=== PATIENT | female | born 1965 | race Caucasian/White ===

== ENCOUNTER → 2019-06-17 14:08 | Outpatient (BNVA) | payer MEDICARE, MEDICAID, SELFPAY | PROVIDERS: Family Provider Family Medicine; PCP Family Medicine; Visit Provider Nurse Practitioner | DX: F33.1 Major depressive disorder, recurrent, moderate (principal); F41.1 Generalized anxiety disorder | CPT/HCPCS: 99213 ==

== ENCOUNTER 2019-07-06 18:35 | Emergency (ER) | payer MEDICARE, MEDICAID, SELFPAY ==
[2019-07-06] VITALS (19 sets, daily range): BP systolic 126–148; BP diastolic 65–68; PULSE 71–86; RESP 12–23; TEMP 36.4; O2SAT 93–99; BMI 58.1
--- NOTE | 2019-07-06 18:48 | XR_ITS ---
WS: [id number] CHEST XRAY TECHNIQUE: Portable chest. CLINICAL INFORMATION: COMPARISON: FINDINGS: Heart: Normal cardiac silhouette. Lungs: Small right pleural effusion. Slight atelectasis right lung base. Trace left pleural fluid. Suarez rgical clips right lower neck. Bones: Normal visualized bony structures. XR/XR chest 1V portable [id number] IMPRESSION: 1. Small right pleural effusion with slight right basilar atelectasis. 2. Trace left pleural fluid.
--- NOTE | 2019-07-06 18:48 | ECG_ITS ---
Measurements Intervals [place] Rate: 70 P: 10 MI: 159 QRS: 28 QRSD: 90 T: 42 QT: 384 QTc: 417 SINUS RHYTHM Compared to ECG 01/27/2019 10:02:29 No significant changes Electronically Signed On 07-07-2019 17:51:27 COMMUNICATIONS EQUIPMENT OPERATOR by Aniyah Blanca M.D. [id number] f
--- NOTE | 2019-07-06 18:49 | W.ED.CHESTPA ---
HPI - Chest Pain General: Chief Complaint: Chest Pain Stated Complaint: CHEST PAIN Time Seen by Provider: 07/06/19 18:44 History of Present Illness: HPI narrative: Patient arrives via ambulance with complaint of chest pain for a week. Patient states her chest hurts when she takes a deep breath on the right upper side. Says she takes oxycodone nitroglycerin does not seem really to help. Denies diaphoresis nausea and vomiting. MD complaint: chest discomfort Pertinent past history: coronary artery disease Onset (ago): day(s) (7) Timing of current episode: episodic Prior episodes: Yes Onset: during rest and during exertion Pain location: right chest Pain radiation: none Quality: aching Relieving factors: nothing Associated symptoms: Reports no associated symptoms; Deny abdominal pain, dyspnea, fever(s), nausea or vomiting Review of Systems Const: Denies: fever, chills or body aches Eyes: Denies: change in vision or blurry vision ENMT: Denies: throat pain or nasal congestion Card: Reports: chest pain; Denies: shortness of breath on exertion Resp: Denies: shortness of breath, productive cough or non-productive cough GI: Denies: abdominal pain, nausea or vomiting Musc: Denies: extremity pain Skin/Breast: Denies: rash Neuro: Denies: headache Psych: Denies: anxiety or depression Elvis/Lymph: Denies: easy bruising PFSH ED PFSH: Statuses (acute, chronic, etc) shown below reflect problem list status as previously entered and may not be historically accurate Medical History (Updated 06/17/19 @ 14:16 by JODI Dixon) Generalized anxiety disorder (Acute) Major depressive disorder, recurrent, moderate (Acute) Social History (Updated 06/17/19 @ 14:25 by Astrid Adair LPN) Smoking and tobacco status: current every day smoker cigarettes Years cigarettes smoked: 34 Physical Exam Narrative: EXAM NARRATIVE: Morbid obesity Const: COMMON NORMALS: no apparent distress, average body habitus and oriented x3 HENMT: COMMON NORMALS: normocephalic HEAD & SCALP: normal to inspection and normocephalic FACE & SINUS: normal facial exam Eye: COMMON NORMALS: conjunctivae normal GENERAL EYE: normal appearance of both eyes CONJUNCTIVA: Yes conjunctivae normal Neck/C-Spine: COMMON NORMALS: no JVD Chest: COMMONS NORMALS: inspection of chest normal CHEST: Yes localized rib tenderness with anteroposterior compression (Right side) Resp: COMMON NORMALS: normal respiratory effort and clear to auscultation bilaterally AUSCULTATION: clear to auscultation bilaterally Cardio: COMMON NORMALS: no JVD, regular rate and regular rhythm RATE: regular rate RHYTHM: regular rhythm GI: COMMON NORMALS: normal to inspection, nondistended, normoactive bowel sounds Extremity: COMMON NORMALS: normal to inspection and full ROM Neuro: COMMON NORMALS: oriented x3 Course Vital Signs: Vital signs: Vital Signs Temperature 97.5 F L 07/06/19 18:36 Pulse Rate 76 07/06/19 18:36 Respiratory Rate 18 07/06/19 18:36 Blood Pressure 148/65 07/06/19 18:36 Pulse Oximetry 99 07/06/19 18:36 MDM - Chest Pain EKG Data^: EKG 1: EKG interpretation date: 07/06/19 EKG interpretation time: 18:56 Interpretation: NSR Discharge Plan Discharge Prescriptions: No Action bupropion HCl [Wellbutrin SR] 150 mg tablet sustained-release 12 hr 150 mg PO BID RF: 0 gabapentin 300 mg capsule 300 mg PO .bed RF: 0 levothyroxine 100 mcg capsule 100 mcg PO ONCE RF: 0 propranolol 10 mg tablet 10 mg PO BID RF: 0 montelukast [Singulair] 10 mg tablet 10 mg PO ONCE RF: 0 phentermine 37.5 mg capsule 37.5 mg PO ONCE RF: 0 celecoxib [Celebrex] 200 mg capsule 200 mg PO ONCE RF: 0 aripiprazole [Abilify] 5 mg tablet 5 mg PO DAILY Qty: 30 RF: 2 duloxetine [Cymbalta] 60 mg capsule,delayed release(DR/EC) 60 mg PO BID Qty: 60 RF: 2 Coding Level of Care Code ED Data Analytics Chief Scientist for Chg Fwd Exam Problem Focused
[2019-07-06 19:05] LABS: INR 1.07 (0.8-1.2)
[2019-07-06 19:07] LABS: Basophils # 0.1 10^3/uL (0.0-0.1); Basophils % 0.9 %; Eosinophils # 0.2 10^3/uL (0.0-0.8); Eosinophils % 4.4 %; Hematocrit 36.1 % (37.0-47.0); Hemoglobin 11.4 g/dL (11.5-15.3); Lymphocytes # 1.3 10^3/uL (0.8-4.8); Lymphocytes % 22.9 %; Mean Corpuscular HGB Conc 31.6 g/dL (30.0-36.0); Mean Corpuscular Hemoglobin 28.5 pg (28.0-34.0); Mean Corpuscular Volume 90.3 fL (81-99); Mean Platelet Volume 10.2 fL (7.4-10.4); Monocytes # 0.7 10^3/uL (0.2-0.9); Monocytes % 12.3 %; Neutrophils # 3.2 10^3/uL (1.8-7.7); Neutrophils % 59.3 %; Nucleated Red Blood Cells % 0 %; Platelet Count 263 10^3/cmm (130-400); Red Cell Distribution Width 17.3 % (12.1-15.1); White Blood Count 5.5 10^3/uL (4.0-10.0)
[2019-07-06 19:25] LABS: Troponin(5th) Baseline 10 ng/mL (0-10)
[2019-07-06 19:34] LABS: Alanine Aminotransferase 14 U/L (0-33); Albumin Level 3.4 g/dL (3.5-5.2); Alkaline Phosphatase 255 IU/L (35-105); Aspartate Amino Transferase 24 U/L (0-32); Blood Urea Nitrogen 15 mg/dL (6-20); Calcium 10.1 mg/dL (8.5-10.5); Carbon Dioxide 26 mmol/L (22-29); Chloride 105 mmol/L (98-107); Globulin 3.3 g/dL (1.3-4.6); Glomerular Filtration Rate 58.2 mL/min (90-130); Glucose 104 mg/dL (74-109); NT Pro B Type Natriuretic Pept 64 pg/mL (0-125); Sodium 142 mmol/L (136-145); Total Bilirubin 0.4 mg/dL (0.15-1.2); Total Protein 6.7 g/dL (6.6-8.7)
[2019-07-06] MEDS: ketorolac 10 mg Tablet PO (19:47)
[2019-07-06 20:48] LABS: Troponin 5 2HR 9.71 ng/mL (0-10)
[2019-07-06 20:55] LABS: Troponin 5 2HR Delta -0.29 ABS# (0-10)
== END 2019-07-06 20:30 | disposition home or self-care (01) ==
PROVIDERS: Emergency Provider Nurse Practitioner Family; Family Provider Family Medicine; PCP Family Medicine
DX: R07.9 Chest pain, unspecified (principal); F17.210 Nicotine dependence, cigarettes, uncomplicated
CPT/HCPCS: 36415; 71045; 80053; 83880; 84484; 85025; 85610; 93005; 99282

== ENCOUNTER → 2019-07-24 10:30 | Outpatient (BNVA) | payer MEDICARE, MEDICAID, SELFPAY | PROVIDERS: Family Provider Family Medicine; PCP Family Medicine; Visit Provider Specialist | DX: G43.711 Chronic migraine without aura, intractable, with status migrainosus (principal) | CPT/HCPCS: 64615; J0585 ==

== ENCOUNTER 2019-08-12 10:30 | Emergency (ER) | payer MEDICARE, MEDICAID, SELFPAY ==
[2019-08-12 10:35] VITALS: BP 149/82; PULSE 85; RESP 15; TEMP 36.9; O2SAT 100; BMI 58.1
--- NOTE | 2019-08-12 11:17 | XR_ITS ---
WS: [id number] XR chest 1V portable [id number] REASON FOR EXAM: cough FINDINGS: Low-grade infiltrate is seen in the right lower lung. The remaining lung garza show normal appearance with normal aeration, no pulmonary edema, pneumonia, pleural effusion. The heart and mediastinal interfaces are normal. XR/XR chest 1V portable [id number] IMPRESSION: Early inflammatory changes suggesting a pneumonitis in the right lung base.
--- NOTE | 2019-08-12 12:32 | W.ED.GENADLT ---
HPI - General Adult General: Chief complaint: General Medical Stated complaint: COUGH` Time Seen by Provider: 08/12/19 12:30 History of Present Illness: HPI narrative: Patient with cough last few days. No fever chills no shortness of breath no chest pain complaint: cough Onset (ago): day(s) Location: chest Radiation: non-radiation Relieving factors: none Exacerbating factors: none Associated symptoms: Reports cough; Deny chest pain, dyspnea, fevers/chills, headache(s), nausea, rash or vomiting Review of Systems Const: Denies: fever, chills or body aches Eyes: Denies: change in vision or blurry vision ENMT: Denies: throat pain or nasal congestion Card: Denies: chest pain or shortness of breath on exertion Resp: Reports: non-productive cough; Denies: shortness of breath or productive cough GI: Denies: abdominal pain, nausea or vomiting Musc: Denies: extremity pain Skin/Breast: Denies: rash Neuro: Denies: headache Psych: Denies: anxiety or depression Elivs/Lymph: Denies: easy bruising PFSH ED PFSH: Social History Smoking and tobacco status: current every day smoker cigarettes Years cigarettes smoked: 34 Physical Exam Const: COMMON NORMALS: no apparent distress, average body habitus and oriented x3 HENMT: COMMON NORMALS: normocephalic HEAD & SCALP: normal to inspection and normocephalic FACE & SINUS: normal facial exam Eye: COMMON NORMALS: conjunctivae normal GENERAL EYE: normal appearance of both eyes CONJUNCTIVA: Yes conjunctivae normal Neck/C-Spine: COMMON NORMALS: no JVD Chest: COMMONS NORMALS: inspection of chest normal Resp: COMMON NORMALS: normal respiratory effort and clear to auscultation bilaterally AUSCULTATION: clear to auscultation bilaterally Cardio: COMMON NORMALS: no JVD, regular rate and regular rhythm RATE: regular rate RHYTHM: regular rhythm GI: COMMON NORMALS: normal to inspection, nondistended, normoactive bowel sounds Extremity: COMMON NORMALS: normal to inspection and full ROM Neuro: COMMON NORMALS: oriented x3 Course Vital Signs: Vital signs: Vital Signs Temperature 98.4 F 08/12/19 10:35 Pulse Rate 85 08/12/19 10:35 Respiratory Rate 15 08/12/19 10:35 Blood Pressure 149/82 08/12/19 10:35 Pulse Oximetry 100 08/12/19 10:35 Discharge Plan Discharge Prescriptions: No Action bupropion HCl [Wellbutrin SR] 150 mg tablet sustained-release 12 hr 150 mg PO BID RF: 0 gabapentin 300 mg capsule 300 mg PO .bed RF: 0 levothyroxine 100 mcg capsule 100 mcg PO ONCE RF: 0 propranolol 10 mg tablet 10 mg PO BID RF: 0 montelukast [Singulair] 10 mg tablet 10 mg PO ONCE RF: 0 phentermine 37.5 mg capsule 37.5 mg PO ONCE RF: 0 celecoxib [Celebrex] 200 mg capsule 200 mg PO ONCE RF: 0 aripiprazole [Abilify] 5 mg tablet 5 mg PO DAILY Qty: 30 RF: 2 duloxetine [Cymbalta] 60 mg capsule,delayed release(DR/EC) 60 mg PO BID Qty: 60 RF: 2 Coding Level of Care Code ED Cytogeneticist for Jose Graham
[2019-08-12 12:41] VITALS: BP 158/89; PULSE 75; RESP 18; O2SAT 95
== END 2019-08-12 12:41 | disposition home or self-care (01) ==
PROVIDERS: Emergency Provider Nurse Practitioner Family; Family Provider Family Medicine; PCP Family Medicine
DX: R05 Cough (principal); F17.210 Nicotine dependence, cigarettes, uncomplicated
CPT/HCPCS: 71045; 99281; 99282

== ENCOUNTER → 2019-09-10 07:37 | Outpatient (BNVA) | payer MEDICARE, MEDICAID, SELFPAY | PROVIDERS: Family Provider Family Medicine; PCP Family Medicine; Visit Provider Nurse Practitioner | DX: F33.1 Major depressive disorder, recurrent, moderate (principal); F41.1 Generalized anxiety disorder | CPT/HCPCS: 99213 ==

== ENCOUNTER 2019-10-07 15:13 | Emergency (ER) | payer MEDICARE, MEDICAID, SELFPAY ==
[2019-10-07 15:14] VITALS: BP 144/79; PULSE 80; RESP 20; TEMP 36.9; O2SAT 99; BMI 54.8
--- NOTE | 2019-10-07 15:18 | W.ED.WEAKNES ---
HPI - Weakness General: Chief complaint: Weakness Stated complaint: WEAKNESS Time Seen by Provider: 10/07/19 15:14 History of Present Illness: HPI Narrative: Patient reportedly called EMS because she has been generally tired and weak today. Patient states that she got up to go to the bathroom and was walking just fine but had difficulty getting back to her chair. Patient did not fall, she says that her legs just feel heavy it should be noted that this patient is severely morbidly obese. MD Complaint: generalized weakness, lack of energy and difficulty walking Duration: constant Location: generalized, LLE and RLE Migration: none Severity: severe Review of Systems General: Reports: 10 or more systems reviewed and unremarkable except in HPI and below Const: Reports: body aches, fatigue and malaise PFSH ED PFSH: Medical History Generalized anxiety disorder Major depressive disorder, recurrent, moderate Social History Smoking and tobacco status: current every day smoker cigarettes Years cigarettes smoked: 34 Physical Exam Const: COMMON NORMALS: no apparent distress, oriented x3 and alert GENERAL APPEARANCE: disheveled NUTRITIONAL APPEARANCE: obese morbidly obese HENMT: COMMON NORMALS: normocephalic HEAD & SCALP: normocephalic Neck/C-Spine: COMMON NORMALS: no JVD Resp: COMMON NORMALS: normal respiratory effort and clear to auscultation bilaterally AUSCULTATION: clear to auscultation bilaterally Cardio: COMMON NORMALS: no JVD, regular rate and regular rhythm RATE: regular rate RHYTHM: regular rhythm GI: COMMON NORMALS: soft to palpation, non-tender, no hepatosplenomegaly and no masses PALPATION: Yes soft and Yes no hepatosplenomegaly Extremity: NARRATIVE EXTREMITY EXAM: Extremely severe morbid obesity Neuro: COMMON NORMALS: oriented x3 SENSORIUM/ORIENTATION: Yes alert Course Vital Signs: Vital signs: Vital Signs Temperature 98.5 F 10/07/19 15:14 Pulse Rate 80 10/07/19 15:14 Respiratory Rate 20 H 10/07/19 15:14 Blood Pressure 144/79 10/07/19 15:14 Pulse Oximetry 99 10/07/19 15:14 MDM - Weakness Lab Data: Labs: Lab Results 04/28/20 Range/Units 15:20 POC Glucose 88 (70-110) mg/dL Discharge Plan Discharge Condition: Stable Prescriptions: No Action bupropion HCl [Wellbutrin SR] 150 mg tablet sustained-release 12 hr 150 mg PO BID RF: 0 gabapentin 300 mg capsule 300 mg PO .bed RF: 0 levothyroxine 100 mcg capsule 100 mcg PO ONCE RF: 0 propranolol 10 mg tablet 10 mg PO BID RF: 0 montelukast [Singulair] 10 mg tablet 10 mg PO ONCE RF: 0 phentermine 37.5 mg capsule 37.5 mg PO ONCE RF: 0 celecoxib [Celebrex] 200 mg capsule 200 mg PO ONCE RF: 0 aripiprazole [Abilify] 5 mg tablet 5 mg PO DAILY Qty: 30 RF: 2 duloxetine [Cymbalta] 60 mg capsule,delayed release(DR/EC) 60 mg PO BID Qty: 60 RF: 2 oxycodone 5 mg tablet 5 mg PO Q6H PRN (Reason: pain) RF: 0 zonisamide [Zonegran] 100 mg capsule 600 mg PO DAILY Qty: 180 RF: 2 Zithromax Z-Denzel 250 mg tablet See Rx Instructions .ROUTE .COMPLEX Qty: 6 RF: 0 Medrol (Denzel) 4 mg tablets,dose pack See Rx Instructions .ROUTE .COMPLEX Qty: 21 RF: 0 Coding Level of Care Code ED Rheumatologist for Chg Fwd Exam Detailed
--- NOTE | 2019-10-07 15:25 | XR_ITS ---
WS: [id number] PORTABLE CHEST HISTORY: weakness COMPARISON: None available. Very mild fluid overload and interstitial edema. Small bilateral pleural effusions, RIGHT greater edgardo n LEFT. Mild progression since the prior study. Cardiac size: Normal. Mediastinum/Aorta: Normal mediastinum. No osseous abnormality seen. XR/XR chest 1V portable [id number] IMPRESSION: 1. Mild interstitial edema has developed since 08/12/2019. 2. Small bilateral pleural effusions, RIGHT greater than LEFT.
--- NOTE | 2019-10-07 15:25 | CT_ITS ---
WS: [id number] CT HEAD NONCONTRAST HISTORY: somnolence TECHNIQUE: Contiguous axial imaging performed through the brain in 2.5 mm imaging. Bone and soft tiss ue windows. Sagittal and coronal reformats reviewed. All CT scans at [facility] use at ast one of these dose optimization techniques: automated exposure control; mA and/or kV adjustment pe r patient size (includes targeted exams where dose is matched to clinical indication); or iterative r econstruction. DLP: 844.7 mGy.cm COMPARISON: 01/27/2019 No acute intracranial hemorrhage, midline shift or mass effect. Mild atrophy and mild chronic microvascular ischemic disease. Very similar to the prior study. No maxime or or acute infarcts. Ventricles: Normal size with no hydrocephalus. No inferior displacement of the cerebellar tonsils. Paranasal sinuses: As visualized are clear. Mastoid air cells: Well pneumatized. Calvarium and scalp: Skull is intact with no soft tissue edema or swelling. CT/CT head wo con* [id number] IMPRESSION: No acute intracranial hemorrhage or edema. Stable noncontrast head CT.
--- NOTE | 2019-10-07 15:28 | ECG_ITS ---
Measurements Intervals [place] Rate: 77 P: 28 WI: 157 QRS: 37 QRSD: 89 T: 51 QT: 368 QTc: 418 SINUS RHYTHM Compared to ECG 07/06/2019 18:54:45 No significant changes Electronically Signed On 10-07-2019 18:10:31 CDT by Aniyah Blanca M.D. [id number] f
[2019-10-07 15:29] LABS: Glucose Point of Care 88 mg/dL (70-110)
--- NOTE | 2019-10-07 15:31 | PC.NURSE ---
Pt transported to CT with wood technologist.
[2019-10-07 16:11] LABS: Basophils # 0.1 10^3/uL (0.0-0.1); Basophils % 0.9 %; Eosinophils # 0.3 10^3/uL (0.0-0.8); Hematocrit 40.5 % (37.0-47.0); Hemoglobin 12.2 g/dL (11.5-15.3); Lymphocytes # 1.7 10^3/uL (0.8-4.8); Lymphocytes % 26.4 %; Mean Corpuscular HGB Conc 30.1 g/dL (30.0-36.0); Mean Corpuscular Volume 93.1 fL (81-99); Monocytes # 0.9 10^3/uL (0.2-0.9); Monocytes % 13.6 %; Neutrophils # 3.6 10^3/uL (1.8-7.7); Neutrophils % 54.9 %; Nucleated Red Blood Cells % 0 %; Platelet Count 284 10^3/cmm (130-400); Red Blood Count 4.35 10^6/uL (4.1-5.3); Red Cell Distribution Width 18.4 % (12.1-15.1); White Blood Count 6.5 10^3/uL (4.0-10.0)
[2019-10-07 16:24] LABS: Lactate (Lactic Acid level) 1.8 mmol/L (0.5-2.2)
[2019-10-07 16:25] LABS: Troponin(5th) Baseline 9 ng/mL (0-10)
[2019-10-07 16:40] LABS: Blood Urine 3+ (Negative); Glucose Urine UA Norm (Normal); Ketones Urine 1+ (Negative); Protein Urine Neg (Negative); Urine Appearance Cloudy (CLEAR); Urine Color Amber (Yellow); pH Urine 5 (5-7)
[2019-10-07 16:41] LABS: Add Urine Microscopic? YES; Bilirubin Urine 1+ (NEGATIVE); Leukocyte Esterase Urine 2+ (Negative); Nitrate Urine Positive (Negative); RBC Urine 25-40 /hpf (0-2); Urobilinogen Urine 1 mg/dL (Negative)
[2019-10-07 16:42] LABS: Add Urine Culture? Yes; Bacteria Urine 2+; Squamous Epithelial Cell Urine 0-4 (0-5); WBC Urine 55-80 /hpf (0-5)
[2019-10-07 16:59] LABS: Alanine Aminotransferase 19 U/L (0-33); Albumin Level 3.5 g/dL (3.5-5.2); Alkaline Phosphatase 325 IU/L (35-105); Anion Gap 17.9 (5-19); Aspartate Amino Transferase 33 U/L (0-32); Blood Urea Nitrogen 15 mg/dL (6-20); Calcium 9.5 mg/dL (8.5-10.5); Carbon Dioxide 21 mmol/L (22-29); Chloride 106 mmol/L (98-107); Globulin 3.9 g/dL (1.3-4.6); Glomerular Filtration Rate 47.2 mL/min (90-130); Glucose 93 mg/dL (65-115); NT Pro B Type Natriuretic Pept 132 pg/mL (0-125); Osmolality Calculated 288 mOsm/kg (285-295); Potassium 3.9 mmol/L (3.5-5.1); Sodium 141 mmol/L (136-145); Total Bilirubin 0.5 mg/dL (0.15-1.2); Total Protein 7.4 g/dL (6.6-8.7)
[2019-10-07] MEDS: lidocaine 1% INJ 20 mL IM (17:19)
[2019-10-07] MEDS: cefTRIAXone 1,000 mg SDV 1000 MG IM (17:20)
--- NOTE | 2019-10-07 17:28 | ECG_ITS ---
Measurements Intervals [place] Rate: 77 P: 13 WI: 173 QRS: 29 QRSD: 90 T: 37 QT: 368 QTc: 419 SINUS RHYTHM Compared to ECG 07/06/2019 18:54:45 No significant changes Electronically Signed On 10-07-2019 18:14:23 CDT by Aniyah Blanca M.D. [id number] f
[2019-10-07 17:35] VITALS: BP 139/93; PULSE 76; RESP 17; O2SAT 99
[2019-10-07 19:06] LABS: Troponin 5 2HR 8.81 ng/mL (0-10)
[2019-10-07 19:11] VITALS: BP 189/85; PULSE 97; RESP 16; O2SAT 98
--- NOTE | 2019-10-07 19:14 | ED_ITS ---
HPI - Weakness General: Chief complaint: Weakness Stated complaint: WEAKNESS Time Seen by Provider: 10/07/19 15:14 History of Present Illness: MD Complaint: generalized weakness, lack of energy and difficulty walking Location: generalized, LLE and RLE Severity: severe PFSH ED PFSH: Medical History Generalized anxiety disorder Major depressive disorder, recurrent, moderate Social History Smoking and tobacco status: current every day smoker cigarettes Years cigarettes smoked: 34 Course Vital Signs: Vital signs: Vital Signs Temperature 98.5 F 10/07/19 15:14 Pulse Rate 76 10/07/19 17:35 Respiratory Rate 17 10/07/19 17:35 Blood Pressure 139/93 10/07/19 17:35 Pulse Oximetry 99 10/07/19 17:35 MDM - Weakness MDM Narrative: Medical decision making narrative: Care turned over to me at change of shift from Dr. Lomax. Please see his note for his history, physical exam and medical decision-making notes. Patient's generalized weakness is likely due to her UTI. She does not meet sepsis criteria nor does she appear clinically septic. Both EKGs are normal and her troponin is normal. She is already been given a shot of Rocephin and I will send her home on antibiotics. This is the plan the patient was to proceed with. She denies/declines having any other problems or wanting anything else done. She agrees to return should her symptoms change or worsen. At this time her physical exam is unchanged from Dr. Lomax's exam and her vital signs are stable. Lab Data: Attestation: I reviewed the patient's lab results. Labs: Lab Results 10/07/19 10/07/19 10/07/19 Range/Units 15:20 15:55 16:01 WBC 6.5 (4.0-10.0) 10^3/ uL RBC 4.35 (4.1-5.3) 10^6/u L Hgb 12.2 (11.5-15.3) g/dL Hct 40.5 (37.0-47.0) % MCV 93.1 (81-99) fL MCH 28.0 (28.0-34.0) pg MCHC 30.1 (30.0-36.0) g/dL RDW 18.4 H (12.1-15.1) % Plt Count 284 (130-400) 10^3/c mm MPV 10.0 (7.4-10.4) fL Neut % (Auto) 54.9 % Lymph % (Auto) 26.4 % [place] % (Auto) 13.6 % Eos % (Auto) 4.0 % Baso % (Auto) 0.9 % Neut # (Auto) 3.6 (1.8-7.7) 10^3/u L Lymph # (Auto) 1.7 (0.8-4.8) 10^3/u L [place] # (Auto) 0.9 (0.2-0.9) 10^3/u L Eos # (Auto) 0.3 (0.0-0.8) 10^3/u L Baso # (Auto) 0.1 (0.0-0.1) 10^3/u L Nucleated RBC % (a uto) 0 % Nucleated RBCs # 0.0 /100WBC Sodium (136-145) mmol/L Potassium (3.5-5.1) mmol/L Chloride (98-107) mmol/L Carbon Dioxide (22-29) mmol/L Anion Gap (5-19) BUN (6-20) mg/dL Creatinine (0.5-0.9) mg/dL GFR Calculation (90-130) mL/min Glucose (65-115) mg/dL POC Glucose 88 (70-110) mg/dL Calculated Osmolal ity (285-295) mOsm/k g Lactate (0.5-2.2) mmol/L Calcium (8.5-10.5) mg/dL Total Bilirubin (0.15-1.2) mg/dL AST (0-32) U/L ALT (0-33) U/L Alkaline Phosphata se (35-105) IU/L Troponin T Baselin e (0-10) ng/mL Troponin T 120 Min [place] (0-10) ng/mL NT-Pro-B Natriuret Pep (0-125) pg/mL Total Protein (6.6-8.7) g/dL Albumin (3.5-5.2) g/dL Globulin (1.3-4.6) g/dL Urine Color Sandra (Yellow) Urine Appearance Cloudy (CLEAR) Urine pH 5 (5-7) Ur Specific Gravit y 1.020 (1.005-1.030) Urine Protein Neg (Negative) Urine Glucose (UA) Norm (Normal) Urine Ketones 1+ H (Negative) Urine Blood 3+ H (Negative) Urine Nitrate Positive H (Negative) Urine Bilirubin 1+ H (NEGATIVE) Urine Urobilinogen 1 H (Negative) mg/dL Ur Leukocyte Yoly ase 2+ H (Negative) Urine RBC 25-40 H (0-2) /hpf Urine WBC 55-80 H (0-5) /hpf Ur Squamous Epith Cells 0-4 H (0-5) Urine Bacteria 2+ H (NONE) 10/07/19 10/07/19 10/07/19 Range/Units 16:01 16:01 16:01 WBC (4.0-10.0) 10^3/ uL RBC (4.1-5.3) 10^6/u L Hgb (11.5-15.3) g/dL Hct (37.0-47.0) % MCV (81-99) fL MCH (28.0-34.0) pg MCHC (30.0-36.0) g/dL RDW (12.1-15.1) % Plt Count (130-400) 10^3/c mm MPV (7.4-10.4) fL Neut % (Auto) % Lymph % (Auto) % [place] % (Auto) % Eos % (Auto) % Baso % (Auto) % Neut # (Auto) (1.8-7.7) 10^3/u L Lymph # (Auto) (0.8-4.8) 10^3/u L [place] # (Auto) (0.2-0.9) 10^3/u L Eos # (Auto) (0.0-0.8) 10^3/u L Baso # (Auto) (0.0-0.1) 10^3/u L Nucleated RBC % (a uto) % Nucleated RBCs # /100WBC Sodium 141 (136-145) mmol/L Potassium 3.9 (3.5-5.1) mmol/L Chloride 106 (98-107) mmol/L Carbon Dioxide 21 L (22-29) mmol/L Anion Gap 17.9 (5-19) BUN 15 (6-20) mg/dL Creatinine 1.2 H (0.5-0.9) mg/dL GFR Calculation 47.2 L (90-130) mL/min Glucose 93 (65-115) mg/dL POC Glucose (70-110) mg/dL Calculated Osmolal ity 288 (285-295) mOsm/k g Lactate 1.8 (0.5-2.2) mmol/L Calcium 9.5 (8.5-10.5) mg/dL Total Bilirubin 0.5 (0.15-1.2) mg/dL AST 33 H (0-32) U/L ALT 19 (0-33) U/L Alkaline Phosphata se 325 H (35-105) IU/L Troponin T Baselin e 9 (0-10) ng/mL Troponin T 120 Min [place] (0-10) ng/mL NT-Pro-B Natriuret Pep 132 H (0-125) pg/mL Total Protein 7.4 (6.6-8.7) g/dL Albumin 3.5 (3.5-5.2) g/dL Globulin 3.9 (1.3-4.6) g/dL Urine Color (Yellow) Urine Appearance (CLEAR) Urine pH (5-7) Ur Specific Gravit y (1.005-1.030) Urine Protein (Negative) Urine Glucose (UA) (Normal) Urine Ketones (Negative) Urine Blood (Negative) Urine Nitrate (Negative) Urine Bilirubin (NEGATIVE) Urine Urobilinogen (Negative) mg/dL Ur Leukocyte Yoly ase (Negative) Urine RBC (0-2) /hpf Urine WBC (0-5) /hpf Ur Squamous Epith Cells (0-5) Urine Bacteria (NONE) 10/07/19 Range/Units 18:04 WBC (4.0-10.0) 10^3/ uL RBC (4.1-5.3) 10^6/u L Hgb (11.5-15.3) g/dL Hct (37.0-47.0) % MCV (81-99) fL MCH (28.0-34.0) pg MCHC (30.0-36.0) g/dL RDW (12.1-15.1) % Plt Count (130-400) 10^3/c mm MPV (7.4-10.4) fL Neut % (Auto) % Lymph % (Auto) % [place] % (Auto) % Eos % (Auto) % Baso % (Auto) % Neut # (Auto) (1.8-7.7) 10^3/u L Lymph # (Auto) (0.8-4.8) 10^3/u L [place] # (Auto) (0.2-0.9) 10^3/u L Eos # (Auto) (0.0-0.8) 10^3/u L Baso # (Auto) (0.0-0.1) 10^3/u L Nucleated RBC % (a uto) % Nucleated RBCs # /100WBC Sodium (136-145) mmol/L Potassium (3.5-5.1) mmol/L Chloride (98-107) mmol/L Carbon Dioxide (22-29) mmol/L Anion Gap (5-19) BUN (6-20) mg/dL Creatinine (0.5-0.9) mg/dL GFR Calculation (90-130) mL/min Glucose (65-115) mg/dL POC Glucose (70-110) mg/dL Calculated Osmolal ity (285-295) mOsm/k g Lactate (0.5-2.2) mmol/L Calcium (8.5-10.5) mg/dL Total Bilirubin (0.15-1.2) mg/dL AST (0-32) U/L ALT (0-33) U/L Alkaline Phosphata se (35-105) IU/L Troponin T Baselin e (0-10) ng/mL Troponin T 120 Min [place] 8.81 (0-10) ng/mL NT-Pro-B Natriuret Pep (0-125) pg/mL Total Protein (6.6-8.7) g/dL Albumin (3.5-5.2) g/dL Globulin (1.3-4.6) g/dL Urine Color (Yellow) Urine Appearance (CLEAR) Urine pH (5-7) Ur Specific Gravit y (1.005-1.030) Urine Protein (Negative) Urine Glucose (UA) (Normal) Urine Ketones (Negative) Urine Blood (Negative) Urine Nitrate (Negative) Urine Bilirubin (NEGATIVE) Urine Urobilinogen (Negative) mg/dL Ur Leukocyte Yoly ase (Negative) Urine RBC (0-2) /hpf Urine WBC (0-5) /hpf Ur Squamous Epith Cells (0-5) Urine Bacteria (NONE) Discharge Plan Discharge Patient Disposition: Home, Self-Care Clinical Impression: Chronic fatigue and malaise, Leg heaviness UTI (urinary tract infection) Qualifiers: Urinary tract infection type: site unspecified Hematuria presence: without hematuria Qualified Code(s): N39.0 - Urinary tract infection, site not specified Condition: Stable Prescriptions: New cefdinir 300 mg capsule 300 mg PO Q12H 10 Days Qty: 20 RF: 0 No Action bupropion HCl [Wellbutrin SR] 150 mg tablet sustained-release 12 hr 150 mg PO BID RF: 0 gabapentin 300 mg capsule 300 mg PO BEDTIME RF: 0 levothyroxine 100 mcg capsule 100 mcg PO DAILY RF: 0 propranolol 10 mg tablet 10 mg PO BID RF: 0 montelukast [Singulair] 10 mg tablet 10 mg PO DAILY RF: 0 phentermine 37.5 mg capsule 37.5 mg PO DAILY RF: 0 celecoxib [Celebrex] 200 mg capsule 200 mg PO DAILY RF: 0 aripiprazole [Abilify] 5 mg tablet 5 mg PO DAILY Qty: 30 RF: 2 duloxetine [Cymbalta] 60 mg capsule,delayed release(DR/EC) 60 mg PO BID Qty: 60 RF: 2 oxycodone 5 mg tablet 5 mg PO Q6H PRN (Reason: pain) RF: 0 zonisamide [Zonegran] 100 mg capsule 600 mg PO DAILY Qty: 180 RF: 2 baclofen 10 mg Tablet 10 mg PO DAILY RF: 0 nitroglycerin 0.4 mg tablet, sublingual 0.4 mg sublingual PRN PRN (Reason: CHEST PAINS) RF: 0 Eliquis 5 mg tablet 5 mg PO DAILY RF: 0 fluticasone prp-sod.chl,bicarb 50 mcg- 0.9 % Kit,Dolliver Suspension And Dolliver See Rx Instructions .ROUTE .COMPLEX RF: 0 Referrals: Emerson Baker Jr, MD [Primary Care Provider] - 1-3 days Discharge Diet: Advance as tolerated Discharge Activity: Increase activity as tolerated Patient Instructions: Urinary Tract Infection in Women (ED) Activity Restrictions/Additional Instructions: Please return to the ER immediately for any of the signs or symptoms listed on your discharge instruction sheets, worsening/changing of your symptoms, you are not getting better as quickly as expected, or for ANY other cause or concerns. Increase your fluid/water intake to help flush out your kidneys. Take the antibiotics as I have prescribed to clear your urinary tract infection. Be certain to follow-up with Dr. Jones in the next 1 to 3 days for recheck of your symptoms. If your symptoms worsen at all please return to the ER immediately for recheck. Sign Out Sign Out Data: Patient Sign Out occurred on 10/07/19 at 18:15. Patient's care was discussed, and care was transferred from Stas Hernandez to Teetee Lawson. Sign Out Comment: Dr Lawson Last updated by Stas Hernandez DO at 10/07/19 17:32 Coding Level of Care Code ED Refrigeration Service Inspector for Jose Graham
[2019-10-07 20:03] LABS: Troponin 5 2HR Delta -0.19 ABS# (0-10)
== END 2019-10-07 19:47 | disposition home or self-care (01) ==
PROVIDERS: Family Medicine; Emergency Provider Emergency Medicine; Family Provider Family Medicine; PCP Family Medicine
DX: R53.82 Chronic fatigue, unspecified (principal); R53.81 Other malaise; N39.0 Urinary tract infection, site not specified; Z79.01 Long term (current) use of anticoagulants; F17.210 Nicotine dependence, cigarettes, uncomplicated
CPT/HCPCS: 12345; 36415; 36416; 70450; 71045; 80053; 81001; 82962; 83605; 83880; 84484; 85025; 87077; 87086; 87186; 93005; 96372; 99282; 99284; J0696; J2001

== ENCOUNTER → 2019-10-16 10:57 | Outpatient (BNVA) | payer MEDICARE, MEDICAID, SELFPAY | PROVIDERS: Family Provider Family Medicine; PCP Family Medicine; Visit Provider Specialist | DX: G43.711 Chronic migraine without aura, intractable, with status migrainosus (principal); F17.210 Nicotine dependence, cigarettes, uncomplicated | CPT/HCPCS: 64615; J0585 ==

== ENCOUNTER 2019-10-29 18:19 | Emergency (ER) | payer MEDICARE, MEDICAID, SELFPAY ==
[2019-10-29 18:23] VITALS: BP 161/72; PULSE 90; RESP 18; TEMP 36.6; O2SAT 98; BMI 54.8
--- NOTE | 2019-10-29 18:30 | XR_ITS ---
WS: [id number] CHEST XRAY TECHNIQUE: Portable chest. CLINICAL INFORMATION: cp COMPARISON: October 07, 2019 FINDINGS: Surgical clips at the thoracic inlet. Heart: Normal cardiac silhouette. Lungs: Patchy interstitial infiltrates in the right lower lobe medially slightly progressed from prev ious. Recommend correlation for right lower lobe pneumonia. Left lung is well aerated. Trace bilatera l pleural fluid/pleural thickening is unchanged. Bones: Normal visualized bony structures. XR/XR chest 1V portable [id number] IMPRESSION: 1. Patchy interstitial infiltrates in the right lower lobe medially progressed from previous.Correlation for pneumonitis. 2. Trace bilateral pleural fluid/pleural thickening is unchanged.
--- NOTE | 2019-10-29 18:30 | ECG_ITS ---
Measurements Intervals [place] Rate: 80 P: 5 [place]: 174 QRS: 29 QRSD: 80 T: 43 QT: 352 QTc: [address] DEPRESSION [0.05+ mV ST DEPRESSION] Compared to ECG 10/07/2019 17:39:07 ST (T wave) deviation now present Electronically Signed On 10-31-2019 18:18:50 CDT by Suzie Hassan M.D. [id number]
[2019-10-29 18:32] VITALS: O2SAT 100
--- NOTE | 2019-10-29 18:41 | PC.NURSE ---
portable xray at bedside
[2019-10-29] MEDS: ketorolac 30 mg/mL INJ 15 MG IVP (18:48)
[2019-10-29 19:05] VITALS: BP 133/77; O2SAT 94
--- NOTE | 2019-10-29 19:09 | ED_ITS ---
HPI - Extremity Problem General: Chief complaint: Extremity Problem,Nontraumatic Stated complaint: LEFT SHOULDER PAIN Time Seen by Provider: 10/29/19 18:27 Source: patient Mode of arrival: EMS Limitations: no limitations History of Present Illness: HPI Narrative: 54-year-old female states she has left-sided chest pain over the last day. States pain is sharp in nature and worse with movement of her left arm. She states she put some muscle cream on it that is helped. States pain is currently 3 out of 10. She denies any shortness of breath or nausea. Denies any swelling in her arm. Complaint: extremity pain Associated symptoms: Reports chest pain; Deny fever(s) or rash Review of Systems Const: Denies: fever(s), chills, body aches or change in appetite Eyes: Denies: blurry vision or eye discomfort ENMT: Denies: throat pain or dental pain Card: Reports: chest pain Resp: Denies: dyspnea GI: Denies: abdominal pain, nausea, vomiting or diarrhea : Denies: dysuria Musc: Denies: neck pain or back pain Skin/Breast: Denies: rash Neuro: Denies: headache(s) Psych: Denies: depression Elvis/Lymph: Denies: easy bruising All/Imm: Denies: urticaria PFSH ED PFSH: Medical History Generalized anxiety disorder Major depressive disorder, recurrent, moderate Social History Smoking and tobacco status: current every day smoker cigarettes Years cigarettes smoked: 34 Physical Exam Const: COMMON NORMALS: no acute distress, patient oriented x3 and healthy appearing HENMT: COMMON NORMALS: normocephalic and atraumatic HEAD & SCALP: normocephalic and atraumatic Eye: COMMON NORMALS: Equal, round and reactive pupils present and EOMs intact bilaterally PUPIL: Yes Equal, round and reactive pupils present Neck/C-Spine: COMMON NORMALS: full ROM and supple Chest: COMMONS NORMALS: normal inspection of the chest OTHER: point tender over left chest wall reproduces her pain Resp: COMMON NORMALS: normal respiratory effort, No retractions, No use of accessory muscles and clear to auscultation bilaterally AUSCULTATION: clear to auscultation bilaterally Cardio: COMMON NORMALS: regular rate, regular rhythm and No murmurs present (Cardio) RATE: regular rate RHYTHM: regular rhythm GI: COMMON NORMALS: Normal to inspection, nondistended, normoactive bowel sounds present, Soft to palpation, non-tender and no masses PALPATION: Yes Soft to palpation Extremity: COMMON NORMALS: normal to inspection and full ROM Neuro: COMMON NORMALS: patient oriented x3, moves all extremities and no focal motor deficits Psych: COMMON NORMALS: mental status grossly normal, Normal thought process present and cooperative THOUGHT PROCESS: Normal thought process present Skin: COMMON NORMALS: no rashes or lesions noted and no wounds GENERAL SKIN EXAM: no rashes or lesions noted Course Vital Signs: Vital signs: Vital Signs Temperature 97.9 F 10/29/19 18:23 Pulse Rate 90 10/29/19 18:23 Respiratory Rate 18 10/29/19 18:23 Blood Pressure 133/77 10/29/19 19:05 Pulse Oximetry 94 10/29/19 19:05 MDM - Extremity (Nontraumatic) MDM Narrative: Medical decision making narrative: Patient presents here with chest pain that is likely muscular in nature. She is point tender on exam. Her pain was relieved with Toradol. Patient EKG and x-ray are normal and she has no signs of cardiac cause or pulmonary embolism. Patient is stable for discharge and is return if worsening. Imaging Data^: CXR: Attestation: I personally reviewed and interpreted this imaging study as follows: My impression: no acute abnormality EKG Data^: EKG 1: Attestation: I personally reviewed and interpreted this EKG as follows: EKG interpretation date: 10/29/19 EKG interpretation time: 18:45 Interpretation: nsr hr [address] or t wave abnormalities qrs 80 qtc 388 Discharge Plan Discharge Patient Disposition: Home, Self-Care Clinical Impression: Acute chest wall pain Condition: Stable Prescriptions: New Robaxin-750 750 mg tablet 750 mg PO Q6H Qty: 30 RF: 0 No Action bupropion HCl [Wellbutrin SR] 150 mg tablet sustained-release 12 hr 150 mg PO BID RF: 0 gabapentin 300 mg capsule 300 mg PO BEDTIME RF: 0 levothyroxine 100 mcg capsule 100 mcg PO DAILY RF: 0 propranolol 10 mg tablet 10 mg PO BID RF: 0 montelukast [Singulair] 10 mg tablet 10 mg PO DAILY RF: 0 phentermine 37.5 mg capsule 37.5 mg PO DAILY RF: 0 celecoxib [Celebrex] 200 mg capsule 200 mg PO DAILY RF: 0 aripiprazole [Abilify] 5 mg tablet 5 mg PO DAILY Qty: 30 RF: 2 duloxetine [Cymbalta] 60 mg capsule,delayed release(DR/EC) 60 mg PO BID Qty: 60 RF: 2 oxycodone 5 mg tablet 5 mg PO Q6H PRN (Reason: pain) RF: 0 zonisamide [Zonegran] 100 mg capsule 600 mg PO DAILY Qty: 180 RF: 2 baclofen 10 mg Tablet 10 mg PO DAILY RF: 0 nitroglycerin 0.4 mg tablet, sublingual 0.4 mg sublingual PRN PRN (Reason: CHEST PAINS) RF: 0 Eliquis 5 mg tablet 5 mg PO DAILY RF: 0 fluticasone prp-sod.chl,bicarb 50 mcg- 0.9 % Kit,[place] Suspension And [place] See Rx Instructions .ROUTE .COMPLEX RF: 0 Discharge Orders: Discharge Order (Routine); Ordered 10/29/19 Ordered By: Chauncey Douglas Referrals: Emerson Baker Jr, MD [Primary Care Provider] - 1-3 days Discharge Diet: Advance as tolerated Discharge Activity: Resume usual activity Patient Instructions: Chest Pain (ED) Discharge Date/Time: 10/29/19 19:32 Coding Level of Care Code ED Associate Professor Of Mathematics for Jose Fwd Exam Comprehensive
== END 2019-10-29 19:32 | disposition home or self-care (01) ==
PROVIDERS: Emergency Provider Emergency Medicine; Family Provider Family Medicine; PCP Family Medicine
DX: R07.89 Other chest pain (principal); Z79.01 Long term (current) use of anticoagulants; F17.210 Nicotine dependence, cigarettes, uncomplicated
CPT/HCPCS: 12345; 71045; 93005; 96374; 96375; 99282; 99283; J1885

== ENCOUNTER → 2019-12-01 07:28 | Outpatient (BNVA) | payer MEDICARE, MEDICAID, SELFPAY | PROVIDERS: Family Provider Family Medicine; PCP Family Medicine; Visit Provider Nurse Practitioner | DX: F33.1 Major depressive disorder, recurrent, moderate (principal); F41.1 Generalized anxiety disorder; F43.12 Post-traumatic stress disorder, chronic | CPT/HCPCS: 99214 ==

== ENCOUNTER 2019-12-14 15:50 | Emergency (ER) | payer MEDICARE, MEDICAID, SELFPAY ==
[2019-12-14 15:54] VITALS: BP 145/76; PULSE 89; RESP 24; TEMP 36.6; O2SAT 100; BMI 54.8
--- NOTE | 2019-12-14 15:56 | XRR_ITS ---
PROCEDURE INFORMATION: Exam: XR Chest, 1 View Exam date and time: 12/14/2019 3:58 PM Age: 54 years old Clinical indication: Shortness of breath; Additional info: SOB TECHNIQUE: Imaging protocol: XR of the chest Views: 1 view. COMPARISON: MD XR chest 1V portable [id number] 10/29/2019 6:33 PM FINDINGS: Lungs: Subtle round predominant ground-glass interstitial lung disease process right lung base of suspected active pneumonitis and potential early consolidated pneumonia. Minimal discoid atelectasis bilateral lung bases. Pleural space: Unremarkable. No pleural effusion. No pneumothorax. Heart/Mediastinum: Unremarkable. No cardiomegaly. Bones/joints: Degenerative disease of visualized spine. XR/XR chest 1V portable [id number] IMPRESSION: 1. Subtle round ground-glass interstitial lung disease process right lung base of suspected active pneumonitis. 2. Minimal discoid atelectasis bilateral lung bases.
--- NOTE | 2019-12-14 15:56 | ECG_ITS ---
[facility] Test Date: 2019-12-14 Pat Name: Maria G Merritt Department: Room: Gender: Female Appeals Representative: : 1965 Requested By: Chauncey Douglas Order Number: [id number] Rah MD: Bacilio Riddle M.D. Measurements Intervals [place] Rate: 85 P: 15 HI: 152 QRS: 8 QRSD: 77 T: 24 QT: 336 QTc: 401 Interpretive Statements SINUS RHYTHM MINIMAL VOLTAGE CRITERIA FOR LVH, CONSIDER NORMAL VARIANT [MEETS CRITERIA IN ONE OF: R(aVL), S(V1), R(V5), R(V5/V6)+S(V1)] MODERATE ST DEPRESSION [0.05+ mV ST DEPRESSION] Compared to ECG 10/29/2019 18:45:48 No significant changes Electronically Signed On 12-14-2019 20:00:06 CDT by Bacilio Riddle M.D. [id number]
--- NOTE | 2019-12-14 15:58 | ED_ITS ---
HPI - SOB/Dyspnea General: Chief Complaint: Shortness of Breath/Dyspnea Stated Complaint: RESP DISTRESS Time Seen by Provider: 12/14/19 15:53 Source: patient and EMS Mode of arrival: EMS Limitations: no limitations History of Present Illness: HPI Narrative: 54-year-old female who has a history of COPD states she been having shortness of breath over the last 2 to 3 hours. States she just feels like she cannot get a deep breath in. Patient was 96% on room air. Patient did not receive a breathing treatment or steroids in route. She denies any fever. Patient in minimal distress currently. MD elicited complaint: shortness of breath Pertinent past history: COPD Onset (ago): hour(s) Severity: moderate Exacerbating factors: nothing Relieving factors: nothing Associated symptoms: Deny abdominal pain, chest pain, fever(s), nausea or vomiting Review of Systems Const: Denies: fever(s), chills, body aches or change in appetite Eyes: Denies: blurry vision or eye discomfort ENMT: Denies: throat pain or dental pain Card: Denies: chest pain Resp: Reports: dyspnea GI: Denies: abdominal pain, nausea, vomiting or diarrhea : Denies: dysuria Musc: Denies: neck pain or back pain Skin/Breast: Denies: rash Neuro: Denies: headache(s) Psych: Denies: depression Elvis/Lymph: Denies: easy bruising All/Imm: Denies: urticaria PFSH ED PFSH: Medical History Aortic valve stenosis Chronic back pain COPD (chronic obstructive pulmonary disease) Generalized anxiety disorder Hyperlipidemia Hypertension Hypothyroidism Major depressive disorder, recurrent, moderate Obesity Osteoarthritis Sleep apnea Tobacco abuse Family History Other CAD (coronary artery disease) Cancer Diabetes Hypertension Denies family history of Anesthesia complication Social History Smoking and tobacco status: current every day smoker cigarettes Years cigarettes smoked: 34 Alcohol intake: current Physical Exam Const: COMMON NORMALS: no acute distress and patient oriented x3 NUTRITIONAL APPEARANCE: obese HENMT: COMMON NORMALS: normocephalic and atraumatic HEAD & SCALP: normocephalic and atraumatic Eye: COMMON NORMALS: Equal, round and reactive pupils present and EOMs intact bilaterally PUPIL: Yes Equal, round and reactive pupils present Neck/C-Spine: COMMON NORMALS: full ROM and supple Chest: COMMONS NORMALS: normal inspection of the chest and normal palpation of entire chest wall Resp: COMMON NORMALS: normal respiratory effort, No retractions, No use of accessory muscles and clear to auscultation bilaterally AUSCULTATION: clear to auscultation bilaterally and wheezes Cardio: COMMON NORMALS: regular rate, regular rhythm and No murmurs present (Cardio) RATE: regular rate RHYTHM: regular rhythm GI: COMMON NORMALS: Normal to inspection, nondistended, normoactive bowel sounds present, Soft to palpation, non-tender and no masses PALPATION: Yes Soft to palpation Extremity: COMMON NORMALS: normal to inspection and full ROM Neuro: COMMON NORMALS: patient oriented x3, moves all extremities and no focal motor deficits Psych: COMMON NORMALS: mental status grossly normal, Normal thought process present and cooperative THOUGHT PROCESS: Normal thought process present Skin: COMMON NORMALS: no rashes or lesions noted and no wounds GENERAL SKIN EXAM: no rashes or lesions noted Course Vital Signs: Vital signs: Vital Signs Temperature 97.8 F 12/14/19 15:54 Pulse Rate 84 12/14/19 16:22 Respiratory Rate 19 H 12/14/19 16:18 Blood Pressure 145/76 12/14/19 15:54 Pulse Oximetry 99 12/14/19 16:18 MDM - SOB/Dyspnea MDM Narrative: Medical decision making narrative: Maria G presents here with dyspnea CT shows bilateral lower lobe pneumonia. Patient has no signs upon arrival to him. Offered patient mission but she states she will to try outpatient antibiotics. Will place her on steroids and doxycycline. She is to follow-up with her primary care doctor in 3 to 7 days and return if worsening. Lab Data: Labs: Lab Results 12/14/19 12/14/19 12/14/19 Range/Units 16:00 16:00 16:00 WBC 6.3 (4.0-10.0) 10^3/ uL RBC 4.07 L (4.1-5.3) 10^6/u L Hgb 11.6 (11.5-15.3) g/dL Hct 37.1 (37.0-47.0) % MCV 91.2 (81-99) fL MCH 28.5 (28.0-34.0) pg MCHC 31.3 (30.0-36.0) g/dL RDW 17.0 H (12.1-15.1) % Plt Count 272 (130-400) 10^3/c mm MPV 9.8 (7.4-10.4) fL Neut % (Auto) 62.3 % Lymph % (Auto) 21.7 % Valley % (Auto) 12.9 % Eos % (Auto) 2.1 % Baso % (Auto) 0.8 % Neut # (Auto) 3.9 (1.8-7.7) 10^3/u L Lymph # (Auto) 1.4 (0.8-4.8) 10^3/u L Valley # (Auto) 0.8 (0.2-0.9) 10^3/u L Eos # (Auto) 0.1 (0.0-0.8) 10^3/u L Baso # (Auto) 0.1 (0.0-0.1) 10^3/u L Nucleated RBC % (a uto) 0 % Nucleated RBCs # 0.0 /100WBC PT 14.00 H (10.5-13.3) SECO NDS INR 1.05 (0.8-1.2) D-Dimer 3.71 H (0-0.59) ug/mIFE U Sodium 141 (136-145) mmol/L Potassium 3.8 (3.5-5.1) mmol/L Chloride 107 (98-107) mmol/L Carbon Dioxide 25 (22-29) mmol/L Anion Gap 12.8 (5-19) BUN 10 (6-20) mg/dL Creatinine 1.0 H (0.5-0.9) mg/dL GFR Calculation 58.0 L (90-130) mL/min Glucose 124 H (65-115) mg/dL Calculated Osmolal ity 289 (285-295) mOsm/k g Calcium 10.1 (8.5-10.5) mg/dL Total Bilirubin 0.4 (0.15-1.2) mg/dL AST 32 (0-32) U/L ALT 14 (0-33) U/L Alkaline Phosphata se 260 H (35-105) IU/L NT-Pro-B Natriuret Pep 139 H (0-125) pg/mL Total Protein 7.3 (6.6-8.7) g/dL Albumin 3.4 L (3.5-5.2) g/dL Globulin 3.9 (1.3-4.6) g/dL Imaging Data^: CXR: Attestation: I personally reviewed and interpreted this imaging study as follows: My impression: RLL pneumonia vs mass CT Chest: Attestation: I personally reviewed and interpreted this imaging study as follows: Radiologist's impression: [address] [address] [address] Scan Report Signed Patient: Maria G Merritt Unit #: [id number] : 1965 Age/Sex: 54 / F ADM Date: 12/14/19 Loc: ER Room/Bed: Attending Dr: Ordering Provider/Ordering MD: Chauncey Douglas MD Date of Service: 12/14/19 Procedure(s): CT angio chest PE protcl [id number] Accession Number(s): [id number] Report Number: [id number] PROCEDURE INFORMATION: Exam: CT Angiography Chest With Contrast Exam date and time: 12/14/2019 4:51 PM Age: 54 years old Clinical indication: Shortness of breath; Patient HX: C/O SOB - ? rll mass on xray; Additional info: Lung mass/ RO pe TECHNIQUE: Imaging protocol: Computed tomographic angiography of the chest with intravenous contrast. 3D rendering: MIP and/or 3D reconstructed images were created by the technologist. Radiation optimization: All CT scans at this facility use at least one of these dose optimization techniques: automated exposure control; mA and/or kV adjustment per patient size (includes targeted exams where dose is matched to clinical indication); or iterative reconstruction. Contrast material: OMNI 350; Contrast volume: 95 ml; Contrast route: INTRAVENOUS (IV); COMPARISON: CTA Chest-Pulmonary Emb [id number] 04/30/2018 3:25 AM RADIATION DOSE METRICS: Total DLP (mGy-cm): 567.81 FINDINGS: Pulmonary arteries: No visible pulmonary embolism/pulmonary arterial thrombus this evaluation. Aorta: The thoracic aorta is nonaneurysmal. No visible intimal flap or dissection. 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 No occlusion. Lungs: Mild subsegmental consolidated alveolar airspace disease posterior basal segment of the right and left lower lobe, right slightly larger than left in volume, of either compressive atelectasis, focal edema, and/or pneumonia. Evidence of antecedent granulomatous disease. Minimal dependent atelectasis lingula. Pleural space: Small right pleural effusion and scant volume left pleural effusion. Heart: Cardiac structures and configuration without visible evidence of active pathologic process. No visible pericardial effusion. No visible significant coronary artery disease. Lymph nodes: No visible active mediastinal or hilar lymphadenopathy. Gallbladder and bile ducts: Cholelithiasis. Kidneys and ureters: Nonobstructing calyceal nephrolithiasis focus superior pole left kidney measuring 4 mm. Bones/joints: Degenerative disease and degenerative disc disease of the thoracic spine. No visible acute osseous abnormality. Soft tissues: Unremarkable. CT/CT angio chest PE protcl [id number] IMPRESSION: 1. Currently no visible evidence of pulmonary embolism/pulmonary arterial thrombus. 2. Mild subsegmental consolidated alveolar airspace disease posterior basal segment of the right and left lower lobes, right slightly larger than left in volume, of either compressive atelectasis, focal edema, and/or pneumonia. 3. Small right pleural effusion and scant volume left effusion. 4. Cholelithiasis. 5. Small calyceal nephrolithiasis foci superior pole left kidney. 6. Hemodynamically significant stenosis ostium celiac artery. EKG Data^: EKG 1: Attestation: I personally reviewed and interpreted this EKG as follows: EKG Interpretation Date: 12/14/19 EKG interpretation time: 16:13 Interpretation: nsr hr [address] or t wave abnormalities qrs 77 qtc 379 Discharge Plan Discharge Patient Disposition: Home, Self-Care Clinical Impression: Community acquired pneumonia Qualifiers: Laterality: unspecified laterality Qualified Code(s): J18.9 - Pneumonia, unspecified organism Condition: Stable Prescriptions: New prednisone 50 mg tablet 50 mg PO DAILY Qty: 5 RF: 0 doxycycline hyclate 100 mg capsule 100 mg PO BID 7 Days Qty: 14 RF: 0 No Action bupropion HCl [Wellbutrin SR] 150 mg tablet sustained-release 12 hr 150 mg PO BID RF: 0 gabapentin 300 mg capsule 300 mg PO BEDTIME RF: 0 levothyroxine 100 mcg capsule 100 mcg PO DAILY RF: 0 propranolol 10 mg tablet 10 mg PO BID RF: 0 montelukast [Singulair] 10 mg tablet 10 mg PO DAILY RF: 0 phentermine 37.5 mg capsule 37.5 mg PO DAILY RF: 0 celecoxib [Celebrex] 200 mg capsule 200 mg PO DAILY RF: 0 oxycodone 5 mg tablet 5 mg PO Q6H PRN (Reason: pain) RF: 0 aripiprazole [Abilify] 5 mg tablet 5 mg PO DAILY Qty: 30 RF: 1 paroxetine HCl [Paxil] 10 mg tablet 10 mg PO .HS Qty: 30 RF: 1 zonisamide [Zonegran] 100 mg capsule 600 mg PO DAILY Qty: 180 RF: 2 baclofen 10 mg Tablet 10 mg PO DAILY RF: 0 nitroglycerin 0.4 mg tablet, sublingual 0.4 mg sublingual PRN PRN (Reason: CHEST PAINS) RF: 0 Eliquis 5 mg tablet 5 mg PO DAILY RF: 0 fluticasone prp-sod.chl,bicarb 50 mcg- 0.9 % Kit,[place] Suspension And [place] See Rx Instructions .ROUTE .COMPLEX RF: 0 Discharge Orders: Discharge Order (Routine); Ordered 12/14/19 Ordered By: Chauncey Douglas Referrals: Emerson Baker Jr, MD [Primary Care Provider] - 4-7 days Discharge Diet: Advance as tolerated Discharge Activity: Resume usual activity Coding Level of Care Code ED Tests Superintendent for Chg Fwd Exam Comprehensive
[2019-12-14 16:10] LABS: Basophils # 0.1 10^3/uL (0.0-0.1); Basophils % 0.8 %; Eosinophils # 0.1 10^3/uL (0.0-0.8); Eosinophils % 2.1 %; Hematocrit 37.1 % (37.0-47.0); Hemoglobin 11.6 g/dL (11.5-15.3); Lymphocytes # 1.4 10^3/uL (0.8-4.8); Lymphocytes % 21.7 %; Mean Corpuscular HGB Conc 31.3 g/dL (30.0-36.0); Mean Corpuscular Hemoglobin 28.5 pg (28.0-34.0); Mean Corpuscular Volume 91.2 fL (81-99); Mean Platelet Volume 9.8 fL (7.4-10.4); Monocytes # 0.8 10^3/uL (0.2-0.9); Monocytes % 12.9 %; Neutrophils # 3.9 10^3/uL (1.8-7.7); Neutrophils % 62.3 %; Nucleated Red Blood Cells % 0 %; Platelet Count 272 10^3/cmm (130-400); Red Blood Count 4.07 10^6/uL (4.1-5.3); White Blood Count 6.3 10^3/uL (4.0-10.0)
[2019-12-14] MEDS: ipratropium-albuterol 3 mL Neb INHALATION (16:17)
[2019-12-14 16:18] VITALS: PULSE 83; RESP 19; O2SAT 99
[2019-12-14 16:22] VITALS: PULSE 84
[2019-12-14 16:30] LABS: INR 1.05 (0.8-1.2)
[2019-12-14 16:31] LABS: D Dimer 3.71 ug/mIFEU (0-0.59)
[2019-12-14 16:37] LABS: Alanine Aminotransferase 14 U/L (0-33); Albumin Level 3.4 g/dL (3.5-5.2); Alkaline Phosphatase 260 IU/L (35-105); Anion Gap 12.8 (5-19); Aspartate Amino Transferase 32 U/L (0-32); Blood Urea Nitrogen 10 mg/dL (6-20); Calcium 10.1 mg/dL (8.5-10.5); Carbon Dioxide 25 mmol/L (22-29); Chloride 107 mmol/L (98-107); Globulin 3.9 g/dL (1.3-4.6); Glucose 124 mg/dL (65-115); NT Pro B Type Natriuretic Pept 139 pg/mL (0-125); Osmolality Calculated 289 mOsm/kg (285-295); Potassium 3.8 mmol/L (3.5-5.1); Sodium 141 mmol/L (136-145); Total Bilirubin 0.4 mg/dL (0.15-1.2); Total Protein 7.3 g/dL (6.6-8.7)
--- NOTE | 2019-12-14 16:39 | CTR_ITS ---
PROCEDURE INFORMATION: Exam: CT Angiography Chest With Contrast Exam date and time: 12/14/2019 4:51 PM Age: 54 years old Clinical indication: Shortness of breath; Patient HX: C/O SOB - ? rll mass on xray; Additional info: Lung mass/ RO pe TECHNIQUE: Imaging protocol: Computed tomographic angiography of the chest with intravenous contrast. 3D rendering: MIP and/or 3D reconstructed images were created by the technologist. Radiation optimization: All CT scans at this facility use at least one of these dose optimization techniques: automated exposure control; mA and/or kV adjustment per patient size (includes targeted exams where dose is matched to clinical indication); or iterative reconstruction. Contrast material: OMNI 350; Contrast volume: 95 ml; Contrast route: INTRAVENOUS (IV); COMPARISON: CTA Chest-Pulmonary Emb [id number] 04/30/2018 3:25 AM RADIATION DOSE METRICS: Total DLP (mGy-cm): 567.81 FINDINGS: Pulmonary arteries: No visible pulmonary embolism/pulmonary arterial thrombus this evaluation. Aorta: The thoracic aorta is nonaneurysmal. No visible intimal flap or dissection. 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 No occlusion. Lungs: Mild subsegmental consolidated alveolar airspace disease posterior basal segment of the right and left lower lobe, right slightly larger than left in volume, of either compressive atelectasis, focal edema, and/or pneumonia. Evidence of antecedent granulomatous disease. Minimal dependent atelectasis lingula. Pleural space: Small right pleural effusion and scant volume left pleural effusion. Heart: Cardiac structures and configuration without visible evidence of active pathologic process. No visible pericardial effusion. No visible significant coronary artery disease. Lymph nodes: No visible active mediastinal or hilar lymphadenopathy. Gallbladder and bile ducts: Cholelithiasis. Kidneys and ureters: Nonobstructing calyceal nephrolithiasis focus superior pole left kidney measuring 4 mm. Bones/joints: Degenerative disease and degenerative disc disease of the thoracic spine. No visible acute osseous abnormality. Soft tissues: Unremarkable. CT/CT angio chest PE protcl [id number] IMPRESSION: 1. Currently no visible evidence of pulmonary embolism/pulmonary arterial thrombus. 2. Mild subsegmental consolidated alveolar airspace disease posterior basal segment of the right and left lower lobes, right slightly larger than left in volume, of either compressive atelectasis, focal edema, and/or pneumonia. 3. Small right pleural effusion and scant volume left effusion. 4. Cholelithiasis. 5. Small calyceal nephrolithiasis foci superior pole left kidney. 6. Hemodynamically significant stenosis ostium celiac artery. Radiation Dose CTDIVOL = (mGy): DLP = 567.81 (mGy-cm)
[2019-12-14] MEDS: iohexol 350 mg/mL 100 mL Btl IV (17:04)
[2019-12-14 19:04] VITALS: BP 143/65; PULSE 92; RESP 20; O2SAT 98
== END 2019-12-14 19:05 | disposition home or self-care (01) ==
PROVIDERS: Emergency Provider Emergency Medicine; PCP Family Medicine
DX: J18.9 Pneumonia, unspecified organism (principal); Z79.01 Long term (current) use of anticoagulants; J44.9 Chronic obstructive pulmonary disease, unspecified; E78.5 Hyperlipidemia, unspecified; I10 Essential (primary) hypertension; F17.210 Nicotine dependence, cigarettes, uncomplicated
CPT/HCPCS: 12345; 71045; 71275; 80053; 83880; 85025; 85378; 85610; 93005; 94640; 96374; 96375; 99283; 99284; J2930; Q9967

== ENCOUNTER → 2019-12-26 07:48 | Outpatient (BNVA) | payer MEDICARE, MEDICAID, SELFPAY | PROVIDERS: PCP Family Medicine; Visit Provider Nurse Practitioner | DX: F33.1 Major depressive disorder, recurrent, moderate (principal); F41.1 Generalized anxiety disorder | CPT/HCPCS: 99213 ==

== ENCOUNTER 2020-01-04 13:59 | Emergency (ER) | payer MEDICARE, MEDICAID, SELFPAY ==
[2020-01-04 14:00] VITALS: BMI 56.3
[2020-01-04 14:09] VITALS: BP 116/58; PULSE 76; RESP 20; TEMP 36.4; O2SAT 98
--- NOTE | 2020-01-04 15:02 | W.ED.HA ---
HPI - Headache General: Chief Complaint: Headache Stated Complaint: HEADACHE; CONFUSION Time Seen by Provider: 01/04/20 14:51 Source: patient Mode of arrival: ambulatory Limitations: altered mental status History of Present Illness: HPI Narrative: confusion and loss of time; CARMEN JORGENSEN elicited complaint: headache Onset description: gradually Associated symptoms: Reports confusion Review of Systems General: Reports: 10 or more systems reviewed and unremarkable except in HPI and below Neuro: Reports: headache(s), confusion and behavioral changes PFSH ED PFSH: Medical History Aortic valve stenosis Chronic back pain COPD (chronic obstructive pulmonary disease) Generalized anxiety disorder Hyperlipidemia Hypertension Hypothyroidism Major depressive disorder, recurrent, moderate Obesity Osteoarthritis Sleep apnea Tobacco abuse Family History Other CAD (coronary artery disease) Cancer Diabetes Hypertension Denies family history of Anesthesia complication Social History Smoking and tobacco status: current every day smoker cigarettes Years cigarettes smoked: 34 Alcohol intake: current Physical Exam Const: COMMON NORMALS: no acute distress, patient oriented x3, no limitations and alert GENERAL APPEARANCE: cooperative, comfortable and lethargic (falls asleep during assessment ) ORIENTATION/CONSCIOUSNESS: Yes awake, Yes oriented to person, Yes oriented to place, Yes oriented to time and Yes lethargic (falls asleep during assessment ) HENMT: COMMON NORMALS: normocephalic, atraumatic, external ears normal, EAC's normal, TM's normal bilaterally and Normal external nose present HEAD & SCALP: normal to inspection, normocephalic and atraumatic FACE & SINUS: normal facial exam, sinuses nontender and face symmetric NOSE: Normal external nose present, Normal nares present and No nasal discharge present EXTERNAL EAR: Yes external ears normal EXTERNAL AUDITORY CANAL: EAC's normal TYMPANIC MEMBRANE: TM's normal bilaterally MOUTH: Normal oral and palatal mucosa present, lip normal and tongue normal THROAT: posterior oropharynx normal, tonsils normal and uvula midline Eye: COMMON NORMALS: Equal, round and reactive pupils present, EOMs intact bilaterally and conjunctivae normal GENERAL EYE: appearance normal, both eyes and all related structures and normal light reflex EYELID: eyelids normal CONJUNCTIVA: Yes conjunctivae normal PUPIL: Yes Equal, round and reactive pupils present EOM: Yes EOM abnormal DIRECT OPHTHALMOSCOPY: Yes normal light reflex Neck/C-Spine: COMMON NORMALS: full ROM, no lymphadenopathy, supple, no meningeal signs, no JVD and Thyroid normal GENERAL: Yes normal visual inspection THYROID: Thyroid normal CERVICAL SPINE: Yes cervical ROM normal and Yes normal cervical lordosis Lymph: LYMPHATIC: no lymphadenopathy noted Chest: COMMONS NORMALS: normal inspection of the chest and normal palpation of entire chest wall Resp: COMMON NORMALS: normal respiratory effort, No retractions and clear to auscultation bilaterally AUSCULTATION: clear to auscultation bilaterally Cardio: COMMON NORMALS: no JVD, regular rate, regular rhythm, S1 normal heart sound present, S2 normal heart sound present, No gallops present (Cardio), No clicks present (Cardio), No murmurs present (Cardio), No rub (Cardio) and Peripheral pulses 2+ throughout RATE: regular rate RHYTHM: regular rhythm HEART SOUNDS: S1 normal heart sound present and S2 normal heart sound present PERIPHERAL PULSES: Peripheral pulses 2+ throughout GI: COMMON NORMALS: Normal to inspection, nondistended, normoactive bowel sounds present, Soft to palpation, non-tender and no masses PALPATION: Yes Soft to palpation : COMMON NORMALS: Yes no CVA tenderness and Yes normal external appearance BLADDER/KIDNEY EXAM: Yes no CVA tenderness Back/Pelvis: COMMON NORMALS: no CVA tenderness, thoracic and lumbar spine normal to inspection, no thoracic nor lumbar tenderness and thoraco-lumbar ROM normal Extremity: COMMON NORMALS: normal to inspection, full ROM, capillary refill normal, no joint enlargement, no clubbing, cyanosis or edema, no calf tenderness and no pedal edema GENERAL: Yes normal exam except as noted Neuro: COMMON NORMALS: patient oriented x3, moves all extremities, no focal motor deficits and no sensory deficits noted SENSORIUM/ORIENTATION: Yes alert, Yes oriented to person, Yes oriented to place, Yes oriented to time and Yes lethargic (falls asleep during assessment ) MENINGEAL SIGNS: Yes no meningeal signs GAIT: Yes Unable to assess gait Psych: COMMON NORMALS: mental status grossly normal, Normal thought process present, cooperative, normal affect, speech normal and activity/motor behavior normal SPEECH: Yes normal speech THOUGHT PROCESS: Normal thought process present Skin: COMMON NORMALS: no rashes or lesions noted, no wounds and turgor normal GENERAL SKIN EXAM: no rashes or lesions noted and turgor normal Course ED course: Pt presents to ER with complaints of confusion and MORALES; denies fever or other illnesses. Present x 1 - 2 days and worsening. She states she is becoming more confused and losing track of time and days. CT head ordered and labs. Reevaluation(s): Reevaluation #1: CT head in normal; pt labs pending. Pt is resting comfortably. Vitals are stable. No fever. UA also ordered. Time: 16:24 Reevaluation #2: Pt labs show elevated CRP (39) and increased LFTs; due to pt inability to give me a thorough histroy and despite denying recent tick bites, tick panel ordered. Report given to oncoming midlevel provider for continuation of care. Time: 16:50 Vital Signs: Vital signs: Vital Signs Temperature 97.6 F 01/04/20 14:09 Pulse Rate 76 01/04/20 14:09 Respiratory Rate 20 H 01/04/20 14:09 Blood Pressure 116/58 01/04/20 14:09 Pulse Oximetry 98 01/04/20 14:09 MDM - Headache Lab Data: Labs: Lab Results 01/04/20 01/04/20 Range/Units 15:30 15:30 WBC 4.7 (4.0-10.0) 10^3/ uL RBC 3.63 L (4.1-5.3) 10^6/u L Hgb 10.4 L (11.5-15.3) g/dL Hct 34.2 L (37.0-47.0) % MCV 94.2 (81-99) fL MCH 28.7 (28.0-34.0) pg MCHC 30.4 (30.0-36.0) g/dL RDW 19.4 H (12.1-15.1) % Plt Count 202 (130-400) 10^3/c mm MPV 10.4 (7.4-10.4) fL Neut % (Auto) 62.2 % Lymph % (Auto) 23.7 % [place] % (Auto) 11.0 % Eos % (Auto) 2.1 % Baso % (Auto) 0.8 % Neut # (Auto) 2.94 (1.8-7.7) 10^3/u L Lymph # (Auto) 1.1 (0.8-4.8) 10^3/u L [place] # (Auto) 0.5 (0.2-0.9) 10^3/u L Eos # (Auto) 0.1 (0.0-0.8) 10^3/u L Baso # (Auto) 0.0 (0.0-0.1) 10^3/u L Nucleated RBC % (a uto) 0 % Nucleated RBCs # 0.0 /100WBC Sodium 138 (136-145) mmol/L Potassium 3.6 (3.5-5.1) mmol/L Chloride 110 H (98-107) mmol/L Carbon Dioxide 21 L (22-29) mmol/L Anion Gap 10.6 (5-19) BUN 10 (6-20) mg/dL Creatinine 1.0 H (0.5-0.9) mg/dL GFR Calculation 58.0 L (90-130) mL/min Glucose 91 (65-115) mg/dL Calculated Osmolal ity 282 L (285-295) mOsm/k g Calcium 8.5 (8.5-10.5) mg/dL Total Bilirubin 0.6 (0.15-1.2) mg/dL AST 22 (0-32) U/L ALT 11 (0-33) U/L Alkaline Phosphata se 252 H (35-105) IU/L C-Reactive Protein 39.3 H (0.0-4.9) mg/L Total Protein 6.8 (6.6-8.7) g/dL Globulin 4.0 (1.3-4.6) g/dL Imaging Data^: CT Head: Radiologist's impression: [address] [address] [address] Scan Report Signed Patient: Maria G Merritt Unit #: [id number] : 1965 Age/Sex: 54 / F ADM Date: 01/04/20 Loc: ER Room/Bed: Attending Dr: Ordering Provider/Ordering MD: Ani Polanco NP Date of Service: 01/04/20 Procedure(s): CT head wo con* [id number] Accession Number(s): [id number] Report Number: [id number] PROCEDURE INFORMATION: Exam: CT Head Without Contrast Exam date and time: 01/04/2020 3:05 PM Age: 54 years old Clinical indication: Pain; Headache not specified; Patient HX: C/O global MORALES and confusion; Additional info: Confusion and MORALES TECHNIQUE: Imaging protocol: Computed tomography of the head without contrast. Sagittal and coronal reformatted images were created and reviewed. Radiation optimization: All CT scans at this facility use at least one of these dose optimization techniques: automated exposure control; mA and/or kV adjustment per patient size (includes targeted exams where dose is matched to clinical indication); or iterative reconstruction. COMPARISON: CT head wo con* [id number] 10/07/2019 3:37 PM RADIATION DOSE METRICS: Total DLP (mGy-cm): 863.5 FINDINGS: Brain: No acute intracranial hemorrhage. No acute infarct. No intra-axial or extra-axial masses. Correa-white matter differentiation is preserved. No cerebral edema. No extra-axial fluid collections. No midline shift. The cerebellar tonsils extend just below the level of the foramen magnum. Findings are stable. Stable mild cerebral volume loss. Ventricles: No hydrocephalus. Bones/joints: No acute fracture. Sinuses: Visualized paranasal sinuses are clear. Mastoid air cells: Small amount of fluid in the right and left mastoid air cells. Orbits: No acute abnormality in the visualized orbits. Vasculature: Stable atherosclerotic calcifications in the visualized arteries. Dental: The patient is edentulous. Soft tissues: No acute abnormality of the extracranial soft tissues. CT/CT head wo con* [id number] IMPRESSION: 1. No acute abnormality of the brain. 2. Low-lying cerebellar tonsils. Findings are stable. 3. Stable mild cerebral volume loss. 4. Small amount of fluid in the right and left mastoid air cells. 5. Incidental/nonacute findings are listed in the report. Radiation Dose CTDIVOL = (mGy): DLP = 863.5 (mGy-cm) Dictated By: Alana Capellan MD Signed By: Alana Capellan MD Signed Date/Time: 01/04/201533 DD/ 31 Discharge Plan Discharge Prescriptions: No Action gabapentin 300 mg capsule 300 mg PO BEDTIME RF: 0 levothyroxine 100 mcg capsule 100 mcg PO DAILY RF: 0 propranolol 10 mg tablet 10 mg PO BID RF: 0 montelukast [Singulair] 10 mg tablet 10 mg PO DAILY RF: 0 phentermine 37.5 mg capsule 37.5 mg PO DAILY RF: 0 celecoxib [Celebrex] 200 mg capsule 200 mg PO DAILY RF: 0 oxycodone 5 mg tablet 5 mg PO Q6H PRN (Reason: pain) RF: 0 aripiprazole [Abilify] 5 mg tablet 5 mg PO DAILY Qty: 30 RF: 1 paroxetine HCl [Paxil] 10 mg tablet 10 mg PO .HS Qty: 30 RF: 1 zonisamide [Zonegran] 100 mg capsule 600 mg PO DAILY Qty: 180 RF: 2 baclofen 10 mg Tablet 10 mg PO DAILY RF: 0 nitroglycerin 0.4 mg tablet, sublingual 0.4 mg sublingual PRN PRN (Reason: CHEST PAINS) RF: 0 Eliquis 5 mg tablet 5 mg PO DAILY RF: 0 fluticasone prp-sod.chl,bicarb 50 mcg- 0.9 % Kit,[place] Suspension And [place] See Rx Instructions .ROUTE .COMPLEX RF: 0 prednisone 50 mg tablet 50 mg PO DAILY Qty: 5 RF: 0 Coding Level of Care Code ED Director Emergency Department for Sueg Fwd Exam Comprehensive
[2020-01-04 15:51] LABS: Basophils % 0.8 %; Eosinophils # 0.1 10^3/uL (0.0-0.8); Eosinophils % 2.1 %; Hematocrit 34.2 % (37.0-47.0); Hemoglobin 10.4 g/dL (11.5-15.3); Lymphocytes # 1.1 10^3/uL (0.8-4.8); Lymphocytes % 23.7 %; Mean Corpuscular HGB Conc 30.4 g/dL (30.0-36.0); Mean Corpuscular Hemoglobin 28.7 pg (28.0-34.0); Mean Corpuscular Volume 94.2 fL (81-99); Mean Platelet Volume 10.4 fL (7.4-10.4); Monocytes # 0.5 10^3/uL (0.2-0.9); Neutrophils # 2.94 10^3/uL (1.8-7.7); Neutrophils % 62.2 %; Nucleated Red Blood Cells % 0 %; Platelet Count 202 10^3/cmm (130-400); Red Blood Count 3.63 10^6/uL (4.1-5.3); Red Cell Distribution Width 19.4 % (12.1-15.1); White Blood Count 4.7 10^3/uL (4.0-10.0)
[2020-01-04 16:26] LABS: Alanine Aminotransferase 11 U/L (0-33); Albumin Level 2.8 g/dL (3.5-5.2); Alkaline Phosphatase 252 IU/L (35-105); Anion Gap 10.6 (5-19); Aspartate Amino Transferase 22 U/L (0-32); Blood Urea Nitrogen 10 mg/dL (6-20); C Reactive Protein 39.3 mg/L (0.0-4.9); Calcium 8.5 mg/dL (8.5-10.5); Carbon Dioxide 21 mmol/L (22-29); Chloride 110 mmol/L (98-107); Glucose 91 mg/dL (65-115); Osmolality Calculated 282 mOsm/kg (285-295); Potassium 3.6 mmol/L (3.5-5.1); Sodium 138 mmol/L (136-145); Total Bilirubin 0.6 mg/dL (0.15-1.2); Total Protein 6.8 g/dL (6.6-8.7)
--- NOTE | 2020-01-04 16:46 | XRR_ITS ---
PROCEDURE INFORMATION: Exam: XR Chest, 1 View Exam date and time: 01/04/2020 5:07 PM Age: 54 years old Clinical indication: Shortness of breath; Additional info: Abg TECHNIQUE: Imaging protocol: XR of the chest Views: 1 view. COMPARISON: CR (CHEST, ) 12/14/2019 4:24 PM FINDINGS: Tubes, catheters and devices: Right sided neck base surgical clips. Potential previous thyroidectomy. Lungs: Minimal discoid atelectasis right mid lung. Resolution of the previously noted right lower lobe ground-glass interstitial lung disease process. Left lung clear. Pleural space: Unremarkable. No pleural effusion. No pneumothorax. Heart/Mediastinum: Cardiac structures in configuration stable. Bones/joints: Unremarkable. XR/XR chest 1V portable [id number] IMPRESSION: Minimal discoid atelectasis right mid lung.
[2020-01-04 17:42] LABS: ABG PCO2 36.8 mmHg (35-45); ABG PH Result 7.38 (7.35-7.45); Alveolar-Arterial Oxygen Gradi 27.2 mmHg (5-10); Arterial Blood Gas Hematocrit 49.1 % (37-47); Base Excess ABG -2.9 mmol/L (-2.0-2.0); Blood Gas Allen Test Pos; Blood Gas Operator Identificat glc; Blood Gas Sample Site Radial, left; Blood Gas Sample Type Arterial; Carboxyhemoglobin 1.5 %THgb (0.4-20.1); HCO3 ABG 21.7 mmol/L (22-26); HGB O2 Sat 93.5 % (95-100); Ionized Calcium Level - ABG 1.3 mmol/L (1.1-1.4); Methemoglobin 0.6 % (0.4-1.5); Oxygen Device ROOM AIR; Oxygen Saturation ABG 95.5; PO2 ABG 75.9 mmHg (80.0-100.0); Potassium Level - ABG 3.6 mmol/L (3.5-5.0)
[2020-01-04 18:02] LABS: Lactate (Lactic Acid level) 1.3 mmol/L (0.5-2.2)
[2020-01-04 18:09] LABS: Add Urine Microscopic? YES; Bilirubin Urine Neg (NEGATIVE); Blood Urine 3+ (Negative); Glucose Urine UA Norm (Normal); Ketones Urine Negative (Negative); Leukocyte Esterase Urine Negative (Negative); Nitrate Urine Positive (Negative); Protein Urine Neg (Negative); Urine Appearance Hazy (CLEAR); Urine Color Straw (Yellow); Urobilinogen Urine Norm (Negative); pH Urine 7 (5-7)
[2020-01-04 18:10] LABS: Add Urine Culture? Yes; Bacteria Urine 2+; RBC Urine 15-25 /hpf (0-2); WBC Urine 0-4 /hpf (0-5)
[2020-01-04] MEDS: cefTRIAXone 1,000 mg SDV 1000 MG IM (18:21)
[2020-01-04 19:02] VITALS: BP 138/71; PULSE 74; RESP 17; O2SAT 96
== END 2020-01-04 19:03 | disposition home or self-care (01) ==
PROVIDERS: Nurse Practitioner Family; Emergency Provider Physician Assistant; PCP Family Medicine
DX: R51 Headache (principal); Z79.01 Long term (current) use of anticoagulants; J44.9 Chronic obstructive pulmonary disease, unspecified; E78.5 Hyperlipidemia, unspecified; I10 Essential (primary) hypertension; F17.210 Nicotine dependence, cigarettes, uncomplicated; Z79.899 Other long term (current) drug therapy
CPT/HCPCS: 12345; 36415; 36600; 70450; 71045; 80051; 80053; 81001; 81003; 82810; 83605; 83986; 85025; 86140; 87077; 87086; 87186; 96372; 99282; 99283; J0696

== ENCOUNTER 2020-01-09 19:09 | Emergency (ER) | payer MEDICARE, MEDICAID, SELFPAY ==
--- NOTE | 2020-01-09 19:10 | ECG_ITS ---
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 Measurements Intervals [place] Rate: 81 P: 42 ND: 158 QRS: 26 QRSD: 89 T: 38 QT: 356 QTc: 414 Interpretive Statements SINUS RHYTHM Compared to ECG 12/14/2019 16:13:10 ST (T wave) deviation no longer present Electronically Signed On 01-10-2020 6:54:35 CDT by Suzie Hassan M.D. [id number]
--- NOTE | 2020-01-09 19:10 | XRR_ITS ---
PROCEDURE INFORMATION: Exam: XR Chest, 1 View Exam date and time: 01/09/2020 7:58 PM Age: 54 years old Clinical indication: Dyspnea; Additional info: SOB TECHNIQUE: Imaging protocol: XR of the chest Views: 1 view. COMPARISON: CR (CHEST, ) 01/04/2020 4:56 PM FINDINGS: Tubes, catheters and devices: Surgical clips in the neck. Lungs: Linear atelectasis or scarring in the right mid lung and both lung bases. Ground-glass opacity in the right lung base. Pleural space: Small bilateral pleural effusions. No pneumothorax. Heart/Mediastinum: Unremarkable. No cardiomegaly. Bones/joints: Unremarkable. XR/XR chest 1V portable [id number] IMPRESSION: 1. Ground-glass opacity in the right lung base could represent pneumonia or aspiration. 2. Small pleural effusions.
[2020-01-09 19:11] VITALS: BP 155/77; PULSE 87; RESP 20; TEMP 36.6; O2SAT 100
[2020-01-09 19:22] LABS: Basophils # 0.1 10^3/uL (0.0-0.1); Basophils % 0.8 %; Eosinophils # 0.2 10^3/uL (0.0-0.8); Eosinophils % 2.7 %; Hematocrit 32.9 % (37.0-47.0); Hemoglobin 10.3 g/dL (11.5-15.3); Lymphocytes # 1.4 10^3/uL (0.8-4.8); Lymphocytes % 23.9 %; Mean Corpuscular HGB Conc 31.3 g/dL (30.0-36.0); Mean Corpuscular Hemoglobin 29.1 pg (28.0-34.0); Mean Corpuscular Volume 92.9 fL (81-99); Mean Platelet Volume 10.2 fL (7.4-10.4); Monocytes # 0.9 10^3/uL (0.2-0.9); Monocytes % 14.8 %; Neutrophils # 3.41 10^3/uL (1.8-7.7); Neutrophils % 57.6 %; Nucleated Red Blood Cells % 0 %; Platelet Count 267 10^3/cmm (130-400); Red Blood Count 3.54 10^6/uL (4.1-5.3); Red Cell Distribution Width 19.4 % (12.1-15.1); White Blood Count 5.9 10^3/uL (4.0-10.0)
--- NOTE | 2020-01-09 19:22 | ED_ITS ---
HPI - SOB/Dyspnea General: Chief Complaint: Shortness of Breath/Dyspnea Stated Complaint: sob x2 weeks Time Seen by Provider: 01/09/20 19:10 Source: patient and EMS Mode of arrival: EMS Limitations: no limitations History of Present Illness: HPI Narrative: 54-year-old female who has a history of COPD and is a smoker and has a history of morbid obesity. Patient states she has had shortness of breath over the last 2 weeks. Patient states she had some wheezing today and increase shortness of breath called EMS. Patient's currently 98% on room air. She denies any chest pain. She denies any fevers. MD elicited complaint: shortness of breath Pertinent past history: COPD Onset (ago): week(s) Exacerbating factors: nothing Relieving factors: nothing Associated symptoms: Deny abdominal pain, chest pain, fever(s), nausea or vomiting Review of Systems Const: Denies: fever(s), chills, body aches or change in appetite Eyes: Denies: blurry vision or eye discomfort ENMT: Denies: throat pain or dental pain Card: Denies: chest pain Resp: Reports: dyspnea GI: Denies: abdominal pain, nausea, vomiting or diarrhea : Denies: dysuria Musc: Denies: neck pain or back pain Skin/Breast: Denies: rash Neuro: Denies: headache(s) Psych: Denies: depression Elvis/Lymph: Denies: easy bruising All/Imm: Denies: urticaria PFSH ED PFSH: Medical History Aortic valve stenosis Chronic back pain COPD (chronic obstructive pulmonary disease) Generalized anxiety disorder Hyperlipidemia Hypertension Hypothyroidism Major depressive disorder, recurrent, moderate Obesity Osteoarthritis Sleep apnea Tobacco abuse Family History Other CAD (coronary artery disease) Cancer Diabetes Hypertension Denies family history of Anesthesia complication Social History Smoking and tobacco status: current every day smoker cigarettes Years cigarettes smoked: 34 Alcohol intake: current Physical Exam Const: COMMON NORMALS: no acute distress, patient oriented x3 and healthy appearing OTHER: obese HENMT: COMMON NORMALS: normocephalic and atraumatic HEAD & SCALP: normocephalic and atraumatic Eye: COMMON NORMALS: Equal, round and reactive pupils present and EOMs intact bilaterally PUPIL: Yes Equal, round and reactive pupils present Neck/C-Spine: COMMON NORMALS: full ROM and supple Chest: COMMONS NORMALS: normal inspection of the chest and normal palpation of entire chest wall Resp: COMMON NORMALS: normal respiratory effort, No retractions and No use of accessory muscles AUSCULTATION: wheezes Cardio: COMMON NORMALS: regular rate, regular rhythm and No murmurs present (Cardio) RATE: regular rate RHYTHM: regular rhythm GI: COMMON NORMALS: Normal to inspection, nondistended, normoactive bowel sounds present, Soft to palpation, non-tender and no masses PALPATION: Yes Soft to palpation Extremity: COMMON NORMALS: normal to inspection and full ROM Neuro: COMMON NORMALS: patient oriented x3, moves all extremities and no focal motor deficits Psych: COMMON NORMALS: mental status grossly normal, Normal thought process present and cooperative THOUGHT PROCESS: Normal thought process present Skin: COMMON NORMALS: no rashes or lesions noted and no wounds GENERAL SKIN EXAM: no rashes or lesions noted Course Vital Signs: Vital signs: Vital Signs Temperature 97.9 F 01/09/20 19:11 Pulse Rate 80 01/09/20 20:18 Respiratory Rate 20 H 01/09/20 20:18 Blood Pressure 155/87 01/09/20 21:02 Pulse Oximetry 96 01/09/20 20:18 MDM - SOB/Dyspnea MDM Narrative: Medical decision making narrative: Maria G presents here with allergic rhinitis type symptoms along with COPD. We will place her on a Medrol Dosepak and she is to continue to her breathing treatments. X-ray shows no pneumonia and she is well-appearing here. She is to follow-up with primary care doctor in 3 to 5 days and return if worsening. Lab Data: Labs: Lab Results 01/09/20 01/09/20 Range/Units 19:20 19:20 WBC 5.9 (4.0-10.0) 10^3/ uL RBC 3.54 L (4.1-5.3) 10^6/u L Hgb 10.3 L (11.5-15.3) g/dL Hct 32.9 L (37.0-47.0) % MCV 92.9 (81-99) fL MCH 29.1 (28.0-34.0) pg MCHC 31.3 (30.0-36.0) g/dL RDW 19.4 H (12.1-15.1) % Plt Count 267 (130-400) 10^3/c mm MPV 10.2 (7.4-10.4) fL Neut % (Auto) 57.6 % Lymph % (Auto) 23.9 % [place] % (Auto) 14.8 % Eos % (Auto) 2.7 % Baso % (Auto) 0.8 % Neut # (Auto) 3.41 (1.8-7.7) 10^3/u L Lymph # (Auto) 1.4 (0.8-4.8) 10^3/u L [place] # (Auto) 0.9 (0.2-0.9) 10^3/u L Eos # (Auto) 0.2 (0.0-0.8) 10^3/u L Baso # (Auto) 0.1 (0.0-0.1) 10^3/u L Nucleated RBC % (a uto) 0 % Nucleated RBCs # 0.0 /100WBC Sodium 138 (136-145) mmol/L Potassium 3.7 (3.5-5.1) mmol/L Chloride 110 H (98-107) mmol/L Carbon Dioxide 20 L (22-29) mmol/L Anion Gap 11.7 (5-19) BUN 10 (6-20) mg/dL Creatinine 1.1 H (0.5-0.9) mg/dL GFR Calculation 52.0 L (90-130) mL/min Glucose 101 (65-115) mg/dL Calculated Osmolal ity 282 L (285-295) mOsm/k g Calcium 9.0 (8.5-10.5) mg/dL Total Bilirubin 0.2 (0.15-1.2) mg/dL AST 24 (0-32) U/L ALT 12 (0-33) U/L Alkaline Phosphata se 257 H (35-105) IU/L NT-Pro-B Natriuret Pep 240 H (0-125) pg/mL Total Protein 6.4 L (6.6-8.7) g/dL Albumin 2.9 L (3.5-5.2) g/dL Globulin 3.5 (1.3-4.6) g/dL Imaging Data^: CXR: Attestation: I personally reviewed and interpreted this imaging study as follows: My impression: no acute abnormality EKG Data^: EKG 1: Attestation: I personally reviewed and interpreted this EKG as follows: EKG Interpretation Date: 01/09/20 EKG interpretation time: 19:18 Interpretation: Normal sinus rhythm heart rate [address] or T wave a bnormalities QRS 89 QTc 393 Discharge Plan Discharge Patient Disposition: Home Clinical Impression: COPD (chronic obstructive pulmonary disease) Allergic rhinitis Qualifiers: Allergic rhinitis trigger: unspecified Allergic rhinitis seasonality: unspecified Qualified Code(s): J30.9 - Allergic rhinitis, unspecified Condition: Stable Prescriptions: New Medrol (Denzel) 4 mg tablets,dose pack See Rx Instructions .ROUTE .COMPLEX Qty: 21 RF: 0 No Action gabapentin 300 mg capsule 300 mg PO BEDTIME RF: 0 levothyroxine 100 mcg capsule 100 mcg PO DAILY RF: 0 montelukast [Singulair] 10 mg tablet 10 mg PO DAILY RF: 0 phentermine 37.5 mg capsule 37.5 mg PO DAILY RF: 0 celecoxib [Celebrex] 200 mg capsule 200 mg PO DAILY RF: 0 oxycodone 5 mg tablet 5 mg PO Q6H PRN (Reason: pain) RF: 0 aripiprazole [Abilify] 5 mg tablet 5 mg PO DAILY Qty: 30 RF: 1 paroxetine HCl [Paxil] 10 mg tablet 10 mg PO .HS Qty: 30 RF: 1 zonisamide [Zonegran] 100 mg capsule 600 mg PO DAILY Qty: 180 RF: 2 propranolol 10 mg tablet 10 mg PO BID Qty: 60 RF: 2 baclofen 10 mg Tablet 10 mg PO DAILY RF: 0 nitroglycerin 0.4 mg tablet, sublingual 0.4 mg sublingual PRN PRN (Reason: CHEST PAINS) RF: 0 Eliquis 5 mg tablet 5 mg PO DAILY RF: 0 fluticasone prp-sod.chl,bicarb 50 mcg- 0.9 % Kit,[place] Suspension And [place] See Rx Instructions .ROUTE .COMPLEX RF: 0 prednisone 50 mg tablet 50 mg PO DAILY Qty: 5 RF: 0 Bactrim DS 800-160 mg tablet 1 tab PO BID 7 Days Qty: 14 RF: 0 Discharge Orders: Discharge Order (Routine); Ordered 01/09/20 Ordered By: Chauncey Douglas Referrals: Emerson Baker Jr, MD [Primary Care Provider] - 1-3 days Discharge Diet: Advance as tolerated Discharge Activity: Resume usual activity Patient Instructions: Allergic Rhinitis (ED) Discharge Date/Time: 01/09/20 21:03 Coding Level of Care Code ED 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
[2020-01-09 19:40] VITALS: PULSE 79; RESP 12; O2SAT 99
[2020-01-09] MEDS: ipratropium-albuterol 3 mL Neb INHALATION (19:42)
[2020-01-09 19:52] LABS: Alanine Aminotransferase 12 U/L (0-33); Albumin Level 2.9 g/dL (3.5-5.2); Alkaline Phosphatase 257 IU/L (35-105); Anion Gap 11.7 (5-19); Aspartate Amino Transferase 24 U/L (0-32); Blood Urea Nitrogen 10 mg/dL (6-20); Carbon Dioxide 20 mmol/L (22-29); Chloride 110 mmol/L (98-107); Creatinine Clr Calc Pharmacy 95.4975; Globulin 3.5 g/dL (1.3-4.6); Glucose 101 mg/dL (65-115); NT Pro B Type Natriuretic Pept 240 pg/mL (0-125); Osmolality Calculated 282 mOsm/kg (285-295); Potassium 3.7 mmol/L (3.5-5.1); Sodium 138 mmol/L (136-145); Total Bilirubin 0.2 mg/dL (0.15-1.2); Total Protein 6.4 g/dL (6.6-8.7)
[2020-01-09 20:18] VITALS: BP 133/62; PULSE 80; RESP 20; O2SAT 96
[2020-01-09] MEDS: ondansetron 2 mg/ML SDV 2 mL 4 MG IVP (20:48)
[2020-01-09 21:02] VITALS: BP 155/87
== END 2020-01-09 21:03 | disposition home or self-care (01) ==
PROVIDERS: Emergency Provider Emergency Medicine; PCP Family Medicine
DX: J44.9 Chronic obstructive pulmonary disease, unspecified (principal); J30.9 Allergic rhinitis, unspecified; Z79.01 Long term (current) use of anticoagulants; E78.5 Hyperlipidemia, unspecified; I10 Essential (primary) hypertension; F17.210 Nicotine dependence, cigarettes, uncomplicated
CPT/HCPCS: 12345; 71045; 80053; 83880; 85025; 93005; 94640; 99283; 99284; J2405; J2930

== ENCOUNTER → 2020-01-15 10:58 | Outpatient (BNVA) | payer MEDICARE, MEDICAID, SELFPAY | PROVIDERS: PCP Family Medicine; Visit Provider Specialist | DX: G43.711 Chronic migraine without aura, intractable, with status migrainosus (principal); F33.1 Major depressive disorder, recurrent, moderate | CPT/HCPCS: 64615; J0585 ==

== ENCOUNTER 2020-01-21 13:11 | Outpatient (CLI) | payer MEDICARE, MEDICAID, SELFPAY ==
--- NOTE | 2020-01-21 13:21 | MM_ITS ---
WS: [id number] BILATERAL DIGITAL SCREENING MAMMOGRAPHY WITH CAD CLINICAL INFORMATION: SCREENING HISTORY: Screening mammogram. No current complaints. COMPARISON: December 13, 2017 TECHNIQUE: Bilateral CC and MLO views. FINDINGS: Scattered fibroglandular densities bilaterally. No suspicious focal mass, asymmetry, calcifications, or architectural distortion. No evidence of malignancy. A few punctate calcifications right breast. MM/[place] [id number] IMPRESSION: BI-RADS: 2-Benign FOLLOW UP: 1 Year Follow-up Recommend return to annual screening mammography.
== END 2020-01-21 13:12 | disposition home or self-care (01) ==
LOC: RADSHAW 13:17
PROVIDERS: PCP Family Medicine; Visit Provider Nurse Practitioner Family
DX: Z12.31 Encounter for screening mammogram for malignant neoplasm of breast (principal)
CPT/HCPCS: 77067

== ENCOUNTER 2020-01-21 17:08 | Emergency (ER) | payer MEDICARE, MEDICAID, SELFPAY ==
[2020-01-21 17:09] VITALS: BP 140/69; PULSE 98; RESP 20; TEMP 36.6; O2SAT 96; BMI 56.3
--- NOTE | 2020-01-21 17:11 | ED_ITS ---
HPI - Extremity Problem General: Chief complaint: Extremity Problem,Nontraumatic Stated complaint: LEG PAIN WEAKNESS Time Seen by Provider: 01/21/20 17:10 Source: patient Mode of arrival: ambulatory Limitations: no limitations History of Present Illness: HPI Narrative: 54-year-old female comes in today with complaints of swelling to bilateral lower extremities. Patient reports that she had to be out of her apartment today due to them sprain insecticides. Patient feels that she may have overdone it . Patient has tree trunk lower extremities. Patient does report that this is chronic although her swelling is a little bit worse today because she has been up moving around more, and has not been able to be at home with her extremities up. Patient states she is unable to take diuretics due to them lowering her blood pressure too much. When questioning patient she states that all the women in her family had large legs, on her mom's side. Complaint: extremity swelling Review of Systems General: Reports: 10 or more systems reviewed and unremarkable except in HPI and below Musc: Reports: extremity swelling [facility] ED PFSH: Medical History (Updated 01/21/20 @ 18:34 by RUDI Talamantes) Aortic valve stenosis Chronic back pain COPD (chronic obstructive pulmonary disease) Generalized anxiety disorder Hyperlipidemia Hypertension Hypothyroidism Major depressive disorder, recurrent, moderate Obesity Osteoarthritis Sleep apnea Tobacco abuse Family History Other CAD (coronary artery disease) Cancer Diabetes Hypertension Denies family history of Anesthesia complication Social History Smoking and tobacco status: current every day smoker cigarettes Years cigarettes smoked: 34 Alcohol intake: current Physical Exam Const: COMMON NORMALS: no acute distress and patient oriented x3 GENERAL APPEARANCE: cooperative HENMT: COMMON NORMALS: normocephalic, TM's normal bilaterally and Normal external nose present HEAD & SCALP: normal to inspection and normocephalic NOSE: Normal external nose present TYMPANIC MEMBRANE: TM's normal bilaterally MOUTH: Normal oral and palatal mucosa present THROAT: posterior oropharynx normal Eye: GENERAL EYE: appearance normal, both eyes and all related structures Neck/C-Spine: COMMON NORMALS: full ROM Lymph: LYMPHATIC: no lymphadenopathy noted Chest: COMMONS NORMALS: normal inspection of the chest Resp: COMMON NORMALS: normal respiratory effort EFFORT & INSPECTION: Yes able to speak in complete sentences Cardio: COMMON NORMALS: regular rate and regular rhythm RATE: regular rate RHYTHM: regular rhythm GI: COMMON NORMALS: non-tender : COMMON NORMALS: Yes no CVA tenderness BLADDER/KIDNEY EXAM: Yes no CVA tenderness Back/Pelvis: COMMON NORMALS: no CVA tenderness and thoracic and lumbar spine normal to inspection Extremity: NARRATIVE EXTREMITY EXAM: Bilateral lower extremities are edematous and tree trunk in appearance. Patient has some mild erythema with weeping to bilateral extremities. Neuro: COMMON NORMALS: patient oriented x3 and moves all extremities Psych: COMMON NORMALS: mental status grossly normal and cooperative Skin: COMMON NORMALS: no rashes or lesions noted GENERAL SKIN EXAM: no rashes or lesions noted Course Vital Signs: Vital signs: Vital Signs Temperature 97.8 F 01/21/20 17:09 Pulse Rate 98 01/21/20 17:09 Respiratory Rate 20 H 01/21/20 17:09 Blood Pressure 140/69 01/21/20 17:09 Pulse Oximetry 96 01/21/20 17:09 MDM - Extremity (Nontraumatic) MDM Narrative: Medical decision making narrative: Patient comes in today for complaints of bilateral lower extremity swelling with redness. Patient states that she had to be out of her house today and had her feet down more than usual and has noted more swelling since then. Patient appears she may have some hereditary lymphedema. Exam notes some redness and swelling to bilateral lower extremities with some weeping due to the swelling. Pulses are intact and prompt capillary refill is noted. Differential diagnosis includes but not limited to CHF, ACS, lymphedema, peripheral edema due to venous insufficiency, cellulitis. Patient does routinely take Eliquis for prevention of DVT. Laboratory values noted a mild anemia at 10 and 33. The mild renal insufficiency with a creatinine 1.3. Troponin was negative. EKG was normal sinus rhythm. Chest x- ray was normal. Reviewed exam with patient with recommendations for treatment and follow-up. We will go ahead and place patient on some cephalexin for possible cellulitis. Although I do believe that this is probably just some stasis dermatitis due to patient's peripheral edema. Recommended further treatment and follow-up as needed. Patient reported understanding. Lab Data: Labs: Lab Results 01/21/20 01/21/20 01/21/20 Range/Units 17:40 17:40 17:40 WBC 8.9 (4.0-10.0) 10^3/ uL RBC 3.59 L (4.1-5.3) 10^6/u L Hgb 10.3 L (11.5-15.3) g/dL Hct 33.8 L (37.0-47.0) % MCV 94.2 (81-99) fL MCH 28.7 (28.0-34.0) pg MCHC 30.5 (30.0-36.0) g/dL RDW 18.6 H (12.1-15.1) % Plt Count 228 (130-400) 10^3/c mm MPV 10.1 (7.4-10.4) fL Neut % (Auto) 64.3 % Lymph % (Auto) 19.7 % [place] % (Auto) 13.5 % Eos % (Auto) 1.3 % Baso % (Auto) 0.9 % Neut # (Auto) 5.72 (1.8-7.7) 10^3/u L Lymph # (Auto) 1.8 (0.8-4.8) 10^3/u L [place] # (Auto) 1.2 H (0.2-0.9) 10^3/u L Eos # (Auto) 0.1 (0.0-0.8) 10^3/u L Baso # (Auto) 0.1 (0.0-0.1) 10^3/u L Nucleated RBC % (a uto) 0 % Nucleated RBCs # 0.0 /100WBC Sodium 137 (136-145) mmol/L Potassium 3.1 L (3.5-5.1) mmol/L Chloride 106 (98-107) mmol/L Carbon Dioxide 22 (22-29) mmol/L Anion Gap 12.1 (5-19) BUN 15 (6-20) mg/dL Creatinine 1.3 H (0.5-0.9) mg/dL GFR Calculation 42.8 L (90-130) mL/min Glucose 92 (65-115) mg/dL Calculated Osmolal ity 280 L (285-295) mOsm/k g Calcium 9.1 (8.5-10.5) mg/dL Total Bilirubin 0.6 (0.15-1.2) mg/dL AST 30 (0-32) U/L ALT 16 (0-33) U/L Alkaline Phosphata se 233 H (35-105) IU/L Troponin T Baselin e 9 (0-10) ng/L NT-Pro-B Natriuret Pep 176 H (0-125) pg/mL Total Protein 5.8 L (6.6-8.7) g/dL Albumin 3.1 L (3.5-5.2) g/dL Globulin 2.7 (1.3-4.6) g/dL EKG Data^: EKG 1: Attestation: I personally reviewed and interpreted this EKG as follows: (1750, sinus rhythm, regular rate at 90 bpm, no ectopy, no ST elevation.) Discharge Plan Discharge Patient Disposition: Home Clinical Impression: Edema, peripheral Cellulitis Qualifiers: Site of cellulitis: extremity Site of cellulitis of extremity: lower extremity Laterality: unspecified laterality Qualified Code(s): L03.119 - Cellulitis of unspecified part of limb Condition: Stable Prescriptions: New cephalexin 500 mg tablet 500 mg PO TID 10 Days Qty: 30 RF: 0 No Action gabapentin 300 mg capsule 300 mg PO BEDTIME RF: 0 levothyroxine 100 mcg capsule 100 mcg PO DAILY RF: 0 montelukast [Singulair] 10 mg tablet 10 mg PO DAILY RF: 0 phentermine 37.5 mg capsule 37.5 mg PO DAILY RF: 0 celecoxib [Celebrex] 200 mg capsule 200 mg PO DAILY RF: 0 zonisamide [Zonegran] 100 mg capsule 600 mg PO DAILY Qty: 180 RF: 2 propranolol 10 mg tablet 10 mg PO BID Qty: 60 RF: 2 aripiprazole [Abilify] 5 mg tablet 5 mg PO DAILY Qty: 90 RF: 0 baclofen 10 mg Tablet 10 mg PO DAILY RF: 0 nitroglycerin 0.4 mg tablet, sublingual 0.4 mg sublingual PRN PRN (Reason: CHEST PAINS) RF: 0 Eliquis 5 mg tablet 5 mg PO DAILY RF: 0 fluticasone prp-sod.chl,bicarb 50 mcg- 0.9 % Kit,Purcell Suspension And Purcell See Rx Instructions .ROUTE .COMPLEX RF: 0 prednisone 50 mg tablet 50 mg PO DAILY Qty: 5 RF: 0 bupropion HCl 150 mg tablet sustained-release 12 hr 150 mg PO BID RF: 0 oxycodone-acetaminophen 5-325 mg Tablet 1 tab PO Q4H PRN (Reason: Pain) RF: 0 omeprazole 20 mg capsule,delayed release(DR/EC) 20 mg PO BID RF: 0 duloxetine 60 mg capsule,delayed release(DR/EC) 60 mg PO BID RF: 0 melatonin 5 mg Tablet 5 mg PO BEDTIME RF: 0 Paxil 10 mg tablet 10 mg PO BEDTIME RF: 0 Discharge Orders: Discharge Order (Routine); Ordered 01/21/20 Ordered By: Callum Reyes Referrals: Emerson Baker Jr, MD [Primary Care Provider] - Discharge Diet: Usual diet Discharge Activity: Increase activity as tolerated Patient Instructions: Cellulitis (ED) Activity Restrictions/Additional Instructions: Home and rest. Elevate extremities. Take antibiotic as directed. Activity as tolerated. Return to the emergency department for high fever or worsening symptoms. Follow-up with primary care in 1 week. Coding Level of Care Code ED Office Professionals for Jose Fwavis Exam Comprehensive
--- NOTE | 2020-01-21 17:18 | XRR_ITS ---
PROCEDURE INFORMATION: Exam: XR Chest, 1 View Exam date and time: 01/21/2020 5:55 PM Age: 54 years old Clinical indication: Shortness of breath and other: Weakness; Patient HX: Leg pain/weakness/short of breath x 2 months. HX of copd TECHNIQUE: Imaging protocol: XR of the chest Views: 1 view. COMPARISON: XR CHEST 01/09/2020 7:46 PM CTA CHEST 12/14/2019 4:54 PM FINDINGS: Lungs: Persistent faint opacity in the right lung base, unchanged in the interval. Bilateral parenchymal scarring. Pleural space: Small pleural effusions versus bilateral extrapleural fat deposition. No pneumothorax. Heart/Mediastinum: The cardiac silhouette is not enlarged. The mediastinal contours are normal. Bones/joints: No acute osseous abnormality XR/XR chest 1V portable [id number] IMPRESSION: No change in right basilar airspace disease. Consider pneumonia or rounded atelectasis.
--- NOTE | 2020-01-21 17:19 | ECG_ITS ---
[facility] Test Date: 2020-01-21 Pat Name: Maria G Merritt Department: Room: Gender: Female Bods Developer: : 1965 Requested By: Callum Galarza Order Number: [id number] Rah MD: Aniyah Blanca M.D. Measurements Intervals [place] Rate: 90 P: 34 [place]: 160 QRS: 23 QRSD: 87 T: 30 QT: 346 QTc: 425 Interpretive Statements SINUS RHYTHM Compared to ECG 01/09/2020 19:18:07 No significant changes Electronically Signed On 01-21-2020 21:23:53 CDT by Aniyah Blanca M.D. [email or web address] [email or web address] [email or web address].[email or web address]/store/OM/[id number]
[2020-01-21 17:48] LABS: Basophils # 0.1 10^3/uL (0.0-0.1); Basophils % 0.9 %; Eosinophils # 0.1 10^3/uL (0.0-0.8); Eosinophils % 1.3 %; Hematocrit 33.8 % (37.0-47.0); Hemoglobin 10.3 g/dL (11.5-15.3); Lymphocytes # 1.8 10^3/uL (0.8-4.8); Lymphocytes % 19.7 %; Mean Corpuscular HGB Conc 30.5 g/dL (30.0-36.0); Mean Corpuscular Hemoglobin 28.7 pg (28.0-34.0); Mean Corpuscular Volume 94.2 fL (81-99); Mean Platelet Volume 10.1 fL (7.4-10.4); Monocytes # 1.2 10^3/uL (0.2-0.9); Monocytes % 13.5 %; Neutrophils # 5.72 10^3/uL (1.8-7.7); Neutrophils % 64.3 %; Nucleated Red Blood Cells % 0 %; Platelet Count 228 10^3/cmm (130-400); Red Blood Count 3.59 10^6/uL (4.1-5.3); Red Cell Distribution Width 18.6 % (12.1-15.1); White Blood Count 8.9 10^3/uL (4.0-10.0)
[2020-01-21 18:12] LABS: Troponin(5th) Baseline 9 ng/L (0-10)
[2020-01-21 18:20] LABS: Alanine Aminotransferase 16 U/L (0-33); Albumin Level 3.1 g/dL (3.5-5.2); Alkaline Phosphatase 233 IU/L (35-105); Anion Gap 12.1 (5-19); Aspartate Amino Transferase 30 U/L (0-32); Blood Urea Nitrogen 15 mg/dL (6-20); Calcium 9.1 mg/dL (8.5-10.5); Carbon Dioxide 22 mmol/L (22-29); Chloride 106 mmol/L (98-107); Globulin 2.7 g/dL (1.3-4.6); Glomerular Filtration Rate 42.8 mL/min (90-130); Glucose 92 mg/dL (65-115); NT Pro B Type Natriuretic Pept 176 pg/mL (0-125); Osmolality Calculated 280 mOsm/kg (285-295); Potassium 3.1 mmol/L (3.5-5.1); Sodium 137 mmol/L (136-145); Total Bilirubin 0.6 mg/dL (0.15-1.2); Total Protein 5.8 g/dL (6.6-8.7)
[2020-01-21 18:50] LABS: Add Urine Microscopic? YES; Bilirubin Urine Neg (NEGATIVE); Blood Urine 3+ (Negative); Glucose Urine UA Norm (Normal); Ketones Urine Negative (Negative); Leukocyte Esterase Urine Negative (Negative); Nitrate Urine Positive (Negative); Protein Urine Neg (Negative); Urine Appearance Cloudy (CLEAR); Urine Color Yellow (Yellow); Urobilinogen Urine 4 mg/dL (Negative); pH Urine 5 (5-7)
[2020-01-21 18:52] LABS: Bacteria Urine 2+
[2020-01-21 18:53] LABS: Hyaline Casts Urine 0-4; WBC Urine 0-4 /hpf (0-5)
[2020-01-21 18:54] LABS: Add Urine Culture? Yes
[2020-01-21 19:04] VITALS: BP 134/74; PULSE 72; RESP 17; O2SAT 96
[2020-01-21] MEDS: cephALEXin 500 mg Capsule PO (19:09)
== END 2020-01-21 19:10 | disposition home or self-care (01) ==
PROVIDERS: Emergency Provider Nurse Practitioner Family; PCP Family Medicine
DX: R60.9 Edema, unspecified (principal); L03.119 Cellulitis of unspecified part of limb; Z79.01 Long term (current) use of anticoagulants; J44.9 Chronic obstructive pulmonary disease, unspecified; E78.5 Hyperlipidemia, unspecified; I10 Essential (primary) hypertension; F17.210 Nicotine dependence, cigarettes, uncomplicated
CPT/HCPCS: 12345; 36415; 71045; 80053; 81001; 83880; 84484; 85025; 87077; 87086; 87186; 93005; 99281; 99283

== ENCOUNTER → 2020-02-19 07:48 | Outpatient (BNVA) | payer MEDICARE, MEDICAID, SELFPAY | PROVIDERS: PCP Family Medicine; Visit Provider Nurse Practitioner | DX: F33.1 Major depressive disorder, recurrent, moderate (principal); F41.1 Generalized anxiety disorder | CPT/HCPCS: 99213 ==

== ENCOUNTER 2020-03-18 20:00 | Outpatient (CLI) | payer MEDICARE, MEDICAID, SELFPAY | END 2020-03-18 20:01 | disposition home or self-care (01) | LOC: SLEEP 03-19 08:12 | PROVIDERS: PCP Family Medicine; Visit Provider Nurse Practitioner Family | DX: G47.10 Hypersomnia, unspecified (principal); R53.83 Other fatigue; R06.83 Snoring | CPT/HCPCS: 95810 ==

== ENCOUNTER 2020-04-21 10:48 | Outpatient (RCR) | payer MEDICARE, MEDICAID, SELFPAY | END 2020-05-10 23:59 | disposition home or self-care (01) | LOC: SPT 10:48 | PROVIDERS: PCP Nurse Practitioner Family; Referring Provider Nurse Practitioner Family; Visit Provider Nurse Practitioner Family | DX: R60.0 Localized edema (principal) | CPT/HCPCS: 97140; 97161 ==

== ENCOUNTER → 2020-04-22 15:53 | Outpatient (BNVA) | payer OTHER, SELFPAY | PROVIDERS: PCP Nurse Practitioner Family; Visit Provider Nurse Practitioner | DX: F41.1 Generalized anxiety disorder (principal); Z79.899 Other long term (current) drug therapy | CPT/HCPCS: 80061; 83036 ==

== ENCOUNTER 2020-05-18 14:16 | Observation (INO) | payer MEDICARE, MEDICAID, SELFPAY ==
[2020-04-23 13:43] VITALS: BP 124/66; BMI 56.5
[2020-05-18 14:18] VITALS: BP 161/45; PULSE 89; RESP 18; TEMP 36.4; O2SAT 100; BMI 56.5
--- NOTE | 2020-05-18 14:24 | W.ED.CHESTPA ---
HPI - Chest Pain General: Chief Complaint: Dizziness Stated Complaint: GENERAL WEAKNESS, SOB Time Seen by Provider: 05/18/20 14:17 Source: patient and EMS Mode of arrival: EMS Limitations: no limitations History of Present Illness: HPI narrative: 54-year-old female who states she has been having chest pain along with dyspnea for last few days. Patient has a history of COPD. She denies any fever. Patient is well-appearing here and her pulse ox are percent on room air. She denies any worsening improving factors. Associated symptoms: Reports dyspnea; Deny abdominal pain, fever(s), nausea or vomiting Review of Systems Const: Denies: fever(s), chills, body aches or change in appetite Eyes: Denies: blurry vision or eye discomfort ENMT: Denies: throat pain or dental pain Card: Reports: chest pain Resp: Reports: dyspnea GI: Denies: abdominal pain, nausea, vomiting or diarrhea : Denies: dysuria Musc: Denies: neck pain or back pain Skin/Breast: Denies: rash Neuro: Denies: headache(s) Psych: Denies: depression Elvis/Lymph: Denies: easy bruising All/Imm: Denies: urticaria PFSH ED PFSH: Medical History Aortic valve stenosis Atypical chest pain Chronic back pain COPD (chronic obstructive pulmonary disease) Generalized anxiety disorder Hyperlipidemia Hypertension Hypothyroidism Major depressive disorder, recurrent, moderate Obesity Osteoarthritis Sleep apnea Tobacco abuse Family History Father Hypertension Hyperlipidemia Cancer Brother Hypertension CAD (coronary artery disease) Hyperlipidemia Sister Hypertension Cancer Grandfather Hypertension Diabetes Grandmother Hypertension CAD (coronary artery disease) Cancer Diabetes Mother CAD (coronary artery disease) Hypertension Hyperlipidemia Cancer Denies family history of Anesthesia complication Social History Smoking and tobacco status: current every day smoker cigarettes Years cigarettes smoked: 34 Quit status (tobacco): considering quitting Smoking risk assessment/counseling performed?: Yes Alcohol intake: current Alcohol intake frequency: holidays/special occasions only Desire information about alcohol rehabilitation?: No Counseling given: No Marital status: Single Current gender identity: Female Physical Exam Const: COMMON NORMALS: no acute distress, patient oriented x3 and healthy appearing HENMT: COMMON NORMALS: normocephalic and atraumatic HEAD & SCALP: normocephalic and atraumatic Eye: COMMON NORMALS: Equal, round and reactive pupils present and EOMs intact bilaterally PUPIL: Yes Equal, round and reactive pupils present Neck/C-Spine: COMMON NORMALS: full ROM and supple Chest: COMMONS NORMALS: normal inspection of the chest and normal palpation of entire chest wall Resp: COMMON NORMALS: normal respiratory effort, No retractions, No use of accessory muscles and clear to auscultation bilaterally AUSCULTATION: clear to auscultation bilaterally Cardio: COMMON NORMALS: regular rate, regular rhythm and No murmurs present (Cardio) RATE: regular rate RHYTHM: regular rhythm GI: COMMON NORMALS: Normal to inspection, nondistended, normoactive bowel sounds present, Soft to palpation, non-tender and no masses PALPATION: Yes Soft to palpation Extremity: COMMON NORMALS: normal to inspection and full ROM Neuro: COMMON NORMALS: patient oriented x3, moves all extremities and no focal motor deficits Psych: COMMON NORMALS: mental status grossly normal, Normal thought process present and cooperative THOUGHT PROCESS: Normal thought process present Skin: COMMON NORMALS: no rashes or lesions noted and no wounds GENERAL SKIN EXAM: no rashes or lesions noted Course Vital Signs: Vital signs: Vital Signs Temperature 97.5 F L 05/18/20 14:18 Pulse Rate 89 05/18/20 14:18 Respiratory Rate 18 05/18/20 14:18 Blood Pressure 161/45 05/18/20 14:18 Pulse Oximetry 100 05/18/20 14:18 MDM - Chest Pain Lab Data: Labs: Lab Results 05/18/20 05/18/20 05/18/20 Range/Units 14:37 14:37 14:37 WBC 5.6 (4.0-10.0) 10^3/ uL RBC 3.82 L (4.1-5.3) 10^6/u L Hgb 9.9 L (11.5-15.3) g/dL Hct 32.5 L (37.0-47.0) % MCV 85.1 (81-99) fL MCH 25.9 L (28.0-34.0) pg MCHC 30.5 (30.0-36.0) g/dL RDW 18.4 H (12.1-15.1) % Plt Count 223 (130-400) 10^3/c mm MPV 10.2 (7.4-10.4) fL Neut % (Auto) 65.6 % Lymph % (Auto) 18.2 % [place] % (Auto) 12.8 % Eos % (Auto) 2.5 % Baso % (Auto) 0.5 % Neut # (Auto) 3.68 (1.8-7.7) 10^3/u L Lymph # (Auto) 1.0 (0.8-4.8) 10^3/u L [place] # (Auto) 0.7 (0.2-0.9) 10^3/u L Eos # (Auto) 0.1 (0.0-0.8) 10^3/u L Baso # (Auto) 0.0 (0.0-0.1) 10^3/u L Nucleated RBC % (a uto) 0 % Nucleated RBCs # 0.0 /100WBC Sodium 141 (136-145) mmol/L Potassium 4.2 (3.5-5.1) mmol/L Chloride 109 H (98-107) mmol/L Carbon Dioxide 23 (22-29) mmol/L Anion Gap 13.2 (5-19) BUN 18 (6-20) mg/dL Creatinine 1.0 H (0.5-0.9) mg/dL GFR Calculation 58.0 L (90-130) mL/min Glucose 105 (65-115) mg/dL Calculated Osmolal ity 294 (285-295) mOsm/k g Calcium 9.6 (8.5-10.5) mg/dL Total Bilirubin 0.3 (0.15-1.2) mg/dL AST 20 (0-32) U/L ALT 12 (0-33) U/L Alkaline Phosphata se 260 H (35-105) IU/L Troponin T Baselin e 10 (0-10) ng/L Troponin T 120 Min [place] (0-10) ng/L Delta Troponin T (0-10) ABS# NT-Pro-B Natriuret Pep 404 H (0-125) pg/mL Total Protein 6.8 (6.6-8.7) g/dL Albumin 3.1 L (3.5-5.2) g/dL Globulin 3.7 (1.3-4.6) g/dL 05/18/20 Range/Units 16:28 WBC (4.0-10.0) 10^3/ uL RBC (4.1-5.3) 10^6/u L Hgb (11.5-15.3) g/dL Hct (37.0-47.0) % MCV (81-99) fL MCH (28.0-34.0) pg MCHC (30.0-36.0) g/dL RDW (12.1-15.1) % Plt Count (130-400) 10^3/c mm MPV (7.4-10.4) fL Neut % (Auto) % Lymph % (Auto) % [place] % (Auto) % Eos % (Auto) % Baso % (Auto) % Neut # (Auto) (1.8-7.7) 10^3/u L Lymph # (Auto) (0.8-4.8) 10^3/u L [place] # (Auto) (0.2-0.9) 10^3/u L Eos # (Auto) (0.0-0.8) 10^3/u L Baso # (Auto) (0.0-0.1) 10^3/u L Nucleated RBC % (a uto) % Nucleated RBCs # /100WBC Sodium (136-145) mmol/L Potassium (3.5-5.1) mmol/L Chloride (98-107) mmol/L Carbon Dioxide (22-29) mmol/L Anion Gap (5-19) BUN (6-20) mg/dL Creatinine (0.5-0.9) mg/dL GFR Calculation (90-130) mL/min Glucose (65-115) mg/dL Calculated Osmolal ity (285-295) mOsm/k g Calcium (8.5-10.5) mg/dL Total Bilirubin (0.15-1.2) mg/dL AST (0-32) U/L ALT (0-33) U/L Alkaline Phosphata se (35-105) IU/L Troponin T Baselin e (0-10) ng/L Troponin T 120 Min [place] 9.50 (0-10) ng/L Delta Troponin T -0.50 L (0-10) ABS# NT-Pro-B Natriuret Pep (0-125) pg/mL Total Protein (6.6-8.7) g/dL Albumin (3.5-5.2) g/dL Globulin (1.3-4.6) g/dL EKG Data^: EKG 1: Attestation: I personally reviewed and interpreted this EKG as follows: EKG interpretation date: 05/18/20 EKG interpretation time: 14:29 Interpretation: nsr hr [address] or t wave abnormalities qrs 86 qtc 401 Discharge Plan Discharge Patient Disposition: Admitted As Inpatient Clinical Impression: Pneumonia Condition: Stable Discharge Diet: Advance as tolerated Discharge Activity: Resume usual activity Coding Level of Care Code ED Sales Contractor for Sueg Fwd Exam Comprehensive
--- NOTE | 2020-05-18 14:25 | ECG_ITS ---
[facility] Test Date: 2020-05-18 Pat Name: Maria G Merritt Department: Room: Gender: Female Anthropological Linguist: : 1965 Requested By: Chauncey Douglas Order Number: [id number] Rah MD: Suzie Hassan M.D. Measurements Intervals [place] Rate: 84 P: 42 [place]: 165 QRS: 38 QRSD: 86 T: 44 QT: 360 QTc: 427 Interpretive Statements SINUS RHYTHM WITH OCCASIONAL VENTRICULAR PREMATURE COMPLEXES Compared to ECG 01/21/2020 17:47:25 Ventricular premature complex(es) now present Electronically Signed On 05-18-2020 15:15:56 ELECTRICIAN SUPERVISOR by Suzie Hassan M.D. [email or web address] [email or web address] [email or web address]/[id number] f
--- NOTE | 2020-05-18 14:25 | XR_ITS ---
WS: [id number] XR chest 1V portable [id number] REASON FOR EXAM: cp FINDINGS: Compared to previous examination of 01/21/2020, the infiltrative changes in the left lower lung are ag ain identified. There appears to be some progression. Infiltrative changes in the right lower lung significantly increased compared to the previous examina tion. There is a right pleural effusion and/or pleural scarring on the right. This appears to be unch anged compared to the previous study. No other interval change or new finding. XR/XR chest 1V portable [id number] IMPRESSION: Bibasilar infiltrates which appear to have increased since the previous examina tion. Right pleural effusion and/or pleural scarring as above.
[2020-05-18 14:47] LABS: Basophils % 0.5 %; Eosinophils # 0.1 10^3/uL (0.0-0.8); Eosinophils % 2.5 %; Hematocrit 32.5 % (37.0-47.0); Hemoglobin 9.9 g/dL (11.5-15.3); Lymphocytes % 18.2 %; Mean Corpuscular HGB Conc 30.5 g/dL (30.0-36.0); Mean Corpuscular Hemoglobin 25.9 pg (28.0-34.0); Mean Corpuscular Volume 85.1 fL (81-99); Mean Platelet Volume 10.2 fL (7.4-10.4); Monocytes # 0.7 10^3/uL (0.2-0.9); Monocytes % 12.8 %; Neutrophils # 3.68 10^3/uL (1.8-7.7); Neutrophils % 65.6 %; Nucleated Red Blood Cells % 0 %; Platelet Count 223 10^3/cmm (130-400); Red Blood Count 3.82 10^6/uL (4.1-5.3); Red Cell Distribution Width 18.4 % (12.1-15.1); White Blood Count 5.6 10^3/uL (4.0-10.0)
[2020-05-18 15:07] LABS: Troponin(5th) Baseline 10 ng/L (0-10)
[2020-05-18 15:15] LABS: Alanine Aminotransferase 12 U/L (0-33); Albumin Level 3.1 g/dL (3.5-5.2); Alkaline Phosphatase 260 IU/L (35-105); Anion Gap 13.2 (5-19); Aspartate Amino Transferase 20 U/L (0-32); Blood Urea Nitrogen 18 mg/dL (6-20); Calcium 9.6 mg/dL (8.5-10.5); Carbon Dioxide 23 mmol/L (22-29); Chloride 109 mmol/L (98-107); Globulin 3.7 g/dL (1.3-4.6); Glucose 105 mg/dL (65-115); NT Pro B Type Natriuretic Pept 404 pg/mL (0-125); Osmolality Calculated 294 mOsm/kg (285-295); Potassium 4.2 mmol/L (3.5-5.1); Sodium 141 mmol/L (136-145); Total Bilirubin 0.3 mg/dL (0.15-1.2); Total Protein 6.8 g/dL (6.6-8.7)
--- NOTE | 2020-05-18 15:59 | CT_ITS ---
WS: [id number] CT angio chest PE protcl [id number] REASON FOR EXAM: pe TECHNIQUE: Coronal and sagittal 2-D and MIP reformations. IV CONTRAST ADMINISTERED: 75 mL of Omnipaque 300. TOTAL EXAM DLP: 1995.[address] scans at [facility] use at least one of these dose optimization techniques: automat ed exposure control; mA and/or kV adjustment per patient size (includes targeted exams where dose is matched to clinical indication); or iterative reconstruction. FINDINGS: Comparison: CT chest 2012, CT chest 2018, CT chest 12/14/2019. No pulmonary emboli. Normal thoracic aorta, mediastinum, and hilar regions. Consolidation in both lower lobes is noted on the chest x-ray. In addition there is extensive groundg lass density and interstitial density throughout both lungs with focal patchy areas of infiltrative d ensity in the upper lobes which appear central lobar in distribution. Posterior right pleural effusion which has a thick enhancing wall. Moderately decreased bone density for age. Moderately severe degenerative spondylosis in the lower th oracic spine. CT/CT angio chest PE protcl [id number] IMPRESSION: Patient has had CT scans of the chest as far back as 2011. No pulmonary emboli have ever been demonstrated. The lower lobe consolidation seen on the CT scan was present on 12/14/2019. They may be somewhat larger on the current study. Also, in comparison to the CT scan 12/14/2019 the lung garza now demonstrate diffuse groundglass density with othe r areas of patchy consolidation in the upper lobes. Groundglass density in the lungs is a nonspecific finding seen with multiple entities often related to kenan ious interstitial lung diseases or small airway disease is. The most common cau se, congestive heart failure, does not appear applicable to this case. The ralph ent's findings have developed over 5 months. The right pleural effusion was present on the CT scan in 12/14/2019. It now has a thick enhancing rim and is of relatively the same volume. This may indicate an empyema or an organizing pleural peel.
--- NOTE | 2020-05-18 16:25 | ECG_ITS ---
[facility] Test Date: 2020-05-18 Pat Name: Maria G Merritt Department: Room: Gender: Female Custodial Supervisor: : 1965 Requested By: Chauncey Douglas Order Number: [id number] Monreal MD: Suzie Hassan M.D. Measurements Intervals [place] Rate: 93 P: 44 [place]: 170 QRS: 36 QRSD: 86 T: 44 QT: 350 QTc: 437 Interpretive Statements SINUS RHYTHM WITH FREQUENT VENTRICULAR PREMATURE COMPLEXES MINIMAL ST DEPRESSION [0.025+ mV ST DEPRESSION] Compared to ECG 05/18/2020 14:29:48 ST (T wave) deviation now present Electronically Signed On 05-18-2020 21:15:13 SLAB INSPECTOR by Suzie Hassan M.D. [email or web address] medical [email or web address] [email or web address]/[id number] f
[2020-05-18] MEDS: iohexol 350 mg/mL 100 mL Btl IV ×2 (17:01→17:02)
[2020-05-18] MEDS: cefTRIAXone 1,000 MG in sodium chloride 0.9% (plus) 50 ML 100 MG IV (19:16)
[2020-05-18] MEDS: azithromycin 500 MG in sodium chloride 0.9% 250 ML 250 MG IV (19:30)
[2020-05-18 19:41] VITALS: BP 127/53; PULSE 87; RESP 18; O2SAT 94
--- NOTE | 2020-05-18 19:41 | PM.HP ---
Providers/Chief Complaint Admitting Physician: Mary Cleary MD Primary Care Provider: Liza Davila NP Chief Complaint: GENERAL WEAKNESS, SOB History of Present Illness Maria G Merritt is a 54 year old female who carries multiple comorbid conditions such as severe aortic stenosis, COPD, morbid obesity, lower extremity lymphedema, presented today with chief complaint of right-sided chest discomfort, dizziness and shortness of breath. Patient is not a good historian she is not really sure why she is on Eliquis but she is endorsing history of PE. She lives alone, has home health services available to her, nurse visits her once a week who manages her medications. Patient is stating that for last 2 weeks she has been experiencing right-sided chest discomfort without any aggravating factors, she would experience chest pain at rest and sometimes on exertion, this chest pain associated with shortness of breath which has been getting worse gradually, she has also noticed fever 99.1 at home, and last 48 hours she experienced 2-3 episodes of loose stools as well. The symptoms are not associated with productive cough, orthopnea or PND, she is not on Lasix secondary to hypotension side effect. She has been feeling extremely lethargic and fatigued that is why she presented to the hospital for further evaluation. She denies recent use of antibiotics, rigors/chills, dysuria, blurry vision, headache, runny nose, sore throat. Of note, she is endorsing dizzy spells on bending over, yesterday when she bent over to unlock her front door she felt dizzy sat on the floor and hit her head against the front door. She is not sure what happened but she was awake did not experience any seizure-like activities, when she felt lightheaded she sat on the floor she did not black out completely. Diagnosis in the ER revealed normal CBC, BMP, vitals, CTA chest with contrast revealed CT/CT angio chest PE protcl [id number] IMPRESSION: Patient has had CT scans of the chest as far back as 2011. No pulmonary emboli have ever been demonstrated. The lower lobe consolidation seen on the CT scan was present on 12/14/2019. They may be somewhat larger on the current study. Also, in comparison to the CT scan 12/14/2019 the lung garza now demonstrate diffuse groundglass density with other areas of patchy consolidation in the upper lobes. Groundglass density in the lungs is a nonspecific finding seen with multiple entities often related to various interstitial lung diseases or small airway disease is. The most common cause, congestive heart failure, does not appear applicable to this case. The patient's findings have developed over 5 months. The right pleural effusion was present on the CT scan in 12/14/2019. It now has a thick enhancing rim and is of relatively the same volume. This may indicate an empyema or an organizing pleural peel Review of Systems Const: Reports: body aches, change in appetite, fatigue and malaise; Denies: fever(s) or chills Eyes: Denies: change in vision ENMT: Denies: throat pain Card: Reports: chest pain, palpitations, swelling of feet/ankles, pre-syncope and dyspnea on exertion Resp: Reports: dyspnea GI: Reports: diarrhea; Denies: abdominal pain, nausea or vomiting : Denies: flank pain Musc: Reports: extremity swelling Skin/Breast: Reports: lesions Neuro: Denies: headache(s) Psych: Reports: anxiety and depression Endo: Denies: polyuria Elvis/Lymph: Denies: easy bruising All/Imm: Denies: urticaria Medications/Allergies Home Medications Medication Instructions Recorded Confirmed Last Taken Type celecoxib 200 mg capsule 200 mg PO DAILY@ cap 06/17/19 05/18/20 05/18/20 History gabapentin 300 mg capsule 300 mg PO BEDTIME@ cap 06/17/19 05/18/20 05/17/20 History levothyroxine 100 mcg capsule 100 mcg PO DAILY@06/17/19 05/18/20 05/18/20 History montelukast 10 mg tablet 10 mg PO DAILY@06/17/19 05/18/20 05/17/20 History phentermine 37.5 mg capsule 37.5 mg PO DAILY@06/17/19 05/18/20 05/18/20 History apixaban [Eliquis] 5 mg PO BID@10/07/19 05/18/20 05/18/20 History baclofen 10 mg PO TID PRN 10/07/19 05/18/20 05/18/20 History fluticasone prp-sod.chl,bicarb See Rx Instructions .ROUTE .COMPLEX 10/07/19 05/18/2020 History nitroglycerin 0.4 mg SUBLINGUAL PRN PRN 10/07/19 05/18/20 Unknown History bupropion HCl 150 mg PO BID@01/21/20 05/18/20 05/18/20 History omeprazole 20 mg PO BID@01/21/20 05/18/20 05/18/20 History oxycodone-acetaminophen 1 tab PO Q4H PRN 01/21/20 05/18/20 05/18/20 History albuterol sulfate 90 mcg/actuation 2 puff INHALATION Q6H PRN 02/05/20 05/18/20 05/18/20 History aerosol inhaler loratadine 10 mg capsule 10 mg PO DAILY@02/05/20 05/18/20 05/18/20 History potassium chloride 20 mEq 20 meq PO BID@02/18/20 05/18/20 05/18/20 History tablet,extended release spironolactone 25 mg tablet 25 mg PO DAILY@02/18/20 05/18/20 05/18/20 History zonisamide 100 mg capsule See Rx Instructions .ROUTE 03/23/20 05/18/20 05/17/20 Rx .COMPLEX #540 cap duloxetine 60 mg capsule,delayed 60 mg PO DAILY@ cap 05/03/20 05/18/20 Unknown History release Abilify 5 mg PO DAILY@05/18/20 05/18/20 05/17/20 History Cozaar 50 mg PO DAILY@05/18/20 05/18/20 05/18/20 History docusate sodium [Stool Softener] 100 mg PO DAILY PRN 05/18/20 05/18/20 Unknown History doxycycline hyclate 100 mg PO BID 7 Days #14 cap 05/18/20 Unknown Rx paroxetine HCl [Paxil] 10 mg PO BEDTIME@05/18/20 05/18/20 05/17/20 History prednisone 50 mg PO DAILY #5 tab 05/18/20 Unknown Rx propranolol 10 mg PO BID@,05/18/20 05/18/20 05/18/20 History rosuvastatin [Crestor] 40 mg PO DAILY@05/18/20 05/18/20 05/17/20 History Allergies Allergy/AdvReac Type Severity Reaction Status Date / Time adhesive tape Allergy Unknown Verified 05/18/20 14:23 influenza virus vaccine qs Allergy Unknown Verified 05/18/20 14:23 [id number] (36 mos, up) [From Single Use EZ Flu] Flu Allergy Unknown unknown Uncoded 05/18/20 14:23 PFSH Acute PFSH: Medical History (Updated 05/18/20 @ 21:40 by Aniyah Cortes MD) Abnormal angiogram Aortic valve stenosis Atypical chest pain Chronic back pain COPD (chronic obstructive pulmonary disease) Generalized anxiety disorder Hyperlipidemia Hypertension Hypothyroidism Major depressive disorder, recurrent, moderate Obesity Obstructive pyelonephritis Osteoarthritis Sleep apnea Tobacco abuse Ureteral calculus, right Surgical History (Updated 05/18/20 @ 21:40 by Aniyah Cortes MD) H/O cardiac catheterization H/O cystoscopy H/O lateral meniscus repair of left knee S/P thyroidectomy Family History Father Hypertension Hyperlipidemia Cancer Brother Hypertension CAD (coronary artery disease) Hyperlipidemia Sister Hypertension Cancer Grandfather Hypertension Diabetes Grandmother Hypertension CAD (coronary artery disease) Cancer Diabetes Mother CAD (coronary artery disease) Hypertension Hyperlipidemia Cancer Denies family history of Anesthesia complication Social History Smoking and tobacco status: current every day smoker cigarettes Years cigarettes smoked: 34 Quit status (tobacco): considering quitting Smoking risk assessment/counseling performed?: Yes Alcohol intake: current Alcohol intake frequency: holidays/special occasions only Desire information about alcohol rehabilitation?: No Counseling given: No Marital status: Single Current gender identity: Female Vitals/I&O/Wt Last Vital Signs Temp 97.5 F L 05/18/20 14:18 Pulse 89 05/18/20 14:18 Resp 18 05/18/20 14:18 BP 161/45 05/18/20 14:18 Pulse Ox 100 05/18/20 14:18 Weight last 48 hrs Weight 158.757 kg Physical Exam Narrative: EXAM NARRATIVE: Middle-age female who looks more than stated age Not in any acute distress at the time of my evaluation She saturating well on room air, not complaining of active chest pain Cushingoid appearance Bilateral lower extremity edema, lymphedema S1, S2, clinically looks fluid overloaded Bilateral bibasilar crackles with diminished breath sounds No acute respiratory distress Abdomen soft distended bowel sound present Lower extremity nonpitting edema Pedal edema Awake alert oriented x3 GCS 15 Poor historian Appropriate mood and affect No neurological deficit noted EOMI, PERRLA Data : 05/18/20 14:37 05/18/20 14:37 Micro: Microbiology 05/18/20 19:05 Blood Culture - Preliminary Blood SPECIMEN COLLECTED 05/18/20 19:14 Blood Culture - Preliminary Blood SPECIMEN COLLECTED A&P Assessment and plan (1) Aortic valve stenosis: Status: Acute Qualifiers: Cardiac valve disease etiology: nonrheumatic Qualified Code(s): I35.0 - Nonrheumatic aortic (valve) stenosis (2) Diarrhea: Status: Acute (3) Exertional shortness of breath: Status: Acute (4) Unstable angina: Status: Acute (5) Pleural effusion: Status: Acute Additional A&P Information Symptomatic severe aortic valve stenosis Patient is complaining of unstable angina, shortness of breath, presyncopal events I believe the symptoms are secondary to worsening of aortic valve stenosis, will obtain another echo in the morning, she follows up with Dr. Riddle, she will need evaluation for TAVR Systolic blood pressure ranging between 100 to 110 mmHg, judicious use of diuretics in setting of preserved ejection fraction heart failure with bilateral pleural effusion Repeat echo in the morning Organizing pneumonia versus pleural thickening She has history of COPD, previously she has been treated for pneumonia as well CTA rule out PE, she is not requiring oxygen, saturating well on room air, She is currently on Eliquis No signs of systemic inflammatory response, no signs of sepsis I do believe her pleural thickening is secondary to chronic pleural effusion, I do not suspect empyema, I could clearly see lung parenchyma within organized pleural thickening, would not initiate any antibiotics at this time, hold off on steroids as well I would not start Lasix considering severe aortic valve stenosis to avoid decreasing preload, her BNP is 400 which could be secondary to vascular congestion due to severe aortic stenosis Diarrhea with weakness Covid antigen negative, I would request PCR which is more sensitive to rule out Covid, I do not have a very good etiology for her acute episode of diarrhea, no use of abx recently, no signs of systemic inflammation noted For her weakness I will check TSH level hold antipsychotics and continue her opioids for chronic analgesic use Polypharmacy affecting her symptoms as well Full code Cardiac diet DVT prophylaxis not needed currently on Eliquis Attestations Medical Necessity Statement*: Anticipating discharge in less than 48 hours she will need evaluation for severe aortic valve stenosis symptomatic presentation, rule out Covid Time Spent in Patient Care: (>than 50% of time spent in counselling and/or direct pt care on unit). 40mins Coding Level of Care Code Acute Plater Apprentice for Chg Fwd Diagnoses Aortic valve stenosis I35.0 Cardiac valve disease etiology: nonrheumatic Diarrhea R19.7 Exertional shortness of breath R06.02 Unstable angina I20.0 Pleural effusion J90
[2020-05-18 20:00] VITALS: BP 140/84; PULSE 88; RESP 18; O2SAT 96
[2020-05-18 20:23] LABS: SARS Covid-2 Antigen Negative (Negative)
--- NOTE | 2020-05-18 20:25 | ECG_ITS ---
[facility] Test Date: 2020-05-18 Pat Name: Maria G Merritt Department: Room: 273 Gender: Female Cigar Packer: : 1965 Requested By: Chauncey Douglas Order Number: [id number] MD: Suzie Hassan M.D. Measurements Intervals Hector Rate: 91 P: 48 CT: 166 QRS: 32 QRSD: 98 T: 30 QT: 375 QTc: 462 Interpretive Statements SINUS RHYTHM WITH OCCASIONAL VENTRICULAR PREMATURE COMPLEXES Compared to ECG 05/18/2020 17:48:58 ST (T wave) deviation no longer present Electronically Signed On 05-18-2020 21:07:05 DIESEL ENGINE PIPE FITTER by Suzie Hassan M.D. [id number]
[2020-05-18 21:25] LABS: Troponin 5 6HR 10.17 ng/L (0-10); Troponin 5 6HR Delta 0.17 ng/L (0-12)
[2020-05-18 21:43] VITALS: BP 136/61; PULSE 86; RESP 18; TEMP 37.1; O2SAT 97
[2020-05-18 22:21] VITALS: BP 140/83; PULSE 91; RESP 18; TEMP 36.6; O2SAT 99
[2020-05-18 22:23] LABS: Thyroid Stimulating Hormone 3.84 uIU/mL (0.27-4.20)
[2020-05-18] MEDS: gabapentin 300 mg Capsule PO (23:17)
[2020-05-18] MEDS: pantoprazole DR 40 mg Tablet PO (23:18)
[2020-05-18] MEDS: atorvastatin 40 mg Tablet 80 MG PO (23:18)
[2020-05-18] MEDS: apixaban 5 mg Tablet PO (23:18)
[2020-05-19] VITALS (11 sets, daily range): BP systolic 93–127; BP diastolic 51–70; PULSE 84–100; RESP 16–20; TEMP 36.4–37.1; O2SAT 91–98
[2020-05-19 05:44] LABS: Hematocrit 28.3 % (37.0-47.0); Lymphocytes # 0.4 10^3/uL (0.8-4.8); Lymphocytes % 13.8 %; Mean Corpuscular HGB Conc 31.8 g/dL (30.0-36.0); Mean Corpuscular Hemoglobin 26.5 pg (28.0-34.0); Mean Corpuscular Volume 83.2 fL (81-99); Mean Platelet Volume 10.6 fL (7.4-10.4); Monocytes # 0.1 10^3/uL (0.2-0.9); Neutrophils # 2.23 10^3/uL (1.8-7.7); Neutrophils % 82.8 %; Nucleated Red Blood Cells % 0 %; Platelet Count 196 10^3/cmm (130-400); Red Cell Distribution Width 18.2 % (12.1-15.1); White Blood Count 2.7 10^3/uL (4.0-10.0)
[2020-05-19] MEDS: losartan 50 mg Tablet 10 MG PO (06:04)
[2020-05-19] MEDS: pantoprazole DR 40 mg Tablet PO ×2 (06:04→21:12)
[2020-05-19] MEDS: levothyroxine 100 mcg Tablet PO (06:05)
[2020-05-19] MEDS: apixaban 5 mg Tablet PO ×2 (06:05→21:12)
[2020-05-19] MEDS: duloxetine 60 mg Capsule PO (06:05)
[2020-05-19] MEDS: spironolactone 25 mg Tablet PO (06:06)
[2020-05-19 06:12] LABS: Blood Urea Nitrogen 17 mg/dL (6-20); Calcium 9.3 mg/dL (8.5-10.5); Carbon Dioxide 23 mmol/L (22-29); Chloride 110 mmol/L (98-107); Glomerular Filtration Rate 65.5 mL/min (90-130); Glucose 140 mg/dL (65-115); Osmolality Calculated 292 mOsm/kg (285-295); Sodium 139 mmol/L (136-145)
--- NOTE | 2020-05-19 07:00 | USCV_ITS ---
Maria G Merritt Age: 54 Gender: F : 1965 Exam Date: 05/19/2020 13:23 Ordering Phys: Aniyah Cortes MD Technologist: Benson Plummer [place] [facility] [place]: NON RHEUMATIC AORTIC STENOSIS BP: 132 / 83 HR: 94 Rhythm: Sinus Technical Quality: Adequate MEASUREMENTS (Male / Female) Normal Values 2D ECHO LV Diastolic Diameter PLAX 3.9 cm 4.2 - 5.9 / 3.9 - 5.3 cm LV Systolic Diameter PLAX 2.2 cm IVS Diastolic Thickness 1.1 cm 0.6 - 1.0 / 0.6 - 0.9 cm IVS Systolic Thickness 1.3 cm LVPW Diastolic Thickness 0.9 cm 0.6 - 1.0 / 0.6 - 0.9 cm LVPW Systolic Thickness 1.3 cm LVOT Diameter 2.2 cm LV Ejection Fraction 2D Teich 77.0 % LV Ejection Fraction MOD 2C 48.8 % LV Ejection Fraction 2C AL 48.9 % LA Diameter 4.4 cm LA Width 4.6 cm LA Height 5.1 cm RA Width 4.0 cm RA Height 5.5 cm Aorta at Sinotubular Diameter 2.1 cm M-MODE LV Diastolic Diameter MM 4.0 cm 4.2 - 5.9 / 3.9 - 5.3 cm LV Systolic Diameter MM 2.5 cm LV Ejection Fraction MM Teich 66.8 % IVS Diastolic Thickness MM 0.9 cm 0.6 - 1.0 / 0.6 - 0.9 cm IVS Systolic Thickness MM 1.3 cm LVPW Diastolic Thickness MM 1.1 cm 0.6 - 1.0 / 0.6 - 0.9 cm LVPW Systolic Thickness MM 1.6 cm RV Diastolic Diameter MM 1.4 cm Aortic Annulus Diameter 3.5 cm LA Ao Ratio MM 1.2 MV E Point Septal Separation 0.7 cm DOPPLER AV Peak Velocity 350.0 cm/s LVOT Peak Velocity 101.0 cm/s AV Area Cont Eq vti 1.0 cm squared AV Area Cont Eq pk 1.1 cm squared MV Area PHT 5.0 cm squared Mitral E to A Ratio 0.9 MV E' Velocity 57.0 cm/s Mitral E to MV E' Ratio 10.4 Mitral E to LV E' Lateral Ratio 10.0 Mitral E to LV E' Septal Ratio 10.9 TR Peak Velocity 135.3 cm/s TR Peak Gradient 7.3 mmHg TV Peak E Velocity 103.0 cm/s Right Atrial Pressure 3.0 mmHg Pulmonary Artery Systolic Pressu 10.3 mmHg FINDINGS Left Ventricle Normal left ventricular cavity size. Increased left ventricular wall thickness. Moderate concentric left ventricular hypertrophy. Normal left ventricular systolic function. Left ventricular ejection fraction is estimated at 65 %. Although no diagnostic regional wall motion abnormality could be identified, this possibility cannot be completely excluded based on the study. Normal diastolic function. Right Ventricle Normal right ventricular size and systolic function. Right Atrium Right atrium not well visualized. Left Atrium Left atrium not well visualized. Mitral Valve Mild mitral annular calcification. No mitral valve stenosis. Aortic Valve Thickened and calcified aortic valve. Moderate aortic valve stenosis, peak velocity 3.5 m/s, peak gradient 50 mmHg, mean gradient 30 mmHg, LAI 1 cm squared. Mild to moderate aortic valve regurgitation. Tricuspid Valve Tricuspid valve not well visualized. Pulmonic Valve Structurally normal pulmonic valve. Pericardium No pericardial effusion. Aorta Normal-sized aortic root. CONCLUSIONS 1. This is a technically very difficult study. 2. Normal left ventricular cavity size. Moderate concentric left ventricular hypertrophy. Normal left ventricular systolic function. Left ventricular ejection fraction is estimated at 65 %. Although no diagnostic regional wall motion abnormality could be identified, this possibility cannot be completely excluded based on the study. 3. Moderate aortic valve stenosis, peak velocity 3.5 m/s, peak gradient 50 mmHg, mean gradient 30 mmHg, LAI 1 cm squared ( LVOT=22 mm). Dimensionless valve index 0.29. 4. Mild to moderate aortic valve regurgitation. 5. When compared to previous study dated 04/11/2019, aortic stenosis seems to have worsened but still remains in moderate range. Suzie Hassan MD (Electronically Signed) Final Date: 19 May 2020 18:33 S
--- NOTE | 2020-05-19 15:05 | PM.PN ---
Subjective Subjective: Interval history: 54 year old female With past medical history significant for hypertension, hyperlipidemia, hypothyroidism, anxiety, depression, sleep apnea, chronic bilateral lower extremity lymphedema, chronic obstructive pulmonary disease, LLE DVT/PE in 2018 on eliquis and moderate -severe aortic stenosis who presented to hospital with right-sided chest discomfort, dizziness and shortness of breath for past 2 weeks. This was associated with low grade fevers. laboratory workup arrival showed a WBC of 5.6, hemoglobin 9.9, hematocrit 32.5 and a platelet count of 223. sodium 141, potassium 4.2, chloride 109, bicarb 23, BUN 18 and creatinine 1.0. ProBNP 0 404. Rapid COVID antigen was negative however PCR sent out was pending. CT of Chest showed diffuse bilateral ground glass opacites with areas of patchy consolidation. Previously noted right sided pleural effusion now appear to have a thick enhancing rim suspicious for empyema or an organizing pleural peel which was similar in size. In ER patient was given solu-medrol 125 mg IV x 1, Rocephin 1g IV x 1 and Azithromycin 500 mg IV x 1. Patient symptoms were felt likley to be related to fluid overload. ECHO was ordered. Prior echo in 2019 had showed moderate with LAI of 1.3cm. Patient was seen by Dr. Riddle on 05/03/2020 during which time pt was suspected to have progression of valve stenosis to severe. She did not want any intervention. Repeat ECHO was ordered however unclear if this was obtained as I do not see this in the EMR. Case was also discussed with pulmonary. Empyema was less likely given similar size of right sided pleural effusion and non-toxic clinical condition as well as afebrile with out marked leukocytosis. Subjective 05/19/2020 Patient denied any new complaints. Denied worsening respiratory distress. No chest pain, fever, chills, nausea or vomiting. Vitals/I&O/Wt Last Vital Signs Temp 98.5 F 05/19/20 11:12 Pulse 84 05/19/20 11:12 Resp 20 H 05/19/20 11:12 BP 127/61 05/19/20 11:12 Pulse Ox 97 05/19/20 11:12 05/19/20 05/19/20 05/19/20 06:59 14:59 22:59 Intake Total 780 / 780 Output Total 0 / 0 Balance 0 / 0 780 / 780 Weight last 48 hrs Weight 158.757 kg Physical Exam Narrative: EXAM NARRATIVE: General : alert, no distress HEENT : Grossly unremarkable CVS : NSR, systolic murmur CHEST : non-labored respiration ABD : non-distended Ext : Sig Bilateral LE lymphedema Data : 05/19/20 05:00 05/19/20 05:30 Micro: Microbiology 05/18/20 19:05 Blood Culture - Preliminary Blood SPECIMEN COLLECTED 05/18/20 19:14 Blood Culture - Preliminary Blood SPECIMEN COLLECTED A&P Assessment and plan (1) Acute respiratory distress: Status: Acute (2) Pleural effusion: Status: Acute (3) Symptomatic severe aortic stenosis with normal ejection fraction: Status: Acute (4) Sleep apnea: Status: Acute Qualifiers: Sleep apnea type: unspecified type Qualified Code(s): G47.30 - Sleep apnea, unspecified (5) Hypertension: Status: Acute Qualifiers: Hypertension type: essential hypertension Qualified Code(s): I10 - Essential (primary) hypertension (6) Hyperlipidemia: Status: Acute Qualifiers: Hyperlipidemia type: mixed hyperlipidemia Qualified Code(s): E78.2 - Mixed hyperlipidemia Acute respiratory distress w/o hypoxia - Etiology multifactorial - Fluid overload vs viral pneumonia vs COPD exacerbation - Supplemental o2 as needed - Continue broncho-dilator tx. - CT Chest - No PE, Bilateral diffuse ground glass opacities with tobin areas of consolidation and again right sided pleural effusion with ring enhancement - Less likley to me empyema - monitoring off abx - Will check pro-calcitonin in am - May consider US guided thoracentesis and fluid analysis if febrile or worsening condition - Will start gentle dieresis - Will hold off on further steroids - COVID-19 PCR pending Acute on chronic HFpEF exacerbation / Symptomatic Aortic stenosis ( suspected severe ) - Follow Cardiology outpatient - Repeat ECHO ordered - May consider Cardiology consult - Gentle dieresis - Avoid sig pre-load reduction - Monitor daily weight - Strict input and output monitoring Hx of LLE DVT / PE - Noted on CTA chest in 2018 which had showed sign PE involving right pulmonary trunk and branches including right upper/middle/lower lobes. - Will continue Eliquis 5 mg PO BID DVT ppx - Eliquis as noted above. Additional Medical Problems - Chronic B/L LE lymphedema - Hypertension - Dyslipidemia - Hypothyroidism - O. Sleep Apnea - Anxiety / Depression - Chronic migraines Attestations Medical Necessity Statement*: Will require further hospitalization for workup of fluid overload requiring IV diuretics and aortic stenosis. Time Spent in Patient Care: Greater than 35 minutes (>than 50% of time spent in counselling and/or direct pt care on unit). Coding Level of Care Code Acute Reference Investigator for Sueg Fwd Diagnoses Acute respiratory distress R06.03 Pleural effusion J90 Symptomatic severe aortic stenosis with normal ejection fraction I35.0 Sleep apnea G47.30 Sleep apnea type: unspecified type Hypertension I10 Hypertension type: essential hypertension Hyperlipidemia E78.2 Hyperlipidemia type: mixed hyperlipidemia
[2020-05-19] MEDS: oxyCODONE-APAP 5-325 mg Tablet 1 TAB PO (17:18)
[2020-05-19] MEDS: gabapentin 300 mg Capsule PO (21:12)
[2020-05-19] MEDS: atorvastatin 40 mg Tablet 80 MG PO (21:12)
[2020-05-20] VITALS (11 sets, daily range): BP systolic 94–122; BP diastolic 53–65; PULSE 87–97; RESP 16–24; TEMP 36.3–37.1; O2SAT 93–100
[2020-05-20 03:58] LABS: Basophils % 0.5 %; Eosinophils # 0.1 10^3/uL (0.0-0.8); Eosinophils % 0.8 %; Hematocrit 26.7 % (37.0-47.0); Hemoglobin 8.3 g/dL (11.5-15.3); Lymphocytes # 1.5 10^3/uL (0.8-4.8); Lymphocytes % 17.8 %; Mean Corpuscular HGB Conc 31.1 g/dL (30.0-36.0); Mean Corpuscular Hemoglobin 26.6 pg (28.0-34.0); Mean Corpuscular Volume 85.6 fL (81-99); Mean Platelet Volume 10.3 fL (7.4-10.4); Monocytes # 0.9 10^3/uL (0.2-0.9); Monocytes % 10.7 %; Neutrophils # 5.98 10^3/uL (1.8-7.7); Neutrophils % 69.8 %; Nucleated Red Blood Cells % 0 %; Platelet Count 192 10^3/cmm (130-400); Red Blood Count 3.12 10^6/uL (4.1-5.3); Red Cell Distribution Width 18.6 % (12.1-15.1); White Blood Count 8.6 10^3/uL (4.0-10.0)
[2020-05-20 04:23] LABS: Alanine Aminotransferase 10 U/L (0-33); Albumin Level 2.4 g/dL (3.5-5.2); Alkaline Phosphatase 199 IU/L (35-105); Anion Gap 7.7 (5-19); Aspartate Amino Transferase 17 U/L (0-32); Blood Urea Nitrogen 22 mg/dL (6-20); Calcium 8.8 mg/dL (8.5-10.5); Carbon Dioxide 25 mmol/L (22-29); Chloride 113 mmol/L (98-107); Globulin 3.1 g/dL (1.3-4.6); Glucose 102 mg/dL (65-115); Osmolality Calculated 298 mOsm/kg (285-295); Potassium 3.7 mmol/L (3.5-5.1); Sodium 142 mmol/L (136-145); Total Bilirubin 0.3 mg/dL (0.15-1.2); Total Protein 5.5 g/dL (6.6-8.7)
[2020-05-20] MEDS: levothyroxine 100 mcg Tablet PO (05:35)
[2020-05-20] MEDS: losartan 50 mg Tablet 10 MG PO (05:37)
[2020-05-20] MEDS: duloxetine 60 mg Capsule PO (05:39)
[2020-05-20] MEDS: spironolactone 25 mg Tablet PO (05:39)
[2020-05-20] MEDS: apixaban 5 mg Tablet PO ×2 (05:41→21:03)
[2020-05-20] MEDS: pantoprazole DR 40 mg Tablet PO ×2 (05:42→21:02)
[2020-05-20 07:11] LABS: Coronavirus Lab Test PTC Negative
--- NOTE | 2020-05-20 13:15 | P.PN_ITS ---
Subjective Subjective: Interval history: 54 year old female With past medical history significant for hypertension, hyperlipidemia, hypothyroidism, anxiety, depression, sleep apnea, chronic bilateral lower extremity lymphedema, chronic obstructive pulmonary disease, LLE DVT/PE in 2018 on eliquis and moderate - severe aortic stenosis who presented to hospital with right-sided chest discomfort, dizziness and shortness of breath for past 2 weeks. This was associated with low grade fevers. laboratory workup arrival showed a WBC of 5.6, hemoglobin 9.9, hematocrit 32.5 and a platelet count of 223. sodium 141, potassium 4.2, chloride 109, bicarb 23, BUN 18 and creatinine 1.0. ProBNP 0 404. Rapid COVID antigen was negative however PCR sent out was pending. CT of Chest showed diffuse bilateral ground glass opacities with areas of patchy consolidation. Previously noted right sided pleural effusion now appear to have a thick enhancing rim suspicious for empyema or an organizing pleural peel which was similar in size. In ER patient was given solu-medrol 125 mg IV x 1, Rocephin 1g IV x 1 and Azithromycin 500 mg IV x 1. Patient symptoms were felt likely to be related to fluid overload. ECHO was ordered. Prior echo in 2019 had showed moderate with LAI of 1.3cm. Patient was seen by Dr. Riddle on 05/03/2020 during which time pt was suspected to have progression of valve stenosis to severe. She did not want any intervention. Repeat ECHO was ordered however unclear if this was obtained as I do not see this in the EMR. Case was also discussed with pulmonary. Empyema was less likely given similar size of right sided pleural effusion and non-toxic clinical condition as well as afebrile with out marked leukocytosis. Subjective 05/19/2020 Patient denied any new complaints. Denied worsening respiratory distress. No chest pain, fever, chills, nausea or vomiting. 05/20/2020 Patient stated she was feeling back to baseline. No new clinical events overnight. No fever, chills, nausea or vomiting. Remained on room air. Denied diarrhea. Vitals/I&O/Wt Last Vital Signs Temp 97.3 F L 05/20/20 11:29 Pulse 88 05/20/20 11:29 Resp 18 05/20/20 11:29 BP 104/63 05/20/20 11:29 Pulse Ox 100 05/20/20 11:29 05/19/20 05/20/20 05/20/20 22:59 06:59 14:59 Intake Total 250 / 1390 300 / 300 Output Total 400 / 400 Balance -150 / 990 300 / 300 Weight last 48 hrs Weight 158.757 kg Physical Exam Narrative: EXAM NARRATIVE: General : alert, no distress HEENT : Grossly unremarkable CVS : NSR, systolic murmur CHEST : non-labored respiration ABD : non-distended Ext : Sig Bilateral LE lymphedema Data : 05/20/20 03:44 05/20/20 03:44 Micro: Microbiology 05/18/20 19:05 Blood Culture - Preliminary Blood NEGATIVE TO DATE 05/18/20 19:14 Blood Culture - Preliminary Blood NEGATIVE TO DATE 05/19/20 09:40 C.difficile Toxin B Gene (PCR) - Final Stool Routine Collection A&P Assessment and plan (1) Acute respiratory distress: Status: Acute (2) Pleural effusion: Status: Acute (3) Symptomatic severe aortic stenosis with normal ejection fraction: Status: Acute (4) Sleep apnea: Status: Acute Qualifiers: Sleep apnea type: unspecified type Qualified Code(s): G47.30 - Sleep apnea, unspecified (5) Hypertension: Status: Acute Qualifiers: Hypertension type: essential hypertension Qualified Code(s): I10 - Essential (primary) hypertension (6) Hyperlipidemia: Status: Acute Qualifiers: Hyperlipidemia type: mixed hyperlipidemia Qualified Code(s): E78.2 - Mixed hyperlipidemia Acute respiratory distress w/o hypoxia - Etiology multi-factorial - Fluid overload vs viral pneumonia vs COPD exacerbation - Supplemental o2 as needed - Has remained on RA - Continue broncho-dilator tx. - CT Chest - No PE, Bilateral diffuse ground glass opacities with patchy areas of consolidation and again right sided pleural effusion with ring enhancement - Less likely to me empyema - monitoring off abx - Will check pro-calcitonin now , Blood culture x 2 - NGTD - May consider US guided thoracentesis and fluid analysis if febrile or worsening condition - Will start gentle dieresis - Lasix 40 mg IV daily added - Will hold off on further steroids - COVID-19 PCR negative - Repeat Chest-xray in am Acute on chronic HFpEF exacerbation / Symptomatic Aortic stenosis - Follow Cardiology outpatient - Repeat ECHO noted pEF, normal diastolic dysfunction. - D/w cardiology. - Gentle dieresis - Avoid sig pre-load reduction - Monitor daily weight - Strict input and output monitoring Diarrhea - Improving - C-diff negative Hx of LLE DVT / PE - Noted on CTA chest in 2018 which had showed sign PE involving right pulmonary trunk and branches including right upper/middle/lower lobes. - Will continue Eliquis 5 mg PO BID Debility - Will consult PT for eval DVT ppx - Eliquis as noted above. Additional Medical Problems - Chronic B/L LE lymphedema - Hypertension - Dyslipidemia - Hypothyroidism - O. Sleep Apnea - Anxiety / Depression - Chronic migraines Attestations Medical Necessity Statement*: Will require further hospitalization for IV dieresis, if stable anticipate possible discharge in am Coding Level of Care Code Acute Instructional Facilitator for g Fwd Diagnoses Acute respiratory distress R06.03 Pleural effusion J90 Symptomatic severe aortic stenosis with normal ejection fraction I35.0 Sleep apnea G47.30 Sleep apnea type: unspecified type Hypertension I10 Hypertension type: essential hypertension Hyperlipidemia E78.2 Hyperlipidemia type: mixed hyperlipidemia
[2020-05-20 13:40] LABS: Procalcitonin 0.43 ng/mL (0-0.5)
[2020-05-20] MEDS: FUROsemide 10 mg/mL SDV 4mL 40 MG IVP (14:42)
[2020-05-20] MEDS: oxyCODONE-APAP 5-325 mg Tablet 1 TAB PO ×2 (14:48→21:02)
[2020-05-20] MEDS: atorvastatin 40 mg Tablet 80 MG PO (21:02)
[2020-05-20] MEDS: gabapentin 300 mg Capsule PO (21:03)
[2020-05-21] VITALS (9 sets, daily range): BP systolic 92–127; BP diastolic 50–65; PULSE 84–96; RESP 18–20; TEMP 36.6–37.1; O2SAT 93–97
[2020-05-21 04:06] LABS: Basophils % 0.4 %; Eosinophils # 0.1 10^3/uL (0.0-0.8); Eosinophils % 2.5 %; Hematocrit 26.2 % (37.0-47.0); Hemoglobin 8.1 g/dL (11.5-15.3); Lymphocytes # 1.3 10^3/uL (0.8-4.8); Lymphocytes % 24.8 %; Mean Corpuscular HGB Conc 30.9 g/dL (30.0-36.0); Mean Corpuscular Hemoglobin 26.1 pg (28.0-34.0); Mean Corpuscular Volume 84.5 fL (81-99); Mean Platelet Volume 10.8 fL (7.4-10.4); Monocytes # 0.5 10^3/uL (0.2-0.9); Monocytes % 10.4 %; Neutrophils # 3.21 10^3/uL (1.8-7.7); Neutrophils % 61.7 %; Nucleated Red Blood Cells % 0 %; Platelet Count 167 10^3/cmm (130-400); Red Cell Distribution Width 18.6 % (12.1-15.1); White Blood Count 5.2 10^3/uL (4.0-10.0)
[2020-05-21 04:35] LABS: Alanine Aminotransferase 9 U/L (0-33); Albumin Level 2.6 g/dL (3.5-5.2); Alkaline Phosphatase 202 IU/L (35-105); Anion Gap 9.6 (5-19); Aspartate Amino Transferase 17 U/L (0-32); Blood Urea Nitrogen 22 mg/dL (6-20); Calcium 8.6 mg/dL (8.5-10.5); Carbon Dioxide 25 mmol/L (22-29); Chloride 108 mmol/L (98-107); Globulin 2.9 g/dL (1.3-4.6); Glucose 81 mg/dL (65-115); Osmolality Calculated 290 mOsm/kg (285-295); Potassium 3.6 mmol/L (3.5-5.1); Sodium 139 mmol/L (136-145); Total Bilirubin 0.3 mg/dL (0.15-1.2); Total Protein 5.5 g/dL (6.6-8.7)
[2020-05-21] MEDS: spironolactone 25 mg Tablet PO (06:11)
[2020-05-21] MEDS: apixaban 5 mg Tablet PO (06:11)
[2020-05-21] MEDS: pantoprazole DR 40 mg Tablet PO (06:11)
[2020-05-21] MEDS: levothyroxine 100 mcg Tablet PO (06:11)
[2020-05-21] MEDS: duloxetine 60 mg Capsule PO (06:11)
--- NOTE | 2020-05-21 07:00 | XR_ITS ---
WS: [id number] XR chest 2V* [id number] REASON FOR EXAM: dyspnea FINDINGS: The infiltrative changes in the lung bases are resolving compared to the previous examination of 05/18. There is residual density seen in the right lower lung. There are infiltrates seen in the uppe r lung garza at this time that in retrospect were [facility] confirmed those upper lobe infiltrates on 05/18/2020. Right pleural effusion unchanged. XR/XR chest 2V* [id number] IMPRESSION: Lower lobe infiltrates are improving. Upper lobe infiltrates are more prominent than on the previous exam.
--- NOTE | 2020-05-21 07:01 | PC.NURSE ---
SHIFT SUMMARY Rested well tonight. Gets up to BSC with 2 assist. Down to xray via wheelchair this am.
--- NOTE | 2020-05-21 09:05 | PC.SOCIAL ---
IMM Page 2 of IMM explained to patient. Initialed, dated, and timed and placed in chart. Copy provided to patient.
[2020-05-21] MEDS: oxyCODONE-APAP 5-325 mg Tablet 1 TAB PO (11:52)
--- NOTE | 2020-05-21 12:40 | PC.RESP ---
Smoking Cessation and Pulmonary Rehab information sent to patient.
--- NOTE | 2020-05-21 17:47 | PM.DCS ---
Discharge Providers Date of Admission: 05/18/20 22:42 Date of Discharge: May 21, 2020 Attending Provider at Admission: Mary Cleary MD Attending Provider at Discharge: Enrrique Pitt Primary Care Provider: Liza Davila NP Diagnoses at Discharge Discharge Diagnosis (1) Acute respiratory distress: Status: Acute (2) Pleural effusion: Status: Acute (3) Symptomatic severe aortic stenosis with normal ejection fraction: Status: Acute (4) Sleep apnea: Status: Acute Qualifiers: Sleep apnea type: unspecified type Qualified Code(s): G47.30 - Sleep apnea, unspecified (5) Hypertension: Status: Acute Qualifiers: Hypertension type: essential hypertension Qualified Code(s): I10 - Essential (primary) hypertension (6) Hyperlipidemia: Status: Acute Qualifiers: Hyperlipidemia type: mixed hyperlipidemia Qualified Code(s): E78.2 - Mixed hyperlipidemia Reason for Visit Reason for Visit: GENERAL WEAKNESS, SOB Hospital Course Hospital Course 54 year old female With past medical history significant for hypertension, hyperlipidemia, hypothyroidism, anxiety, depression, sleep apnea, chronic bilateral lower extremity lymphedema, chronic obstructive pulmonary disease, LLE DVT/PE in 2018 on eliquis and moderate -severe aortic stenosis who presented to hospital with right-sided chest discomfort, dizziness and shortness of breath for past 2 weeks. This was associated with low grade fevers. laboratory workup arrival showed a WBC of 5.6, hemoglobin 9.9, hematocrit 32.5 and a platelet count of 223. sodium 141, potassium 4.2, chloride 109, bicarb 23, BUN 18 and creatinine 1.0. ProBNP 0 404. Rapid COVID antigen was negative however PCR sent out was pending. CT of Chest showed diffuse bilateral ground glass opacities with areas of patchy consolidation. Previously noted right sided pleural effusion now appear to have a thick enhancing rim suspicious for empyema or an organizing pleural peel which was similar in size. Case was also discussed with pulmonary. Empyema was less likely given similar size of right sided pleural effusion and non-toxic clinical condition as well as afebrile with out marked leukocytosis. In ER patient was given solu-medrol 125 mg IV x 1, Rocephin 1g IV x 1 and Azithromycin 500 mg IV x 1. Patient symptoms were felt likely to be related to fluid overload. . Prior echo in 2019 had showed moderate with LAI of 1.3cm. Patient was seen by Dr. Riddle on 05/03/2020 during which time pt was suspected to have progression of valve stenosis to severe. She did not want any intervention at that time.. Repeat ECHO on 05/03 was ordered however unclear if this was obtained as I do not see this in the EMR. Upon admission to the hospital patient was tested for COVID-19 PCR which eventually was found to be negative. Repeat echocardiogram was performed which was a technically difficult study to review however was found to have normal left ventricular size. Ejection fraction was 65% without any evidence of regional wall motion abnormality. Moderate aortic valve stenosis with a peak velocity of 3.5 m/s, peak gradient of 50 mmhg, mean gradient of 30 mmhg and LAI 1 cm2. Compared to prior echocardiogram this has slightly worsened however remained in moderate range. Mild to moderate aortic valve regurgitation was also noted. Patient did not require supplemental oxygen throughout hospitalization. She was given a dose of Lasix after which she stated she felt somewhat dizzy . She denies any further respiratory distress. Repeat chest x-ray was performed which showed left lower lobe infiltrates to be improving. Upper lobe infiltrates were found to be increasing. Patient was not started on any antibiotics. Blood cultures obtained on 05/18 did not show any growth. Did have a bout of diarrhea prior to arrival for which C diff toxin was obtained and found to be negative. Did not have any diarrheal episodes throughout hospitalization. Remained afebrile. Patient was wanting to be discharged home. Was stable at the time of my evaluation. Ambulatory O2 was checked. Patient did not qualify for any oxygen with ambulation and was not noted to have any exertional dyspnea. Advised to follow-up with primary care physician shortly after discharge as well as Cardiology. Was counseled multiple times on the day of discharge to return to hospital if any recurrence of respiratory distress or fever. Verbalized understanding. Laboratory workup on day of discharge showed a WBC of 5.2, hemoglobin of 8.1, hematocrit 26.2 and a platelet count of 167. sodium 139, potassium 3.6, chloride 108, bicarb 25, BUN of 22 and creatinine of 1.0. Physical Exam Narrative: EXAM NARRATIVE: General : alert, no distress HEENT : Grossly unremarkable CVS : NSR, systolic murmur CHEST : non-labored respiration ABD : non-distended Ext : Sig Bilateral LE lymphedema Discharge Data Data Completed and Pending: Completed Studies During Hospitalization Category Date Time Status CT angio chest PE protcl [id number] Urge nt Cat Scan 05/18/20 15:59 Completed XR chest 1V vaishali ble [id number] Stat Exams 05/18/20 14:25 Completed XR chest 2V* 7104 6 Routine Exams 05/21/20 07:00 Completed CV echo complete* [id number] Routine Ultrasound 05/19/20 07:00 Completed Pending at discharge Category Date Time Status Blood Culture Sta t Lab 05/18/20 19:05 Results Vitals: Last Vital Signs Temp 98.4 F 05/21/20 15:55 Pulse 90 05/21/20 15:55 Resp 18 05/21/20 15:55 BP 127/65 05/21/20 15:55 Pulse Ox 97 05/21/20 15:55 Discharge Plan Discharge Patient Disposition: Home Condition: Stable Prescriptions: New losartan 25 mg tablet 25 mg PO DAILY Qty: 30 RF: 0 Continued gabapentin 300 mg capsule 300 mg PO BEDTIME@22 RF: 0 levothyroxine 100 mcg capsule 100 mcg PO DAILY@06 RF: 0 montelukast [Singulair] 10 mg tablet 10 mg PO DAILY@22 RF: 0 duloxetine 60 mg capsule,delayed release(DR/EC) 60 mg PO DAILY@06 RF: 0 spironolactone 25 mg tablet 25 mg PO DAILY@06 RF: 0 albuterol sulfate 90 mcg/actuation HFA aerosol inhaler 2 puff INHALATION Q6H PRN (Reason: Shortness Of Breath) RF: 0 loratadine 10 mg capsule 10 mg PO DAILY@06 RF: 0 zonisamide 100 mg capsule See Rx Instructions .ROUTE .COMPLEX Qty: 540 RF: 1 baclofen 10 mg Tablet 10 mg PO TID PRN (Reason: Pain) RF: 0 nitroglycerin 0.4 mg tablet, sublingual 0.4 mg sublingual PRN PRN (Reason: CHEST PAINS) RF: 0 Eliquis 5 mg tablet 5 mg PO BID@, RF: 0 fluticasone prp-sod.chl,bicarb 50 mcg- 0.9 % Kit,Gary Suspension And Gary See Rx Instructions .ROUTE .COMPLEX RF: 0 Paxil 10 mg tablet 10 mg PO BEDTIME@22 RF: 0 Abilify 5 mg tablet 5 mg PO DAILY@22 RF: 0 Stool Softener 100 mg Capsule 100 mg PO DAILY PRN (Reason: Constipation) RF: 0 Crestor 40 mg Tablet 40 mg PO DAILY@ RF: 0 bupropion HCl 150 mg tablet sustained-release 12 hr 150 mg PO BID@ RF: 0 oxycodone-acetaminophen 5-325 mg Tablet 1 tab PO Q4H PRN (Reason: Pain) RF: 0 omeprazole 20 mg capsule,delayed release(DR/EC) 20 mg PO BID@ RF: 0 Discontinued phentermine 37.5 mg capsule 37.5 mg PO DAILY@ RF: 0 celecoxib [Celebrex] 200 mg capsule 200 mg PO DAILY@ RF: 0 potassium chloride 20 mEq tablet extended release 20 meq PO BID@ RF: 0 losartan [Cozaar] 50 mg tablet 50 mg PO DAILY@ RF: 0 propranolol 10 mg tablet 10 mg PO BID@ RF: 0 Discharge Orders: Discharge Order (Routine); Ordered 05/21/20 Ordered By: Enrrique Pitt Referrals: Liza Davila NP [Primary Care Provider] - 05/24/20 10:00 am Discharge Diet: Advance as tolerated Discharge Activity: Resume usual activity Patient Instructions: Acute Bronchitis (ED) Activity Restrictions/Additional Instructions: Advised to return to er if any recurrence of dyspnea,chest pain, fever or chills. Monitor daily weight. Contact PCP if rapidly increasing. 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
== END 2020-05-21 14:30 | disposition home or self-care (01) ==
LOC: ER 17:56 → MEDSURG 05-19 06:26
PROVIDERS: Internal Medicine; Admitting Provider Student in an Organized Health Care Education/Training Program; Emergency Provider Emergency Medicine; PCP Nurse Practitioner Family; Visit Provider Hospitalist
DX: R06.03 Acute respiratory distress (principal); J90 Pleural effusion, not elsewhere classified; I35.0 Nonrheumatic aortic (valve) stenosis; R19.7 Diarrhea, unspecified; R06.02 Shortness of breath; I20.0 Unstable angina; G47.30 Sleep apnea, unspecified; I10 Essential (primary) hypertension; E78.2 Mixed hyperlipidemia; E03.9 Hypothyroidism, unspecified; F41.9 Anxiety disorder, unspecified; Z86.718 Personal history of other venous thrombosis and embolism; R53.81 Other malaise
CPT/HCPCS: 12345; 36415; 71045; 71046; 71275; 80048; 80053; 83880; 84145; 84443; 84484; 85025; 87040; 87426; 87493; 87635; 93005; 93306; 94669; 96365; 96367; 96375; 97161; 97530; 99283; 99285; G0378; J0456; J0696; J1940; J2930; J7050; Q9967

== ENCOUNTER → 2020-06-17 12:21 | Outpatient (BNVA) | payer MEDICARE, MEDICAID, SELFPAY ==
[2020-04-23 13:43] VITALS: BP 124/66; BMI 56.5
== END ==
PROVIDERS: PCP Nurse Practitioner Family; Visit Provider Specialist
DX: G43.711 Chronic migraine without aura, intractable, with status migrainosus (principal); J44.9 Chronic obstructive pulmonary disease, unspecified; I35.0 Nonrheumatic aortic (valve) stenosis; I89.0 Lymphedema, not elsewhere classified; F32.9 Major depressive disorder, single episode, unspecified; F17.210 Nicotine dependence, cigarettes, uncomplicated
CPT/HCPCS: 64615; J0585

== ENCOUNTER 2020-07-02 22:55 | Inpatient (IN) | payer MEDICARE, MEDICAID, SELFPAY ==
[2020-04-23 13:43] VITALS: BP 124/66; BMI 56.5
[2020-07-02 22:57] VITALS: BP 165/85; PULSE 94; RESP 26; TEMP 36.4; O2SAT 94; BMI 58.8
--- NOTE | 2020-07-02 23:08 | XRR_ITS ---
PROCEDURE INFORMATION: Exam: XR Chest, 1 View Exam date and time: 07/02/2020 11:40 PM Age: 54 years old Clinical indication: Shortness of breath; Additional info: SOB TECHNIQUE: Imaging protocol: XR of the chest Views: 1 view. COMPARISON: CR XR chest 2V* [id number] 05/21/2020 7:02 AM FINDINGS: Lungs: Patchy bilateral mixed interstitial and airspace opacities suggestive of an infectious process. Pleural space: Trace bilateral pleural effusions. Heart/Mediastinum: Unremarkable. No cardiomegaly. Bones/joints: Unremarkable. XR/XR chest 1V portable [id number] IMPRESSION: 1. Patchy bilateral mixed interstitial and airspace opacities suggestive of an infectious process. 2. Trace bilateral pleural effusions.
--- NOTE | 2020-07-02 23:10 | ECG_ITS ---
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
--- NOTE | 2020-07-02 23:11 | ED_ITS ---
Documented by User: POP Summers 07/03/20 03:45 HPI - SOB/Dyspnea General: Chief Complaint: Shortness of Breath/Dyspnea Stated Complaint: DIFF BREATHING Time Seen by Provider: 07/02/20 23:08 Source: patient and EMS Mode of arrival: EMS Limitations: no limitations History of Present Illness: HPI Narrative: 54-year-old female patient presents to the emergency department with acute onset of shortness of breath. She normally has shortness of breath with exertion such as going to the bathroom or ambulating with her walker, she reports was at rest at time of dyspnea; tried to sleep when she felt pain in her right chest wall, near the axilla, She reports tried to go to sleep to see if it would improve but did not. She called EMS for evaluation; EMS reports O2 sat 93 to 94% on room air; glucose reading 108, she was placed on 2 L nasal cannula with increased O2 saturation 95 to 96%. She states since arrival to the ED, she is improved. She denies pain currently on the right chest but worsens with movement of her right shoulder. She appears with dyspnea upon exam. Reports nausea, denies vomiting; denies fever or chills, has history of chronic COPD with wheezing, reports cough is nonproductive. No change from baseline. Reports no change of lymphedema from baseline or increased swelling. MD elicited complaint: shortness of breath and chest pain (rt) Pertinent past history: COPD and other (chronic lymphedema BLE) Onset (ago): hour(s) (at 9 PM) Timing: improved Associated symptoms: Reports chest pain and nausea; Deny abdominal pain, chest congestion, diaphoresis, fever(s), lightheadedness or vomiting Treatment prior to arrival: oxygen Review of Systems General: Reports: 10 or more systems reviewed and unremarkable except in HPI and below Const: Denies: fever(s), chills or diaphoresis Eyes: Denies: change in vision, blurry vision, eye discomfort or eye redness ENMT: Denies: throat pain, dental pain or disequilibrium Card: Reports: chest pain, edema, swelling of feet/ankles (chronic lymphedema) and dyspnea on exertion (chronic); Denies: lightheadedness Resp: Reports: non-productive cough and wheezing; Denies: dyspnea, productive cough or chest congestion GI: Reports: nausea; Denies: abdominal pain, vomiting, diarrhea, constipation, bloating or GI cramping : Denies: difficulty voiding or dysuria Musc: Denies: neck pain or back pain Skin/Breast: Reports: erythema (chronic to the BLE with lymphedema); Denies: rash, pruritus, skin tenderness or changing lesions Neuro: Denies: headache(s), weakness in extremities or behavioral changes Psych: Denies: anxiety or depression Elvis/Lymph: Denies: easy bruising PFSH ED PFSH: Medical History Abnormal angiogram Aortic valve stenosis Atypical chest pain Chronic back pain COPD (chronic obstructive pulmonary disease) Generalized anxiety disorder Hyperlipidemia Hypertension Hypothyroidism Major depressive disorder, recurrent, moderate Obesity Obstructive pyelonephritis Osteoarthritis Sleep apnea Tobacco abuse Ureteral calculus, right Surgical History H/O cardiac catheterization H/O cystoscopy H/O lateral meniscus repair of left knee S/P thyroidectomy Family History Father Hypertension Hyperlipidemia Cancer Brother Hypertension CAD (coronary artery disease) Hyperlipidemia Sister Hypertension Cancer Grandfather Hypertension Diabetes Grandmother Hypertension CAD (coronary artery disease) Cancer Diabetes Mother CAD (coronary artery disease) Hypertension Hyperlipidemia Cancer Denies family history of Anesthesia complication Social History Smoking and tobacco status: current every day smoker cigarettes Years cigarettes smoked: 34 Quit status (tobacco): considering quitting Smoking risk assessment/counseling performed?: Yes Alcohol intake: current Alcohol intake frequency: holidays/special occasions only Desire information about alcohol rehabilitation?: No Counseling given: No Marital status: Single Current gender identity: Female Physical Exam Const: COMMON NORMALS: no acute distress, patient oriented x3, alert and well nourished EXAM LIMITATIONS: physical limitations (morbid obesity); no altered mental status GENERAL APPEARANCE: cooperative, comfortable, well kempt and well hydrated; not in distress, not anxious and not ill appearing NUTRITIONAL APPEARANCE: obese ORIENTATION/CONSCIOUSNESS: Yes awake, Yes oriented to person, Yes oriented to place and Yes oriented to time HENMT: COMMON NORMALS: normocephalic, atraumatic, Normal external nose present and moist oral mucous membranes HEAD & SCALP: normal to inspection, normocephalic and atraumatic NOSE: Normal external nose present Eye: COMMON NORMALS: Equal, round and reactive pupils present and EOMs intact bilaterally GENERAL EYE: appearance normal, both eyes and all related structures PUPIL: Yes Equal, round and reactive pupils present Neck/C-Spine: COMMON NORMALS: full ROM and no lymphadenopathy GENERAL: Yes normal visual inspection and Yes trachea midline CERVICAL SPINE: Yes cervical ROM normal Lymph: LYMPHATIC: no lymphadenopathy noted Chest: COMMONS NORMALS: normal inspection of the chest and normal palpation of entire chest wall CHEST: No localized rib tenderness with anteroposterior compression OTHER: Unable to reproduce pain to the right chest wall Resp: COMMON NORMALS: normal respiratory effort, No retractions and clear to auscultation bilaterally EFFORT & INSPECTION: Yes able to speak in complete sentences, Yes symmetric chest movement, No respiratory distress, No decreased respiratory effort, No Actively coughing and No audible wheezes AUSCULTATION: clear to auscultation bilaterally and diminished lung sounds bilateral in the lower lung garza Cardio: COMMON NORMALS: regular rate, regular rhythm, S1 normal heart sound present, S2 normal heart sound present and Peripheral pulses 2+ throughout RATE: regular rate RHYTHM: regular rhythm HEART SOUNDS: S1 normal heart sound present and S2 normal heart sound present PERIPHERAL PULSES: Peripheral pulses 2+ throughout GI: COMMON NORMALS: Normal to inspection, nondistended, normoactive bowel sounds present, Soft to palpation and non-tender INSPECTION: Yes normal to inspection, No Abdominal wall edema, Yes central obesity and No visible herniation PALPATION: Yes Soft to palpation : COMMON NORMALS: Yes no CVA tenderness BLADDER/KIDNEY EXAM: Yes no CVA tenderness Back/Pelvis: COMMON NORMALS: no CVA tenderness and thoracic and lumbar spine normal to inspection Extremity: COMMON NORMALS: normal to inspection and capillary refill normal GENERAL: Yes normal exam except as noted and Yes edema (3+-4+ lymphedema BLE - denies change from baseline) RIGHT UPPER EXTREMITY: Yes shoulder joint (scar noted anterior, proximal, not able to produce tenderness w/ palpation) Right shoulder: Yes Right shoulder joint neurovascular exam (distally intact) Neuro: COMMON NORMALS: patient oriented x3 and no focal motor deficits SENSORIUM/ORIENTATION: Yes alert, Yes oriented to person, Yes oriented to place and Yes oriented to time Psych: COMMON NORMALS: mental status grossly normal, Normal thought process present and cooperative APPEARANCE: Yes well kempt ACTIVITY/MOTOR BEHAVIOR: Yes appropriate eye contact THOUGHT PROCESS: Normal thought process present Skin: COMMON NORMALS: no petechiae and no mottling GENERAL SKIN EXAM: induration (with skin thickening anterior BLE d/t lymphedema) Course Consultations: Consultation #1: Dr Cortes -hospitalist; history of present illness, clinical findings as well as serology and radiology findings discussed, advised use of diuretics -COVID-19 PCR pending, agrees with need for admission and will follow. Time: 03:15 Vital Signs: Vital signs: Vital Signs Temperature 97.5 F L 07/02/20 22:57 Pulse Rate 77 07/03/20 02:50 Respiratory Rate 16 07/03/20 02:50 Blood Pressure 145/57 07/03/20 02:50 Pulse Oximetry 97 07/03/20 02:50 MDM - SOB/Dyspnea MDM Narrative: Medical decision making narrative: 54-year-old female patient presents to the emergency department with acute onset of dyspnea that started tonight. She also has experienced orthopnea, BNP noted to be elevated 1421, higher than baseline, CT scan of the chest revealed bilateral hemithoraces pneumonia; possibly due to COVID-19, EKG and troponin serial testing negative for acute ischemia, diuretics initiated here in the ED secondary to elevated BNP, she is remained sinus rhythm to the monitor, oxygen saturation ranging 93 to 96% on room air. Antibiotics initiated. Case discussed with Dr. Stella Sterling also discussed case with hospitalist who agrees for admission. Dexamethasone administered, she remains short of breath but improved. Lab Data: Labs: Lab Results 07/02/20 07/02/20 07/02/20 Range/Units 22:43 22:43 22:43 WBC 9.5 (4.0-10.0) 10^3/ uL RBC 3.81 L (4.1-5.3) 10^6/u L Hgb 9.4 L (11.5-15.3) g/dL Hct 30.3 L (37.0-47.0) % MCV 79.5 L (81-99) fL MCH 24.7 L (28.0-34.0) pg MCHC 31.0 (30.0-36.0) g/dL RDW 18.7 H (12.1-15.1) % Plt Count 261 (130-400) 10^3/c mm MPV 10.6 H (7.4-10.4) fL Neut % (Auto) 71.0 % Lymph % (Auto) 12.1 % Spencer % (Auto) 13.4 % Eos % (Auto) 2.7 % Baso % (Auto) 0.5 % Neut # (Auto) 6.71 (1.8-7.7) 10^3/u L Lymph # (Auto) 1.2 (0.8-4.8) 10^3/u L Spencer # (Auto) 1.3 H (0.2-0.9) 10^3/u L Eos # (Auto) 0.3 (0.0-0.8) 10^3/u L Baso # (Auto) 0.1 (0.0-0.1) 10^3/u L Nucleated RBC % (a uto) 0 % Nucleated RBCs # 0.0 /100WBC Specimen Type Sample Site ABG pH (7.35-7.45) ABG pCO2 (35-45) mmHg ABG pO2 (80.0-100.0) mmH g ABG HCO3 (22-26) mmol/L ABG O2 Saturation ABG Base Excess (-2.0-2.0) mmol/ L Mehdi Test A-a O2 Gradient (5-10) mmHg Hematocrit (37-47) % Hgb O2 Saturation (95-100) % Carboxyhemoglobin (0.4-20.1) %THgb Methemoglobin (0.4-1.5) % Total Hemoglobin (12-16) g/dL Ionized Calcium (1.1-1.4) mmol/L O2 Delivery Device O2 Liters/Min % Store Standards Associate ID Sodium 140 (136-145) mmol/L Potassium 3.9 (3.5-5.1) mmol/L Chloride 106 (98-107) mmol/L Carbon Dioxide 24 (22-29) mmol/L Anion Gap 13.9 (5-19) BUN 16 (6-20) mg/dL Creatinine 0.9 (0.5-0.9) mg/dL GFR Calculation 65.5 L (90-130) mL/min Glucose 89 (65-115) mg/dL Calculated Osmolal ity 291 (285-295) mOsm/k g Calcium 9.2 (8.5-10.5) mg/dL Total Bilirubin 0.9 (0.15-1.2) mg/dL AST 31 (0-32) U/L ALT 17 (0-33) U/L Alkaline Phosphata se 365 H (35-105) IU/L Troponin T Baselin e 16 H (0-10) ng/L Troponin T 120 Min [place] (0-10) ng/L Delta Troponin T (0-10) ABS# NT-Pro-B Natriuret Pep (0-125) pg/mL Total Protein 6.2 L (6.6-8.7) g/dL Albumin 3.0 L (3.5-5.2) g/dL Globulin 3.2 (1.3-4.6) g/dL Lipase 16 (13-60) U/L Procalcitonin (0-0.5) ng/mL SARS-CoV-2 Ag (Rap id) (Negative) 07/03/20 07/03/20 07/03/20 Range/Units 00:25 00:43 01:20 WBC (4.0-10.0) 10^3/ uL RBC (4.1-5.3) 10^6/u L Hgb (11.5-15.3) g/dL Hct (37.0-47.0) % MCV (81-99) fL MCH (28.0-34.0) pg MCHC (30.0-36.0) g/dL RDW (12.1-15.1) % Plt Count (130-400) 10^3/c mm MPV (7.4-10.4) fL Neut % (Auto) % Lymph % (Auto) % Spencer % (Auto) % Eos % (Auto) % Baso % (Auto) % Neut # (Auto) (1.8-7.7) 10^3/u L Lymph # (Auto) (0.8-4.8) 10^3/u L Spencer # (Auto) (0.2-0.9) 10^3/u L Eos # (Auto) (0.0-0.8) 10^3/u L Baso # (Auto) (0.0-0.1) 10^3/u L Nucleated RBC % (a uto) % Nucleated RBCs # /100WBC Specimen Type Arterial Sample Site Radial, right ABG pH 7.42 (7.35-7.45) ABG pCO2 35.5 (35-45) mmHg ABG pO2 64.5 L (80.0-100.0) mmH g ABG HCO3 23.2 (22-26) mmol/L ABG O2 Saturation 93.8 ABG Base Excess -1.0 (-2.0-2.0) mmol/ L Mehdi Test Pos A-a O2 Gradient 5.5 (5-10) mmHg Hematocrit 27.5 L (37-47) % Hgb O2 Saturation 91.2 L (95-100) % Carboxyhemoglobin 1.9 (0.4-20.1) %THgb Methemoglobin 0.9 (0.4-1.5) % Total Hemoglobin 9.0 L (12-16) g/dL Ionized Calcium 1.3 (1.1-1.4) mmol/L O2 Delivery Device Nc O2 Liters/Min 2.0 % Store Standards Associate ID Tj Sodium 139.0 (136-145) mmol/L Potassium 3.7 (3.5-5.1) mmol/L Chloride (98-107) mmol/L Carbon Dioxide (22-29) mmol/L Anion Gap (5-19) BUN (6-20) mg/dL Creatinine (0.5-0.9) mg/dL GFR Calculation (90-130) mL/min Glucose 93.0 (65-115) mg/dL Calculated Osmolal ity (285-295) mOsm/k g Calcium (8.5-10.5) mg/dL Total Bilirubin (0.15-1.2) mg/dL AST (0-32) U/L ALT (0-33) U/L Alkaline Phosphata se (35-105) IU/L Troponin T Baselin e (0-10) ng/L Troponin T 120 Min [place] 14.30 H (0-10) ng/L Delta Troponin T -1.70 L (0-10) ABS# NT-Pro-B Natriuret Pep (0-125) pg/mL Total Protein (6.6-8.7) g/dL Albumin (3.5-5.2) g/dL Globulin (1.3-4.6) g/dL Lipase (13-60) U/L Procalcitonin (0-0.5) ng/mL SARS-CoV-2 Ag (Rap id) Negative (Negative) 07/03/20 07/03/20 Range/Units 01:20 01:20 WBC (4.0-10.0) 10^3/ uL RBC (4.1-5.3) 10^6/u L Hgb (11.5-15.3) g/dL Hct (37.0-47.0) % MCV (81-99) fL MCH (28.0-34.0) pg MCHC (30.0-36.0) g/dL RDW (12.1-15.1) % Plt Count (130-400) 10^3/c mm MPV (7.4-10.4) fL Neut % (Auto) % Lymph % (Auto) % Spencer % (Auto) % Eos % (Auto) % Baso % (Auto) % Neut # (Auto) (1.8-7.7) 10^3/u L Lymph # (Auto) (0.8-4.8) 10^3/u L Spencer # (Auto) (0.2-0.9) 10^3/u L Eos # (Auto) (0.0-0.8) 10^3/u L Baso # (Auto) (0.0-0.1) 10^3/u L Nucleated RBC % (a uto) % Nucleated RBCs # /100WBC Specimen Type Sample Site ABG pH (7.35-7.45) ABG pCO2 (35-45) mmHg ABG pO2 (80.0-100.0) mmH g ABG HCO3 (22-26) mmol/L ABG O2 Saturation ABG Base Excess (-2.0-2.0) mmol/ L Mehdi Test A-a O2 Gradient (5-10) mmHg Hematocrit (37-47) % Hgb O2 Saturation (95-100) % Carboxyhemoglobin (0.4-20.1) %THgb Methemoglobin (0.4-1.5) % Total Hemoglobin (12-16) g/dL Ionized Calcium (1.1-1.4) mmol/L O2 Delivery Device O2 Liters/Min % Store Standards Associate ID Sodium (136-145) mmol/L Potassium (3.5-5.1) mmol/L Chloride (98-107) mmol/L Carbon Dioxide (22-29) mmol/L Anion Gap (5-19) BUN (6-20) mg/dL Creatinine (0.5-0.9) mg/dL GFR Calculation (90-130) mL/min Glucose (65-115) mg/dL Calculated Osmolal ity (285-295) mOsm/k g Calcium (8.5-10.5) mg/dL Total Bilirubin (0.15-1.2) mg/dL AST (0-32) U/L ALT (0-33) U/L Alkaline Phosphata se (35-105) IU/L Troponin T Baselin e (0-10) ng/L Troponin T 120 Min [place] (0-10) ng/L Delta Troponin T (0-10) ABS# NT-Pro-B Natriuret Pep 1421 H (0-125) pg/mL Total Protein (6.6-8.7) g/dL Albumin (3.5-5.2) g/dL Globulin (1.3-4.6) g/dL Lipase (13-60) U/L Procalcitonin 0.50 (0-0.5) ng/mL SARS-CoV-2 Ag (Rap id) (Negative) Imaging Data^: CXR: Radiologist's impression: [address] [id number] XRay Report Signed Patient: Maria G Merritt #: [id number] : 1965Acct#:[id number] Age/Sex: 54 / FADM Date: 07/02/20 Loc: [facility]/Bed: Attending Dr: Ordering Provider/Ordering MD: Fidelina Yost Date of Service: 07/02/20 Procedure(s): XR chest 1V portable [id number] Accession Number(s): [id number] Report Number: [id number] PROCEDURE INFORMATION: Exam: XR Chest, 1 View Exam date and time: 07/02/2020 11:40 PM Age: 54 years old Clinical indication: Shortness of breath; Additional info: SOB TECHNIQUE: Imaging protocol: XR of the chest Views: 1 view. COMPARISON: CR XR chest 2V* [id number] 05/21/2020 7:02 AM FINDINGS: Lungs: Patchy bilateral mixed interstitial and airspace opacities suggestive of an infectious process. Pleural space: Trace bilateral pleural effusions. Heart/Mediastinum: Unremarkable. No cardiomegaly. Bones/joints: Unremarkable. XR/XR chest 1V portable [id number] IMPRESSION: 1. Patchy bilateral mixed interstitial and airspace opacities suggestive of an infectious process. 2. Trace bilateral pleural effusions. Dictated By:Jorge Davis MD Signed By:Jroge Davis MDSigned Date/Time:07/03/2033 DD/ CT Chest: Radiologist's impression: [address] [address] [address] Scan Report Signed Patient: Maria G Merritt Unit #: [id number] : 1965 Age/Sex: 54 / F ADM Date: 07/02/20 Loc: ER Room/Bed: Attending Dr: Ordering Provider/Ordering MD: Fidelina Yost Date of Service: 07/03/20 Procedure(s): CT angio chest PE protcl [id number] Accession Number(s): [id number] Report Number: [id number] PROCEDURE INFORMATION: Exam: CT Angiography Chest With Contrast Exam date and time: 07/03/2020 1:48 AM Age: 54 years old Clinical indication: Dyspnea and shortness of breath; Patient HX: Dyspnea with SOB. Negative covid rapid swab. TECHNIQUE: Imaging protocol: Computed tomographic angiography of the chest with intravenous contrast. 3D rendering (Not supervised by radiologist): MIP and/or 3D reconstructed images were created by the technologist. Radiation optimization: All CT scans at this facility use at least one of these dose optimization techniques: automated exposure control; mA and/or kV adjustment per patient size (includes targeted exams where dose is matched to clinical indication); or iterative reconstruction. Contrast material: OMNI 350; Contrast volume: 151 ml; Contrast route: INTRAVENOUS (IV); COMPARISON: CT angio chest PE protcl [id number] 05/18/2020 4:26 PM RADIATION DOSE METRICS: Total DLP (mGy-cm): 1716.51 FINDINGS: Pulmonary arteries: Normal. No pulmonary emboli. Aorta: Unremarkable. No aortic aneurysm. No aortic dissection. Lungs: There are patchy diffuse ground-glass opacities present within the hemithoraces bilaterally, most prominently within the upper hemithoraces, findings that suggest a patchy bilateral interstitial pneumonia. These findings appear worse than that seen in previous CT examinations. Pleural space: There are areas of consolidation that superimposed over small bilateral pleural effusions. These appear stable compared with previous CT examinations dating from 12/14/2019. The right pleural effusion again exhibits a thickened enhancing wall suggestive of empyema. This appears stable compared with 05/18/2020 and 12/14/2019. Heart: Unremarkable. No cardiomegaly. No pericardial effusion. Lymph nodes: Unremarkable. No enlarged lymph nodes. Bones/joints: Unremarkable. No acute fracture. Soft tissues: Unremarkable. CT/CT angio chest PE protcl [id number] IMPRESSION: 1. There is no evidence for pulmonary emboli. 2. There are stable areas of consolidation that superimposed over bilateral pleural effusions. 3. The right pleural effusion exhibits thickened enhancing wall suggesting empyema. This appears stable compared with prior CT examinations dating from 12/14/2019. 4. There are new developing patchy diffuse ground-glass opacities most prominently within the upper hemithoraces, findings suggesting a bilateral interstitial pneumonia. Radiation Dose CTDIVOL = (mGy): DLP = 1716.51 (mGy-cm) Dictated By: Yared Hernandez MD Signed By: Yared Hernandez MD Signed Date/Time: 07/03/20309 DD/ 0309 EKG Data^: EKG 1: EKG Interpretation Date: 07/02/20 EKG interpretation time: 23:25 Prior EKG tracings: available for review Computer Generated Interpretation: Ventricular rate 85, sinus rhythm, normal ECG EKG 2: EKG Interpretation Date: 07/03/20 EKG interpretation time: 01:28 Prior EKG tracings: available for review Other EKG Comments: Sinus rhythm with frequent VPCs, abnormal ECG, ventricular rate 98 Discharge Plan Discharge Patient Disposition: Admitted As Inpatient Admit Provider: Aniyah Cortes Clinical Impression: Acute dyspnea Pneumonia Qualifiers: Pneumonia type: due to unspecified organism Laterality: bilateral Lung l ocation: upper lobe of lung Qualified Code(s): J18.9 - Pneumonia, unspecified organism Condition: Stable Coding Level of Care Code ED 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 Documented by User: Chauncey Douglas MD 07/03/20 03:58 HPI - SOB/Dyspnea General: Chief Complaint: Shortness of Breath/Dyspnea Stated Complaint: DIFF BREATHING Time Seen by Provider: 07/02/20 23:08 PFSH ED PFSH: Medical History Abnormal angiogram Aortic valve stenosis Atypical chest pain Chronic back pain COPD (chronic obstructive pulmonary disease) Generalized anxiety disorder Hyperlipidemia Hypertension Hypothyroidism Major depressive disorder, recurrent, moderate Obesity Obstructive pyelonephritis Osteoarthritis Sleep apnea Tobacco abuse Ureteral calculus, right Surgical History H/O cardiac catheterization H/O cystoscopy H/O lateral meniscus repair of left knee S/P thyroidectomy Family History Father Hypertension Hyperlipidemia Cancer Brother Hypertension CAD (coronary artery disease) Hyperlipidemia Sister Hypertension Cancer Grandfather Hypertension Diabetes Grandmother Hypertension CAD (coronary artery disease) Cancer Diabetes Mother CAD (coronary artery disease) Hypertension Hyperlipidemia Cancer Denies family history of Anesthesia complication Social History Smoking and tobacco status: current every day smoker cigarettes Years cigarettes smoked: 34 Quit status (tobacco): considering quitting Smoking risk assessment/counseling performed?: Yes Alcohol intake: current Alcohol intake frequency: holidays/special occasions only Desire information about alcohol rehabilitation?: No Counseling given: No Marital status: Single Current gender identity: Female Course Vital Signs: Vital signs: Vital Signs Temperature 97.5 F L 07/02/20 22:57 Pulse Rate 77 07/03/20 02:50 Respiratory Rate 16 07/03/20 02:50 Blood Pressure 145/57 07/03/20 02:50 Pulse Oximetry 97 07/03/20 02:50 MDM - SOB/Dyspnea MDM Narrative: Medical decision making narrative: Patient presents here with bilateral pneumonia versus failure. I spoke to hospitalist and will admit. I saw patient with midlevel and agree with her history and physical. Patient's been stable while here. Lab Data: Labs: Lab Results 07/02/20 07/02/20 07/02/20 Range/Units 22:43 22:43 22:43 WBC 9.5 (4.0-10.0) 10^3/ uL RBC 3.81 L (4.1-5.3) 10^6/u L Hgb 9.4 L (11.5-15.3) g/dL Hct 30.3 L (37.0-47.0) % MCV 79.5 L (81-99) fL MCH 24.7 L (28.0-34.0) pg MCHC 31.0 (30.0-36.0) g/dL RDW 18.7 H (12.1-15.1) % Plt Count 261 (130-400) 10^3/c mm MPV 10.6 H (7.4-10.4) fL Neut % (Auto) 71.0 % Lymph % (Auto) 12.1 % Spencer % (Auto) 13.4 % Eos % (Auto) 2.7 % Baso % (Auto) 0.5 % Neut # (Auto) 6.71 (1.8-7.7) 10^3/u L Lymph # (Auto) 1.2 (0.8-4.8) 10^3/u L Spencer # (Auto) 1.3 H (0.2-0.9) 10^3/u L Eos # (Auto) 0.3 (0.0-0.8) 10^3/u L Baso # (Auto) 0.1 (0.0-0.1) 10^3/u L Nucleated RBC % (a uto) 0 % Nucleated RBCs # 0.0 /100WBC Specimen Type Sample Site ABG pH (7.35-7.45) ABG pCO2 (35-45) mmHg ABG pO2 (80.0-100.0) mmH g ABG HCO3 (22-26) mmol/L ABG O2 Saturation ABG Base Excess (-2.0-2.0) mmol/ L Mehdi Test A-a O2 Gradient (5-10) mmHg Hematocrit (37-47) % Hgb O2 Saturation (95-100) % Carboxyhemoglobin (0.4-20.1) %THgb Methemoglobin (0.4-1.5) % Total Hemoglobin (12-16) g/dL Ionized Calcium (1.1-1.4) mmol/L O2 Delivery Device O2 Liters/Min % Store Standards Associate ID Sodium 140 (136-145) mmol/L Potassium 3.9 (3.5-5.1) mmol/L Chloride 106 (98-107) mmol/L Carbon Dioxide 24 (22-29) mmol/L Anion Gap 13.9 (5-19) BUN 16 (6-20) mg/dL Creatinine 0.9 (0.5-0.9) mg/dL GFR Calculation 65.5 L (90-130) mL/min Glucose 89 (65-115) mg/dL Calculated Osmolal ity 291 (285-295) mOsm/k g Calcium 9.2 (8.5-10.5) mg/dL Total Bilirubin 0.9 (0.15-1.2) mg/dL AST 31 (0-32) U/L ALT 17 (0-33) U/L Alkaline Phosphata se 365 H (35-105) IU/L Troponin T Baselin e 16 H (0-10) ng/L Troponin T 120 Min [place] (0-10) ng/L Delta Troponin T (0-10) ABS# NT-Pro-B Natriuret Pep (0-125) pg/mL Total Protein 6.2 L (6.6-8.7) g/dL Albumin 3.0 L (3.5-5.2) g/dL Globulin 3.2 (1.3-4.6) g/dL Lipase 16 (13-60) U/L Procalcitonin (0-0.5) ng/mL SARS-CoV-2 Ag (Rap id) (Negative) 07/03/20 07/03/20 07/03/20 Range/Units 00:25 00:43 01:20 WBC (4.0-10.0) 10^3/ uL RBC (4.1-5.3) 10^6/u L Hgb (11.5-15.3) g/dL Hct (37.0-47.0) % MCV (81-99) fL MCH (28.0-34.0) pg MCHC (30.0-36.0) g/dL RDW (12.1-15.1) % Plt Count (130-400) 10^3/c mm MPV (7.4-10.4) fL Neut % (Auto) % Lymph % (Auto) % Spencer % (Auto) % Eos % (Auto) % Baso % (Auto) % Neut # (Auto) (1.8-7.7) 10^3/u L Lymph # (Auto) (0.8-4.8) 10^3/u L Spencer # (Auto) (0.2-0.9) 10^3/u L Eos # (Auto) (0.0-0.8) 10^3/u L Baso # (Auto) (0.0-0.1) 10^3/u L Nucleated RBC % (a uto) % Nucleated RBCs # /100WBC Specimen Type Arterial Sample Site Radial, right ABG pH 7.42 (7.35-7.45) ABG pCO2 35.5 (35-45) mmHg ABG pO2 64.5 L (80.0-100.0) mmH g ABG HCO3 23.2 (22-26) mmol/L ABG O2 Saturation 93.8 ABG Base Excess -1.0 (-2.0-2.0) mmol/ L Mehdi Test Pos A-a O2 Gradient 5.5 (5-10) mmHg Hematocrit 27.5 L (37-47) % Hgb O2 Saturation 91.2 L (95-100) % Carboxyhemoglobin 1.9 (0.4-20.1) %THgb Methemoglobin 0.9 (0.4-1.5) % Total Hemoglobin 9.0 L (12-16) g/dL Ionized Calcium 1.3 (1.1-1.4) mmol/L O2 Delivery Device Nc O2 Liters/Min 2.0 % Store Standards Associate ID Tj Sodium 139.0 (136-145) mmol/L Potassium 3.7 (3.5-5.1) mmol/L Chloride (98-107) mmol/L Carbon Dioxide (22-29) mmol/L Anion Gap (5-19) BUN (6-20) mg/dL Creatinine (0.5-0.9) mg/dL GFR Calculation (90-130) mL/min Glucose 93.0 (65-115) mg/dL Calculated Osmolal ity (285-295) mOsm/k g Calcium (8.5-10.5) mg/dL Total Bilirubin (0.15-1.2) mg/dL AST (0-32) U/L ALT (0-33) U/L Alkaline Phosphata se (35-105) IU/L Troponin T Baselin e (0-10) ng/L Troponin T 120 Min [place] 14.30 H (0-10) ng/L Delta Troponin T -1.70 L (0-10) ABS# NT-Pro-B Natriuret Pep (0-125) pg/mL Total Protein (6.6-8.7) g/dL Albumin (3.5-5.2) g/dL Globulin (1.3-4.6) g/dL Lipase (13-60) U/L Procalcitonin (0-0.5) ng/mL SARS-CoV-2 Ag (Rap id) Negative (Negative) 07/03/20 07/03/20 Range/Units 01:20 01:20 WBC (4.0-10.0) 10^3/ uL RBC (4.1-5.3) 10^6/u L Hgb (11.5-15.3) g/dL Hct (37.0-47.0) % MCV (81-99) fL MCH (28.0-34.0) pg MCHC (30.0-36.0) g/dL RDW (12.1-15.1) % Plt Count (130-400) 10^3/c mm MPV (7.4-10.4) fL Neut % (Auto) % Lymph % (Auto) % Spencer % (Auto) % Eos % (Auto) % Baso % (Auto) % Neut # (Auto) (1.8-7.7) 10^3/u L Lymph # (Auto) (0.8-4.8) 10^3/u L Spencer # (Auto) (0.2-0.9) 10^3/u L Eos # (Auto) (0.0-0.8) 10^3/u L Baso # (Auto) (0.0-0.1) 10^3/u L Nucleated RBC % (a uto) % Nucleated RBCs # /100WBC Specimen Type Sample Site ABG pH (7.35-7.45) ABG pCO2 (35-45) mmHg ABG pO2 (80.0-100.0) mmH g ABG HCO3 (22-26) mmol/L ABG O2 Saturation ABG Base Excess (-2.0-2.0) mmol/ L Mehdi Test A-a O2 Gradient (5-10) mmHg Hematocrit (37-47) % Hgb O2 Saturation (95-100) % Carboxyhemoglobin (0.4-20.1) %THgb Methemoglobin (0.4-1.5) % Total Hemoglobin (12-16) g/dL Ionized Calcium (1.1-1.4) mmol/L O2 Delivery Device O2 Liters/Min % Store Standards Associate ID Sodium (136-145) mmol/L Potassium (3.5-5.1) mmol/L Chloride (98-107) mmol/L Carbon Dioxide (22-29) mmol/L Anion Gap (5-19) BUN (6-20) mg/dL Creatinine (0.5-0.9) mg/dL GFR Calculation (90-130) mL/min Glucose (65-115) mg/dL Calculated Osmolal ity (285-295) mOsm/k g Calcium (8.5-10.5) mg/dL Total Bilirubin (0.15-1.2) mg/dL AST (0-32) U/L ALT (0-33) U/L Alkaline Phosphata se (35-105) IU/L Troponin T Baselin e (0-10) ng/L Troponin T 120 Min [place] (0-10) ng/L Delta Troponin T (0-10) ABS# NT-Pro-B Natriuret Pep 1421 H (0-125) pg/mL Total Protein (6.6-8.7) g/dL Albumin (3.5-5.2) g/dL Globulin (1.3-4.6) g/dL Lipase (13-60) U/L Procalcitonin 0.50 (0-0.5) ng/mL SARS-CoV-2 Ag (Rap id) (Negative) Discharge Plan Discharge Patient Disposition: Admitted As Inpatient Admit Provider: Aniyah Cortes Clinical Impression: Acute dyspnea Pneumonia Qualifiers: Pneumonia type: due to unspecified organism Laterality: bilateral Lung location: upper lobe of lung Qualified Code(s): J18.9 - Pneumonia, unspecified organism Condition: Stable Coding Level of Care Code ED 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
--- NOTE | 2020-07-02 23:13 | XRR_ITS ---
PROCEDURE INFORMATION: Exam: XR Right Shoulder Exam date and time: 07/02/2020 11:40 PM Age: 54 years old Clinical indication: Pain; Right; Prior surgery; Surgery type: Shoulder arthroscopy; Additional info: RT shoulder pain TECHNIQUE: Imaging protocol: XR Right shoulder. Views: 2 or more views. COMPARISON: No relevant prior studies available. FINDINGS: Bones/joints: Normal. Lungs: Right lung airspace opacities may reflect an infectious process. Soft tissues: Normal. XR/XR shoulder RT min 2V* [id number] IMPRESSION: 1. Negative for bony abnormality. 2. Right lung airspace opacities may reflect an infectious process.
[2020-07-02 23:22] LABS: Basophils # 0.1 10^3/uL (0.0-0.1); Basophils % 0.5 %; Eosinophils # 0.3 10^3/uL (0.0-0.8); Eosinophils % 2.7 %; Hematocrit 30.3 % (37.0-47.0); Hemoglobin 9.4 g/dL (11.5-15.3); Lymphocytes # 1.2 10^3/uL (0.8-4.8); Lymphocytes % 12.1 %; Mean Corpuscular Hemoglobin 24.7 pg (28.0-34.0); Mean Corpuscular Volume 79.5 fL (81-99); Mean Platelet Volume 10.6 fL (7.4-10.4); Monocytes # 1.3 10^3/uL (0.2-0.9); Monocytes % 13.4 %; Neutrophils # 6.71 10^3/uL (1.8-7.7); Nucleated Red Blood Cells % 0 %; Platelet Count 261 10^3/cmm (130-400); Red Blood Count 3.81 10^6/uL (4.1-5.3); Red Cell Distribution Width 18.7 % (12.1-15.1); White Blood Count 9.5 10^3/uL (4.0-10.0)
[2020-07-02 23:29] LABS: Alanine Aminotransferase 17 U/L (0-33); Alkaline Phosphatase 365 IU/L (35-105); Anion Gap 13.9 (5-19); Aspartate Amino Transferase 31 U/L (0-32); Blood Urea Nitrogen 16 mg/dL (6-20); Calcium 9.2 mg/dL (8.5-10.5); Carbon Dioxide 24 mmol/L (22-29); Chloride 106 mmol/L (98-107); Globulin 3.2 g/dL (1.3-4.6); Glomerular Filtration Rate 65.5 mL/min (90-130); Glucose 89 mg/dL (65-115); Lipase 16 U/L (13-60); Osmolality Calculated 291 mOsm/kg (285-295); Potassium 3.9 mmol/L (3.5-5.1); Sodium 140 mmol/L (136-145); Total Bilirubin 0.9 mg/dL (0.15-1.2); Total Protein 6.2 g/dL (6.6-8.7)
[2020-07-02 23:32] VITALS: BP 136/59; PULSE 86; RESP 19; O2SAT 95
[2020-07-02 23:32] LABS: Troponin(5th) Baseline 16 ng/L (0-10)
[2020-07-03] VITALS (15 sets, daily range): BP systolic 97–145; BP diastolic 43–89; PULSE 67–90; RESP 16–20; TEMP 36.5–37.1; O2SAT 95–99
[2020-07-03 00:40] LABS: ABG PCO2 35.5 mmHg (35-45); ABG PH Result 7.42 (7.35-7.45); Alveolar-Arterial Oxygen Gradi 5.5 mmHg (5-10); Arterial Blood Gas Hematocrit 27.5 % (37-47); Blood Gas Allen Test Pos; Blood Gas Sample Site Radial, right; Blood Gas Sample Type Arterial; Carboxyhemoglobin 1.9 %THgb (0.4-20.1); HCO3 ABG 23.2 mmol/L (22-26); HGB O2 Sat 91.2 % (95-100); Ionized Calcium Level - ABG 1.3 mmol/L (1.1-1.4); Methemoglobin 0.9 % (0.4-1.5); Oxygen Device NC; Oxygen Saturation ABG 93.8; PO2 ABG 64.5 mmHg (80.0-100.0); Potassium Level - ABG 3.7 mmol/L (3.5-5.0)
[2020-07-03] MEDS: dexamethasone 4 mg/mL INJ 6 MG IVP (00:44)
--- NOTE | 2020-07-03 01:10 | ECG_ITS ---
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
[2020-07-03 01:17] LABS: SARS Covid-2 Antigen Negative (Negative)
--- NOTE | 2020-07-03 01:45 | CTR_ITS ---
PROCEDURE INFORMATION: Exam: CT Angiography Chest With Contrast Exam date and time: 07/03/2020 1:48 AM Age: 54 years old Clinical indication: Dyspnea and shortness of breath; Patient HX: Dyspnea with SOB. Negative covid rapid swab. TECHNIQUE: Imaging protocol: Computed tomographic angiography of the chest with intravenous contrast. 3D rendering (Not supervised by radiologist): MIP and/or 3D reconstructed images were created by the technologist. Radiation optimization: All CT scans at this facility use at least one of these dose optimization techniques: automated exposure control; mA and/or kV adjustment per patient size (includes targeted exams where dose is matched to clinical indication); or iterative reconstruction. Contrast material: OMNI 350; Contrast volume: 151 ml; Contrast route: INTRAVENOUS (IV); COMPARISON: CT angio chest PE protcl [id number] 05/18/2020 4:26 PM RADIATION DOSE METRICS: Total DLP (mGy-cm): 1716.51 FINDINGS: Pulmonary arteries: Normal. No pulmonary emboli. Aorta: Unremarkable. No aortic aneurysm. No aortic dissection. Lungs: There are patchy diffuse ground-glass opacities present within the hemithoraces bilaterally, most prominently within the upper hemithoraces, findings that suggest a patchy bilateral interstitial pneumonia. These findings appear worse than that seen in previous CT examinations. Pleural space: There are areas of consolidation that superimposed over small bilateral pleural effusions. These appear stable compared with previous CT examinations dating from 12/14/2019. The right pleural effusion again exhibits a thickened enhancing wall suggestive of empyema. This appears stable compared with 05/18/2020 and 12/14/2019. Heart: Unremarkable. No cardiomegaly. No pericardial effusion. Lymph nodes: Unremarkable. No enlarged lymph nodes. Bones/joints: Unremarkable. No acute fracture. Soft tissues: Unremarkable. CT/CT angio chest PE protcl [id number] IMPRESSION: 1. There is no evidence for pulmonary emboli. 2. There are stable areas of consolidation that superimposed over bilateral pleural effusions. 3. The right pleural effusion exhibits thickened enhancing wall suggesting empyema. This appears stable compared with prior CT examinations dating from 12/14/2019. 4. There are new developing patchy diffuse ground-glass opacities most prominently within the upper hemithoraces, findings suggesting a bilateral interstitial pneumonia. Radiation Dose CTDIVOL = (mGy): DLP = 1716.51 (mGy-cm)
[2020-07-03] MEDS: iohexol 350 mg/mL 100 mL Btl IV ×2 (02:02→02:20)
[2020-07-03 02:36] LABS: NT Pro B Type Natriuretic Pept 1421 pg/mL (0-125)
--- NOTE | 2020-07-03 02:51 | PC.NURSE ---
Put patient on 2Ls nasal cannula due to oxygen dropping to 87%.
--- NOTE | 2020-07-03 03:51 | P.HP_ITS ---
Providers/Chief Complaint Primary Care Provider: Liza Davila NP Chief Complaint: DIFF BREATHING History of Present Illness Maria G Merritt is a 54 year old female who has history of preserved ejection fraction heart failure, chronic anticoagulation for DVT, on Eliquis since 2018, moderate aortic stenosis, COPD, bilateral lower extremity lymphedema, presented today with chief complaint of shortness of breath. Patient is stating that mostly she stays in a recliner, she is not able to lay flat because of orthopnea and PND, she is not sure if she takes any diuretics, she relies on home health service for her medications. Today around 6 PM when she was in a recliner she started experiencing shortness of breath at rest which was associated with chest discomfort as well, her chest discomfort was reproducible she is able to pi npoint area of chest discomfort, it would get aggravated with deep inspiration and palpation. She has not noticed fever, productive cough, vomiting, diarrhea. She is able to ambulate using a walker. Diagnosis in the ER revealed CHF exacerbation, BNP 1400, CT chest rule out PE however showing bilateral groundglass opacities, interstitial prominence with concerning interstitial pneumonia findings chronic bilateral pleural effusion, I have seen her previously as well where a CT findings are consistent with organizing pneumonia versus pleural thickening Covid antigen was negative at that time, on this visit we have sent PCR 1 more time because of her CT findings, Covid antigen negative, In the ER she has been saturating well on room air, no tachycardia or active chest pain On her previous visit she did not require oxygenation on discharge C. difficile was ruled out Covid antigen was negative no bacteremia was noted, phentermine celecoxib propanolol was discontinued secondary to her drowsiness, she was not discharged on diuretics secondary to moderate aortic stenosis Review of Systems Const: Reports: body aches, change in appetite, fatigue and malaise; Denies: fever(s) or chills Eyes: Denies: change in vision ENMT: Denies: throat pain Card: Reports: chest pain, swelling of feet/ankles, lightheadedness, dyspnea on exertion and orthopnea Resp: Reports: dyspnea, non-productive cough and pain on inspiration GI: Denies: abdominal pain : Denies: flank pain Musc: Reports: extremity swelling; Denies: neck pain Skin/Breast: Reports: lesions Neuro: Denies: headache(s) Psych: Denies: anxiety Endo: Denies: polyuria Elvis/Lymph: Denies: easy bruising All/Imm: Denies: urticaria Medications/Allergies Home Medications Medication Instructions Recorded Confirmed Last Taken Type gabapentin 300 mg capsule 300 mg PO BEDTIME@ cap 06/17/19 06/17/20 05/17/20 History levothyroxine 100 mcg capsule 100 mcg PO DAILY@06/17/19 06/17/20 05/18/20 History montelukast 10 mg tablet 10 mg PO DAILY@06/17/19 06/17/20 05/17/20 History Eliquis 5 mg PO BID@10/07/19 06/17/20 05/18/20 History baclofen 10 mg PO TID PRN 10/07/19 06/17/20 05/18/20 History fluticasone prp-sod.chl,bicarb See Rx Instructions .ROUTE .COMPLEX 10/07/19 06/17/20 01/21/20 History nitroglycerin 0.4 mg SUBLINGUAL PRN PRN 10/07/19 06/17/20 Unknown History bupropion HCl 150 mg PO BID@01/21/20 06/17/20 05/18/20 History omeprazole 20 mg PO BID@01/21/20 06/17/20 05/18/20 History oxycodone-acetaminophen 1 tab PO Q4H PRN 01/21/20 06/17/20 05/18/20 History albuterol sulfate 90 mcg/actuation 2 puff INHALATION Q6H PRN 02/05/20 06/17/20 05/18/20 History aerosol inhaler loratadine 10 mg capsule 10 mg PO DAILY@02/05/20 06/17/20 05/18/20 History spironolactone 25 mg tablet 25 mg PO DAILY@02/18/20 06/17/20 05/18/20 History zonisamide 100 mg capsule See Rx Instructions .ROUTE 03/23/20 06/17/20 05/17/20 Rx .COMPLEX #540 cap duloxetine 60 mg capsule,delayed 60 mg PO DAILY@ cap 05/03/20 06/17/20 Unknown History release Abilify 5 mg PO DAILY@05/18/20 06/17/20 05/17/20 History Crestor 40 mg PO DAILY@22 05/18/20 06/17/20 05/17/20 History Paxil 10 mg PO BEDTIME@22 05/18/20 06/17/20 05/17/20 History Stool Softener 100 mg PO DAILY PRN 05/18/20 06/17/20 Unknown History losartan 25 mg tablet 25 mg PO DAILY #90 tab 06/22/20 Unknown Rx Allergies Allergy/AdvReac Type Severity Reaction Status Date / Time adhesive tape Allergy Unknown Verified 06/17/20 12:25 influenza virus vaccine qs Allergy Unknown Verified 06/17/20 12:25 5080-9610 (36 mos, up) [From Single Use EZ Flu] Flu Allergy Unknown unknown Uncoded 06/17/20 12:25 PFSH Acute PFSH: Medical History Abnormal angiogram Aortic valve stenosis Atypical chest pain Chronic back pain COPD (chronic obstructive pulmonary disease) Generalized anxiety disorder Hyperlipidemia Hypertension Hypothyroidism Major depressive disorder, recurrent, moderate Obesity Obstructive pyelonephritis Osteoarthritis Sleep apnea Tobacco abuse Ureteral calculus, right Surgical History H/O cardiac catheterization H/O cystoscopy H/O lateral meniscus repair of left knee S/P thyroidectomy Family History Father Hypertension Hyperlipidemia Cancer Brother Hypertension CAD (coronary artery disease) Hyperlipidemia Sister Hypertension Cancer Grandfather Hypertension Diabetes Grandmother Hypertension CAD (coronary artery disease) Cancer Diabetes Mother CAD (coronary artery disease) Hypertension Hyperlipidemia Cancer Denies family history of Anesthesia complication Social History Smoking and tobacco status: current every day smoker cigarettes Years cigarettes smoked: 34 Quit status (tobacco): considering quitting Smoking risk assessment/counseling performed?: Yes Alcohol intake: current Alcohol intake frequency: holidays/special occasions only Desire information about alcohol rehabilitation?: No Counseling given: No Marital status: Single Current gender identity: Female Vitals/I&O/Wt Last Vital Signs Temp 97.5 F L 07/02/20 22:57 Pulse 77 07/03/20 02:50 Resp 16 07/03/20 02:50 BP 145/57 07/03/20 02:50 Pulse Ox 97 07/03/20 02:50 Weight last 48 hrs Weight 165.561 kg Physical Exam Narrative: EXAM NARRATIVE: Middle-age female morbidly obese Bilateral lower extremity edema lymphedema No active cellulitis S1, S2 sinus rhythm with systolic murmur No acute respite distress She is currently saturating well on room air Bilateral breath sounds with adventitious rhonchi and crackles Abdomen soft distended central obesity nontender no signs of peritonitis Patient seems drowsy however no neurological deficit EOMI, PERRLA GCS 15 Data : 07/02/20 22:43 07/02/20 22:43 Micro: Microbiology 07/03/20 03:35 Blood Culture - Preliminary Blood SPECIMEN COLLECTED A&P Assessment and plan (1) Atypical chest pain: Status: Acute (2) Aortic valve stenosis: Status: Acute Qualifiers: Cardiac valve disease etiology: nonrheumatic Qualified Code(s): I35.0 - Nonrheumatic aortic (valve) stenosis (3) Acute dyspnea: Status: Acute Additional A&P Information Acute on chronic shortness of breath Relative hypoxia present on ABG, However patient is saturating well on room air CTA chest rule out PE Groundglass opacities seen with interstitial prominence COVID-19 negative, PCR sent will start on Decadron High BNP view clinical signs of fluid overload Procalcitonin unremarkable I would not add antibiotics at this point Moderate aortic valve stenosis I do believe her symptoms are secondary to underlying aortic valve stenosis that is why she gets short of breath and experience chest pain I would only use low-dose Lasix for now considering active CHF exacerbation Kindly consider cardiology evaluation for her symptomatic aortic valve stenosis Diastolic congestive heart failure exacerbation Patient has not been on any diuretics because of valvular disease Would use low-dose Lasix No active infarctive or ischemic changes on EKG, troponin with negative delta PE has been ruled out She has chronic pleural effusion with fibrosis and organizing pleural peel DVT/PE history in the past She takes Eliquis 5 mg twice a day which I would continue for now Hypothyroidism: Continue levothyroxine 100 mcg Full code Cardiac diet DVT prophylaxis Eliquis Attestations Medical Necessity Statement*: Anticipating discharge in less than 48 hours currently need judicious diuresis, need to rule out Covid 19 pneumonia because of interstitial bilateral prominence with groundglass opacities Time Spent in Patient Care: (>than 50% of time spent in counselling and/or direct pt care on unit) . 40mins Coding Level of Care Code Acute Wild Life Photographer for Chg Fwd Diagnoses Atypical chest pain R07.89 Aortic valve stenosis I35.0 Cardiac valve disease etiology: nonrheumatic Acute dyspnea R06.00
[2020-07-03] MEDS: cefTRIAXone 1,000 MG in sodium chloride 0.9% (plus) 50 ML 100 MG IV (04:02)
[2020-07-03] MEDS: bumetanide 1 mg Tablet PO (04:03)
--- NOTE | 2020-07-03 05:10 | ECG_ITS ---
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
[2020-07-03] MEDS: buPROPion SR (12 HR) 150 mg Tablet PO ×2 (06:24→21:32)
[2020-07-03] MEDS: pantoprazole DR 40 mg Tablet PO ×2 (06:24→21:33)
[2020-07-03] MEDS: apixaban 5 mg Tablet PO ×2 (06:24→21:32)
[2020-07-03] MEDS: duloxetine 60 mg Capsule PO (06:24)
[2020-07-03] MEDS: spironolactone 25 mg Tablet PO (06:24)
[2020-07-03] MEDS: levothyroxine 100 mcg Tablet PO (06:24)
[2020-07-03] MEDS: dexamethasone 4 mg Tablet 6 MG PO (09:55)
[2020-07-03] MEDS: losartan 50 mg Tablet 25 MG PO (09:56)
[2020-07-03] MEDS: FUROsemide 40 mg Tablet PO ×2 (09:56→14:47)
--- NOTE | 2020-07-03 10:12 | USCV_ITS ---
Maria G Merritt Age: 54 Gender: F : 1965 Exam Date: 07/03/2020 11:40 Ordering Phys: Eliecer Sánchez MD Technologist: Benson Plummer [place] [facility] [place]: BP: 134 / 76 HR: 77 Rhythm: Sinus Technical Quality: Fair MEASUREMENTS (Male / Female) Normal Values 2D ECHO LV Diastolic Diameter PLAX 4.3 cm 4.2 - 5.9 / 3.9 - 5.3 cm LV Systolic Diameter PLAX 3.2 cm IVS Diastolic Thickness 1.0 cm 0.6 - 1.0 / 0.6 - 0.9 cm IVS Systolic Thickness 1.5 cm LVPW Diastolic Thickness 1.2 cm 0.6 - 1.0 / 0.6 - 0.9 cm LVPW Systolic Thickness 1.4 cm LVOT Diameter 2.0 cm LV Ejection Fraction 2D Teich 37.5 % LV Ejection Fraction MOD 2C 64.7 % LV Ejection Fraction 2C AL 63.7 % LA Diameter 5.2 cm Aorta at Sinotubular Diameter 2.0 cm M-MODE LV Diastolic Diameter MM 5.0 cm 4.2 - 5.9 / 3.9 - 5.3 cm LV Systolic Diameter MM 3.5 cm LV Ejection Fraction MM Teich 58.9 % IVS Diastolic Thickness MM 1.3 cm 0.6 - 1.0 / 0.6 - 0.9 cm IVS Systolic Thickness MM 1.8 cm LVPW Diastolic Thickness MM 1.3 cm 0.6 - 1.0 / 0.6 - 0.9 cm LVPW Systolic Thickness MM 2.0 cm RV Diastolic Diameter MM 1.8 cm Aortic Annulus Diameter 3.4 cm LA Ao Ratio MM 1.7 MV E Point Septal Separation 1.0 cm DOPPLER AV Peak Velocity 390.0 cm/s LVOT Peak Velocity 116.0 cm/s AV Area Cont Eq vti 1.0 cm squared AV Area Cont Eq pk 1.0 cm squared MV Area PHT 5.0 cm squared Mitral E to A Ratio 1.0 MV E' Velocity 61.5 cm/s Mitral E to MV E' Ratio 13.4 Mitral E to LV E' Lateral Ratio 13.1 Mitral E to LV E' Septal Ratio 13.7 TR Peak Velocity 285.0 cm/s TR Peak Gradient 32.5 mmHg TV Peak E Velocity 127.0 cm/s Right Atrial Pressure 3.0 mmHg Pulmonary Artery Systolic Pressu 35.5 mmHg PV Peak Velocity 121.0 cm/s FINDINGS Left Ventricle Normal left ventricular cavity size. Normal left ventricular systolic function. Left ventricular ejection fraction is estimated at 58%. Grade I/IV diastolic dysfunction (abnormal relaxation filling pattern), normal to mildly elevated filling pressures. Right Ventricle The right ventricle is normal in size and function. Mild pulmonary hypertension, RVSP 35.5 mmHg. Right Atrium The right atrium is normal in size. Left Atrium Mildly increased left atrial size. Mitral Valve Severely thickened mitral valve. Severe mitral annular calcification. No mitral valve stenosis. Mild mitral valve regurgitation. Aortic Valve Severe aortic valve calcification. Moderate to severe aortic valve stenosis, mean gradient 28.5 mmHg, LAI 1 cm squared. Mild aortic valve regurgitation. Cannot rule out bicuspid aortic valve. Velocity across the aortic valve is 4 m/s. Tricuspid Valve Structurally normal tricuspid valve without significant stenosis or regurgitation. Pulmonic Valve Structurally normal pulmonic valve without significant stenosis. There is no pulmonic regurgitation. Pericardium Normal pericardium without effusion. Aorta Normal ascending aorta dimension. CONCLUSIONS 1-Normal left ventricular cavity size. Normal left ventricular systolic function. Left ventricular ejection fraction is estimated at 58%. Grade I/IV diastolic dysfunction (abnormal relaxation filling pattern), normal to mildly elevated filling pressures. 2-Mildly increased left atrial size. 3-Severe aortic valve calcification. Moderate to severe aortic valve stenosis, mean gradient 28.5 mmHg, LAI 1 cm squared. Mild aortic valve regurgitation. Cannot rule out bicuspid aortic valve. Velocity across the aortic valve is 4 m/s. 4-Severely thickened mitral valve. Severe mitral annular calcification. No mitral valve stenosis. Mild mitral valve regurgitation. 5-The right ventricle is normal in size and function. Mild pulmonary hypertension, RVSP 35.5 mmHg. 6-There is no pericardial effusion. 7-Right atrial pressure is around 5 mm of mercury. 8-When compared to the prior echocardiogram dated May 19, 2020 there is slightly worsening of aortic valve stenosis with peak gradient of 64 mmHg, mean gradient 28 mmHg, however aortic valve area remains 1 cm2, but velocity across the aortic valve increased from 3.5 to 4.0 m/s which could be due to technical error in the past. Aniyah Blanca MD (Electronically Signed) Final Date: 04 July 2020 17:52 S
--- NOTE | 2020-07-03 10:56 | PC.PHAR ---
pt unable to verify medications-pt kept falling asleep and wouldnt stay awake to answer any questions-medications that are entered are meds from what external med history shows and some medications are from previous entered med list
[2020-07-03] MEDS: aspirin 81 mg EC Tablet PO (11:28)
--- NOTE | 2020-07-03 13:17 | PM.PN ---
Subjective Subjective: Interval history: Awake and alert. However appears very tired and weak. No acute distress. Responses are adequate. Denies fever or chills. No shortness of breath. No chest pain. No vomiting Medications: Reviewed: Yes Medication Review Details: Generic Name Dose Route Start Last Admin Trade Name Bean PRN Reason Stop Dose Admin Apixaban 5 mg 07/03/20 06:00 07/03/20 06:24 Apixaban 5 Mg Ta blet PO 5 mg BID@ VALDO Administration Aspirin 81 mg 07/03/20 10:15 07/03/20 11:28 Aspirin 81 Mg Ec Tablet PO 81 mg DAILY VALDO Administration Bupropion HCl 150 mg 07/03/20 06:00 07/03/20 06:24 Bupropion Sr (12 Hr) 150 Mg Tablet PO 150 mg BID@ VALDO Administration Dexamethasone 6 mg 07/03/20 09:00 07/03/20 09:55 Dexamethasone 4 Mg Tablet PO 6 mg DAILY VALDO Administration Duloxetine HCl 60 mg 07/03/20 06:00 07/03/20 06:24 Duloxetine 60 Mg Capsule PO 60 mg DAILY@06 VALDO Administration Furosemide 40 mg 07/03/20 08:00 07/03/20 09:56 Furosemide 40 Mg Tablet PO 40 mg DAILY@0800 VALDO Administration Levothyroxine Sodi um 100 mcg 07/03/20 06:00 07/03/20 06:24 Levothyroxine 10 0 Mcg Tablet PO 100 mcg DAILY@06 VALDO Administration Losartan Potassium 25 mg 07/03/20 09:00 07/03/20 09:56 Losartan 50 Mg T ablet PO 25 mg DAILY VALDO Administration Pantoprazole Sodiu m 40 mg 07/03/20 06:00 07/03/20 06:[address] 40 Mg Tablet PO 40 mg BID@ VALDO Administration Spironolactone 25 mg 07/03/20 06:00 07/03/20 06:24 Spironolactone 2 5 Mg Tablet PO 25 mg DAILY@06 VALDO Administration Vitals/I&O/Wt Last Vital Signs Temp 97.7 F 07/03/20 12:00 Pulse 76 07/03/20 12:00 Resp 17 07/03/20 12:00 BP 107/57 07/03/20 12:00 Pulse Ox 99 07/03/20 12:00 07/02/20 07/03/20 07/03/20 22:59 06:59 14:59 Intake Total 50 / 50 360 / 360 Balance 50 / 50 360 / 360 Weight last 48 hrs Weight 165.561 kg Physical Exam Narrative: EXAM NARRATIVE: Skin is warm and dry. Noticing some redness Neck supple. No JVD Lungs bilateral crackles. Decreased breath sounds. No respiratory distress Heart S1, S2, regular Abdomen obese soft and nontender, bowel sounds are present Extremities bilateral chronic venous stasis, severe edema. No peripheral cyanosis. No calf tenderness bilaterally Data : 07/02/20 22:43 07/02/20 22:43 Micro: Microbiology 07/03/20 03:53 Blood Culture - Preliminary Blood SPECIMEN COLLECTED 07/03/20 03:35 Blood Culture - Preliminary Blood SPECIMEN COLLECTED A&P Assessment and plan (1) Atypical chest pain: Status: Acute (2) Aortic valve stenosis: Status: Acute Qualifiers: Cardiac valve disease etiology: nonrheumatic Qualified Code(s): I35.0 - Nonrheumatic aortic (valve) stenosis (3) Acute dyspnea: Status: Acute Additional A&P Information Acute on chronic shortness of breath Relative hypoxia present on ABG, However patient is saturating well on room air CTA chest rule out PE Groundglass opacities seen with interstitial prominence COVID-19 negative, PCR sent will start on Decadron High BNP view clinical signs of fluid overload Procalcitonin unremarkable I would not add antibiotics at this point Moderate aortic valve stenosis I do believe her symptoms are secondary to underlying aortic valve stenosis that is why she gets short of breath and experience chest pain I would only use low-dose Lasix for now considering active CHF exacerbation Kindly consider cardiology evaluation for her symptomatic aortic valve stenosis Diastolic congestive heart failure exacerbation Patient has not been on any diuretics because of valvular disease Would use low-dose Lasix No active infarctive or ischemic changes on EKG, troponin with negative delta PE has been ruled out 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 Waiting for PCR test. Continue as needed oxygen, dexamethasone. Possible congestive heart failure. Echo is pending. Will increase furosemide. Has history of diastolic congestive heart failure and moderate degree of aortic stenosis. Resume home beta-dimitris. Continue home ARB. Anemia. Stable. Monitor. DVT prophylaxis. On apixaban. History of hypothyroidism. Continue home Synthroid. Attestations Medical Necessity Statement*: She still requires aggressive management of her pulmonary infiltrates, edema. Additional work-up is in progress. Coding Level of Care Code Acute Tester [employer] for Jose Graham Diagnoses Atypical chest pain R07.89 Aortic valve stenosis I35.0 Cardiac valve disease etiology: nonrheumatic Acute dyspnea R06.00
[2020-07-03] MEDS: propranolol 20 mg Tablet 10 MG PO (17:57)
[2020-07-03] MEDS: gabapentin 300 mg Capsule PO (21:32)
[2020-07-03] MEDS: atorvastatin 40 mg Tablet 20 MG PO (21:32)
[2020-07-03] MEDS: oxyCODONE-APAP 5-325 mg Tablet 1 TAB PO (22:40)
[2020-07-04] VITALS (12 sets, daily range): BP systolic 93–119; BP diastolic 50–67; PULSE 67–76; RESP 16–20; TEMP 36.3–36.6; O2SAT 92–98
[2020-07-04 05:18] LABS: Basophils % 0.1 %; Eosinophils % 0.1 %; Hematocrit 26.3 % (37.0-47.0); Hemoglobin 8.1 g/dL (11.5-15.3); Lymphocytes % 10.1 %; Mean Corpuscular HGB Conc 30.8 g/dL (30.0-36.0); Mean Corpuscular Hemoglobin 25.2 pg (28.0-34.0); Mean Corpuscular Volume 81.7 fL (81-99); Mean Platelet Volume 10.8 fL (7.4-10.4); Monocytes # 0.8 10^3/uL (0.2-0.9); Monocytes % 8.4 %; Neutrophils # 7.97 10^3/uL (1.8-7.7); Nucleated Red Blood Cells % 0 %; Platelet Count 241 10^3/cmm (130-400); Red Blood Count 3.22 10^6/uL (4.1-5.3); Red Cell Distribution Width 18.7 % (12.1-15.1); White Blood Count 9.8 10^3/uL (4.0-10.0)
[2020-07-04] MEDS: duloxetine 60 mg Capsule PO (05:22)
[2020-07-04] MEDS: apixaban 5 mg Tablet PO ×2 (05:22→22:23)
[2020-07-04] MEDS: spironolactone 25 mg Tablet PO (05:22)
[2020-07-04] MEDS: buPROPion SR (12 HR) 150 mg Tablet PO ×2 (05:22→22:23)
[2020-07-04] MEDS: levothyroxine 100 mcg Tablet PO (05:22)
[2020-07-04] MEDS: FUROsemide 40 mg Tablet PO ×2 (05:22→17:52)
[2020-07-04] MEDS: pantoprazole DR 40 mg Tablet PO ×2 (05:22→22:23)
[2020-07-04 05:47] LABS: D Dimer 5.05 ug/mIFEU (0-0.59)
[2020-07-04 05:59] LABS: Albumin Level 2.5 g/dL (3.5-5.2); Anion Gap 9.9 (5-19); Blood Urea Nitrogen 18 mg/dL (6-20); C Reactive Protein 91.6 mg/L (0.0-4.9); Carbon Dioxide 26 mmol/L (22-29); Chloride 105 mmol/L (98-107); Glomerular Filtration Rate 65.5 mL/min (90-130); Glucose 89 mg/dL (65-115); NT Pro B Type Natriuretic Pept 1476 pg/mL (0-125); Phosphorus 3.4 mg/dL (2.5-4.5); Potassium 3.9 mmol/L (3.5-5.1); Sodium 137 mmol/L (136-145)
[2020-07-04] MEDS: losartan 50 mg Tablet 25 MG PO (07:55)
[2020-07-04] MEDS: aspirin 81 mg EC Tablet PO (07:55)
[2020-07-04] MEDS: propranolol 20 mg Tablet 10 MG PO ×2 (07:55→17:52)
[2020-07-04] MEDS: dexamethasone 4 mg Tablet 6 MG PO (07:58)
--- NOTE | 2020-07-04 12:57 | PM.PN ---
Subjective Subjective: Interval history: The patient looks better. She reports feeling better. Reports improved shortness of breath which is still present. No chest pain. No fever or chills. No nausea or vomiting. No diarrhea. Medications: Reviewed: Yes Medication Review Details: Generic Name Dose Route Start Last Admin Trade Name Nestorq PRN Reason Stop Dose Admin Apixaban 5 mg 07/03/20 06:00 07/04/20 05:22 Apixaban 5 Mg Ta blet PO 5 mg BID@ VALDO Administration Aspirin 81 mg 07/03/20 10:15 07/04/20 07:55 Aspirin 81 Mg Ec Tablet PO 81 mg DAILY VALDO Administration Atorvastatin Calci um 20 mg 07/03/20 22:00 07/03/20 21:32 Atorvastatin 40 Mg Tablet PO 20 mg DAILY@ VALDO Administration Bupropion HCl 150 mg 07/03/20 06:00 07/04/20 05:22 Bupropion Sr (12 Hr) 150 Mg Tablet PO 150 mg BID@ VALDO Administration Dexamethasone 6 mg 07/03/20 09:00 07/04/20 07:58 Dexamethasone 4 Mg Tablet PO 6 mg DAILY VALDO Administration Duloxetine HCl 60 mg 07/03/20 06:00 07/04/20 05:22 Duloxetine 60 Mg Capsule PO 60 mg DAILY@06 VALDO Administration Furosemide 40 mg 07/03/20 13:30 07/04/20 05:22 Furosemide 40 Mg Tablet PO 40 mg Q12H VALDO Administration Gabapentin 300 mg 07/03/20 22:00 07/03/20 21:32 Gabapentin 300 M g Capsule PO 300 mg BEDTIME@22 VALDO Administration Levothyroxine Sodi um 100 mcg 07/03/20 06:00 07/04/20 05:22 Levothyroxine 10 0 Mcg Tablet PO 100 mcg DAILY@06 VALDO Administration Losartan Potassium 25 mg 07/03/20 09:00 07/04/20 07:55 Losartan 50 Mg T ablet PO 25 mg DAILY VALDO Administration Oxycodone/Acetamin ophen 1 tab 07/03/20 05:12 07/03/20 22:40 Oxycodone-Apap 5 -325 Mg Tablet PO 1 tab Q4H PRN Administration Pain Pantoprazole Sodiu m 40 mg 07/03/20 06:00 07/04/20 05:[address] 40 Mg Tablet PO 40 mg BID@ VALDO Administration Propranolol HCl 10 mg 07/03/20 18:00 07/04/20 07:55 Propranolol 20 M g Tablet PO 10 mg BID VALDO Administration Spironolactone 25 mg 07/03/20 06:00 07/04/20 05:22 Spironolactone 2 5 Mg Tablet PO 25 mg DAILY@06 VALDO Administration Vitals/I&O/Wt Last Vital Signs Temp 97.9 F 07/04/20 12:00 Pulse 71 07/04/20 12:00 Resp 18 07/04/20 12:00 BP 102/58 07/04/20 12:00 Pulse Ox 92 07/04/20 12:00 07/03/20 07/04/20 07/04/20 22:59 06:59 14:59 Intake Total 120 / 720 120 / 120 Balance 120 / 720 120 / 120 Weight last 48 hrs Weight 165.561 kg Physical Exam Narrative: EXAM NARRATIVE: Awake alert and oriented. No acute distress Skin is warm and dry. MMM Neck supple. No JVD Lungs: Unchanged bilateral crackles. No respiratory distress Heart S1, S2, regular Abdomen obese soft and nontender, bowel sounds are present Extremities bilateral chronic venous stasis, severe edema. No peripheral cyanosis. No calf tenderness bilaterally Data : 07/04/20 04:40 07/04/20 04:40 Micro: Microbiology 07/03/20 03:53 Blood Culture - Preliminary Blood Gram positive cocci 07/03/20 03:35 Blood Culture - Preliminary Blood Gram positive cocci A&P Assessment and plan (1) Atypical chest pain: Status: Acute (2) Aortic valve stenosis: Status: Acute Qualifiers: Cardiac valve disease etiology: nonrheumatic Qualified Code(s): I35.0 - Nonrheumatic aortic (valve) stenosis (3) Acute dyspnea: Status: Acute Additional A&P Information Acute on chronic shortness of breath Relative hypoxia present on ABG, However patient is saturating well on room air CTA chest rule out PE Groundglass opacities seen with interstitial prominence COVID-19 negative, PCR sent will start on Decadron High BNP view clinical signs of fluid overload Procalcitonin unremarkable I would not add antibiotics at this point Moderate aortic valve stenosis I do believe her symptoms are secondary to underlying aortic valve stenosis that is why she gets short of breath and experience chest pain I would only use low-dose Lasix for now considering active CHF exacerbation Kindly consider cardiology evaluation for her symptomatic aortic valve stenosis Diastolic congestive heart failure exacerbation Patient has not been on any diuretics because of valvular disease Would use low-dose Lasix No active infarctive or ischemic changes on EKG, troponin with negative delta PE has been ruled out 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 Waiting for PCR test. Procalcitonin is normal. Doubt bacterial infection. Continue diuresis. Continue as needed oxygen, dexamethasone. congestive heart failure, acute exacerbation. Echo ispending. Continue diuresis. Has history of diastolic congestive heart failure and moderate degree of aortic stenosis. Continuing home beta-dimitris and ARB. Anemia. Stable. Monitor. DVT prophylaxis. On apixaban. History of hypothyroidism. Continue home Synthroid. The plan of care was discussed with the patient. She verbalized understanding and agreement. Attestations Medical Necessity Statement*: Waiting for Covid test. Continuing steroids, diuresis, oxygen Coding Level of Care Code Acute Battery Plate Remover for Chg Fwd Diagnoses Atypical chest pain R07.89 Aortic valve stenosis I35.0 Cardiac valve disease etiology: nonrheumatic Acute dyspnea R06.00
[2020-07-04] MEDS: oxyCODONE-APAP 5-325 mg Tablet 1 TAB PO (17:52)
[2020-07-04] MEDS: gabapentin 300 mg Capsule PO (22:22)
[2020-07-04] MEDS: atorvastatin 40 mg Tablet 20 MG PO (22:23)
[2020-07-05] VITALS (16 sets, daily range): BP systolic 94–142; BP diastolic 56–72; PULSE 61–84; RESP 16–28; TEMP 36.5–36.8; O2SAT 88–97
[2020-07-05] MEDS: ipratropium-albuterol 3 mL Neb INHALATION ×2 (03:39→09:03)
[2020-07-05 05:30] LABS: Basophils % 0.2 %; Eosinophils # 0.1 10^3/uL (0.0-0.8); Eosinophils % 0.7 %; Hematocrit 29.3 % (37.0-47.0); Hemoglobin 8.9 g/dL (11.5-15.3); Lymphocytes # 1.4 10^3/uL (0.8-4.8); Lymphocytes % 11.2 %; Mean Corpuscular HGB Conc 30.4 g/dL (30.0-36.0); Mean Corpuscular Hemoglobin 24.8 pg (28.0-34.0); Mean Corpuscular Volume 81.6 fL (81-99); Mean Platelet Volume 10.9 fL (7.4-10.4); Monocytes # 1.2 10^3/uL (0.2-0.9); Neutrophils # 9.46 10^3/uL (1.8-7.7); Neutrophils % 77.4 %; Nucleated Red Blood Cells % 0 %; Platelet Count 268 10^3/cmm (130-400); Red Blood Count 3.59 10^6/uL (4.1-5.3); Red Cell Distribution Width 18.8 % (12.1-15.1); White Blood Count 12.2 10^3/uL (4.0-10.0)
[2020-07-05 05:47] LABS: D Dimer 3.95 ug/mIFEU (0-0.59)
[2020-07-05 06:03] LABS: Albumin Level 2.7 g/dL (3.5-5.2); Anion Gap 10.6 (5-19); Blood Urea Nitrogen 21 mg/dL (6-20); C Reactive Protein 58.6 mg/L (0.0-4.9); Carbon Dioxide 29 mmol/L (22-29); Chloride 104 mmol/L (98-107); Glucose 87 mg/dL (65-115); Magnesium 2.1 mg/dL (1.7-2.3); NT Pro B Type Natriuretic Pept 1982 pg/mL (0-125); Phosphorus 3.1 mg/dL (2.5-4.5); Potassium 3.6 mmol/L (3.5-5.1); Sodium 140 mmol/L (136-145)
[2020-07-05] MEDS: FUROsemide 40 mg Tablet PO (06:25)
[2020-07-05] MEDS: spironolactone 25 mg Tablet PO (06:26)
[2020-07-05] MEDS: levothyroxine 100 mcg Tablet PO (06:26)
[2020-07-05] MEDS: duloxetine 60 mg Capsule PO (06:26)
[2020-07-05] MEDS: oxyCODONE-APAP 5-325 mg Tablet 1 TAB PO ×3 (06:30→17:32)
[2020-07-05] MEDS: apixaban 5 mg Tablet PO (07:15)
[2020-07-05] MEDS: pantoprazole DR 40 mg Tablet PO ×2 (07:15→21:44)
[2020-07-05] MEDS: buPROPion SR (12 HR) 150 mg Tablet PO ×2 (07:15→21:43)
[2020-07-05 08:34] LABS: Coronavirus Test Green County Not Detected
[2020-07-05] MEDS: azithromycin 500 MG in sodium chloride 0.9% 250 ML 250 MG IV (09:37)
[2020-07-05] MEDS: dexamethasone 4 mg Tablet 6 MG PO (09:37)
[2020-07-05] MEDS: propranolol 20 mg Tablet 10 MG PO ×2 (09:37→17:32)
[2020-07-05] MEDS: losartan 50 mg Tablet 25 MG PO (09:38)
[2020-07-05] MEDS: aspirin 81 mg EC Tablet PO (09:38)
[2020-07-05] MEDS: cefTRIAXone 1,000 MG in sodium chloride 0.9% (plus) 50 ML 100 MG IV (11:03)
[2020-07-05 11:06] LABS: ABG PCO2 51.8 mmHg (35-45); ABG PH Result 7.35 (7.35-7.45); Arterial Blood Gas Hematocrit 28.5 % (37-47); Base Excess ABG 2.5 mmol/L (-2.0-2.0); Blood Gas Allen Test Pos; Blood Gas Operator Identificat glc; Blood Gas Sample Site Radial, right; Blood Gas Sample Type Arterial; HCO3 ABG 28.7 mmol/L (22-26); Oxygen Device NC; PO2 ABG 69.3 mmHg (80.0-100.0)
--- NOTE | 2020-07-05 14:09 | P.PN_ITS ---
Subjective Subjective: Interval history: Patient was examined this morning, she is now on 4 L, she is still complaining of shortness of breath, fatigue, malaise, not feeling well, she tells me she has not really gotten better since she came in, no fevers, no chills, no nausea, no vomiting, no headache, no blurry vision, no neck pain, no diarrhea, no chest pain, no palpitations Medications: Reviewed: Yes Medication Review Details: Generic Name Dose Route Start Last Admin Trade Name Bean PRN Reason Stop Dose Admin Apixaban 5 mg 07/03/20 06:00 07/04/20 05:22 Apixaban 5 Mg Ta blet PO 5 mg BID@ VALDO Administration Aspirin 81 mg 07/03/20 10:15 07/04/20 07:55 Aspirin 81 Mg Ec Tablet PO 81 mg DAILY VALDO Administration Atorvastatin Calci um 20 mg 07/03/20 22:00 07/03/20 21:32 Atorvastatin 40 Mg Tablet PO 20 mg DAILY@ VALDO Administration Bupropion HCl 150 mg 07/03/20 06:00 07/04/20 05:22 Bupropion Sr (12 Hr) 150 Mg Tablet PO 150 mg BID@ VALDO Administration Dexamethasone 6 mg 07/03/20 09:00 07/04/20 07:58 Dexamethasone 4 Mg Tablet PO 6 mg DAILY VALDO Administration Duloxetine HCl 60 mg 07/03/20 06:00 07/04/20 05:22 Duloxetine 60 Mg Capsule PO 60 mg DAILY@06 VALDO Administration Furosemide 40 mg 07/03/20 13:30 07/04/20 05:22 Furosemide 40 Mg Tablet PO 40 mg Q12H VALDO Administration Gabapentin 300 mg 07/03/20 22:00 07/03/20 21:32 Gabapentin 300 M g Capsule PO 300 mg BEDTIME@ VALDO Administration Levothyroxine Sodi um 100 mcg 07/03/20 06:00 07/04/20 05:22 Levothyroxine 10 0 Mcg Tablet PO 100 mcg DAILY@06 VALDO Administration Losartan Potassium 25 mg 07/03/20 09:00 07/04/20 07:55 Losartan 50 Mg T ablet PO 25 mg DAILY VALDO Administration Oxycodone/Acetamin ophen 1 tab 07/03/20 05:12 07/03/20 22:40 Oxycodone-Apap 5 -325 Mg Tablet PO 1 tab Q4H PRN Administration Pain Pantoprazole Sodiu m 40 mg 07/03/20 06:00 07/04/20 05:[address] 40 Mg Tablet PO 40 mg BID@ [facility] Administration Propranolol HCl 10 mg 07/03/20 18:00 07/04/20 07:55 Propranolol 20 M g Tablet PO 10 mg BID [facility] Administration Spironolactone 25 mg 07/03/20 06:00 07/04/20 05:22 Spironolactone 2 5 Mg Tablet PO 25 mg DAILY@06 [facility] Administration Vitals/I&O/Wt Last Vital Signs Temp 98.1 F 07/05/20 11:54 Pulse 84 07/05/20 11:54 Resp 18 07/05/20 11:54 BP 121/64 07/05/20 11:54 Pulse Ox 97 07/05/20 11:54 07/04/20 07/05/20 07/05/20 22:59 06:59 14:59 Intake Total 140 / 380 340 / 720 420 / 420 Output Total 250 / 250 Balance 140 / 380 90 / 470 420 / 420 Physical Exam Const: COMMON NORMALS: no acute distress and patient oriented x3 HENMT: COMMON NORMALS: normocephalic HEAD & SCALP: normocephalic Neck/C-Spine: COMMON NORMALS: no JVD Resp: COMMON NORMALS: normal respiratory effort, No retractions, No use of accessory muscles and clear to auscultation bilaterally AUSCULTATION: clear to auscultation bilaterally Cardio: COMMON NORMALS: no JVD, regular rate, regular rhythm, S1 normal heart sound present and S2 normal heart sound present RATE: regular rate RHYTHM: regular rhythm HEART SOUNDS: S1 normal heart sound present and S2 normal heart sound present GI: COMMON NORMALS: Normal to inspection, nondistended, normoactive bowel sounds present, Soft to palpation, non-tender, No hepatosplenomegaly present, no masses and no bruits PALPATION: Yes Soft to palpation and Yes No hepatosplenomegaly present Extremity: COMMON NORMALS: capillary refill normal, no calf tenderness and no pedal edema NARRATIVE EXTREMITY EXAM: 2+ pitting edema Neuro: COMMON NORMALS: patient oriented x3 Psych: COMMON NORMALS: mental status grossly normal Urinary Catheter Management^: [place]: Cath Placed During This Visit: yes Urinary Catheter Date of Insertion: 07/05/20 Urinary Catheter Time of Insertion: 10:30 Data : 07/05/20 05:21 07/05/20 05:21 Micro: Microbiology 07/05/20 09:45 Blood Culture - Preliminary Blood SPECIMEN COLLECTED 07/05/20 09:50 Blood Culture - Preliminary Blood SPECIMEN COLLECTED 07/03/20 03:53 Blood Culture - Preliminary Blood Staphylococcus sp coag neg Staphylococcus sp coag neg#2 07/03/20 03:35 Blood Culture - Preliminary Blood Staphylococcus sp coag neg Staphylococcus sp coag neg#2 A&P Assessment and plan (1) Acute respiratory failure with hypoxia: Does not use oxygen at home, is now up to 4 L Rapid Covid negative negative, PCR negative, pro-Damian within normal limits CT angiogram of the chest does not show pulmonary emboli, does show consolidation that superimposed over bilateral pleural effusions, right pleural effusion exhibits thickened enhancing wall suggesting empyema, appears stable compared to prior CT scan dated from 12/14/2019, new developing patchy diffuse groundglass opacities most prominently within the upper hemithorax is, indicated of bilateral interstitial pneumonia Cardiac echocardiogram shows an EF of 50%, grade 1 out of 4 diastolic dysfunction, moderate to severe aortic stenosis,, mild pulmonary hypertension, aortic valve area 1 cm? Blood cultures are positive for Staphylococcus species coagulase-negative, 2 species -Findings are concerning for fluid overload, pulmonary edema, and for possible Covid Plan: -Repeat COVID-19 testing PCR today -Continue Decadron, continue oxygen -We will broaden antibiotic therapy to vancomycin, Zosyn, Rocephin -Repeat blood cultures, first set of blood cultures all for positive for coagulase-negative staph, will have microbiology getting identification, contamination versus infection etiology possibly associate with pneumonia or empyema -Hold Eliquis, switch to therapeutic Lovenox in anticipation for possible thoracocentesis on the right based on clinical progress, to evaluate for possible empyema -Increase Lasix to 40 mg IV twice daily, strict I's and O's, fluid restrictions to 1500 cc, monitor BMP - Status: Acute (2) Atypical chest pain: Status: Acute (3) Aortic valve stenosis: Status: Acute Qualifiers: Cardiac valve disease etiology: nonrheumatic Qualified Code(s): I35.0 - Nonrheumatic aortic (valve) stenosis (4) Acute dyspnea: Status: Acute (5) Gram-positive bacteremia: Status: Acute Additional A&P Information Moderate aortic valve stenosis Summary patients's angina and shortness of breath is related to aortic valve stenosis Monitor Lasix therapy closely We will consider discussing with cardiology based on clinical progress Diastolic congestive heart failure exacerbation Lasix 40 mg IV twice daily No active infarctive or ischemic changes on EKG, troponin with negative delta PE has been ruled out , Stable Anemia DVT/PE history in the past She takes Eliquis 5 mg twice a day which I would continue for now Hypothyroidism: Continue levothyroxine 100 mcg Full code Cardiac diet DVT prophylaxis therapeutic Lovenox Attestations Medical Necessity Statement*: Patient requires hospitalization for acute res piratory failure with hypoxia secondary to pneumonia, fluid overload, possible empyema Coding Level of Care Code Acute Floor Covering Layer for [facility] Diagnoses Acute respiratory failure with hypoxia J96.01 Atypical chest pain R07.89 Aortic valve stenosis I35.0 Cardiac valve disease etiology: nonrheumatic Acute dyspnea R06.00 Gram-positive bacteremia R78.81
--- NOTE | 2020-07-05 16:20 | PC.RESP ---
Smoking Cessation and Pulmonary Rehab information sent to patient.
[2020-07-05] MEDS: enoxaparin 30 mg/0.3 mL Syringe SUBCUT (17:31)
[2020-07-05] MEDS: enoxaparin 120 mg/0.8 mL Syringe SUBCUT (17:32)
[2020-07-05] MEDS: FUROsemide 10 mg/mL SDV 4mL 40 MG IVP (17:32)
[2020-07-05] MEDS: gabapentin 300 mg Capsule PO (21:43)
[2020-07-05] MEDS: atorvastatin 40 mg Tablet 20 MG PO (21:43)
[2020-07-06] VITALS (15 sets, daily range): BP systolic 107–128; BP diastolic 53–78; PULSE 66–80; RESP 19–25; TEMP 36.2–36.6; O2SAT 69–98
[2020-07-06 03:41] LABS: ABG PCO2 55.1 mmHg (35-45); ABG PH Result 7.36 (7.35-7.45); Base Excess ABG 4.6 mmol/L (-2.0-2.0); HCO3 ABG 30.9 mmol/L (22-26); PO2 ABG 67.5 mmHg (80.0-100.0)
[2020-07-06 03:42] LABS: Arterial Blood Gas Hematocrit 27.9 % (37-47); Blood Gas Allen Test P; Blood Gas Sample Site R-RADIAL; Blood Gas Sample Type ART; Oxygen Device NC
[2020-07-06] MEDS: FUROsemide 10 mg/mL SDV 4mL 40 MG IVP (05:32)
[2020-07-06] MEDS: ipratropium-albuterol 3 mL Neb INHALATION (06:29)
[2020-07-06 06:43] LABS: Basophils % 0.1 %; Eosinophils # 0.1 10^3/uL (0.0-0.8); Eosinophils % 0.5 %; Hematocrit 33.2 % (37.0-47.0); Hemoglobin 9.9 g/dL (11.5-15.3); Lymphocytes # 1.5 10^3/uL (0.8-4.8); Lymphocytes % 11.8 %; Mean Corpuscular HGB Conc 29.8 g/dL (30.0-36.0); Mean Corpuscular Hemoglobin 24.7 pg (28.0-34.0); Mean Corpuscular Volume 82.8 fL (81-99); Mean Platelet Volume 11.3 fL (7.4-10.4); Monocytes # 1.2 10^3/uL (0.2-0.9); Monocytes % 9.1 %; Neutrophils # 10.09 10^3/uL (1.8-7.7); Neutrophils % 78.1 %; Nucleated Red Blood Cells % 0 %; Platelet Count 296 10^3/cmm (130-400); Red Blood Count 4.01 10^6/uL (4.1-5.3); Red Cell Distribution Width 19.1 % (12.1-15.1); White Blood Count 12.9 10^3/uL (4.0-10.0)
[2020-07-06] MEDS: spironolactone 25 mg Tablet PO (06:57)
[2020-07-06] MEDS: enoxaparin 120 mg/0.8 mL Syringe SUBCUT ×2 (06:57→17:46)
[2020-07-06] MEDS: levothyroxine 100 mcg Tablet PO (06:57)
[2020-07-06] MEDS: pantoprazole DR 40 mg Tablet PO ×2 (06:57→22:00)
[2020-07-06] MEDS: duloxetine 60 mg Capsule PO (06:57)
[2020-07-06] MEDS: buPROPion SR (12 HR) 150 mg Tablet PO ×2 (06:57→22:00)
[2020-07-06] MEDS: enoxaparin 30 mg/0.3 mL Syringe SUBCUT ×2 (06:58→17:46)
--- NOTE | 2020-07-06 07:00 | XR_ITS ---
WS: [id number] Exam: XR chest 1V portable [id number] Date/Time of Exam: 07/06/2020 6:35 AM Reason For Exam: sob Comparison 07/02/2020. Widespread bilateral pulmonary infiltrates demonstrate increased consolidation since the last exam. B ibasal pleural effusions are unchanged. Normal heart size and mediastinal contour. The lungs remain f ully inflated. Postoperative change of the distal right clavicle. Monitoring leads superimpose the ch est. XR/XR chest 1V portable [id number] IMPRESSION: 1. Widespread bilateral pulmonary infiltrates demonstrate increased consolidati on since the last exam. 2. Small bilateral pleural effusions most marked on the right unchanged.
[2020-07-06 07:11] LABS: Alanine Aminotransferase 17 U/L (0-33); Albumin Level 2.8 g/dL (3.5-5.2); Alkaline Phosphatase 283 IU/L (35-105); Anion Gap 9.6 (5-19); Aspartate Amino Transferase 25 U/L (0-32); Blood Urea Nitrogen 24 mg/dL (6-20); C Reactive Protein 69.3 mg/L (0.0-4.9); Calcium 9.1 mg/dL (8.5-10.5); Carbon Dioxide 30 mmol/L (22-29); Chloride 104 mmol/L (98-107); Glomerular Filtration Rate 65.5 mL/min (90-130); Glucose 85 mg/dL (65-115); Magnesium 2.2 mg/dL (1.7-2.3); Osmolality Calculated 293 mOsm/kg (285-295); Phosphorus 2.6 mg/dL (2.5-4.5); Potassium 3.6 mmol/L (3.5-5.1); Sodium 140 mmol/L (136-145); Total Bilirubin 0.4 mg/dL (0.15-1.2); Total Protein 6.8 g/dL (6.6-8.7)
[2020-07-06 07:19] LABS: NT Pro B Type Natriuretic Pept 3912 pg/mL (0-125); Procalcitonin 0.39 ng/mL (0-0.5)
[2020-07-06] MEDS: dexamethasone 4 mg Tablet 6 MG PO (08:54)
[2020-07-06] MEDS: propranolol 20 mg Tablet 10 MG PO ×2 (08:54→17:46)
[2020-07-06] MEDS: losartan 50 mg Tablet 25 MG PO (08:55)
[2020-07-06] MEDS: aspirin 81 mg EC Tablet PO (08:55)
--- NOTE | 2020-07-06 08:58 | CT_ITS ---
WS: [id number] CT CHEST TECHNIQUE: Noncontrast CT of the chest with coronal and sagittal reformatted images. CLINICAL INFORMATION: sob COMPARISON: July 03, 2020 DLP: 1008.[address] scans at [facility] use at least one of these dose optimization techniques: automat ed exposure control; mA and/or kV adjustment per patient size (includes targeted exams where dose is matched to clinical indication); or iterative reconstruction. FINDINGS: Shallow inspiration. Cardiomegaly. Diffuse bilateral groundglass infiltrates worse in the mid and upp er lobes progressed since July 03, 2020. Small bilateral pleural effusions with compressive atelec tasis in the lung bases. Pleural effusions slightly improved from previous. Persistent enhancement of the right pleura suspicious for empyema. A few prominent mediastinal lymph nodes likely reactive. No axillary lymphadenopathy. Cirrhotic contour to the liver. Cholelithiasis. Partially visualized nonobstructing calyceal tip calc juan. CT/CT chest wo con [id number] IMPRESSION: 1. Progressed hazy groundglass infiltrates in the perihilar regions and upper lobes. This is progressed since July 03, 2020. Recommend correlation for COV ID19 pneumonia. 2. Small bilateral pleural effusions slightly improved with subsegmental atele ctasis in the lung bases. Enhancement of the right pleura is unchanged suspicio us for empyema. 3. Cirrhotic contour to the liver. 4. Cholelithiasis. 5. Cardiomegaly.
--- NOTE | 2020-07-06 08:58 | US_ITS ---
WS: [id number] INDICATION: Ultrasound right chest empyema TECHNIQUE: Ultrasound right chest FINDINGS: Ultrasound right chest. Small right pleural effusion with pleural thickening. Small amount of internal debris. This appears partially free flowing. US/US chest [id number] IMPRESSION: Small right pleural effusion with pleural thickening and some inter nal debris. This appears partially free-flowing
[2020-07-06] MEDS: azithromycin 500 MG in sodium chloride 0.9% 250 ML 250 MG IV (09:16)
[2020-07-06] MEDS: potassium chloride ER 20 mEq Tablet 40 MEQ PO ×2 (09:16→22:00)
[2020-07-06] MEDS: bumetanide 0.25 mg/mL SDV 4 mL 1 MG IV ×2 (09:16→21:43)
[2020-07-06] MEDS: metOLazone 5 MG Tablet PO (09:17)
[2020-07-06] MEDS: cefTRIAXone 1,000 MG in sodium chloride 0.9% (plus) 50 ML 100 MG IV (10:22)
[2020-07-06] MEDS: oxyCODONE-APAP 5-325 mg Tablet 1 TAB PO (10:32)
--- NOTE | 2020-07-06 11:08 | PM.PN ---
Subjective Subjective: Interval history: This morning patient was examined, she sitting in bed, she is complaining of shortness of breath with minimal exertion, she is up to 6 L, no fevers, no chills, no chest pain, no palpitations, no nausea, no vomiting, Medications: Reviewed: Yes Medication Review Details: Generic Name Dose Route Start Last Admin Trade Name Nestorq PRN Reason Stop Dose Admin Apixaban 5 mg 07/03/20 06:00 07/04/20 05:22 Apixaban 5 Mg Ta blet PO 5 mg BID@ VALDO Administration Aspirin 81 mg 07/03/20 10:15 07/04/20 07:55 Aspirin 81 Mg Ec Tablet PO 81 mg DAILY VALDO Administration Atorvastatin Calci um 20 mg 07/03/20 22:00 07/03/20 21:32 Atorvastatin 40 Mg Tablet PO 20 mg DAILY@ VALDO Administration Bupropion HCl 150 mg 07/03/20 06:00 07/04/20 05:22 Bupropion Sr (12 Hr) 150 Mg Tablet PO 150 mg BID@ VALDO Administration Dexamethasone 6 mg 07/03/20 09:00 07/04/20 07:58 Dexamethasone 4 Mg Tablet PO 6 mg DAILY VALDO Administration Duloxetine HCl 60 mg 07/03/20 06:00 07/04/20 05:22 Duloxetine 60 Mg Capsule PO 60 mg DAILY@06 VALDO Administration Furosemide 40 mg 07/03/20 13:30 07/04/20 05:22 Furosemide 40 Mg Tablet PO 40 mg Q12H VALDO Administration Gabapentin 300 mg 07/03/20 22:00 07/03/20 21:32 Gabapentin 300 M g Capsule PO 300 mg BEDTIME@ VALDO Administration Levothyroxine Sodi um 100 mcg 07/03/20 06:00 07/04/20 05:22 Levothyroxine 10 0 Mcg Tablet PO 100 mcg DAILY@06 VALDO Administration Losartan Potassium 25 mg 07/03/20 09:00 07/04/20 07:55 Losartan 50 Mg T ablet PO 25 mg DAILY VALDO Administration Oxycodone/Acetamin ophen 1 tab 07/03/20 05:12 07/03/20 22:40 Oxycodone-Apap 5 -325 Mg Tablet PO 1 tab Q4H PRN Administration Pain Pantoprazole Sodiu m 40 mg 07/03/20 06:00 07/04/20 05:[address] 40 Mg Tablet PO 40 mg BID@, [facility] Administration Propranolol HCl 10 mg 07/03/20 18:00 07/04/20 07:55 Propranolol 20 M g Tablet PO 10 mg BID VALDO Administration Spironolactone 25 mg 07/03/20 06:00 07/04/20 05:22 Spironolactone 2 5 Mg Tablet PO 25 mg DAILY@06 VALDO Administration Vitals/I&O/Wt Last Vital Signs Temp 97.5 F L 07/06/20 07:42 Pulse 78 07/06/20 08:00 Resp 20 H 07/06/20 10:32 BP 118/66 07/06/20 08:55 Pulse Ox 94 07/06/20 07:42 07/05/20 07/06/20 07/06/20 22:59 06:59 14:59 Intake Total 360 / 360 Output Total 650 / 650 3250 / 3250 Balance -650 / 490 -2890 / -2890 Physical Exam Const: COMMON NORMALS: no acute distress and patient oriented x3 HENMT: COMMON NORMALS: normocephalic HEAD & SCALP: normocephalic Neck/C-Spine: COMMON NORMALS: no JVD Resp: COMMON NORMALS: normal respiratory effort, No retractions and No use of accessory muscles AUSCULTATION: crackles and wheezes Cardio: COMMON NORMALS: no JVD, regular rate, regular rhythm, S1 normal heart sound present and S2 normal heart sound present RATE: regular rate RHYTHM: regular rhythm HEART SOUNDS: S1 normal heart sound present and S2 normal heart sound present GI: COMMON NORMALS: Normal to inspection, nondistended, normoactive bowel sounds present, Soft to palpation, non-tender, No hepatosplenomegaly present, no masses and no bruits PALPATION: Yes Soft to palpation and Yes No hepatosplenomegaly present Extremity: COMMON NORMALS: capillary refill normal, no clubbing, cyanosis or edema, no calf tenderness and no pedal edema NARRATIVE EXTREMITY EXAM: 2+ pitting edema Neuro: COMMON NORMALS: patient oriented x3 Psych: COMMON NORMALS: mental status grossly normal Urinary Catheter Management^: [place]: Cath Placed During This Visit: yes Reason for Continuing Indwelling Catheter: Assist Healing of Perineal & Sacral Wounds- Incontinent Patients Urinary Catheter Date of Insertion: 07/05/20 Urinary Catheter Time of Insertion: 10:30 Data : 07/06/20 06:05 07/06/20 06:05 Micro: Microbiology 07/05/20 09:50 Blood Culture - Preliminary Blood NEGATIVE TO DATE 07/05/20 09:45 Blood Culture - Preliminary Blood NEGATIVE TO DATE 07/03/20 03:53 Blood Culture - Preliminary Blood Staphylococcus sp coag neg Staphylococcus sp coag neg#2 07/03/20 03:35 Blood Culture - Preliminary Blood Staphylococcus sp coag neg Staphylococcus sp coag neg#2 A&P Assessment and plan (1) Acute respiratory failure with hypoxia: Does not use oxygen at home, is now up to 6 L Rapid Covid negative negative, PCR negative, repeat Covid PCR pending CT angiogram of the chest does not show pulmonary emboli, does show consolidation that superimposed over bilateral pleural effusions, right pleural effusion exhibits thickened enhancing wall suggesting empyema, appears stable compared to prior CT scan dated from 12/14/2019, new developing patchy diffuse groundglass opacities most prominently within the upper hemithorax is, indicated of bilateral interstitial pneumonia Cardiac echocardiogram shows an EF of 50%, grade 1 out of 4 diastolic dysfunction, moderate to severe aortic stenosis,, mild pulmonary hypertension, aortic valve area 1 cm? Blood cultures are positive for Staphylococcus species coagulase-negative, 2 species Chest x-ray this morning shows diffuse pulmonary edema and or bilateral pulmonary infiltrates BNP is 3912 is -3250cc, negative a liter since admission -Findings are concerning for fluid overload, pulmonary edema, pneumonia, and for possible Covid -Unlikely to have an empyema for this long Plan: -Repeat COVID-19 testing PCR today -Continue Decadron, continue oxygen, monitor respiratory status very closely as she is a high risk of intubation, BiPAP during the night -Continue vancomycin, Rocephin, azithromycin -Follow sputum, MRSA nares, urine bacterial antigens -Repeat blood cultures negative so far, first set of blood cultures all for positive for coagulase-negative staph, will have microbiology getting identification, contamination versus infection -Hold Eliquis, switch to therapeutic Lovenox in anticipation for possible thoracocentesis on the right based on clinical progress, to evaluate for possible empyema -Switch to Bumex 1 mg twice daily, metolazone, strict I's and O's, fluid restrictions to 1500 cc -Repeat CT of the chest today, with ultrasound of the right chest -Continue PT OT, up out of bed -Incentive spirometer, flutter valve -Advair, albuterol -Vitamin C, zinc -Full code -Lovenox for DVT prophylaxis Status: Acute (2) Atypical chest pain: Status: Acute (3) Aortic valve stenosis: Status: Acute Qualifiers: Cardiac valve disease etiology: nonrheumatic Qualified Code(s): I35.0 - Nonrheumatic aortic (valve) stenosis (4) Acute dyspnea: Status: Acute (5) Gram-positive bacteremia: Status: Acute Additional A&P Information Moderate aortic valve stenosis Summary patients's angina and shortness of breath is related to aortic valve stenosis Monitor Lasix therapy closely We will consider discussing with cardiology based on clinical progress Diastolic congestive heart failure exacerbation bumex, metolazone No active infarctive or ischemic changes on EKG, troponin with negative delta PE has been ruled out Anemia DVT/PE history in the past She takes Eliquis 5 mg twice a day, on hold, on therapeutic lovenox Hypothyroidism: Continue levothyroxine 100 mcg Full code Cardiac diet DVT prophylaxis therapeutic Lovenox Attestations Medical Necessity Statement*: Patient requires hospitalization for acute respiratory failure secondary to pulmonary edema, pneumonia, COVID-19 Coding Level of Care Code Acute [place] for g Fwd Diagnoses Acute respiratory failure with hypoxia J96.01 Atypical chest pain R07.89 Aortic valve stenosis I35.0 Cardiac valve disease etiology: nonrheumatic Acute dyspnea R06.00 Gram-positive bacteremia R78.81
--- NOTE | 2020-07-06 11:10 | PC.NURSE ---
pt off unit for CT
[2020-07-06 11:19] LABS: Vancomycin Trough 25.6 ug/mL (10-15)
--- NOTE | 2020-07-06 11:37 | PC.NURSE ---
pt returned to room from Ct and is up to chair for lunch.
[2020-07-06] MEDS: zinc gluconate 50 mg Tablet PO (11:53)
[2020-07-06 16:47] LABS: Coronavirus Test Green County Not Detected
[2020-07-06] MEDS: ascorbic acid 500 mg Tablet 1000 MG PO (17:46)
--- NOTE | 2020-07-06 18:28 | PC.NURSE ---
2nd covid send out test came back negative. physician notified. recieved order to d/c isolation precautions.
[2020-07-06] MEDS: gabapentin 300 mg Capsule PO (22:00)
[2020-07-06] MEDS: atorvastatin 40 mg Tablet 20 MG PO (22:00)
[2020-07-07] VITALS (14 sets, daily range): BP systolic 92–132; BP diastolic 47–77; PULSE 65–78; RESP 17–24; TEMP 36.4–36.8; O2SAT 93–99
[2020-07-07 04:05] LABS: ABG PCO2 52.2 mmHg (35-45); ABG PH Result 7.42 (7.35-7.45); Arterial Blood Gas Hematocrit 27.8 % (37-47); Base Excess ABG 8.2 mmol/L (-2.0-2.0); Blood Gas Allen Test Pos; Blood Gas Sample Site Radial, right; Blood Gas Sample Type Arterial; HCO3 ABG 33.8 mmol/L (22-26); Oxygen Device NC; PO2 ABG 68.2 mmHg (80.0-100.0)
[2020-07-07 06:31] LABS: Basophils % 0.1 %; Eosinophils % 0.3 %; Hemoglobin 9.3 g/dL (11.5-15.3); Lymphocytes # 1.5 10^3/uL (0.8-4.8); Mean Corpuscular Hemoglobin 24.6 pg (28.0-34.0); Mean Corpuscular Volume 79.4 fL (81-99); Mean Platelet Volume 11.1 fL (7.4-10.4); Monocytes # 1.2 10^3/uL (0.2-0.9); Monocytes % 10.3 %; Neutrophils # 8.78 10^3/uL (1.8-7.7); Nucleated Red Blood Cells % 0 %; Platelet Count 282 10^3/cmm (130-400); Red Blood Count 3.78 10^6/uL (4.1-5.3); Red Cell Distribution Width 18.3 % (12.1-15.1); White Blood Count 11.6 10^3/uL (4.0-10.0)
[2020-07-07] MEDS: spironolactone 25 mg Tablet PO (06:33)
[2020-07-07] MEDS: levothyroxine 100 mcg Tablet PO (06:33)
[2020-07-07] MEDS: duloxetine 60 mg Capsule PO (06:33)
[2020-07-07] MEDS: enoxaparin 120 mg/0.8 mL Syringe SUBCUT ×2 (06:34→17:50)
[2020-07-07] MEDS: enoxaparin 30 mg/0.3 mL Syringe SUBCUT ×2 (06:35→17:50)
[2020-07-07] MEDS: buPROPion SR (12 HR) 150 mg Tablet PO ×2 (06:38→21:58)
[2020-07-07] MEDS: pantoprazole DR 40 mg Tablet PO ×2 (06:38→21:58)
--- NOTE | 2020-07-07 07:00 | XR_ITS ---
WS: [id number] Exam: XR chest 1V portable [id number] Date/Time of Exam: 07/07/2020 7:00 AM Reason For Exam: sob Comparison 07/06/2020. Extensive bilateral airspace infiltrates noted. No significant change. Right-sided pleural thickening or pleural effusion stable in appearance. Trace left basal pleural effusion. Normal cardiomediastina l structures and regional bony elements. XR/XR chest 1V portable [id number] IMPRESSION: 1. Extensive bilateral pulmonary infiltrates demonstrating very little change. 2. Right-sided pleural thickening and/or pleural effusion unchanged in appearan ce. Trace left pleural effusion.
[2020-07-07 07:01] LABS: Alanine Aminotransferase 17 U/L (0-33); Albumin Level 2.9 g/dL (3.5-5.2); Alkaline Phosphatase 296 IU/L (35-105); Anion Gap 8.7 (5-19); Aspartate Amino Transferase 28 U/L (0-32); Blood Urea Nitrogen 23 mg/dL (6-20); C Reactive Protein 76.5 mg/L (0.0-4.9); Calcium 9.4 mg/dL (8.5-10.5); Carbon Dioxide 33 mmol/L (22-29); Chloride 100 mmol/L (98-107); Globulin 3.6 g/dL (1.3-4.6); Glomerular Filtration Rate 65.5 mL/min (90-130); Glucose 95 mg/dL (65-115); Magnesium 2.1 mg/dL (1.7-2.3); Osmolality Calculated 289 mOsm/kg (285-295); Phosphorus 2.4 mg/dL (2.5-4.5); Potassium 3.7 mmol/L (3.5-5.1); Sodium 138 mmol/L (136-145); Total Bilirubin 0.4 mg/dL (0.15-1.2); Total Protein 6.5 g/dL (6.6-8.7)
[2020-07-07 07:07] LABS: NT Pro B Type Natriuretic Pept 3287 pg/mL (0-125); Procalcitonin 0.45 ng/mL (0-0.5)
[2020-07-07 08:23] LABS: Lactate (Lactic Acid level) 1.3 mmol/L (0.5-2.2)
[2020-07-07] MEDS: dexamethasone 4 mg Tablet 6 MG PO (09:11)
[2020-07-07] MEDS: propranolol 20 mg Tablet 10 MG PO ×2 (09:11→17:51)
[2020-07-07] MEDS: losartan 50 mg Tablet 25 MG PO (09:12)
[2020-07-07] MEDS: zinc gluconate 50 mg Tablet PO (09:12)
[2020-07-07] MEDS: potassium chloride ER 20 mEq Tablet 40 MEQ PO ×2 (09:12→21:58)
[2020-07-07] MEDS: aspirin 81 mg EC Tablet PO (09:12)
[2020-07-07] MEDS: ascorbic acid 500 mg Tablet 1000 MG PO ×2 (09:12→17:52)
[2020-07-07] MEDS: bumetanide 0.25 mg/mL SDV 4 mL 1 MG IV ×2 (09:13→22:10)
[2020-07-07] MEDS: metOLazone 5 MG Tablet PO (09:14)
[2020-07-07] MEDS: azithromycin 500 MG in sodium chloride 0.9% 250 ML 250 MG IV (09:14)
--- NOTE | 2020-07-07 10:50 | PM.PN ---
Subjective Subjective: Interval history: This morning patient tells me that she was up into a chair yesterday, she is feeling better, is down to 4.5 L, no fevers, chills, nausea, vomiting Vitals/I&O/Wt Last Vital Signs Temp 97.6 F 07/07/20 07:58 Pulse 77 07/07/20 08:53 Resp 17 07/07/20 08:52 BP 112/70 07/07/20 09:12 Pulse Ox 93 07/07/20 08:52 07/06/20 07/07/20 07/07/20 22:59 06:59 14:59 Intake Total 120 / 1020 797 / 1817 60 / 60 Output Total 1500 / 5250 2500 / 7750 1100 / 1100 Balance -1380 / -4230 -1703 / -5933 -1040 / -1040 Physical Exam Const: COMMON NORMALS: no acute distress and patient oriented x3 HENMT: COMMON NORMALS: normocephalic HEAD & SCALP: normocephalic Neck/C-Spine: COMMON NORMALS: no JVD Resp: COMMON NORMALS: normal respiratory effort, No retractions and No use of accessory muscles AUSCULTATION: crackles Cardio: COMMON NORMALS: no JVD, regular rate, regular rhythm, S1 normal heart sound present and S2 normal heart sound present RATE: regular rate RHYTHM: regular rhythm HEART SOUNDS: S1 normal heart sound present and S2 normal heart sound present GI: COMMON NORMALS: Normal to inspection, nondistended, normoactive bowel sounds present, Soft to palpation, non-tender, No hepatosplenomegaly present, no masses and no bruits PALPATION: Yes Soft to palpation and Yes No hepatosplenomegaly present Extremity: COMMON NORMALS: capillary refill normal, no clubbing, cyanosis or edema and no calf tenderness NARRATIVE EXTREMITY EXAM: 2+ pitting edema Neuro: COMMON NORMALS: patient oriented x3 Psych: COMMON NORMALS: mental status grossly normal Urinary Catheter Management^: [place]: Cath Placed During This Visit: yes Reason for Continuing Indwelling Catheter: Other Urinary Catheter Date of Insertion: 07/05/20 Urinary Catheter Time of Insertion: 10:30 Data : 07/07/20 06:11 07/07/20 06:11 Micro: Microbiology 07/05/20 09:50 Blood Culture - Preliminary Blood NEGATIVE TO DATE 07/05/20 09:45 Blood Culture - Preliminary Blood NEGATIVE TO DATE A&P Assessment and plan (1) Acute respiratory failure with hypoxia: Does not use oxygen at home, is now up to 6 L Rapid Covid negative negative, PCR negative, repeat Covid negative CT angiogram of the chest does not show pulmonary emboli, does show consolidation that superimposed over bilateral pleural effusions, right pleural effusion exhibits thickened enhancing wall suggesting empyema, appears stable compared to prior CT scan dated from 12/14/2019, new developing patchy diffuse groundglass opacities most prominently within the upper hemithorax is, indicated of bilateral interstitial pneumonia Cardiac echocardiogram shows an EF of 50%, grade 1 out of 4 diastolic dysfunction, moderate to severe aortic stenosis,, mild pulmonary hypertension, aortic valve area 1 cm? Blood cultures are positive for Staphylococcus species coagulase-negative, 2 species Chest x-ray this morning shows diffuse pulmonary edema and or bilateral pulmonary infiltrates improving CT chest: 1. Progressed hazy groundglass infiltrates in the perihilar regions and upper lobes. This is progressed since July 03, 2020. 2. Small bilateral pleural effusions slightly improved with subsegmental atelectasis in the lung bases. Enhancement of the right pleura is unchanged suspicious for empyema. Chest ultrasound on right Small right pleural effusion with pleural thickening and some internal debris. This appears partially free-flowing BNP is 3287 is -4743cc, since admission -Findings are concerning for acute flash from edema likely secondary to aortic stenosis, pneumonia -Unlikely to have an empyema for this long Plan: -Stop Decadron, continue oxygen, monitor respiratory status very closely as she is a high risk of intubation, BiPAP during the night -Continue vancomycin, Rocephin, azithromycin, de-escalate next 24 hours -Follow sputum, MRSA nares, urine bacterial antigens -Repeat blood cultures negative so far, first set of blood cultures all for positive for coagulase-negative staph, will have microbiology getting identification, contamination versus infection -Hold Eliquis, switch to therapeutic Lovenox in anticipation for possible thoracocentesis on the right based on clinical progress - Bumex 1 mg twice daily, metolazone, strict I's and O's, fluid restrictions to 1500 cc -Will discuss with cardiology about TAVR once patient's been adequately diuresed -Continue PT OT, up out of bed -Incentive spirometer, flutter valve -Advair, albuterol -Vitamin C, zinc -Full code -Lovenox for DVT prophylaxis Status: Acute (2) Atypical chest pain: Status: Acute (3) Aortic valve stenosis: Developing flash pulmonary edema from aortic stenosis, once adequately diuresed, will have to talk to cardiology about TAVR, as patient has a high risk of recurrent flash pulmonary edema and readmission Status: Acute Qualifiers: Cardiac valve disease etiology: nonrheumatic Qualified Code(s): I35.0 - Nonrheumatic aortic (valve) stenosis (4) Acute dyspnea: Status: Acute (5) Gram-positive bacteremia: Status: Acute Additional A&P Information Diastolic congestive heart failure exacerbation bumex, metolazone No active infarctive or ischemic changes on EKG, troponin with negative delta PE has been ruled out Anemia DVT/PE history in the past She takes Eliquis 5 mg twice a day, on hold, on therapeutic lovenox Hypothyroidism: Continue levothyroxine 100 mcg Full code Cardiac diet DVT prophylaxis therapeutic Lovenox Attestations Medical Necessity Statement*: Patient requires hospitalization for acute respiratory failure secondary acute flash pulmonary edema Coding Level of Care Code Acute [employer] for [facility] Fwd Diagnoses Acute respiratory failure with hypoxia J96.01 Atypical chest pain R07.89 Aortic valve stenosis I35.0 Cardiac valve disease etiology: nonrheumatic Acute dyspnea R06.00 Gram-positive bacteremia R78.81
[2020-07-07] MEDS: cefTRIAXone 1,000 MG in sodium chloride 0.9% (plus) 50 ML 100 MG IV (11:38)
[2020-07-07] MEDS: oxyCODONE-APAP 5-325 mg Tablet 1 TAB PO ×2 (14:33→18:41)
[2020-07-07] MEDS: ondansetron 2 mg/ML SDV 2 mL 4 MG IVP (18:41)
[2020-07-07] MEDS: gabapentin 300 mg Capsule PO (21:58)
[2020-07-07] MEDS: atorvastatin 40 mg Tablet 20 MG PO (21:59)
[2020-07-08] VITALS (17 sets, daily range): BP systolic 91–129; BP diastolic 47–68; PULSE 62–74; RESP 17–21; TEMP 36.2–36.8; O2SAT 91–100
--- NOTE | 2020-07-08 00:11 | PC.NURSE ---
PATIENT UPDATE: THIS NURSE WAS NOTIFIED BY INSTRUCTION ASSISTANT PRINCIPAL THAT PATIENTS NOSE WAS BLEEDING. UPON ENTERING ROOM PATIENT HAD OXYGEN VIA NASAL CANNULA AT [address]L [address] WITH BLOOD IN LEFT NARE, ON GOWN AND BOTH HANDS. PATIENT WAS SAT UP, ASSESSED AND CLEANED UP. THIS NURSE HELD PATIENTS NOSE UNTIL BLEEDING STOPPED AND ASKED IF PATIENT FELT OK OR NEEDED ANYTHING. PATIENT STATED NO I AM OK. THIS NURSE INFORMED PATIENT IF SHE FELT ANY BLEEDING TO PUT HER CALL LIGHT ON. PATIENT PUT CALL LIGHT ON THRICE MORE. ON THIRD OCCURRENCE THIS NURSE NOTICED A THIN STRINGY CLOT AT BASE OF LEFT NARE. REQUESTED CHARGE NURSE TO COME INTO ROOM AND SHE ASKED PATIENT IF SHE HAD SWALLOWED ANY AND SHE REPLIED YES. USED PEN LIGHT TO LOOK INTO THROAT AND BLOOD WAS VISIBLE. VITALS ARE STABLE AT THIS TIME TEMP: 97.5, HR 65, RESP 20, O2 96% ON 5L HUMITIFIED O2 VIA NC AND BP 115/63. THIS NURSE CALLED OVERNIGHT HOSPITALIST AND UPDATED HIM ON PATIENT AND HE GAVE TELEPHONE ORDERS TO HOLD ANTICOAGULANTS. INSTRUCTION ASSISTANT PRINCIPAL RETOOK VITALS AT 0034 AND THEY HAVE REMAINED STABLE HR 65, RESP 20 O2 AT 96% AND BP 121/66. THIS NURSE REASSESSED PATIENT AND NOSE IN NOT BLEEDING AT THIS TIME, PATIENT IS RESTING WITH EYES CLOSED IN HIGH FOWLERS POSITION.
[2020-07-08 04:32] LABS: ABG PH Result 7.31 (7.35-7.45); Arterial Blood Gas Hematocrit 27.4 % (37-47); Base Excess ABG 7.6 mmol/L (-2.0-2.0); Blood Gas Allen Test Pos; Blood Gas Operator Identificat HARKR; Blood Gas Sample Site Radial, right; Blood Gas Sample Type Arterial; HCO3 ABG 35.3 mmol/L (22-26); Oxygen Device NC; PO2 ABG 84.5 mmHg (80.0-100.0)
[2020-07-08 04:38] LABS: ABG PCO2 70.2 mmHg (35-45)
[2020-07-08 05:35] LABS: Basophils % 0.1 %; Eosinophils % 0.2 %; Hematocrit 29.5 % (37.0-47.0); Lymphocytes # 1.3 10^3/uL (0.8-4.8); Lymphocytes % 14.4 %; Mean Corpuscular HGB Conc 30.5 g/dL (30.0-36.0); Mean Corpuscular Hemoglobin 24.7 pg (28.0-34.0); Mean Platelet Volume 11.3 fL (7.4-10.4); Monocytes # 0.8 10^3/uL (0.2-0.9); Monocytes % 9.6 %; Neutrophils # 6.58 10^3/uL (1.8-7.7); Neutrophils % 75.4 %; Nucleated Red Blood Cells % 0 %; Platelet Count 255 10^3/cmm (130-400); Red Blood Count 3.64 10^6/uL (4.1-5.3); Red Cell Distribution Width 18.5 % (12.1-15.1); White Blood Count 8.7 10^3/uL (4.0-10.0)
[2020-07-08 05:47] LABS: INR 1.05 (0.8-1.2)
[2020-07-08 06:08] LABS: NT Pro B Type Natriuretic Pept 3201 pg/mL (0-125); Procalcitonin 0.44 ng/mL (0-0.5)
[2020-07-08 06:13] LABS: Alanine Aminotransferase 17 U/L (0-33); Albumin Level 2.8 g/dL (3.5-5.2); Alkaline Phosphatase 294 IU/L (35-105); Anion Gap 9.5 (5-19); Aspartate Amino Transferase 33 U/L (0-32); Blood Urea Nitrogen 25 mg/dL (6-20); C Reactive Protein 72.3 mg/L (0.0-4.9); Calcium 9.5 mg/dL (8.5-10.5); Carbon Dioxide 34 mmol/L (22-29); Chloride 99 mmol/L (98-107); Globulin 3.6 g/dL (1.3-4.6); Glomerular Filtration Rate 65.5 mL/min (90-130); Glucose 93 mg/dL (65-115); Magnesium 2.1 mg/dL (1.7-2.3); Osmolality Calculated 290 mOsm/kg (285-295); Phosphorus 3.4 mg/dL (2.5-4.5); Potassium 4.5 mmol/L (3.5-5.1); Sodium 138 mmol/L (136-145); Total Bilirubin 0.4 mg/dL (0.15-1.2); Total Protein 6.4 g/dL (6.6-8.7)
[2020-07-08 06:15] LABS: Lactate (Lactic Acid level) 0.9 mmol/L (0.5-2.2)
[2020-07-08] MEDS: spironolactone 25 mg Tablet PO (06:41)
[2020-07-08] MEDS: levothyroxine 100 mcg Tablet PO (06:41)
[2020-07-08] MEDS: duloxetine 60 mg Capsule PO (06:41)
[2020-07-08] MEDS: buPROPion SR (12 HR) 150 mg Tablet PO ×2 (06:41→21:14)
[2020-07-08] MEDS: pantoprazole DR 40 mg Tablet PO ×2 (06:43→21:14)
--- NOTE | 2020-07-08 07:00 | XR_ITS ---
WS: [id number] Exam: XR chest 1V portable [id number] Date/Time of Exam: 07/08/2020 6:18 AM Reason For Exam: sob Comparison 07/07/2020. Extensive pulmonary infiltrates throughout both lungs demonstrate very little change. The lungs remai n fully inflated. Cardiomediastinal structures are unremarkable for a portable AP technique. Again no karma is right-sided pleural thickening or pleural effusion. Monitoring leads superimpose the chest. XR/XR chest 1V portable [id number] IMPRESSION: 1. No significant change since the prior study.
[2020-07-08] MEDS: ascorbic acid 500 mg Tablet 1000 MG PO ×2 (08:37→17:11)
[2020-07-08] MEDS: zinc gluconate 50 mg Tablet PO (08:37)
[2020-07-08] MEDS: ondansetron 2 mg/ML SDV 2 mL 4 MG IVP (08:37)
[2020-07-08] MEDS: losartan 50 mg Tablet 25 MG PO (08:38)
[2020-07-08] MEDS: propranolol 20 mg Tablet 10 MG PO ×2 (08:38→17:12)
[2020-07-08] MEDS: bumetanide 0.25 mg/mL SDV 4 mL 1 MG IV ×2 (08:38→17:11)
[2020-07-08] MEDS: dexamethasone 4 mg Tablet 6 MG PO (08:42)
[2020-07-08 08:45] LABS: Vancomycin Trough 26.3 ug/mL (10-15)
[2020-07-08] MEDS: potassium chloride ER 20 mEq Tablet 40 MEQ PO ×2 (08:48→21:14)
[2020-07-08] MEDS: metOLazone 5 MG Tablet 10 MG PO (09:14)
[2020-07-08] MEDS: azithromycin 250 mg Tablet 500 MG PO (09:15)
[2020-07-08] MEDS: cefTRIAXone 1,000 MG in sodium chloride 0.9% (plus) 50 ML 100 MG IV (11:10)
--- NOTE | 2020-07-08 11:13 | PC.OT ---
OT TREATMENT ATTEMPTED. PATIENT WAS SLEEPING SOUNDLY. WILL ATTEMPT AGAIN IN P.M.
[2020-07-08] MEDS: oxyCODONE-APAP 5-325 mg Tablet 1 TAB PO ×2 (11:43→21:13)
[2020-07-08 11:50] LABS: ABG PH Result 7.36 (7.35-7.45); Base Excess ABG 9.1 mmol/L (-2.0-2.0); Blood Gas Allen Test Pos; Blood Gas Operator Identificat glc; Blood Gas Sample Site Radial, left; Blood Gas Sample Type Arterial; HCO3 ABG 36.1 mmol/L (22-26); Oxygen Device NC; PO2 ABG 71.7 mmHg (80.0-100.0)
--- NOTE | 2020-07-08 12:12 | PM.PN ---
Subjective Subjective: Interval history: This morning patient was examined, she had episodes of episodes of shortness of breath overnight, requiring BiPAP, this morning she was taken off BiPAP for breakfast, she tells me that she is feeling better, currently on 5 L, has some generalized edema that persists, no chest pain, no palpitation complaints Medications: Reviewed: Yes Medication Review Details: Generic Name Dose Route Start Last Admin Trade Name Freq PRN Reason Stop Dose Admin Apixaban 5 mg 07/03/20 06:00 07/04/20 05:22 Apixaban 5 Mg Ta blet PO 5 mg BID@ [facility] Administration Aspirin 81 mg 07/03/20 10:15 07/04/20 07:55 Aspirin 81 Mg Ec Tablet PO 81 mg DAILY [facility] Administration Atorvastatin Calci um 20 mg 07/03/20 22:00 07/03/20 21:32 Atorvastatin 40 Mg Tablet PO 20 mg DAILY@ [facility] Administration Bupropion HCl 150 mg 07/03/20 06:00 07/04/20 05:22 Bupropion Sr (12 Hr) 150 Mg Tablet PO 150 mg BID@ [facility] Administration Dexamethasone 6 mg 07/03/20 09:00 07/04/20 07:58 Dexamethasone 4 Mg Tablet PO 6 mg DAILY [facility] Administration Duloxetine HCl 60 mg 07/03/20 06:00 07/04/20 05:22 Duloxetine 60 Mg Capsule PO 60 mg DAILY@06 [facility] Administration Furosemide 40 mg 07/03/20 13:30 07/04/20 05:22 Furosemide 40 Mg Tablet PO 40 mg Q12H [facility] Administration Gabapentin 300 mg 07/03/20 22:00 07/03/20 21:32 Gabapentin 300 M g Capsule PO 300 mg BEDTIME@ [facility] Administration Levothyroxine Sodi um 100 mcg 07/03/20 06:00 07/04/20 05:22 Levothyroxine 10 0 Mcg Tablet PO 100 mcg DAILY@06 [facility] Administration Losartan Potassium 25 mg 07/03/20 09:00 07/04/20 07:55 Losartan 50 Mg T ablet PO 25 mg DAILY [facility] Administration Oxycodone/Acetamin ophen 1 tab 07/03/20 05:12 07/03/20 22:40 Oxycodone-Apap 5 -325 Mg Tablet PO 1 tab Q4H PRN Administration Pain Pantoprazole Sodiu m 40 mg 07/03/20 06:00 07/04/20 05:[address] 40 Mg Tablet PO 40 mg BID@ [facility] Administration Propranolol HCl 10 mg 07/03/20 18:00 07/04/20 07:55 Propranolol 20 M g Tablet PO 10 mg BID [facility] Administration Spironolactone 25 mg 07/03/20 06:00 07/04/20 05:22 Spironolactone 2 5 Mg Tablet PO 25 mg DAILY@06 [facility] Administration Vitals/I&O/Wt Last Vital Signs Temp 98.0 F 07/08/20 11:05 Pulse 62 07/08/20 11:05 Resp 17 07/08/20 11:43 BP 91/47 07/08/20 11:05 Pulse Ox 96 07/08/20 11:05 07/07/20 07/08/20 07/08/20 22:59 06:59 14:59 Intake Total 560 / 920 60 / 60 Output Total 550 / 2200 Balance 10 / -1280 60 / 60 Physical Exam Const: COMMON NORMALS: no acute distress and patient oriented x3 HENMT: COMMON NORMALS: normocephalic HEAD & SCALP: normocephalic Neck/C-Spine: COMMON NORMALS: no JVD Resp: COMMON NORMALS: normal respiratory effort, No retractions and No use of accessory muscles AUSCULTATION: crackles Cardio: COMMON NORMALS: no JVD, regular rate, regular rhythm, S1 normal heart sound present and S2 normal heart sound present RATE: regular rate RHYTHM: regular rhythm HEART SOUNDS: S1 normal heart sound present and S2 normal heart sound present GI: COMMON NORMALS: Normal to inspection, nondistended, normoactive bowel sounds present, Soft to palpation, non-tender, No hepatosplenomegaly present, no masses and no bruits PALPATION: Yes Soft to palpation and Yes No hepatosplenomegaly present Extremity: COMMON NORMALS: capillary refill normal, no clubbing, cyanosis or edema and no calf tenderness NARRATIVE EXTREMITY EXAM: 1+ pitting edema Neuro: COMMON NORMALS: patient oriented x3 Psych: COMMON NORMALS: mental status grossly normal Urinary Catheter Management^: [place]: Cath Placed During This Visit: yes, but has since been removed by the nurse Reason for Continuing Indwelling Catheter: Assist healing open wound Urinary Catheter Date of Insertion: 07/08/20 Urinary Catheter Time of Insertion: 05:40 Date Urinary Catheter Removed: 07/08/20 Time Urinary Catheter Discontinued: 04:45 Data : 07/08/20 05:20 07/08/20 05:20 Micro: Microbiology 07/03/20 03:53 Blood Culture - Preliminary Blood Staphylococcus sp coag neg Staphylococcus sp coag neg#2 Staphylococcus sp coag neg#3 07/07/20 12:00 Bacterial Antigens - Final Urine,Voided 07/03/20 03:35 Blood Culture - Preliminary Blood Staphylococcus haemolyticus Staphylococcus epidermidis Staph capitis sub ureolyticus A&P Assessment and plan (1) Acute respiratory failure with hypoxia: Had hypercarbic respiratory failure overnight, with PCO2 is in the 70s, repeat ABG shows pH improved to 7.36, PCO2 pending Does not use oxygen at home, is now up to 5 L Rapid Covid negative negative, PCR negative, repeat Covid negative CT angiogram of the chest does not show pulmonary emboli, does show consolidation that superimposed over bilateral pleural effusions, right pleural effusion exhibits thickened enhancing wall suggesting empyema, appears stable compared to prior CT scan dated from 12/14/2019, new developing patchy diffuse groundglass opacities most prominently within the upper hemithorax is, indicated of bilateral interstitial pneumonia Cardiac echocardiogram shows an EF of 50%, grade 1 out of 4 diastolic dysfunction, moderate to severe aortic stenosis,, mild pulmonary hypertension, aortic valve area 1 cm? Blood cultures are positive for Staphylococcus species coagulase-negative, 2 species Chest x-ray this morning shows diffuse pulmonary edema and or bilateral pulmonary infiltrates improving CT chest: 1. Progressed hazy groundglass infiltrates in the perihilar regions and upper lobes. This is progressed since July 03, 2020. 2. Small bilateral pleural effusions slightly improved with subsegmental atelectasis in the lung bases. Enhancement of the right pleura is unchanged suspicious for empyema. Chest ultrasound on right Small right pleural effusion with pleural thickening and some internal debris. This appears partially free-flowing Diuresed over 9 L yesterday -Findings are concerning for acute flash from edema likely secondary to aortic stenosis, pneumonia -Unlikely to have an empyema for this long Plan: -continue BiPAP, monitor respiratory status very closely as she is a high risk of intubation, BiPAP during the night -Stop vancomycin, continue Rocephin, azithromycin, de-escalate next 24 hours -Follow sputum, MRSA nares, urine bacterial antigens -Repeat blood cultures negative so far, first set of blood cultures all for positive for coagulase-negative staph, will have microbiology getting identification, contamination versus infection -Lovenox on hold due to nosebleeds, continue to hold Eliquis - Bumex 1 mg every 8 hours, metolazone, with midodrine, due to a few low blood pressures strict I's and O's, fluid restrictions to 1500 cc -Cardiology consulted -Continue PT OT, up out of bed -Incentive spirometer, flutter valve -Advair, albuterol -Vitamin C, zinc -Full code -Lovenox for DVT prophylaxis Status: Acute (2) Atypical chest pain: Status: Acute (3) Aortic valve stenosis: Developing flash pulmonary edema from aortic stenosis, once adequately diuresed, will have to talk to cardiology about TAVR, as patient has a high risk of recurrent flash pulmonary edema and readmission Status: Acute Qualifiers: Cardiac valve disease etiology: nonrheumatic Qualified Code(s): I35.0 - Nonrheumatic aortic (valve) stenosis (4) Acute dyspnea: Status: Acute (5) Gram-positive bacteremia: Status: Acute Additional A&P Information Diastolic congestive heart failure exacerbation bumex, metolazone No active infarctive or ischemic changes on EKG, troponin with negative delta PE has been ruled out Anemia DVT/PE history in the past She takes Eliquis 5 mg twice a day, on hold, on therapeutic lovenox, Lovenox on hold due to nosebleeds Hypothyroidism: Continue levothyroxine 100 mcg Full code Cardiac diet DVT prophylaxis therapeutic Lovenox Attestations Medical Necessity Statement*: Patient requires hospitalization due to acute respiratory failure secondary to pulmonary edema, secondary aortic stenosis Coding Level of Care Code Acute Electronics Lead for [facility] Fw Diagnoses Acute respiratory failure with hypoxia J96.01 Atypical chest pain R07.89 Aortic valve stenosis I35.0 Cardiac valve disease etiology: nonrheumatic Acute dyspnea R06.00 Gram-positive bacteremia R78.81
[2020-07-08 13:08] LABS: ABG PCO2 64.6 mmHg (35-45)
[2020-07-08] MEDS: midodrine 5 mg TABLET PO ×2 (14:04→21:14)
[2020-07-08] MEDS: azithromycin 250 mg Tablet PO (14:04)
[2020-07-08] MEDS: acetaZOLAMIDE 250 mg Tablet PO (14:04)
--- NOTE | 2020-07-08 17:33 | P.CONIM_ITS ---
Providers/Reason For Consult Consulting Physican/Specialty*: Dr. Hassan, cardiology Reason for Consult*: Severe aortic stenosis and shortness of breath Attending Physician: Dinesh Pereyra MD Primary Care Provider: Liza Davila NP History of Present Illness History of Present Illness Maria G Merritt is a 54 year old female with past medical history of hypertension, hyperlipidemia, aortic stenosis, COPD, morbid obesity, lower extremity lymphedema, chronic migraines, history of DVT and PE in 2018 on Eliquis, depression, anxiety and chronic active smoking and chronic chest pain presented with complaints of chest discomfort and shortness of breath. She was admitted on 03 July. She is a poor historian. 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 She complains of lower extremity edema,shortness of breath and right sided chest pain that is pleuritic in nature and sometimes dull ache unrelated to exertion. She tells me this happened gradually over days to weeks and was not sudden onset in nature. She is able to ambulate using a walker. She tells me today she had low grade fever, chills and nausea at home as well. Labs showed BNP 1400. She has been diuresed since admission. Length of stay - 7.3 L, urine output 2.2 L -1.2 L. COVID 19 antigen in 05/18/20 and 07/03/20 and COVID 19 PCR from 07/03 and 07/05 have been negative so far. She is being treated with dexamethasone, broad specturum antibiotics as well. ABG this morning with pH of 7.36, PCO2 65, PO2 72 on FiO2 36%. NT proBNP on 03 July of 1421. Echocardiogram was repeated in this admission and was tought to be moderaetly to severely stenotic. Review of Systems Const: Reports: fever(s), chills, body aches, change in appetite, fatigue and malaise Eyes: Denies: change in vision ENMT: Denies: throat pain Card: Reports: chest pain, swelling of feet/ankles, lightheadedness, dyspnea on exertion and orthopnea Resp: Reports: dyspnea, non-productive cough and pain on inspiration GI: Reports: nausea; Denies: abdominal pain, vomiting, hematemesis, hematochezia or melena : Denies: flank pain or hematuria Musc: Reports: extremity swelling; Denies: neck pain Skin/Breast: Reports: lesions Neuro: Denies: headache(s) Psych: Denies: anxiety Endo: Denies: polyuria Elvis/Lymph: Denies: easy bruising All/Imm: Denies: urticaria Meds/Allergies Home Medications and Allergies Home Medications Medication Instructions Recorded Confirmed Last Taken Type gabapentin 300 mg capsule 300 mg PO BEDTIME@22 cap 06/17/19 07/03/20 05/17/20 History levothyroxine 100 mcg capsule 100 mcg PO DAILY@06/17/19 07/03/20 05/18/20 History montelukast 10 mg tablet 10 mg PO DAILY@06/17/19 07/03/20 05/17/20 History Eliquis 5 mg PO BID@10/07/19 07/03/20 05/18/20 History baclofen 10 mg PO TID PRN 10/07/19 07/03/20 05/18/20 History bupropion HCl 150 mg PO BID@01/21/20 07/03/20 05/18/20 History omeprazole 20 mg PO BID@,01/21/20 07/03/20 05/18/20 History oxycodone-acetaminophen 1 tab PO Q4H PRN 01/21/20 07/03/20 05/18/20 History albuterol sulfate 90 mcg/actuation 2 puff INHALATION Q6H PRN 02/05/20 07/03/20 05/18/20 History aerosol inhaler loratadine 10 mg capsule 10 mg PO DAILY@02/05/20 07/03/20 05/18/20 History spironolactone 25 mg tablet 25 mg PO DAILY@02/18/20 07/03/20 05/18/20 History zonisamide 100 mg capsule See Rx Instructions .ROUTE 03/23/20 07/03/20 05/17/20 Rx .COMPLEX #540 cap aripiprazole [Abilify] 5 mg PO DAILY@05/18/20 07/03/20 05/17/20 History paroxetine HCl [Paxil] 10 mg PO BEDTIME@05/18/20 07/03/20 05/17/20 History rosuvastatin [Crestor] 40 mg PO DAILY@22 05/18/20 07/03/20 05/17/20 History losartan 25 mg tablet 25 mg PO DAILY #90 tab 06/22/20 07/03/20 Unknown Rx albuterol sulfate 2.5 mg INHALATION Q6H PRN 07/03/20 07/03/20 Unknown History fluticasone propionate 1 - 2 spray INTRANASAL DAILY PRN 07/03/20 07/03/20 Unknown History nitroglycerin [Nitrostat] 0.4 mg SUBLINGUAL Q5M PRN 07/03/20 07/03/20 Unknown History potassium chloride [Klor-Con M20] 20 meq PO BID 07/03/20 07/03/20 Unknown History propranolol 10 mg PO BID 07/03/20 07/03/20 Unknown History sennosides-docusate sodium 1 tab PO DAILY PRN 07/03/20 07/03/20 Unknown History [Senexon-S] simvastatin 40 mg PO DAILY 07/03/20 07/03/20 Unknown History Allergies Allergy/AdvReac Type Severity Reaction Status Date / Time adhesive tape Allergy Unknown Verified 06/17/20 12:25 influenza virus vaccine qs Allergy Unknown Verified 06/17/20 12:25 [id number] (36 mos, up) [From Single Use EZ Flu] Flu Allergy Unknown Unknown Uncoded 07/08/20 13:34 Current Medications Current Medications Generic Name Dose Route Start Last Admin Trade Name Freq PRN Reason Stop Dose Admin Acetazolamide 250 mg 07/08/20 12:35 07/08/20 14:04 Acetazolamide 250 Mg Tablet PO 07/09/20 09:01 250 mg DAILY VALDO Administration Albuterol Sulfate 2.5 mg 07/06/20 11:13 07/06/20 15:47 Albuterol 2.5 Mg/0.5 Ml Neb INHALATION 2.5 mg Q4H.RESPIRATORY PRN Administration SHORTNESS OF BREATH Apixaban 5 mg 07/03/20 06:00 07/05/20 07:15 Apixaban 5 Mg Tablet PO 5 mg BID@ VALDO Administration Ascorbic Acid 1,000 mg 07/06/20 18:00 07/08/20 17:11 Ascorbic Acid 500 Mg Tablet PO 1,000 mg BID VALDO Administration Aspirin 81 mg 07/03/20 10:15 07/07/20 09:12 Aspirin 81 Mg Ec Tablet PO 81 mg DAILY VALDO Administration Atorvastatin Calcium 20 mg 07/03/20 22:00 07/07/20 21:59 Atorvastatin 40 Mg Tablet PO 20 mg DAILY@22 VALDO Administration Azithromycin 250 mg 07/08/20 13:00 07/08/20 14:04 Azithromycin 250 Mg Tablet PO 250 mg Q24H VALDO Administration Bumetanide 1 mg 07/08/20 16:30 07/08/20 17:11 Bumetanide 0.25 Mg/Ml Sdv 4 Ml IV 1 mg Q8H VALDO Administration Bupropion HCl 150 mg 07/03/20 06:00 07/08/20 06:41 Bupropion Sr (12 Hr) 150 Mg Tablet PO 150 mg BID@ VALDO Administration Dexamethasone 6 mg 07/03/20 09:00 07/08/20 08:42 Dexamethasone 4 Mg Tablet PO 6 mg DAILY VALDO Administration Duloxetine HCl 60 mg 07/03/20 06:00 07/08/20 06:41 Duloxetine 60 Mg Capsule PO 60 mg DAILY@06 VALDO Administration Enoxaparin Sodium 30 mg 07/05/20 19:00 07/07/20 17:50 Enoxaparin 30 Mg/0.3 Ml Syringe SUBCUT 30 mg Q12H VALDO Administration Enoxaparin Sodium 120 mg 07/05/20 19:00 07/07/20 17:50 Enoxaparin 120 Mg/0.8 Ml Syringe SUBCUT 120 mg Q12H VALDO Administration Gabapentin 300 mg 07/03/20 22:00 07/07/20 21:58 Gabapentin 300 Mg Capsule PO 300 mg BEDTIME@22 VALDO Administration Hydroxyzine HCl 10 mg 07/07/20 17:13 07/07/20 17:52 Hydroxyzine 10 Mg Tablet PO 10 mg Q8H PRN Administration ANXIETY Ceftriaxone Sodium 1,000 mg/ 50 mls @ 100 mls/hr 07/05/20 11:00 07/08/20 11:40 Sodium Chloride IV Infused Q24H VALDO Infusion Protocol Levothyroxine Sodium 100 mcg 07/03/20 06:00 07/08/20 06:41 Levothyroxine 100 Mcg Tablet PO 100 mcg DAILY@06 VALDO Administration Losartan Potassium 25 mg 07/03/20 09:00 07/08/20 08:38 Losartan 50 Mg Tablet PO 25 mg DAILY VALDO Administration Metolazone 10 mg 07/08/20 09:00 07/08/20 09:14 Metolazone 5 Mg Tablet PO 10 mg DAILY VALDO Administration Midodrine 5 mg 07/08/20 13:00 07/08/20 14:04 Midodrine 5 Mg Tablet PO 5 mg Q8H VALDO Administration Ondansetron HCl 4 mg 07/07/20 09:29 07/08/20 08:37 Ondansetron 2 Mg/Ml Sdv 2 Ml IVP 4 mg Q4H PRN Administration NAUSEA AND VOMITING Oxycodone/Acetaminophen 1 tab 07/03/20 05:12 07/08/20 11:43 Oxycodone-Apap 5-325 Mg Tablet PO 1 tab Q4H PRN Administration Pain Pantoprazole Sodium 40 mg 07/03/20 06:00 07/08/20 06:[address] 40 Mg Tablet PO 40 mg BID@,22 VALDO Administration Potassium Chloride 40 meq 07/06/20 09:05 07/08/20 08:48 Potassium Chloride Er 20 Meq Tablet PO 40 meq Q12H VALDO Administration Propranolol HCl 10 mg 07/03/20 18:00 07/08/20 17:12 Propranolol 20 Mg Tablet PO 10 mg BID VALDO Administration Fluticasone/Salmeterol 1 puff 07/06/20 20:00 07/08/20 07:51 Fluticasone-Salmeterol 100-50 Diskus INHALATION Not Given BID.RESPIRATORY VALDO Spironolactone 25 mg 07/03/20 06:00 07/08/20 06:41 Spironolactone 25 Mg Tablet PO 25 mg DAILY@06 VALDO Administration Zinc Gluconate 50 mg 07/06/20 11:45 07/08/20 08:37 Zinc Gluconate 50 Mg Tablet PO 50 mg DAILY VALDO Administration PFSH Acute PFSH: Medical History Abnormal angiogram Aortic valve stenosis Atypical chest pain Chronic back pain COPD (chronic obstructive pulmonary disease) Generalized anxiety disorder Hyperlipidemia Hypertension Hypothyroidism Major depressive disorder, recurrent, moderate Obesity Obstructive pyelonephritis Osteoarthritis Sleep apnea Tobacco abuse Ureteral calculus, right Surgical History H/O cardiac catheterization H/O cystoscopy H/O lateral meniscus repair of left knee S/P thyroidectomy Family History Father Hypertension Hyperlipidemia Cancer Brother Hypertension CAD (coronary artery disease) Hyperlipidemia Sister Hypertension Cancer Grandfather Hypertension Diabetes Grandmother Hypertension CAD (coronary artery disease) Cancer Diabetes Mother CAD (coronary artery disease) Hypertension Hyperlipidemia Cancer Denies family history of Anesthesia complication Social History Smoking and tobacco status: current every day smoker cigarettes Years cigarettes smoked: 34 Quit status (tobacco): considering quitting Smoking risk assessment/counseling performed?: Yes Alcohol intake: current Alcohol intake frequency: holidays/special occasions only Desire information about alcohol rehabilitation?: No Counseling given: No Marital status: Single Current gender identity: Female Vitals/I&O/Wt Last Vital Signs Temp 98.2 F 07/08/20 15:17 Pulse 69 07/08/20 15:17 Resp 18 07/08/20 15:17 BP 123/68 07/08/20 15:17 Pulse Ox 91 07/08/20 15:17 07/08/20 07/08/20 07/08/20 06:59 14:59 22:59 Intake Total 110 / 110 Output Total 1250 / 1250 Balance -1140 / -1140 Physical Exam Narrative: EXAM NARRATIVE: GENERAL: morbidly obese woman lying in bed HEENT: Pupils equal round reactive to light. No pallor or icterus. NECK: No carotid bruit. CARDIOVASCULAR SYSTEM: S1-S2 regular. Grade 3/6 cresendo murmur at RUSB RESPIRATORY SYSTEM: coarse breath sounds and diffuse rhonchi ABDOMEN: Soft, nontender and nondistended. Normal bowel sounds present. EXTREMITIES: bilateral chronic non pitting lymphedema +, pitting superimposed 1+ feel and leg edema [employer] DIRECTION SPECIALIST: Patient is alert oriented ?3. SKIN: Normal turgor and temperature. Urinary Catheter Management^: [place]: Cath Placed During This Visit: yes, but has since been removed by the nurse Reason for Continuing Indwelling Catheter: Assist healing open wound Urinary Catheter Date of Insertion: 07/08/20 Urinary Catheter Time of Insertion: 05:40 Date Urinary Catheter Removed: 07/08/20 Time Urinary Catheter Discontinued: 04:45 Data Micro: Micro: Microbiology 07/03/20 03:53 Blood Culture - Pr eliminary Blood Staphylococcus sp coag neg Staphylococcus sp coag neg#2 Staphylococcus sp coag neg#3 07/07/20 12:00 Bacterial Antigens - Final Urine,Voided 07/03/20 03:35 Blood Culture - Pr eliminary Blood Staphylococcus haemolyticus Staphylococcus epidermidis Staph capitis s ub ureolyticus Other Data: Attestation for Other Data: I personally reviewed and interpreted the following: Other data: ECHOCARDIOGRAPHY, COMPLETE ([id number]) 01/28/2019 1. This is a technically difficult study. Ultrasound enhancing agent (Optison) was used. 2. Normal left ventricular cavity size and systolic function. Left ventricular ejection fraction is estimated at 65 %. No regional wall motion abnormalities. Normal diastolic function. 3. Normal right ventricular size and systolic function. 4. Mildly increased left atrial size. 5. Severe aortic valve stenosis, peak velocity 4 m/s, peak gradient 71 mmHg, mean gradient 32 mmHg, LAI 0.83 cm squared. Dimensionless valve index 0.24. Trace to mild aortic valve regurgitation. 6. When compared to previous study dated 07/25/2018, aortic valve stenosis has worsened. 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 This is a technically very difficult study. 2. Normal left ventricular cavity size. Moderate concentric left ventricular hypertrophy. Normal left ventricular systolic function. Left ventricular ejection fraction is estimated at 65 %. Although no diagnostic regional wall motion abnormality could be identified, this possibility cannot be completely excluded based on the study. 3. Moderate aortic valve stenosis, peak velocity 3.5 m/s, peak gradient 50 mmHg, mean gradient 30 mmHg, LAI 1 cm squared ( LVOT=22 mm). Dimensionless valve index 0.29. 4. Mild to moderate aortic valve regurgitation. 5. When compared to previous study dated 04/11/2019, aortic stenosis seems to have worsened but still remains in moderate range. CTA chest 03 July 2020 IMPRESSION: 1. There is no evidence for pulmonary emboli. 2. There are stable areas of consolidation that superimposed over bilateral pleural effusions. 3. The right pleural effusion exhibits thickened enhancing wall suggesting empyema. This appears stable compared with prior CT examinations dating from 12/14/2019. 4. There are new developing patchy diffuse ground-glass opacities most prominently within the upper hemithoraces, findings suggesting a bilateral interstitial pneumonia. Echocardiogram 03 July 2020 CONCLUSIONS 1-Normal left ventricular cavity size. Normal left ventricular systolic function. Left ventricular ejection fraction is estimated at 58%. Grade I/IV diastolic dysfunction (abnormal relaxation filling pattern), normal to mildly elevated filling pressures. 2-Mildly increased left atrial size. 3-Severe aortic valve calcification. Moderate to severe aortic valve stenosis, mean gradient 28.5 mmHg, LAI 1 cm squared. Mild aortic valve regurgitation. Cannot rule out bicuspid aortic valve. Velocity across the aortic valve is 4 m/s. 4-Severely thickened mitral valve. Severe mitral annular calcification. No mitral valve stenosis. Mild mitral valve regurgitation. 5-The right ventricle is normal in size and function. Mild pulmonary hypertension, RVSP 35.5 mmHg. 6-There is no pericardial effusion. 7-Right atrial pressure is around 5 mm of mercury. 8-When compared to the prior echocardiogram dated May 19, 2020 there is slightly worsening of aortic valve stenosis with peak gradient of 64 mmHg, mean gradient 28 mmHg, however aortic valve area remains 1 cm2, but velocity across the aortic valve increased from 3.5 to 4.0 m/s which could be due to technical error in the past. Chest x-ray 07 July 2020 IMPRESSION: 1. Extensive bilateral pulmonary infiltrates demonstrating very little change. 2. Right-sided pleural thickening and/or pleural effusion unchanged in appearance. Trace left pleural effusion. EKG showed sinus rhythm with frequent PVC Lexiscan stress test (04/2019) IMPRESSIONS #1. Myocardial perfusion imaging revealing areas of his decreased tracer uptake in the anterolateral, inferolateral and anterior regions with the some reversibility in the anterolateral inferolateral region suggestive of ischemia in the distribution of circumflex artery. The elevated transient ischemic dilatation index also may suggest endocardial ischemia. #2. Normal LV ejection fraction 61%. #3. LV wall motion analysis revealing no gross wall motion abnormalities #4. Mildly dilated LV cavity with an end-systolic volume of 51 ml. Because of the inconsistency with the SPECT imaging, the reliability of the above findings somewhat compromised. Clinical correlation is recommended. No similar previous studies are available for comparison. LAMINE (04/2019) CONCLUSIONS Moderate aortic valve stenosis with a valve area 1.3 cm squared.(Peak velocity of 3.7 m/s with a peak gradient of 55 and a mean gradient of 27 mmHg.) [id number] aortic valve regurgitation. Normal left ventricular size and systolic function, EF 65% . Moderate left ventricular hypertrophy. No regional wall motion abnormalities. Mild mitral valve regurgitation. Trace tricuspid valve regurgitation. No intracardiac shunt by color-flow Doppler examination or by saline contrast injection. No similar previous studies available for comparison A&P Assessment and plan (1) Acute respiratory failure with hypoxia: Likely a mix of CHF exacerbation and PNA -currently on BiPaP and 5 L of O2 via NC alternately. Status: Acute (2) CHF exacerbation: She is on Bumex, metolazone and has received diamox as well today. -diuresing well so far. -I/O charting, daily weight. Status: Acute Qualifiers: Heart failure type: diastolic Qualified Code(s): I50.33 - Acute on chronic diastolic (congestive) heart failure (3) Aortic valve stenosis: Moderate to severe . -I do agree that further work up in form of LAMINE/ Cardiac cath to assess aortic valve area is needed sooner than later. -Once respiratory status improves, we can plan for this. Status: Acute Qualifiers: Cardiac valve disease etiology: nonrheumatic Qualified Code(s): I35.0 - Nonrheumatic aortic (valve) stenosis (4) Pneumonia: Status: Acute Qualifiers: Laterality: bilateral Lung location: upper lobe of lung Pneumonia type: due to unspecified organism Qualified Code(s): J18.9 - Pneumonia, unspecified organism (5) Hyperlipidemia: Status: Acute Qualifiers: Hyperlipidemia type: mixed hyperlipidemia Qualified Code(s): E78.2 - Mixed hyperlipidemia (6) Hypertension: Status: Acute Qualifiers: Hypertension type: essential hypertension Qualified Code(s): I10 - Essential (primary) hypertension Additional A&P Information Anemia H/O DVT/PE Morbid obesity Smoker LLUVIA non complaint to BiPaP Thank you for allowing me to participate in patient's care. Please feel free to call with questions or concerns. Consult Attestations Medical Necessity Statement: As per primary team Time Spent in Patient Care: Greater than 35 minutes (>than 50% of time spent in counselling and/or direct pt care on unit) . Coding Level of Care Code Acute Aircraft Engine Installer for Chg Fwd Diagnoses Acute respiratory failure with hypoxia J96.01 CHF exacerbation I50.33 Heart failure type: diastolic Aortic valve stenosis I35.0 Cardiac valve disease etiology: nonrheumatic Pneumonia J18.9 Laterality: bilateral Lung location: upper lobe of lung Pneumonia type: due to unspecified organism Hyperlipidemia E78.2 Hyperlipidemia type: mixed hyperlipidemia Hypertension I10 Hypertension type: essential hypertension
[2020-07-08] MEDS: enoxaparin 30 mg/0.3 mL Syringe SUBCUT (18:19)
[2020-07-08] MEDS: enoxaparin 120 mg/0.8 mL Syringe SUBCUT (18:19)
[2020-07-08 19:17] LABS: Blood Gas Operator Identificat PE
[2020-07-08] MEDS: gabapentin 300 mg Capsule PO (21:14)
[2020-07-08] MEDS: atorvastatin 40 mg Tablet 20 MG PO (21:14)
[2020-07-09] VITALS (16 sets, daily range): BP systolic 94–125; BP diastolic 50–66; PULSE 58–81; RESP 16–24; TEMP 36.3–36.7; O2SAT 92–99
[2020-07-09] MEDS: bumetanide 0.25 mg/mL SDV 4 mL 1 MG IV ×3 (01:31→22:10)
[2020-07-09 04:00] LABS: ABG PH Result 7.35 (7.35-7.45); Arterial Blood Gas Hematocrit 26.9 % (37-47); Base Excess ABG 11.5 mmol/L (-2.0-2.0); Blood Gas Allen Test Pos; Blood Gas Sample Type Arterial; HCO3 ABG 38.9 mmol/L (22-26)
[2020-07-09 04:01] LABS: ABG PCO2 70.7 mmHg (35-45); Blood Gas Operator Identificat HARKR; Blood Gas Sample Site Radial, right; Oxygen Device NC
[2020-07-09 05:24] LABS: Eosinophils % 0.1 %; Hematocrit 30.8 % (37.0-47.0); Lymphocytes # 1.3 10^3/uL (0.8-4.8); Lymphocytes % 15.4 %; Mean Corpuscular HGB Conc 29.2 g/dL (30.0-36.0); Mean Corpuscular Hemoglobin 24.3 pg (28.0-34.0); Mean Corpuscular Volume 83.2 fL (81-99); Mean Platelet Volume 11.2 fL (7.4-10.4); Neutrophils # 6.03 10^3/uL (1.8-7.7); Neutrophils % 72.3 %; Nucleated Red Blood Cells % 0 %; Platelet Count 259 10^3/cmm (130-400); Red Cell Distribution Width 18.6 % (12.1-15.1); White Blood Count 8.4 10^3/uL (4.0-10.0)
[2020-07-09] MEDS: duloxetine 60 mg Capsule PO (05:27)
[2020-07-09] MEDS: levothyroxine 100 mcg Tablet PO (05:27)
[2020-07-09] MEDS: buPROPion SR (12 HR) 150 mg Tablet PO ×2 (05:27→22:09)
[2020-07-09] MEDS: spironolactone 25 mg Tablet PO (05:27)
[2020-07-09] MEDS: midodrine 5 mg TABLET PO ×3 (05:27→21:34)
[2020-07-09] MEDS: pantoprazole DR 40 mg Tablet PO ×2 (05:27→21:40)
[2020-07-09 05:38] LABS: INR 1.08 (0.8-1.2)
[2020-07-09 05:40] LABS: Lactate (Lactic Acid level) 0.7 mmol/L (0.5-2.2)
[2020-07-09 05:50] LABS: Alanine Aminotransferase 22 U/L (0-33); Albumin Level 2.7 g/dL (3.5-5.2); Alkaline Phosphatase 302 IU/L (35-105); Anion Gap 7.2 (5-19); Aspartate Amino Transferase 37 U/L (0-32); Blood Urea Nitrogen 28 mg/dL (6-20); C Reactive Protein 46.2 mg/L (0.0-4.9); Calcium 9.3 mg/dL (8.5-10.5); Carbon Dioxide 40 mmol/L (22-29); Chloride 96 mmol/L (98-107); Globulin 3.5 g/dL (1.3-4.6); Glucose 95 mg/dL (65-115); Magnesium 2.2 mg/dL (1.7-2.3); Osmolality Calculated 293 mOsm/kg (285-295); Phosphorus 3.5 mg/dL (2.5-4.5); Potassium 4.2 mmol/L (3.5-5.1); Sodium 139 mmol/L (136-145); Total Bilirubin 0.3 mg/dL (0.15-1.2); Total Protein 6.2 g/dL (6.6-8.7)
[2020-07-09 05:55] LABS: NT Pro B Type Natriuretic Pept 2580 pg/mL (0-125); Procalcitonin 0.32 ng/mL (0-0.5)
[2020-07-09 06:06] LABS: Creatine Phosphokinase 23 U/L (26-192)
[2020-07-09] MEDS: enoxaparin 120 mg/0.8 mL Syringe SUBCUT ×2 (06:33→16:50)
[2020-07-09] MEDS: enoxaparin 30 mg/0.3 mL Syringe SUBCUT ×2 (06:33→16:50)
--- NOTE | 2020-07-09 07:00 | XR_ITS ---
WS: [id number] Exam: XR chest 1V portable [id number] Date/Time of Exam: 07/09/2020 7:00 AM Reason For Exam: sob Comparison 07/08/2020. Extensive bilateral pulmonary infiltrates show little change. Heart size is within normal limits for technique. No pneumothorax. Right-sided pleural thickening and/or pleural effusion unchanged in appea valery. Regional bony structures are intact. XR/XR chest 1V portable [id number] IMPRESSION: 1. Chest radiograph showing no significant change.
[2020-07-09] MEDS: potassium chloride ER 20 mEq Tablet 40 MEQ PO ×2 (09:17→21:35)
[2020-07-09] MEDS: ascorbic acid 500 mg Tablet 1000 MG PO ×2 (09:17→16:50)
[2020-07-09] MEDS: losartan 50 mg Tablet 25 MG PO (09:17)
[2020-07-09] MEDS: dexamethasone 4 mg Tablet 6 MG PO (09:17)
[2020-07-09] MEDS: aspirin 81 mg EC Tablet PO (09:18)
[2020-07-09] MEDS: zinc gluconate 50 mg Tablet PO (09:18)
[2020-07-09] MEDS: propranolol 20 mg Tablet 10 MG PO ×2 (09:28→16:52)
[2020-07-09] MEDS: metOLazone 5 MG Tablet 10 MG PO (09:28)
[2020-07-09] MEDS: acetaZOLAMIDE 250 mg Tablet PO (09:28)
[2020-07-09] MEDS: cefepime 1,000 MG in sodium chloride 0.9% (plus) 50 ML 100 MG IV ×2 (09:41→22:04)
--- NOTE | 2020-07-09 12:25 | P.PN_ITS ---
Subjective Subjective: Interval history: Patient was examined this morning, she tells me that she is feeling better, her breathing has improved, she only tolerated the BiPAP for a few hours during the night, alert to person, place, time, her PCO2 is 70, denies any chest pain, denies any palpitations, Medications: Reviewed: Yes Medication Review Details: Generic Name Dose Route Start Last Admin Trade Name Bean PRN Reason Stop Dose Admin Apixaban 5 mg 07/03/20 06:00 07/04/20 05:22 Apixaban 5 Mg Ta blet PO 5 mg BID@ VALDO Administration Aspirin 81 mg 07/03/20 10:15 07/04/20 07:55 Aspirin 81 Mg Ec Tablet PO 81 mg DAILY VALDO Administration Atorvastatin Calci um 20 mg 07/03/20 22:00 07/03/20 21:32 Atorvastatin 40 Mg Tablet PO 20 mg DAILY@ VALDO Administration Bupropion HCl 150 mg 07/03/20 06:00 07/04/20 05:22 Bupropion Sr (12 Hr) 150 Mg Tablet PO 150 mg BID@ VALDO Administration Dexamethasone 6 mg 07/03/20 09:00 07/04/20 07:58 Dexamethasone 4 Mg Tablet PO 6 mg DAILY VALDO Administration Duloxetine HCl 60 mg 07/03/20 06:00 07/04/20 05:22 Duloxetine 60 Mg Capsule PO 60 mg DAILY@06 VALDO Administration Furosemide 40 mg 07/03/20 13:30 07/04/20 05:22 Furosemide 40 Mg Tablet PO 40 mg Q12H VALDO Administration Gabapentin 300 mg 07/03/20 22:00 07/03/20 21:32 Gabapentin 300 M g Capsule PO 300 mg BEDTIME@ VALDO Administration Levothyroxine Sodi um 100 mcg 07/03/20 06:00 07/04/20 05:22 Levothyroxine 10 0 Mcg Tablet PO 100 mcg DAILY@06 VALDO Administration Losartan Potassium 25 mg 07/03/20 09:00 07/04/20 07:55 Losartan 50 Mg T ablet PO 25 mg DAILY VALDO Administration Oxycodone/Acetamin ophen 1 tab 07/03/20 05:12 07/03/20 22:40 Oxycodone-Apap 5 -325 Mg Tablet PO 1 tab Q4H PRN Administration Pain Pantoprazole Sodiu m 40 mg 07/03/20 06:00 07/04/20 05:[address] 40 Mg Tablet PO 40 mg BID@, VALDO Administration Propranolol HCl 10 mg 07/03/20 18:00 07/04/20 07:55 Propranolol 20 M g Tablet PO 10 mg BID VALDO Administration Spironolactone 25 mg 07/03/20 06:00 07/04/20 05:22 Spironolactone 2 5 Mg Tablet PO 25 mg DAILY@06 VALDO Administration Vitals/I&O/Wt Last Vital Signs Temp 97.6 F 07/09/20 11:35 Pulse 68 07/09/20 11:35 Resp 18 07/09/20 11:35 BP 109/62 07/09/20 11:35 Pulse Ox 92 07/09/20 11:35 07/08/20 07/09/20 07/09/20 22:59 06:59 14:59 Intake Total 240 / 350 150 / 150 Output Total 1300 / 2550 1900 / 4450 Balance -1300 / -2440 -1660 / -4100 150 / 150 Physical Exam Const: COMMON NORMALS: no acute distress and patient oriented x3 HENMT: COMMON NORMALS: normocephalic HEAD & SCALP: normocephalic Neck/C-Spine: COMMON NORMALS: no JVD Resp: COMMON NORMALS: normal respiratory effort, No retractions, No use of accessory muscles and clear to auscultation bilaterally AUSCULTATION: clear to auscultation bilaterally Cardio: COMMON NORMALS: no JVD, regular rate, regular rhythm, S1 normal heart sound present and S2 normal heart sound present RATE: regular rate RHYTHM: regular rhythm HEART SOUNDS: S1 normal heart sound present and S2 normal heart sound present GI: COMMON NORMALS: Normal to inspection, nondistended, normoactive bowel sounds present, Soft to palpation, non-tender, No hepatosplenomegaly present, no masses and no bruits PALPATION: Yes Soft to palpation and Yes No hepatosplenomegaly present Extremity: COMMON NORMALS: capillary refill normal, no clubbing, cyanosis or edema and no calf tenderness NARRATIVE EXTREMITY EXAM: 1+ pitting edema bilaterally Neuro: COMMON NORMALS: patient oriented x3 Psych: COMMON NORMALS: mental status grossly normal Urinary Catheter Management^: [place]: Cath Placed During This Visit: yes, but has since been removed by the nurse Reason for Continuing Indwelling Catheter: Acute Urinary Retention or Obstruction Urinary Catheter Date of Insertion: 07/08/20 Urinary Catheter Time of Insertion: 05:40 Date Urinary Catheter Removed: 07/08/20 Time Urinary Catheter Discontinued: 04:45 Data : 07/09/20 04:58 07/09/20 04:58 A&P Assessment and plan (1) Acute respiratory failure with hypoxia: He only use BiPAP for a few hours during the night, PCO2 is 70, patient needs to use BiPAP throughout the night Does not use oxygen at home, is now up to 5 L Rapid Covid negative negative, PCR negative, repeat Covid negative CT angiogram of the chest does not show pulmonary emboli, does show consolidation that superimposed over bilateral pleural effusions, right pleural effusion exhibits thickened enhancing wall suggesting empyema, appears stable compared to prior CT scan dated from 12/14/2019, new developing patchy diffuse groundglass opacities most prominently within the upper hemithorax is, indicated of bilateral interstitial pneumonia Cardiac echocardiogram shows an EF of 50%, grade 1 out of 4 diastolic dysfunction, moderate to severe aortic stenosis,, mild pulmonary hypertension, aortic valve area 1 cm? Blood cultures are positive for Staphylococcus species coagulase-negative, 2 species Chest x-ray this morning shows diffuse pulmonary edema and or bilateral pulmonary infiltrates improving CT chest: 1. Progressed hazy groundglass infiltrates in the perihilar regions and upper lobes. This is progressed since July 03, 2020. 2. Small bilateral pleural effusions slightly improved with subsegmental atelectasis in the lung bases. Enhancement of the right pleura is unchanged suspicious for empyema. Chest ultrasound on right Small right pleural effusion with pleural thickening and some internal debris. This appears partially free-flowing -Diuresed over 10 L since admission -Chest x-ray this morning shows improved pulmonary edema -Findings are concerning for acute flash from edema likely secondary to aortic stenosis, pneumonia -Unlikely to have an empyema for this long Plan: -continue BiPAP, monitor respiratory status very closely as she is a high risk of intubation, BiPAP during the night -Stop vancomycin, continue azithromycin and cefepime -Follow sputum, MRSA nares, urine bacterial antigens -Repeat blood cultures negative so far, first set of blood cultures all for positive for coagulase-negative staph, will have microbiology getting identification, contamination versus infection -Resume Lovenox, Eliquis on hold for possible surgical intervention - Bumex 1 mg every 12 hours hours, metolazone, with midodrine, due to a few low blood pressures strict I's and O's, fluid restrictions to 1500 cc -Continue Diamox, increase to 500 twice daily to maintain bicarb less than 25 -Continue PT OT, up out of bed -Incentive spirometer, flutter valve -Advair, albuterol -Vitamin C, zinc -Cardiology consulted for consideration of surgical invention for aortic valve once pulmonary status is improved -Full code -Lovenox for DVT prophylaxis Status: Acute (2) Atypical chest pain: Status: Acute (3) Aortic valve stenosis: Cardiology on consult Status: Acute Qualifiers: Cardiac valve disease etiology: nonrheumatic Qualified Code(s): I35.0 - Nonrheumatic aortic (valve) stenosis (4) Acute dyspnea: Status: Acute (5) Gram-positive bacteremia: Likely contamination Status: Acute Additional A&P Information Diastolic congestive heart failure exacerbation bumex, metolazone No active infarctive or ischemic changes on EKG, troponin with negative delta PE has been ruled out Anemia DVT/PE history in the past She takes Eliquis 5 mg twice a day, on hold, on therapeutic lovenox Hypothyroidism: Continue levothyroxine 100 mcg Full code Cardiac diet DVT prophylaxis therapeutic Lovenox Attestations Medical Necessity Statement*: Patient requires hospitalization, for acute respiratory failure secondary to pulmonary edema, pneumonia Coding Level of Care Code Acute [employer] [facility] Fwd Diagnoses Acute respiratory failure with hypoxia J96.01 Atypical chest pain R07.89 Aortic valve stenosis I35.0 Cardiac valve disease etiology: nonrheumatic Acute dyspnea R06.00 Gram-positive bacteremia R78.81
[2020-07-09] MEDS: azithromycin 250 mg Tablet PO (13:17)
[2020-07-09] MEDS: acetaZOLAMIDE 250 mg Tablet 500 MG PO (13:54)
[2020-07-09] MEDS: oxyCODONE-APAP 5-325 mg Tablet 1 TAB PO ×2 (13:58→20:04)
--- NOTE | 2020-07-09 18:29 | PM.PN ---
Subjective Subjective: Interval history: No new events overnight. UO -4.4L. Medications: Reviewed: Yes Medication Review Details: Current Medications Acetazolamide (Acetazolamide 250 Mg Tablet) 500 mg PO DAILY [facility] Stop: 07/10/20 09:01 Last Admin: 07/09/20 13:54 Dose: 500 mg Documented by: Albuterol Sulfate (Albuterol 2.5 Mg/0.5 Ml Neb) 2.5 mg INHALATION Q4H.RESPIRATORY PRN PRN Reason: SHORTNESS OF BREATH Last Admin: 07/06/20 15:47 Dose: 2.5 mg Documented by: Albuterol/Ipratropium (Ipratropium-Albuterol 3 Ml Neb) 3 ml INHALATION Q6H.RESPIRATORY PRN PRN Reason: SHORTNESS OF BREATH Apixaban (Apixaban 5 Mg Tablet) 5 mg PO BID@ [facility] Last Admin: 07/05/20 07:15 Dose: 5 mg Documented by: Ascorbic Acid (Ascorbic Acid 500 Mg Tablet) 1,000 mg PO BID [facility] Last Admin: 07/09/20 16:50 Dose: 1,000 mg Documented by: Aspirin (Aspirin 81 Mg Ec Tablet) 81 mg PO DAILY [facility] Last Admin: 07/09/20 09:18 Dose: 81 mg Documented by: Atorvastatin Calcium (Atorvastatin 40 Mg Tablet) 20 mg PO DAILY@ [facility] Last Admin: 07/08/20 21:14 Dose: 20 mg Documented by: Azithromycin (Azithromycin 250 Mg Tablet) 250 mg PO Q24H [facility] Last Admin: 07/09/20 13:17 Dose: 250 mg Documented by: Bumetanide (Bumetanide 0.25 Mg/Ml Sdv 4 Ml) 1 mg IV Q12H [facility] Last Admin: 07/09/20 11:10 Dose: 1 mg Documented by: Bupropion HCl (Bupropion Sr (12 Hr) 150 Mg Tablet) 150 mg PO BID@ [facility] Last Admin: 07/09/20 05:27 Dose: 150 mg Documented by: Dexamethasone (Dexamethasone 4 Mg Tablet) 6 mg PO DAILY [facility] Last Admin: 07/09/20 09:17 Dose: 6 mg Documented by: Docusate Sodium (Docusate Sodium 100 Mg Capsule) 100 mg PO DAILY PRN PRN Reason: Constipation Duloxetine HCl (Duloxetine 60 Mg Capsule) 60 mg PO DAILY@06 [facility] Last Admin: 07/09/20 05:27 Dose: 60 mg Documented by: Enoxaparin Sodium (Enoxaparin 30 Mg/0.3 Ml Syringe) 30 mg SUBCUT Q12H [facility] Last Admin: 07/09/20 16:50 Dose: 30 mg Documented by: Enoxaparin Sodium (Enoxaparin 120 Mg/0.8 Ml Syringe) 120 mg SUBCUT Q12H [facility] Last Admin: 07/09/20 16:50 Dose: 120 mg Documented by: Gabapentin (Gabapentin 300 Mg Capsule) 300 mg PO BEDTIME@ [facility] Last Admin: 07/08/20 21:14 Dose: 300 mg Documented by: Hydroxyzine HCl (Hydroxyzine 10 Mg Tablet) 10 mg PO Q8H PRN PRN Reason: ANXIETY Last Admin: 07/07/20 17:52 Dose: 10 mg Documented by: Cefepime HCl 1,000 mg/ Sodium (Chloride) 50 mls @ 100 mls/hr IV Q12H [facility]; Protocol Last Infusion: 07/09/20 10:10 Dose: Infused Documented by: Levothyroxine Sodium (Levothyroxine 100 Mcg Tablet) 100 mcg PO DAILY@ [facility] Last Admin: 07/09/20 05:27 Dose: 100 mcg Documented by: Losartan Potassium (Losartan 50 Mg Tablet) 25 mg PO DAILY [facility] Last Admin: 07/09/20 09:17 Dose: 25 mg Documented by: Metolazone (Metolazone 5 Mg Tablet) 10 mg PO DAILY [facility] Last Admin: 07/09/20 09:28 Dose: 10 mg Documented by: Midodrine (Midodrine 5 Mg Tablet) 5 mg PO Q8H [facility] Last Admin: 07/09/20 13:17 Dose: 5 mg Documented by: Ondansetron HCl (Ondansetron 2 Mg/Ml Sdv 2 Ml) 4 mg IVP Q4H PRN PRN Reason: NAUSEA AND VOMITING Last Admin: 07/08/20 08:37 Dose: 4 mg Documented by: Oxycodone/Acetaminophen (Oxycodone-Apap 5-325 Mg Tablet) 1 tab PO Q4H PRN PRN Reason: Pain Last Admin: 07/09/20 13:58 Dose: 1 tab Documented by: Pantoprazole Sodium (Pantoprazole Dr 40 Mg Tablet) 40 mg PO BID@ [facility] Last Admin: 07/09/20 05:27 Dose: 40 mg Documented by: Potassium Chloride (Potassium Chloride Er 20 Meq Tablet) 40 meq PO Q12H [facility] Last Admin: 07/09/20 09:17 Dose: 40 meq Documented by: Propranolol HCl (Propranolol 20 Mg Tablet) 10 mg PO BID [facility] Last Admin: 07/09/20 16:52 Dose: 10 mg Documented by: Fluticasone/Salmeterol (Fluticasone-Salmeterol 100-50 Diskus) 1 puff INHALATION BID.RESPIRATORY [facility] Last Admin: 07/08/20 20:20 Dose: 1 puff Documented by: Spironolactone (Spironolactone 25 Mg Tablet) 25 mg PO DAILY@06 [facility] Last Admin: 07/09/20 05:27 Dose: 25 mg Documented by: Zinc Gluconate (Zinc Gluconate 50 Mg Tablet) 50 mg PO DAILY [facility] Last Admin: 07/09/20 09:18 Dose: 50 mg Documented by: Vitals/I&O/Wt Last Vital Signs Temp 97.9 F 07/09/20 15:33 Pulse 68 07/09/20 15:33 Resp 18 07/09/20 15:33 BP 113/64 07/09/20 15:33 Pulse Ox 93 07/09/20 15:33 07/09/20 07/09/20 07/09/20 06:59 14:59 22:59 Intake Total 240 / 350 386 / 386 Output Total 1900 / 4450 2850 / 2850 Balance -1660 / -4100 386 / 386 -2850 / -2464 Physical Exam Narrative: EXAM NARRATIVE: GENERAL: morbidly obese woman lying in bed HEENT: Pupils equal round reactive to light. No pallor or icterus. NECK: No carotid bruit. CARDIOVASCULAR SYSTEM: S1-S2 regular. Grade 3/6 cresendo murmur at RUSB RESPIRATORY SYSTEM: coarse breath sounds and diffuse rhonchi ABDOMEN: Soft, nontender and nondistended. Normal bowel sounds present. EXTREMITIES: bilateral chronic non pitting lymphedema +, pitting superimposed 1+ feel and leg edema [employer] AD[employer]IONS REPRESENTATIVE: Patient is alert oriented ?3. SKIN: Normal turgor and temperature. Urinary Catheter Management^: [place]: Cath Placed During This Visit: yes, but has since been removed by the nurse Reason for Continuing Indwelling Catheter: Acute Urinary Retention or Obstruction Urinary Catheter Date of Insertion: 07/08/20 Urinary Catheter Time of Insertion: 05:40 Date Urinary Catheter Removed: 07/08/20 Time Urinary Catheter Discontinued: 04:45 Data : 07/09/20 04:58 07/09/20 04:58 A&P Assessment and plan (1) Acute respiratory failure with hypoxia: Likely a mix of CHF exacerbation and PNA -currently on BiPaP and 5 L of O2 via NC alternately. Status: Acute (2) CHF exacerbation: She is on Bumex, metolazone and has received diamox as well today. -diuresing well so far. -I/O charting, daily weight. Status: Acute Qualifiers: Heart failure type: diastolic Qualified Code(s): I50.33 - Acute on chronic diastolic (congestive) heart failure (3) Aortic valve stenosis: Moderate to severe . -I do agree that further work up in form of LAMINE and Cardiac cath to assess aortic valve area is needed sooner than later. -Once respiratory status improves, we can plan for this. Status: Acute Qualifiers: Cardiac valve disease etiology: nonrheumatic Qualified Code(s): I35.0 - Nonrheumatic aortic (valve) stenosis (4) Pneumonia: On antibiotics as per primary team Status: Acute Qualifiers: Laterality: bilateral Lung location: upper lobe of lung Pneumonia type: due to unspecified organism Qualified Code(s): J18.9 - Pneumonia, unspecified organism (5) Hyperlipidemia: Status: Acute Qualifiers: Hyperlipidemia type: mixed hyperlipidemia Qualified Code(s): E78.2 - Mixed hyperlipidemia (6) Hypertension: Status: Acute Qualifiers: Hypertension type: essential hypertension Qualified Code(s): I10 - Essential (primary) hypertension Additional A&P Information Anemia H/O DVT/PE Morbid obesity Smoker LLUVIA non complaint to BiPaP Thank you for allowing me to participate in patient's care. Please feel free to call with questions or concerns. Attestations Medical Necessity Statement*: Needs hospital stay for CHF and PNA Time Spent in Patient Care: 16 - 35 minutes (>than 50% of time spent in counselling and/or direct pt care on unit). Coding Level of Care Code Acute [employer] [facility] Diagnoses Acute respiratory failure with hypoxia J96.01 CHF exacerbation I50.33 Heart failure type: diastolic Aortic valve stenosis I35.0 Cardiac valve disease etiology: nonrheumatic Pneumonia J18.9 Laterality: bilateral Lung location: upper lobe of lung Pneumonia type: due to unspecified organism Hyperlipidemia E78.2 Hyperlipidemia type: mixed hyperlipidemia Hypertension I10 Hypertension type: essential hypertension
[2020-07-09] MEDS: atorvastatin 40 mg Tablet 20 MG PO (21:34)
[2020-07-09] MEDS: gabapentin 300 mg Capsule PO (21:40)
[2020-07-10] VITALS (16 sets, daily range): BP systolic 99–180; BP diastolic 64–82; PULSE 60–72; RESP 16–24; TEMP 36.4–36.9; O2SAT 94–99
--- NOTE | 2020-07-10 01:40 | PC.NURSE ---
pulled iv out/Confused pt confused, making odd statesments, I have to explain it, to the papers, about the dog. It was worth million not just a mutt. Pulled out the iv in her arm, it was intact in her hand when staff found it.
[2020-07-10 04:54] LABS: Eosinophils % 0.1 %; Hematocrit 30.7 % (37.0-47.0); Lymphocytes # 1.3 10^3/uL (0.8-4.8); Mean Corpuscular HGB Conc 29.3 g/dL (30.0-36.0); Mean Corpuscular Hemoglobin 24.1 pg (28.0-34.0); Mean Corpuscular Volume 82.3 fL (81-99); Mean Platelet Volume 11.2 fL (7.4-10.4); Monocytes # 1.1 10^3/uL (0.2-0.9); Neutrophils # 5.59 10^3/uL (1.8-7.7); Neutrophils % 69.5 %; Nucleated Red Blood Cells % 0 %; Platelet Count 242 10^3/cmm (130-400); Red Blood Count 3.73 10^6/uL (4.1-5.3); Red Cell Distribution Width 18.6 % (12.1-15.1); White Blood Count 8.1 10^3/uL (4.0-10.0)
[2020-07-10] MEDS: levothyroxine 100 mcg Tablet PO (05:04)
[2020-07-10] MEDS: spironolactone 25 mg Tablet PO (05:04)
[2020-07-10] MEDS: pantoprazole DR 40 mg Tablet PO ×2 (05:04→22:27)
[2020-07-10] MEDS: duloxetine 60 mg Capsule PO (05:04)
[2020-07-10] MEDS: midodrine 5 mg TABLET PO ×3 (05:04→20:21)
[2020-07-10] MEDS: buPROPion SR (12 HR) 150 mg Tablet PO ×2 (05:04→22:27)
[2020-07-10 05:11] LABS: ABG PH Result 7.36 (7.35-7.45); Arterial Blood Gas Hematocrit 29.4 % (37-47); Base Excess ABG 11.9 mmol/L (-2.0-2.0); Blood Gas Allen Test Pos; Blood Gas Sample Site Radial, right; Blood Gas Sample Type Arterial; HCO3 ABG 39.5 mmol/L (22-26); Oxygen Device NC; PO2 ABG 76.4 mmHg (80.0-100.0)
[2020-07-10 05:16] LABS: ABG PCO2 70.6 mmHg (35-45)
[2020-07-10 05:17] LABS: Alanine Aminotransferase 34 U/L (0-33); Albumin Level 2.7 g/dL (3.5-5.2); Alkaline Phosphatase 306 IU/L (35-105); Anion Gap 8.3 (5-19); Aspartate Amino Transferase 53 U/L (0-32); Blood Urea Nitrogen 31 mg/dL (6-20); C Reactive Protein 25.8 mg/L (0.0-4.9); Calcium 9.4 mg/dL (8.5-10.5); Carbon Dioxide 38 mmol/L (22-29); Chloride 95 mmol/L (98-107); Globulin 3.2 g/dL (1.3-4.6); Glomerular Filtration Rate 65.5 mL/min (90-130); Glucose 93 mg/dL (65-115); Magnesium 2.2 mg/dL (1.7-2.3); Osmolality Calculated 290 mOsm/kg (285-295); Potassium 4.3 mmol/L (3.5-5.1); Sodium 137 mmol/L (136-145); Total Bilirubin 0.3 mg/dL (0.15-1.2); Total Protein 5.9 g/dL (6.6-8.7)
[2020-07-10 05:19] LABS: Lactate (Lactic Acid level) 0.7 mmol/L (0.5-2.2)
[2020-07-10 05:25] LABS: NT Pro B Type Natriuretic Pept 2360 pg/mL (0-125); Procalcitonin 0.33 ng/mL (0-0.5)
[2020-07-10 05:37] LABS: Creatine Phosphokinase 70 U/L (26-192)
--- NOTE | 2020-07-10 05:47 | PC.NURSE ---
Picked-Nose bleed Pt picking at everything, scratching at herself, somewhat confused, Nails soaked but need to be cleaned again to prevent infection
[2020-07-10] MEDS: enoxaparin 120 mg/0.8 mL Syringe SUBCUT ×2 (06:58→17:57)
[2020-07-10] MEDS: enoxaparin 30 mg/0.3 mL Syringe SUBCUT ×2 (06:59→17:58)
--- NOTE | 2020-07-10 07:00 | XRR_ITS ---
PROCEDURE INFORMATION: Exam: XR Chest, 1 View Exam date and time: 07/10/2020 5:33 AM Age: 54 years old Clinical indication: Shortness of breath; Additional info: SOB TECHNIQUE: Imaging protocol: XR of the chest Views: 1 view. COMPARISON: CR XR chest 1V portable [id number] 07/09/2020 5:31 AM FINDINGS: Tubes, catheters and devices: There are clips in the neck from old surgery. Lungs: There are extensive bilateral pulmonary infiltrates which have not significantly changed since 07/09/2020. Pleural spaces: There is stable mild pleural thickening along the right lateral chest wall which may be due to the effusion seen on previous CT scan. No pneumothorax is seen. Heart/Mediastinum: Unremarkable. No cardiomegaly. Bones/joints: Unremarkable. XR/XR chest 1V portable [id number] IMPRESSION: No significant change in the prominent bilateral pulmonary infiltrates.
[2020-07-10] MEDS: metOLazone 5 MG Tablet 10 MG PO (08:19)
[2020-07-10] MEDS: acetaZOLAMIDE 250 mg Tablet 500 MG PO ×2 (08:19→20:21)
[2020-07-10] MEDS: propranolol 20 mg Tablet 10 MG PO ×2 (08:20→17:16)
[2020-07-10] MEDS: ascorbic acid 500 mg Tablet 1000 MG PO ×2 (08:20→17:14)
[2020-07-10] MEDS: aspirin 81 mg EC Tablet PO (08:20)
[2020-07-10] MEDS: losartan 50 mg Tablet 25 MG PO (08:20)
[2020-07-10] MEDS: potassium chloride ER 20 mEq Tablet 40 MEQ PO ×2 (08:20→20:21)
[2020-07-10] MEDS: dexamethasone 4 mg Tablet 6 MG PO (08:20)
[2020-07-10] MEDS: zinc gluconate 50 mg Tablet PO (08:20)
[2020-07-10] MEDS: cefepime 1,000 MG in sodium chloride 0.9% (plus) 50 ML 100 MG IV ×2 (08:25→20:22)
--- NOTE | 2020-07-10 08:28 | PC.NURSE ---
Patient sitting up in bed eating breakfast, alert and oriented X4, denies pain or shortness of breath, discussed plan of care, verbalized understanding.
--- NOTE | 2020-07-10 09:05 | PC.SOCIAL ---
IMM Updated Updated pt on Pg 2 IMM. No questions voiced. Provided pt a copy. Signed, dated, & timed copy in chart.
[2020-07-10] MEDS: bumetanide 0.25 mg/mL SDV 4 mL 1 MG IV ×2 (10:13→22:27)
[2020-07-10] MEDS: oxyCODONE-APAP 5-325 mg Tablet 1 TAB PO ×2 (10:16→17:14)
--- NOTE | 2020-07-10 11:38 | PM.PN ---
Subjective Medications: Reviewed: Yes Medication Review Details: Current Medications Acetazolamide (Acetazolamide 250 Mg Tablet) 500 mg PO DAILY [facility] Stop: 07/10/20 09:01 Last Admin: 07/09/20 13:54 Dose: 500 mg Documented by: Albuterol Sulfate (Albuterol 2.5 Mg/0.5 Ml Neb) 2.5 mg INHALATION Q4H.RESPIRATORY PRN PRN Reason: SHORTNESS OF BREATH Last Admin: 07/06/20 15:47 Dose: 2.5 mg Documented by: Albuterol/Ipratropium (Ipratropium-Albuterol 3 Ml Neb) 3 ml INHALATION Q6H.RESPIRATORY PRN PRN Reason: SHORTNESS OF BREATH Apixaban (Apixaban 5 Mg Tablet) 5 mg PO BID@ [facility] Last Admin: 07/05/20 07:15 Dose: 5 mg Documented by: Ascorbic Acid (Ascorbic Acid 500 Mg Tablet) 1,000 mg PO BID [facility] Last Admin: 07/09/20 16:50 Dose: 1,000 mg Documented by: Aspirin (Aspirin 81 Mg Ec Tablet) 81 mg PO DAILY [facility] Last Admin: 07/09/20 09:18 Dose: 81 mg Documented by: Atorvastatin Calcium (Atorvastatin 40 Mg Tablet) 20 mg PO DAILY@ [facility] Last Admin: 07/08/20 21:14 Dose: 20 mg Documented by: Azithromycin (Azithromycin 250 Mg Tablet) 250 mg PO Q24H [facility] Last Admin: 07/09/20 13:17 Dose: 250 mg Documented by: Bumetanide (Bumetanide 0.25 Mg/Ml Sdv 4 Ml) 1 mg IV Q12H [facility] Last Admin: 07/09/20 11:10 Dose: 1 mg Documented by: Bupropion HCl (Bupropion Sr (12 Hr) 150 Mg Tablet) 150 mg PO BID@ [facility] Last Admin: 07/09/20 05:27 Dose: 150 mg Documented by: Dexamethasone (Dexamethasone 4 Mg Tablet) 6 mg PO DAILY [facility] Last Admin: 07/09/20 09:17 Dose: 6 mg Documented by: Docusate Sodium (Docusate Sodium 100 Mg Capsule) 100 mg PO DAILY PRN PRN Reason: Constipation Duloxetine HCl (Duloxetine 60 Mg Capsule) 60 mg PO DAILY@06 [facility] Last Admin: 07/09/20 05:27 Dose: 60 mg Documented by: Enoxaparin Sodium (Enoxaparin 30 Mg/0.3 Ml Syringe) 30 mg SUBCUT Q12H [facility] Last Admin: 07/09/20 16:50 Dose: 30 mg Documented by: Enoxaparin Sodium (Enoxaparin 120 Mg/0.8 Ml Syringe) 120 mg SUBCUT Q12H [facility] Last Admin: 07/09/20 16:50 Dose: 120 mg Documented by: Gabapentin (Gabapentin 300 Mg Capsule) 300 mg PO BEDTIME@22 [facility] Last Admin: 07/08/20 21:14 Dose: 300 mg Documented by: Hydroxyzine HCl (Hydroxyzine 10 Mg Tablet) 10 mg PO Q8H PRN PRN Reason: ANXIETY Last Admin: 07/07/20 17:52 Dose: 10 mg Documented by: Cefepime HCl 1,000 mg/ Sodium (Chloride) 50 mls @ 100 mls/hr IV Q12H [facility]; Protocol Last Infusion: 07/09/20 10:10 Dose: Infused Documented by: Levothyroxine Sodium (Levothyroxine 100 Mcg Tablet) 100 mcg PO DAILY@06 [facility] Last Admin: 07/09/20 05:27 Dose: 100 mcg Documented by: Losartan Potassium (Losartan 50 Mg Tablet) 25 mg PO DAILY [facility] Last Admin: 07/09/20 09:17 Dose: 25 mg Documented by: Metolazone (Metolazone 5 Mg Tablet) 10 mg PO DAILY [facility] Last Admin: 07/09/20 09:28 Dose: 10 mg Documented by: Midodrine (Midodrine 5 Mg Tablet) 5 mg PO Q8H [facility] Last Admin: 07/09/20 13:17 Dose: 5 mg Documented by: Ondansetron HCl (Ondansetron 2 Mg/Ml Sdv 2 Ml) 4 mg IVP Q4H PRN PRN Reason: NAUSEA AND VOMITING Last Admin: 07/08/20 08:37 Dose: 4 mg Documented by: Oxycodone/Acetaminophen (Oxycodone-Apap 5-325 Mg Tablet) 1 tab PO Q4H PRN PRN Reason: Pain Last Admin: 07/09/20 13:58 Dose: 1 tab Documented by: Pantoprazole Sodium (Pantoprazole Dr 40 Mg Tablet) 40 mg PO BID@ [facility] Last Admin: 07/09/20 05:27 Dose: 40 mg Documented by: Potassium Chloride (Potassium Chloride Er 20 Meq Tablet) 40 meq PO Q12H [facility] Last Admin: 07/09/20 09:17 Dose: 40 meq Documented by: Propranolol HCl (Propranolol 20 Mg Tablet) 10 mg PO BID [facility] Last Admin: 07/09/20 16:52 Dose: 10 mg Documented by: Fluticasone/Salmeterol (Fluticasone-Salmeterol 100-50 Diskus) 1 puff INHALATION BID.RESPIRATORY [facility] Last Admin: 07/08/20 20:20 Dose: 1 puff Documented by: Spironolactone (Spironolactone 25 Mg Tablet) 25 mg PO DAILY@06 [facility] Last Admin: 07/09/20 05:27 Dose: 25 mg Documented by: Zinc Gluconate (Zinc Gluconate 50 Mg Tablet) 50 mg PO DAILY [facility] Last Admin: 07/09/20 09:18 Dose: 50 mg Documented by: Vitals/I&O/Wt Last Vital Signs Temp 97.8 F 07/10/20 08:00 Pulse 64 07/10/20 11:35 Resp 16 07/10/20 10:16 BP 101/66 07/10/20 08:00 Pulse Ox 99 07/10/20 11:35 07/09/20 07/10/20 07/10/20 22:59 06:59 14:59 Intake Total 50 / 436 540 / 976 290 / 290 Output Total 3350 / 3350 1150 / 4500 Balance -3300 / -2914 -610 / -3524 290 / 290 Physical Exam Const: COMMON NORMALS: no acute distress and patient oriented x3 HENMT: COMMON NORMALS: normocephalic HEAD & SCALP: normocephalic Neck/C-Spine: COMMON NORMALS: no JVD Resp: COMMON NORMALS: normal respiratory effort, No retractions, No use of accessory muscles and clear to auscultation bilaterally AUSCULTATION: clear to auscultation bilaterally Cardio: COMMON NORMALS: no JVD, regular rate, regular rhythm, S1 normal heart sound present and S2 normal heart sound present RATE: regular rate RHYTHM: regular rhythm HEART SOUNDS: S1 normal heart sound present and S2 normal heart sound present GI: COMMON NORMALS: Normal to inspection, nondistended, normoactive bowel sounds present, Soft to palpation, non-tender, No hepatosplenomegaly present, no masses and no bruits PALPATION: Yes Soft to palpation and Yes No hepatosplenomegaly present Extremity: COMMON NORMALS: capillary refill normal, no clubbing, cyanosis or edema, no calf tenderness and no pedal edema NARRATIVE EXTREMITY EXAM: 1+ pitting edema bilaterally Neuro: COMMON NORMALS: patient oriented x3 Psych: COMMON NORMALS: mental status grossly normal Urinary Catheter Management^: [place]: Cath Placed During This Visit: yes, but has since been removed by the nurse Reason for Continuing Indwelling Catheter: Acute Urinary Retention or Obstruction Urinary Catheter Date of Insertion: 07/08/20 Urinary Catheter Time of Insertion: 05:40 Date Urinary Catheter Removed: 07/08/20 Time Urinary Catheter Discontinued: 04:45 Data : 07/10/20 04:24 07/10/20 04:24 Micro: Microbiology 07/05/20 09:45 Blood Culture - Final Blood NO GROWTH AFTER 5 DAYS 07/05/20 09:50 Blood Culture - Final Blood NO GROWTH AFTER 5 DAYS A&P Assessment and plan (1) Acute respiratory failure with hypoxia: She had episodes of confusion overnight, refused to use a BiPAP, eventually wore the BiPAP, but only for few hours during the night, PCO2 is 70, patient needs to use BiPAP throughout the night, will place an order for Ativan to be used as needed for anxiety when she is on the BiPAP machine Does not use oxygen at home, is now down to 4 L Rapid Covid negative negative, PCR negative, repeat Covid negative CT angiogram of the chest does not show pulmonary emboli, does show consolidation that superimposed over bilateral pleural effusions, right pleural effusion exhibits thickened enhancing wall suggesting empyema, appears stable compared to prior CT scan dated from 12/14/2019, new developing patchy diffuse groundglass opacities most prominently within the upper hemithorax is, indicated of bilateral interstitial pneumonia Cardiac echocardiogram shows an EF of 50%, grade 1 out of 4 diastolic dysfunction, moderate to severe aortic stenosis,, mild pulmonary hypertension, aortic valve area 1 cm? Blood cultures are positive for Staphylococcus species coagulase-negative, 2 species Chest x-ray this morning shows diffuse pulmonary edema and or bilateral pulmonary infiltrates improving CT chest: 1. Progressed hazy groundglass infiltrates in the perihilar regions and upper lobes. This is progressed since July 03, 2020. 2. Small bilateral pleural effusions slightly improved with subsegmental atelectasis in the lung bases. Enhancement of the right pleura is unchanged suspicious for empyema. Chest ultrasound on right Small right pleural effusion with pleural thickening and some internal debris. This appears partially free-flowing -Diuresed over 13.5 L since admission -Chest x-ray this morning shows improved pulmonary edema -Findings are concerning for acute flash from edema likely secondary to aortic stenosis, pneumonia -Unlikely to have an empyema for this long Plan: -continue BiPAP, monitor respiratory status very closely as she is a high risk of intubation, BiPAP during the night - continue azithromycin and cefepime -Follow sputum, MRSA nares, urine bacterial antigens -Repeat blood cultures negative so far, first set of blood cultures all for positive for coagulase-negative staph, will have microbiology getting identification, contamination versus infection -Resume Lovenox, Eliquis on hold for possible surgical intervention - Bumex 1 mg every 12 hours hours, metolazone, with midodrine, due to a few low blood pressures strict I's and O's, fluid restrictions to 1500 cc -Continue Diamox, increase to 500 twice daily to maintain bicarb less than 25 -Continue PT OT, up out of bed -Incentive spirometer, flutter valve -Advair, albuterol -Vitamin C, zinc -Cardiology consulted for consideration of surgical invention for aortic valve once pulmonary status is improved -Full code -Lovenox for DVT prophylaxis Status: Acute (2) Atypical chest pain: Status: Acute (3) Aortic valve stenosis: Cardiology on consult Status: Acute Qualifiers: Cardiac valve disease etiology: nonrheumatic Qualified Code(s): I35.0 - Nonrheumatic aortic (valve) stenosis (4) Acute dyspnea: Status: Acute (5) Gram-positive bacteremia: Likely contamination Status: Acute Additional A&P Information Diastolic congestive heart failure exacerbation bumex, metolazone No active infarctive or ischemic changes on EKG, troponin with negative delta PE has been ruled out Anemia DVT/PE history in the past She takes Eliquis 5 mg twice a day, on hold, on therapeutic lovenox Hypothyroidism: Continue levothyroxine 100 mcg Full code Cardiac diet DVT prophylaxis therapeutic Lovenox Attestations Medical Necessity Statement*: Patient requires hospitalization for acute respiratory failure with hypoxia secondary to pulmonary edema, pneumonia, hypercarbia Coding Level of Care Code Acute [employer] for [facility] Diagnoses Acute respiratory failure with hypoxia J96.01 Atypical chest pain R07.89 Aortic valve stenosis I35.0 Cardiac valve disease etiology: nonrheumatic Acute dyspnea R06.00 Gram-positive bacteremia R78.81
[2020-07-10] MEDS: azithromycin 250 mg Tablet PO (11:49)
--- NOTE | 2020-07-10 14:31 | PC.NURSE ---
Patient found with bipap off and oxygen on, this nurse called RT Annetta who reports she did not take bipap off patient states, I took it off. This nurse informed charge nurse Gogo for possible one to one sitter.
[2020-07-10 14:47] LABS: ABG PH Result 7.38 (7.35-7.45); Alveolar-Arterial Oxygen Gradi 12.1 mmHg (5-10); Arterial Blood Gas Hematocrit 29.9 % (37-47); Base Excess ABG 11.3 mmol/L (-2.0-2.0); Blood Gas Allen Test Pos; Blood Gas Operator Identificat GD; Blood Gas Sample Site Radial, left; Blood Gas Sample Type Arterial; Carboxyhemoglobin 1.2 %THgb (0.4-20.1); HCO3 ABG 38.4 mmol/L (22-26); HGB O2 Sat 94.2 % (95-100); Ionized Calcium Level - ABG 1.3 mmol/L (1.1-1.4); Methemoglobin 0.9 % (0.4-1.5); Oxygen Device NC; Oxygen Saturation ABG 96.3; PO2 ABG 80.9 mmHg (80.0-100.0); Potassium Level - ABG 4.2 mmol/L (3.5-5.0); Total Hemoglobin 9.7 g/dL (12-16)
[2020-07-10 14:48] LABS: ABG PCO2 65.8 mmHg (35-45)
--- NOTE | 2020-07-10 15:41 | PC.NURSE ---
Patient high fowlers with bipap in place, sitter present, no distress noted.
--- NOTE | 2020-07-10 17:02 | PM.PN ---
Subjective Subjective: Interval history: Patient is doing well. She denies any chest pain. She does have shortness of breath. Vitals/I&O/Wt Last Vital Signs Temp 98.4 F 07/10/20 15:57 Pulse 61 07/10/20 15:57 Resp 17 07/10/20 15:57 BP 116/68 07/10/20 15:57 Pulse Ox 97 07/10/20 15:57 07/10/20 07/10/20 07/10/20 06:59 14:59 22:59 Intake Total 540 / 976 530 / 530 Output Total 1150 / 4500 1000 / 1000 Balance -610 / -3524 530 / 530 -1000 / -470 Physical Exam Narrative: EXAM NARRATIVE: GENERAL: morbidly obese woman lying in bed HEENT: Pupils equal round reactive to light. No pallor or icterus. NECK: No carotid bruit. CARDIOVASCULAR SYSTEM: S1-S2 regular. Grade 3/6 cresendo murmur at RUSB RESPIRATORY SYSTEM: coarse breath sounds and diffuse rhonchi ABDOMEN: Soft, nontender and nondistended. Normal bowel sounds present. 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 SKIN: Normal turgor and temperature. Urinary Catheter Management^: [place]: Cath Placed During This Visit: yes, but has since been removed by the nurse Reason for Continuing Indwelling Catheter: Acute Urinary Retention or Obstruction Urinary Catheter Date of Insertion: 07/08/20 Urinary Catheter Time of Insertion: 05:40 Date Urinary Catheter Removed: 07/08/20 Time Urinary Catheter Discontinued: 04:45 Data : 07/11/20 04:30 07/11/20 04:30 Micro: Microbiology 07/05/20 09:45 Blood Culture - Final Blood NO GROWTH AFTER 5 DAYS 07/05/20 09:50 Blood Culture - Final Blood NO GROWTH AFTER 5 DAYS A&P Assessment and plan (1) Acute respiratory failure with hypoxia: Likely a mix of CHF exacerbation and PNA -currently on BiPaP and 5 L of O2 via NC alternately. Status: Acute (2) CHF exacerbation: She is on Bumex, metolazone and has received diamox -diuresing well so far. She is in more than 14 L negative balance -I/O charting, daily weight. Status: Acute Qualifiers: Heart failure type: diastolic Qualified Code(s): I50.33 - Acute on chronic diastolic (congestive) heart failure (3) Aortic valve stenosis: Moderate to severe . -Patient will likely need LAMINE / right and left heart cath to assess severity of aortic stenosis. -Once respiratory status improves, we can plan for this. Status: Acute Qualifiers: Cardiac valve disease etiology: nonrheumatic Qualified Code(s): I35.0 - Nonrheumatic aortic (valve) stenosis (4) Pneumonia: On antibiotics as per primary team Status: Acute Qualifiers: Laterality: bilateral Lung location: upper lobe of lung Pneumonia type: due to unspecified organism Qualified Code(s): J18.9 - Pneumonia, unspecified organism (5) Hyperlipidemia: Status: Acute Qualifiers: Hyperlipidemia type: mixed hyperlipidemia Qualified Code(s): E78.2 - Mixed hyperlipidemia (6) Hypertension: Status: Acute Qualifiers: Hypertension type: essential hypertension Qualified Code(s): I10 - Essential (primary) hypertension Additional A&P Information Anemia H/O DVT/PE Morbid obesity Smoker LLUVIA non complaint to BiPaP Thank you for allowing me to participate in patient's care. Please feel free to call with questions or concerns. Attestations Medical Necessity Statement*: Care expected to cross 2 midnights. 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
--- NOTE | 2020-07-10 22:04 | PC.NURSE ---
Patient refused Bipap, stated that she can't do it anymore and didn't want to wear it any longer. Patient was able to answer questions accurately and does not appeared confused. This nurse took the Bipap off at the patient's request.
[2020-07-10] MEDS: atorvastatin 40 mg Tablet 20 MG PO (22:27)
[2020-07-10] MEDS: gabapentin 300 mg Capsule PO (22:27)
[2020-07-11] VITALS (15 sets, daily range): BP systolic 96–119; BP diastolic 52–67; PULSE 59–78; RESP 17–24; TEMP 36.4–37.2; O2SAT 91–100
--- NOTE | 2020-07-11 04:46 | PC.NURSE ---
Patient will not keep her Bipap on. The second time tonight, she had her Bipap on for about 15 minutes and the third time about 30-45 minutes.
[2020-07-11 04:50] LABS: Hematocrit 31.7 % (37.0-47.0); Hemoglobin 9.4 g/dL (11.5-15.3); Lymphocytes # 1.2 10^3/uL (0.8-4.8); Lymphocytes % 16.2 %; Mean Corpuscular HGB Conc 29.7 g/dL (30.0-36.0); Mean Corpuscular Hemoglobin 24.4 pg (28.0-34.0); Mean Corpuscular Volume 82.3 fL (81-99); Mean Platelet Volume 11.5 fL (7.4-10.4); Monocytes # 0.9 10^3/uL (0.2-0.9); Monocytes % 12.3 %; Neutrophils # 5.35 10^3/uL (1.8-7.7); Nucleated Red Blood Cells % 0 %; Platelet Count 277 10^3/cmm (130-400); Red Blood Count 3.85 10^6/uL (4.1-5.3); Red Cell Distribution Width 18.6 % (12.1-15.1); White Blood Count 7.5 10^3/uL (4.0-10.0)
[2020-07-11 05:14] LABS: Arterial Blood Gas Hematocrit 28.9 % (37-47); Base Excess ABG 12.9 mmol/L (-2.0-2.0); Blood Gas Allen Test Pos; Blood Gas Sample Site Radial, left; Blood Gas Sample Type Arterial; HCO3 ABG 39.8 mmol/L (22-26); Oxygen Device NC; PO2 ABG 70.8 mmHg (80.0-100.0)
[2020-07-11 05:15] LABS: ABG PCO2 64.6 mmHg (35-45)
[2020-07-11 05:20] LABS: Alanine Aminotransferase 46 U/L (0-33); Albumin Level 2.8 g/dL (3.5-5.2); Alkaline Phosphatase 327 IU/L (35-105); Anion Gap 7.9 (5-19); Aspartate Amino Transferase 68 U/L (0-32); Blood Urea Nitrogen 36 mg/dL (6-20); C Reactive Protein 16.1 mg/L (0.0-4.9); Calcium 9.5 mg/dL (8.5-10.5); Carbon Dioxide 38 mmol/L (22-29); Chloride 95 mmol/L (98-107); Globulin 3.3 g/dL (1.3-4.6); Glucose 89 mg/dL (65-115); Magnesium 2.1 mg/dL (1.7-2.3); Osmolality Calculated 292 mOsm/kg (285-295); Phosphorus 2.9 mg/dL (2.5-4.5); Potassium 3.9 mmol/L (3.5-5.1); Sodium 137 mmol/L (136-145); Total Bilirubin 0.4 mg/dL (0.15-1.2); Total Protein 6.1 g/dL (6.6-8.7)
[2020-07-11 05:21] LABS: Lactate (Lactic Acid level) 0.8 mmol/L (0.5-2.2)
--- NOTE | 2020-07-11 05:51 | NUR.SHIFT ---
Patient had about 2 hours on the Bipap throughout the night, patient wouldn't keep the Bipap on. Otherwise no noted periods of confusion noted. Patient slept off and on during the night.
[2020-07-11] MEDS: levothyroxine 100 mcg Tablet PO (06:10)
[2020-07-11] MEDS: buPROPion SR (12 HR) 150 mg Tablet PO ×2 (06:11→20:50)
[2020-07-11] MEDS: spironolactone 25 mg Tablet PO (06:11)
[2020-07-11] MEDS: midodrine 5 mg TABLET PO ×3 (06:11→20:09)
[2020-07-11] MEDS: duloxetine 60 mg Capsule PO (06:11)
[2020-07-11] MEDS: enoxaparin 30 mg/0.3 mL Syringe SUBCUT ×2 (06:12→18:07)
[2020-07-11] MEDS: enoxaparin 120 mg/0.8 mL Syringe SUBCUT ×2 (06:12→18:07)
[2020-07-11] MEDS: pantoprazole DR 40 mg Tablet PO ×2 (06:13→20:50)
[2020-07-11] MEDS: propranolol 20 mg Tablet 10 MG PO ×2 (08:40→18:04)
[2020-07-11] MEDS: losartan 50 mg Tablet 25 MG PO (08:41)
[2020-07-11] MEDS: zinc gluconate 50 mg Tablet PO (08:42)
[2020-07-11] MEDS: metOLazone 5 MG Tablet 10 MG PO (08:42)
[2020-07-11] MEDS: potassium chloride ER 20 mEq Tablet 40 MEQ PO ×2 (08:43→20:09)
[2020-07-11] MEDS: cefepime 1,000 MG in sodium chloride 0.9% (plus) 50 ML 100 MG IV ×2 (08:43→20:50)
[2020-07-11] MEDS: ascorbic acid 500 mg Tablet 1000 MG PO ×2 (08:43→18:05)
[2020-07-11] MEDS: aspirin 81 mg EC Tablet PO (08:43)
[2020-07-11 08:46] LABS: NT Pro B Type Natriuretic Pept 1596 pg/mL (0-125); Procalcitonin 0.37 ng/mL (0-0.5)
[2020-07-11 09:06] LABS: Creatine Phosphokinase 22 U/L (26-192)
[2020-07-11] MEDS: acetaZOLAMIDE 250 mg Tablet 500 MG PO ×2 (09:43→20:09)
[2020-07-11] MEDS: bumetanide 0.25 mg/mL SDV 4 mL 1 MG IV ×2 (10:11→23:16)
--- NOTE | 2020-07-11 11:48 | P.PN_ITS ---
Subjective Subjective: Interval history: Patient was seen this morning, she was only able to tolerate BiPAP for a few hours during the night, her PCO2 has decreased, she is feeling better, she is down to 4 L, her edema has improved, she is diuresed over 15 L, Medications: Reviewed: Yes Medication Review Details: Current Medications Acetazolamide (Acetazolamide 250 Mg Tablet) 500 mg PO DAILY [facility] Stop: 07/10/20 09:01 Last Admin: 07/09/20 13:54 Dose: 500 mg Documented by: Albuterol Sulfate (Albuterol 2.5 Mg/0.5 Ml Neb) 2.5 mg INHALATION Q4H.RESPIRATORY PRN PRN Reason: SHORTNESS OF BREATH Last Admin: 07/06/20 15:47 Dose: 2.5 mg Documented by: Albuterol/Ipratropium (Ipratropium-Albuterol 3 Ml Neb) 3 ml INHALATION Q6H.RESPIRATORY PRN PRN Reason: SHORTNESS OF BREATH Apixaban (Apixaban 5 Mg Tablet) 5 mg PO BID@ [facility] Last Admin: 07/05/20 07:15 Dose: 5 mg Documented by: Ascorbic Acid (Ascorbic Acid 500 Mg Tablet) 1,000 mg PO BID [facility] Last Admin: 07/09/20 16:50 Dose: 1,000 mg Documented by: Aspirin (Aspirin 81 Mg Ec Tablet) 81 mg PO DAILY [facility] Last Admin: 07/09/20 09:18 Dose: 81 mg Documented by: Atorvastatin Calcium (Atorvastatin 40 Mg Tablet) 20 mg PO DAILY@ [facility] Last Admin: 07/08/20 21:14 Dose: 20 mg Documented by: Azithromycin (Azithromycin 250 Mg Tablet) 250 mg PO Q24H [facility] Last Admin: 07/09/20 13:17 Dose: 250 mg Documented by: Bumetanide (Bumetanide 0.25 Mg/Ml Sdv 4 Ml) 1 mg IV Q12H [facility] Last Admin: 07/09/20 11:10 Dose: 1 mg Documented by: Bupropion HCl (Bupropion Sr (12 Hr) 150 Mg Tablet) 150 mg PO BID@ [facility] Last Admin: 07/09/20 05:27 Dose: 150 mg Documented by: Dexamethasone (Dexamethasone 4 Mg Tablet) 6 mg PO DAILY [facility] Last Admin: 07/09/20 09:17 Dose: 6 mg Documented by: Docusate Sodium (Docusate Sodium 100 Mg Capsule) 100 mg PO DAILY PRN PRN Reason: Constipation Duloxetine HCl (Duloxetine 60 Mg Capsule) 60 mg PO DAILY@06 [facility] Last Admin: 07/09/20 05:27 Dose: 60 mg Documented by: Enoxaparin Sodium (Enoxaparin 30 Mg/0.3 Ml Syringe) 30 mg SUBCUT Q12H [facility] Last Admin: 07/09/20 16:50 Dose: 30 mg Documented by: Enoxaparin Sodium (Enoxaparin 120 Mg/0.8 Ml Syringe) 120 mg SUBCUT Q12H [facility] Last Admin: 07/09/20 16:50 Dose: 120 mg Documented by: Gabapentin (Gabapentin 300 Mg Capsule) 300 mg PO BEDTIME@22 [facility] Last Admin: 07/08/20 21:14 Dose: 300 mg Documented by: Hydroxyzine HCl (Hydroxyzine 10 Mg Tablet) 10 mg PO Q8H PRN PRN Reason: ANXIETY Last Admin: 07/07/20 17:52 Dose: 10 mg Documented by: Cefepime HCl 1,000 mg/ Sodium (Chloride) 50 mls @ 100 mls/hr IV Q12H [facility]; Protocol Last Infusion: 07/09/20 10:10 Dose: Infused Documented by: Levothyroxine Sodium (Levothyroxine 100 Mcg Tablet) 100 mcg PO DAILY@06 [facility] Last Admin: 07/09/20 05:27 Dose: 100 mcg Documented by: Losartan Potassium (Losartan 50 Mg Tablet) 25 mg PO DAILY [facility] Last Admin: 07/09/20 09:17 Dose: 25 mg Documented by: Metolazone (Metolazone 5 Mg Tablet) 10 mg PO DAILY [facility] Last Admin: 07/09/20 09:28 Dose: 10 mg Documented by: Midodrine (Midodrine 5 Mg Tablet) 5 mg PO Q8H [facility] Last Admin: 07/09/20 13:17 Dose: 5 mg Documented by: Ondansetron HCl (Ondansetron 2 Mg/Ml Sdv 2 Ml) 4 mg IVP Q4H PRN PRN Reason: NAUSEA AND VOMITING Last Admin: 07/08/20 08:37 Dose: 4 mg Documented by: Oxycodone/Acetaminophen (Oxycodone-Apap 5-325 Mg Tablet) 1 tab PO Q4H PRN PRN Reason: Pain Last Admin: 07/09/20 13:58 Dose: 1 tab Documented by: Pantoprazole Sodium (Pantoprazole Dr 40 Mg Tablet) 40 mg PO BID@ [facility] Last Admin: 07/09/20 05:27 Dose: 40 mg Documented by: Potassium Chloride (Potassium Chloride Er 20 Meq Tablet) 40 meq PO Q12H [facility] Last Admin: 07/09/20 09:17 Dose: 40 meq Documented by: Propranolol HCl (Propranolol 20 Mg Tablet) 10 mg PO BID [facility] Last Admin: 07/09/20 16:52 Dose: 10 mg Documented by: Fluticasone/Salmeterol (Fluticasone-Salmeterol 100-50 Diskus) 1 puff INHALATION BID.RESPIRATORY [facility] Last Admin: 07/08/20 20:20 Dose: 1 puff Documented by: Spironolactone (Spironolactone 25 Mg Tablet) 25 mg PO DAILY@06 [facility] Last Admin: 07/09/20 05:27 Dose: 25 mg Documented by: Zinc Gluconate (Zinc Gluconate 50 Mg Tablet) 50 mg PO DAILY [facility] Last Admin: 07/09/20 09:18 Dose: 50 mg Documented by: Vitals/I&O/Wt Last Vital Signs Temp 98.6 F 07/11/20 11:27 Pulse 60 07/11/20 11:27 Resp 18 07/11/20 11:27 BP 111/54 07/11/20 11:27 Pulse Ox 100 07/11/20 11:27 07/10/20 07/11/20 07/11/20 22:59 06:59 14:59 Intake Total 336 / 866 150 / 1016 50 / 50 Output Total 1000 / 1000 1600 / 2600 Balance -664 / -134 -1450 / -1584 50 / 50 Physical Exam Const: COMMON NORMALS: no acute distress and patient oriented x3 HENMT: COMMON NORMALS: normocephalic HEAD & SCALP: normocephalic Neck/C-Spine: COMMON NORMALS: no JVD Resp: COMMON NORMALS: normal respiratory effort, No retractions, No use of accessory muscles and clear to auscultation bilaterally AUSCULTATION: clear to auscultation bilaterally Cardio: COMMON NORMALS: no JVD, regular rate, regular rhythm, S1 normal heart sound present and S2 normal heart sound present RATE: regular rate RHYTHM: regular rhythm HEART SOUNDS: S1 normal heart sound present and S2 normal heart sound present GI: COMMON NORMALS: Normal to inspection, nondistended, normoactive bowel sounds present, Soft to palpation, non-tender, No hepatosplenomegaly present, no masses and no bruits PALPATION: Yes Soft to palpation and Yes No hepatosplenomegaly present Extremity: COMMON NORMALS: capillary refill normal, no clubbing, cyanosis or edema, no calf tenderness and no pedal edema NARRATIVE EXTREMITY EXAM: 1+ pitting edema bilaterally Neuro: COMMON NORMALS: patient oriented x3 Psych: COMMON NORMALS: mental status grossly normal Skin: NARRATIVE SKIN EXAM: 1+ edema bilaterally Urinary Catheter Management^: [place]: Cath Placed During This Visit: yes, but has since been removed by the nurse Reason for Continuing Indwelling Catheter: Acute Urinary Retention or Obstruction Urinary Catheter Date of Insertion: 07/08/20 Urinary Catheter Time of Insertion: 05:40 Date Urinary Catheter Removed: 07/08/20 Time Urinary Catheter Discontinued: 04:45 Data : 07/11/20 04:30 07/11/20 04:30 Micro: Microbiology 07/05/20 09:45 Blood Culture - Final Blood NO GROWTH AFTER 5 DAYS 07/05/20 09:50 Blood Culture - Final Blood NO GROWTH AFTER 5 DAYS A&P Assessment and plan (1) Acute respiratory failure with hypoxia: Tolerated BiPAP for a few hours during the night, PCO2 has decreased to 65 Ativan to be used as needed for anxiety when she is on the BiPAP machine Does not use oxygen at home, is now down to 4 L Rapid Covid negative negative, PCR negative, repeat Covid negative CT angiogram of the chest does not show pulmonary emboli, does show consolidation that superimposed over bilateral pleural effusions, right pleural effusion exhibits thickened enhancing wall suggesting empyema, appears stable compared to prior CT scan dated from 12/14/2019, new developing patchy diffuse groundglass opacities most prominently within the upper hemithorax is, indicated of bilateral interstitial pneumonia Cardiac echocardiogram shows an EF of 50%, grade 1 out of 4 diastolic dysfunction, moderate to severe aortic stenosis,, mild pulmonary hypertension, aortic valve area 1 cm? Blood cultures are positive for Staphylococcus species coagulase-negative, 2 species Chest x-ray this morning shows diffuse pulmonary edema and or bilateral pulmonary infiltrates improving CT chest: 1. Progressed hazy groundglass infiltrates in the perihilar regions and upper lobes. This is progressed since July 03, 2020. 2. Small bilateral pleural effusions slightly improved with subsegmental atelectasis in the lung bases. Enhancement of the right pleura is unchanged suspicious for empyema. Chest ultrasound on right Small right pleural effusion with pleural thickening and some internal debris. This appears partially free-flowing -Diuresed over 13.5 L since admission -Chest x-ray this morning shows improved pulmonary edema -Findings are concerning for acute flash from edema likely secondary to aortic stenosis, pneumonia -Unlikely to have an empyema for this long Plan: -continue BiPAP, monitor respiratory status very closely as she is a high risk of intubation, BiPAP during the night - continue azithromycin and cefepime -Follow sputum, MRSA nares, urine bacterial antigens -Repeat blood cultures negative so far, first set of blood cultures all for positive for coagulase-negative staph, will have microbiology getting identification, contamination versus infection -Resume Lovenox, Eliquis on hold for possible surgical intervention - Bumex 1 mg every 12 hours hours, metolazone, with midodrine, due to a few low blood pressures strict I's and O's, fluid restrictions to 1500 cc, creatinine 1.0, diuresed over 15 L -Continue Diamox, increase to 500 twice daily to maintain bicarb less than 25 -Continue PT OT, up out of bed -Incentive spirometer, flutter valve -Advair, albuterol -Vitamin C, zinc -Cardiology consulted for consideration of surgical invention for aortic valve once pulmonary status is improved -Full code -Lovenox for DVT prophylaxis Status: Acute (2) Atypical chest pain: Status: Acute (3) Aortic valve stenosis: Cardiology on consult Status: Acute Qualifiers: Cardiac valve disease etiology: nonrheumatic Qualified Code(s): I35.0 - Nonrheumatic aortic (valve) stenosis (4) Acute dyspnea: Status: Acute (5) Gram-positive bacteremia: Likely contamination Status: Acute Additional A&P Information Diastolic congestive heart failure exacerbation bumex, metolazone No active infarctive or ischemic changes on EKG, troponin with negative delta PE has been ruled out Anemia DVT/PE history in the past She takes Eliquis 5 mg twice a day, on hold, on therapeutic lovenox Hypothyroidism: Continue levothyroxine 100 mcg Full code Cardiac diet DVT prophylaxis therapeutic Lovenox Plan for today, continue diuresis, continue fluid restrictions, PT OT, get up out of bed Attestations Medical Necessity Statement*: She requires hospitalization for acute respiratory failure with hypoxia secondary to pulmonary edema, pneumonia Coding Level of Care Code 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
[2020-07-11] MEDS: azithromycin 250 mg Tablet PO (13:09)
[2020-07-11] MEDS: oxyCODONE-APAP 5-325 mg Tablet 1 TAB PO (15:40)
--- NOTE | 2020-07-11 15:40 | PC.NURSE ---
UPON ENTERING THE ROOM THIS NURSE FOUND THE PATIENT NOT WEARING NASAL CANULA. THIS NURSE REINFORCED OXYGEN EDUCATION AND THE NEED TO KEEP THE CANULA ON. OXYGEN WAS PLACED BACK ON. O2 SATURATION WAS 99%
--- NOTE | 2020-07-11 15:53 | PC.CHAP ---
Pastoral Care Encounter/Spiritual Assessment Type of Contact [] Declined hogshead packer visit [] Patient/Family/Request visit [] Outpatient visit [] Follow-up visit [] Physician referral [] Code/Alert [XX] Routine visit [] Staff referral [] Actively dying [] Patient sleeping [] Family support [] [] Out of room [] Palliative care [] [] Receiving care in room [] Pre-surgical visit [] Trauma [] Long length of stay [] ICU visit [] Other: Relational/Emotional Strength [] Patient feels connected with others/family/visitors/staff [] Distress [] Loneliness/isolation [] Abandonment Spirituality of Patient [] Person of Kori [] Attends Restoration of their Kori [] Believes in Prayer [] Reads Bible or Pentecostalism materials [] There are Spiritual issues to be addressed Freight Handler Interventions [] Prayer [] Active listening [XX] Non-anxious presence [] Spiritual/emotional support [] Crisis/trauma care [] Spiritual counseling [] Bereavement support [] Provided bereavement packet [] Provided Bible/devotional materials [] Provided toy/stuffed animal, coloring book to patient or family member [] Provided Communion [] Anointing/[place] [] Salvation [] Completed spiritual assessment [] Other: Impact on Illness or Injury [] Angry [] Fearful [] Anxious [] Often cries [] Exhaustion [] Unable to work [] Unable to attend gnosticist [] Unable to walk/stand [] Unable to read [] Unable to drive [] Unable to eat/drink [] Unable to sleep [] Unable to be with family [] Patient intubated [] Other: Summary: Freight Handler had difficulty completing spiritual assessment. Pt either did not want hogshead packer visit (although she said that it was fine) or may have had some cognitive or communication deficits. It was extremely difficult to communicate with pt. Time spent with patient: 5 mins
--- NOTE | 2020-07-11 16:55 | P.PN_ITS ---
Subjective Subjective: Interval history: Patient is doing well. Her breathing has improved. Patient is in a 2.5 L negative fluid balance since yesterday and 16L negative balance since admission. Vitals/I&O/Wt Last Vital Signs Temp 97.5 F L 07/11/20 15:30 Pulse 64 07/11/20 15:30 Resp 18 07/11/20 15:40 BP 111/62 07/11/20 15:30 Pulse Ox 99 07/11/20 15:40 07/11/20 07/11/20 07/11/20 06:59 14:59 22:59 Intake Total 150 / 1016 50 / 50 300 / 350 Output Total 1600 / 2600 1000 / 1000 Balance -1450 / -1584 50 / 50 -700 / -650 Physical Exam Narrative: EXAM NARRATIVE: GENERAL: Patient is alert, awake and oriented x3. [] NECK: No jugular vein distension. [] HEENT: No cyanosis. No icterus. No pallor. [] HEART: Regular S1 and S2. No murmur, rub or gallop. [] LUNGS: Clear to auscultate bilaterally. [] ABDOMEN: Soft, nontender and nondistended. Positive bowel sounds. No guarding, rebound or tenderness. [] CENTRAL NERVOUS SYSTEM: Grossly nonfocal. [] EXTREMITIES: Lower extremities with 1+ edema bilaterally. Pulses palpable in the lower extremities, both dorsalis pedis and posterior tibial. [] Urinary Catheter Management^: [place]: Cath Placed During This Visit: yes, but has since been removed by the nurse Reason for Continuing Indwelling Catheter: Acute Urinary Retention or Obstruction Urinary Catheter Date of Insertion: 07/08/20 Urinary Catheter Time of Insertion: 05:40 Date Urinary Catheter Removed: 07/08/20 Time Urinary Catheter Discontinued: 04:45 Data : 07/11/20 04:30 07/11/20 04:30 A&P Assessment and plan (1) Acute respiratory failure with hypoxia: Likely a mix of CHF exacerbation and PNA O2 requirement has imoproved significantly Status: Acute (2) CHF exacerbation: She is on Bumex, metolazone and has received diamox -diuresing well so far. She is in more than 16 L negative balance. Will need to closely renal function and electrolyte closely. -I/O charting, daily weight. 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 -Patient will likely need LAMINE / right and left heart cath to assess severity of aortic stenosis. -Once respiratory status improves, we can plan for this. Status: Acute Qualifiers: Cardiac valve disease etiology: nonrheumatic Qualified Code(s): I35.0 - Nonrheumatic aortic (valve) stenosis (4) Pneumonia: On antibiotics as per primary team Status: Acute Qualifiers: Laterality: bilateral Lung location: upper lobe of lung Pneumonia type: due to unspecified organism Qualified Code(s): J18.9 - Pneumonia, unspecified organism (5) Hyperlipidemia: Status: Acute Qualifiers: Hyperlipidemia type: mixed hyperlipidemia Qualified Code(s): E78.2 - Mixed hyperlipidemia (6) Hypertension: Status: Acute Qualifiers: Hypertension type: essential hypertension Qualified Code(s): I10 - Essential (primary) hypertension Additional A&P Information Anemia H/O DVT/PE Morbid obesity Smoker LLUVIA non complaint to BiPaP Thank you for allowing me to participate in patient's care. Please feel free to call with questions or concerns. 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
[2020-07-11] MEDS: atorvastatin 40 mg Tablet 20 MG PO (20:49)
[2020-07-11] MEDS: gabapentin 300 mg Capsule PO (20:50)
[2020-07-12] VITALS (16 sets, daily range): BP systolic 109–125; BP diastolic 60–85; PULSE 55–88; RESP 15–26; TEMP 36.4–36.8; O2SAT 92–100
[2020-07-12 04:55] LABS: ABG PH Result 7.42 (7.35-7.45); Arterial Blood Gas Hematocrit 30.4 % (37-47); Base Excess ABG 13.6 mmol/L (-2.0-2.0); Blood Gas Allen Test Pos; Blood Gas Sample Site Radial, left; Blood Gas Sample Type Arterial; HCO3 ABG 40.1 mmol/L (22-26); Oxygen Device NC; PO2 ABG 75.7 mmHg (80.0-100.0)
[2020-07-12 04:56] LABS: ABG PCO2 61.6 mmHg (35-45)
[2020-07-12 05:24] LABS: Eosinophils # 0.2 10^3/uL (0.0-0.8); Eosinophils % 1.9 %; Hematocrit 31.6 % (37.0-47.0); Hemoglobin 9.3 g/dL (11.5-15.3); Lymphocytes # 2.1 10^3/uL (0.8-4.8); Lymphocytes % 22.6 %; Mean Corpuscular HGB Conc 29.4 g/dL (30.0-36.0); Mean Corpuscular Hemoglobin 24.2 pg (28.0-34.0); Mean Corpuscular Volume 82.3 fL (81-99); Mean Platelet Volume 11.4 fL (7.4-10.4); Monocytes # 1.6 10^3/uL (0.2-0.9); Monocytes % 17.5 %; Neutrophils # 5.26 10^3/uL (1.8-7.7); Neutrophils % 57.8 %; Nucleated Red Blood Cells % 0 %; Platelet Count 271 10^3/cmm (130-400); Red Blood Count 3.84 10^6/uL (4.1-5.3); Red Cell Distribution Width 18.6 % (12.1-15.1); White Blood Count 9.1 10^3/uL (4.0-10.0)
[2020-07-12] MEDS: pantoprazole DR 40 mg Tablet PO ×2 (05:33→20:56)
[2020-07-12] MEDS: buPROPion SR (12 HR) 150 mg Tablet PO ×2 (05:33→20:57)
[2020-07-12] MEDS: duloxetine 60 mg Capsule PO (05:33)
[2020-07-12] MEDS: levothyroxine 100 mcg Tablet PO (05:33)
[2020-07-12] MEDS: spironolactone 25 mg Tablet PO (05:33)
[2020-07-12] MEDS: midodrine 5 mg TABLET PO ×3 (05:33→20:56)
--- NOTE | 2020-07-12 05:38 | PC.NURSE ---
SHIFT SUMMARY Has had a good night without c/o or distress. Is not very compliant with wearing of BIPAP. Will usually only wear for a short time before pulling it off. Will wear it a little longer if she goes to sleep while it is on. Has had good urine output per [place] tonight. Cont to receive IV Bumex. Remains on 1500ml fluid restriction
[2020-07-12 05:57] LABS: NT Pro B Type Natriuretic Pept 1045 pg/mL (0-125); Procalcitonin 0.46 ng/mL (0-0.5)
[2020-07-12 06:12] LABS: Alanine Aminotransferase 46 U/L (0-33); Albumin Level 2.7 g/dL (3.5-5.2); Alkaline Phosphatase 319 IU/L (35-105); Anion Gap 11.5 (5-19); Aspartate Amino Transferase 57 U/L (0-32); Blood Urea Nitrogen 39 mg/dL (6-20); Calcium 9.6 mg/dL (8.5-10.5); Carbon Dioxide 35 mmol/L (22-29); Chloride 92 mmol/L (98-107); Globulin 3.3 g/dL (1.3-4.6); Glucose 75 mg/dL (65-115); Magnesium 2.2 mg/dL (1.7-2.3); Osmolality Calculated 288 mOsm/kg (285-295); Phosphorus 2.7 mg/dL (2.5-4.5); Potassium 3.5 mmol/L (3.5-5.1); Sodium 135 mmol/L (136-145); Total Bilirubin 0.4 mg/dL (0.15-1.2)
[2020-07-12] MEDS: enoxaparin 120 mg/0.8 mL Syringe SUBCUT (06:18)
[2020-07-12] MEDS: enoxaparin 30 mg/0.3 mL Syringe SUBCUT (06:18)
--- NOTE | 2020-07-12 07:00 | XRR_ITS ---
PROCEDURE INFORMATION: Exam: XR Chest, 1 View Exam date and time: 07/12/2020 6:22 AM Age: 54 years old Clinical indication: Shortness of breath; Additional info: SOB follow up TECHNIQUE: Imaging protocol: XR of the chest Views: 1 view. COMPARISON: CR XR chest 1V portable [id number] 07/10/2020 5:22 AM FINDINGS: Tubes, catheters and devices: Surgical mariaa overlie the lower right cervical soft tissues and thoracic inlet. Lungs: See discussion below. Pleural spaces: Mild blunting of the costophrenic angles bilaterally. Pleural thickening or effusion at the right lateral chest wall and to a lesser extent on the left are similar. Heart/Mediastinum: Stable heart size. Bones/joints: Degenerative change of the spine. Other findings: Persistent bilateral diffuse interstitial areas of thickening/opacities. XR/XR chest 1V portable [id number] IMPRESSION: Similar appearance of bilateral diffuse interstitial infiltrates.
[2020-07-12] MEDS: oxyCODONE-APAP 5-325 mg Tablet 1 TAB PO (07:59)
[2020-07-12] MEDS: metOLazone 5 MG Tablet 10 MG PO (08:01)
[2020-07-12] MEDS: losartan 50 mg Tablet 25 MG PO (08:01)
[2020-07-12] MEDS: propranolol 20 mg Tablet 10 MG PO ×2 (08:01→17:58)
[2020-07-12] MEDS: ascorbic acid 500 mg Tablet 1000 MG PO ×2 (08:02→17:58)
[2020-07-12] MEDS: aspirin 81 mg EC Tablet PO (08:02)
[2020-07-12] MEDS: zinc gluconate 50 mg Tablet PO (08:02)
[2020-07-12] MEDS: potassium chloride ER 20 mEq Tablet 40 MEQ PO ×2 (09:01→20:56)
[2020-07-12] MEDS: cefepime 1,000 MG in sodium chloride 0.9% (plus) 50 ML 100 MG IV ×2 (09:01→21:00)
[2020-07-12] MEDS: bumetanide 0.25 mg/mL SDV 4 mL 1 MG IV (09:08)
--- NOTE | 2020-07-12 10:33 | PM.PN ---
Subjective Subjective: Interval history: Patient was seen this morning, she sitting up in bed, having breakfast, she tells me that she is feeling much better, is down to 4 L, her breathing has improved, she was able to tolerate BiPAP a bit more well, no fevers, no chills, no nausea, no vomiting, no chest pain, she did work with physical therapy yesterday, she did sit in a chair for a few hours yesterday, tells me she did okay Medications: Reviewed: Yes Medication Review Details: Current Medications Acetazolamide (Acetazolamide 250 Mg Tablet) 500 mg PO DAILY [facility] Stop: 07/10/20 09:01 Last Admin: 07/09/20 13:54 Dose: 500 mg Documented by: Albuterol Sulfate (Albuterol 2.5 Mg/0.5 Ml Neb) 2.5 mg INHALATION Q4H.RESPIRATORY PRN PRN Reason: SHORTNESS OF BREATH Last Admin: 07/06/20 15:47 Dose: 2.5 mg Documented by: Albuterol/Ipratropium (Ipratropium-Albuterol 3 Ml Neb) 3 ml INHALATION Q6H.RESPIRATORY PRN PRN Reason: SHORTNESS OF BREATH Apixaban (Apixaban 5 Mg Tablet) 5 mg PO BID@ [facility] Last Admin: 07/05/20 07:15 Dose: 5 mg Documented by: Ascorbic Acid (Ascorbic Acid 500 Mg Tablet) 1,000 mg PO BID [facility] Last Admin: 07/09/20 16:50 Dose: 1,000 mg Documented by: Aspirin (Aspirin 81 Mg Ec Tablet) 81 mg PO DAILY [facility] Last Admin: 07/09/20 09:18 Dose: 81 mg Documented by: Atorvastatin Calcium (Atorvastatin 40 Mg Tablet) 20 mg PO DAILY@ [facility] Last Admin: 07/08/20 21:14 Dose: 20 mg Documented by: Azithromycin (Azithromycin 250 Mg Tablet) 250 mg PO Q24H [facility] Last Admin: 07/09/20 13:17 Dose: 250 mg Documented by: Bumetanide (Bumetanide 0.25 Mg/Ml Sdv 4 Ml) 1 mg IV Q12H [facility] Last Admin: 07/09/20 11:10 Dose: 1 mg Documented by: Bupropion HCl (Bupropion Sr (12 Hr) 150 Mg Tablet) 150 mg PO BID@ [facility] Last Admin: 07/09/20 05:27 Dose: 150 mg Documented by: Dexamethasone (Dexamethasone 4 Mg Tablet) 6 mg PO DAILY [facility] Last Admin: 07/09/20 09:17 Dose: 6 mg Documented by: Docusate Sodium (Docusate Sodium 100 Mg Capsule) 100 mg PO DAILY PRN PRN Reason: Constipation Duloxetine HCl (Duloxetine 60 Mg Capsule) 60 mg PO DAILY@06 [facility] Last Admin: 07/09/20 05:27 Dose: 60 mg Documented by: Enoxaparin Sodium (Enoxaparin 30 Mg/0.3 Ml Syringe) 30 mg SUBCUT Q12H [facility] Last Admin: 07/09/20 16:50 Dose: 30 mg Documented by: Enoxaparin Sodium (Enoxaparin 120 Mg/0.8 Ml Syringe) 120 mg SUBCUT Q12H [facility] Last Admin: 07/09/20 16:50 Dose: 120 mg Documented by: Gabapentin (Gabapentin 300 Mg Capsule) 300 mg PO BEDTIME@22 [facility] Last Admin: 07/08/20 21:14 Dose: 300 mg Documented by: Hydroxyzine HCl (Hydroxyzine 10 Mg Tablet) 10 mg PO Q8H PRN PRN Reason: ANXIETY Last Admin: 07/07/20 17:52 Dose: 10 mg Documented by: Cefepime HCl 1,000 mg/ Sodium (Chloride) 50 mls @ 100 mls/hr IV Q12H [facility]; Protocol Last Infusion: 07/09/20 10:10 Dose: Infused Documented by: Levothyroxine Sodium (Levothyroxine 100 Mcg Tablet) 100 mcg PO DAILY@06 [facility] Last Admin: 07/09/20 05:27 Dose: 100 mcg Documented by: Losartan Potassium (Losartan 50 Mg Tablet) 25 mg PO DAILY [facility] Last Admin: 07/09/20 09:17 Dose: 25 mg Documented by: Metolazone (Metolazone 5 Mg Tablet) 10 mg PO DAILY [facility] Last Admin: 07/09/20 09:28 Dose: 10 mg Documented by: Midodrine (Midodrine 5 Mg Tablet) 5 mg PO Q8H [facility] Last Admin: 07/09/20 13:17 Dose: 5 mg Documented by: Ondansetron HCl (Ondansetron 2 Mg/Ml Sdv 2 Ml) 4 mg IVP Q4H PRN PRN Reason: NAUSEA AND VOMITING Last Admin: 07/08/20 08:37 Dose: 4 mg Documented by: Oxycodone/Acetaminophen (Oxycodone-Apap 5-325 Mg Tablet) 1 tab PO Q4H PRN PRN Reason: Pain Last Admin: 07/09/20 13:58 Dose: 1 tab Documented by: Pantoprazole Sodium (Pantoprazole Dr 40 Mg Tablet) 40 mg PO BID@, [facility] Last Admin: 07/09/20 05:27 Dose: 40 mg Documented by: Potassium Chloride (Potassium Chloride Er 20 Meq Tablet) 40 meq PO Q12H [facility] Last Admin: 07/09/20 09:17 Dose: 40 meq Documented by: Propranolol HCl (Propranolol 20 Mg Tablet) 10 mg PO BID [facility] Last Admin: 07/09/20 16:52 Dose: 10 mg Documented by: Fluticasone/Salmeterol (Fluticasone-Salmeterol 100-50 Diskus) 1 puff INHALATION BID.RESPIRATORY [facility] Last Admin: 07/08/20 20:20 Dose: 1 puff Documented by: Spironolactone (Spironolactone 25 Mg Tablet) 25 mg PO DAILY@06 [facility] Last Admin: 07/09/20 05:27 Dose: 25 mg Documented by: Zinc Gluconate (Zinc Gluconate 50 Mg Tablet) 50 mg PO DAILY [facility] Last Admin: 07/09/20 09:18 Dose: 50 mg Documented by: Vitals/I&O/Wt Last Vital Signs Temp 98.3 F 07/12/20 07:21 Pulse 57 L 07/12/20 07:50 Resp 16 07/12/20 07:59 BP 115/67 07/12/20 08:01 Pulse Ox 98 07/12/20 07:50 07/11/20 07/12/20 07/12/20 22:59 06:59 14:59 Intake Total 590 / 640 120 / 760 240 / 240 Output Total 1600 / 1600 800 / 2400 Balance -1010 / -960 -680 / -1640 240 / 240 Physical Exam Const: COMMON NORMALS: no acute distress and patient oriented x3 HENMT: COMMON NORMALS: normocephalic HEAD & SCALP: normocephalic Neck/C-Spine: COMMON NORMALS: no JVD Resp: COMMON NORMALS: normal respiratory effort, No retractions, No use of accessory muscles and clear to auscultation bilaterally AUSCULTATION: clear to auscultation bilaterally Cardio: COMMON NORMALS: no JVD, regular rate, regular rhythm, S1 normal heart sound present and S2 normal heart sound present RATE: regular rate RHYTHM: regular rhythm HEART SOUNDS: S1 normal heart sound present and S2 normal heart sound present GI: COMMON NORMALS: Normal to inspection, nondistended, normoactive bowel sounds present, Soft to palpation, non-tender, No hepatosplenomegaly present, no masses and no bruits PALPATION: Yes Soft to palpation and Yes No hepatosplenomegaly present Extremity: COMMON NORMALS: capillary refill normal, no clubbing, cyanosis or edema and no calf tenderness NARRATIVE EXTREMITY EXAM: 1+ pitting edema Neuro: COMMON NORMALS: patient oriented x3 Psych: COMMON NORMALS: mental status grossly normal Skin: NARRATIVE SKIN EXAM: 1+ edema bilaterally Urinary Catheter Management^: [place]: Cath Placed During This Visit: yes, but has since been removed by the nurse Reason for Continuing Indwelling Catheter: Acute Urinary Retention or Obstruction Urinary Catheter Date of Insertion: 07/08/20 Urinary Catheter Time of Insertion: 05:40 Date Urinary Catheter Removed: 07/08/20 Time Urinary Catheter Discontinued: 04:45 Data : 07/12/20 05:11 07/12/20 05:11 A&P Assessment and plan (1) Acute respiratory failure with hypoxia: Tolerated BiPAP for a few hours during the night, PCO2 has decreased to 61 Ativan to be used as needed for anxiety when she is on the BiPAP machine Does not use oxygen at home, is now down to 4 L Rapid Covid negative negative, PCR negative, repeat Covid negative CT angiogram of the chest does not show pulmonary emboli, does show consolidation that superimposed over bilateral pleural effusions, right pleural effusion exhibits thickened enhancing wall suggesting empyema, appears stable compared to prior CT scan dated from 12/14/2019, new developing patchy diffuse groundglass opacities most prominently within the upper hemithorax is, indicated of bilateral interstitial pneumonia Cardiac echocardiogram shows an EF of 50%, grade 1 out of 4 diastolic dysfunction, moderate to severe aortic stenosis,, mild pulmonary hypertension, aortic valve area 1 cm? Blood cultures are positive for Staphylococcus species coagulase-negative, 2 species Chest x-ray this morning shows diffuse pulmonary edema and or bilateral pulmonary infiltrates improving CT chest: 1. Progressed hazy groundglass infiltrates in the perihilar regions and upper lobes. This is progressed since July 03, 2020. 2. Small bilateral pleural effusions slightly improved with subsegmental atelectasis in the lung bases. Enhancement of the right pleura is unchanged suspicious for empyema. Chest ultrasound on right Small right pleural effusion with pleural thickening and some internal debris. This appears partially free-flowing -Diuresed over 17 L since admission -Chest x-ray this morning shows improved pulmonary edema, does show diffuse interstitial infiltrates -Findings are concerning for acute flash from edema likely secondary to aortic stenosis, pneumonia -Unlikely to have an empyema for this long Plan: -continue BiPAP, monitor respiratory status very closely as she is a high risk of intubation, BiPAP during the night -continue azithromycin and cefepime for now -Follow sputum, MRSA nares, urine bacterial antigens -Repeat blood cultures negative so far, first set of blood cultures all for positive for coagulase-negative staph, will have microbiology getting identification, contamination versus infection -Continue Lovenox, Eliquis on hold for possible surgical intervention -Creatinine up to 1.2, decrease Bumex 1 mg every 24 hours, hold metolazone, continue midodrine, due to a few low blood pressures strict I's and O's, fluid restrictions to 1500 cc, diuresed over 17 L -Hold Diamox . used to maintain bicarb less than 25 -Continue PT OT, up out of bed -Incentive spirometer, flutter valve -Advair, albuterol -Vitamin C, zinc -Cardiology consulted for consideration of surgical invention for aortic valve once pulmonary status is improved -Full code -Lovenox for DVT prophylaxis Status: Acute (2) Atypical chest pain: Status: Acute (3) Aortic valve stenosis: Cardiology on consult Status: Acute Qualifiers: Cardiac valve disease etiology: nonrheumatic Qualified Code(s): I35.0 - Nonrheumatic aortic (valve) stenosis (4) Acute dyspnea: Status: Acute (5) Gram-positive bacteremia: Likely contamination Status: Acute Additional A&P Information Diastolic congestive heart failure exacerbation bumex, metolazone No active infarctive or ischemic changes on EKG, troponin with negative delta PE has been ruled out Anemia DVT/PE history in the past She takes Eliquis 5 mg twice a day, on hold, on therapeutic lovenox Hypothyroidism: Continue levothyroxine 100 mcg Full code Cardiac diet DVT prophylaxis therapeutic Lovenox Plan for today, continue diuresis, continue fluid restrictions, PT OT, get up out of bed Attestations Medical Necessity Statement*: Patient requires hospitalization for acute respiratory failure with hypoxia secondary to pulmonary edema, improved diuresis, possible consideration of aortic valve replacement Coding Level of Care Code Acute Cardiology Associate for Jose Fwd Diagnoses Acute respiratory failure with hypoxia J96.01 Atypical chest pain R07.89 Aortic valve stenosis I35.0 Cardiac valve disease etiology: nonrheumatic Acute dyspnea R06.00 Gram-positive bacteremia R78.81
--- NOTE | 2020-07-12 12:05 | PC.SOCIAL ---
*IMM Update* Gave pt IMM update. Provided copy of pg 2 of IMM @ 9:22am Initialed, dated, timed and placed in chart.
[2020-07-12] MEDS: azithromycin 250 mg Tablet PO (12:58)
--- NOTE | 2020-07-12 14:09 | PM.PN ---
Subjective Subjective: Interval history: This patient is admitted to hospital with features of heart failure and possible pneumonia. She had a multiple covert 19 test which were negative. She has significant improvement of the shortness of breath. No cough. No fever or chills. She is off the Eliquis. On Lovenox. Medications: Reviewed: Yes Medication Review Details: Current Medications Acetazolamide (Acetazolamide 250 Mg Tablet) 500 mg PO Q12H COUNT INCLUDES THE [facility] Last Admin: 07/11/20 20:09 Dose: 500 mg Documented by: Albuterol Sulfate (Albuterol 2.5 Mg/0.5 Ml Neb) 2.5 mg INHALATION Q4H.RESPIRATORY PRN PRN Reason: SHORTNESS OF BREATH Last Admin: 07/06/20 15:47 Dose: 2.5 mg Documented by: Albuterol/Ipratropium (Ipratropium-Albuterol 3 Ml Neb) 3 ml INHALATION Q6H.RESPIRATORY PRN PRN Reason: SHORTNESS OF BREATH Apixaban (Apixaban 5 Mg Tablet) 5 mg PO BID@ COUNT INCLUDES THE [facility] Last Admin: 07/05/20 07:15 Dose: 5 mg Documented by: Ascorbic Acid (Ascorbic Acid 500 Mg Tablet) 1,000 mg PO BID COUNT INCLUDES THE [facility] Last Admin: 07/12/20 08:02 Dose: 1,000 mg Documented by: Aspirin (Aspirin 81 Mg Ec Tablet) 81 mg PO DAILY COUNT INCLUDES THE [facility] Last Admin: 07/12/20 08:02 Dose: 81 mg Documented by: Atorvastatin Calcium (Atorvastatin 40 Mg Tablet) 20 mg PO DAILY@22 COUNT INCLUDES THE [facility] Last Admin: 07/11/20 20:49 Dose: 20 mg Documented by: Azithromycin (Azithromycin 250 Mg Tablet) 250 mg PO Q24H COUNT INCLUDES THE [facility] Last Admin: 07/12/20 12:58 Dose: 250 mg Documented by: Bumetanide (Bumetanide 0.25 Mg/Ml Sdv 4 Ml) 1 mg IV Q24H COUNT INCLUDES THE [facility] Last Admin: 07/12/20 09:08 Dose: 1 mg Documented by: Bupropion HCl (Bupropion Sr (12 Hr) 150 Mg Tablet) 150 mg PO BID@ COUNT INCLUDES THE [facility] Last Admin: 07/12/20 05:33 Dose: 150 mg Documented by: Docusate Sodium (Docusate Sodium 100 Mg Capsule) 100 mg PO DAILY PRN PRN Reason: Constipation Duloxetine HCl (Duloxetine 60 Mg Capsule) 60 mg PO DAILY@06 COUNT INCLUDES THE [facility] Last Admin: 07/12/20 05:33 Dose: 60 mg Documented by: Enoxaparin Sodium (Enoxaparin 30 Mg/0.3 Ml Syringe) 30 mg SUBCUT Q12H COUNT INCLUDES THE [facility] Last Admin: 07/12/20 06:18 Dose: 30 mg Documented by: Enoxaparin Sodium (Enoxaparin 120 Mg/0.8 Ml Syringe) 120 mg SUBCUT Q12H COUNT INCLUDES THE [facility] Last Admin: 07/12/20 06:18 Dose: 120 mg Documented by: Gabapentin (Gabapentin 300 Mg Capsule) 300 mg PO BEDTIME@22 COUNT INCLUDES THE [facility] Last Admin: 07/11/20 20:50 Dose: 300 mg Documented by: Hydroxyzine HCl (Hydroxyzine 10 Mg Tablet) 10 mg PO Q8H PRN PRN Reason: ANXIETY Last Admin: 07/09/20 22:15 Dose: 10 mg Documented by: Cefepime HCl 1,000 mg/ Sodium (Chloride) 50 mls @ 100 mls/hr IV Q12H COUNT INCLUDES THE [facility]; Protocol Last Admin: 07/12/20 09:01 Dose: 100 mls/hr Documented by: Levothyroxine Sodium (Levothyroxine 100 Mcg Tablet) 100 mcg PO DAILY@06 COUNT INCLUDES THE [facility] Last Admin: 07/12/20 05:33 Dose: 100 mcg Documented by: Losartan Potassium (Losartan 50 Mg Tablet) 25 mg PO DAILY COUNT INCLUDES THE [facility] Last Admin: 07/12/20 08:01 Dose: 25 mg Documented by: Metolazone (Metolazone 5 Mg Tablet) 10 mg PO DAILY COUNT INCLUDES THE [facility] Last Admin: 07/12/20 08:01 Dose: 10 mg Documented by: Midodrine (Midodrine 5 Mg Tablet) 5 mg PO Q8H COUNT INCLUDES THE [facility] Last Admin: 07/12/20 12:58 Dose: 5 mg Documented by: Ondansetron HCl (Ondansetron 2 Mg/Ml Sdv 2 Ml) 4 mg IVP Q4H PRN PRN Reason: NAUSEA AND VOMITING Last Admin: 07/08/20 08:37 Dose: 4 mg Documented by: Pantoprazole Sodium (Pantoprazole Dr 40 Mg Tablet) 40 mg PO BID@,22 COUNT INCLUDES THE [facility] Last Admin: 07/12/20 05:33 Dose: 40 mg Documented by: Potassium Chloride (Potassium Chloride Er 20 Meq Tablet) 40 meq PO Q12H COUNT INCLUDES THE [facility] Last Admin: 07/12/20 09:01 Dose: 40 meq Documented by: Propranolol HCl (Propranolol 20 Mg Tablet) 10 mg PO BID COUNT INCLUDES THE [facility] Last Admin: 07/12/20 08:01 Dose: 10 mg Documented by: Fluticasone/Salmeterol (Fluticasone-Salmeterol 100-50 Diskus) 1 puff INHALATION BID.RESPIRATORY COUNT INCLUDES THE [facility] Last Admin: 07/12/20 07:49 Dose: 1 puff Documented by: Spironolactone (Spironolactone 25 Mg Tablet) 25 mg PO DAILY@06 COUNT INCLUDES THE [facility] Last Admin: 07/12/20 05:33 Dose: 25 mg Documented by: Zinc Gluconate (Zinc Gluconate 50 Mg Tablet) 50 mg PO DAILY COUNT INCLUDES THE [facility] Last Admin: 07/12/20 08:02 Dose: 50 mg Documented by: Vitals/I&O/Wt Last Vital Signs Temp 97.7 F 07/12/20 11:10 Pulse 64 07/12/20 13:22 Resp 16 07/12/20 11:10 BP 115/85 07/12/20 11:10 Pulse Ox 96 07/12/20 13:22 07/11/20 07/12/20 07/12/20 22:59 06:59 14:59 Intake Total 590 / 640 120 / 760 240 / 240 Output Total 1600 / 1600 800 / 2400 Balance -1010 / -960 -680 / -1640 240 / 240 Physical Exam Narrative: EXAM NARRATIVE: GENERAL: The patient is alert and oriented times three. Not in any acute distress. Morbidly obese HEENT: N patient denies any fever, chills or cough. Moderate pallor, no icterus or lymphadenopathy.Oral cavity: There are no mucous membrane lesions. NECK: Trachea appears to be central. No masses noted. No JVD or thyromegaly appreciated. RESPIRATORY: Chest is symmetrical. No intercostals muscle retraction or any accessory muscle activation. There is no chest wall tenderness. Breath sounds are heard bilaterally. No rales or rhonchi heard. No evidence of any consolidation. BREASTS: Deferred. HEART: The heart sounds are normal. No S3 or S4. No significant murmurs. No pericardial rub ABDOMEN: No vessel pulsations or distention. No tenderness. No organomegaly appreciated. Bowel sounds are normally heard. : Deferred. RECTAL: Deferred. LYMPHATIC: No lymphadenopathy noted in the neck or groin. EXTREMITIES: Chronic edema both lower extremity with a significant improvement. Features of stasis dermatitis MUSCULOSKELETAL: No acute joint deformities or swelling SKIN: There are no significant rashes or ecchymosis NEUROPSYCHIATRIC: The patient is alert and oriented x3. Appears to be in a good mood. No tremors or rigidity noted. Urinary Catheter Management^: [place]: Cath Placed During This Visit: yes, but has since been removed by the nurse Reason for Continuing Indwelling Catheter: Acute Urinary Retention or Obstruction Urinary Catheter Date of Insertion: 07/08/20 Urinary Catheter Time of Insertion: 05:40 Date Urinary Catheter Removed: 07/08/20 Time Urinary Catheter Discontinued: 04:45 Data : 07/13/20 05:40 07/13/20 05:40 Other Labs: Laboratory Last Values WBC 9.1 10^3/uL (4.0-10.0) 07/12/20 05:11 RBC 3.84 10^6/uL (4.1-5.3) L 07/12/20 05:11 Hgb 9.3 g/dL (11.5-15.3) L 07/12/20 05:11 Hct 31.6 % (37.0-47.0) L 07/12/20 05:11 MCV 82.3 fL (81-99) 07/12/20 05:11 MCH 24.2 pg (28.0-34.0) L 07/12/20 05:11 MCHC 29.4 g/dL (30.0-36.0) L 07/12/20 05:11 RDW 18.6 % (12.1-15.1) H 07/12/20 05:11 Plt Count 271 10^3/cmm (130-400) 07/12/20 05:11 MPV 11.4 fL (7.4-10.4) H 07/12/20 05:11 Neut % (Auto) 57.8 % 07/12/20 05:11 Lymph % (Auto) 22.6 % 07/12/20 05:11 [place] % (Auto) 17.5 % 07/12/20 05:11 Eos % (Auto) 1.9 % 07/12/20 05:11 Baso % (Auto) 0.0 % 07/12/20 05:11 Neut # (Auto) 5.26 10^3/uL (1.8-7.7) 07/12/20 05:11 Lymph # (Auto) 2.1 10^3/uL (0.8-4.8) 07/12/20 05:11 [place] # (Auto) 1.6 10^3/uL (0.2-0.9) H 07/12/20 05:11 Eos # (Auto) 0.2 10^3/uL (0.0-0.8) 07/12/20 05:11 Baso # (Auto) 0.0 10^3/uL (0.0-0.1) 07/12/20 05:11 Nucleated RBC % (auto) 0 % 07/12/20 05:11 Nucleated RBCs # 0.0 /100WBC 07/12/20 05:11 PT 14.40 SECONDS (12.1-14.9) 07/09/20 04:58 INR 1.08 (0.8-1.2) 07/09/20 04:58 D-Dimer 3.95 ug/mIFEU (0-0.59) H 07/05/20 05:21 Specimen Type Arterial 07/12/20 04:45 Sample Site Radial, left 07/12/20 04:45 ABG pH 7.42 (7.35-7.45) 07/12/20 04:45 ABG pCO2 61.6 mmHg (35-45) H* 07/12/20 04:45 ABG pO2 75.7 mmHg (80.0-100.0) L 07/12/20 04:45 ABG HCO3 40.1 mmol/L (22-26) H 07/12/20 04:45 ABG O2 Saturation 96.3 07/10/20 14:30 ABG Base Excess 13.6 mmol/L (-2.0-2.0) H 07/12/20 04:45 Mehdi Test Pos 07/12/20 04:45 A-a O2 Gradient 12.1 mmHg (5-10) H 07/10/20 14:30 Hematocrit 30.4 % (37-47) L 07/12/20 04:45 Hgb O2 Saturation 94.2 % (95-100) L 07/10/20 14:30 Carboxyhemoglobin 1.2 %THgb (0.4-20.1) 07/10/20 14:30 Methemoglobin 0.9 % (0.4-1.5) 07/10/20 14:30 Total Hemoglobin 9.7 g/dL (12-16) L 07/10/20 14:30 Sodium 136.0 mmol/L (131-143) 07/10/20 14:30 Potassium 4.2 mmol/L (3.5-5.0) 07/10/20 14:30 Glucose 125.0 mg/dL (70-115) H 07/10/20 14:30 Ionized Calcium 1.3 mmol/L (1.1-1.4) 07/10/20 14:30 O2 Delivery Device Nc 07/12/20 04:45 O2 Liters/Min 4.0 % 07/11/20 05:05 FiO2 36.0 % 07/12/20 04:45 Specimen Drawn By Vikas 07/06/20 04:00 Log Deck Tender ID [email or web address] 07/12/20 04:45 Sodium 135 mmol/L (136-145) L 07/12/20 05:11 Potassium 3.5 mmol/L (3.5-5.1) 07/12/20 05:11 Chloride 92 mmol/L (98-107) L 07/12/20 05:11 Carbon Dioxide 35 mmol/L (22-29) H 07/12/20 05:11 Anion Gap 11.5 (5-19) 07/12/20 05:11 BUN 39 mg/dL (6-20) H 07/12/20 05:11 Creatinine 1.2 mg/dL (0.5-0.9) H 07/12/20 05:11 GFR Calculation 47.0 mL/min (90-130) L 07/12/20 05:11 Glucose 75 mg/dL (65-115) 07/12/20 05:11 Calculated Osmolality 288 mOsm/kg (285-295) 07/12/20 05:11 Lactate 0.8 mmol/L (0.5-2.2) 07/11/20 04:30 Calcium 9.6 mg/dL (8.5-10.5) 07/12/20 05:11 Phosphorus 2.7 mg/dL (2.5-4.5) 07/12/20 05:11 Magnesium 2.2 mg/dL (1.7-2.3) 07/12/20 05:11 Total Bilirubin 0.4 mg/dL (0.15-1.2) 07/12/20 05:11 AST 57 U/L (0-32) H 07/12/20 05:11 ALT 46 U/L (0-33) H 07/12/20 05:11 Alkaline Phosphatase 319 IU/L (35-105) H 07/12/20 05:11 Creatine Kinase 22 U/L (26-192) L 07/11/20 04:30 Creatine Kinase Cancelled 07/11/20 04:30 Troponin T Baseline 16 ng/L (0-10) H 07/02/20 22:43 Troponin T 120 Minute 14.30 ng/L (0-10) H 07/03/20 01:20 Delta Troponin T -1.70 ABS# (0-10) L 07/03/20 01:20 C-Reactive Protein 16.1 mg/L (0.0-4.9) H 07/11/20 04:30 NT-Pro-B Natriuret Pep 1045 pg/mL (0-125) H 07/12/20 05:11 Total Protein 6.0 g/dL (6.6-8.7) L 07/12/20 05:11 Albumin 2.7 g/dL (3.5-5.2) L 07/12/20 05:11 Globulin 3.3 g/dL (1.3-4.6) 07/12/20 05:11 Lipase 16 U/L (13-60) 07/02/20 22:43 Procalcitonin 0.46 ng/mL (0-0.5) 07/12/20 05:11 Vancomycin Trough 26.3 ug/mL (10-15) H* 07/08/20 08:10 Nasal/Oral COVID-19 PCR Not detected 07/05/20 16:10 SARS-CoV-2 Ag (Rapid) Negative (Negative) 07/03/20 00:43 [facility] Test Reference See comment 07/06/20 11:37 cardiac catheterization on 03/10/2013 Procedure Summary 1-LM is normal 2-LAD has luminal irregularities 3-LCx has luminal irregularities 4-RCA has luminal irregularities 5-Elevated left side filling pressure Please note that due to curve of the aortic arch we were only able to engage RCA despite of using different catheter left system was not engaged.We then used 5F sheath to engage the right femoral artery under US guidance with long needle as RN HEART was very deeply situated.JL4 was used then to cannulate the left system A&P Assessment and plan (1) Acute on chronic diastolic (congestive) heart failure: Patient seems to have recurrent decompensated diastolic heart failure. Most likely the aortic valve stenosis might be the etiology. Her sleep apnea and possible pneumonia are contributing factors. Status: Acute (2) Aortic valve stenosis: Clinically the patient seems to have severe aortic valve stenosis. We may consider doing a cardiac catheterization, to further evaluate the valve status as well as the coronary status. She apparently had a normal coronary arteries by cardiac catheterization in 2013. Since then she had a few myocardial perfusion imaging. The most recent one, revealed elevated transient ischemic dilatation ratio. Otherwise these tests were unremarkable. In view of the episodes of recurrent diastolic heart failure, patient may benefit from aortic valve intervention. Status: Acute Qualifiers: Cardiac valve disease etiology: nonrheumatic Qualified Code(s): I35.0 - Nonrheumatic aortic (valve) stenosis (3) Hyperlipidemia: Continue on the current medications. Status: Acute Qualifiers: Hyperlipidemia type: mixed hyperlipidemia Qualified Code(s): E78.2 - Mixed hyperlipidemia (4) Sleep apnea: Patient is on CPAP. Status: Acute Qualifiers: Sleep apnea type: unspecified type Qualified Code(s): G47.30 - Sleep apnea, unspecified (5) Hypertension: Currently normotensive. Continue on the current medications. Status: Acute Qualifiers: Hypertension type: essential hypertension Qualified Code(s): I10 - Essential (primary) hypertension (6) Atypical chest pain: Patient has chronic atypical chest pains, currently stable. Status: Acute Additional A&P Information Other problems are as outlined before. Anemia Renal insufficiency Possible pneumonia Osteoarthritis Patient may benefit from aortic valve dimension. This was discussed with the patient. She is willing to go for this. I will be contacting the business intelligence manager at the [facility] to discuss about this. Attestations Medical Necessity Statement*: Patient requires continued hospital stay for close monitoring and further management Coding Level of Care Code Acute Dietitian Chief for Jose Fwd Diagnoses Acute on chronic diastolic (congestive) heart failure I50.33 Aortic valve stenosis I35.0 Cardiac valve disease etiology: nonrheumatic Hyperlipidemia E78.2 Hyperlipidemia type: mixed hyperlipidemia Sleep apnea G47.30 Sleep apnea type: unspecified type Hypertension I10 Hypertension type: essential hypertension Atypical chest pain R07.89
[2020-07-12 15:11] LABS: Ferritin 68 ng/mL (15-150); Iron 20 ug/dL (37-145); Percent Saturation 5.7 % (20-50); Total Iron Binding Capacity 345 mcg/dl; Unsaturated Iron Binding 325 ug/dL (112-347)
[2020-07-12 15:27] LABS: Vitamin B12 704 pg/mL (232-1245)
[2020-07-12] MEDS: sucralfate 1 gm/10 mL Oral Liq UDC PO ×2 (17:58→20:56)
[2020-07-12] MEDS: ferrous sulfate EC 325 mg Tablet PO (17:59)
[2020-07-12] MEDS: atorvastatin 40 mg Tablet 20 MG PO (20:56)
[2020-07-12] MEDS: gabapentin 300 mg Capsule PO (20:56)
[2020-07-13] VITALS (16 sets, daily range): BP systolic 97–125; BP diastolic 52–72; PULSE 61–80; RESP 16–20; TEMP 36.1–36.8; O2SAT 94–99
--- NOTE | 2020-07-13 00:25 | PC.RESP ---
I have made several attempts to place pt on the BIPAP machine as ordered for her. Pt continues to refuse to wear it. Pt stated: I have told you people more than once, I am not wearing that thing again tonight. I continued to educate the pt on it's benefits, and the pt still stated that she was not going to wear the mask. Pt's vital signs are stable, and RT will draw a morning ABG as ordered.
[2020-07-13 01:26] LABS: Folate Level 7.3 ng/mL (4.8-37.3)
[2020-07-13 03:23] LABS: ABG PCO2 55.5 mmHg (35-45); ABG PH Result 7.45 (7.35-7.45); Base Excess ABG 13.1 mmol/L (-2.0-2.0); Blood Gas Sample Site Brachial, right; Blood Gas Sample Type Arterial; HCO3 ABG 38.7 mmol/L (22-26); Oxygen Device NC; PO2 ABG 73.7 mmHg (80.0-100.0)
[2020-07-13] MEDS: midodrine 5 mg TABLET PO ×3 (04:18→22:47)
[2020-07-13] MEDS: acetaminophen 325 mg Tablet 650 MG PO ×2 (04:18→14:50)
--- NOTE | 2020-07-13 05:07 | PC.NURSE ---
SHIFT SUMMARY Has had a good night. Continues to be noncompliant with wearing of BIPAP. Both RT and nurse have asked pt several times if she would put it on and she said no. Did finally wear it for about 45 minutes then said it has to come off ABG's actually looking better this am. Has been awake most all night. Had c/o headache and did receive po Tylenol with relief. 750ml urine output this shift. Remains on 1500ml fluid restriction. Had a large BM this shift with stool OB sent to lab. Was negative
[2020-07-13 05:58] LABS: Basophils % 0.1 %; Eosinophils # 0.2 10^3/uL (0.0-0.8); Eosinophils % 2.4 %; Hematocrit 29.2 % (37.0-47.0); Hemoglobin 8.9 g/dL (11.5-15.3); Lymphocytes # 2.2 10^3/uL (0.8-4.8); Lymphocytes % 24.2 %; Mean Corpuscular HGB Conc 30.5 g/dL (30.0-36.0); Mean Corpuscular Hemoglobin 23.9 pg (28.0-34.0); Mean Corpuscular Volume 78.3 fL (81-99); Mean Platelet Volume 11.1 fL (7.4-10.4); Monocytes # 1.7 10^3/uL (0.2-0.9); Monocytes % 19.1 %; Neutrophils # 4.86 10^3/uL (1.8-7.7); Neutrophils % 53.9 %; Nucleated Red Blood Cells % 0 %; Platelet Count 275 10^3/cmm (130-400); Red Blood Count 3.73 10^6/uL (4.1-5.3); Red Cell Distribution Width 18.2 % (12.1-15.1)
[2020-07-13] MEDS: pantoprazole DR 40 mg Tablet PO ×2 (06:10→22:48)
[2020-07-13] MEDS: sucralfate 1 gm/10 mL Oral Liq UDC PO ×4 (06:10→22:47)
[2020-07-13] MEDS: buPROPion SR (12 HR) 150 mg Tablet PO ×2 (06:10→22:47)
[2020-07-13] MEDS: levothyroxine 100 mcg Tablet PO (06:10)
[2020-07-13] MEDS: duloxetine 60 mg Capsule PO (06:10)
[2020-07-13] MEDS: spironolactone 25 mg Tablet PO (06:10)
[2020-07-13 06:21] LABS: Alanine Aminotransferase 49 U/L (0-33); Albumin Level 2.7 g/dL (3.5-5.2); Alkaline Phosphatase 306 IU/L (35-105); Anion Gap 6.9 (5-19); Aspartate Amino Transferase 64 U/L (0-32); Blood Urea Nitrogen 46 mg/dL (6-20); Calcium 9.4 mg/dL (8.5-10.5); Carbon Dioxide 37 mmol/L (22-29); Chloride 95 mmol/L (98-107); Globulin 2.9 g/dL (1.3-4.6); Glomerular Filtration Rate 65.5 mL/min (90-130); Glucose 87 mg/dL (65-115); Osmolality Calculated 291 mOsm/kg (285-295); Phosphorus 1.8 mg/dL (2.5-4.5); Potassium 3.9 mmol/L (3.5-5.1); Sodium 135 mmol/L (136-145); Total Bilirubin 0.4 mg/dL (0.15-1.2); Total Protein 5.6 g/dL (6.6-8.7)
[2020-07-13 06:29] LABS: NT Pro B Type Natriuretic Pept 747 pg/mL (0-125); Procalcitonin 0.64 ng/mL (0-0.5)
[2020-07-13] MEDS: aspirin 81 mg EC Tablet PO (08:04)
[2020-07-13] MEDS: zinc gluconate 50 mg Tablet PO (08:04)
[2020-07-13] MEDS: ferrous sulfate EC 325 mg Tablet PO ×2 (08:04→18:06)
[2020-07-13] MEDS: potassium chloride ER 20 mEq Tablet 40 MEQ PO ×2 (08:04→22:48)
[2020-07-13] MEDS: losartan 50 mg Tablet 25 MG PO (08:04)
[2020-07-13] MEDS: ascorbic acid 500 mg Tablet 1000 MG PO (08:05)
[2020-07-13] MEDS: propranolol 20 mg Tablet 10 MG PO ×2 (08:12→18:06)
[2020-07-13] MEDS: bumetanide 0.25 mg/mL SDV 4 mL 1 MG IV (08:12)
[2020-07-13] MEDS: cefepime 1,000 MG in sodium chloride 0.9% (plus) 50 ML 100 MG IV ×2 (08:19→22:44)
--- NOTE | 2020-07-13 08:57 | PM.PN ---
Subjective Subjective: Interval history: Patient denies any chest pain or palpitations. No fever, chills or cough. No unusual shortness of breath. She is mainly complaining of feeling tired and weak. No orthopnea. The leg swelling is improving. The hemoglobin seems to be dropping. Normal evidence of any active bleed. Medications: Reviewed: Yes Medication Review Details: Current Medications Acetaminophen (Acetaminophen 325 Mg Tablet) 650 mg PO Q6H PRN PRN Reason: MILD PAIN Last Admin: 07/13/20 04:18 Dose: 650 mg Documented by: Acetazolamide (Acetazolamide 250 Mg Tablet) 500 mg PO Q12H [facility] Last Admin: 07/11/20 20:09 Dose: 500 mg Documented by: Albuterol Sulfate (Albuterol 2.5 Mg/0.5 Ml Neb) 2.5 mg INHALATION Q4H.RESPIRATORY PRN PRN Reason: SHORTNESS OF BREATH Last Admin: 07/06/20 15:47 Dose: 2.5 mg Documented by: Albuterol/Ipratropium (Ipratropium-Albuterol 3 Ml Neb) 3 ml INHALATION Q6H.RESPIRATORY PRN PRN Reason: SHORTNESS OF BREATH Apixaban (Apixaban 5 Mg Tablet) 5 mg PO BID@ [facility] Last Admin: 07/05/20 07:15 Dose: 5 mg Documented by: Ascorbic Acid (Ascorbic Acid 500 Mg Tablet) 1,000 mg PO BID [facility] Last Admin: 07/13/20 08:05 Dose: 1,000 mg Documented by: Aspirin (Aspirin 81 Mg Ec Tablet) 81 mg PO DAILY [facility] Last Admin: 07/13/20 08:04 Dose: 81 mg Documented by: Atorvastatin Calcium (Atorvastatin 40 Mg Tablet) 20 mg PO DAILY@ [facility] Last Admin: 07/12/20 20:56 Dose: 20 mg Documented by: Azithromycin (Azithromycin 250 Mg Tablet) 250 mg PO Q24H [facility] Last Admin: 07/12/20 12:58 Dose: 250 mg Documented by: Bumetanide (Bumetanide 0.25 Mg/Ml Sdv 4 Ml) 1 mg IV Q24H [facility] Last Admin: 07/13/20 08:12 Dose: 1 mg Documented by: Bupropion HCl (Bupropion Sr (12 Hr) 150 Mg Tablet) 150 mg PO BID@ [facility] Last Admin: 07/13/20 06:10 Dose: 150 mg Documented by: Docusate Sodium (Docusate Sodium 100 Mg Capsule) 100 mg PO DAILY PRN PRN Reason: Constipation Duloxetine HCl (Duloxetine 60 Mg Capsule) 60 mg PO DAILY@06 [facility] Last Admin: 07/13/20 06:10 Dose: 60 mg Documented by: Enoxaparin Sodium (Enoxaparin 30 Mg/0.3 Ml Syringe) 30 mg SUBCUT Q12H [facility] Last Admin: 07/12/20 06:18 Dose: 30 mg Documented by: Enoxaparin Sodium (Enoxaparin 120 Mg/0.8 Ml Syringe) 120 mg SUBCUT Q12H [facility] Last Admin: 07/12/20 06:18 Dose: 120 mg Documented by: Ferrous Sulfate (Ferrous Sulfate Ec 325 Mg Tablet) 325 mg PO BIDWM [facility] Last Admin: 07/13/20 08:04 Dose: 325 mg Documented by: Gabapentin (Gabapentin 300 Mg Capsule) 300 mg PO BEDTIME@22 [facility] Last Admin: 07/12/20 20:56 Dose: 300 mg Documented by: Hydroxyzine HCl (Hydroxyzine 10 Mg Tablet) 10 mg PO Q8H PRN PRN Reason: ANXIETY Last Admin: 07/09/20 22:15 Dose: 10 mg Documented by: Cefepime HCl 1,000 mg/ Sodium (Chloride) 50 mls @ 100 mls/hr IV Q12H [facility]; Protocol Last Admin: 07/13/20 08:19 Dose: 100 mls/hr Documented by: Levothyroxine Sodium (Levothyroxine 100 Mcg Tablet) 100 mcg PO DAILY@06 [facility] Last Admin: 07/13/20 06:10 Dose: 100 mcg Documented by: Losartan Potassium (Losartan 50 Mg Tablet) 25 mg PO DAILY [facility] Last Admin: 07/13/20 08:04 Dose: 25 mg Documented by: Metolazone (Metolazone 5 Mg Tablet) 10 mg PO DAILY [facility] Last Admin: 07/12/20 08:01 Dose: 10 mg Documented by: Midodrine (Midodrine 5 Mg Tablet) 5 mg PO Q8H [facility] Last Admin: 07/13/20 04:18 Dose: 5 mg Documented by: Ondansetron HCl (Ondansetron 2 Mg/Ml Sdv 2 Ml) 4 mg IVP Q4H PRN PRN Reason: NAUSEA AND VOMITING Last Admin: 07/08/20 08:37 Dose: 4 mg Documented by: Pantoprazole Sodium (Pantoprazole Dr 40 Mg Tablet) 40 mg PO BID@ [facility] Last Admin: 07/13/20 06:10 Dose: 40 mg Documented by: Potassium Chloride (Potassium Chloride Er 20 Meq Tablet) 40 meq PO Q12H [facility] Last Admin: 07/13/20 08:04 Dose: 40 meq Documented by: Propranolol HCl (Propranolol 20 Mg Tablet) 10 mg PO BID [facility] Last Admin: 07/13/20 08:12 Dose: 10 mg Documented by: Fluticasone/Salmeterol (Fluticasone-Salmeterol 100-50 Diskus) 1 puff INHALATION BID.RESPIRATORY [facility] Last Admin: 07/12/20 19:53 Dose: 1 puff Documented by: Spironolactone (Spironolactone 25 Mg Tablet) 25 mg PO DAILY@06 [facility] Last Admin: 07/13/20 06:10 Dose: 25 mg Documented by: Sucralfate (Sucralfate 1 Gm/10 Ml Oral Liq Udc) 1 gm PO AC&BEDTIME [facility] Last Admin: 07/13/20 06:10 Dose: 1 gm Documented by: Zinc Gluconate (Zinc Gluconate 50 Mg Tablet) 50 mg PO DAILY [facility] Last Admin: 07/13/20 08:04 Dose: 50 mg Documented by: Vitals/I&O/Wt Last Vital Signs Temp 97.4 F L 07/13/20 07:01 Pulse 65 07/13/20 07:01 Resp 18 07/13/20 07:01 BP 103/57 07/13/20 08:04 Pulse Ox 96 07/13/20 07:01 07/12/20 07/13/20 07/13/20 22:59 06:59 14:59 Intake Total 50 / 340 300 / 640 Output Total 1000 / 1000 750 / 1750 Balance -950 / -660 -450 / -1110 Physical Exam Narrative: EXAM NARRATIVE: GENERAL: The patient is alert and oriented times three. Not in any acute distress. Morbidly obese HEENT: N patient denies any fever, chills or cough. Moderate pallor, no icterus or lymphadenopathy.Oral cavity: There are no mucous membrane lesions. NECK: Trachea appears to be central. No masses noted. No JVD or thyromegaly appreciated. RESPIRATORY: Chest is symmetrical. No intercostals muscle retraction or any accessory muscle activation. There is no chest wall tenderness. Breath sounds are heard bilaterally. No rales or rhonchi heard. No evidence of any consolidation. BREASTS: Deferred. HEART: The heart sounds are normal. No S3 or S4. No significant murmurs. No pericardial rub ABDOMEN: No vessel pulsations or distention. No tenderness. No organomegaly appreciated. Bowel sounds are normally heard. : Deferred. RECTAL: Deferred. LYMPHATIC: No lymphadenopathy noted in the neck or groin. EXTREMITIES: Chronic edema both lower extremity with a significant improvement. Features of stasis dermatitis MUSCULOSKELETAL: No acute joint deformities or swelling SKIN: There are no significant rashes or ecchymosis NEUROPSYCHIATRIC: The patient is alert and oriented x3. Appears to be in a good mood. No tremors or rigidity noted. Urinary Catheter Management^: [place]: Cath Placed During This Visit: yes, but has since been removed by the nurse Reason for Continuing Indwelling Catheter: Acute Urinary Retention or Obstruction Urinary Catheter Date of Insertion: 07/08/20 Urinary Catheter Time of Insertion: 05:40 Date Urinary Catheter Removed: 07/08/20 Time Urinary Catheter Discontinued: 04:45 Data : 07/13/20 05:40 07/13/20 05:40 Other Labs: Laboratory Last Values WBC 9.0 10^3/uL (4.0-10.0) 07/13/20 05:40 RBC 3.73 10^6/uL (4.1-5.3) L 07/13/20 05:40 Hgb 8.9 g/dL (11.5-15.3) L 07/13/20 05:40 Hct 29.2 % (37.0-47.0) L 07/13/20 05:40 MCV 78.3 fL (81-99) L 07/13/20 05:40 MCH 23.9 pg (28.0-34.0) L 07/13/20 05:40 MCHC 30.5 g/dL (30.0-36.0) 07/13/20 05:40 RDW 18.2 % (12.1-15.1) H 07/13/20 05:40 Plt Count 275 10^3/cmm (130-400) 07/13/20 05:40 MPV 11.1 fL (7.4-10.4) H 07/13/20 05:40 Neut % (Auto) 53.9 % 07/13/20 05:40 Lymph % (Auto) 24.2 % 07/13/20 05:40 [place] % (Auto) 19.1 % 07/13/20 05:40 Eos % (Auto) 2.4 % 07/13/20 05:40 Baso % (Auto) 0.1 % 07/13/20 05:40 Reticulocyte % (Auto) 2.2800 % 07/12/20 05:11 Neut # (Auto) 4.86 10^3/uL (1.8-7.7) 07/13/20 05:40 Lymph # (Auto) 2.2 10^3/uL (0.8-4.8) 07/13/20 05:40 [place] # (Auto) 1.7 10^3/uL (0.2-0.9) H 07/13/20 05:40 Eos # (Auto) 0.2 10^3/uL (0.0-0.8) 07/13/20 05:40 Baso # (Auto) 0.0 10^3/uL (0.0-0.1) 07/13/20 05:40 Nucleated RBC % (auto) 0 % 07/13/20 05:40 Nucleated RBCs # 0.0 /100WBC 07/13/20 05:40 PT 14.40 SECONDS (12.1-14.9) 07/09/20 04:58 INR 1.08 (0.8-1.2) 07/09/20 04:58 D-Dimer 3.95 ug/mIFEU (0-0.59) H 07/05/20 05:21 Specimen Type Arterial 07/13/20 03:10 Sample Site Brachial, right 07/13/20 03:10 ABG pH 7.45 (7.35-7.45) 07/13/20 03:10 ABG pCO2 55.5 mmHg (35-45) H 07/13/20 03:10 ABG pO2 73.7 mmHg (80.0-100.0) L 07/13/20 03:10 ABG HCO3 38.7 mmol/L (22-26) H 07/13/20 03:10 ABG O2 Saturation 96.3 07/10/20 14:30 ABG Base Excess 13.1 mmol/L (-2.0-2.0) H 07/13/20 03:10 Mehdi Test N/a 07/13/20 03:10 A-a O2 Gradient 12.1 mmHg (5-10) H 07/10/20 14:30 Hematocrit 28.0 % (37-47) L 07/13/20 03:10 Hgb O2 Saturation 94.2 % (95-100) L 07/10/20 14:30 Carboxyhemoglobin 1.2 %THgb (0.4-20.1) 07/10/20 14:30 Methemoglobin 0.9 % (0.4-1.5) 07/10/20 14:30 Total Hemoglobin 9.7 g/dL (12-16) L 07/10/20 14:30 Sodium 136.0 mmol/L (131-143) 07/10/20 14:30 Potassium 4.2 mmol/L (3.5-5.0) 07/10/20 14:30 Glucose 125.0 mg/dL (70-115) H 07/10/20 14:30 Ionized Calcium 1.3 mmol/L (1.1-1.4) 07/10/20 14:30 O2 Delivery Device Nc 07/13/20 03:10 O2 Liters/Min 2.0 % 07/13/20 03:10 FiO2 36.0 % 07/12/20 04:45 Specimen Drawn By Vikas 07/06/20 04:00 Cable Armorer Operator ID [id number] 07/13/20 03:10 Sodium 135 mmol/L (136-145) L 07/13/20 05:40 Potassium 3.9 mmol/L (3.5-5.1) 07/13/20 05:40 Chloride 95 mmol/L (98-107) L 07/13/20 05:40 Carbon Dioxide 37 mmol/L (22-29) H 07/13/20 05:40 Anion Gap 6.9 (5-19) 07/13/20 05:40 BUN 46 mg/dL (6-20) H 07/13/20 05:40 Creatinine 0.9 mg/dL (0.5-0.9) 07/13/20 05:40 GFR Calculation 65.5 mL/min (90-130) L 07/13/20 05:40 Glucose 87 mg/dL (65-115) 07/13/20 05:40 Calculated Osmolality 291 mOsm/kg (285-295) 07/13/20 05:40 Lactate 0.8 mmol/L (0.5-2.2) 07/11/20 04:30 Calcium 9.4 mg/dL (8.5-10.5) 07/13/20 05:40 Phosphorus 1.8 mg/dL (2.5-4.5) L 07/13/20 05:40 Magnesium 2.0 mg/dL (1.7-2.3) 07/13/20 05:40 Iron 20 ug/dL (37-145) L 07/12/20 05:11 TIBC 345 mcg/dl 07/12/20 05:11 % Saturation 5.7 % (20-50) L 07/12/20 05:11 Unsat Iron Binding 325 ug/dL (112-347) 07/12/20 05:11 Ferritin 68 ng/mL (15-150) 07/12/20 05:11 Total Bilirubin 0.4 mg/dL (0.15-1.2) 07/13/20 05:40 AST 64 U/L (0-32) H 07/13/20 05:40 ALT 49 U/L (0-33) H 07/13/20 05:40 Alkaline Phosphatase 306 IU/L (35-105) H 07/13/20 05:40 Creatine Kinase 22 U/L (26-192) L 07/11/20 04:30 Creatine Kinase Cancelled 07/11/20 04:30 Troponin T Baseline 16 ng/L (0-10) H 07/02/20 22:43 Troponin T 120 Minute 14.30 ng/L (0-10) H 07/03/20 01:20 Delta Troponin T -1.70 ABS# (0-10) L 07/03/20 01:20 C-Reactive Protein 16.1 mg/L (0.0-4.9) H 07/11/20 04:30 NT-Pro-B Natriuret Pep 747 pg/mL (0-125) H 07/13/20 05:40 Total Protein 5.6 g/dL (6.6-8.7) L 07/13/20 05:40 Albumin 2.7 g/dL (3.5-5.2) L 07/13/20 05:40 Globulin 2.9 g/dL (1.3-4.6) 07/13/20 05:40 Lipase 16 U/L (13-60) 07/02/20 22:43 Vitamin B12 704 pg/mL (232-1245) 07/12/20 05:11 Folate 7.3 ng/mL (4.8-37.3) 07/12/20 05:11 Procalcitonin 0.64 ng/mL (0-0.5) H 07/13/20 05:40 Vancomycin Trough 26.3 ug/mL (10-15) H* 07/08/20 08:10 Nasal/Oral COVID-19 PCR Not detected 07/05/20 16:10 SARS-CoV-2 Ag (Rapid) Negative (Negative) 07/03/20 00:43 Misc Test Reference See comment 07/06/20 11:37 Micro: Microbiology 07/12/20 22:30 Occult Blood (FIT) - Final Stool Routine Collection A&P Assessment and plan (1) Acute on chronic diastolic (congestive) heart failure: Patient seems to have recurrent decompensated diastolic heart failure. Most likely the aortic valve stenosis might be the etiology. Her sleep apnea, anemia and possible pneumonia are contributing factors. Status: Acute (2) Anemia: The etiology of the anemia is not clear at this time. Patient may have angiodysplasia or some other's causes for the bleeding . This needs to be further investigated. Status: Acute Qualifiers: Anemia type: iron deficiency Iron deficiency anemia type: unspecified iron deficiency Qualified Code(s): D50.9 - Iron deficiency anemia, unspecified (3) Aortic valve stenosis: Clinically the patient seems to have severe aortic valve stenosis. We may consider doing a cardiac catheterization, to further evaluate the valve status as well as the coronary status. She apparently had a normal coronary arteries by cardiac catheterization in 2012. Since then she had a few myocardial perfusion imaging. The most recent one, revealed elevated transient ischemic dilatation ratio. Otherwise these tests were unremarkable. In view of the episodes of recurrent diastolic heart failure, patient may benefit from aortic valve intervention. Status: Acute Qualifiers: Cardiac valve disease etiology: nonrheumatic Qualified Code(s): I35.0 - Nonrheumatic aortic (valve) stenosis (4) Hyperlipidemia: Continue on the current medications. Status: Acute Qualifiers: Hyperlipidemia type: mixed hyperlipidemia Qualified Code(s): E78.2 - Mixed hyperlipidemia (5) Sleep apnea: Patient is on CPAP. Status: Acute Qualifiers: Sleep apnea type: unspecified type Qualified Code(s): G47.30 - Sleep apnea, unspecified (6) Hypertension: Currently normotensive. Continue on the current medications. Status: Acute Qualifiers: Hypertension type: essential hypertension Qualified Code(s): I10 - Essential (primary) hypertension (7) Atypical chest pain: Patient has chronic atypical chest pains, currently stable. Status: Acute Additional A&P Information Other problems are as outlined before. Anemia, has some drop in the hemoglobin Renal insufficiency, seems to be improving Possible pneumonia Osteoarthritis Discussed with Dr. Little. We would like to do some basic work-up for the anemia before we proceed with the cardiac work-up. Dr. Little is going to look into this. Attestations Medical Necessity Statement*: Patient requires continued hospital stay for close monitoring and further management Coding Level of Care Code Acute [employer] for [employer] Fwd Diagnoses Acute on chronic diastolic (congestive) heart failure I50.33 Anemia D50.9 Anemia type: iron deficiency Iron deficiency anemia type: unspecified iron deficiency Aortic valve stenosis I35.0 Cardiac valve disease etiology: nonrheumatic Hyperlipidemia E78.2 Hyperlipidemia type: mixed hyperlipidemia Sleep apnea G47.30 Sleep apnea type: unspecified type Hypertension I10 Hypertension type: essential hypertension Atypical chest pain R07.89
--- NOTE | 2020-07-13 10:23 | PM.PN ---
Subjective Subjective: Interval history: Patient reports feeling slightly better. Denies shortness of breath or chest pain at rest. She has been having progressive dyspnea on exertion over the last 3 weeks. Reports off-and-on lightheadedness with ambulation but denies syncopal episodes. She is anemic with microcytosis. Her Eliquis is on hold. Hemoglobin continues to decline. Patient is not sure she has seen melanotic stool or hematochezia. She never had EGD or colonoscopy. Liver enzymes are up. BNP is coming down. She is on azithromycin and cefepime for suspected pneumonia. Medications: Reviewed: Yes Medication Review Details: Current Medications Acetaminophen (Acetaminophen 325 Mg Tablet) 650 mg PO Q6H PRN PRN Reason: MILD PAIN Last Admin: 07/13/20 04:18 Dose: 650 mg Documented by: Acetazolamide (Acetazolamide 250 Mg Tablet) 500 mg PO Q12H [facility] Last Admin: 07/11/20 20:09 Dose: 500 mg Documented by: Albuterol Sulfate (Albuterol 2.5 Mg/0.5 Ml Neb) 2.5 mg INHALATION Q4H.RESPIRATORY PRN PRN Reason: SHORTNESS OF BREATH Last Admin: 07/06/20 15:47 Dose: 2.5 mg Documented by: Albuterol/Ipratropium (Ipratropium-Albuterol 3 Ml Neb) 3 ml INHALATION Q6H.RESPIRATORY PRN PRN Reason: SHORTNESS OF BREATH Apixaban (Apixaban 5 Mg Tablet) 5 mg PO BID@, [facility] Last Admin: 07/05/20 07:15 Dose: 5 mg Documented by: Ascorbic Acid (Ascorbic Acid 500 Mg Tablet) 1,000 mg PO BID [facility] Last Admin: 07/13/20 08:05 Dose: 1,000 mg Documented by: Aspirin (Aspirin 81 Mg Ec Tablet) 81 mg PO DAILY [facility] Last Admin: 07/13/20 08:04 Dose: 81 mg Documented by: Atorvastatin Calcium (Atorvastatin 40 Mg Tablet) 20 mg PO DAILY@22 [facility] Last Admin: 07/12/20 20:56 Dose: 20 mg Documented by: Azithromycin (Azithromycin 250 Mg Tablet) 250 mg PO Q24H [facility] Last Admin: 07/12/20 12:58 Dose: 250 mg Documented by: Bumetanide (Bumetanide 0.25 Mg/Ml Sdv 4 Ml) 1 mg IV Q24H [facility] Last Admin: 07/13/20 08:12 Dose: 1 mg Documented by: Bupropion HCl (Bupropion Sr (12 Hr) 150 Mg Tablet) 150 mg PO BID@ [facility] Last Admin: 07/13/20 06:10 Dose: 150 mg Documented by: Docusate Sodium (Docusate Sodium 100 Mg Capsule) 100 mg PO DAILY PRN PRN Reason: Constipation Duloxetine HCl (Duloxetine 60 Mg Capsule) 60 mg PO DAILY@ [facility] Last Admin: 07/13/20 06:10 Dose: 60 mg Documented by: Enoxaparin Sodium (Enoxaparin 30 Mg/0.3 Ml Syringe) 30 mg SUBCUT Q12H [facility] Last Admin: 07/12/20 06:18 Dose: 30 mg Documented by: Enoxaparin Sodium (Enoxaparin 120 Mg/0.8 Ml Syringe) 120 mg SUBCUT Q12H [facility] Last Admin: 07/12/20 06:18 Dose: 120 mg Documented by: Ferrous Sulfate (Ferrous Sulfate Ec 325 Mg Tablet) 325 mg PO BIDWM [facility] Last Admin: 07/13/20 08:04 Dose: 325 mg Documented by: Gabapentin (Gabapentin 300 Mg Capsule) 300 mg PO BEDTIME@ [facility] Last Admin: 07/12/20 20:56 Dose: 300 mg Documented by: Hydroxyzine HCl (Hydroxyzine 10 Mg Tablet) 10 mg PO Q8H PRN PRN Reason: ANXIETY Last Admin: 07/09/20 22:15 Dose: 10 mg Documented by: Cefepime HCl 1,000 mg/ Sodium (Chloride) 50 mls @ 100 mls/hr IV Q12H [facility]; Protocol Last Admin: 07/13/20 08:19 Dose: 100 mls/hr Documented by: Levothyroxine Sodium (Levothyroxine 100 Mcg Tablet) 100 mcg PO DAILY@06 [facility] Last Admin: 07/13/20 06:10 Dose: 100 mcg Documented by: Losartan Potassium (Losartan 50 Mg Tablet) 25 mg PO DAILY [facility] Last Admin: 07/13/20 08:04 Dose: 25 mg Documented by: Metolazone (Metolazone 5 Mg Tablet) 10 mg PO DAILY [facility] Last Admin: 07/12/20 08:01 Dose: 10 mg Documented by: Midodrine (Midodrine 5 Mg Tablet) 5 mg PO Q8H [facility] Last Admin: 07/13/20 04:18 Dose: 5 mg Documented by: Ondansetron HCl (Ondansetron 2 Mg/Ml Sdv 2 Ml) 4 mg IVP Q4H PRN PRN Reason: NAUSEA AND VOMITING Last Admin: 07/08/20 08:37 Dose: 4 mg Documented by: Pantoprazole Sodium (Pantoprazole Dr 40 Mg Tablet) 40 mg PO BID@ [facility] Last Admin: 07/13/20 06:10 Dose: 40 mg Documented by: Potassium Chloride (Potassium Chloride Er 20 Meq Tablet) 40 meq PO Q12H [facility] Last Admin: 07/13/20 08:04 Dose: 40 meq Documented by: Propranolol HCl (Propranolol 20 Mg Tablet) 10 mg PO BID [facility] Last Admin: 07/13/20 08:12 Dose: 10 mg Documented by: Fluticasone/Salmeterol (Fluticasone-Salmeterol 100-50 Diskus) 1 puff INHALATION BID.RESPIRATORY [facility] Last Admin: 07/12/20 19:53 Dose: 1 puff Documented by: Spironolactone (Spironolactone 25 Mg Tablet) 25 mg PO DAILY@06 [facility] Last Admin: 07/13/20 06:10 Dose: 25 mg Documented by: Sucralfate (Sucralfate 1 Gm/10 Ml Oral Liq Udc) 1 gm PO AC&BEDTIME [facility] Last Admin: 07/13/20 06:10 Dose: 1 gm Documented by: Zinc Gluconate (Zinc Gluconate 50 Mg Tablet) 50 mg PO DAILY [facility] Last Admin: 07/13/20 08:04 Dose: 50 mg Documented by: Vitals/I&O/Wt Last Vital Signs Temp 97.4 F L 07/13/20 07:01 Pulse 65 07/13/20 09:18 Resp 16 07/13/20 09:18 BP 103/57 07/13/20 08:04 Pulse Ox 98 07/13/20 09:18 07/12/20 07/13/20 07/13/20 22:59 06:59 14:59 Intake Total 50 / 340 300 / 640 170 / 170 Output Total 1000 / 1000 750 / 1750 Balance -950 / -660 -450 / -1110 170 / 170 Physical Exam Const: COMMON NORMALS: no acute distress and patient oriented x3 Resp: COMMON NORMALS: normal respiratory effort and clear to auscultation bilaterally AUSCULTATION: clear to auscultation bilaterally Cardio: COMMON NORMALS: regular rate and regular rhythm RATE: regular rate RHYTHM: regular rhythm OTHER: No lower extremity edema, 2 out of 6 systolic murmur best heard at the right upper sternal border. GI: COMMON NORMALS: Normal to inspection, nondistended, normoactive bowel sounds present, Soft to palpation and non-tender PALPATION: Yes Soft to palpation Neuro: COMMON NORMALS: patient oriented x3 and no focal motor deficits Urinary Catheter Management^: [place]: Cath Placed During This Visit: yes, but has since been removed by the nurse Reason for Continuing Indwelling Catheter: Acute Urinary Retention or Obstruction Urinary Catheter Date of Insertion: 07/08/20 Urinary Catheter Time of Insertion: 05:40 Date Urinary Catheter Removed: 07/08/20 Time Urinary Catheter Discontinued: 04:45 Data : 07/13/20 05:40 07/13/20 05:40 Micro: Microbiology 07/12/20 22:30 Occult Blood (FIT) - Final Stool Routine Collection A&P Assessment and plan (1) Acute respiratory failure with hypoxia: Tolerated BiPAP for a few hours during the night, PCO2 has decreased to 61 Ativan to be used as needed for anxiety when she is on the BiPAP machine Does not use oxygen at home, is now down to 4 L Rapid Covid negative negative, PCR negative, repeat Covid negative CT angiogram of the chest does not show pulmonary emboli, does show consolidation that superimposed over bilateral pleural effusions, right pleural effusion exhibits thickened enhancing wall suggesting empyema, appears stable compared to prior CT scan dated from 12/14/2019, new developing patchy diffuse groundglass opacities most prominently within the upper hemithorax is, indicated of bilateral interstitial pneumonia Cardiac echocardiogram shows an EF of 50%, grade 1 out of 4 diastolic dysfunction, moderate to severe aortic stenosis,, mild pulmonary hypertension, aortic valve area 1 cm? Blood cultures are positive for Staphylococcus species coagulase-negative, 2 species Chest x-ray this morning shows diffuse pulmonary edema and or bilateral pulmonary infiltrates improving CT chest: 1. Progressed hazy groundglass infiltrates in the perihilar regions and upper lobes. This is progressed since July 03, 2020. 2. Small bilateral pleural effusions slightly improved with subsegmental atelectasis in the lung bases. Enhancement of the right pleura is unchanged suspicious for empyema. Chest ultrasound on right Small right pleural effusion with pleural thickening and some internal debris. This appears partially free-flowing -Diuresed over 17 L since admission -Chest x-ray this morning shows improved pulmonary edema, does show diffuse interstitial infiltrates -Findings are concerning for acute flash from edema likely secondary to aortic stenosis, pneumonia -Unlikely to have an empyema for this long Plan: -continue BiPAP, monitor respiratory status very closely as she is a high risk of intubation, BiPAP during the night -continue azithromycin and cefepime for now -Follow sputum, MRSA nares, urine bacterial antigens -Repeat blood cultures negative so far, first set of blood cultures all for positive for coagulase-negative staph, will have microbiology getting identification, contamination versus infection -Continue Lovenox, Eliquis on hold for possible surgical intervention -Creatinine up to 1.2, decrease Bumex 1 mg every 24 hours, hold metolazone, continue midodrine, due to a few low blood pressures strict I's and O's, fluid restrictions to 1500 cc, diuresed over 17 L -Hold Diamox . used to maintain bicarb less than 25 -Continue PT OT, up out of bed -Incentive spirometer, flutter valve -Advair, albuterol -Vitamin C, zinc -Cardiology consulted for consideration of surgical invention for aortic valve once pulmonary status is improved -Full code -Lovenox for DVT prophylaxis Status: Acute (2) Atypical chest pain: Status: Acute (3) Aortic valve stenosis: Cardiology on consult Status: Acute Qualifiers: Cardiac valve disease etiology: nonrheumatic Qualified Code(s): I35.0 - Nonrheumatic aortic (valve) stenosis (4) Acute dyspnea: Status: Acute (5) Gram-positive bacteremia: Likely contamination Status: Acute Additional A&P Information Diastolic congestive heart failure exacerbation bumex, metolazone No active infarctive or ischemic changes on EKG, troponin with negative delta PE has been ruled out Anemia DVT/PE history in the past She takes Eliquis 5 mg twice a day, on hold, on therapeutic lovenox Hypothyroidism: Continue levothyroxine 100 mcg Full code Cardiac diet DVT prophylaxis therapeutic Lovenox PLAN: Discontinue vitamin C and continue high-dose PPI. Hold anticoagulation. Patient may require further evaluation with upper endoscopy/colonoscopy once her respiratory status optimized. Given atypical chest pain starting with EGD would be an appropriate next step. Discussed with Dr. Riddle. Once patient clinically improves she will need to be evaluated for TAVR. Attestations Medical Necessity Statement*: Patient with respiratory failure and anemia requires close inpatient monitoring and treatment. 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
[2020-07-13] MEDS: azithromycin 250 mg Tablet PO (12:38)
[2020-07-13] MEDS: docusate sodium 100 mg Capsule PO (14:53)
[2020-07-13] MEDS: gabapentin 300 mg Capsule PO (22:48)
[2020-07-13] MEDS: atorvastatin 40 mg Tablet 20 MG PO (22:48)
[2020-07-14] VITALS (10 sets, daily range): BP systolic 95–119; BP diastolic 47–64; PULSE 66–96; RESP 16–19; TEMP 36.4–36.8; O2SAT 94–98
[2020-07-14 04:20] LABS: ABG PCO2 49.3 mmHg (35-45); Arterial Blood Gas Hematocrit 28.4 % (37-47); Base Excess ABG 13.3 mmol/L (-2.0-2.0); Blood Gas Allen Test Pos; Blood Gas Sample Site Radial, left; Blood Gas Sample Type Arterial; Oxygen Device NC; PO2 ABG 65.3 mmHg (80.0-100.0)
[2020-07-14] MEDS: buPROPion SR (12 HR) 150 mg Tablet PO ×2 (05:57→22:33)
[2020-07-14] MEDS: midodrine 5 mg TABLET PO ×3 (05:57→22:33)
[2020-07-14] MEDS: duloxetine 60 mg Capsule PO (05:57)
[2020-07-14] MEDS: pantoprazole DR 40 mg Tablet PO ×2 (05:58→22:33)
[2020-07-14] MEDS: spironolactone 25 mg Tablet PO (05:58)
[2020-07-14] MEDS: levothyroxine 100 mcg Tablet PO (05:58)
[2020-07-14 06:06] LABS: Basophils % 0.2 %; Eosinophils # 0.3 10^3/uL (0.0-0.8); Eosinophils % 3.4 %; Hematocrit 29.5 % (37.0-47.0); Lymphocytes # 2.3 10^3/uL (0.8-4.8); Lymphocytes % 23.9 %; Mean Corpuscular HGB Conc 30.5 g/dL (30.0-36.0); Mean Corpuscular Hemoglobin 23.7 pg (28.0-34.0); Mean Corpuscular Volume 77.6 fL (81-99); Mean Platelet Volume 11.4 fL (7.4-10.4); Monocytes # 1.8 10^3/uL (0.2-0.9); Monocytes % 18.5 %; Neutrophils # 5.18 10^3/uL (1.8-7.7); Neutrophils % 53.8 %; Nucleated Red Blood Cells % 0 %; Platelet Count 289 10^3/cmm (130-400); Red Cell Distribution Width 18.4 % (12.1-15.1); White Blood Count 9.6 10^3/uL (4.0-10.0)
[2020-07-14] MEDS: sucralfate 1 gm/10 mL Oral Liq UDC PO ×4 (06:10→22:32)
[2020-07-14 06:23] LABS: Alanine Aminotransferase 52 U/L (0-33); Albumin Level 2.8 g/dL (3.5-5.2); Alkaline Phosphatase 354 IU/L (35-105); Anion Gap 8.9 (5-19); Aspartate Amino Transferase 68 U/L (0-32); Blood Urea Nitrogen 35 mg/dL (6-20); Calcium 9.5 mg/dL (8.5-10.5); Carbon Dioxide 37 mmol/L (22-29); Chloride 94 mmol/L (98-107); Globulin 3.2 g/dL (1.3-4.6); Glomerular Filtration Rate 65.5 mL/min (90-130); Glucose 81 mg/dL (65-115); Magnesium 1.9 mg/dL (1.7-2.3); Osmolality Calculated 289 mOsm/kg (285-295); Phosphorus 1.7 mg/dL (2.5-4.5); Potassium 3.9 mmol/L (3.5-5.1); Sodium 136 mmol/L (136-145); Total Bilirubin 0.6 mg/dL (0.15-1.2)
[2020-07-14 07:19] LABS: NT Pro B Type Natriuretic Pept 746 pg/mL (0-125); Procalcitonin 0.53 ng/mL (0-0.5)
[2020-07-14] MEDS: losartan 50 mg Tablet 25 MG PO (08:27)
[2020-07-14] MEDS: propranolol 20 mg Tablet 10 MG PO ×2 (08:27→17:19)
[2020-07-14] MEDS: aspirin 81 mg EC Tablet PO (08:27)
[2020-07-14] MEDS: zinc gluconate 50 mg Tablet PO (08:27)
[2020-07-14] MEDS: ferrous sulfate EC 325 mg Tablet PO ×2 (08:28→17:19)
[2020-07-14] MEDS: potassium chloride ER 20 mEq Tablet 40 MEQ PO ×2 (08:28→22:32)
[2020-07-14] MEDS: bumetanide 0.25 mg/mL SDV 4 mL 1 MG IV (08:30)
--- NOTE | 2020-07-14 09:05 | PC.SOCIAL ---
*IMM UPDATE* Gave IMM to patient. Provided copy of page 2 of IMM. 9:03am Initialed, dated, timed and placed in chart.
[2020-07-14] MEDS: cefepime 1,000 MG in sodium chloride 0.9% (plus) 50 ML 100 MG IV ×2 (09:59→22:42)
--- NOTE | 2020-07-14 10:10 | PM.PN ---
Subjective Subjective: Interval history: Patient reports minimal shortness of breath this morning but denies chest pain. Hemoglobin and platelets are stable. Medications: Reviewed: Yes Medication Review Details: Current Medications Acetaminophen (Acetaminophen 325 Mg Tablet) 650 mg PO Q6H PRN PRN Reason: MILD PAIN Last Admin: 07/13/20 04:18 Dose: 650 mg Documented by: Acetazolamide (Acetazolamide 250 Mg Tablet) 500 mg PO Q12H [facility] Last Admin: 07/11/20 20:09 Dose: 500 mg Documented by: Albuterol Sulfate (Albuterol 2.5 Mg/0.5 Ml Neb) 2.5 mg INHALATION Q4H.RESPIRATORY PRN PRN Reason: SHORTNESS OF BREATH Last Admin: 07/06/20 15:47 Dose: 2.5 mg Documented by: Albuterol/Ipratropium (Ipratropium-Albuterol 3 Ml Neb) 3 ml INHALATION Q6H.RESPIRATORY PRN PRN Reason: SHORTNESS OF BREATH Apixaban (Apixaban 5 Mg Tablet) 5 mg PO BID@ [facility] Last Admin: 07/05/20 07:15 Dose: 5 mg Documented by: Ascorbic Acid (Ascorbic Acid 500 Mg Tablet) 1,000 mg PO BID [facility] Last Admin: 07/13/20 08:05 Dose: 1,000 mg Documented by: Aspirin (Aspirin 81 Mg Ec Tablet) 81 mg PO DAILY [facility] Last Admin: 07/13/20 08:04 Dose: 81 mg Documented by: Atorvastatin Calcium (Atorvastatin 40 Mg Tablet) 20 mg PO DAILY@ [facility] Last Admin: 07/12/20 20:56 Dose: 20 mg Documented by: Azithromycin (Azithromycin 250 Mg Tablet) 250 mg PO Q24H [facility] Last Admin: 07/12/20 12:58 Dose: 250 mg Documented by: Bumetanide (Bumetanide 0.25 Mg/Ml Sdv 4 Ml) 1 mg IV Q24H [facility] Last Admin: 07/13/20 08:12 Dose: 1 mg Documented by: Bupropion HCl (Bupropion Sr (12 Hr) 150 Mg Tablet) 150 mg PO BID@ [facility] Last Admin: 07/13/20 06:10 Dose: 150 mg Documented by: Docusate Sodium (Docusate Sodium 100 Mg Capsule) 100 mg PO DAILY PRN PRN Reason: Constipation Duloxetine HCl (Duloxetine 60 Mg Capsule) 60 mg PO DAILY@ [facility] Last Admin: 07/13/20 06:10 Dose: 60 mg Documented by: Enoxaparin Sodium (Enoxaparin 30 Mg/0.3 Ml Syringe) 30 mg SUBCUT Q12H [facility] Last Admin: 07/12/20 06:18 Dose: 30 mg Documented by: Enoxaparin Sodium (Enoxaparin 120 Mg/0.8 Ml Syringe) 120 mg SUBCUT Q12H [facility] Last Admin: 07/12/20 06:18 Dose: 120 mg Documented by: Ferrous Sulfate (Ferrous Sulfate Ec 325 Mg Tablet) 325 mg PO BIDWM [facility] Last Admin: 07/13/20 08:04 Dose: 325 mg Documented by: Gabapentin (Gabapentin 300 Mg Capsule) 300 mg PO BEDTIME@ [facility] Last Admin: 07/12/20 20:56 Dose: 300 mg Documented by: Hydroxyzine HCl (Hydroxyzine 10 Mg Tablet) 10 mg PO Q8H PRN PRN Reason: ANXIETY Last Admin: 07/09/20 22:15 Dose: 10 mg Documented by: Cefepime HCl 1,000 mg/ Sodium (Chloride) 50 mls @ 100 mls/hr IV Q12H [facility]; Protocol Last Admin: 07/13/20 08:19 Dose: 100 mls/hr Documented by: Levothyroxine Sodium (Levothyroxine 100 Mcg Tablet) 100 mcg PO DAILY@06 [facility] Last Admin: 07/13/20 06:10 Dose: 100 mcg Documented by: Losartan Potassium (Losartan 50 Mg Tablet) 25 mg PO DAILY [facility] Last Admin: 07/13/20 08:04 Dose: 25 mg Documented by: Metolazone (Metolazone 5 Mg Tablet) 10 mg PO DAILY [facility] Last Admin: 07/12/20 08:01 Dose: 10 mg Documented by: Midodrine (Midodrine 5 Mg Tablet) 5 mg PO Q8H [facility] Last Admin: 07/13/20 04:18 Dose: 5 mg Documented by: Ondansetron HCl (Ondansetron 2 Mg/Ml Sdv 2 Ml) 4 mg IVP Q4H PRN PRN Reason: NAUSEA AND VOMITING Last Admin: 07/08/20 08:37 Dose: 4 mg Documented by: Pantoprazole Sodium (Pantoprazole Dr 40 Mg Tablet) 40 mg PO BID@ [facility] Last Admin: 07/13/20 06:10 Dose: 40 mg Documented by: Potassium Chloride (Potassium Chloride Er 20 Meq Tablet) 40 meq PO Q12H [facility] Last Admin: 07/13/20 08:04 Dose: 40 meq Documented by: Propranolol HCl (Propranolol 20 Mg Tablet) 10 mg PO BID [facility] Last Admin: 07/13/20 08:12 Dose: 10 mg Documented by: Fluticasone/Salmeterol (Fluticasone-Salmeterol 100-50 Diskus) 1 puff INHALATION BID.RESPIRATORY [facility] Last Admin: 07/12/20 19:53 Dose: 1 puff Documented by: Spironolactone (Spironolactone 25 Mg Tablet) 25 mg PO DAILY@06 [facility] Last Admin: 07/13/20 06:10 Dose: 25 mg Documented by: Sucralfate (Sucralfate 1 Gm/10 Ml Oral Liq Udc) 1 gm PO AC&BEDTIME [facility] Last Admin: 07/13/20 06:10 Dose: 1 gm Documented by: Zinc Gluconate (Zinc Gluconate 50 Mg Tablet) 50 mg PO DAILY [facility] Last Admin: 07/13/20 08:04 Dose: 50 mg Documented by: Vitals/I&O/Wt Last Vital Signs Temp 97.6 F 07/14/20 07:55 Pulse 67 07/14/20 08:00 Resp 18 07/14/20 08:00 BP 119/63 07/14/20 08:27 Pulse Ox 95 07/14/20 08:00 07/13/20 07/14/20 07/14/20 22:59 06:59 14:59 Intake Total 240 / 530 290 / 820 360 / 360 Output Total 400 / 1400 Balance 240 / -470 -110 / -580 360 / 360 Physical Exam Const: COMMON NORMALS: no acute distress and patient oriented x3 Resp: COMMON NORMALS: normal respiratory effort and clear to auscultation bilaterally AUSCULTATION: clear to auscultation bilaterally Cardio: COMMON NORMALS: regular rate and regular rhythm RATE: regular rate RHYTHM: regular rhythm OTHER: No lower extremity edema, 2 out of 6 systolic murmur best heard at the right upper sternal border. GI: COMMON NORMALS: Normal to inspection, nondistended, normoactive bowel sounds present, Soft to palpation and non-tender PALPATION: Yes Soft to palpation Neuro: COMMON NORMALS: patient oriented x3 and no focal motor deficits Urinary Catheter Management^: [place]: Cath Placed During This Visit: yes, but has since been removed by the nurse Reason for Continuing Indwelling Catheter: Acute Urinary Retention or Obstruction Urinary Catheter Date of Insertion: 07/08/20 Urinary Catheter Time of Insertion: 05:40 Date Urinary Catheter Removed: 07/08/20 Time Urinary Catheter Discontinued: 04:45 Data : 07/14/20 05:32 07/14/20 05:32 Micro: Microbiology 07/03/20 03:53 Blood Culture - Final Blood Staphylococcus sp coag neg Staphylococcus sp coag neg#2 Staphylococcus sp coag neg#3 07/03/20 03:35 Blood Culture - Final Blood Staphylococcus haemolyticus Staphylococcus epidermidis Staph capitis sub ureolyticus A&P Assessment and plan (1) Acute respiratory failure with hypoxia: Tolerated BiPAP for a few hours during the night, PCO2 has decreased to 61 Ativan to be used as needed for anxiety when she is on the BiPAP machine Does not use oxygen at home, is now down to 4 L Rapid Covid negative negative, PCR negative, repeat Covid negative CT angiogram of the chest does not show pulmonary emboli, does show consolidation that superimposed over bilateral pleural effusions, right pleural effusion exhibits thickened enhancing wall suggesting empyema, appears stable compared to prior CT scan dated from 12/14/2019, new developing patchy diffuse groundglass opacities most prominently within the upper hemithorax is, indicated of bilateral interstitial pneumonia Cardiac echocardiogram shows an EF of 50%, grade 1 out of 4 diastolic dysfunction, moderate to severe aortic stenosis,, mild pulmonary hypertension, aortic valve area 1 cm? Blood cultures are positive for Staphylococcus species coagulase-negative, 2 species Chest x-ray this morning shows diffuse pulmonary edema and or bilateral pulmonary infiltrates improving CT chest: 1. Progressed hazy groundglass infiltrates in the perihilar regions and upper lobes. This is progressed since July 03, 2020. 2. Small bilateral pleural effusions slightly improved with subsegmental atelectasis in the lung bases. Enhancement of the right pleura is unchanged suspicious for empyema. Chest ultrasound on right Small right pleural effusion with pleural thickening and some internal debris. This appears partially free-flowing -Diuresed over 17 L since admission -Chest x-ray this morning shows improved pulmonary edema, does show diffuse interstitial infiltrates -Findings are concerning for acute flash from edema likely secondary to aortic stenosis, pneumonia -Unlikely to have an empyema for this long Plan: -continue BiPAP, monitor respiratory status very closely as she is a high risk of intubation, BiPAP during the night -continue azithromycin and cefepime for now -Follow sputum, MRSA nares, urine bacterial antigens -Repeat blood cultures negative so far, first set of blood cultures all for positive for coagulase-negative staph, will have microbiology getting identification, contamination versus infection -Continue Lovenox, Eliquis on hold for possible surgical intervention -Creatinine up to 1.2, decrease Bumex 1 mg every 24 hours, hold metolazone, continue midodrine, due to a few low blood pressures strict I's and O's, fluid restrictions to 1500 cc, diuresed over 17 L -Hold Diamox . used to maintain bicarb less than 25 -Continue PT OT, up out of bed -Incentive spirometer, flutter valve -Advair, albuterol -Vitamin C, zinc -Cardiology consulted for consideration of surgical invention for aortic valve once pulmonary status is improved -Full code -Lovenox for DVT prophylaxis Status: Acute (2) Atypical chest pain: Status: Acute (3) Aortic valve stenosis: Cardiology on consult Status: Acute Qualifiers: Cardiac valve disease etiology: nonrheumatic Qualified Code(s): I35.0 - Nonrheumatic aortic (valve) stenosis (4) Acute dyspnea: Status: Acute (5) Gram-positive bacteremia: Likely contamination Status: Acute Additional A&P Information Diastolic congestive heart failure exacerbation bumex, metolazone No active infarctive or ischemic changes on EKG, troponin with negative delta PE has been ruled out Microcytic anemia due to iron deficiency, chronicity unknown. DVT/PE history in the past She takes Eliquis 5 mg twice a day, on hold, on therapeutic lovenox Hypothyroidism: Continue levothyroxine 100 mcg Full code Cardiac diet DVT prophylaxis therapeutic Lovenox PLAN: Discussed with Dr. Riddle this morning. Discussed with Dr. Briseno and we will proceed with EGD colonoscopy tomorrow morning. After that Dr. Riddle is planning to perform coronary angiogram. Continue high-dose PPI. Attestations Medical Necessity Statement*: Patient with anemia and heart failure requires close inpatient monitoring, treatment and evaluation. 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
[2020-07-14] MEDS: sodium chloride 0.9% 1,000 ML 30 ML IV (10:41)
[2020-07-14] MEDS: magnesium citrate Btl 296 mL PO ×2 (12:43→20:17)
[2020-07-14] MEDS: azithromycin 250 mg Tablet PO (13:15)
--- NOTE | 2020-07-14 15:55 | PC.NURSE ---
X1 attempt IV insertion without success 22g attempted in left upper deltoid. Patient tolerated well.
[2020-07-14] MEDS: acetaminophen 325 mg Tablet 650 MG PO (16:24)
[2020-07-14] MEDS: bisacodyl 5 mg Tablet 10 MG PO (16:25)
--- NOTE | 2020-07-14 17:28 | PM.CONSULT ---
Providers/Reason For Consult Consulting Physican/Specialty*: Ismael Little MD Reason for Consult*: Anemia Attending Physician: Ismael Little MD Primary Care Provider: Liza Davila NP History of Present Illness History of Present Illness Maria G Merritt is a 54 year old female with multiple comorbidities with a history of COPD and aortic valve stenosis. Patient is currently on Eliquis and was noted to be anemic. Patient denies any abdominal pain, nausea, vomiting, constipation, diarrhea, hematemesis, melena, hematochezia. Her grandmother had colon cancer. No prior EGD or colonoscopy. No prior history of peptic ulcer disease in the past. Review of Systems General: Reports: 10 or more systems reviewed and unremarkable except in HPI and below Meds/Allergies Home Medications and Allergies Home Medications Medication Instructions Recorded Confirmed Last Taken Type gabapentin 300 mg capsule 300 mg PO BEDTIME@06/17/19 07/03/20 05/17/20 History levothyroxine 100 mcg capsule 100 mcg PO DAILY@06/17/19 07/03/20 05/18/20 History montelukast 10 mg tablet 10 mg PO DAILY@06/17/19 07/03/20 05/17/20 History Eliquis 5 mg PO BID@10/07/19 07/03/20 05/18/20 History baclofen 10 mg PO TID PRN 10/07/19 07/03/20 05/18/20 History bupropion HCl 150 mg PO BID@01/21/20 07/03/20 05/18/20 History omeprazole 20 mg PO BID@01/21/20 07/03/20 05/18/20 History oxycodone-acetaminophen 1 tab PO Q4H PRN 01/21/20 07/03/20 05/18/20 History albuterol sulfate 90 mcg/actuation 2 puff INHALATION Q6H PRN 02/05/20 07/03/20 05/18/20 History aerosol inhaler loratadine 10 mg capsule 10 mg PO DAILY@02/05/20 07/03/20 05/18/20 History spironolactone 25 mg tablet 25 mg PO DAILY@02/18/20 07/03/20 05/18/20 History zonisamide 100 mg capsule See Rx Instructions .ROUTE 10/13/20 01/23/21 12/07/20 Rx .COMPLEX #540 cap aripiprazole [Abilify] 5 mg PO DAILY@05/18/20 07/03/20 05/17/20 History paroxetine HCl [Paxil] 10 mg PO BEDTIME@05/18/20 07/03/20 05/17/20 History rosuvastatin [Crestor] 40 mg PO DAILY@05/18/20 07/03/20 05/17/20 History losartan 25 mg tablet 25 mg PO DAILY #90 tab 06/22/20 07/03/20 Unknown Rx albuterol sulfate 2.5 mg INHALATION Q6H PRN 07/03/20 07/03/20 Unknown History fluticasone propionate 1 - 2 spray INTRANASAL DAILY PRN 07/03/20 07/03/20 Unknown History nitroglycerin [Nitrostat] 0.4 mg SUBLINGUAL Q5M PRN 07/03/20 07/03/20 Unknown History potassium chloride [Klor-Con M20] 20 meq PO BID 07/03/20 07/03/20 Unknown History propranolol 10 mg PO BID 07/03/20 07/03/20 Unknown History sennosides-docusate sodium 1 tab PO DAILY PRN 07/03/20 07/03/20 Unknown History [Senexon-S] simvastatin 40 mg PO DAILY 07/03/20 07/03/20 Unknown History Allergies Allergy/AdvReac Type Severity Reaction Status Date / Time adhesive tape Allergy Unknown Verified 06/17/20 12:25 influenza virus vaccine qs Allergy Unknown Verified 06/17/20 12:25 [id number] (36 mos, up) [From Single Use EZ Flu] Flu Allergy Unknown Unknown Uncoded 07/09/20 13:04 Current Medications Current Medications Generic Name Dose Route Start Last Admin Trade Name Freq PRN Reason Stop Dose Admin Acetaminophen 650 mg 07/13/20 04:07 07/14/20 16:24 Acetaminophen 325 Mg Tablet PO 650 mg Q6H PRN Administration MILD PAIN Acetazolamide 500 mg 07/10/20 21:00 07/11/20 20:09 Acetazolamide 250 Mg Tablet PO 500 mg Q12H VALDO Administration Albuterol Sulfate 2.5 mg 07/06/20 11:13 07/13/20 09:05 Albuterol 2.5 Mg/0.5 Ml Neb INHALATION 2.5 mg Q4H.RESPIRATORY PRN Administration SHORTNESS OF BREATH Apixaban 5 mg 07/03/20 06:00 07/05/20 07:15 Apixaban 5 Mg Tablet PO 5 mg BID@ VALDO Administration Aspirin 81 mg 07/03/20 10:15 07/14/20 08:27 Aspirin 81 Mg Ec Tablet PO 81 mg DAILY VALDO Administration Atorvastatin Calcium 20 mg 07/03/20 22:00 07/13/20 22:48 Atorvastatin 40 Mg Tablet PO 20 mg DAILY@ VALDO Administration Azithromycin 250 mg 07/08/20 13:00 07/14/20 13:15 Azithromycin 250 Mg Tablet PO 250 mg Q24H VALDO Administration Bumetanide 1 mg 07/12/20 08:30 07/14/20 08:30 Bumetanide 0.25 Mg/Ml Sdv 4 Ml IV 1 mg Q24H VALDO Administration Bupropion HCl 150 mg 07/03/20 06:00 07/14/20 05:57 Bupropion Sr (12 Hr) 150 Mg Tablet PO 150 mg BID@ VALDO Administration Docusate Sodium 100 mg 07/03/20 05:12 07/13/20 14:53 Docusate Sodium 100 Mg Capsule PO 100 mg DAILY PRN Administration Constipation Duloxetine HCl 60 mg 07/03/20 06:00 07/14/20 05:57 Duloxetine 60 Mg Capsule PO 60 mg DAILY@06 VALDO Administration Enoxaparin Sodium 30 mg 07/05/20 19:00 07/12/20 06:18 Enoxaparin 30 Mg/0.3 Ml Syringe SUBCUT 30 mg Q12H VALDO Administration Enoxaparin Sodium 120 mg 07/05/20 19:00 07/12/20 06:18 Enoxaparin 120 Mg/0.8 Ml Syringe SUBCUT 120 mg Q12H VALDO Administration Ferrous Sulfate 325 mg 07/12/20 18:00 07/14/20 17:19 Ferrous Sulfate Ec 325 Mg Tablet PO 325 mg BIDWM VALDO Administration Gabapentin 300 mg 07/03/20 22:00 07/13/20 22:48 Gabapentin 300 Mg Capsule PO 300 mg BEDTIME@ VALDO Administration Hydroxyzine HCl 10 mg 07/07/20 17:13 07/14/20 05:57 Hydroxyzine 10 Mg Tablet PO 10 mg Q8H PRN Administration ANXIETY Cefepime HCl 1,000 mg/ Sodium 50 mls @ 100 mls/hr 07/09/20 09:15 07/14/20 10:29 Chloride IV Infused Q12H VALDO Infusion Protocol Sodium Chloride 1,000 mls @ 30 mls/hr 07/14/20 09:13 07/14/20 10:41 Sodium Chloride 0.9% IV 07/15/20 09:12 30 mls/hr .Q24H ONE Administration Levothyroxine Sodium 100 mcg 07/03/20 06:00 07/14/20 05:58 Levothyroxine 100 Mcg Tablet PO 100 mcg DAILY@06 VALDO Administration Losartan Potassium 25 mg 07/03/20 09:00 07/14/20 08:27 Losartan 50 Mg Tablet PO 25 mg DAILY VALDO Administration Magnesium Citrate 296 ml 07/14/20 12:00 07/14/20 12:43 Magnesium Citrate Btl 296 Ml PO 07/14/20 20:01 296 ml 1200,2000 VALDO Administration Metolazone 10 mg 07/08/20 09:00 07/12/20 08:01 Metolazone 5 Mg Tablet PO 10 mg DAILY VALDO Administration Midodrine 5 mg 07/08/20 13:00 07/14/20 13:15 Midodrine 5 Mg Tablet PO 5 mg Q8H VALDO Administration Ondansetron HCl 4 mg 07/07/20 09:29 07/08/20 08:37 Ondansetron 2 Mg/Ml Sdv 2 Ml IVP 4 mg Q4H PRN Administration NAUSEA AND VOMITING Pantoprazole Sodium 40 mg 07/03/20 06:00 07/14/20 05:[address] 40 Mg Tablet PO 40 mg BID@, VALDO Administration Potassium Chloride 40 meq 07/06/20 09:05 07/14/20 08:28 Potassium Chloride Er 20 Meq Tablet PO 40 meq Q12H VALDO Administration Propranolol HCl 10 mg 07/03/20 18:00 07/14/20 17:19 Propranolol 20 Mg Tablet PO 10 mg BID VALDO Administration Fluticasone/Salmeterol 1 puff 07/06/20 20:00 07/14/20 07:59 Fluticasone-Salmeterol 100-50 Diskus INHALATION 1 puff BID.RESPIRATORY VALDO Administration Spironolactone 25 mg 07/03/20 06:00 07/14/20 05:58 Spironolactone 25 Mg Tablet PO 25 mg DAILY@06 VALDO Administration Sucralfate 1 gm 07/12/20 17:00 07/14/20 16:25 Sucralfate 1 Gm/10 Ml Oral Liq Udc PO 1 gm AC&BEDTIME VALDO Administration Zinc Gluconate 50 mg 07/06/20 11:45 07/14/20 08:27 Zinc Gluconate 50 Mg Tablet PO 50 mg DAILY VALDO Administration PFSH Acute PFSH: Medical History Abnormal angiogram Aortic valve stenosis Chronic back pain COPD (chronic obstructive pulmonary disease) Generalized anxiety disorder Hyperlipidemia Hypertension Hypothyroidism Major depressive disorder, recurrent, moderate Obstructive pyelonephritis Osteoarthritis Sleep apnea Ureteral calculus, right Surgical History H/O cardiac catheterization H/O cystoscopy H/O lateral meniscus repair of left knee S/P thyroidectomy Family History Father Hypertension Hyperlipidemia Cancer Brother Hypertension CAD (coronary artery disease) Hyperlipidemia Sister Hypertension Cancer Grandfather Hypertension Diabetes Grandmother Hypertension CAD (coronary artery disease) Cancer Diabetes Mother CAD (coronary artery disease) Hypertension Hyperlipidemia Cancer Denies family history of Anesthesia complication Social History Smoking and tobacco status: current every day smoker cigarettes Years cigarettes smoked: 34 Quit status (tobacco): considering quitting Smoking risk assessment/counseling performed?: Yes Alcohol intake: current Alcohol intake frequency: holidays/special occasions only Desire information about alcohol rehabilitation?: No Counseling given: No Marital status: Single Current gender identity: Female Vitals/I&O/Wt Last Vital Signs Temp 98.2 F 07/14/20 15:44 Pulse 66 07/14/20 15:44 Resp 17 07/14/20 15:44 BP 95/56 07/14/20 15:44 Pulse Ox 97 07/14/20 15:44 07/14/20 07/14/20 07/14/20 06:59 14:59 22:59 Intake Total 290 / 820 770 / 770 Output Total 400 / 1400 1600 / 1600 Balance -110 / -580 -830 / -830 Physical Exam Narrative: EXAM NARRATIVE: HEENT: Normocephalic Eye: Sclera /conjunctiva normal Abdomen: Soft to palpation Neurological: Oriented to place person and time Skin: Intact, no lesions appreciated on gross exam Urinary Catheter Management^: [place]: Cath Placed During This Visit: yes, but has since been removed by the nurse Reason for Continuing Indwelling Catheter: Acute Urinary Retention or Obstruction Urinary Catheter Date of Insertion: 07/08/20 Urinary Catheter Time of Insertion: 05:40 Date Urinary Catheter Removed: 07/08/20 Time Urinary Catheter Discontinued: 04:45 Data Micro: Micro: Microbiology 07/03/20 03:53 Blood Culture - Fi nal Blood Staphylococcus sp coag neg Staphylococcus sp coag neg#2 Staphylococcus sp coag neg#3 07/03/20 03:35 Blood Culture - Fi nal Blood Staphylococcus haemolyticus Staphylococcus epidermidis Staph capitis s ub ureolyticus A&P Assessment and plan (1) Anemia: 54-year-old female with aortic stenosis who needs aortic valve replacements potentially in the future who is currently anemic .patient is currently on Eliquis though it has been off for 48 hours. Plan for EGD/colonoscopy under MAC tomorrow N.p.o. after midnight Procedure, risks, benefits and alternatives have been discussed with the patient who wishes to proceed with surgery. Status: Acute Qualifiers: Anemia type: iron deficiency Iron deficiency anemia type: unspecified iron deficiency Qualified Code(s): D50.9 - Iron deficiency anemia, unspecified Coding Level of Care Code Acute Cardiopulmonary Technologist Chief for [facility] Fwd Diagnoses Anemia D50.9 Anemia type: iron deficiency Iron deficiency anemia type: unspecified iron deficiency
--- NOTE | 2020-07-14 18:30 | PC.NURSE ---
pt consent signed and on chart. pt had 2 loose, large bowel movements. pt iv replaced in right hand.
[2020-07-14] MEDS: gabapentin 300 mg Capsule PO (22:32)
[2020-07-14] MEDS: atorvastatin 40 mg Tablet 20 MG PO (22:33)
[2020-07-15] VITALS (13 sets, daily range): BP systolic 83–118; BP diastolic 40–73; PULSE 65–79; RESP 16–22; TEMP 36.3–37.1; O2SAT 1–98
--- NOTE | 2020-07-15 08:01 | PC.NURSE ---
I reported the low bp to the charge nurse. 87/43 and 83/51. manual bp 92/40.
--- NOTE | 2020-07-15 08:19 | P.PN_ITS ---
Subjective Subjective: Interval history: Patient denies any complaints this morning except reports that yesterday she had slight headache. Breathing is comfortable. She is somnolent this morning. reports that she finished bowel prep. She was noted to have blood pressure 92/40 this morning and 500 mL bolus normal saline was requested. Hemoglobin and platelets are stable. Early records are reviewed. There was a concern for empyema. Medications: Reviewed: Yes Medication Review Details: Current Medications Acetaminophen (Acetaminophen 325 Mg Tablet) 650 mg PO Q6H PRN PRN Reason: MILD PAIN Last Admin: 07/13/20 04:18 Dose: 650 mg Documented by: Acetazolamide (Acetazolamide 250 Mg Tablet) 500 mg PO Q12H PENDING SALE TO [facility] Last Admin: 07/11/20 20:09 Dose: 500 mg Documented by: Albuterol Sulfate (Albuterol 2.5 Mg/0.5 Ml Neb) 2.5 mg INHALATION Q4H.RESPIRATORY PRN PRN Reason: SHORTNESS OF BREATH Last Admin: 07/06/20 15:47 Dose: 2.5 mg Documented by: Albuterol/Ipratropium (Ipratropium-Albuterol 3 Ml Neb) 3 ml INHALATION Q6H.RESPIRATORY PRN PRN Reason: SHORTNESS OF BREATH Apixaban (Apixaban 5 Mg Tablet) 5 mg PO BID@ PENDING SALE TO [facility] Last Admin: 07/05/20 07:15 Dose: 5 mg Documented by: Ascorbic Acid (Ascorbic Acid 500 Mg Tablet) 1,000 mg PO BID PENDING SALE TO [facility] Last Admin: 07/13/20 08:05 Dose: 1,000 mg Documented by: Aspirin (Aspirin 81 Mg Ec Tablet) 81 mg PO DAILY PENDING SALE TO [facility] Last Admin: 07/13/20 08:04 Dose: 81 mg Documented by: Atorvastatin Calcium (Atorvastatin 40 Mg Tablet) 20 mg PO DAILY@22 PENDING SALE TO [facility] Last Admin: 07/12/20 20:56 Dose: 20 mg Documented by: Azithromycin (Azithromycin 250 Mg Tablet) 250 mg PO Q24H PENDING SALE TO [facility] Last Admin: 07/12/20 12:58 Dose: 250 mg Documented by: Bumetanide (Bumetanide 0.25 Mg/Ml Sdv 4 Ml) 1 mg IV Q24H PENDING SALE TO [facility] Last Admin: 07/13/20 08:12 Dose: 1 mg Documented by: Bupropion HCl (Bupropion Sr (12 Hr) 150 Mg Tablet) 150 mg PO BID@ PENDING SALE TO [facility] Last Admin: 07/13/20 06:10 Dose: 150 mg Documented by: Docusate Sodium (Docusate Sodium 100 Mg Capsule) 100 mg PO DAILY PRN PRN Reason: Constipation Duloxetine HCl (Duloxetine 60 Mg Capsule) 60 mg PO DAILY@06 PENDING SALE TO [facility] Last Admin: 07/13/20 06:10 Dose: 60 mg Documented by: Enoxaparin Sodium (Enoxaparin 30 Mg/0.3 Ml Syringe) 30 mg SUBCUT Q12H PENDING SALE TO [facility] Last Admin: 07/12/20 06:18 Dose: 30 mg Documented by: Enoxaparin Sodium (Enoxaparin 120 Mg/0.8 Ml Syringe) 120 mg SUBCUT Q12H PENDING SALE TO [facility] Last Admin: 07/12/20 06:18 Dose: 120 mg Documented by: Ferrous Sulfate (Ferrous Sulfate Ec 325 Mg Tablet) 325 mg PO BIDWM PENDING SALE TO [facility] Last Admin: 07/13/20 08:04 Dose: 325 mg Documented by: Gabapentin (Gabapentin 300 Mg Capsule) 300 mg PO BEDTIME@ PENDING SALE TO [facility] Last Admin: 07/12/20 20:56 Dose: 300 mg Documented by: Hydroxyzine HCl (Hydroxyzine 10 Mg Tablet) 10 mg PO Q8H PRN PRN Reason: ANXIETY Last Admin: 07/09/20 22:15 Dose: 10 mg Documented by: Cefepime HCl 1,000 mg/ Sodium (Chloride) 50 mls @ 100 mls/hr IV Q12H PENDING SALE TO [facility]; Protocol Last Admin: 07/13/20 08:19 Dose: 100 mls/hr Documented by: Levothyroxine Sodium (Levothyroxine 100 Mcg Tablet) 100 mcg PO DAILY@06 PENDING SALE TO [facility] Last Admin: 07/13/20 06:10 Dose: 100 mcg Documented by: Losartan Potassium (Losartan 50 Mg Tablet) 25 mg PO DAILY PENDING SALE TO [facility] Last Admin: 07/13/20 08:04 Dose: 25 mg Documented by: Metolazone (Metolazone 5 Mg Tablet) 10 mg PO DAILY PENDING SALE TO [facility] Last Admin: 07/12/20 08:01 Dose: 10 mg Documented by: Midodrine (Midodrine 5 Mg Tablet) 5 mg PO Q8H PENDING SALE TO [facility] Last Admin: 07/13/20 04:18 Dose: 5 mg Documented by: Ondansetron HCl (Ondansetron 2 Mg/Ml Sdv 2 Ml) 4 mg IVP Q4H PRN PRN Reason: NAUSEA AND VOMITING Last Admin: 07/08/20 08:37 Dose: 4 mg Documented by: Pantoprazole Sodium (Pantoprazole Dr 40 Mg Tablet) 40 mg PO BID@ PENDING SALE TO [facility] Last Admin: 07/13/20 06:10 Dose: 40 mg Documented by: Potassium Chloride (Potassium Chloride Er 20 Meq Tablet) 40 meq PO Q12H PENDING SALE TO [facility] Last Admin: 07/13/20 08:04 Dose: 40 meq Documented by: Propranolol HCl (Propranolol 20 Mg Tablet) 10 mg PO BID PENDING SALE TO [facility] Last Admin: 07/13/20 08:12 Dose: 10 mg Documented by: Fluticasone/Salmeterol (Fluticasone-Salmeterol 100-50 Diskus) 1 puff INHALATION BID.RESPIRATORY PENDING SALE TO [facility] Last Admin: 07/12/20 19:53 Dose: 1 puff Documented by: Spironolactone (Spironolactone 25 Mg Tablet) 25 mg PO DAILY@06 PENDING SALE TO [facility] Last Admin: 07/13/20 06:10 Dose: 25 mg Documented by: Sucralfate (Sucralfate 1 Gm/10 Ml Oral Liq Udc) 1 gm PO AC&BEDTIME PENDING SALE TO [facility] Last Admin: 07/13/20 06:10 Dose: 1 gm Documented by: Zinc Gluconate (Zinc Gluconate 50 Mg Tablet) 50 mg PO DAILY PENDING SALE TO [facility] Last Admin: 07/13/20 08:04 Dose: 50 mg Documented by: Vitals/I&O/Wt Last Vital Signs Temp 98.2 F 07/15/20 08:00 Pulse 75 07/15/20 08:12 Resp 18 07/15/20 08:12 BP 92/40 07/15/20 08:01 Pulse Ox 95 07/15/20 08:12 07/14/20 07/15/20 07/15/20 22:59 06:59 14:59 Intake Total 110 / 880 530 / 1410 Output Total 750 / 2350 Balance 110 / -720 -220 / -940 Physical Exam Const: COMMON NORMALS: no acute distress and patient oriented x3 Resp: COMMON NORMALS: normal respiratory effort and clear to auscultation renae aterally AUSCULTATION: clear to auscultation bilaterally Cardio: COMMON NORMALS: regular rate and regular rhythm RATE: regular rate RHYTHM: regular rhythm OTHER: No lower extremity edema, 2 out of 6 systolic murmur best heard at the right upper sternal border. GI: COMMON NORMALS: Normal to inspection, nondistended, normoactive bowel sounds present, Soft to palpation and non-tender PALPATION: Yes Soft to palp ation Neuro: COMMON NORMALS: patient oriented x3 and no focal motor deficits Urinary Catheter Management^: [place]: Cath Placed During This Visit: yes, but has since been removed by the nurse Reason for Continuing Indwelling Catheter: Acute Urinary Retention or Obst ruction Urinary Catheter Date of Insertion: 07/08/20 Urinary Catheter Time of Insertion: 05:40 Date Urinary Catheter Removed: 07/08/20 Time Urinary Catheter Discontinued: 04:45 Data : 07/14/20 05:32 07/14/20 05:32 A&P Assessment and plan (1) Acute respiratory failure with hypoxia: Status: Acute (2) Atypical chest pain: Status: Acute (3) Aortic valve stenosis: Cardiology on consult Status: Acute Qualifiers: Cardiac valve disease etiology: nonrheumatic Qualified Code(s): I35.0 - Nonrheumatic aortic (valve) stenosis (4) Acute dyspnea: Status: Acute (5) Gram-positive bacteremia: Likely contamination but true infection cannot be ruled out especially in view of concerning findings of empyema. Status: Acute (6) Community acquired pneumonia: Present on admission. Concern for underlying empyema. Status: Acute Additional A&P Information Diastolic congestive heart failure exacerbation bumex, metolazone No active infarctive or ischemic changes on EKG, troponin with negative delta PE has been ruled out Microcytic anemia due to iron deficiency, chronicity unknown. DVT/PE history in the past She takes Eliquis 5 mg twice a day, on hold, on therapeutic lovenox Hypothyroidism: Continue levothyroxine 100 mcg Full code Cardiac diet DVT prophylaxis therapeutic Lovenox PLAN: Hold antihypertensive medications for now including diuretic. Evaluate blood pressure post fluid administration. Consider transferring to ICU if BP not improving. If improved/stable we may proceed with procedure otherwise we may need to postpone EGD/colonoscopy. Will repeat blood cultures and change antibiotics to Levaquin and vancomycin for now as pneumonia/empyema cannot be ruled out. Consider repeating CT of chest. COVID-19 test has been negative. Will discuss with Dr. Riddle to consider LAMINE Attestations Medical Necessity Statement*: Patient with pneumonia and hypotension requires close inpatient monitoring and treatment Time Spent in Patient Care: Greater than 35 minutes (>than 50% of time spent in counselling and/or direct pt care on unit) . Coding Level of Care Code Acute Oliver Filter Operator for g Fwd Diagnoses Acute respiratory failure with hypoxia J96.01 Atypical chest pain R07.89 Aortic valve stenosis I35.0 Cardiac valve disease etiology: nonrheumatic Acute dyspnea R06.00 Gram-positive bacteremia R78.81 Community acquired pneumonia J18.9
--- NOTE | 2020-07-15 08:58 | PC.NURSE ---
patient left the floor at this time with RN for GI procedure.
--- NOTE | 2020-07-15 09:07 | PM.PN ---
Subjective Subjective: Interval history: Patient had the upper and lower endoscopies today. She was found to have some features of gastritis. She also had a polyp in the colon. No active bleeding was noted. Patient had a 3 out of the 4 blood culture bottles from 07/03/2020 revealing staph, coagulase-negative Medications: Reviewed: Yes Medication Review Details: Current Medications Acetaminophen (Acetaminophen 325 Mg Tablet) 650 mg PO Q6H PRN PRN Reason: MILD PAIN Last Admin: 07/14/20 16:24 Dose: 650 mg Documented by: Acetazolamide (Acetazolamide 250 Mg Tablet) 500 mg PO Q12H [facility] Last Admin: 07/11/20 20:09 Dose: 500 mg Documented by: Albuterol Sulfate (Albuterol 2.5 Mg/0.5 Ml Neb) 2.5 mg INHALATION Q4H.RESPIRATORY PRN PRN Reason: SHORTNESS OF BREATH Last Admin: 07/13/20 09:05 Dose: 2.5 mg Documented by: Albuterol/Ipratropium (Ipratropium-Albuterol 3 Ml Neb) 3 ml INHALATION Q6H.RESPIRATORY PRN PRN Reason: SHORTNESS OF BREATH Apixaban (Apixaban 5 Mg Tablet) 5 mg PO BID@ [facility] Last Admin: 07/05/20 07:15 Dose: 5 mg Documented by: Aspirin (Aspirin 81 Mg Ec Tablet) 81 mg PO DAILY [facility] Last Admin: 07/14/20 08:27 Dose: 81 mg Documented by: Atorvastatin Calcium (Atorvastatin 40 Mg Tablet) 20 mg PO DAILY@ [facility] Last Admin: 07/14/20 22:33 Dose: 20 mg Documented by: Bumetanide (Bumetanide 0.25 Mg/Ml Sdv 4 Ml) 1 mg IV Q24H [facility] Last Admin: 07/14/20 08:30 Dose: 1 mg Documented by: Bupropion HCl (Bupropion Sr (12 Hr) 150 Mg Tablet) 150 mg PO BID@ [facility] Last Admin: 07/15/20 05:17 Dose: Not Given Documented by: Docusate Sodium (Docusate Sodium 100 Mg Capsule) 100 mg PO DAILY PRN PRN Reason: Constipation Last Admin: 07/13/20 14:53 Dose: 100 mg Documented by: Duloxetine HCl (Duloxetine 60 Mg Capsule) 60 mg PO DAILY@06 [facility] Last Admin: 07/15/20 05:17 Dose: Not Given Documented by: Enoxaparin Sodium (Enoxaparin 30 Mg/0.3 Ml Syringe) 30 mg SUBCUT Q12H [facility] Last Admin: 07/12/20 06:18 Dose: 30 mg Documented by: Enoxaparin Sodium (Enoxaparin 120 Mg/0.8 Ml Syringe) 120 mg SUBCUT Q12H [facility] Last Admin: 07/12/20 06:18 Dose: 120 mg Documented by: Ferrous Sulfate (Ferrous Sulfate Ec 325 Mg Tablet) 325 mg PO BIDWM [facility] Last Admin: 07/14/20 17:19 Dose: 325 mg Documented by: Gabapentin (Gabapentin 300 Mg Capsule) 300 mg PO BEDTIME@22 [facility] Last Admin: 07/14/20 22:32 Dose: 300 mg Documented by: Hydroxyzine HCl (Hydroxyzine 10 Mg Tablet) 10 mg PO Q8H PRN PRN Reason: ANXIETY Last Admin: 07/14/20 05:57 Dose: 10 mg Documented by: Sodium Chloride (Sodium Chloride 0.9%) 1,000 mls @ 30 mls/hr IV .Q24H ONE Stop: 07/15/20 09:12 Last Admin: 07/14/20 10:41 Dose: 30 mls/hr Documented by: Potassium Phosphate 30 mmol/ (Sodium Chloride) 110 mls @ 25 mls/hr IV ONCE ONE Stop: 07/15/20 12:43 Vancomycin HCl / Sodium (Chloride) 250 mls @ 0 mls/hr [id number] PROTOCOL [facility]; Protocol Levofloxacin/Dextrose (Levaquin-D5w) 750 mg in 150 mls @ 100 mls/hr IV Q24H [facility]; Protocol Levothyroxine Sodium (Levothyroxine 100 Mcg Tablet) 100 mcg PO DAILY@06 [facility] Last Admin: 07/15/20 05:17 Dose: Not Given Documented by: Losartan Potassium (Losartan 50 Mg Tablet) 25 mg PO DAILY [facility] Last Admin: 07/14/20 08:27 Dose: 25 mg Documented by: Metolazone (Metolazone 5 Mg Tablet) 10 mg PO DAILY [facility] Last Admin: 07/12/20 08:01 Dose: 10 mg Documented by: Midodrine (Midodrine 5 Mg Tablet) 5 mg PO Q8H [facility] Last Admin: 07/15/20 05:17 Dose: Not Given Documented by: Ondansetron HCl (Ondansetron 2 Mg/Ml Sdv 2 Ml) 4 mg IVP Q4H PRN PRN Reason: NAUSEA AND VOMITING Last Admin: 07/08/20 08:37 Dose: 4 mg Documented by: Pantoprazole Sodium (Pantoprazole Dr 40 Mg Tablet) 40 mg PO BID@,22 [facility] Last Admin: 07/15/20 05:17 Dose: Not Given Documented by: Potassium Chloride (Potassium Chloride Er 20 Meq Tablet) 40 meq PO Q12H [facility] Last Admin: 07/14/20 22:32 Dose: 40 meq Documented by: Propranolol HCl (Propranolol 20 Mg Tablet) 10 mg PO BID [facility] Last Admin: 07/14/20 17:19 Dose: 10 mg Documented by: Fluticasone/Salmeterol (Fluticasone-Salmeterol 100-50 Diskus) 1 puff INHALATION BID.RESPIRATORY [facility] Last Admin: 07/15/20 08:02 Dose: 1 puff Documented by: Spironolactone (Spironolactone 25 Mg Tablet) 25 mg PO DAILY@06 [facility] Last Admin: 07/15/20 05:17 Dose: Not Given Documented by: Sucralfate (Sucralfate 1 Gm/10 Ml Oral Liq Udc) 1 gm PO AC&BEDTIME [facility] Last Admin: 07/15/20 06:11 Dose: Not Given Documented by: Zinc Gluconate (Zinc Gluconate 50 Mg Tablet) 50 mg PO DAILY [facility] Last Admin: 07/14/20 08:27 Dose: 50 mg Documented by: Vitals/I&O/Wt Last Vital Signs Temp 98.2 F 07/15/20 08:00 Pulse 75 07/15/20 08:12 Resp 18 07/15/20 08:12 BP 92/40 07/15/20 08:01 Pulse Ox 95 07/15/20 08:12 07/14/20 07/15/20 07/15/20 22:59 06:59 14:59 Intake Total 110 / 880 530 / 1410 Output Total 750 / 2350 Balance 110 / -720 -220 / -940 Physical Exam Narrative: EXAM NARRATIVE: GENERAL: The patient is alert and oriented times three. Not in any acute distress. Morbidly obese HEENT: N patient denies any fever, chills or cough. Moderate pallor, no icterus or lymphadenopathy.Oral cavity: There are no mucous membrane lesions. NECK: Trachea appears to be central. No masses noted. No JVD or thyromegaly appreciated. RESPIRATORY: Chest is symmetrical. No intercostals muscle retraction or any accessory muscle activation. There is no chest wall tenderness. Breath sounds are heard bilaterally. No rales or rhonchi heard. No evidence of any consolidation. BREASTS: Deferred. HEART: The heart sounds are normal. No S3 or S4. No significant murmurs. No pericardial rub ABDOMEN: No vessel pulsations or distention. No tenderness. No organomegaly appreciated. Bowel sounds are normally heard. : Deferred. RECTAL: Deferred. LYMPHATIC: No lymphadenopathy noted in the neck or groin. EXTREMITIES: Chronic edema both lower extremity with a significant improvement. Features of stasis dermatitis MUSCULOSKELETAL: No acute joint deformities or swelling SKIN: There are no significant rashes or ecchymosis NEUROPSYCHIATRIC: The patient is alert and oriented x3. Appears to be in a good mood. No tremors or rigidity noted. Urinary Catheter Management^: [place]: Cath Placed During This Visit: yes, but has since been removed by the nurse Reason for Continuing Indwelling Catheter: Acute Urinary Retention or Obstruction Urinary Catheter Date of Insertion: 07/08/20 Urinary Catheter Time of Insertion: 05:40 Date Urinary Catheter Removed: 07/08/20 Time Urinary Catheter Discontinued: 04:45 Data : 07/14/20 05:32 07/14/20 05:32 Other Labs: Laboratory Last Values WBC 9.6 10^3/uL (4.0-10.0) 07/14/20 05:32 RBC 3.80 10^6/uL (4.1-5.3) L 07/14/20 05:32 Hgb 9.0 g/dL (11.5-15.3) L 07/14/20 05:32 Hct 29.5 % (37.0-47.0) L 07/14/20 05:32 MCV 77.6 fL (81-99) L 07/14/20 05:32 MCH 23.7 pg (28.0-34.0) L 07/14/20 05:32 MCHC 30.5 g/dL (30.0-36.0) 07/14/20 05:32 RDW 18.4 % (12.1-15.1) H 07/14/20 05:32 Plt Count 289 10^3/cmm (130-400) 07/14/20 05:32 MPV 11.4 fL (7.4-10.4) H 07/14/20 05:32 Neut % (Auto) 53.8 % 07/14/20 05:32 Lymph % (Auto) 23.9 % 07/14/20 05:32 Castro % (Auto) 18.5 % 07/14/20 05:32 Eos % (Auto) 3.4 % 07/14/20 05:32 Baso % (Auto) 0.2 % 07/14/20 05:32 Reticulocyte % (Auto) 2.2800 % 07/12/20 05:11 Neut # (Auto) 5.18 10^3/uL (1.8-7.7) 07/14/20 05:32 Lymph # (Auto) 2.3 10^3/uL (0.8-4.8) 07/14/20 05:32 Castro # (Auto) 1.8 10^3/uL (0.2-0.9) H 07/14/20 05:32 Eos # (Auto) 0.3 10^3/uL (0.0-0.8) 07/14/20 05:32 Baso # (Auto) 0.0 10^3/uL (0.0-0.1) 07/14/20 05:32 Nucleated RBC % (auto) 0 % 07/14/20 05:32 Nucleated RBCs # 0.0 /100WBC 07/14/20 05:32 PT 14.40 SECONDS (12.1-14.9) 07/09/20 04:58 INR 1.08 (0.8-1.2) 07/09/20 04:58 D-Dimer 3.95 ug/mIFEU (0-0.59) H 07/05/20 05:21 Specimen Type Arterial 07/14/20 04:00 Sample Site Radial, left 07/14/20 04:00 ABG pH 7.50 (7.35-7.45) H 07/14/20 04:00 ABG pCO2 49.3 mmHg (35-45) H 07/14/20 04:00 ABG pO2 65.3 mmHg (80.0-100.0) L 07/14/20 04:00 ABG HCO3 38.0 mmol/L (22-26) H 07/14/20 04:00 ABG O2 Saturation 96.3 07/10/20 14:30 ABG Base Excess 13.3 mmol/L (-2.0-2.0) H 07/14/20 04:00 Mehdi Test Pos 07/14/20 04:00 A-a O2 Gradient 12.1 mmHg (5-10) H 07/10/20 14:30 Hematocrit 28.4 % (37-47) L 07/14/20 04:00 Hgb O2 Saturation 94.2 % (95-100) L 07/10/20 14:30 Carboxyhemoglobin 1.2 %THgb (0.4-20.1) 07/10/20 14:30 Methemoglobin 0.9 % (0.4-1.5) 07/10/20 14:30 Total Hemoglobin 9.7 g/dL (12-16) L 07/10/20 14:30 Sodium 136.0 mmol/L (131-143) 07/10/20 14:30 Potassium 4.2 mmol/L (3.5-5.0) 07/10/20 14:30 Glucose 125.0 mg/dL (70-115) H 07/10/20 14:30 Ionized Calcium 1.3 mmol/L (1.1-1.4) 07/10/20 14:30 O2 Delivery Device Nc 07/14/20 04:00 O2 Liters/Min 2.0 % 07/14/20 04:00 FiO2 36.0 % 07/12/20 04:45 Specimen Drawn By Vikas 07/06/20 04:00 Cna Per Diem ID Jlg 07/14/20 04:00 Sodium 136 mmol/L (136-145) 07/14/20 05:32 Potassium 3.9 mmol/L (3.5-5.1) 07/14/20 05:32 Chloride 94 mmol/L (98-107) L 07/14/20 05:32 Carbon Dioxide 37 mmol/L (22-29) H 07/14/20 05:32 Anion Gap 8.9 (5-19) 07/14/20 05:32 BUN 35 mg/dL (6-20) H 07/14/20 05:32 Creatinine 0.9 mg/dL (0.5-0.9) 07/14/20 05:32 GFR Calculation 65.5 mL/min (90-130) L 07/14/20 05:32 Glucose 81 mg/dL (65-115) 07/14/20 05:32 Calculated Osmolality 289 mOsm/kg (285-295) 07/14/20 05:32 Lactate 0.8 mmol/L (0.5-2.2) 07/11/20 04:30 Calcium 9.5 mg/dL (8.5-10.5) 07/14/20 05:32 Phosphorus 1.7 mg/dL (2.5-4.5) L 07/14/20 05:32 Magnesium 1.9 mg/dL (1.7-2.3) 07/14/20 05:32 Iron 20 ug/dL (37-145) L 07/12/20 05:11 TIBC 345 mcg/dl 07/12/20 05:11 % Saturation 5.7 % (20-50) L 07/12/20 05:11 Unsat Iron Binding 325 ug/dL (112-347) 07/12/20 05:11 Ferritin 68 ng/mL (15-150) 07/12/20 05:11 Total Bilirubin 0.6 mg/dL (0.15-1.2) 07/14/20 05:32 AST 68 U/L (0-32) H 07/14/20 05:32 ALT 52 U/L (0-33) H 07/14/20 05:32 Alkaline Phosphatase 354 IU/L (35-105) H 07/14/20 05:32 Creatine Kinase 22 U/L (26-192) L 07/11/20 04:30 Creatine Kinase Cancelled 07/11/20 04:30 Troponin T Baseline 16 ng/L (0-10) H 07/02/20 22:43 Troponin T 120 Minute 14.30 ng/L (0-10) H 07/03/20 01:20 Delta Troponin T -1.70 ABS# (0-10) L 07/03/20 01:20 C-Reactive Protein 16.1 mg/L (0.0-4.9) H 07/11/20 04:30 NT-Pro-B Natriuret Pep 746 pg/mL (0-125) H 07/14/20 05:32 Total Protein 6.0 g/dL (6.6-8.7) L 07/14/20 05:32 Albumin 2.8 g/dL (3.5-5.2) L 07/14/20 05:32 Globulin 3.2 g/dL (1.3-4.6) 07/14/20 05:32 Lipase 16 U/L (13-60) 07/02/20 22:43 Vitamin B12 704 pg/mL (232-1245) 07/12/20 05:11 Folate 7.3 ng/mL (4.8-37.3) 07/12/20 05:11 Procalcitonin 0.53 ng/mL (0-0.5) H 07/14/20 05:32 Vancomycin Trough 26.3 ug/mL (10-15) H* 07/08/20 08:10 Nasal/Oral COVID-19 PCR Not detected 07/05/20 16:10 SARS-CoV-2 Ag (Rapid) Negative (Negative) 07/03/20 00:43 [facility] Test Reference See comment 07/12/20 11:10 A&P Assessment and plan (1) Acute on chronic diastolic (congestive) heart failure: Patient seems to have recurrent decompensated diastolic heart failure. Most likely the aortic valve stenosis might be a contributing factor. Her sleep apnea, anemia and possible pneumonia are contributing factors as well. Status: Acute (2) Positive blood culture: In view of the anemia, positive blood culture and aortic valve stenosis, possibility of endocarditis is a consideration. A LAMINE would be appropriate. This was discussed with the patient in detail which she understood well and consented to proceed. Status: Acute (3) Anemia: Management as per the primary. Status: Acute Qualifiers: Anemia type: iron deficiency Iron deficiency anemia type: unspecified iron deficiency Qualified Code(s): D50.9 - Iron deficiency anemia, unspecified (4) Aortic valve stenosis: Clinically the patient seems to have severe aortic valve stenosis. We may consider doing a cardiac catheterization, to further evaluate the valve status as well as the coronary status. She apparently had a normal coronary arteries by cardiac catheterization in 2012. Since then she had a few myocardial perfusion imaging. The most recent one, revealed elevated transient ischemic dilatation ratio. Otherwise these tests were unremarkable. In view of the episodes of recurrent diastolic heart failure, patient may benefit from aortic valve intervention. Status: Acute Qualifiers: Cardiac valve disease etiology: nonrheumatic Qualified Code(s): I35.0 - Nonrheumatic aortic (valve) stenosis (5) Hyperlipidemia: Continue on the current medications. Status: Acute Qualifiers: Hyperlipidemia type: mixed hyperlipidemia Qualified Code(s): E78.2 - Mixed hyperlipidemia (6) Hypertension: Currently normotensive. Continue on the current medications. Status: Acute Qualifiers: Hypertension type: essential hypertension Qualified Code(s): I10 - Essential (primary) hypertension (7) Atypical chest pain: Patient has chronic atypical chest pains, currently stable. Status: Acute Additional A&P Information Other problems are as outlined before. Sleep apnea Anemia, has some drop in the hemoglobin Renal insufficiency, seems to be improving Possible pneumonia Osteoarthritis Discussed with Dr. Little. Dr. Little also suggested for a LAMINE to rule out endocarditis. Patient may be kept n.p.o. after midnight. We will schedule for the procedure in the morning. Based on the results, further recommendations will be made Attestations Medical Necessity Statement*: Patient requires continued hospital stay for close monitoring and further management Coding Level of Care Code Acute Reading Efficiency Course Director for Chg Fwd Diagnoses Acute on chronic diastolic (congestive) heart failure I50.33 Positive blood culture R78.81 Anemia D50.9 Anemia type: iron deficiency Iron deficiency anemia type: unspecified iron deficiency Aortic valve stenosis I35.0 Cardiac valve disease etiology: nonrheumatic Hyperlipidemia E78.2 Hyperlipidemia type: mixed hyperlipidemia Hypertension I10 Hypertension type: essential hypertension Atypical chest pain R07.89
[2020-07-15] MEDS: sodium chloride 0.9% 1,000 ML 30 ML IV (09:14)
--- NOTE | 2020-07-15 09:46 | P.ANESASSM_ITS ---
Pre-Anesthetic Assessment Pre-Anesthetic Assessment: Height/Weight: Height 1.68 m Weight 165.561 kg Temp Pulse Resp BP Pulse Ox 97.3 F L 75 18 118/47 98 07/15/20 09:02 07/15/20 09:02 07/15/20 09:02 07/15/20 09:02 07/15/20 09:02 Preop Diagnosis: anemia Proposed Procedure: Operation Date: 07/15/20 10:00 Proposed Procedures p EGD(Not Applicable) - Kavon Briseno MD s Colonoscopy(Not Applicable) - Kavon Briseno MD Familial anesthetic complications: None Was Beta Conchis taken within 24 hours: N/A Last intake: npo > 8 hrs Social: Social History: Tobacco and No alcohol Exam: Pre-Anes Outpt Exam: alert, oriented x 3, clear to auscultation bilaterally and regular rate & rhythm Additional Exam Findings (including area of procedure): diminished Airway: Cervical ROM: WNL MP: 3 Dentition: Other (no teeth) Pulmonary: Pulmonary: Asthma, COPD, ROGEL and Sleep apnea Comments: hx pnemonia last month CV/HEM: CV/HEM: Arrythmia, CHF and HTN Comments: Mod - severe GI: GI: GERD Metabolic: Metabolic: Hyperlipidemia and Morbid obesity Anesthetic Plan: ASA status: 4 Anesthesia: MAC Risk of > 500 ml blood loss (7ml/kg in children): No Meds/Allergies Current Medications: Current Medications Generic Name Dose Route Start Last Admin Trade Name Freq PRN Reason Stop Dose Admin Acetaminophen 650 mg 07/13/20 04:07 07/14/20 16:24 Acetaminophen 32 5 Mg Tablet PO 650 mg Q6H PRN Administration MILD PAIN Acetazolamide 500 mg 07/10/20 21:00 07/11/20 20:09 Acetazolamide 25 0 Mg Tablet PO 500 mg Q12H VALDO Administration Albuterol Sulfate 2.5 mg 07/06/20 11:13 07/13/20 09:05 Albuterol 2.5 Mg /0.5 Ml Neb INHALATION 2.5 mg Q4H.RESPIRATORY P RN Administration SHORTNESS OF NIKKI TH Apixaban 5 mg 07/03/20 06:00 07/05/20 07:15 Apixaban 5 Mg Ta blet PO 5 mg BID@ VALDO Administration Aspirin 81 mg 07/03/20 10:15 07/14/20 08:27 Aspirin 81 Mg Ec Tablet PO 81 mg DAILY VALDO Administration Atorvastatin Calci um 20 mg 07/03/20 22:00 07/14/20 22:33 Atorvastatin 40 Mg Tablet PO 20 mg DAILY@22 VALDO Administration Bumetanide 1 mg 07/12/20 08:30 07/14/20 08:30 Bumetanide 0.25 Mg/Ml Sdv 4 Ml IV 1 mg Q24H VALDO Administration Bupropion HCl 150 mg 07/03/20 06:00 07/15/20 05:17 Bupropion Sr (12 Hr) 150 Mg Tablet PO Not Given BID@, VALDO Docusate Sodium 100 mg 07/03/20 05:12 07/13/20 14:53 Docusate Sodium 100 Mg Capsule PO 100 mg DAILY PRN Administration Constipation Duloxetine HCl 60 mg 07/03/20 06:00 07/15/20 05:17 Duloxetine 60 Mg Capsule PO Not Given DAILY@06 [facility] Enoxaparin Sodium 30 mg 07/05/20 19:00 07/12/20 06:18 Enoxaparin 30 Mg /0.3 Ml Syringe SUBCUT 30 mg Q12H VALDO Administration Enoxaparin Sodium 120 mg 07/05/20 19:00 07/12/20 06:18 Enoxaparin 120 M g/0.8 Ml Syringe SUBCUT 120 mg Q12H VALDO Administration Ferrous Sulfate 325 mg 07/12/20 18:00 07/14/20 17:19 Ferrous Sulfate Ec 325 Mg Tablet PO 325 mg BIDWM VALDO Administration Gabapentin 300 mg 07/03/20 22:00 07/14/20 22:32 Gabapentin 300 M g Capsule PO 300 mg BEDTIME@ [facility] Administration Hydroxyzine HCl 10 mg 07/07/20 17:13 07/14/20 05:57 Hydroxyzine 10 M g Tablet PO 10 mg Q8H PRN Administration ANXIETY Levothyroxine Sodi um 100 mcg 07/03/20 06:00 07/15/20 05:17 Levothyroxine 10 0 Mcg Tablet PO Not Given DAILY@06 [facility] Losartan Potassium 25 mg 07/03/20 09:00 07/14/20 08:27 Losartan 50 Mg T ablet PO 25 mg DAILY VALDO Administration Metolazone 10 mg 07/08/20 09:00 07/12/20 08:01 Metolazone 5 Mg Tablet PO 10 mg DAILY VALDO Administration Midodrine 5 mg 07/08/20 13:00 07/15/20 05:17 Midodrine 5 Mg T ablet PO Not Given Q8H [facility] Ondansetron HCl 4 mg 07/07/20 09:29 07/08/20 08:37 Ondansetron 2 Mg /Ml Sdv 2 Ml IVP 4 mg Q4H PRN Administration NAUSEA AND VOMITI NG Pantoprazole Sodiu m 40 mg 07/03/20 06:00 07/15/20 05:[address] 40 Mg Tablet PO Not Given BID@,22 [facility] Potassium Chloride 40 meq 07/06/20 09:05 07/14/20 22:32 Potassium Chlori de Er 20 Meq Table t PO 40 meq Q12H VALDO Administration Propranolol HCl 10 mg 07/03/20 18:00 07/14/20 17:19 Propranolol 20 M g Tablet PO 10 mg BID VALDO Administration Fluticasone/Salmet alfonso 1 puff 07/06/20 20:00 07/15/20 08:02 Fluticasone-Salm eterol 100-50 Disk us INHALATION 1 puff BID.RESPIRATORY S [facility] Administration Spironolactone 25 mg 07/03/20 06:00 07/15/20 05:17 Spironolactone 2 5 Mg Tablet PO Not Given DAILY@06 [facility] Sucralfate 1 gm 07/12/20 17:00 07/15/20 06:11 Sucralfate 1 Gm/ 10 Ml Oral Liq Udc PO Not Given AC&BEDTIME [facility] Zinc Gluconate 50 mg 07/06/20 11:45 07/14/20 08:27 Zinc Gluconate 5 0 Mg Tablet PO 50 mg DAILY VALDO Administration Additional Medication Information: Current Medications Acetaminophen (Acetaminophen 325 Mg Tablet) 650 mg PO Q6H PRN PRN Reason: MILD PAIN Last Admin: 07/14/20 16:24 Dose: 650 mg Documented by: Acetazolamide (Acetazolamide 250 Mg Tablet) 500 mg PO Q12H VALDO Last Admin: 07/11/20 20:09 Dose: 500 mg Documented by: Albuterol Sulfate (Albuterol 2.5 Mg/0.5 Ml Neb) 2.5 mg INHALATION Q4H.RESPIRATORY PRN PRN Reason: SHORTNESS OF BREATH Last Admin: 07/13/20 09:05 Dose: 2.5 mg Documented by: Albuterol/Ipratropium (Ipratropium-Albuterol 3 Ml Neb) 3 ml INHALATION Q6H.RESPIRATORY PRN PRN Reason: SHORTNESS OF BREATH Apixaban (Apixaban 5 Mg Tablet) 5 mg PO BID@ [facility] Last Admin: 07/05/20 07:15 Dose: 5 mg Documented by: Aspirin (Aspirin 81 Mg Ec Tablet) 81 mg PO DAILY [facility] Last Admin: 07/14/20 08:27 Dose: 81 mg Documented by: Atorvastatin Calcium (Atorvastatin 40 Mg Tablet) 20 mg PO DAILY@ [facility] Last Admin: 07/14/20 22:33 Dose: 20 mg Documented by: Bumetanide (Bumetanide 0.25 Mg/Ml Sdv 4 Ml) 1 mg IV Q24H [facility] Last Admin: 07/14/20 08:30 Dose: 1 mg Documented by: Bupropion HCl (Bupropion Sr (12 Hr) 150 Mg Tablet) 150 mg PO BID@ [facility] Last Admin: 07/15/20 05:17 Dose: Not Given Documented by: Docusate Sodium (Docusate Sodium 100 Mg Capsule) 100 mg PO DAILY PRN PRN Reason: Constipation Last Admin: 07/13/20 14:53 Dose: 100 mg Documented by: Duloxetine HCl (Duloxetine 60 Mg Capsule) 60 mg PO DAILY@ [facility] Last Admin: 07/15/20 05:17 Dose: Not Given Documented by: Enoxaparin Sodium (Enoxaparin 30 Mg/0.3 Ml Syringe) 30 mg SUBCUT Q12H [facility] Last Admin: 07/12/20 06:18 Dose: 30 mg Documented by: Enoxaparin Sodium (Enoxaparin 120 Mg/0.8 Ml Syringe) 120 mg SUBCUT Q12H [facility] Last Admin: 07/12/20 06:18 Dose: 120 mg Documented by: Ferrous Sulfate (Ferrous Sulfate Ec 325 Mg Tablet) 325 mg PO BIDWM [facility] Last Admin: 07/14/20 17:19 Dose: 325 mg Documented by: Gabapentin (Gabapentin 300 Mg Capsule) 300 mg PO BEDTIME@ [facility] Last Admin: 07/14/20 22:32 Dose: 300 mg Documented by: Hydroxyzine HCl (Hydroxyzine 10 Mg Tablet) 10 mg PO Q8H PRN PRN Reason: ANXIETY Last Admin: 07/14/20 05:57 Dose: 10 mg Documented by: Sodium Chloride (Sodium Chloride 0.9%) 1,000 mls @ 30 mls/hr IV .Q24H ONE Stop: 07/15/20 09:12 Last Admin: 07/14/20 10:41 Dose: 30 mls/hr Documented by: Potassium Phosphate 30 mmol/ (Sodium Chloride) 110 mls @ 25 mls/hr IV ONCE ONE Stop: 07/15/20 12:43 Vancomycin HCl / Sodium (Chloride) 250 mls @ 0 mls/hr [id number] PROTOCOL [facility]; Protocol Levofloxacin/Dextrose (Levaquin-D5w) 750 mg in 150 mls @ 100 mls/hr IV Q24H [facility]; Protocol Levothyroxine Sodium (Levothyroxine 100 Mcg Tablet) 100 mcg PO DAILY@06 [facility] Last Admin: 07/15/20 05:17 Dose: Not Given Documented by: Losartan Potassium (Losartan 50 Mg Tablet) 25 mg PO DAILY [facility] Last Admin: 07/14/20 08:27 Dose: 25 mg Documented by: Metolazone (Metolazone 5 Mg Tablet) 10 mg PO DAILY [facility] Last Admin: 07/12/20 08:01 Dose: 10 mg Documented by: Midodrine (Midodrine 5 Mg Tablet) 5 mg PO Q8H [facility] Last Admin: 07/15/20 05:17 Dose: Not Given Documented by: Ondansetron HCl (Ondansetron 2 Mg/Ml Sdv 2 Ml) 4 mg IVP Q4H PRN PRN Reason: NAUSEA AND VOMITING Last Admin: 07/08/20 08:37 Dose: 4 mg Documented by: Pantoprazole Sodium (Pantoprazole Dr 40 Mg Tablet) 40 mg PO BID@ [facility] Last Admin: 07/15/20 05:17 Dose: Not Given Documented by: Potassium Chloride (Potassium Chloride Er 20 Meq Tablet) 40 meq PO Q12H [facility] Last Admin: 07/14/20 22:32 Dose: 40 meq Documented by: Propranolol HCl (Propranolol 20 Mg Tablet) 10 mg PO BID [facility] Last Admin: 07/14/20 17:19 Dose: 10 mg Documented by: Fluticasone/Salmeterol (Fluticasone-Salmeterol 100-50 Diskus) 1 puff INHALATION BID.RESPIRATORY [facility] Last Admin: 07/15/20 08:02 Dose: 1 puff Documented by: Spironolactone (Spironolactone 25 Mg Tablet) 25 mg PO DAILY@06 [facility] Last Admin: 07/15/20 05:17 Dose: Not Given Documented by: Sucralfate (Sucralfate 1 Gm/10 Ml Oral Liq Udc) 1 gm PO AC&BEDTIME [facility] Last Admin: 07/15/20 06:11 Dose: Not Given Documented by: Zinc Gluconate (Zinc Gluconate 50 Mg Tablet) 50 mg PO DAILY [facility] Last Admin: 07/14/20 08:27 Dose: 50 mg Documented by: PFSH Anesthesia PFS: Medical History Abnormal angiogram Aortic valve stenosis Chronic back pain COPD (chronic obstructive pulmonary disease) Generalized anxiety disorder Hyperlipidemia Hypertension Hypothyroidism Major depressive disorder, recurrent, moderate Obstructive pyelonephritis Osteoarthritis Sleep apnea Ureteral calculus, right Surgical History H/O cardiac catheterization H/O cystoscopy H/O lateral meniscus repair of left knee S/P thyroidectomy Family History Father Hypertension Hyperlipidemia Cancer Brother Hypertension CAD (coronary artery disease) Hyperlipidemia Sister Hypertension Cancer Grandfather Hypertension Diabetes Grandmother Hypertension CAD (coronary artery disease) Cancer Diabetes Mother CAD (coronary artery disease) Hypertension Hyperlipidemia Cancer Denies family history of Anesthesia complication Social History Smoking and tobacco status: current every day smoker cigarettes Years c igarettes smoked: 34 Quit status (tobacco): considering quitting Smoking risk assessment/counseling performed?: Yes Alcohol intake: current Alcohol intake frequency: holidays/special occasions only Desire information about alcohol rehabilitation?: No Counseling given: No Marital status: Single Current gender identity: Female Data Anesthesia CBC & Chem 7: 07/14/20 05:32 07/14/20 05:32 Other Labs: Laboratory Results - last 48 hr 07/12/20 07/14/20 07/14/20 11:10 04:00 05:32 WBC 9.6 RBC 3.80 L Hgb 9.0 L Hct 29.5 L MCV 77.6 L MCH 23.7 L MCHC 30.5 RDW 18.4 H Plt Count 289 MPV 11.4 H Neut % (Auto) 53.8 Lymph % (Auto) 23.9 [place] % (Auto) 18.5 Eos % (Auto) 3.4 Baso % (Auto) 0.2 Neut # (Auto) 5.18 Lymph # (Auto) 2.3 [place] # (Auto) 1.8 H Eos # (Auto) 0.3 Baso # (Auto) 0.0 Nucleated RBC % (auto) 0 Nucleated RBCs # 0.0 Specimen Type Arterial Sample Site Radial, left ABG pH 7.50 H ABG pCO2 49.3 H ABG pO2 65.3 L ABG HCO3 38.0 H ABG Base Excess 13.3 H Mehdi Test Pos Hematocrit 28.4 L O2 Delivery Device Nc O2 Liters/Min 2.0 Seasonal [employer] ID Jlg Sodium Potassium Chloride Carbon Dioxide Anion Gap BUN Creatinine GFR Calculation Glucose Calculated Osmolality Calcium Phosphorus Magnesium Total Bilirubin AST ALT Alkaline Phosphatase NT-Pro-B Natriuret Pep Total Protein Albumin Globulin Procalcitonin Misc Test Reference See comment 07/14/20 07/14/20 05:32 05:32 WBC RBC Hgb Hct MCV MCH MCHC RDW Plt Count MPV Neut % (Auto) Lymph % (Auto) [place] % (Auto) Eos % (Auto) Baso % (Auto) Neut # (Auto) Lymph # (Auto) [place] # (Auto) Eos # (Auto) Baso # (Auto) Nucleated RBC % (auto) Nucleated RBCs # Specimen Type Sample Site ABG pH ABG pCO2 ABG pO2 ABG HCO3 ABG Base Excess Mehdi Test Hematocrit O2 Delivery Device O2 Liters/Min [employer]ler ID Sodium 136 Potassium 3.9 Chloride 94 L Carbon Dioxide 37 H Anion Gap 8.9 BUN 35 H Creatinine 0.9 GFR Calculation 65.5 L Glucose 81 Calculated Osmolality 289 Calcium 9.5 Phosphorus 1.7 L Magnesium 1.9 Total Bilirubin 0.6 AST 68 H ALT 52 H Alkaline Phosphatase 354 H NT-Pro-B Natriuret Pep 746 H Total Protein 6.0 L Albumin 2.8 L Globulin 3.2 Procalcitonin 0.53 H Misc Test Reference Cardiac Studies: No Data to Display
--- NOTE | 2020-07-15 09:57 | P.PN_ITS ---
Subjective Subjective: Interval history: No issues overnight, denies abdominal pain Vitals/I&O/Wt Last Vital Signs Temp 97.3 F L 07/15/20 09:02 Pulse 75 07/15/20 09:02 Resp 18 07/15/20 09:02 BP 118/47 07/15/20 09:02 Pulse Ox 98 07/15/20 09:02 07/14/20 07/15/20 07/15/20 22:59 06:59 14:59 Intake Total 110 / 1410 530 / 1410 676.5 / 676.5 Output Total 750 / 2350 Balance 110 / -940 -220 / -940 676.5 / 676.5 Physical Exam Narrative: EXAM NARRATIVE: Abdomen: soft Urinary Catheter Management^: [place]: Cath Placed During This Visit: yes, but has since been removed by the nurse Reason for Continuing Indwelling Catheter: Acute Urinary Retention or Obstruction Urinary Catheter Date of Insertion: 07/08/20 Urinary Catheter Time of Insertion: 05:40 Date Urinary Catheter Removed: 07/08/20 Time Urinary Catheter Discontinued: 04:45 Data : 07/14/20 05:32 07/14/20 05:32 A&P Assessment and plan (1) Anemia: Plan for EGD/colonoscopy under MAC Procedure, risks and benefits have been discussed with the patient Status: Acute Qualifiers: Anemia type: iron deficiency Iron deficiency anemia type: unspecified iron deficiency Qualified Code(s): D50.9 - Iron deficiency anemia, unspecified Attestations Medical Necessity Statement*: anemia Coding Level of Care Code Acute [employer] for [facility] Fwd Diagnoses Anemia D50.9 Anemia type: iron deficiency Iron deficiency anemia type: unspecified iron deficiency
--- NOTE | 2020-07-15 14:06 | ANE.PACU2 ---
Inpatient post-anesthesia follow up: Airway intact: Yes Vital signs: Temperature 97.5 F Pulse Rate [Monito r] 94 Pulse Rate 66 Respiratory Rate 18 Blood Pressure [Ri ght Arm] 165/85 Blood Pressure 99/55 Pulse Oximetry 1 Oxygen Delivery Me thod Nasal Cannula Oxygen Flow Rate 1 Fraction of Inspir ed Oxygen 36 Hydration adequate: Yes Nausea and vomiting: No Pain level: 2 Mental status: Baseline
[2020-07-15] MEDS: ferrous sulfate EC 325 mg Tablet PO (18:23)
[2020-07-15] MEDS: midodrine 5 mg TABLET PO ×2 (18:23→21:39)
[2020-07-15] MEDS: sucralfate 1 gm/10 mL Oral Liq UDC PO ×2 (18:23→21:42)
[2020-07-15] MEDS: propranolol 20 mg Tablet 10 MG PO (18:24)
[2020-07-15] MEDS: pantoprazole DR 40 mg Tablet PO (21:39)
[2020-07-15] MEDS: atorvastatin 40 mg Tablet 20 MG PO (21:39)
[2020-07-15] MEDS: buPROPion SR (12 HR) 150 mg Tablet PO (21:39)
[2020-07-15] MEDS: potassium chloride ER 20 mEq Tablet 40 MEQ PO (21:39)
[2020-07-15] MEDS: acetaZOLAMIDE 250 mg Tablet 500 MG PO (21:39)
[2020-07-15] MEDS: gabapentin 300 mg Capsule PO (21:39)
[2020-07-16] VITALS (13 sets, daily range): BP systolic 89–119; BP diastolic 40–67; PULSE 62–100; RESP 16–20; TEMP 36.4–37.1; O2SAT 93–100
[2020-07-16] MEDS: acetaminophen 325 mg Tablet 650 MG PO (01:21)
[2020-07-16] MEDS: midodrine 5 mg TABLET PO ×2 (05:17→13:39)
[2020-07-16] MEDS: duloxetine 60 mg Capsule PO (05:17)
[2020-07-16] MEDS: buPROPion SR (12 HR) 150 mg Tablet PO (05:17)
[2020-07-16] MEDS: levothyroxine 100 mcg Tablet PO (05:17)
[2020-07-16] MEDS: spironolactone 25 mg Tablet PO (05:18)
[2020-07-16] MEDS: pantoprazole DR 40 mg Tablet PO (05:19)
[2020-07-16 08:20] LABS: Basophils % 0.2 %; Eosinophils # 0.3 10^3/uL (0.0-0.8); Eosinophils % 3.1 %; Hematocrit 27.7 % (37.0-47.0); Hemoglobin 8.5 g/dL (11.5-15.3); Lymphocytes # 1.7 10^3/uL (0.8-4.8); Lymphocytes % 17.2 %; Mean Corpuscular HGB Conc 30.7 g/dL (30.0-36.0); Mean Corpuscular Hemoglobin 24.5 pg (28.0-34.0); Mean Corpuscular Volume 79.8 fL (81-99); Monocytes # 1.9 10^3/uL (0.2-0.9); Monocytes % 19.1 %; Neutrophils # 5.85 10^3/uL (1.8-7.7); Neutrophils % 60.2 %; Nucleated Red Blood Cells % 0 %; Platelet Count 260 10^3/cmm (130-400); Red Blood Count 3.47 10^6/uL (4.1-5.3); Red Cell Distribution Width 19.2 % (12.1-15.1); White Blood Count 9.7 10^3/uL (4.0-10.0)
--- NOTE | 2020-07-16 08:39 | P.PN_ITS ---
Subjective Subjective: Interval history: Patient is feeling okay. She has no chest pain or palpitations. No fever or chills. No cough. She seems to be getting up and ambulating around inside the room with a walker. No new symptoms. Medications: Reviewed: Yes Medication Review Details: Current Medications Acetaminophen (Acetaminophen 325 Mg Tablet) 650 mg PO Q6H PRN PRN Reason: MILD PAIN Last Admin: 07/16/20 01:21 Dose: 650 mg Documented by: Acetazolamide (Acetazolamide 250 Mg Tablet) 500 mg PO Q12H [facility] Last Admin: 07/15/20 21:39 Dose: 500 mg Documented by: Albuterol Sulfate (Albuterol 2.5 Mg/0.5 Ml Neb) 2.5 mg INHALATION Q4H.RESPIRATORY PRN PRN Reason: SHORTNESS OF BREATH Last Admin: 07/13/20 09:05 Dose: 2.5 mg Documented by: Albuterol/Ipratropium (Ipratropium-Albuterol 3 Ml Neb) 3 ml INHALATION Q6H.RESPIRATORY PRN PRN Reason: SHORTNESS OF BREATH Apixaban (Apixaban 5 Mg Tablet) 5 mg PO BID@ [facility] Last Admin: 07/05/20 07:15 Dose: 5 mg Documented by: Aspirin (Aspirin 81 Mg Ec Tablet) 81 mg PO DAILY [facility] Last Admin: 07/14/20 08:27 Dose: 81 mg Documented by: Atorvastatin Calcium (Atorvastatin 40 Mg Tablet) 20 mg PO DAILY@ [facility] Last Admin: 07/15/20 21:39 Dose: 20 mg Documented by: Bumetanide (Bumetanide 0.25 Mg/Ml Sdv 4 Ml) 1 mg IV Q24H [facility] Last Admin: 07/14/20 08:30 Dose: 1 mg Documented by: Bupropion HCl (Bupropion Sr (12 Hr) 150 Mg Tablet) 150 mg PO BID@ [facility] Last Admin: 07/16/20 05:17 Dose: 150 mg Documented by: Docusate Sodium (Docusate Sodium 100 Mg Capsule) 100 mg PO DAILY PRN PRN Reason: Constipation Last Admin: 07/13/20 14:53 Dose: 100 mg Documented by: Duloxetine HCl (Duloxetine 60 Mg Capsule) 60 mg PO DAILY@ [facility] Last Admin: 07/16/20 05:17 Dose: 60 mg Documented by: Enoxaparin Sodium (Enoxaparin 30 Mg/0.3 Ml Syringe) 30 mg SUBCUT Q12H [facility] Last Admin: 07/12/20 06:18 Dose: 30 mg Documented by: Enoxaparin Sodium (Enoxaparin 120 Mg/0.8 Ml Syringe) 120 mg SUBCUT Q12H [facility] Last Admin: 07/12/20 06:18 Dose: 120 mg Documented by: Ferrous Sulfate (Ferrous Sulfate Ec 325 Mg Tablet) 325 mg PO BIDWM [facility] Last Admin: 07/15/20 18:27 Dose: Not Given Documented by: Gabapentin (Gabapentin 300 Mg Capsule) 300 mg PO BEDTIME@ [facility] Last Admin: 07/15/20 21:39 Dose: 300 mg Documented by: Hydroxyzine HCl (Hydroxyzine 10 Mg Tablet) 10 mg PO Q8H PRN PRN Reason: ANXIETY Last Admin: 07/14/20 05:57 Dose: 10 mg Documented by: Levofloxacin/Dextrose (Levaquin-D5w) 750 mg in 150 mls @ 100 mls/hr IV Q24H [facility]; Protocol Vancomycin HCl 2,000 mg/ (Sodium Chloride) 500 mls @ 250 mls/hr IV Q24H [facility] Last Infusion: 07/15/20 15:53 Dose: Infused Documented by: Levothyroxine Sodium (Levothyroxine 100 Mcg Tablet) 100 mcg PO DAILY@06 [facility] Last Admin: 07/16/20 05:17 Dose: 100 mcg Documented by: Losartan Potassium (Losartan 50 Mg Tablet) 25 mg PO DAILY [facility] Last Admin: 07/14/20 08:27 Dose: 25 mg Documented by: Metolazone (Metolazone 5 Mg Tablet) 10 mg PO DAILY [facility] Last Admin: 07/12/20 08:01 Dose: 10 mg Documented by: Midodrine (Midodrine 5 Mg Tablet) 5 mg PO Q8H [facility] Last Admin: 07/16/20 05:17 Dose: 5 mg Documented by: Ondansetron HCl (Ondansetron 2 Mg/Ml Sdv 2 Ml) 4 mg IVP Q4H PRN PRN Reason: NAUSEA AND VOMITING Last Admin: 07/08/20 08:37 Dose: 4 mg Documented by: Pantoprazole Sodium (Pantoprazole Dr 40 Mg Tablet) 40 mg PO BID@ [facility] Last Admin: 07/16/20 05:19 Dose: 40 mg Documented by: Potassium Chloride (Potassium Chloride Er 20 Meq Tablet) 40 meq PO Q12H [facility] Last Admin: 07/15/20 21:39 Dose: 40 meq Documented by: Propranolol HCl (Propranolol 20 Mg Tablet) 10 mg PO BID [facility] Last Admin: 07/15/20 18:24 Dose: 10 mg Documented by: Fluticasone/Salmeterol (Fluticasone-Salmeterol 100-50 Diskus) 1 puff INHALATION BID.RESPIRATORY [facility] Last Admin: 07/15/20 20:14 Dose: Not Given Documented by: Spironolactone (Spironolactone 25 Mg Tablet) 25 mg PO DAILY@06 [facility] Last Admin: 07/16/20 05:18 Dose: 25 mg Documented by: Sucralfate (Sucralfate 1 Gm/10 Ml Oral Liq Udc) 1 gm PO AC&BEDTIME [facility] Last Admin: 07/15/20 21:42 Dose: 1 gm Documented by: Zinc Gluconate (Zinc Gluconate 50 Mg Tablet) 50 mg PO DAILY [facility] Last Admin: 07/14/20 08:27 Dose: 50 mg Documented by: Vitals/I&O/Wt Last Vital Signs Temp 98.4 F 07/16/20 08:00 Pulse 75 07/16/20 08:00 Resp 17 07/16/20 08:00 BP 111/64 07/16/20 08:00 Pulse Ox 97 07/16/20 08:00 07/15/20 07/16/20 07/16/20 22:59 06:59 14:59 Intake Total 740 / 1816.5 Output Total 800 / 800 Balance 740 / 1816.5 -800 / 1016.5 Physical Exam Narrative: EXAM NARRATIVE: GENERAL: The patient is alert and oriented times three. Not in any acute distress. Morbidly obese HEENT: N patient denies any fever, chills or cough. Moderate pallor, no icterus or lymphadenopathy.Oral cavity: There are no mucous membrane lesions. NECK: Trachea appears to be central. No masses noted. No JVD or thyromegaly appreciated. RESPIRATORY: Chest is symmetrical. No intercostals muscle retraction or any accessory muscle activation. There is no chest wall tenderness. Breath sounds are heard bilaterally. No rales or rhonchi heard. No evidence of any consolidation. BREASTS: Deferred. HEART: The heart sounds are normal. No S3 or S4. Ejection systolic murmur of grade 4/6 in the aortic area. No diastolic murmurs ABDOMEN: No vessel pulsations or distention. No tenderness. No organomegaly appreciated. Bowel sounds are normally heard. : Deferred. RECTAL: Deferred. LYMPHATIC: No lymphadenopathy noted in the neck or groin. EXTREMITIES: Chronic edema both lower extremity with a significant improvement. Features of stasis dermatitis MUSCULOSKELETAL: No acute joint deformities or swelling SKIN: There are no significant rashes or ecchymosis NEUROPSYCHIATRIC: The patient is alert and oriented x3. Appears to be in a good mood. No tremors or rigidity noted. Urinary Catheter Management^: [place]: Cath Placed During This Visit: yes, but has since been removed by the nurse Reason for Continuing Indwelling Catheter: Acute Urinary Retention or Obstruct ion Urinary Catheter Date of Insertion: 07/08/20 Urinary Catheter Time of Insertion: 05:40 Date Urinary Catheter Removed: 07/08/20 Time Urinary Catheter Discontinued: 04:45 Data : 07/16/20 08:10 07/16/20 08:10 Other Labs: Laboratory Last Values WBC 9.7 10^3/uL (4.0-10.0) 07/16/20 08:10 RBC 3.47 10^6/uL (4.1-5.3) L 07/16/20 08:10 Hgb 8.5 g/dL (11.5-15.3) L 07/16/20 08:10 Hct 27.7 % (37.0-47.0) L 07/16/20 08:10 MCV 79.8 fL (81-99) L 07/16/20 08:10 MCH 24.5 pg (28.0-34.0) L 07/16/20 08:10 MCHC 30.7 g/dL (30.0-36.0) 07/16/20 08:10 RDW 19.2 % (12.1-15.1) H 07/16/20 08:10 Plt Count 260 10^3/cmm (130-400) 07/16/20 08:10 MPV 11.0 fL (7.4-10.4) H 07/16/20 08:10 Neut % (Auto) 60.2 % 07/16/20 08:10 Lymph % (Auto) 17.2 % 07/16/20 08:10 [place] % (Auto) 19.1 % 07/16/20 08:10 Eos % (Auto) 3.1 % 07/16/20 08:10 Baso % (Auto) 0.2 % 07/16/20 08:10 Reticulocyte % (Auto) 2.2800 % 07/12/20 05:11 Neut # (Auto) 5.85 10^3/uL (1.8-7.7) 07/16/20 08:10 Lymph # (Auto) 1.7 10^3/uL (0.8-4.8) 07/16/20 08:10 [place] # (Auto) 1.9 10^3/uL (0.2-0.9) H 07/16/20 08:10 Eos # (Auto) 0.3 10^3/uL (0.0-0.8) 07/16/20 08:10 Baso # (Auto) 0.0 10^3/uL (0.0-0.1) 07/16/20 08:10 Nucleated RBC % (auto) 0 % 07/16/20 08:10 Nucleated RBCs # 0.0 /100WBC 07/16/20 08:10 PT 14.40 SECONDS (12.1-14.9) 07/09/20 04:58 INR 1.08 (0.8-1.2) 07/09/20 04:58 D-Dimer 3.95 ug/mIFEU (0-0.59) H 07/05/20 05:21 Specimen Type Arterial 07/14/20 04:00 Sample Site Radial, left 07/14/20 04:00 ABG pH 7.50 (7.35-7.45) H 07/14/20 04:00 ABG pCO2 49.3 mmHg (35-45) H 07/14/20 04:00 ABG pO2 65.3 mmHg (80.0-100.0) L 07/14/20 04:00 ABG HCO3 38.0 mmol/L (22-26) H 07/14/20 04:00 ABG O2 Saturation 96.3 07/10/20 14:30 ABG Base Excess 13.3 mmol/L (-2.0-2.0) H 07/14/20 04:00 Mehdi Test Pos 07/14/20 04:00 A-a O2 Gradient 12.1 mmHg (5-10) H 07/10/20 14:30 Hematocrit 28.4 % (37-47) L 07/14/20 04:00 Hgb O2 Saturation 94.2 % (95-100) L 07/10/20 14:30 Carboxyhemoglobin 1.2 %THgb (0.4-20.1) 07/10/20 14:30 Methemoglobin 0.9 % (0.4-1.5) 07/10/20 14:30 Total Hemoglobin 9.7 g/dL (12-16) L 07/10/20 14:30 Sodium 136.0 mmol/L (131-143) 07/10/20 14:30 Potassium 4.2 mmol/L (3.5-5.0) 07/10/20 14:30 Glucose 125.0 mg/dL (70-115) H 07/10/20 14:30 Ionized Calcium 1.3 mmol/L (1.1-1.4) 07/10/20 14:30 O2 Delivery Device Nc 07/14/20 04:00 O2 Liters/Min 2.0 % 07/14/20 04:00 FiO2 36.0 % 07/12/20 04:45 Specimen Drawn By Vikas 07/06/20 04:00 Nail Kegger ID Jlg 07/14/20 04:00 Sodium 136 mmol/L (136-145) 07/14/20 05:32 Potassium 3.9 mmol/L (3.5-5.1) 07/14/20 05:32 Chloride 94 mmol/L (98-107) L 07/14/20 05:32 Carbon Dioxide 37 mmol/L (22-29) H 07/14/20 05:32 Anion Gap 8.9 (5-19) 07/14/20 05:32 BUN 35 mg/dL (6-20) H 07/14/20 05:32 Creatinine 0.9 mg/dL (0.5-0.9) 07/14/20 05:32 GFR Calculation 65.5 mL/min (90-130) L 07/14/20 05:32 Glucose 81 mg/dL (65-115) 07/14/20 05:32 Calculated Osmolality 289 mOsm/kg (285-295) 07/14/20 05:32 Lactate 0.8 mmol/L (0.5-2.2) 07/11/20 04:30 Calcium 9.5 mg/dL (8.5-10.5) 07/14/20 05:32 Phosphorus 1.7 mg/dL (2.5-4.5) L 07/14/20 05:32 Magnesium 1.9 mg/dL (1.7-2.3) 07/14/20 05:32 Iron 20 ug/dL (37-145) L 07/12/20 05:11 TIBC 345 mcg/dl 07/12/20 05:11 % Saturation 5.7 % (20-50) L 07/12/20 05:11 Unsat Iron Binding 325 ug/dL (112-347) 07/12/20 05:11 Ferritin 68 ng/mL (15-150) 07/12/20 05:11 Total Bilirubin 0.6 mg/dL (0.15-1.2) 07/14/20 05:32 AST 68 U/L (0-32) H 07/14/20 05:32 ALT 52 U/L (0-33) H 07/14/20 05:32 Alkaline Phosphatase 354 IU/L (35-105) H 07/14/20 05:32 Creatine Kinase 22 U/L (26-192) L 07/11/20 04:30 Creatine Kinase Cancelled 07/11/20 04:30 Troponin T Baseline 16 ng/L (0-10) H 07/02/20 22:43 Troponin T 120 Minute 14.30 ng/L (0-10) H 07/03/20 01:20 Delta Troponin T -1.70 ABS# (0-10) L 07/03/20 01:20 C-Reactive Protein 16.1 mg/L (0.0-4.9) H 07/11/20 04:30 NT-Pro-B Natriuret Pep 746 pg/mL (0-125) H 07/14/20 05:32 Total Protein 6.0 g/dL (6.6-8.7) L 07/14/20 05:32 Albumin 2.8 g/dL (3.5-5.2) L 07/14/20 05:32 Globulin 3.2 g/dL (1.3-4.6) 07/14/20 05:32 Lipase 16 U/L (13-60) 07/02/20 22:43 Vitamin B12 704 pg/mL (232-1245) 07/12/20 05:11 Folate 7.3 ng/mL (4.8-37.3) 07/12/20 05:11 Procalcitonin 0.53 ng/mL (0-0.5) H 07/14/20 05:32 Vancomycin Trough 26.3 ug/mL (10-15) H* 07/08/20 08:10 Nasal/Oral COVID-19 PCR Not detected 07/05/20 16:10 SARS-CoV-2 Ag (Rapid) Negative (Negative) 07/03/20 00:43 [facility] [place] Reference See comment 07/12/20 11:10 Micro: Microbiology 07/15/20 12:16 Blood Culture - Preliminary Blood SPECIMEN COLLECTED 07/15/20 12:16 Blood Culture - Preliminary Blood SPECIMEN COLLECTED A&P Assessment and plan (1) Positive blood culture: In view of the anemia, positive blood culture and aortic valve stenosis, possibility of endocarditis is a consideration. A LAMINE would be appropriate. This was discussed with the patient in detail which she understood well and consented to proceed. Had the upper and lower endoscopy yesterday The patient is scheduled for the LAMINE this afternoon. Continue n.p.o. Status: Acute (2) Acute on chronic diastolic (congestive) heart failure: Patient seems to have recurrent decompensated diastolic heart failure. Most likely the aortic valve stenosis might be a contributing factor. Her sleep apnea, anemia and possible pneumonia are contributing factors as well. Currently the heart failure is compensated. She is off the diuretics. Status: Acute (3) Anemia: Management as per the primary. The hemoglobin seems to be stable. Discussed with Dr. Little about anticoagulation. Dr. Little is managing the anticoagulation. Status: Acute Qualifiers: Anemia type: iron deficiency Iron deficiency anemia type: unspecified iron deficiency Qualified Code(s): D50.9 - Iron deficiency anemia, unspecified (4) Aortic valve stenosis: Clinically the patient seems to have severe aortic valve stenosis. We may consider doing a cardiac catheterization, to further evaluate the valve status as well as the coronary status. She apparently had a normal coronary arteries by cardiac catheterization in 2012. Since then she had a few myocardial perfusion imaging. The most recent one, revealed elevated transient ischemic dilatation ratio. Otherwise these tests were unremarkable. In view of the episodes of recurrent diastolic heart failure, patient may benefit from aortic valve intervention. We will decide on the cardiac catheterization after the LAMINE. Status: Acute Qualifiers: Cardiac valve disease etiology: nonrheumatic Qualified Code(s): I35.0 - Nonrheumatic aortic (valve) stenosis (5) Hyperlipidemia: Continue on the current medications. Status: Acute Qualifiers: Hyperlipidemia type: mixed hyperlipidemia Qualified Code(s): E78.2 - Mixed hyperlipidemia (6) Hypertension: Currently normotensive. Continue on the current medications. Status: Acute Qualifiers: Hypertension type: essential hypertension Qualified Code(s): I10 - Essential (primary) hypertension (7) Atypical chest pain: Patient has chronic atypical chest pains, currently stable. Status: Acute Additional A&P Information Other problems are as outlined before. Sleep apnea Anemia, the hemoglobin seems to be stable Renal insufficiency, seems to be improving Possible pneumonia, currently afebrile Osteoarthritis After reviewing the LAMINE, further recommendations will be made. Attestations Medical Necessity Statement*: Deferred to the primary Coding Level of Care Code Acute Candy Catcher for Chg Fwd Diagnoses Positive blood culture R78.81 Acute on chronic diastolic (congestive) heart failure I50.33 Anemia D50.9 Anemia type: iron deficiency Iron deficiency anemia type: unspecified iron deficiency Aortic valve stenosis I35.0 Cardiac valve disease etiology: nonrheumatic Hyperlipidemia E78.2 Hyperlipidemia type: mixed hyperlipidemia Hypertension I10 Hypertension type: essential hypertension Atypical chest pain R07.89
--- NOTE | 2020-07-16 08:40 | W.PM.OPSUD ---
Surgery/Procedure H&P Update DATE OF PROCEDURE: July 16, 2020 DATE H&P PERFORMED: 07/08/20 H&P UPDATE INFORMATION: I have reviewed H&P completed within last 30 days, I have examined patient prior to procedure, Changes to prior documentation as noted here (The edema of the lower extremities significant improved) and H&P is in [facility] [place] EMR on date indicated PREOP DIAGNOSIS: Rule out endocarditis PLANNED PROCEDURE: Operation Date: 07/16/20 15:00 Proposed Procedures p LAMINE (Transesophageal Echocardiogram)(Not Applicable) - Bacilio Riddle MD
[2020-07-16 08:41] LABS: Alanine Aminotransferase 41 U/L (0-33); Albumin Level 2.9 g/dL (3.5-5.2); Alkaline Phosphatase 326 IU/L (35-105); Anion Gap 9.8 (5-19); Aspartate Amino Transferase 34 U/L (0-32); Blood Urea Nitrogen 30 mg/dL (6-20); Calcium 9.1 mg/dL (8.5-10.5); Carbon Dioxide 29 mmol/L (22-29); Chloride 102 mmol/L (98-107); Globulin 2.9 g/dL (1.3-4.6); Glucose 92 mg/dL (65-115); Osmolality Calculated 290 mOsm/kg (285-295); Potassium 3.8 mmol/L (3.5-5.1); Sodium 137 mmol/L (136-145); Total Bilirubin 0.9 mg/dL (0.15-1.2); Total Protein 5.8 g/dL (6.6-8.7)
[2020-07-16] MEDS: potassium chloride ER 20 mEq Tablet 40 MEQ PO (09:14)
[2020-07-16] MEDS: sucralfate 1 gm/10 mL Oral Liq UDC PO ×2 (09:14→11:45)
[2020-07-16] MEDS: aspirin 81 mg EC Tablet PO (09:14)
[2020-07-16] MEDS: zinc gluconate 50 mg Tablet PO (09:14)
[2020-07-16] MEDS: ferrous sulfate EC 325 mg Tablet PO (09:14)
[2020-07-16] MEDS: levofloxacin-dextrose 5 % 750 MG/150 ML PREMIX 100 MG IV (09:15)
--- NOTE | 2020-07-16 09:19 | PM.PN ---
Subjective Subjective: Interval history: Patient is much more alert this morning. She denies shortness of breath or chest pain at rest. She is scheduled for LAMINE. Hemoglobin down to 8.5. Platelets are stable. Patient had evidence of gastritis on EGD and likely the cause of patient's slow GI bleed. Blood pressure normalized. Vitals/I&O/Wt Last Vital Signs Temp 98.4 F 07/16/20 08:00 Pulse 75 07/16/20 08:00 Resp 17 07/16/20 08:00 BP 111/64 07/16/20 08:00 Pulse Ox 97 07/16/20 08:00 07/15/20 07/16/20 07/16/20 22:59 06:59 14:59 Intake Total 740 / 1816.5 Output Total 800 / 800 Balance 740 / 1816.5 -800 / 1016.5 Physical Exam Const: COMMON NORMALS: no acute distress and patient oriented x3 Resp: COMMON NORMALS: normal respiratory effort and clear to auscultation bilaterally AUSCULTATION: clear to auscultation bilaterally Cardio: COMMON NORMALS: regular rate and regular rhythm RATE: regular rate RHYTHM: regular rhythm OTHER: No lower extremity pitting edema but patient has significant lymphedema, 2 out of 6 systolic murmur best heard at the right upper sternal border. GI: COMMON NORMALS: Normal to inspection, nondistended, normoactive bowel sounds present, Soft to palpation and non-tender PALPATION: Yes Soft to palpation Neuro: COMMON NORMALS: patient oriented x3 and no focal motor deficits Urinary Catheter Management^: [place]: Cath Placed During This Visit: yes, but has since been removed by the nurse Reason for Continuing Indwelling Catheter: Acute Urinary Retention or Obstruction Urinary Catheter Date of Insertion: 07/08/20 Urinary Catheter Time of Insertion: 05:40 Date Urinary Catheter Removed: 07/08/20 Time Urinary Catheter Discontinued: 04:45 Data : 07/16/20 08:10 07/16/20 08:10 Micro: Microbiology 07/15/20 12:16 Blood Culture - Preliminary Blood SPECIMEN COLLECTED 07/15/20 12:16 Blood Culture - Preliminary Blood SPECIMEN COLLECTED A&P Assessment and plan (1) Acute respiratory failure with hypoxia: Secondary to community-acquired pneumonia Status: Acute (2) Atypical chest pain: Status: Acute (3) Aortic valve stenosis: Cardiology on consult Status: Acute Qualifiers: Cardiac valve disease etiology: nonrheumatic Qualified Code(s): I35.0 - Nonrheumatic aortic (valve) stenosis (4) Acute dyspnea: Status: Acute (5) Gram-positive bacteremia: Likely contamination but true infection cannot be ruled out especially in view of concerning findings of empyema. Status: Acute (6) Community acquired pneumonia: Present on admission. Concern for underlying empyema. Status: Acute Additional A&P Information Diastolic congestive heart failure exacerbation bumex, metolazone No active infarctive or ischemic changes on EKG, troponin with negative delta PE has been ruled out Microcytic anemia due to iron deficiency, most likely chronic secondary to gastritis. 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 Continue high-dose PPI. Awaiting culture results. Awaiting LAMINE. Discussed briefly with Dr. Ho who will see patient post discharge to make sure her findings improve. At this point I do not see any need for aggressive surgical intervention. 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
[2020-07-16] MEDS: metOLazone 5 MG Tablet 10 MG PO (09:27)
[2020-07-16] MEDS: losartan 50 mg Tablet 25 MG PO (09:28)
[2020-07-16] MEDS: propranolol 20 mg Tablet 10 MG PO (09:28)
[2020-07-16] MEDS: bumetanide 0.25 mg/mL SDV 4 mL 1 MG IV (09:28)
--- NOTE | 2020-07-16 11:00 | USCV_ITS ---
Daily, Maria G Age: 54 Gender: F : 1965 Exam Date: 07/16/2020 18:17 Ordering Phys: Bacilio Riddle MD ([email or web address]) Technologist: Benson Plummer Exam Location: [facility] [place] Indication: VEG BP: / HR: Rhythm: Sinus Technical Quality: Good MEASUREMENTS (Male / Female) Normal Values Medications Patient given IV sedation by anesthesia service, for details please refer to the anesthesia report. Complications None Proc. Components LAMINE was performed at multiple levels. The patient tolerated the procedure well and there were no complications. FINDINGS Left Ventricle Normal LV size and ejection fraction. Mild to moderate concentric left renal hypertrophy. Right Ventricle Features of right ventricular hypertrophy with normal ejection fraction Right Atrium Normal right atrial size. Left Atrium Mildly increased left atrial size. LA Appendage Normal contractility with no intracavitary masses or vegetations. IA Septum Normal interatrial septum. No evidence of any PFO or ASD based on the color flow Doppler examination or saline contrast injection. Mitral Valve No masses or vegetations noted . Aortic Valve Tricuspid valve with moderate calcification. Valve area is calculated to be 0.82 cm squared, based on the transthoracic examination findings. [id number] aortic valve regurgitation. Peak velocity of 4.18 m/s with a peak gradient of 74 and a mean gradient of 37. Valve area was calculated to be 0.88 cm squared Tricuspid Valve No gross morphology abnormalities are noted. Trace to mild tricuspid regurgitation was noted Pulmonic Valve No morphology abnormalities were noted Pericardium Small pericardial effusion Aorta Minimal plaques in the ascending aorta CONCLUSIONS No intracardiac masses or vegetations. Severe aortic valve stenosis with moderate diffuse calcification in the leaflet margins. Peak velocity of 4.18 m/s with a peak gradient of 74 and a mean gradient of 37 mmHg. Calculated valve area was 0.88 cm squared.(The aortic and the LV outflow tract Doppler studies were performed by TTE) Mild to moderate aortic and mild mitral valve regurgitation. Trace to mild tricuspid regurgitation Mild concentric left ventricular hypertrophy with normal ejection fraction. Mildly dilated left atrium. Possible small pericardial effusion. No intracardiac masses. No similar previous studies are available for comparison Dr Bacilio Riddle MD [facility] (Electronically Signed) Final Date: 16 July 2020 19:39 S
[2020-07-16] MEDS: acetaZOLAMIDE 250 mg Tablet 500 MG PO (11:43)
--- NOTE | 2020-07-16 15:37 | P.ANESUD_ITS ---
Pre-Anesthetic Update Pre-Anesthetic Assessment: Date of Surgery/Procedure: 07/16/20 Preop Nohelia gnosis: Rule out endocarditis Proposed Procedure: Operation Date: 07/16/20 15:05 Proposed Procedures p LAMINE(Not Applicable) - Bacilio Riddle MD Any changes to Pre-Anesthetic Assessment?: No Labs Last 48hrs: Laboratory Results - last 48 hr 07/16/20 07/16/20 08:10 08:10 WBC 9.7 RBC 3.47 L Hgb 8.5 L Hct 27.7 L MCV 79.8 L MCH 24.5 L MCHC 30.7 RDW 19.2 H Plt Count 260 MPV 11.0 H Neut % (Auto) 60.2 Lymph % (Auto) 17.2 [place] % (Auto) 19.1 Eos % (Auto) 3.1 Baso % (Auto) 0.2 Neut # (Auto) 5.85 Lymph # (Auto) 1.7 [place] # (Auto) 1.9 H Eos # (Auto) 0.3 Baso # (Auto) 0.0 Nucleated RBC % (a uto) 0 Nucleated RBCs # 0.0 Sodium 137 Potassium 3.8 Chloride 102 Carbon Dioxide 29 Anion Gap 9.8 BUN 30 H Creatinine 0.8 GFR Calculation 75.0 L Glucose 92 Calculated Osmolal ity 290 Calcium 9.1 Total Bilirubin 0.9 AST 34 H ALT 41 H Alkaline Phosphata se 326 H Total Protein 5.8 L Albumin 2.9 L Globulin 2.9 Vitals: Temperature 97.7 F 07/16/20 11:37 Temperature Source Oral 07/16/20 11:37 Pulse Rate 69 07/16/20 11:37 Pulse Rhythm 07/16/20 08:00 Pulse Strength 3+ Normal 07/16/20 08:00 Respiratory Rate 16 07/16/20 11:37 Respiratory Effort Non-Labored 07/16/20 08:00 Respiratory Depth Normal 07/16/20 08:00 Respiratory Patter n 07/16/20 08:00 Blood Pressure 110/67 07/16/20 11:37 Blood Pressure [place] n 81 07/16/20 11:37 Blood Pressure Pos ition Semi Fowlers 07/14/20 20:30 Pulse Oximetry 99 07/16/20 11:37 Oxygen Delivery Me thod 07/16/20 11:37 Oxygen Flow Rate 2 07/16/20 09:18 Fraction of Inspir ed Oxygen 36 07/15/20 21:50 Sepsis Recent Feve r Within 48 Hours No 07/02/20 22:57 Exam: Pre-Anes Outpt Exam: alert, oriented x 3, clear to auscultation bilaterally and regular rate & rhythm Cardiac Studies: No Data to Display
--- NOTE | 2020-07-16 18:28 | PC.NURSE ---
Patient left the floor at 1515 with OR staff.
--- NOTE | 2020-07-16 18:42 | ANE.PACU2 ---
Inpatient post-anesthesia follow up: Airway intact: Yes Vital signs: Temperature 97.5 F Pulse Rate [Monito r] 94 Pulse Rate 67 Respiratory Rate 16 Blood Pressure [Ri ght Arm] 165/85 Blood Pressure 119/48 Pulse Oximetry 100 Oxygen Delivery Me thod Nasal Cannula Oxygen Flow Rate 2 Fraction of Inspir ed Oxygen 36 Hydration adequate: Yes Nausea and vomiting: No Pain level: 1 Mental status: Baseline
[2020-07-16] MEDS: enoxaparin 40 mg/0.4 mL Syringe SUBCUT (20:19)
[2020-07-17] VITALS (40 sets, daily range): BP systolic 86–145; BP diastolic 41–79; PULSE 65–87; RESP 14–26; TEMP 36.7–36.8; O2SAT 90–99
[2020-07-17 05:41] LABS: Basophils % 0.4 %; Eosinophils # 0.3 10^3/uL (0.0-0.8); Hematocrit 27.1 % (37.0-47.0); Hemoglobin 8.1 g/dL (11.5-15.3); Lymphocytes # 1.9 10^3/uL (0.8-4.8); Lymphocytes % 25.2 %; Mean Corpuscular HGB Conc 29.9 g/dL (30.0-36.0); Mean Corpuscular Hemoglobin 24.1 pg (28.0-34.0); Mean Corpuscular Volume 80.7 fL (81-99); Monocytes # 1.6 10^3/uL (0.2-0.9); Monocytes % 20.5 %; Neutrophils # 3.76 10^3/uL (1.8-7.7); Neutrophils % 49.6 %; Nucleated Red Blood Cells % 0 %; Platelet Count 215 10^3/cmm (130-400); Red Blood Count 3.36 10^6/uL (4.1-5.3); Red Cell Distribution Width 19.9 % (12.1-15.1); White Blood Count 7.6 10^3/uL (4.0-10.0)
[2020-07-17] MEDS: sodium chloride 0.9% 1,000 ML 50 ML IV (05:45)
[2020-07-17 06:06] LABS: Alanine Aminotransferase 34 U/L (0-33); Albumin Level 2.7 g/dL (3.5-5.2); Alkaline Phosphatase 291 IU/L (35-105); Anion Gap 12.5 (5-19); Aspartate Amino Transferase 27 U/L (0-32); Blood Urea Nitrogen 28 mg/dL (6-20); Carbon Dioxide 28 mmol/L (22-29); Chloride 103 mmol/L (98-107); Globulin 2.8 g/dL (1.3-4.6); Glucose 69 mg/dL (65-115); Magnesium 1.8 mg/dL (1.7-2.3); Osmolality Calculated 294 mOsm/kg (285-295); Potassium 3.5 mmol/L (3.5-5.1); Sodium 140 mmol/L (136-145); Total Bilirubin 0.7 mg/dL (0.15-1.2); Total Protein 5.5 g/dL (6.6-8.7)
--- NOTE | 2020-07-17 10:00 | XACV_ITS ---
Exam Room: [facility] Ht: 168 cm Wt: 166 kg BSA: 2.88 m2 Gender: Female : 1965 Any Known Allergies: Other Exam Priority: Routine Procedure(s): Procedure Description: Diagnostic procedure Procedure Description: Right Heart Catheterization Procedure Description: O2 saturation Procedure Description: Coronary Angiography Diagnostic Cath Status: Urgent Diagnostic Findings * LM has 0% stenosis. * CX has 0% stenosis. * dLAD: Mild 20% stenosis, MYLA: 3 flow. * mRCA: Mild 20% stenosis, MYLA: 3 flow. * Coronary angiography shows right dominance. Conclusions 1. Right heart cathRA mean 13 mmHgRV 53/20 mmHgPA mean 33 mmHgNo significant stepup noted. 2. There is mild coronary artery disease with two vessel disease. Recommendations * 1-Return to inpatient for close monitoring and routine cath care 2-Risk factor modification for secondary prevention 3-Statin and aspirin 81 mg life--long, if tolerated 4-Follow-up with Dr. Riddle 5-Continue optimal medical management . Pressures Phase:Rest AO : 94 / 48 ( 65 ) @ 5:10:00 AM 98 / 59 ( 72 ) @ 5:15:00 AM 106 / 64 ( 81 ) @ 5:26:00 AM RV : 53 / 20 / @ 5:02:00 AM PA : 53 / 23 ( 33 ) @ 4:59:00 AM RA : a wave = v wave = mean = 13 @ 5:03:00 AM O2 Content Phase:Rest PA : O2 Content O2: 55.4 @ 5:10:00 AM Saturations Phase:Rest AO : 83 @ 4:59:00 AM RA : 55 @ 5:26:00 AM RV : 54 @ 5:15:00 AM PA : 55 @ 5:10:00 AM Cardiac Output Phase:Rest Adia : 8 @ 5:10:00 AM Adia Cardiac Index: 3 @ 5:10:00 AM Clinical Evaluation EBL: 5mL-10mL Procedural Details Procedure Consent Obtained. Pre-Procedure Time Out. Identified patient by full name and date of as verbalized by the patient/guarantor. Does the consent match the physician's order: Yes. Accurate & Complete Informed Consent: Yes. Inpatient/Outpatient History & Physical on Chart: Yes. If H&P is completed, is and addenduem needed: No; If yes, is the addendum complete: N/A. Visualize and Verify Site with Patient/Guarantor: N/A. Relevant Radiology Images available: N/A. Pre-op teaching completed and patient verbalized understanding. The risks, benefits, and alternatives of sedation and/or procedure were discussed by physician. The patient agrees to continue. Procedure started. [facility] Clinical Fraility Score: 4: Vulnerable. Bathhouse Keeper Indications: Valvular Disease. Chest Pain Symptom Assessment: Atypical Angina. Cardiovascular Instability: No. Correct patient, site and procedure confirmed by cath team. PERRLA. Strong, equal hand tie tamper bilaterally. Lungs clear x 5 lobes. IV Site on Arrival: 20 gauge in the right anticubital. IV Site on Arrival: 22 gauge in the left hand. IV Fluids: 0.9% NaCl at KVO. 200 mL infused prior to cath lab radiological technologist. Pre Procedural Pulses: bilateral radial was 2+. Pre Procedural Pulses: bilateral dorsalis pedis was Doppled. Pre Procedural Pulses: bilateral posterior tibial was Doppled. bilateral groins was prepped with chloroprep then draped in the usual sterile fashion. Physician notified. Baseline sample Acquired. HR: 77 BPM. Equipment: 6F - Radial. Cardiac Cath Pack. ACIST Manifold Kit Model BT 2000. Heparinized Saline (2 units/mL), 1000 mL bag. Physician arrived. Physician scrubbed in. Immediate Pre-Procedure Time Out. Correct Patient: Yes; Correct Procedure: Yes; Correct Site: Yes; Correct Patient Position: Yes; Correct Supplies: Yes; Dried Flammable Prep: Yes; Blood Products Available: N/A;. Lidocaine 1% infiltrated to the right brachial. Wire inserted through IV catheter in right brachial. [place] MON catheter inserted. Lidocaine 1% infiltrated to the right radial. Arterial access obtained. A 5 azerbaijani TIG catheter in over wire. Oxygen started at 2liters/min via nasal canula. Catheter removed over the exchange wire. A Terumo 5 Fr Rudi Radial Catheter, 110cm was advanced over the wire and used for Left coronary angiography. Catheter removed over the exchange wire. A 5 azerbaijani JL4 catheter in over wire. Catheter removed over the exchange wire. A CRD 5F JR4 Diagnostic Catheter was advanced over the wire and used for Right coronary angiography. Catheter removed over the exchange wire. A 5 azerbaijani 3DRC catheter in over wire. Multiple views taken of right coronary artery. Multiple views taken of left coronary artery. Catheter removed over the exchange wire. Physician scrubbed out. A Manual Compression was successful obtaining hemostatsis at the Right Brachial Vein insertion site. A TR Band was successful obtaining hemostatsis at the Right Radial artery insertion site. TR band placed. Hemostasis obtained. Post Procedure: Pulses reassessed and unchanged. PERRLA. Strong, equal hand tie tamper bilaterally. No VTE prophylaxis required. Medication's Wasted: Lidocaine 1% = 10 mL. Medication's Wasted: Nitro = 49.8 mg. Medication's Wasted: Heparin = 1000 units. Total IV fluids: 150 mL. Contrast type used: Omnipaque 300 mgI/mL, 500 mL bottle. Post-op diagnosis: normal coronaries. Complications: none. Estimated blood loss: 5mL-10mL. Procedure completed. Patient transferred by bed to ICU. Vital chart was stopped. Access Site Site: Right Brachial Vein Sheath Size: 6 Fr Hemostasis Method: Manual Compression Hemostasis Success: Successful Site: Right Radial artery Sheath Size: 6 Fr Hemostasis Method: TR Band Hemostasis Success: Successful Procedure Medications Start: 10:51 AM Stop: 10:51 AM Medication: Benadryl Amount: 50 mg Route: I.V. Start: 10:50 AM Stop: 10:50 AM Medication: Versed Amount: 1 mg Route: I.V. Start: 10:51 AM Stop: 10:51 AM Medication: Fentanyl Amount: 50 mcg Route: I.V. Start: 11:04 AM Stop: 11:04 AM Medication: Versed Amount: 1 mg Route: I.V. Start: 11:04 AM Stop: 11:04 AM Medication: Fentanyl Amount: 50 mcg Route: I.V. Start: 11:07 AM Stop: 11:07 AM Medication: Nitrogylcerin Amount: 200 mcg Route: I.A. Start: 11:09 AM Stop: 11:09 AM Medication: Heparin Amount: 5000 units Route: I.V. Start: 11:27 AM Stop: 11:27 AM Medication: Fentanyl Amount: 50 mcg Route: I.V. Start: 11:31 AM Stop: 11:31 AM Medication: Fentanyl Amount: 50 mcg Route: I.V. I, the attending physician, have reviewed and verified all procedure medications. Yes, all medications given per verbal order History/Risk Factors Hypertension: Yes Dyslipidemia: Yes Peripheral Arterial Disease (PAD): No Myocardial Infarction (SD): No Obesity: Yes Renal Disease: No Prior Interventions PCI: No CABG: No Valve Surgery: No Report Signatures Amended by Aniyah Blanca MD on 08/30/2020 03:17 PM Amended by Aniyah Blanca MD on 08/13/2020 10:56 AM Finalized by Aniyah Blanca MD on 07/20/2020 06:57 PM
[2020-07-17 10:35] LABS: Vancomycin Trough 18.6 ug/mL (10-15)
--- NOTE | 2020-07-17 10:47 | W.PM.OPSUD ---
Surgery/Procedure H&P Update DATE OF PROCEDURE: July 17, 2020 DATE H&P PERFORMED: 07/08/20 H&P UPDATE INFORMATION: I have reviewed H&P completed within last 30 days, I have examined patient prior to procedure and No changes to prior documentation PREOP DIAGNOSIS: Preoperative angiogram for aortic stenosis PLANNED PROCEDURE: Operation Date: 07/15/20 10:00 Proposed Procedures p EGD(Not Applicable) - Kavon Briseno MD s Colonoscopy(Not Applicable) - Kavon Briseno MD Operation Date: 07/16/20 15:05 Proposed Procedures p LAMINE(Not Applicable) - Bacilio Riddle MD Operation Date: 07/17/20 10:30 Proposed Procedures p Cardiac Catheterization(Bilateral) - Bacilio Riddle MD PATIENT REASSESSED PRIOR TO SEDATION, WITH NO CHANGE NOTED: Yes PHYSICAL EXAM: alert, oriented x 3 and clear to auscultation bilaterally AIRWAY EVAL/ANESTHESIA PLAN: ASA II, Risks, benefits & alternatives of sedation and/or procedure discussed and Patient agrees to continue as planned
--- NOTE | 2020-07-17 11:36 | P.PN_ITS ---
Subjective Subjective: Interval history: Patient underwent coronary angiogram which showed normal coronaries. Medications: Reviewed: Yes Medication Review Details: Current Medications Acetaminophen (Acetaminophen 325 Mg Tablet) 650 mg PO Q6H PRN PRN Reason: MILD PAIN Last Admin: 07/16/20 01:21 Dose: 650 mg Documented by: Acetazolamide (Acetazolamide 250 Mg Tablet) 500 mg PO Q12H COUNT INCLUDES THE [facility] Last Admin: 07/15/20 21:39 Dose: 500 mg Documented by: Albuterol Sulfate (Albuterol 2.5 Mg/0.5 Ml Neb) 2.5 mg INHALATION Q4H.RESPIRATORY PRN PRN Reason: SHORTNESS OF BREATH Last Admin: 07/13/20 09:05 Dose: 2.5 mg Documented by: Albuterol/Ipratropium (Ipratropium-Albuterol 3 Ml Neb) 3 ml INHALATION Q6H.RESPIRATORY PRN PRN Reason: SHORTNESS OF BREATH Apixaban (Apixaban 5 Mg Tablet) 5 mg PO BID@ COUNT INCLUDES THE [facility] Last Admin: 07/05/20 07:15 Dose: 5 mg Documented by: Aspirin (Aspirin 81 Mg Ec Tablet) 81 mg PO DAILY COUNT INCLUDES THE [facility] Last Admin: 07/14/20 08:27 Dose: 81 mg Documented by: Atorvastatin Calcium (Atorvastatin 40 Mg Tablet) 20 mg PO DAILY@ COUNT INCLUDES THE [facility] Last Admin: 07/15/20 21:39 Dose: 20 mg Documented by: Bumetanide (Bumetanide 0.25 Mg/Ml Sdv 4 Ml) 1 mg IV Q24H COUNT INCLUDES THE [facility] Last Admin: 07/14/20 08:30 Dose: 1 mg Documented by: Bupropion HCl (Bupropion Sr (12 Hr) 150 Mg Tablet) 150 mg PO BID@ COUNT INCLUDES THE [facility] Last Admin: 07/16/20 05:17 Dose: 150 mg Documented by: Docusate Sodium (Docusate Sodium 100 Mg Capsule) 100 mg PO DAILY PRN PRN Reason: Constipation Last Admin: 07/13/20 14:53 Dose: 100 mg Documented by: Duloxetine HCl (Duloxetine 60 Mg Capsule) 60 mg PO DAILY@06 COUNT INCLUDES THE [facility] Last Admin: 07/16/20 05:17 Dose: 60 mg Documented by: Enoxaparin Sodium (Enoxaparin 30 Mg/0.3 Ml Syringe) 30 mg SUBCUT Q12H COUNT INCLUDES THE [facility] Last Admin: 07/12/20 06:18 Dose: 30 mg Documented by: Enoxaparin Sodium (Enoxaparin 120 Mg/0.8 Ml Syringe) 120 mg SUBCUT Q12H COUNT INCLUDES THE [facility] Last Admin: 07/12/20 06:18 Dose: 120 mg Documented by: Ferrous Sulfate (Ferrous Sulfate Ec 325 Mg Tablet) 325 mg PO BIDWM COUNT INCLUDES THE [facility] Last Admin: 07/15/20 18:27 Dose: Not Given Documented by: Gabapentin (Gabapentin 300 Mg Capsule) 300 mg PO BEDTIME@22 COUNT INCLUDES THE [facility] Last Admin: 07/15/20 21:39 Dose: 300 mg Documented by: Hydroxyzine HCl (Hydroxyzine 10 Mg Tablet) 10 mg PO Q8H PRN PRN Reason: ANXIETY Last Admin: 07/14/20 05:57 Dose: 10 mg Documented by: Levofloxacin/Dextrose (Levaquin-D5w) 750 mg in 150 mls @ 100 mls/hr IV Q24H COUNT INCLUDES THE [facility]; Protocol Vancomycin HCl 2,000 mg/ (Sodium Chloride) 500 mls @ 250 mls/hr IV Q24H COUNT INCLUDES THE [facility] Last Infusion: 07/15/20 15:53 Dose: Infused Documented by: Levothyroxine Sodium (Levothyroxine 100 Mcg Tablet) 100 mcg PO DAILY@06 COUNT INCLUDES THE [facility] Last Admin: 07/16/20 05:17 Dose: 100 mcg Documented by: Losartan Potassium (Losartan 50 Mg Tablet) 25 mg PO DAILY COUNT INCLUDES THE [facility] Last Admin: 07/14/20 08:27 Dose: 25 mg Documented by: Metolazone (Metolazone 5 Mg Tablet) 10 mg PO DAILY COUNT INCLUDES THE [facility] Last Admin: 07/12/20 08:01 Dose: 10 mg Documented by: Midodrine (Midodrine 5 Mg Tablet) 5 mg PO Q8H COUNT INCLUDES THE [facility] Last Admin: 07/16/20 05:17 Dose: 5 mg Documented by: Ondansetron HCl (Ondansetron 2 Mg/Ml Sdv 2 Ml) 4 mg IVP Q4H PRN PRN Reason: NAUSEA AND VOMITING Last Admin: 07/08/20 08:37 Dose: 4 mg Documented by: Pantoprazole Sodium (Pantoprazole Dr 40 Mg Tablet) 40 mg PO BID@, COUNT INCLUDES THE [facility] Last Admin: 07/16/20 05:19 Dose: 40 mg Documented by: Potassium Chloride (Potassium Chloride Er 20 Meq Tablet) 40 meq PO Q12H COUNT INCLUDES THE [facility] Last Admin: 07/15/20 21:39 Dose: 40 meq Documented by: Propranolol HCl (Propranolol 20 Mg Tablet) 10 mg PO BID COUNT INCLUDES THE [facility] Last Admin: 07/15/20 18:24 Dose: 10 mg Documented by: Fluticasone/Salmeterol (Fluticasone-Salmeterol 100-50 Diskus) 1 puff INHALATION BID.RESPIRATORY COUNT INCLUDES THE [facility] Last Admin: 07/15/20 20:14 Dose: Not Given Documented by: Spironolactone (Spironolactone 25 Mg Tablet) 25 mg PO DAILY@06 COUNT INCLUDES THE [facility] Last Admin: 07/16/20 05:18 Dose: 25 mg Documented by: Sucralfate (Sucralfate 1 Gm/10 Ml Oral Liq Udc) 1 gm PO AC&BEDTIME COUNT INCLUDES THE [facility] Last Admin: 07/15/20 21:42 Dose: 1 gm Documented by: Zinc Gluconate (Zinc Gluconate 50 Mg Tablet) 50 mg PO DAILY COUNT INCLUDES THE [facility] Last Admin: 07/14/20 08:27 Dose: 50 mg Documented by: Vitals/I&O/Wt Last Vital Signs Temp 98.2 F 07/17/20 05:00 Pulse 72 07/17/20 07:54 Resp 17 07/17/20 07:54 BP 90/52 07/17/20 05:00 Pulse Ox 96 07/17/20 07:54 07/16/20 07/17/20 07/17/20 22:59 06:59 14:59 Intake Total 120 / 270 0 / 0 Output Total 875 / 875 900 / 1775 350 / 350 Balance -755 / -605 -900 / -1505 -350 / -350 Physical Exam Narrative: EXAM NARRATIVE: GENERAL: Patient is alert, awake and oriented x3. NECK: No jugular vein distension. HEENT: No cyanosis. No icterus. No pallor. HEART: Regular S1 and S2. 2/6 sys murmur, rub or gallop. LUNGS: Clear to auscultate bilaterally. ABDOMEN: Soft, nontender and nondistended. Positive bowel sounds. No guarding, rebound or tenderness. CENTRAL NERVOUS SYSTEM: Grossly nonfocal. EXTREMITIES: Lower extremities wih 1+ edema bilaterally. Const: COMMON NORMALS: alert Resp: COMMON NORMALS: clear to auscultation bilaterally AUSCULTATION: clear to auscultation bilaterally Neuro: SENSORIUM/ORIENTATION: Yes alert Urinary Catheter Management^: [place]: Cath Placed During This Visit: yes, but has since been removed by the nurse Reason for Continuing Indwelling Catheter: Acute Urinary Retention or Obstruction Urinary Catheter Date of Insertion: 07/08/20 Urinary Catheter Time of Insertion: 05:40 Date Urinary Catheter Removed: 07/08/20 Time Urinary Catheter Discontinued: 04:45 Data : 07/17/20 04:54 07/17/20 04:54 Micro: Microbiology 07/15/20 12:16 Blood Culture - Preliminary Blood NEGATIVE TO DATE 07/15/20 12:16 Blood Culture - Preliminary Blood NEGATIVE TO DATE A&P Assessment and plan (1) Positive blood culture: Herrera esophageal echocardiogram was not suggestive of bacterial endocar ditis. It also confirmed severe aortic stenosis. Continue antibiotics as per medicine Status: Acute (2) Acute on chronic diastolic (congestive) heart failure: Patient continues to be compensated. Continue current regimen Status: Acute (3) Anemia: . Status: Acute Qualifiers: Anemia type: iron deficiency Iron deficiency anemia type: unspecified iron deficiency Qualified Code(s): D50.9 - Iron deficiency anemia, unspecified (4) Aortic valve stenosis: Severe aortic stenosis requires aortic valve replacement. Dr. Riddle will refer her for AVR. Status: Acute Qualifiers: Cardiac valve disease etiology: nonrheumatic Qualified Code(s): I35.0 - Nonrheumatic aortic (valve) stenosis (5) Hyperlipidemia: Continue on the current medications. Status: Acute Qualifiers: Hyperlipidemia type: mixed hyperlipidemia Qualified Code(s): E78.2 - Mixed hyperlipidemia (6) Hypertension: Stable and controlled continue meds Status: Acute Qualifiers: Hypertension type: essential hypertension Qualified Code(s): I10 - Essential (primary) hypertension (7) Atypical chest pain: No coronary artery disease noted on the coronary angiogram chest pain atypical Status: Acute Additional A&P Information Other problems are as outlined before. Sleep apnea Anemia, the hemoglobin seems to be stable Renal insufficiency, seems to be improving Possible pneumonia, currently afebrile Osteoarthritis After reviewing the LAMINE, further recommendations will be made. Attestations Medical Necessity Statement*: Patient require continuation hospitalization for above defined care Coding Level of Care Code Established Pt Acute Night Monitor for Jose Graham Patient Type Established History Detailed Exam Detailed Medical Decision Making Moderate Complexity Diagnoses Positive blood culture R78.81 Acute on chronic diastolic (congestive) heart failure I50.33 Anemia D50.9 Anemia type: iron deficiency Iron deficiency anemia type: unspecified iron deficiency Aortic valve stenosis I35.0 Cardiac valve disease etiology: nonrheumatic Hyperlipidemia E78.2 Hyperlipidemia type: mixed hyperlipidemia Hypertension I10 Hypertension type: essential hypertension Atypical chest pain R07.89
--- NOTE | 2020-07-17 12:00 | PC.NURSE ---
From sleep lab technician Pt is drowsy and confused on where she is at and what had happened upon received from sleep lab technician. Oriented on year and her birthday. Pt has intact TR band on right wrist. No bleeding, hematoma or swelling on right wrist. Small bruising noted around puncture area. Radial pulse is palpable +2 to +3. Pressure dressing noted on right AC space. Instructed pt on activity restrictions. Pt needed reinforcement.
--- NOTE | 2020-07-17 13:28 | PC.NURSE ---
TR Band off Tr band has noted to be off and at the pt's tray. Noted air is still in the tr band. No bleeding, hematoma, swelling noted on right wrist and right forearm. radial pulse is palpable +3. Applied small amt of betadine on the puncture site. Covered with transparent dressing. Neurovascular checks and monitored.
--- NOTE | 2020-07-17 15:43 | PM.PN ---
Subjective Subjective: Interval history: Patient underwent coronary angiogram which showed normal coronaries. Patient appears slightly confused after procedure. She knew that she is in the hospital but for some reason she thought there is some teaching and modeling going on. She denies shortness of breath or chest pain. She did receive fentanyl and Versed during procedure and appears to be under effect. She has no focal neurological findings. Her blood pressure slightly on the lower side but patient did not eat the whole day. I have discussed with Dr. Riddle yesterday who had concern for patient not being anticoagulated and therefore Lovenox for prophylaxis was restarted. Hemoglobin further declined to 8.1. Patient had LAMINE yesterday showing no evidence of endocarditis. Severe aortic valve stenosis was confirmed. Vitals/I&O/Wt Last Vital Signs Temp 98.2 F 07/17/20 11:42 Pulse 80 07/17/20 14:00 Resp 24 H 07/17/20 13:30 BP 94/53 07/17/20 13:30 Pulse Ox 99 07/17/20 12:00 07/17/20 07/17/20 07/17/20 06:59 14:59 22:59 Intake Total 236 / 236 Output Total 900 / 1775 900 / 900 Balance -900 / -1505 -664 / -664 Physical Exam Const: COMMON NORMALS: no acute distress and patient oriented x3 Resp: COMMON NORMALS: normal respiratory effort and clear to auscultation bilaterally AUSCULTATION: clear to auscultation bilaterally Cardio: COMMON NORMALS: regular rate and regular rhythm RATE: regular rate RHYTHM: regular rhythm OTHER: No lower extremity pitting edema but patient has significant lymphedema, 2 out of 6 systolic murmur best heard at the right upper sternal border. GI: COMMON NORMALS: Normal to inspection, nondistended, normoactive bowel sounds present, Soft to palpation and non-tender PALPATION: Yes Soft to palpation Neuro: COMMON NORMALS: patient oriented x3 and no focal motor deficits Urinary Catheter Management^: [place]: Cath Placed During This Visit: yes, but has since been removed by the nurse Reason for Continuing Indwelling Catheter: Acute Urinary Retention or Obstruction Urinary Catheter Date of Insertion: 07/08/20 Urinary Catheter Time of Insertion: 05:40 Date Urinary Catheter Removed: 07/08/20 Time Urinary Catheter Discontinued: 04:45 Data : 07/17/20 04:54 07/17/20 04:54 Micro: Microbiology 07/15/20 12:16 Blood Culture - Preliminary Blood NEGATIVE TO DATE 07/15/20 12:16 Blood Culture - Preliminary Blood NEGATIVE TO DATE A&P Assessment and plan (1) Acute respiratory failure with hypoxia: Secondary to community-acquired pneumonia Status: Acute (2) Atypical chest pain: Status: Acute (3) Aortic valve stenosis: Cardiology on consult Status: Acute Qualifiers: Cardiac valve disease etiology: nonrheumatic Qualified Code(s): I35.0 - Nonrheumatic aortic (valve) stenosis (4) Acute dyspnea: Status: Acute (5) Gram-positive bacteremia: Likely contamination but true infection cannot be ruled out especially in view of concerning findings of empyema. Status: Acute (6) Community acquired pneumonia: Present on admission. Concern for underlying empyema. Status: Acute Additional A&P Information Diastolic congestive heart failure exacerbation bumex, metolazone No active infarctive or ischemic changes on EKG, troponin with negative delta PE has been ruled out Microcytic anemia due to iron deficiency, most likely chronic secondary to gastritis. 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 Stop sucralfate continue twice daily Protonix. Change iron to every other day to improve absorption Attestations Medical Necessity Statement*: Patient with severe aortic valve stenosis as well as declining hemoglobin requires close inpatient monitoring and treatment until deemed safe for discharge. Coding Level of Care Code Acute Zoology Technical Officer for Jose Fwavis Diagnoses Acute respiratory failure with hypoxia J96.01 Atypical chest pain R07.89 Aortic valve stenosis I35.0 Cardiac valve disease etiology: nonrheumatic Acute dyspnea R06.00 Gram-positive bacteremia R78.81 Community acquired pneumonia J18.9
[2020-07-17] MEDS: levofloxacin-dextrose 5 % 750 MG/150 ML PREMIX 100 MG IV (17:01)
[2020-07-17] MEDS: propranolol 20 mg Tablet 10 MG PO (18:29)
--- NOTE | 2020-07-17 19:39 | PC.NURSE ---
Received report from FERNANDO [place]. Patient resting in bed. Denies pain or needs presently. Patient is s/p [facility] with right radial access. Dressing is c,d,i with no s/s of bleeding or hematoma formation observed. Patient has jackson catheter in place with clear yellow urine noted. No distress observed.
[2020-07-17] MEDS: buPROPion SR (12 HR) 150 mg Tablet PO (21:22)
[2020-07-17] MEDS: midodrine 5 mg TABLET PO (21:22)
[2020-07-17] MEDS: pantoprazole DR 40 mg Tablet PO (21:22)
[2020-07-17] MEDS: gabapentin 300 mg Capsule PO (21:22)
[2020-07-17] MEDS: potassium chloride ER 20 mEq Tablet 40 MEQ PO (21:22)
[2020-07-17] MEDS: acetaZOLAMIDE 250 mg Tablet 500 MG PO (21:22)
[2020-07-17] MEDS: atorvastatin 40 mg Tablet 20 MG PO (21:22)
[2020-07-18] VITALS (15 sets, daily range): BP systolic 98–142; BP diastolic 49–83; PULSE 73–83; RESP 15–28; TEMP 36.3–36.8; O2SAT 90–96
[2020-07-18 04:28] LABS: Basophils % 0.4 %; Eosinophils # 0.3 10^3/uL (0.0-0.8); Eosinophils % 3.8 %; Hematocrit 27.5 % (37.0-47.0); Hemoglobin 8.4 g/dL (11.5-15.3); Lymphocytes # 1.7 10^3/uL (0.8-4.8); Lymphocytes % 20.8 %; Mean Corpuscular HGB Conc 30.5 g/dL (30.0-36.0); Mean Corpuscular Hemoglobin 24.9 pg (28.0-34.0); Mean Corpuscular Volume 81.4 fL (81-99); Monocytes # 1.6 10^3/uL (0.2-0.9); Monocytes % 19.3 %; Neutrophils # 4.53 10^3/uL (1.8-7.7); Neutrophils % 55.5 %; Nucleated Red Blood Cells % 0 %; Platelet Count 219 10^3/cmm (130-400); Red Blood Count 3.38 10^6/uL (4.1-5.3); Red Cell Distribution Width 20.1 % (12.1-15.1); White Blood Count 8.2 10^3/uL (4.0-10.0)
[2020-07-18 04:50] LABS: Alanine Aminotransferase 30 U/L (0-33); Albumin Level 2.8 g/dL (3.5-5.2); Alkaline Phosphatase 292 IU/L (35-105); Anion Gap 11.4 (5-19); Aspartate Amino Transferase 24 U/L (0-32); Blood Urea Nitrogen 25 mg/dL (6-20); Carbon Dioxide 27 mmol/L (22-29); Chloride 103 mmol/L (98-107); Globulin 3.1 g/dL (1.3-4.6); Glomerular Filtration Rate 65.5 mL/min (90-130); Glucose 80 mg/dL (65-115); Magnesium 1.8 mg/dL (1.7-2.3); Osmolality Calculated 289 mOsm/kg (285-295); Potassium 3.4 mmol/L (3.5-5.1); Sodium 138 mmol/L (136-145); Total Bilirubin 0.6 mg/dL (0.15-1.2); Total Protein 5.9 g/dL (6.6-8.7)
[2020-07-18] MEDS: levothyroxine 100 mcg Tablet PO (05:38)
[2020-07-18] MEDS: midodrine 5 mg TABLET PO ×2 (05:38→21:11)
[2020-07-18] MEDS: pantoprazole DR 40 mg Tablet PO ×2 (05:38→21:11)
[2020-07-18] MEDS: duloxetine 60 mg Capsule PO (05:38)
[2020-07-18] MEDS: spironolactone 25 mg Tablet PO (05:38)
[2020-07-18] MEDS: buPROPion SR (12 HR) 150 mg Tablet PO ×2 (05:39→21:11)
[2020-07-18] MEDS: bumetanide 0.25 mg/mL SDV 4 mL 1 MG IV (08:00)
[2020-07-18] MEDS: losartan 50 mg Tablet 25 MG PO (08:02)
[2020-07-18] MEDS: metOLazone 5 MG Tablet 10 MG PO (08:02)
[2020-07-18] MEDS: zinc gluconate 50 mg Tablet PO (08:02)
[2020-07-18] MEDS: acetaZOLAMIDE 250 mg Tablet 500 MG PO ×2 (08:03→21:11)
[2020-07-18] MEDS: potassium chloride ER 20 mEq Tablet 40 MEQ PO ×2 (09:20→21:11)
[2020-07-18] MEDS: propranolol 20 mg Tablet 10 MG PO ×2 (09:23→18:38)
--- NOTE | 2020-07-18 10:05 | PC.SOCIAL ---
IMM Updated Updated pt on Pg 2 IMM. No questions voiced. Provided pt a copy. Signed, dated, & timed copy in chart.
--- NOTE | 2020-07-18 11:10 | PM.PN ---
Subjective Subjective: Interval history: Patient denies shortness of breath or chest pain this morning. She is more alert and oriented compared to yesterday. She knew that she is in [facility]. She knew year and was able to recall name of president. Vitals/I&O/Wt Last Vital Signs Temp 97.6 F 07/18/20 10:48 Pulse 75 07/18/20 10:48 Resp 22 H 07/18/20 10:48 BP 133/62 07/18/20 10:48 Pulse Ox 92 07/18/20 10:48 07/17/20 07/18/20 07/18/20 22:59 06:59 14:59 Intake Total 1734.167 / 1970.167 120 / 120 Output Total 750 / 1650 Balance 1734.167 / 1070.167 -750 / 320.167 120 / 120 Physical Exam Const: COMMON NORMALS: no acute distress and patient oriented x3 Resp: COMMON NORMALS: normal respiratory effort and clear to auscultation bilaterally AUSCULTATION: clear to auscultation bilaterally Cardio: COMMON NORMALS: regular rate and regular rhythm RATE: regular rate RHYTHM: regular rhythm OTHER: No lower extremity pitting edema but patient has significant lymphedema, 2 out of 6 systolic murmur best heard at the right upper sternal border. GI: COMMON NORMALS: Normal to inspection, nondistended, normoactive bowel sounds present, Soft to palpation and non-tender PALPATION: Yes Soft to palpation Neuro: COMMON NORMALS: patient oriented x3 and no focal motor deficits Urinary Catheter Management^: [place]: Cath Placed During This Visit: yes, but has since been removed by the nurse Reason for Continuing Indwelling Catheter: Accurate Measurement of Urinary Output in Critically Ill Patients Urinary Catheter Date of Insertion: 07/08/20 Urinary Catheter Time of Insertion: 05:40 Date Urinary Catheter Removed: 07/08/20 Time Urinary Catheter Discontinued: 04:45 Data : 07/18/20 04:03 07/18/20 04:03 A&P Assessment and plan (1) Acute respiratory failure with hypoxia: Secondary to community-acquired pneumonia Status: Acute (2) Atypical chest pain: Status: Acute (3) Aortic valve stenosis: Cardiology on consult Status: Acute Qualifiers: Cardiac valve disease etiology: nonrheumatic Qualified Code(s): I35.0 - Nonrheumatic aortic (valve) stenosis (4) Acute dyspnea: Status: Acute (5) Gram-positive bacteremia: Likely contamination but true infection cannot be ruled out especially in view of concerning findings of empyema. Status: Acute (6) Community acquired pneumonia: Present on admission. Concern for underlying empyema. Status: Acute Additional A&P Information Diastolic congestive heart failure exacerbation bumex, metolazone No active infarctive or ischemic changes on EKG, troponin with negative delta PE has been ruled out Microcytic anemia due to iron deficiency, most likely chronic secondary to gastritis. 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 Depending on her progress we will need to make decision regarding patient's disposition. Patient prefers to go home and reports that her 74-year-old mother will be staying with her. She does understand if she is too weak she may require long-term facility placement. She agrees. Continue monitoring hemoglobin. Platelets and hemoglobin appears to be stabilized now. Will avoid aspirin and anticoagulation at this point. Continue high-dose PPI. Attestations Medical Necessity Statement*: Patient with generalized weakness and severe aortic valve stenosis as well as anemia requires close inpatient monitoring and treatment until deemed safe for discharge. 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
--- NOTE | 2020-07-18 13:20 | PC.NURSE ---
Checked pt and she is sitting on the recliner at this time Noted pt she is talking to her self when check her. I asked pt who she is talking to. Pt stated, me, myself and I. Pt then stated that she sees a dog and her nephew Artemio out of her window. Asked pt if she's hearing voices right now, she denied. Asked pt if she feels like harming herself or others, she denied. Asked if she is depressed, she denied. Notified doctor regarding pt's hallucinations. Environment in pt's room is safe.
[2020-07-18] MEDS: levofloxacin-dextrose 5 % 750 MG/150 ML PREMIX 100 MG IV (16:29)
--- NOTE | 2020-07-18 17:05 | PM.PN ---
Subjective Subjective: Interval history: Denies any complaint status post coronary angiogram but did not show any significant stenosis. Medications: Reviewed: Yes Medication Review Details: Current Medications Acetaminophen (Acetaminophen 325 Mg Tablet) 650 mg PO Q6H PRN PRN Reason: MILD PAIN Last Admin: 07/16/20 01:21 Dose: 650 mg Documented by: Acetazolamide (Acetazolamide 250 Mg Tablet) 500 mg PO Q12H [facility] Last Admin: 07/15/20 21:39 Dose: 500 mg Documented by: Albuterol Sulfate (Albuterol 2.5 Mg/0.5 Ml Neb) 2.5 mg INHALATION Q4H.RESPIRATORY PRN PRN Reason: SHORTNESS OF BREATH Last Admin: 07/13/20 09:05 Dose: 2.5 mg Documented by: Albuterol/Ipratropium (Ipratropium-Albuterol 3 Ml Neb) 3 ml INHALATION Q6H.RESPIRATORY PRN PRN Reason: SHORTNESS OF BREATH Apixaban (Apixaban 5 Mg Tablet) 5 mg PO BID@ [facility] Last Admin: 07/05/20 07:15 Dose: 5 mg Documented by: Aspirin (Aspirin 81 Mg Ec Tablet) 81 mg PO DAILY [facility] Last Admin: 07/14/20 08:27 Dose: 81 mg Documented by: Atorvastatin Calcium (Atorvastatin 40 Mg Tablet) 20 mg PO DAILY@ [facility] Last Admin: 07/15/20 21:39 Dose: 20 mg Documented by: Bumetanide (Bumetanide 0.25 Mg/Ml Sdv 4 Ml) 1 mg IV Q24H [facility] Last Admin: 07/14/20 08:30 Dose: 1 mg Documented by: Bupropion HCl (Bupropion Sr (12 Hr) 150 Mg Tablet) 150 mg PO BID@ [facility] Last Admin: 07/16/20 05:17 Dose: 150 mg Documented by: Docusate Sodium (Docusate Sodium 100 Mg Capsule) 100 mg PO DAILY PRN PRN Reason: Constipation Last Admin: 07/13/20 14:53 Dose: 100 mg Documented by: Duloxetine HCl (Duloxetine 60 Mg Capsule) 60 mg PO DAILY@06 [facility] Last Admin: 07/16/20 05:17 Dose: 60 mg Documented by: Enoxaparin Sodium (Enoxaparin 30 Mg/0.3 Ml Syringe) 30 mg SUBCUT Q12H [facility] Last Admin: 07/12/20 06:18 Dose: 30 mg Documented by: Enoxaparin Sodium (Enoxaparin 120 Mg/0.8 Ml Syringe) 120 mg SUBCUT Q12H [facility] Last Admin: 07/12/20 06:18 Dose: 120 mg Documented by: Ferrous Sulfate (Ferrous Sulfate Ec 325 Mg Tablet) 325 mg PO BIDWM [facility] Last Admin: 07/15/20 18:27 Dose: Not Given Documented by: Gabapentin (Gabapentin 300 Mg Capsule) 300 mg PO BEDTIME@22 [facility] Last Admin: 07/15/20 21:39 Dose: 300 mg Documented by: Hydroxyzine HCl (Hydroxyzine 10 Mg Tablet) 10 mg PO Q8H PRN PRN Reason: ANXIETY Last Admin: 07/14/20 05:57 Dose: 10 mg Documented by: Levofloxacin/Dextrose (Levaquin-D5w) 750 mg in 150 mls @ 100 mls/hr IV Q24H [facility]; Protocol Vancomycin HCl 2,000 mg/ (Sodium Chloride) 500 mls @ 250 mls/hr IV Q24H [facility] Last Infusion: 07/15/20 15:53 Dose: Infused Documented by: Levothyroxine Sodium (Levothyroxine 100 Mcg Tablet) 100 mcg PO DAILY@06 [facility] Last Admin: 07/16/20 05:17 Dose: 100 mcg Documented by: Losartan Potassium (Losartan 50 Mg Tablet) 25 mg PO DAILY [facility] Last Admin: 07/14/20 08:27 Dose: 25 mg Documented by: Metolazone (Metolazone 5 Mg Tablet) 10 mg PO DAILY [facility] Last Admin: 07/12/20 08:01 Dose: 10 mg Documented by: Midodrine (Midodrine 5 Mg Tablet) 5 mg PO Q8H [facility] Last Admin: 07/16/20 05:17 Dose: 5 mg Documented by: Ondansetron HCl (Ondansetron 2 Mg/Ml Sdv 2 Ml) 4 mg IVP Q4H PRN PRN Reason: NAUSEA AND VOMITING Last Admin: 07/08/20 08:37 Dose: 4 mg Documented by: Pantoprazole Sodium (Pantoprazole Dr 40 Mg Tablet) 40 mg PO BID@, [facility] Last Admin: 07/16/20 05:19 Dose: 40 mg Documented by: Potassium Chloride (Potassium Chloride Er 20 Meq Tablet) 40 meq PO Q12H [facility] Last Admin: 07/15/20 21:39 Dose: 40 meq Documented by: Propranolol HCl (Propranolol 20 Mg Tablet) 10 mg PO BID [facility] Last Admin: 07/15/20 18:24 Dose: 10 mg Documented by: Fluticasone/Salmeterol (Fluticasone-Salmeterol 100-50 Diskus) 1 puff INHALATION BID.RESPIRATORY [facility] Last Admin: 07/15/20 20:14 Dose: Not Given Documented by: Spironolactone (Spironolactone 25 Mg Tablet) 25 mg PO DAILY@06 [facility] Last Admin: 07/16/20 05:18 Dose: 25 mg Documented by: Sucralfate (Sucralfate 1 Gm/10 Ml Oral Liq Udc) 1 gm PO AC&BEDTIME [facility] Last Admin: 07/15/20 21:42 Dose: 1 gm Documented by: Zinc Gluconate (Zinc Gluconate 50 Mg Tablet) 50 mg PO DAILY [facility] Last Admin: 07/14/20 08:27 Dose: 50 mg Documented by: Vitals/I&O/Wt Last Vital Signs Temp 98.2 F 07/18/20 14:55 Pulse 83 07/18/20 14:55 Resp 15 07/18/20 14:55 BP 119/83 07/18/20 14:55 Pulse Ox 96 07/18/20 14:55 07/18/20 07/18/20 07/18/20 06:59 14:59 22:59 Intake Total 240 / 240 Output Total 750 / 1650 800 / 800 Balance -750 / 320.167 -560 / -560 Physical Exam Narrative: EXAM NARRATIVE: GENERAL: Patient is alert, awake and oriented x3. NECK: No jugular vein distension. HEENT: No cyanosis. No icterus. No pallor. HEART: Regular S1 and S2. 2/6 sys murmur, rub or gallop. LUNGS: Clear to auscultate bilaterally. ABDOMEN: Soft, nontender and nondistended. Positive bowel sounds. No guarding, rebound or tenderness. CENTRAL NERVOUS SYSTEM: Grossly nonfocal. EXTREMITIES: Lower extremities wih 1+ edema bilaterally. Const: COMMON NORMALS: alert Resp: COMMON NORMALS: clear to auscultation bilaterally AUSCULTATION: clear to auscultation bilaterally Neuro: SENSORIUM/ORIENTATION: Yes alert Urinary Catheter Management^: [place]: Cath Placed During This Visit: yes, but has since been removed by the nurse Reason for Continuing Indwelling Catheter: Accurate Measurement of Urinary Output in Critically Ill Patients Urinary Catheter Date of Insertion: 07/08/20 Urinary Catheter Time of Insertion: 05:40 Date Urinary Catheter Removed: 07/08/20 Time Urinary Catheter Discontinued: 04:45 Data : 07/18/20 04:03 07/18/20 04:03 A&P Assessment and plan (1) Positive blood culture: Continue treatment as per medicine Status: Acute (2) Acute on chronic diastolic (congestive) heart failure: Well compensated. Continue medicine Status: Acute (3) Anemia: . Status: Acute Qualifiers: Anemia type: iron deficiency Iron deficiency anemia type: unspecified iron deficiency Qualified Code(s): D50.9 - Iron deficiency anemia, unspecified (4) Aortic valve stenosis: Severe aortic stenosis requires aortic valve replacement. Dr. Riddle will refer her for AVR. Status: Acute Qualifiers: Cardiac valve disease etiology: nonrheumatic Qualified Code(s): I35.0 - Nonrheumatic aortic (valve) stenosis (5) Hyperlipidemia: Continue on the current medications. Status: Acute Qualifiers: Hyperlipidemia type: mixed hyperlipidemia Qualified Code(s): E78.2 - Mixed hyperlipidemia (6) Hypertension: Stable and controlled continue meds Status: Acute Qualifiers: Hypertension type: essential hypertension Qualified Code(s): I10 - Essential (primary) hypertension (7) Atypical chest pain: No coronary artery disease noted on the coronary angiogram chest pain atypical Status: Acute Additional A&P Information Other problems are as outlined before. Sleep apnea Anemia, the hemoglobin seems to be stable Renal insufficiency, seems to be improving Possible pneumonia, currently afebrile Osteoarthritis After reviewing the LAMINE, further recommendations will be made. 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
--- NOTE | 2020-07-18 19:54 | PC.NURSE ---
Received report from FERNANDO Gaitan. Patient resting in bed. Patient talking in incomplete sentences. Wanting to move up to the next level in this place. Re-directed patient that she was still in the hospital and patient stated okay. Patient requires frequent re-direction and reminding her where she is. Patient appears forgetful at times and problems finding words and ideas.
[2020-07-18] MEDS: gabapentin 300 mg Capsule PO (21:11)
[2020-07-18] MEDS: atorvastatin 40 mg Tablet 20 MG PO (21:11)
[2020-07-18] MEDS: ARIPiprazole 10 mg Tablet 5 MG PO (21:11)
[2020-07-18] MEDS: PARoxetine 20 mg Tablet 10 MG PO (21:11)
--- NOTE | 2020-07-18 21:56 | PC.NURSE ---
Having trouble obtaining automatic blood pressure using [employer]. Obtained manual blood pressure 103/56. Patient denies any dizziness or lightheadedness. Patient is alert but confused at times. No distress observed.
[2020-07-19] VITALS (13 sets, daily range): BP systolic 78–125; BP diastolic 40–73; PULSE 71–89; RESP 18–30; TEMP 36.5–37.1; O2SAT 89–97
--- NOTE | 2020-07-19 02:51 | PC.NURSE ---
Patient reports feeling tired of being in bed. Assisted patient up to recliner. Patient expressed thanks. Call parker within reach.
[2020-07-19] MEDS: midodrine 5 mg TABLET PO (05:00)
[2020-07-19] MEDS: buPROPion SR (12 HR) 150 mg Tablet PO ×2 (05:00→21:50)
[2020-07-19] MEDS: levothyroxine 100 mcg Tablet PO (05:00)
[2020-07-19] MEDS: pantoprazole DR 40 mg Tablet PO ×2 (05:00→21:53)
[2020-07-19] MEDS: spironolactone 25 mg Tablet PO (05:00)
[2020-07-19] MEDS: duloxetine 60 mg Capsule PO (05:00)
[2020-07-19 05:44] LABS: Basophils # 0.1 10^3/uL (0.0-0.1); Basophils % 0.7 %; Eosinophils # 0.3 10^3/uL (0.0-0.8); Eosinophils % 3.7 %; Hematocrit 28.1 % (37.0-47.0); Hemoglobin 8.3 g/dL (11.5-15.3); Lymphocytes # 1.7 10^3/uL (0.8-4.8); Lymphocytes % 20.1 %; Mean Corpuscular HGB Conc 29.5 g/dL (30.0-36.0); Mean Corpuscular Hemoglobin 24.4 pg (28.0-34.0); Mean Corpuscular Volume 82.6 fL (81-99); Mean Platelet Volume 11.1 fL (7.4-10.4); Monocytes # 1.4 10^3/uL (0.2-0.9); Monocytes % 17.2 %; Neutrophils # 4.83 10^3/uL (1.8-7.7); Neutrophils % 57.9 %; Nucleated Red Blood Cells % 0 %; Platelet Count 241 10^3/cmm (130-400); Red Cell Distribution Width 21.1 % (12.1-15.1); White Blood Count 8.4 10^3/uL (4.0-10.0)
[2020-07-19 06:13] LABS: Alanine Aminotransferase 28 U/L (0-33); Albumin Level 2.7 g/dL (3.5-5.2); Alkaline Phosphatase 274 IU/L (35-105); Anion Gap 10.7 (5-19); Aspartate Amino Transferase 26 U/L (0-32); Blood Urea Nitrogen 31 mg/dL (6-20); Calcium 9.1 mg/dL (8.5-10.5); Carbon Dioxide 27 mmol/L (22-29); Chloride 103 mmol/L (98-107); Globulin 3.1 g/dL (1.3-4.6); Glomerular Filtration Rate 39.3 mL/min (90-130); Glucose 83 mg/dL (65-115); Magnesium 1.8 mg/dL (1.7-2.3); Osmolality Calculated 290 mOsm/kg (285-295); Potassium 3.7 mmol/L (3.5-5.1); Sodium 137 mmol/L (136-145); Total Bilirubin 0.6 mg/dL (0.15-1.2); Total Protein 5.8 g/dL (6.6-8.7)
[2020-07-19] MEDS: propranolol 20 mg Tablet 10 MG PO ×2 (08:32→17:47)
[2020-07-19] MEDS: zinc gluconate 50 mg Tablet PO (08:33)
[2020-07-19] MEDS: losartan 50 mg Tablet 25 MG PO (08:34)
[2020-07-19] MEDS: ferrous sulfate EC 325 mg Tablet PO (08:35)
[2020-07-19] MEDS: potassium chloride ER 20 mEq Tablet 40 MEQ PO ×2 (08:36→21:55)
--- NOTE | 2020-07-19 08:41 | PM.PN ---
Subjective Subjective: Interval history: Patient is somnolent this morning. Answers simple questions appropriately. Hemoglobin and platelets stable. Denies chest pain. Repeat blood cultures are negative. Her creatinine increased to 1.4 possibly related to cardiac cath. Vitals/I&O/Wt Last Vital Signs Temp 97.7 F 07/19/20 07:19 Pulse 72 07/19/20 07:19 Resp 20 H 07/19/20 07:19 BP 100/66 07/19/20 07:19 Pulse Ox 97 07/19/20 07:19 07/18/20 07/19/20 07/19/20 22:59 06:59 14:59 Intake Total 1010 / 1250 120 / 120 Output Total 300 / 1100 Balance 1010 / 450 -300 / 150 120 / 120 Physical Exam Const: COMMON NORMALS: no acute distress and patient oriented x3 Resp: COMMON NORMALS: normal respiratory effort and clear to auscultation bilaterally AUSCULTATION: clear to auscultation bilaterally Cardio: COMMON NORMALS: regular rate and regular rhythm RATE: regular rate RHYTHM: regular rhythm OTHER: No lower extremity pitting edema but patient has significant lymphedema, 2 out of 6 systolic murmur best heard at the right upper sternal border. GI: COMMON NORMALS: Normal to inspection, nondistended, normoactive bowel sounds present, Soft to palpation and non-tender PALPATION: Yes Soft to palpation Neuro: COMMON NORMALS: patient oriented x3 and no focal motor deficits Urinary Catheter Management^: [place]: Cath Placed During This Visit: yes, but has since been removed by the nurse Reason for Continuing Indwelling Catheter: Accurate Measurement of Urinary Output in Critically Ill Patients Urinary Catheter Date of Insertion: 07/08/20 Urinary Catheter Time of Insertion: 05:40 Date Urinary Catheter Removed: 07/08/20 Time Urinary Catheter Discontinued: 04:45 Data : 07/19/20 04:30 07/19/20 04:30 A&P Assessment and plan (1) Acute respiratory failure with hypoxia: Secondary to community-acquired pneumonia Status: Acute (2) Atypical chest pain: Status: Acute (3) Aortic valve stenosis: Cardiology on consult Status: Acute Qualifiers: Cardiac valve disease etiology: nonrheumatic Qualified Code(s): I35.0 - Nonrheumatic aortic (valve) stenosis (4) Acute dyspnea: Status: Acute (5) Gram-positive bacteremia: Likely contamination but true infection cannot be ruled out especially in view of concerning findings of empyema. Status: Acute (6) Community acquired pneumonia: Present on admission. Concern for underlying empyema. Status: Acute (7) Acute kidney injury: Status: Acute Additional A&P Information Diastolic congestive heart failure exacerbation bumex, metolazone No active infarctive or ischemic changes on EKG, troponin with negative delta PE has been ruled out Microcytic anemia due to iron deficiency, most likely chronic secondary to gastritis. 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 Will gently hydrate with LR and monitor urinary output. Continue holding Eliquis. Patient frequently somnolent in the morning and mental status improves as day progresses. We will reevaluate later this morning/afternoon. Attestations Medical Necessity Statement*: Patient with severe aortic stenosis and now with acute kidney injury requires close inpatient monitoring and treatment. 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
[2020-07-19] MEDS: lactated ringers 1,000 ML 50 ML IV (10:13)
--- NOTE | 2020-07-19 11:21 | CT_ITS ---
WS: [id number] CT HEAD TECHNIQUE: Noncontrast CT of the head obtained from the skullbase to the vertex. CLINICAL INFORMATION: altered mental status COMPARISON: None. DLP: 877.[address] scans at [facility] use at least one of these dose optimization techniques: automat ed exposure control; mA and/or kV adjustment per patient size (includes targeted exams where dose is matched to clinical indication); or iterative reconstruction. FINDINGS: No evidence of intracranial hemorrhage or mass effect. Ventricular system and basal cisterns are aguilera nt. Mild small vessel changes with mild parenchymal volume loss. No extra-axial fluid collections. No evidence of mass or mass effect. Normal chapin-white differentiation. Paranasal sinuses and mastoid air cells are well aerated. .Normal visualized soft tissues. Low-lying cerebellar tonsils unchanged. CT/CT head wo con* [id number] IMPRESSION: 1. No evidence of intracranial hemorrhage or mass effect. 2. Mild small vessel changes with mild parenchymal volume loss. 3. No acute intracranial findings.
--- NOTE | 2020-07-19 13:16 | PM.PN ---
Subjective Subjective: Interval history: Patient underwent cardiac catheterization over the weekend. She was found to have mild diffuse intimal abnormalities with no significant stenotic lesions. She had a transesophageal echocardiogram which revealed no evidence of any endocarditis. Moderately calcified aortic valve with severe stenosis Her BUN and creatinine went up since the coronary angiogram. Currently she seems to be stable. She still has significant dyspnea on exertion. Medications: Reviewed: Yes Medication Review Details: Current Medications Acetaminophen (Acetaminophen 325 Mg Tablet) 650 mg PO Q6H PRN PRN Reason: MILD PAIN Last Admin: 07/16/20 01:21 Dose: 650 mg Documented by: Acetazolamide (Acetazolamide 250 Mg Tablet) 500 mg PO Q12H VALDO Last Admin: 07/18/20 21:11 Dose: 500 mg Documented by: Al Hydrox/Mg Hydrox/Simethicone (Mqjv-Uxk-Mmkcpipan-Romeo 30 Ml Udc) 30 ml PO Q15M PRN PRN Reason: INDIGESTION Al Hydrox/Mg Hydrox/Simethicone (Czla-Kak-Mtwpxygtc-Romeo 30 Ml Udc) 30 ml PO Q15M PRN PRN Reason: INDIGESTION Albuterol Sulfate (Albuterol 2.5 Mg/0.5 Ml Neb) 2.5 mg INHALATION Q4H.RESPIRATORY PRN PRN Reason: SHORTNESS OF BREATH Last Admin: 07/18/20 10:01 Dose: 2.5 mg Documented by: Albuterol/Ipratropium (Ipratropium-Albuterol 3 Ml Neb) 3 ml INHALATION Q6H.RESPIRATORY PRN PRN Reason: SHORTNESS OF BREATH Aripiprazole (Aripiprazole 10 Mg Tablet) 5 mg PO DAILY@22 [facility] Last Admin: 07/18/20 21:11 Dose: 5 mg Documented by: Atorvastatin Calcium (Atorvastatin 40 Mg Tablet) 20 mg PO DAILY@22 [facility] Last Admin: 07/18/20 21:11 Dose: 20 mg Documented by: Bumetanide (Bumetanide 0.25 Mg/Ml Sdv 4 Ml) 1 mg IV Q24H [facility] Last Admin: 07/18/20 08:00 Dose: 1 mg Documented by: Bupropion HCl (Bupropion Sr (12 Hr) 150 Mg Tablet) 150 mg PO BID@ [facility] Last Admin: 07/19/20 05:00 Dose: 150 mg Documented by: Docusate Sodium (Docusate Sodium 100 Mg Capsule) 100 mg PO DAILY PRN PRN Reason: Constipation Last Admin: 07/13/20 14:53 Dose: 100 mg Documented by: Duloxetine HCl (Duloxetine 60 Mg Capsule) 60 mg PO DAILY@06 [facility] Last Admin: 07/19/20 05:00 Dose: 60 mg Documented by: Enoxaparin Sodium (Enoxaparin 40 Mg/0.4 Ml Syringe) 40 mg SUBCUT Q24H [facility] Last Admin: 07/16/20 20:19 Dose: 40 mg Documented by: Ferrous Sulfate (Ferrous Sulfate Ec 325 Mg Tablet) 325 mg PO EVERY OTHER DAY [facility] Last Admin: 07/19/20 08:35 Dose: 325 mg Documented by: Gabapentin (Gabapentin 300 Mg Capsule) 300 mg PO BEDTIME@22 [facility] Last Admin: 07/18/20 21:11 Dose: 300 mg Documented by: Hydroxyzine HCl (Hydroxyzine 10 Mg Tablet) 10 mg PO Q8H PRN PRN Reason: ANXIETY Last Admin: 07/14/20 05:57 Dose: 10 mg Documented by: Levofloxacin/Dextrose (Levaquin-D5w) 750 mg in 150 mls @ 100 mls/hr IV Q24H [facility]; Protocol Last Infusion: 07/18/20 18:37 Dose: Infused Documented by: Vancomycin HCl 2,000 mg/ (Sodium Chloride) 500 mls @ 250 mls/hr IV Q24H [facility] Last Infusion: 07/18/20 20:40 Dose: Infused Documented by: Lactated Ringer's (Lactated Ringers) 1,000 mls @ 50 mls/hr IV .Q20H [facility] Last Admin: 07/19/20 10:13 Dose: 50 mls/hr Documented by: Levothyroxine Sodium (Levothyroxine 100 Mcg Tablet) 100 mcg PO DAILY@06 [facility] Last Admin: 07/19/20 05:00 Dose: 100 mcg Documented by: Magnesium Hydroxide (Magnesium Hydroxide 30 Ml Udc) 30 ml PO DAILY PRN PRN Reason: CONSTIPATION Metolazone (Metolazone 5 Mg Tablet) 10 mg PO DAILY [facility] Last Admin: 07/18/20 08:02 Dose: 10 mg Documented by: Midodrine (Midodrine 5 Mg Tablet) 5 mg PO Q8H [facility] Last Admin: 07/19/20 05:00 Dose: 5 mg Documented by: Naloxone HCl (Naloxone 0.4 Mg/Ml Sdv) 0.1 mg IVP Q2M PRN PRN Reason: RESPIRATORY RATE < 8/MIN Nitroglycerin (Nitroglycerin 0.4 Mg Sublingual Tablet) 0.4 mg SUBLINGUAL Q5M PRN PRN Reason: CHEST PAIN Ondansetron HCl (Ondansetron 2 Mg/Ml Sdv 2 Ml) 4 mg IVP Q4H PRN PRN Reason: NAUSEA AND VOMITING Last Admin: 07/08/20 08:37 Dose: 4 mg Documented by: Pantoprazole Sodium (Pantoprazole Dr 40 Mg Tablet) 40 mg PO BID@ [facility] Last Admin: 07/19/20 05:00 Dose: 40 mg Documented by: Paroxetine HCl (Paroxetine 20 Mg Tablet) 10 mg PO BEDTIME@ [facility] Last Admin: 07/18/20 21:11 Dose: 10 mg Documented by: Potassium Chloride (Potassium Chloride Er 20 Meq Tablet) 40 meq PO Q12H [facility] Last Admin: 07/19/20 08:36 Dose: 40 meq Documented by: Propranolol HCl (Propranolol 20 Mg Tablet) 10 mg PO BID [facility] Last Admin: 07/19/20 08:32 Dose: 10 mg Documented by: Fluticasone/Salmeterol (Fluticasone-Salmeterol 100-50 Diskus) 1 puff INHALATION BID.RESPIRATORY [facility] Last Admin: 07/19/20 09:50 Dose: 1 puff Documented by: Spironolactone (Spironolactone 25 Mg Tablet) 25 mg PO DAILY@06 [facility] Last Admin: 07/19/20 05:00 Dose: 25 mg Documented by: Zinc Gluconate (Zinc Gluconate 50 Mg Tablet) 50 mg PO DAILY [facility] Last Admin: 07/19/20 08:33 Dose: 50 mg Documented by: Vitals/I&O/Wt Last Vital Signs Temp 98.7 F 07/19/20 11:20 Pulse 89 07/19/20 11:20 Resp 19 H 07/19/20 11:20 BP 114/73 07/19/20 11:20 Pulse Ox 89 L 07/19/20 11:20 07/18/20 07/19/20 07/19/20 22:59 06:59 14:59 Intake Total 1010 / 1250 120 / 120 Output Total 300 / 1100 Balance 1010 / 450 -300 / 150 120 / 120 Physical Exam Narrative: EXAM NARRATIVE: GENERAL: The patient is alert and oriented times three. Not in any acute distress. Morbidly obese HEENT: N patient denies any fever, chills or cough. Moderate pallor, no icterus or lymphadenopathy.Oral cavity: There are no mucous membrane lesions. NECK: Trachea appears to be central. No masses noted. No JVD or thyromegaly appreciated. RESPIRATORY: Chest is symmetrical. No intercostals muscle retraction or any accessory muscle activation. There is no chest wall tenderness. Breath sounds are heard bilaterally. No rales or rhonchi heard. No evidence of any consolidation. BREASTS: Deferred. HEART: The heart sounds are normal. No S3 or S4. Ejection systolic murmur of grade 4/6 in the aortic area. No diastolic murmurs ABDOMEN: No vessel pulsations or distention. No tenderness. No organomegaly appreciated. Bowel sounds are normally heard. : Deferred. RECTAL: Deferred. LYMPHATIC: No lymphadenopathy noted in the neck or groin. EXTREMITIES: Chronic lymph edema both lower extremity with a significant improvement. Features of stasis dermatitis MUSCULOSKELETAL: No acute joint deformities or swelling SKIN: There are no significant rashes or ecchymosis NEUROPSYCHIATRIC: The patient is alert and oriented x3. Appears to be in a good mood. No tremors or rigidity noted. Urinary Catheter Management^: [place]: Cath Placed During This Visit: yes, but has since been removed by the nurse Reason for Continuing Indwelling Catheter: Accurate Measurement of Urinary Output in Critically Ill Patients Urinary Catheter Date of Insertion: 07/08/20 Urinary Catheter Time of Insertion: 05:40 Date Urinary Catheter Removed: 07/08/20 Time Urinary Catheter Discontinued: 04:45 Data : 07/20/20 08:11 07/20/20 08:11 Other Labs: LAMINE on 07/16/2020 No intracardiac masses or vegetations. Severe aortic valve stenosis with moderate diffuse calcification in the leaflet margins. Peak velocity of 4.18 m/s with a peak gradient of 74 and a mean gradient of 37 mmHg. Calculated valve area was 0.88 cm squared.(The aortic and the LV outflow tract Doppler studies were performed by [facility]) Mild to moderate aortic and mild mitral valve regurgitation. Trace to mild tricuspid regurgitation Mild concentric left ventricular hypertrophy with normal ejection fraction. Mildly dilated left atrium. Possible small pericardial effusion. No intracardiac masses. No similar previous studies are available for comparison A&P Assessment and plan (1) Positive blood culture: The anemia seems to be stable. No evidence of any active bleed based on the endoscopy studies. Status: Acute (2) Acute on chronic diastolic (congestive) heart failure: Patient seems to have recurrent decompensated diastolic heart failure. Most likely the aortic valve stenosis might be a contributing factor. Her sleep apnea, anemia and possible pneumonia are contributing factors as well. Currently the heart failure is compensated. She is on diuretics on a as needed basis Status: Acute (3) Anemia: Management as per the primary. The hemoglobin seems to be stable. Discussed with Dr. Little about anticoagulation. Dr. Little is managing the anticoagulation. Status: Acute Qualifiers: Anemia type: iron deficiency Iron deficiency anemia type: unspecified iron deficiency Qualified Code(s): D50.9 - Iron deficiency anemia, unspecified (4) Aortic valve stenosis: In view of the recurrent decompensated diastolic heart failure, she may benefit from aortic valve intervention. This was discussed with the patient. Because of her morbid obesity, she may not be an ideal candidate for open heart surgery. I will be discussing her case with an art therapist in [place] to consider TAVR. Status: Acute Qualifiers: Cardiac valve disease etiology: nonrheumatic Qualified Code(s): I35.0 - Nonrheumatic aortic (valve) stenosis (5) Hyperlipidemia: Continue on the current medications. Status: Acute Qualifiers: Hyperlipidemia type: mixed hyperlipidemia Qualified Code(s): E78.2 - Mixed hyperlipidemia (6) Hypertension: Currently normotensive. Continue on the current medications. Status: Acute Qualifiers: Hypertension type: essential hypertension Qualified Code(s): I10 - Essential (primary) hypertension (7) Atypical chest pain: Patient has chronic atypical chest pains, currently stable. Status: Acute Additional A&P Information Other problems are as outlined before. Sleep apnea Renal insufficiency, with some acute exacerbation possible related to contrast Possible pneumonia, currently afebrile Osteoarthritis I discussed with the patient about the catheter-based option for the aortic valve replacement. she is willing to go for it. However she is wanting to go home first and then go to [place] for the procedure. Attestations Medical Necessity Statement*: Disposition as per the primary Coding Level of Care Code Acute Science Consultant for Chg Fwd Diagnoses Positive blood culture R78.81 Acute on chronic diastolic (congestive) heart failure I50.33 Anemia D50.9 Anemia type: iron deficiency Iron deficiency anemia type: unspecified iron deficiency Aortic valve stenosis I35.0 Cardiac valve disease etiology: nonrheumatic Hyperlipidemia E78.2 Hyperlipidemia type: mixed hyperlipidemia Hypertension I10 Hypertension type: essential hypertension Atypical chest pain R07.89
[2020-07-19] MEDS: levofloxacin-dextrose 5 % 750 MG/150 ML PREMIX 100 MG IV (17:48)
[2020-07-19] MEDS: PARoxetine 20 mg Tablet 10 MG PO (21:50)
[2020-07-19] MEDS: gabapentin 300 mg Capsule PO (21:55)
[2020-07-19] MEDS: ARIPiprazole 10 mg Tablet 5 MG PO (21:56)
[2020-07-19] MEDS: atorvastatin 40 mg Tablet 20 MG PO (22:05)
[2020-07-20] VITALS (14 sets, daily range): BP systolic 93–144; BP diastolic 49–79; PULSE 73–92; RESP 18–20; TEMP 36.4–37.1; O2SAT 92–95
--- NOTE | 2020-07-20 00:10 | PM.EVENT ---
Event Note Event Note: Notified patient's blood pressures have been running 70s to 80s systolic. They were checked manually. She has severe aortic stenosis. She underwent cardiac catheterization and had some acute kidney injury. She had been on some diuretics which were held and she has been receiving low volume IV fluids today. ARB has been held. She does remain on propanolol 10 mg twice a day and received it this evening. She is sleepy presently. Lungs without rales noted. We will give a extra bit of fluid over the next couple of hours and see how her blood pressure responds. Nursing staff to monitor clinically for any signs of volume overload. Review of the last few nights shows that she has been dropping her pressures in the middle the night but tonight's are a bit lower than what they had been. We will continue to monitor.
[2020-07-20] MEDS: sodium chloride 0.9% 250 ML 100 ML IV (00:37)
[2020-07-20] MEDS: duloxetine 60 mg Capsule PO (05:22)
[2020-07-20] MEDS: buPROPion SR (12 HR) 150 mg Tablet PO (05:22)
[2020-07-20] MEDS: levothyroxine 100 mcg Tablet PO (05:23)
[2020-07-20] MEDS: pantoprazole DR 40 mg Tablet PO (05:23)
[2020-07-20] MEDS: zinc gluconate 50 mg Tablet PO (08:23)
[2020-07-20] MEDS: potassium chloride ER 20 mEq Tablet 40 MEQ PO (08:23)
[2020-07-20 08:57] LABS: Basophils % 0.4 %; Eosinophils # 0.3 10^3/uL (0.0-0.8); Eosinophils % 3.5 %; Hematocrit 25.7 % (37.0-47.0); Hemoglobin 7.8 g/dL (11.5-15.3); Lymphocytes # 1.3 10^3/uL (0.8-4.8); Lymphocytes % 17.5 %; Mean Corpuscular HGB Conc 30.4 g/dL (30.0-36.0); Mean Corpuscular Hemoglobin 24.6 pg (28.0-34.0); Mean Corpuscular Volume 81.1 fL (81-99); Mean Platelet Volume 11.3 fL (7.4-10.4); Monocytes # 1.1 10^3/uL (0.2-0.9); Monocytes % 15.4 %; Neutrophils % 62.9 %; Nucleated Red Blood Cells % 0 %; Platelet Count 211 10^3/cmm (130-400); Red Blood Count 3.17 10^6/uL (4.1-5.3); White Blood Count 7.2 10^3/uL (4.0-10.0)
[2020-07-20 09:24] LABS: Alanine Aminotransferase 24 U/L (0-33); Albumin Level 2.7 g/dL (3.5-5.2); Alkaline Phosphatase 270 IU/L (35-105); Anion Gap 9.9 (5-19); Aspartate Amino Transferase 23 U/L (0-32); Blood Urea Nitrogen 33 mg/dL (6-20); Carbon Dioxide 26 mmol/L (22-29); Chloride 106 mmol/L (98-107); Globulin 2.9 g/dL (1.3-4.6); Glomerular Filtration Rate 42.8 mL/min (90-130); Glucose 77 mg/dL (65-115); Osmolality Calculated 292 mOsm/kg (285-295); Potassium 3.9 mmol/L (3.5-5.1); Sodium 138 mmol/L (136-145); Total Bilirubin 0.7 mg/dL (0.15-1.2); Total Protein 5.6 g/dL (6.6-8.7)
--- NOTE | 2020-07-20 11:34 | PM.DCS ---
Discharge Providers Date of Admission: 07/05/20 14:24 Date of Discharge: July 20, 2020 Attending Provider at Admission: Aniyah Cortes MD Attending Provider at Discharge: Ismael Little MD Primary Care Provider: Liza Davila NP Diagnoses at Discharge Discharge Diagnosis (1) Positive blood culture: Status: Acute Permanent problem details: Had adequate antibiotic treatment. (2) Acute on chronic diastolic (congestive) heart failure: Status: Acute Permanent problem details: Secondary to severe aortic stenosis (3) Anemia: Status: Acute Qualifiers: Anemia type: iron deficiency Iron deficiency anemia type: unspecified iron deficiency Qualified Code(s): D50.9 - Iron deficiency anemia, unspecified (4) Aortic valve stenosis: Status: Acute Permanent problem details: Severe. Qualifiers: Cardiac valve disease etiology: nonrheumatic Qualified Code(s): I35.0 - Nonrheumatic aortic (valve) stenosis (5) Hyperlipidemia: Status: Acute Qualifiers: Hyperlipidemia type: mixed hyperlipidemia Qualified Code(s): E78.2 - Mixed hyperlipidemia (6) Hypertension: Status: Acute Qualifiers: Hypertension type: essential hypertension Qualified Code(s): I10 - Essential (primary) hypertension (7) Atypical chest pain: Status: Acute (8) Gastritis: Status: Acute (9) Upper GI bleed: Status: Acute (10) Anemia: Status: Acute (11) Morbid obesity with BMI of 50.0-59.9, adult: Status: Acute Reason for Visit Reason for Visit: DIFF BREATHING Hospital Course Hospital Course Patient presented with dyspnea and acute diastolic heart failure which felt to be related to severe aortic stenosis. Patient was noted to have positive multibacterial blood cultures which felt to be a contamination but patient was still treated with antibiotics as true bacterial infection cannot be completely ruled out. There was concern for empyema on imaging and I have discussed with Dr. Ho to see patient after she is discharged. This does not appear to be a true bacterial infection but I think outpatient follow-up with cardiothoracic surgeon and monitoring is necessary. She underwent LAMINE showing no evidence of endocarditis. She underwent coronary angiography showing no evidence of coronary artery disease requiring intervention. Most of her symptoms felt to be related to severe aortic stenosis. She has been somewhat hypotensive and I have discussed with Dr. Riddle this morning and we will go ahead and discontinue losartan as well as propranolol. We will continue spironolactone and potassium as she was taking prior to admission. I will request lab work next Sunday with results sent to primary care physician for evaluation. I also would like to mention that the patient became somewhat confused after coronary angiogram. This felt to be related to medications used for procedure, Versed and fentanyl. Initially MRI was requested to make sure patient had no stroke but unfortunately patient cannot fit into table given her weight. Patient showed no evidence of focal neurological findings. Patient gradually improved and this morning reports back to her normal baseline. She denies shortness of breath or chest pain. She denies abdominal pain or problems with bowel movement. Her oral intake is improving. Her kidney function is also getting better. We will perform bladder scan prior to discharge to make sure she is not having any obstructive process. Patient noted to have anemia and had upper endoscopy performed showing evidence of gastritis. Slow GI bleed suspected therefore Protonix was increased to twice daily. At this point I will hold Eliquis for 1 week and let patient's primary care physician to evaluate lab work next Sunday and make decision regarding restarting. Smaller dose can be considered 2.50 twice daily. Risks and benefits of anticoagulation were discussed with patient and she agrees with plan. Dr. Riddle is arranging outpatient follow-up with Dr. Sousa for evaluation for TAVR. Overall patient has multiple medical problems and her long-term prognosis is poor. Physical Exam Narrative: EXAM NARRATIVE: Patient's lungs are clear. Heart is irregularly irregular. She has no lower extremity edema but has severe lipoedema and lymphedema. Urinary Catheter Management^: [place]: Cath Placed During This Visit: yes, but has since been removed by the nurse Reason for Continuing Indwelling Catheter: Assist Healing of Perineal & Sacral Wounds- Incontinent Patients Urinary Catheter Date of Insertion: 07/08/20 Urinary Catheter Time of Insertion: 05:40 Date Urinary Catheter Removed: 07/08/20 Time Urinary Catheter Discontinued: 04:45 Discharge Data Data Completed and Pending: Completed Studies During Hospitalization Category Date Time Status CT angio chest PE protcl 84998 Urge nt Cat Scan 07/03/20 01:[address] chest wo con 7 1250 Routine Cat Scan 07/06/20 08:[address] head wo con* 7 0450 Routine Cat Scan 07/19/20 11:21 Completed XR chest 1V vaishali ble 25508 Routine Exams 07/06/20 07:00 Completed XR chest 1V vaishali ble 88921 Routine Exams 07/07/20 07:00 Completed XR chest 1V vaishali ble 78120 Routine Exams 07/08/20 07:00 Completed XR chest 1V vaishali ble 35855 Routine Exams 07/09/20 07:00 Completed XR chest 1V vaishali ble 21956 Routine Exams 07/10/20 07:00 Completed XR chest 1V vaishali ble 99757 Routine Exams 07/12/20 07:00 Completed XR chest 1V vaishali ble 76990 Stat Exams 07/02/20 23:08 Completed XR shoulder RT mi n 2V* 38104 Urgent Exams 07/02/20 23:13 Completed Pathology: Surgic al [PTH] Routine Pth 07/15/20 11:53 Completed CV echo complete* 61249 Routine Ultrasound 07/03/20 10:12 Completed CV echo transesop hageal 52344 Routi ne Ultrasound 07/16/20 11:00 Com[place] chest 41634 Ro utine Ultrasound 07/06/20 08:58 Completed Pending at discharge Category Date Time 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 request for service Routin e Exams 07/17/20 10:00 Taken Blood Culture Sta t Lab 07/15/20 12:16 Results Complete Blood Co unt w/Auto AM LABS Lab 07/21/20 04:00 Ordered Complete Blood Co unt w/Auto AM LABS Lab 07/22/20 04:00 Ordered Complete Blood Co unt w/Auto AM LABS Lab 07/23/20 04:00 Ordered Comprehensive Met abolic Panel AM LA BS Lab 07/21/20 04:00 Ordered Comprehensive Met abolic Panel AM LA BS Lab 07/22/20 04:00 Ordered Comprehensive Met abolic Panel AM LA BS Lab 07/23/20 04:00 Ordered Magnesium AM LABS Lab 07/21/20 04:00 Ordered Magnesium AM LABS Lab 07/22/20 04:00 Ordered Magnesium AM LABS Lab 07/23/20 04:00 Ordered Sputum Culture an d Gram Stain Stat Lab 07/06/20 11:16 Uncollected Vancomycin Trough Timed Lab 07/20/20 17:00 Ordered Labs from last 24 hours 07/20/20 07/20/20 08:11 08:11 WBC 7.2 RBC 3.17 L Hgb 7.8 L Hct 25.7 L MCV 81.1 MCH 24.6 L MCHC 30.4 RDW 21.0 H Plt Count 211 MPV 11.3 H Neut % (Auto) 62.9 Lymph % (Auto) 17.5 [place] % (Auto) 15.4 Eos % (Auto) 3.5 Baso % (Auto) 0.4 Neut # (Auto) 4.50 Lymph # (Auto) 1.3 [place] # (Auto) 1.1 H Eos # (Auto) 0.3 Baso # (Auto) 0.0 Nucleated RBC % (a uto) 0 Nucleated RBCs # 0.0 Sodium 138 Potassium 3.9 Chloride 106 Carbon Dioxide 26 Anion Gap 9.9 BUN 33 H Creatinine 1.3 H GFR Calculation 42.8 L Glucose 77 Calculated Osmolal ity 292 Calcium 9.0 Total Bilirubin 0.7 AST 23 ALT 24 Alkaline Phosphata se 270 H Total Protein 5.6 L Albumin 2.7 L Globulin 2.9 Vitals: Last Vital Signs Temp 97.6 F 07/20/20 07:52 Pulse 75 07/20/20 08:30 Resp 18 07/20/20 08:30 BP 108/65 07/20/20 07:52 Pulse Ox 93 07/20/20 08:30 Discharge Plan Discharge Patient Disposition: Home Health Service Condition: Stable Prescriptions: New pantoprazole 40 mg Tablet,Delayed Release (Dr/Ec) 40 mg PO BID Qty: 60 RF: 0 ferrous sulfate 325 mg (65 mg iron) Tablet,Delayed Release (Dr/Ec) 325 mg PO EVERY OTHER DAY Qty: 60 RF: 0 Continued gabapentin 300 mg capsule 300 mg PO BEDTIME@22 RF: 0 levothyroxine 100 mcg capsule 100 mcg PO DAILY@06 RF: 0 montelukast [Singulair] 10 mg tablet 10 mg PO DAILY@22 RF: 0 spironolactone 25 mg tablet 25 mg PO DAILY@06 RF: 0 albuterol sulfate 90 mcg/actuation HFA aerosol inhaler 2 puff INHALATION Q6H PRN (Reason: Shortness Of Breath) RF: 0 loratadine 10 mg capsule 10 mg PO DAILY@06 RF: 0 zonisamide 100 mg capsule See Rx Instructions .ROUTE .COMPLEX Qty: 540 RF: 1 baclofen 10 mg Tablet 10 mg PO TID PRN (Reason: Muscle Spasm) RF: 0 paroxetine HCl [Paxil] 10 mg tablet 10 mg PO BEDTIME@22 RF: 0 aripiprazole [Abilify] 5 mg tablet 5 mg PO DAILY@22 RF: 0 rosuvastatin [Crestor] 40 mg Tablet 40 mg PO DAILY@22 RF: 0 albuterol sulfate 2.5 mg /3 mL (0.083 %) solution for nebulization 2.5 mg inhalation Q6H PRN (Reason: Shortness Of Breath) RF: 0 Senexon-S 8.6-50 mg tablet 1 tab PO DAILY PRN (Reason: Constipation) RF: 0 simvastatin 40 mg tablet 40 mg PO DAILY RF: 0 Klor-Con M20 20 mEq tablet,ER particles/crystals 20 meq PO BID RF: 0 Nitrostat 0.4 mg Tablet, Sublingual 0.4 mg SUBLINGUAL Q5M PRN (Reason: Chest Pain) RF: 0 fluticasone propionate 50 mcg/actuation spray,suspension 1 - 2 spray INTRANASAL DAILY PRN (Reason: unknown) RF: 0 bupropion HCl 150 mg tablet sustained-release 12 hr 150 mg PO BID@ RF: 0 oxycodone-acetaminophen 5-325 mg Tablet 1 tab PO Q4H PRN (Reason: Pain) RF: 0 Discontinued losartan 25 mg tablet 25 mg PO DAILY Qty: 90 RF: 3 Eliquis 5 mg tablet 5 mg PO BID@ RF: 0 propranolol 10 mg tablet 10 mg PO BID RF: 0 omeprazole 20 mg capsule,delayed release(DR/EC) 20 mg PO BID@ RF: 0 Discharge Orders: Discharge Order (Routine); Ordered 07/20/20 Ordered By: Ismael Little Other Ambulatory Orders: Complete Blood Count w/Auto (Routine) Timeframe: 20200726 Location: Determined by Patient Ordered By: Ismael Little Comprehensive Metabolic Panel (Routine) Timeframe: 20200726 Facility: [facility] - Location: Lab - Main Lab Ordered By: Ismael Little Referrals: [facility] ([facility]) [Outside] Liza Davila NP [Primary Care Provider] - 4-7 days Bacilio Riddle MD [Physician] - 08/10/20 Callum Ho MD [Physician] - 2 weeks Lorraine Gleason FNP [Nurse Practitioner] - 1 week Discharge Diet: Usual diet Discharge Activity: Increase activity as tolerated Patient Instructions: Left Heart Catheterization (DC), Right Heart Catheterization (DC), Transesophageal Echocardiogram (DC) Activity Restrictions/Additional Instructions: Please call your doctor or present to emergency department if your condition worsens or you develop diarrhea, lightheadedness, fatigue or see blood in your stool or black stool. Please follow-up with your primary care physician as well as Dr. Riddle's office. Records are being sent to Dr. Sousa to evaluate you for aortic valve surgery/TAVR Discharge Attestations Time Spent in Discharge Care*: greater than 30 min Quality Metrics Clinical Quality Measures During this hospital stay, did patient experience: None Coding Level of Care Code Acute Medical Records Assistant for Chg Fwd Diagnoses Positive blood culture R78.81 Acute on chronic diastolic (congestive) heart failure I50.33 Anemia D50.9 Anemia type: iron deficiency Iron deficiency anemia type: unspecified iron deficiency Aortic valve stenosis I35.0 Cardiac valve disease etiology: nonrheumatic Hyperlipidemia E78.2 Hyperlipidemia type: mixed hyperlipidemia Hypertension I10 Hypertension type: essential hypertension Atypical chest pain R07.89 Gastritis K29.70 Upper GI bleed K92.2 Anemia D64.9 Morbid obesity with BMI of 50.0-59.9, adult E66.01; Z68.43
--- NOTE | 2020-07-20 11:49 | PC.NURSE ---
pt blood pressure 100/63. notified and propranolol held.
[2020-07-20] MEDS: lactated ringers 1,000 ML 50 ML IV (13:10)
--- NOTE | 2020-07-20 13:23 | P.PN_ITS ---
Subjective Subjective: Interval history: Patient denies any chest pain. He seems to be drowsy he continues to have dyspnea on exertion. Her hemoglobin also seems to be dropping. No significant arrhythmias on the monitor. She is scheduled for MRI of the brain today. Denies any fever or chills. No cough. Medications: Reviewed: Yes Medication Review Details: Current Medications Acetaminophen (Acetaminophen 325 Mg Tablet) 650 mg PO Q6H PRN PRN Reason: MILD PAIN Last Admin: 07/16/20 01:21 Dose: 650 mg Documented by: Acetazolamide (Acetazolamide 250 Mg Tablet) 500 mg PO Q12H [facility] Last Admin: 07/18/20 21:11 Dose: 500 mg Documented by: Al Hydrox/Mg Hydrox/Simethicone (Nuds-Sik-Roqnusbrm-Romeo 30 Ml Udc) 30 ml PO Q15M PRN PRN Reason: INDIGESTION Albuterol Sulfate (Albuterol 2.5 Mg/0.5 Ml Neb) 2.5 mg INHALATION Q4H.RESPIRATORY PRN PRN Reason: SHORTNESS OF BREATH Last Admin: 07/18/20 10:01 Dose: 2.5 mg Documented by: Albuterol/Ipratropium (Ipratropium-Albuterol 3 Ml Neb) 3 ml INHALATION Q6H.RESPIRATORY PRN PRN Reason: SHORTNESS OF BREATH Aripiprazole (Aripiprazole 10 Mg Tablet) 5 mg PO DAILY@ [facility] Last Admin: 07/19/20 21:56 Dose: 5 mg Documented by: Atorvastatin Calcium (Atorvastatin 40 Mg Tablet) 20 mg PO DAILY@ [facility] Last Admin: 07/19/20 22:05 Dose: 20 mg Documented by: Bumetanide (Bumetanide 0.25 Mg/Ml Sdv 4 Ml) 1 mg IV Q24H [facility] Last Admin: 07/18/20 08:00 Dose: 1 mg Documented by: Bupropion HCl (Bupropion Sr (12 Hr) 150 Mg Tablet) 150 mg PO BID@ [facility] Last Admin: 07/20/20 05:22 Dose: 150 mg Documented by: Docusate Sodium (Docusate Sodium 100 Mg Capsule) 100 mg PO DAILY PRN PRN Reason: Constipation Last Admin: 07/13/20 14:53 Dose: 100 mg Documented by: Duloxetine HCl (Duloxetine 60 Mg Capsule) 60 mg PO DAILY@ [facility] Last Admin: 07/20/20 05:22 Dose: 60 mg Documented by: Enoxaparin Sodium (Enoxaparin 40 Mg/0.4 Ml Syringe) 40 mg SUBCUT Q24H [facility] Last Admin: 07/16/20 20:19 Dose: 40 mg Documented by: Ferrous Sulfate (Ferrous Sulfate Ec 325 Mg Tablet) 325 mg PO EVERY OTHER DAY [facility] Last Admin: 07/19/20 08:35 Dose: 325 mg Documented by: Gabapentin (Gabapentin 300 Mg Capsule) 300 mg PO BEDTIME@22 [facility] Last Admin: 07/19/20 21:55 Dose: 300 mg Documented by: Hydroxyzine HCl (Hydroxyzine 10 Mg Tablet) 10 mg PO Q8H PRN PRN Reason: ANXIETY Last Admin: 07/14/20 05:57 Dose: 10 mg Documented by: Levofloxacin/Dextrose (Levaquin-D5w) 750 mg in 150 mls @ 100 mls/hr IV Q24H [facility]; Protocol Last Infusion: 07/19/20 21:43 Dose: Infused Documented by: Vancomycin HCl 2,000 mg/ (Sodium Chloride) 500 mls @ 250 mls/hr IV Q24H [facility] Last Infusion: 07/19/20 21:43 Dose: Infused Documented by: Lactated Ringer's (Lactated Ringers) 1,000 mls @ 50 mls/hr IV .Q20H [facility] Last Admin: 07/20/20 13:10 Dose: 50 mls/hr Documented by: Levothyroxine Sodium (Levothyroxine 100 Mcg Tablet) 100 mcg PO DAILY@06 [facility] Last Admin: 07/20/20 05:23 Dose: 100 mcg Documented by: Magnesium Hydroxide (Magnesium Hydroxide 30 Ml Udc) 30 ml PO DAILY PRN PRN Reason: CONSTIPATION Metolazone (Metolazone 5 Mg Tablet) 10 mg PO DAILY [facility] Last Admin: 07/18/20 08:02 Dose: 10 mg Documented by: Midodrine (Midodrine 5 Mg Tablet) 5 mg PO Q8H [facility] Last Admin: 07/19/20 05:00 Dose: 5 mg Documented by: Naloxone HCl (Naloxone 0.4 Mg/Ml Sdv) 0.1 mg IVP Q2M PRN PRN Reason: RESPIRATORY RATE < 8/MIN Nitroglycerin (Nitroglycerin 0.4 Mg Sublingual Tablet) 0.4 mg SUBLINGUAL Q5M PRN PRN Reason: CHEST PAIN Ondansetron HCl (Ondansetron 2 Mg/Ml Sdv 2 Ml) 4 mg IVP Q4H PRN PRN Reason: NAUSEA AND VOMITING Last Admin: 07/08/20 08:37 Dose: 4 mg Documented by: Pantoprazole Sodium (Pantoprazole Dr 40 Mg Tablet) 40 mg PO BID@,22 [facility] Last Admin: 07/20/20 05:23 Dose: 40 mg Documented by: Paroxetine HCl (Paroxetine 20 Mg Tablet) 10 mg PO BEDTIME@ [facility] Last Admin: 07/19/20 21:50 Dose: 10 mg Documented by: Potassium Chloride (Potassium Chloride Er 20 Meq Tablet) 40 meq PO Q12H [facility] Last Admin: 07/20/20 08:23 Dose: 40 meq Documented by: Propranolol HCl (Propranolol 20 Mg Tablet) 10 mg PO BID [facility] Last Admin: 07/20/20 11:49 Dose: Not Given Documented by: Fluticasone/Salmeterol (Fluticasone-Salmeterol 100-50 Diskus) 1 puff INHALATION BID.RESPIRATORY [facility] Last Admin: 07/20/20 08:26 Dose: 1 puff Documented by: Spironolactone (Spironolactone 25 Mg Tablet) 25 mg PO DAILY@06 [facility] Last Admin: 07/19/20 05:00 Dose: 25 mg Documented by: Zinc Gluconate (Zinc Gluconate 50 Mg Tablet) 50 mg PO DAILY [facility] Last Admin: 07/20/20 08:23 Dose: 50 mg Documented by: Vitals/I&O/Wt Last Vital Signs Temp 97.7 F 07/20/20 12:00 Pulse 80 07/20/20 12:00 Resp 18 07/20/20 12:00 BP 138/75 07/20/20 12:00 Pulse Ox 94 07/20/20 12:00 07/19/20 07/20/20 07/20/20 22:59 06:59 14:59 Intake Total 675 / 795 1270.833 / 2065.833 543.333 / 543.333 Output Total 550 / 550 500 / 500 Balance 675 / 795 720.833 / 1515.833 43.333 / 43.333 Physical Exam Narrative: EXAM NARRATIVE: GENERAL: The patient drowsy but easily arousable.. Not in any acute distress. Morbidly obese HEENT: N patient denies any fever, chills or cough. Moderate pallor, no icterus or lymphadenopathy.Oral cavity: There are no mucous membrane lesions. NECK: Trachea appears to be central. No masses noted. No JVD or thyromegaly appreciated. RESPIRATORY: Chest is symmetrical. No intercostals muscle retraction or any accessory muscle activation. There is no chest wall tenderness. Breath sounds are heard bilaterally. No rales or rhonchi heard. No evidence of any consolidation. BREASTS: Deferred. HEART: The heart sounds are normal. No S3 or S4. Ejection systolic murmur of grade 4/6 in the aortic area. No diastolic murmurs ABDOMEN: No vessel pulsations or distention. No tenderness. No organomegaly appreciated. Bowel sounds are normally heard. : Deferred. RECTAL: Deferred. LYMPHATIC: No lymphadenopathy noted in the neck or groin. EXTREMITIES: Chronic lymph edema both lower extremity with a significant improvement. Features of stasis dermatitis MUSCULOSKELETAL: No acute joint deformities or swelling SKIN: There are no significant rashes or ecchymosis NEUROPSYCHIATRIC: The patient is alert and oriented x3. Appears to be in a good mood. No tremors or rigidity noted. Urinary Catheter Management^: [place]: Cath Placed During This Visit: yes, but has since been removed by the nurse Reason for Continuing Indwelling Catheter: Assist Healing of Perineal & Sacral Wounds- Incontinent Patients Urinary Catheter Date of Insertion: 07/08/20 Urinary Catheter Time of Insertion: 05:40 Date Urinary Catheter Removed: 07/08/20 Time Urinary Catheter Discontinued: 04:45 Data : 07/20/20 08:11 07/20/20 08:11 Other Labs: Laboratory Last Values WBC 7.2 10^3/uL (4.0-10.0) 07/20/20 08:11 RBC 3.17 10^6/uL (4.1-5.3) L 07/20/20 08:11 Hgb 7.8 g/dL (11.5-15.3) L 07/20/20 08:11 Hct 25.7 % (37.0-47.0) L 07/20/20 08:11 MCV 81.1 fL (81-99) 07/20/20 08:11 MCH 24.6 pg (28.0-34.0) L 07/20/20 08:11 MCHC 30.4 g/dL (30.0-36.0) 07/20/20 08:11 RDW 21.0 % (12.1-15.1) H 07/20/20 08:11 Plt Count 211 10^3/cmm (130-400) 07/20/20 08:11 MPV 11.3 fL (7.4-10.4) H 07/20/20 08:11 Neut % (Auto) 62.9 % 07/20/20 08:11 Lymph % (Auto) 17.5 % 07/20/20 08:11 [place] % (Auto) 15.4 % 07/20/20 08:11 Eos % (Auto) 3.5 % 07/20/20 08:11 Baso % (Auto) 0.4 % 07/20/20 08:11 Reticulocyte % (Auto) 2.2800 % 07/12/20 05:11 Neut # (Auto) 4.50 10^3/uL (1.8-7.7) 07/20/20 08:11 Lymph # (Auto) 1.3 10^3/uL (0.8-4.8) 07/20/20 08:11 [place] # (Auto) 1.1 10^3/uL (0.2-0.9) H 07/20/20 08:11 Eos # (Auto) 0.3 10^3/uL (0.0-0.8) 07/20/20 08:11 Baso # (Auto) 0.0 10^3/uL (0.0-0.1) 07/20/20 08:11 Nucleated RBC % (auto) 0 % 07/20/20 08:11 Nucleated RBCs # 0.0 /100WBC 07/20/20 08:11 PT 14.40 SECONDS (12.1-14.9) 07/09/20 04:58 INR 1.08 (0.8-1.2) 07/09/20 04:58 D-Dimer 3.95 ug/mIFEU (0-0.59) H 07/05/20 05:21 Specimen Type Arterial 07/14/20 04:00 Sample Site Radial, left 07/14/20 04:00 ABG pH 7.50 (7.35-7.45) H 07/14/20 04:00 ABG pCO2 49.3 mmHg (35-45) H 07/14/20 04:00 ABG pO2 65.3 mmHg (80.0-100.0) L 07/14/20 04:00 ABG HCO3 38.0 mmol/L (22-26) H 07/14/20 04:00 ABG O2 Saturation 96.3 07/10/20 14:30 ABG Base Excess 13.3 mmol/L (-2.0-2.0) H 07/14/20 04:00 Mehdi Test Pos 07/14/20 04:00 A-a O2 Gradient 12.1 mmHg (5-10) H 07/10/20 14:30 Hematocrit 28.4 % (37-47) L 07/14/20 04:00 Hgb O2 Saturation 94.2 % (95-100) L 07/10/20 14:30 Carboxyhemoglobin 1.2 %THgb (0.4-20.1) 07/10/20 14:30 Methemoglobin 0.9 % (0.4-1.5) 07/10/20 14:30 Total Hemoglobin 9.7 g/dL (12-16) L 07/10/20 14:30 Sodium 136.0 mmol/L (131-143) 07/10/20 14:30 Potassium 4.2 mmol/L (3.5-5.0) 07/10/20 14:30 Glucose 125.0 mg/dL (70-115) H 07/10/20 14:30 Ionized Calcium 1.3 mmol/L (1.1-1.4) 07/10/20 14:30 O2 Delivery Device Nc 07/14/20 04:00 O2 Liters/Min 2.0 % 07/14/20 04:00 FiO2 36.0 % 07/12/20 04:45 Specimen Drawn By Vikas 07/06/20 04:00 Progress Clerk ID Jlg 07/14/20 04:00 Sodium 138 mmol/L (136-145) 07/20/20 08:11 Potassium 3.9 mmol/L (3.5-5.1) 07/20/20 08:11 Chloride 106 mmol/L (98-107) 07/20/20 08:11 Carbon Dioxide 26 mmol/L (22-29) 07/20/20 08:11 Anion Gap 9.9 (5-19) 07/20/20 08:11 BUN 33 mg/dL (6-20) H 07/20/20 08:11 Creatinine 1.3 mg/dL (0.5-0.9) H 07/20/20 08:11 GFR Calculation 42.8 mL/min (90-130) L 07/20/20 08:11 Glucose 77 mg/dL (65-115) 07/20/20 08:11 Calculated Osmolality 292 mOsm/kg (285-295) 07/20/20 08:11 Lactate 0.8 mmol/L (0.5-2.2) 07/11/20 04:30 Calcium 9.0 mg/dL (8.5-10.5) 07/20/20 08:11 Phosphorus 1.7 mg/dL (2.5-4.5) L 07/14/20 05:32 Magnesium 1.8 mg/dL (1.7-2.3) 07/19/20 04:30 Iron 20 ug/dL (37-145) L 07/12/20 05:11 TIBC 345 mcg/dl 07/12/20 05:11 % Saturation 5.7 % (20-50) L 07/12/20 05:11 Unsat Iron Binding 325 ug/dL (112-347) 07/12/20 05:11 Ferritin 68 ng/mL (15-150) 07/12/20 05:11 Total Bilirubin 0.7 mg/dL (0.15-1.2) 07/20/20 08:11 AST 23 U/L (0-32) 07/20/20 08:11 ALT 24 U/L (0-33) 07/20/20 08:11 Alkaline Phosphatase 270 IU/L (35-105) H 07/20/20 08:11 Creatine Kinase 22 U/L (26-192) L 07/11/20 04:30 Creatine Kinase Cancelled 07/11/20 04:30 Troponin T Baseline 16 ng/L (0-10) H 07/02/20 22:43 Troponin T 120 Minute 14.30 ng/L (0-10) H 07/03/20 01:20 Delta Troponin T -1.70 ABS# (0-10) L 07/03/20 01:20 C-Reactive Protein 16.1 mg/L (0.0-4.9) H 07/11/20 04:30 NT-Pro-B Natriuret Pep 746 pg/mL (0-125) H 07/14/20 05:32 Total Protein 5.6 g/dL (6.6-8.7) L 07/20/20 08:11 Albumin 2.7 g/dL (3.5-5.2) L 07/20/20 08:11 Globulin 2.9 g/dL (1.3-4.6) 07/20/20 08:11 Lipase 16 U/L (13-60) 07/02/20 22:43 Vitamin B12 704 pg/mL (232-1245) 07/12/20 05:11 Folate 7.3 ng/mL (4.8-37.3) 07/12/20 05:11 Procalcitonin 0.53 ng/mL (0-0.5) H 07/14/20 05:32 Vancomycin Trough 18.6 ug/mL (10-15) H 07/17/20 09:20 Nasal/Oral COVID-19 PCR Not detected 07/05/20 16:10 SARS-CoV-2 Ag (Rapid) Negative (Negative) 07/03/20 00:43 [facility] Test Reference See comment 07/12/20 11:10 Micro: Microbiology 07/15/20 12:16 Blood Culture - Final Blood NO GROWTH AFTER 5 DAYS 07/15/20 12:16 Blood Culture - Final Blood NO GROWTH AFTER 5 DAYS A&P Assessment and plan (1) Acute on chronic diastolic (congestive) heart failure: Patient seems to have recurrent decompensated diastolic heart failure. Most likely the aortic valve stenosis might be a contributing factor. Her sleep apnea, anemia and possible pneumonia are contributing factors as well. Currently the heart failure is compensated. She is on diuretics on a as needed basis Status: Acute (2) Anemia: The drop in the hemoglobin is a concern. Discussed with Dr. Little. Darian Walker is planning for blood transfusion. Also is planning to cut back on the dose of Eliquis. Status: Acute Qualifiers: Anemia type: iron deficiency Iron deficiency anemia type: unspecified iron deficiency Qualified Code(s): D50.9 - Iron deficiency anemia, unspecified (3) Aortic valve stenosis: In view of the recurrent decompensated diastolic heart failure, she may b enefit from aortic valve intervention. This was discussed with the patient. Because of her morbid obesity, she may not be an ideal candidate for open heart surgery. I will be discussing her case with an benefits administrator in [place] to consider TAVR. Discussed with the Dr. Sousa. Dr. Sousa will be seeing this patient as an outpatient to discuss about the valve intervention. Status: Acute Qualifiers: Cardiac valve disease etiology: nonrheumatic Qualified Code(s): I35.0 - Nonrheumatic aortic (valve) stenosis (4) Hyperlipidemia: Continue on the current medications. Status: Acute Qualifiers: Hyperlipidemia type: mixed hyperlipidemia Qualified Code(s): E78.2 - Mixed hyperlipidemia (5) Atypical chest pain: Currently the patient is pain-free. May continue on the current medicat ions. Status: Acute (6) Hypotension: This could be multifactorial. Her of poor oral intake, diuretic, aortic calcinosis, etc. are contributing factors. I may hold off on the propranolol at this time. Status: Acute Qualifiers: Hypotension type: hypotension due to drug Qualified Code(s): I95.2 - Hypotension due to drugs Additional A&P Information Other problems are as outlined before. Sleep apnea Renal insufficiency, with some acute exacerbation possible related to contrast Possible pneumonia, currently afebrile Osteoarthritis I discussed with the patient once again about the catheter-based option for the aortic valve replacement. she is wanting to go for this procedure. However she would like to go home first and then go to [place] for the procedure. She seems understand implications. Disposition as per Dr. Little Attestations Medical Necessity Statement*: Deferred to the primary Coding Level of Care Code Acute Call Center Trainer for Chg Fwd Diagnoses Acute on chronic diastolic (congestive) heart failure I50.33 Anemia D50.9 Anemia type: iron deficiency Iron deficiency anemia type: unspecified iron deficiency Aortic valve stenosis I35.0 Cardiac valve disease etiology: nonrheumatic Hyperlipidemia E78.2 Hyperlipidemia type: mixed hyperlipidemia Atypical chest pain R07.89 Hypotension I95.2 Hypotension type: hypotension due to drug
--- NOTE | 2020-07-20 18:45 | PC.NURSE ---
pt iv taken out and intact. pt discharge instruction explained and questions answered.
== END 2020-07-20 19:30 | disposition home health service (06) | DRG 286 ==
LOC: ER 07-03 03:35 → MEDSURG 07-03 03:54 → ICU 07-17 10:47 → CSU 07-17 11:54 → MEDSURG 07-19 07:13
PROVIDERS: Family Medicine; Internal Medicine; Internal Medicine Cardiovascular Disease; Nurse Practitioner Family; Surgery; Admitting Provider Internal Medicine; Emergency Provider Emergency Medicine; PCP Nurse Practitioner Family; Visit Provider Internal Medicine
PROC: 0DJ08ZZ Inspection of Upper Intestinal Tract, Via Natural or Artificial Opening Endoscopic (ICD-10-PCS; CPT 43235; principal; 2020-07-15 10:00)
PROC: 0DJD8ZZ Inspection of Lower Intestinal Tract, Via Natural or Artificial Opening Endoscopic (ICD-10-PCS; CPT 45378; 2020-07-15 10:00)
PROC: B24BZZ4 Ultrasonography of Heart with Aorta, Transesophageal (ICD-10-PCS; CPT 93312; principal; 2020-07-16 15:00)
PROC: 4A023N6 Measurement of Cardiac Sampling and Pressure, Right Heart, Percutaneous Approach (ICD-10-PCS; principal; 2020-07-17 10:30)
DX: I11.0 Hypertensive heart disease with heart failure (principal); J18.9 Pneumonia, unspecified organism; J86.9 Pyothorax without fistula; J96.21 Acute and chronic respiratory failure with hypoxia; J44.0 Chronic obstructive pulmonary disease with (acute) lower respiratory infection; K92.2 Gastrointestinal hemorrhage, unspecified; F33.9 Major depressive disorder, recurrent, unspecified; Z68.43 Body mass index [BMI] 50.0-59.9, adult; N17.9 Acute kidney failure, unspecified; I50.33 Acute on chronic diastolic (congestive) heart failure; Z86.718 Personal history of other venous thrombosis and embolism; Z79.01 Long term (current) use of anticoagulants; I35.0 Nonrheumatic aortic (valve) stenosis; G89.29 Other chronic pain; M54.9 Dorsalgia, unspecified; F41.1 Generalized anxiety disorder; E78.2 Mixed hyperlipidemia; Z79.51 Long term (current) use of inhaled steroids; E66.01 Morbid (severe) obesity due to excess calories; M19.90 Unspecified osteoarthritis, unspecified site; G47.30 Sleep apnea, unspecified; F17.210 Nicotine dependence, cigarettes, uncomplicated; N20.0 Calculus of kidney; E89.0 Postprocedural hypothyroidism; K63.5 Polyp of colon; K29.70 Gastritis, unspecified, without bleeding; I95.9 Hypotension, unspecified; B95.8 Unspecified staphylococcus as the cause of diseases classified elsewhere; D50.9 Iron deficiency anemia, unspecified; I27.20 Pulmonary hypertension, unspecified; J84.10 Pulmonary fibrosis, unspecified
CPT/HCPCS: 12345; 36415; 36430; 36600; 43235; 45385; 51702; 51798; 70450; 71045; 71250; 71275; 73030; 76604; 80051; 80053; 80069; 80202; 82274; 82330; 82550; 82607; 82728; 82746; 82803; 82805; 83540; 83550; 83605; 83690; 83735; 83880; 84100; 84145; 84484; 85025; 85045; 85378; 85610; 86140; 86403; 86850; 86900; 86920; 87040; 87077; 87081; 87186; 87205; 87426; 87635; 87641; 88305; 93005; 93306; 93312; 93320; 93325; 93456; 94640; 94660; 96372; 97110; 97116; 97162; 97166; 97530; 97535; 99283; C1751; C1769; C1887; C1894; G0378; J0456; J0692; J0696; J1100; J1200; J1644; J1650; J1940; J1956; J2250; J2405; J2704; J3010; J3370; J3490; J7030; J7040; J7050; J7611; J8540; P9016; Q0144; Q9967

== ENCOUNTER 2020-07-21 03:47 | Observation (INO) | payer MEDICARE, MEDICAID, SELFPAY ==
[2020-04-23 13:43] VITALS: BP 124/66; BMI 56.5
[2020-07-21] VITALS (13 sets, daily range): BP systolic 85–140; BP diastolic 47–75; PULSE 81–113; RESP 16–20; TEMP 36.3–37.2; O2SAT 93–100; BMI 54.8
--- NOTE | 2020-07-21 03:59 | ECG_ITS ---
[facility] Test Date: 2020-07-21 Pat Name: Maria G Merritt Department: Room: Gender: Female Sled Maker: : 1965 Requested By: Mallika Merritt Order Number: [id number] Monreal MD: Suzie Hassan M.D. Measurements Intervals [place] Rate: 80 P: 43 IN: 175 QRS: 35 QRSD: 99 T: 33 QT: 370 QTc: 428 Interpretive Statements SINUS RHYTHM Compared to ECG 07/03/2020 10:01:23 Ventricular premature complex(es) no longer present Electronically Signed On 07-21-2020 11:38:42 RESIDENT CARE ASSOCIATE by Suzie Hassan M.D. [email or web address]
--- NOTE | 2020-07-21 04:12 | W.ED.WEAKNES ---
HPI - Weakness General: Chief complaint: Weakness Stated complaint: WEAKNESS Time Seen by Provider: 07/21/20 03:48 Source: patient Mode of arrival: EMS Limitations: no limitations History of Present Illness: HPI Narrative: 54-year-old female brought in by EMS after she fell at home while trying to use the toilet. States that she was very weak, fell to the ground, landing on her buttocks, did not hit her head. Was too weak to get herself up. Was just discharged from this hospital yesterday after being treated for acute on chronic heart failure related to severe aortic stenosis. She is in the process of being referred for evaluation for TAVR in [place]. She was hoping to be able to go home in the meantime, but now feels like she is too weak, and does not have enough help at home- Denies any fever, worsening shortness of breath, worsening chest pain, nausea, vomiting or any other new symptoms since discharge. Complaint: generalized weakness, lack of energy and difficulty walking Onset (ago): day(s) Associated symptoms: Reports easy bruising; Denies chest pain, dysuria, fever(s), headache(s), nausea or vomiting Review of Systems General: Reports: 10 or more systems reviewed and unremarkable except in HPI and below Const: Denies: fever(s), chills, body aches, change in appetite or change in weight Eyes: Denies: change in vision, blurry vision or blind spots ENMT: Denies: throat pain, odynophagia or mouth pain Card: Reports: swelling of feet/ankles and lightheadedness; Denies: chest pain or palpitations Resp: Reports: dyspnea GI: Denies: nausea, vomiting or dysphagia : Denies: difficulty voiding or dysuria Musc: Denies: neck pain, extremity pain or extremity swelling Neuro: Reports: weakness in extremities, difficulty walking, frequent falls and dizziness; Denies: headache(s) or numbness in extremities Elvis/Lymph: Reports: easy bruising and easy bleeding PFS ED PFSH: Medical History Abnormal angiogram Aortic valve stenosis Severe. Chronic back pain COPD (chronic obstructive pulmonary disease) Generalized anxiety disorder Hyperlipidemia Hypertension Hypothyroidism Major depressive disorder, recurrent, moderate Obstructive pyelonephritis Osteoarthritis Sleep apnea Ureteral calculus, right Surgical History H/O cardiac catheterization H/O cystoscopy H/O lateral meniscus repair of left knee S/P thyroidectomy Family History Father Hypertension Hyperlipidemia Cancer Brother Hypertension CAD (coronary artery disease) Hyperlipidemia Sister Hypertension Cancer Grandfather Hypertension Diabetes Grandmother Hypertension CAD (coronary artery disease) Cancer Diabetes Mother CAD (coronary artery disease) Hypertension Hyperlipidemia Cancer Denies family history of Anesthesia complication Social History Smoking and tobacco status: current every day smoker cigarettes Years cigarettes smoked: 34 Quit status (tobacco): considering quitting Smoking risk assessment/counseling performed?: Yes Alcohol intake: current Alcohol intake frequency: holidays/special occasions only Desire information about alcohol rehabilitation?: No Counseling given: No Marital status: Single Current gender identity: Female Physical Exam Const: COMMON NORMALS: no acute distress, patient oriented x3 and alert GENERAL APPEARANCE: ill appearing, frail appearing and appears older than stated age NUTRITIONAL APPEARANCE: obese HENMT: COMMON NORMALS: normocephalic HEAD & SCALP: normocephalic FACE & SINUS: normal facial exam and face symmetric Eye: COMMON NORMALS: Equal, round and reactive pupils present, EOMs intact bilaterally, conjunctivae normal and no scleral icterus CONJUNCTIVA: Yes conjunctivae normal PUPIL: Yes Equal, round and reactive pupils present Chest: COMMONS NORMALS: normal inspection of the chest and normal palpation of entire chest wall Resp: COMMON NORMALS: normal respiratory effort EFFORT & INSPECTION: No respiratory distress, No pursed lip breathing, No labored, No stridor and No Actively coughing Cardio: COMMON NORMALS: regular rate and regular rhythm RATE: regular rate RHYTHM: regular rhythm HEART SOUNDS: Murmur heart sound present systolic Location: left sternal border Characteristics: harsh Timing: early GI: COMMON NORMALS: Soft to palpation; negative for No hepatosplenomegaly present PALPATION: Yes Soft to palpation, No Tenderness to palpation present (GI), No Guarding due to palpation present (GI), No Rigid due to palpation, No No hepatosplenomegaly present and No Palpable mass present Extremity: NARRATIVE EXTREMITY EXAM: Marked lipedema of bilateral lower extremities. Normal range of motion bilateral hips. No Neuro: NICK COMA SCALE: document GCS findings COMMON NORMALS: patient oriented x3 SENSORIUM/ORIENTATION: Yes alert CRANIAL NERVES: Yes CN normal except as noted SPEECH: speech normal MOTOR EXAM: no asterixis, Motor fasciculations not present and Motor abnormalities not present Skin: GENERAL SKIN EXAM: ecchymosis, purpura and pallor TRAUMA: lacerations and/or abrasions noted WOUNDS: No surgical site Course Vital Signs: Vital signs: Vital Signs Temperature 97.5 F L 07/21/20 03:48 Pulse Rate 84 07/21/20 06:00 Respiratory Rate 18 07/21/20 06:00 Blood Pressure 108/75 07/21/20 06:00 Pulse Oximetry 95 07/21/20 06:00 MDM - Weakness MDM Narrative: Medical decision making narrative: 54-year-old female with aortic stenosis, CHF, returning to the ED after becoming weak and falling at home. She was just discharged from hospital yesterday. She requires assistance with ambulating, and does not have any reliable help at home. Initially she was eager to return home and follow-up with cardiology as an outpatient to discuss possible TAVR, but now feels that she is not strong enough to care for self at home. Hospital records from recent admission reviewed. She is seen by Dr. Riddle, cardiology, yesterday prior to discharge. Her blood pressures have been stable, EKG showed normal sinus rhythm with no acute ischemic changes. Chemistry stable, with the exception of intermittent elevation in bilirubin to 1.4. Urinalysis suggests contamination rather than active infection. Discussed case with Dr. Henley, she recommends admission to observation for rehab eval. Differential Diagnosis: Weakness Differential Diagnosis: Likely acute myocardial infarction, anemia, hypothyroidism, rhabdomyolysis, sepsis and dehydration Medical Records: Attestation: I reviewed the patient's medical records. Lab Data: Attestation: I reviewed the patient's lab results. Labs: Lab Results 07/21/20 07/21/20 07/21/20 Range/Units 04:25 04:25 04:47 WBC 9.9 (4.0-10.0) 10^3/ uL RBC 3.92 L (4.1-5.3) 10^6/u L Hgb 10.0 L (11.5-15.3) g/dL Hct 34.3 L D (37.0-47.0) % MCV 87.5 D (81-99) fL MCH 25.5 L (28.0-34.0) pg MCHC 29.2 L (30.0-36.0) g/dL RDW 22.2 H (12.1-15.1) % Plt Count 134 (130-400) 10^3/c mm MPV 11.1 H (7.4-10.4) fL Neut % (Auto) 72.0 % Lymph % (Auto) 12.4 % [place] % (Auto) 12.5 % Eos % (Auto) 2.3 % Baso % (Auto) 0.6 % Neut # (Auto) 7.11 (1.8-7.7) 10^3/u L Lymph # (Auto) 1.2 (0.8-4.8) 10^3/u L [place] # (Auto) 1.2 H (0.2-0.9) 10^3/u L Eos # (Auto) 0.2 (0.0-0.8) 10^3/u L Baso # (Auto) 0.1 (0.0-0.1) 10^3/u L Nucleated RBC % (a uto) 0 % Nucleated RBCs # 0.0 /100WBC Sodium 133 L (136-145) mmol/L Potassium 3.7 (3.5-5.1) mmol/L Chloride 103 (98-107) mmol/L Carbon Dioxide 18 L (22-29) mmol/L Anion Gap 15.7 (5-19) BUN 30 H (6-20) mg/dL Creatinine 1.2 H (0.5-0.9) mg/dL GFR Calculation 47.0 L (90-130) mL/min Glucose 106 (65-115) mg/dL Calculated Osmolal ity 283 L (285-295) mOsm/k g Calcium 9.5 (8.5-10.5) mg/dL Magnesium 1.7 (1.7-2.3) mg/dL Total Bilirubin 1.4 H (0.15-1.2) mg/dL AST 30 (0-32) U/L ALT 27 (0-33) U/L Alkaline Phosphata se 296 H (35-105) IU/L Creatine Kinase 24 L (26-192) U/L Total Protein 6.7 (6.6-8.7) g/dL Albumin 3.1 L (3.5-5.2) g/dL Globulin 3.6 (1.3-4.6) g/dL Urine Color Yellow (Yellow) Urine Appearance Clear (CLEAR) Urine pH 5 (5-7) Ur Specific Gravit y 1.020 (1.005-1.030) Urine Protein Neg (Negative) Urine Glucose (UA) Norm (Normal) Urine Ketones Negative (Negative) Urine Blood 2+ H (Negative) Urine Nitrate Negative (Negative) Urine Bilirubin Neg (Negative) Urine Urobilinogen Norm (Negative) mg/dL Ur Leukocyte Yoly ase Trace H (Negative) Urine RBC 15-25 H (0-2) /hpf Urine WBC 0-4 H (0-5) /hpf Ur Squamous Epith Cells 25-40 H (0-5) /hpf Amorphous Sediment Not Reportable Urine Bacteria 2+ H (NONE) /hpf Urine Mucus 1+ /hpf EKG Data^: EKG 1: Attestation: I personally reviewed and interpreted this EKG as follows: EKG interpretation date: 07/21/20 EKG interpretation time: 04:15 Prior EKG tracings: available for review Interpretation: Normal sinus rhythm with a rate of 80, NM 175, QRS 99, QTc 406, normal axis, no ST segment elevation or depression. No abnormal inverted T waves. Discharge Plan Discharge Patient Disposition: Admitted As Inpatient Clinical Impression: Aortic valve stenosis, Weakness generalized, Requires assistance with activities of daily living (ADL) Condition: Stable Prescriptions: No Action gabapentin 300 mg capsule 300 mg PO BEDTIME@22 RF: 0 levothyroxine 100 mcg capsule 100 mcg PO DAILY@06 RF: 0 montelukast [Singulair] 10 mg tablet 10 mg PO DAILY@22 RF: 0 spironolactone 25 mg tablet 25 mg PO DAILY@06 RF: 0 albuterol sulfate 90 mcg/actuation HFA aerosol inhaler 2 puff INHALATION Q6H PRN (Reason: Shortness Of Breath) RF: 0 loratadine 10 mg capsule 10 mg PO DAILY@06 RF: 0 zonisamide 100 mg capsule See Rx Instructions .ROUTE .COMPLEX Qty: 540 RF: 1 baclofen 10 mg Tablet 10 mg PO TID PRN (Reason: Muscle Spasm) RF: 0 paroxetine HCl [Paxil] 10 mg tablet 10 mg PO BEDTIME@22 RF: 0 aripiprazole [Abilify] 5 mg tablet 5 mg PO DAILY@22 RF: 0 rosuvastatin [Crestor] 40 mg Tablet 40 mg PO DAILY@22 RF: 0 albuterol sulfate 2.5 mg /3 mL (0.083 %) solution for nebulization 2.5 mg inhalation Q6H PRN (Reason: Shortness Of Breath) RF: 0 Senexon-S 8.6-50 mg tablet 1 tab PO DAILY PRN (Reason: Constipation) RF: 0 simvastatin 40 mg tablet 40 mg PO DAILY RF: 0 Klor-Con M20 20 mEq tablet,ER particles/crystals 20 meq PO BID RF: 0 Nitrostat 0.4 mg Tablet, Sublingual 0.4 mg SUBLINGUAL Q5M PRN (Reason: Chest Pain) RF: 0 fluticasone propionate 50 mcg/actuation spray,suspension 1 - 2 spray INTRANASAL DAILY PRN (Reason: unknown) RF: 0 pantoprazole 40 mg Tablet,Delayed Release (Dr/Ec) 40 mg PO BID Qty: 60 RF: 0 ferrous sulfate 325 mg (65 mg iron) Tablet,Delayed Release (Dr/Ec) 325 mg PO EVERY OTHER DAY Qty: 60 RF: 0 bupropion HCl 150 mg tablet sustained-release 12 hr 150 mg PO BID@06, RF: 0 oxycodone-acetaminophen 5-325 mg Tablet 1 tab PO Q4H PRN (Reason: Pain) RF: 0 Referrals: Liza Davila GRAIN OILSEED OR PASTURE GROWER [Primary Care Provider] - Coding Level of Care Code ED Business Services Manager for Jose Graham
[2020-07-21 04:34] LABS: Basophils # 0.1 10^3/uL (0.0-0.1); Basophils % 0.6 %; Eosinophils # 0.2 10^3/uL (0.0-0.8); Eosinophils % 2.3 %; Hematocrit 34.3 % (37.0-47.0); Lymphocytes # 1.2 10^3/uL (0.8-4.8); Lymphocytes % 12.4 %; Mean Corpuscular HGB Conc 29.2 g/dL (30.0-36.0); Mean Corpuscular Hemoglobin 25.5 pg (28.0-34.0); Mean Corpuscular Volume 87.5 fL (81-99); Mean Platelet Volume 11.1 fL (7.4-10.4); Monocytes # 1.2 10^3/uL (0.2-0.9); Monocytes % 12.5 %; Neutrophils # 7.11 10^3/uL (1.8-7.7); Nucleated Red Blood Cells % 0 %; Platelet Count 134 10^3/cmm (130-400); Red Blood Count 3.92 10^6/uL (4.1-5.3); Red Cell Distribution Width 22.2 % (12.1-15.1); White Blood Count 9.9 10^3/uL (4.0-10.0)
[2020-07-21 04:54] LABS: Calcium 9.5 mg/dL (8.5-10.5)
[2020-07-21 04:59] LABS: Chloride 103 mmol/L (98-107); Potassium 3.7 mmol/L (3.5-5.1)
[2020-07-21 05:09] LABS: Slide Review Slide Review Perform
[2020-07-21 05:16] LABS: Alanine Aminotransferase 27 U/L (0-33); Albumin Level 3.1 g/dL (3.5-5.2); Alkaline Phosphatase 296 IU/L (35-105); Anion Gap 15.7 (5-19); Aspartate Amino Transferase 30 U/L (0-32); Blood Urea Nitrogen 30 mg/dL (6-20); Carbon Dioxide 18 mmol/L (22-29); Creatine Phosphokinase 24 U/L (26-192); Globulin 3.6 g/dL (1.3-4.6); Glucose 106 mg/dL (65-115); Magnesium 1.7 mg/dL (1.7-2.3); Osmolality Calculated 283 mOsm/kg (285-295); Sodium 133 mmol/L (136-145); Total Bilirubin 1.4 mg/dL (0.15-1.2); Total Protein 6.7 g/dL (6.6-8.7)
[2020-07-21 05:20] LABS: Add Urine Microscopic? YES; Bilirubin Urine Neg (Negative); Blood Urine 2+ (Negative); Glucose Urine UA Norm (Normal); Ketones Urine Negative (Negative); Leukocyte Esterase Urine Trace (Negative); Nitrate Urine Negative (Negative); Protein Urine Neg (Negative); Urine Appearance Clear (CLEAR); Urine Color Yellow (Yellow); Urobilinogen Urine Norm (Negative); pH Urine 5 (5-7)
[2020-07-21 05:35] LABS: Add Urine Culture? No; Bacteria Urine 2+ /hpf; Mucus Urine 1+ /hpf; RBC Urine 15-25 /hpf (0-2); Squamous Epithelial Cell Urine 25-40 /hpf (0-5); WBC Urine 0-4 /hpf (0-5)
--- NOTE | 2020-07-21 07:22 | PC.NURSE ---
Received report assumed care. No IV in place upon ER visit. No labs drawn, none ordered Pt is alert and oriented. Discharged yesterday ,went back home, then fell in the bathroom. EMS called , picked her up and brought to the ER.
--- NOTE | 2020-07-21 07:26 | P.HP_ITS ---
Providers/Chief Complaint Primary Care Provider: Liza Davila NP Chief Complaint: WEAKNESS History of Present Illness Maria G Merritt is a 54 year old female with significant underlying past medical history of severe aortic valve stenosis for which patient is planned to be referred to cardiothoracic surgeon in [place]. She just had prolonged hospitalization and yesterday was discharged. It was recommended to patient to consider residential facility but she wanted to go home. She obviously cannot function at home and presented back to ER after she fell on her buttocks while trying to use toilet. She did not injure her head. Her recent hospitalization was prolonged and complicated. She appeared to have upper GI bleed and found to have gastritis on EGD. She was given 1 unit of PRBC yesterday prior to discharge and hemoglobin today is 10.0. Her Eliquis which patient takes for previous history of PE/DVT was held and patient was discharged on high-dose PPI. I have discussed with patient's primary care provider Liza Davila and plan was to repeat labs on Sunday and make decision of reinitiating Eliquis may be at a lower dose 2.5 mg twice daily. She had elevated creatinine shortly after coronary angiogram and her creatinine appears to be improving. She has been placed for an observation to arrange placement to nursing facility. Review of Systems Narrative: Patient denies headache, visual or hearing changes. Reports dry cough. Denies difficulty swallowing. Denies chest pain or shortness of breath. Denies abdominal pain but noted to have epigastric area tenderness on palpation. She had 4 diarrheal bowel movements since yesterday but could not comment whether there were melanotic or had evidence of hematochezia. Replied that she did not look. Denies any difficulty with urination. No lower extrem ity swelling. Denies fever or chills. Reports dry mouth. Reports being nauseous but not vomiting. Reports that she continues to smoke 2 cigarettes a day. Reports that she fell and has some pain in her mid back. Her hemoglobin is stable. Reports generalized weakness and was unable to get up when she slid down. Medications/Allergies Home Medications Medication Instructions Recorded Confirmed Last Taken Type gabapentin 300 mg capsule 300 mg PO BEDTIME@22 cap 06/17/19 07/03/20 05/17/20 History levothyroxine 100 mcg capsule 100 mcg PO DAILY@06 06/17/19 07/03/20 05/18/20 History montelukast 10 mg tablet 10 mg PO DAILY@06/17/19 07/03/20 05/17/20 History baclofen 10 mg PO TID PRN 10/07/19 07/03/20 05/18/20 History bupropion HCl 150 mg PO BID@01/21/20 07/03/20 05/18/20 History oxycodone-acetaminophen 1 tab PO Q4H PRN 01/21/20 07/03/20 05/18/20 History albuterol sulfate 90 mcg/actuation 2 puff INHALATION Q6H PRN 02/05/20 07/03/20 05/18/20 History aerosol inhaler loratadine 10 mg capsule 10 mg PO DAILY@02/05/20 07/03/20 05/18/20 History spironolactone 25 mg tablet 25 mg PO DAILY@02/18/20 07/03/20 05/18/20 History zonisamide 100 mg capsule See Rx Instructions .ROUTE 03/23/20 07/03/20 05/17/20 Rx .COMPLEX #540 cap aripiprazole [Abilify] 5 mg PO DAILY@05/18/20 07/03/20 05/17/20 History paroxetine HCl [Paxil] 10 mg PO BEDTIME@05/18/20 07/03/20 05/17/20 History rosuvastatin [Crestor] 40 mg PO DAILY@05/18/20 07/03/20 05/17/20 History Klor-Con M20 20 meq PO BID 07/03/20 07/03/20 Unknown History Nitrostat 0.4 mg SUBLINGUAL Q5M PRN 07/03/20 07/03/20 Unknown History Senexon-S 1 tab PO DAILY PRN 07/03/20 07/03/20 Unknown History albuterol sulfate 2.5 mg INHALATION Q6H PRN 07/03/20 07/03/20 Unknown History fluticasone propionate 1 - 2 spray INTRANASAL DAILY PRN 07/03/20 07/03/20 Unknown History simvastatin 40 mg PO DAILY 07/03/20 07/03/20 Unknown History ferrous sulfate 325 mg PO EVERY OTHER DAY #60 tab 07/20/20 Unknown Rx pantoprazole 40 mg PO BID #60 tab 07/20/20 Unknown Rx Allergies Allergy/AdvReac Type Severity Reaction Status Date / Time adhesive tape Allergy Unknown Verified 06/17/20 12:25 influenza virus vaccine qs Allergy Unknown Verified 06/17/20 12:25 [id number] (36 mos, up) [From Single Use EZ Flu] Flu Allergy Unknown Unknown Uncoded 07/09/20 13:04 PFSH Acute PFSH: Medical History Abnormal angiogram Aortic valve stenosis Severe. Chronic back pain COPD (chronic obstructive pulmonary disease) Generalized anxiety disorder Hyperlipidemia Hypertension Hypothyroidism Major depressive disorder, recurrent, moderate Obstructive pyelonephritis Osteoarthritis Sleep apnea Ureteral calculus, right Surgical History H/O cardiac catheterization H/O cystoscopy H/O lateral meniscus repair of left knee S/P thyroidectomy Family History Father Hypertension Hyperlipidemia Cancer Brother Hypertension CAD (coronary artery disease) Hyperlipidemia Sister Hypertension Cancer Grandfather Hypertension Diabetes Grandmother Hypertension CAD (coronary artery disease) Cancer Diabetes Mother CAD (coronary artery disease) Hypertension Hyperlipidemia Cancer Denies family history of Anesthesia complication Social History Smoking and tobacco status: current every day smoker cigarettes Years cigarettes smoked: 34 Quit status (tobacco): considering quitting Smoking risk assessment/counseling performed?: Yes Alcohol intake: current Alcohol intake frequency: holidays/special occasions only Desire information about alcohol rehabilitation?: No Counseling given: No Marital status: Single Current gender identity: Female Vitals/I&O/Wt Last Vital Signs Temp 98.9 F 07/21/20 07:00 Pulse 81 07/21/20 07:00 Resp 18 07/21/20 07:00 BP 115/72 07/21/20 07:00 Pulse Ox 97 07/21/20 07:00 Weight last 48 hrs Weight 154.221 kg Physical Exam Const: COMMON NORMALS: no acute distress, patient oriented x3 and alert HENMT: COMMON NORMALS: normocephalic and atraumatic HEAD & SCALP: normoc ephalic and atraumatic OTHER: Mucous membranes are dry. Edentulous. Eye: COMMON NORMALS: EOMs intact bilaterally, conjunctivae normal and no scleral icterus CONJUNCTIVA: Yes conjunctivae normal Neck/C-Spine: COMMON NORMALS: no lymphadenopathy and no meningeal signs Lymph: LYMPHATIC: no lymphadenopathy noted Chest: COMMONS NORMALS: normal palpation of entire chest wall Resp: COMMON NORMALS: No use of accessory muscles and clear to auscultation bilaterally AUSCULTATION: clear to auscultation bilaterally Cardio: COMMON NORMALS: regular rate and regular rhythm RATE: regular rate RHYTHM: regular rhythm OTHER: No lower extremity pitting edema. Signific ant lipo and lymphedema. 2 out of 6 systolic murmur best heard at the left and right upper sternal border GI: COMMON NORMALS: Soft to palpation PALPATION: Yes Soft to palpation RECTAL EXAM: deferred OTHER: Tender at epigastric area. No guarding or rebound tenderness. Extremity: COMMON NORMALS: normal to inspection and capillary refill normal Neuro: COMMON NORMALS: patient oriented x3 and no focal motor deficits SENSORIUM/ORIENTATION: Yes alert MENINGEAL SIGNS: Yes no meningeal signs Psych: COMMON NORMALS: mental status grossly normal, Normal thought process present and cooperative THOUGHT PROCESS: Normal thought process present Skin: COMMON NORMALS: no rashes or lesions noted GENERAL SKIN EXAM: no rashes or lesions noted Data : 07/21/20 04:25 07/21/20 04:25 A&P Assessment and plan (1) Weakness generalized: Status: Acute (2) Requires assistance with activities of daily living (ADL): Status: Acute (3) Morbid obesity with BMI of 50.0-59.9, adult: Status: Acute (4) Anemia: Status: Acute (5) Upper GI bleed: Status: Acute (6) Acute kidney injury: Status: Acute (7) Aortic valve stenosis: Status: Acute Qualifiers: Cardiac valve disease etiology: etiology unspecified Qualified Code(s): I35.0 - Nonrheumatic aortic (valve) stenosis (8) Major depressive disorder, recurrent, moderate: Status: Acute (9) Generalized anxiety disorder: Status: Acute (10) Diarrhea: Status: Acute (11) Abdominal pain: Status: Acute (12) Dehydration with hyponatremia: Status: Acute Additional A&P Information PLAN: Will observe patient and arrange placement to nursing facility for further rehabilitation. Check direct bilirubin and gallbladder ultrasound. Will hydrate patient with LR and monitor urinary output. Stool studies. Physical and Occupational Therapy. Attestations Medical Necessity Statement*: Patient with generalized weakness is observation for placement to nursing facility. I expect patient will require less than two midnights. Time Spent in Patient Care: Greater than 35 minutes Coding Level of Care Code Acute Latin American Studies Professor for Chg Fwd Diagnoses Weakness generalized R53.1 Requires assistance with activities of daily living (ADL) Z74.1 Morbid obesity with BMI of 50.0-59.9, adult E66.01; Z68.43 Anemia D64.9 Upper GI bleed K92.2 Acute kidney injury N17.9 Aortic valve stenosis I35.0 Cardiac valve disease etiology: etiology unspecified Major depressive disorder, recurrent, moderate F33.1 Generalized anxiety disorder F41.1 Diarrhea R19.7 Abdominal pain R10.9 Dehydration with hyponatremia E86.0; E87.1
--- NOTE | 2020-07-21 07:26 | PC.NURSE ---
Informed Dr Andrade , no IV access or labs drawn.
--- NOTE | 2020-07-21 09:11 | US_ITS ---
WS: [id number] ULTRASOUND ABDOMEN LIMITED CLINICAL INFORMATION: Epigastric area pain and elevated bili COMPARISON: Ultrasound 8 019 FINDINGS: Liver Size: Normal. Craniocaudal length: 13.0 cm. Echogenicity: Normal. Surface nodularity: None. Mass (size and location): None. Bile ducts Intrahepatic ducts: Normal. Common bile duct diameter: 0.4 cm. Gallbladder Cholelithiasis Gallstones: Present Gallbladder sludge: None. Gallbladder wall thickening: None. Pericholecystic fluid: None. Sonographic Granda sign: Absent. Pancreas Normal as visualized. Right kidney: Normal. Hydronephrosis: None. Size: 11.2 cm x 5.2 cm x 5.1 cm. Abdominal aorta and IVC Visualized portions are normal. Ascites: None. US/US gall bladder [id number] IMPRESSION: 1. Normal liver. No intrahepatic biliary ductal dilatation. 2. Cholelithiasis. Normal common bile duct. 3. No hydronephrosis in right kidney.
[2020-07-21] MEDS: lactated ringers 1,000 ML 125 ML IV ×2 (10:11→17:23)
[2020-07-21] MEDS: pantoprazole DR 40 mg Tablet PO ×2 (10:14→17:16)
[2020-07-21] MEDS: acetaminophen 325 mg Tablet 650 MG PO (17:23)
[2020-07-21] MEDS: montelukast sodium 10 mg Tablet PO (21:51)
[2020-07-22] VITALS (7 sets, daily range): BP systolic 99–112; BP diastolic 61–75; PULSE 90–100; RESP 16–18; TEMP 36.7–37.1; O2SAT 92–96
[2020-07-22] MEDS: lactated ringers 1,000 ML 125 ML IV (01:07)
[2020-07-22 05:20] LABS: Basophils % 0.4 %; Eosinophils # 0.3 10^3/uL (0.0-0.8); Eosinophils % 4.8 %; Hemoglobin 9.1 g/dL (11.5-15.3); Lymphocytes # 1.3 10^3/uL (0.8-4.8); Lymphocytes % 23.9 %; Mean Corpuscular HGB Conc 31.4 g/dL (30.0-36.0); Mean Corpuscular Volume 79.7 fL (81-99); Mean Platelet Volume 10.5 fL (7.4-10.4); Monocytes # 0.8 10^3/uL (0.2-0.9); Monocytes % 15.4 %; Neutrophils # 3.03 10^3/uL (1.8-7.7); Neutrophils % 55.3 %; Nucleated Red Blood Cells % 0 %; Platelet Count 156 10^3/cmm (130-400); Red Blood Count 3.64 10^6/uL (4.1-5.3); Red Cell Distribution Width 21.5 % (12.1-15.1); White Blood Count 5.5 10^3/uL (4.0-10.0)
[2020-07-22 05:43] LABS: Alanine Aminotransferase 24 U/L (0-33); Albumin Level 2.7 g/dL (3.5-5.2); Alkaline Phosphatase 253 IU/L (35-105); Anion Gap 11.2 (5-19); Aspartate Amino Transferase 25 U/L (0-32); Blood Urea Nitrogen 21 mg/dL (6-20); Calcium 8.7 mg/dL (8.5-10.5); Carbon Dioxide 25 mmol/L (22-29); Chloride 104 mmol/L (98-107); Creatinine Clr Calc Pharmacy 111.0031; Glomerular Filtration Rate 65.5 mL/min (90-130); Glucose 78 mg/dL (65-115); Magnesium 1.6 mg/dL (1.7-2.3); Osmolality Calculated 286 mOsm/kg (285-295); Phosphorus 2.6 mg/dL (2.5-4.5); Potassium 3.2 mmol/L (3.5-5.1); Sodium 137 mmol/L (136-145); Total Bilirubin 1.1 mg/dL (0.15-1.2); Total Protein 5.7 g/dL (6.6-8.7)
[2020-07-22] MEDS: loratadine 10 mg Tablet PO (06:12)
[2020-07-22] MEDS: pantoprazole DR 40 mg Tablet PO ×2 (07:20→17:08)
--- NOTE | 2020-07-22 08:29 | PM.PN ---
Subjective Subjective: Interval history: Patient denies any complaints this morning including shortness of breath, chest pain or abdominal pain. Reports that her appetite is good and she wants to advance her diet from clear liquids. Gallbladder ultrasound was negative. Patient reports that her diarrhea much improved and she only had 1 soft bowel movement while hospitalized which was not watery. Vitals/I&O/Wt Last Vital Signs Temp 98.1 F 07/22/20 07:35 Pulse 99 07/22/20 07:35 Resp 16 07/22/20 07:35 BP 108/75 07/22/20 07:35 Pulse Ox 96 07/22/20 07:35 07/21/20 07/22/20 07/22/20 22:59 06:59 14:59 Intake Total 1140 / 1140 966.667 / 2106.667 Output Total 700 / 700 Balance 1140 / 1140 266.667 / 1406.667 Weight last 48 hrs Weight 153.343 kg Weight 154.221 kg Physical Exam Narrative: EXAM NARRATIVE: Exam shows clear lungs and regular heart. No pitting lower extremity edema. Data : 07/22/20 04:41 07/22/20 04:41 A&P Assessment and plan (1) Weakness generalized: Status: Acute (2) Requires assistance with activities of daily living (ADL): Status: Acute (3) Morbid obesity with BMI of 50.0-59.9, adult: Status: Acute (4) Anemia: Status: Acute (5) Upper GI bleed: Status: Acute (6) Acute kidney injury: Status: Acute (7) Aortic valve stenosis: Status: Acute Qualifiers: Cardiac valve disease etiology: etiology unspecified Qualified Code(s): I35.0 - Nonrheumatic aortic (valve) stenosis (8) Major depressive disorder, recurrent, moderate: Status: Acute (9) Generalized anxiety disorder: Status: Acute (10) Diarrhea: Status: Acute (11) Abdominal pain: Status: Acute (12) Dehydration with hyponatremia: Status: Acute Additional A&P Information PLAN: Discontinue IV fluids. Patient is on clear liquid diet and she denies any difficulty swallowing. Will advance to regular diet. Replete electrolytes, magnesium and potassium. Physical and Occupational Therapy. Awaiting placement to nursing facility. Attestations Medical Necessity Statement*: Patient with generalized weakness requires observation until placement to nursing facility is arranged. Coding Level of Care Code Acute Frequency Checker for Chg Fwd Diagnoses Weakness generalized R53.1 Requires assistance with activities of daily living (ADL) Z74.1 Morbid obesity with BMI of 50.0-59.9, adult E66.01; Z68.43 Anemia D64.9 Upper GI bleed K92.2 Acute kidney injury N17.9 Aortic valve stenosis I35.0 Cardiac valve disease etiology: etiology unspecified Major depressive disorder, recurrent, moderate F33.1 Generalized anxiety disorder F41.1 Diarrhea R19.7 Abdominal pain R10.9 Dehydration with hyponatremia E86.0; E87.1
[2020-07-22] MEDS: magnesium sulfate premix 2 GM/50 ML PIGGYBACK IV (08:46)
[2020-07-22] MEDS: potassium chloride ER 20 mEq Tablet 40 MEQ PO ×2 (08:46→12:20)
[2020-07-22] MEDS: baclofen 10 mg Tablet PO (12:23)
[2020-07-22] MEDS: montelukast sodium 10 mg Tablet PO (22:23)
[2020-07-23] VITALS (9 sets, daily range): BP systolic 112–166; BP diastolic 50–71; PULSE 92–103; RESP 16–20; TEMP 36.5–36.9; O2SAT 93–97
[2020-07-23 05:16] LABS: Basophils % 0.4 %; Eosinophils # 0.2 10^3/uL (0.0-0.8); Eosinophils % 3.5 %; Hematocrit 30.2 % (37.0-47.0); Hemoglobin 9.1 g/dL (11.5-15.3); Lymphocytes % 19.7 %; Mean Corpuscular HGB Conc 30.1 g/dL (30.0-36.0); Mean Corpuscular Hemoglobin 25.5 pg (28.0-34.0); Mean Corpuscular Volume 84.6 fL (81-99); Mean Platelet Volume 10.8 fL (7.4-10.4); Monocytes # 0.9 10^3/uL (0.2-0.9); Monocytes % 17.1 %; Neutrophils % 59.1 %; Nucleated Red Blood Cells % 0 %; Platelet Count 145 10^3/cmm (130-400); Red Blood Count 3.57 10^6/uL (4.1-5.3); Red Cell Distribution Width 23.5 % (12.1-15.1); White Blood Count 5.1 10^3/uL (4.0-10.0)
[2020-07-23] MEDS: loratadine 10 mg Tablet PO (05:22)
[2020-07-23] MEDS: acetaminophen 325 mg Tablet 650 MG PO (05:22)
[2020-07-23 05:51] LABS: Alanine Aminotransferase 24 U/L (0-33); Albumin Level 2.7 g/dL (3.5-5.2); Alkaline Phosphatase 268 IU/L (35-105); Anion Gap 12.6 (5-19); Aspartate Amino Transferase 29 U/L (0-32); Blood Urea Nitrogen 17 mg/dL (6-20); Carbon Dioxide 23 mmol/L (22-29); Chloride 105 mmol/L (98-107); Globulin 3.3 g/dL (1.3-4.6); Glomerular Filtration Rate 65.5 mL/min (90-130); Glucose 88 mg/dL (65-115); Magnesium 1.8 mg/dL (1.7-2.3); Osmolality Calculated 285 mOsm/kg (285-295); Potassium 3.6 mmol/L (3.5-5.1); Sodium 137 mmol/L (136-145); Total Bilirubin 0.9 mg/dL (0.15-1.2)
--- NOTE | 2020-07-23 08:54 | PM.PN ---
Subjective Subjective: Interval history: Patient denies shortness of breath or chest pain. Reports that she has chronic right hip pain for which she takes Percocet at home. Reports she usually takes once daily or sometimes every other day. Reports that Tylenol does not really help her. Vitals/I&O/Wt Last Vital Signs Temp 98.3 F 07/23/20 07:33 Pulse 98 07/23/20 07:33 Resp 18 07/23/20 07:33 BP 122/71 07/23/20 07:33 Pulse Ox 93 07/23/20 07:33 07/22/20 07/23/20 07/23/20 22:59 06:59 14:59 Intake Total 120 / 1770 Output Total 400 / 400 Balance -280 / 1370 Weight last 48 hrs Weight 150.613 kg Weight 153.343 kg Physical Exam Narrative: EXAM NARRATIVE: Exam shows clear lungs and regular heart. No pitting lower extremity edema. Data : 07/23/20 04:21 07/23/20 04:21 Micro: Microbiology 07/22/20 14:45 C.difficile Toxin B Gene (PCR) - Final Stool Occult Blood (FIT) - Final A&P Assessment and plan (1) Weakness generalized: Status: Acute (2) Requires assistance with activities of daily living (ADL): Status: Acute (3) Morbid obesity with BMI of 50.0-59.9, adult: Status: Acute (4) Anemia: Status: Acute (5) Upper GI bleed: Status: Acute (6) Acute kidney injury: Status: Acute (7) Aortic valve stenosis: Status: Acute Qualifiers: Cardiac valve disease etiology: etiology unspecified Qualified Code(s): I35.0 - Nonrheumatic aortic (valve) stenosis (8) Major depressive disorder, recurrent, moderate: Status: Acute (9) Generalized anxiety disorder: Status: Acute (10) Diarrhea: Status: Acute (11) Abdominal pain: Status: Acute (12) Dehydration with hyponatremia: Status: Acute Additional A&P Information PLAN: We will restart patient's Percocet. We will give 40 mg of potassium phosphate. Encouraged oral intake. Continue physical therapy. Awaiting placement. Attestations Medical Necessity Statement*: Patient requires observation until placed in nursing facility. Coding Level of Care Code Acute Electroencephalographic Technician for Jose Fwavis Diagnoses Weakness generalized R53.1 Requires assistance with activities of daily living (ADL) Z74.1 Morbid obesity with BMI of 50.0-59.9, adult E66.01; Z68.43 Anemia D64.9 Upper GI bleed K92.2 Acute kidney injury N17.9 Aortic valve stenosis I35.0 Cardiac valve disease etiology: etiology unspecified Major depressive disorder, recurrent, moderate F33.1 Generalized anxiety disorder F41.1 Diarrhea R19.7 Abdominal pain R10.9 Dehydration with hyponatremia E86.0; E87.1
[2020-07-23] MEDS: pantoprazole DR 40 mg Tablet PO ×2 (09:02→18:46)
[2020-07-23] MEDS: magnesium sulfate premix 2 GM/50 ML PIGGYBACK IV (09:03)
--- NOTE | 2020-07-23 12:20 | PC.CHAP ---
Pastoral Care Encounter/Spiritual Assessment Type of Contact [] Declined guest service agent visit [] Patient/Family/Request visit [] Outpatient visit [] Follow-up visit [] Physician referral [] Code/Alert [] Routine visit [] Staff referral [] Actively dying [xx] Patient sleeping [] Family support [] [] Out of room [] Palliative care [] [] Receiving care in room [] Pre-surgical visit [] Trauma [] Long length of stay [] ICU visit [] Other: Relational/Emotional Strength [] Patient feels connected with others/family/visitors/staff [] Distress [] Loneliness/isolation [] Abandonment Spirituality of Patient [] Person of Kori [] Attends Amish of their Kori [] Believes in Prayer [] Reads Bible or Adventism materials [] There are Spiritual issues to be addressed Biofuels Production Technician Interventions [] Prayer [] Active listening [] Non-anxious presence [] Spiritual/emotional support [] Crisis/trauma care [] Spiritual counseling [] Bereavement support [] Provided bereavement packet [] Provided Bible/devotional materials [] Provided toy/stuffed animal, coloring book to patient or family member [] Provided Communion [] Anointing/[place] [] Salvation [] Completed spiritual assessment [] Other: Impact on Illness or Injury [] Angry [] Fearful [] Anxious [] Often cries [] Exhaustion [] Unable to work [] Unable to attend latter day [] Unable to walk/stand [] Unable to read [] Unable to drive [] Unable to eat/drink [] Unable to sleep [] Unable to be with family [] Patient intubated [] Other: Summary Patient was asleep when guest service agent began and ended visitation rounds. Follow up is recommended. Time spent with patient 1 minute
--- NOTE | 2020-07-23 13:28 | PM.DCS ---
Discharge Providers Date of Admission: 07/21/20 06:57 Date of Discharge: July 23, 2020 Attending Provider at Admission: Elba Castillo MD Attending Provider at Discharge: Ismael Little MD Primary Care Provider: Liza Davila NP Diagnoses at Discharge Discharge Diagnosis (1) Weakness generalized: Status: Acute (2) Requires assistance with activities of daily living (ADL): Status: Acute (3) Morbid obesity with BMI of 50.0-59.9, adult: Status: Acute (4) Anemia: Status: Acute (5) Upper GI bleed: Status: Acute (6) Acute kidney injury: Status: Acute (7) Aortic valve stenosis: Status: Acute Permanent problem details: Severe. Qualifiers: Cardiac valve disease etiology: etiology unspecified Qualified Code(s): I35.0 - Nonrheumatic aortic (valve) stenosis (8) Major depressive disorder, recurrent, moderate: Status: Acute (9) Generalized anxiety disorder: Status: Acute (10) Diarrhea: Status: Acute (11) Abdominal pain: Status: Acute (12) Dehydration with hyponatremia: Status: Acute Reason for Visit Reason for Visit: WEAKNESS Hospital Course Hospital Course Patient with complex past medical history recently discharged home after patient refused to consider long-term facility. She presented back to the hospital after she slid onto the floor and could not get up because of generalized weakness. Patient was admitted and placement to nursing facility was requested. She was accepted today and will be discharged. Please refer to discharge summary performed on 07/20/2020 for more details. Patient to follow-up with Liza Davila NP with blood work to be performed and if patient's anemia improves decision will be made regarding initiation of Eliquis and likely at the lower dose 2.5 g twice daily. Hemoglobin and platelets appear to be stable around 9 and 150 respectively. Physical Exam Narrative: EXAM NARRATIVE: As per my note earlier today. Discharge Data Data Completed and Pending: Completed Studies During Hospitalization Category Date Time Status US gall bladder 7 [id number] Routine Ultrasound 07/21/20 09:11 Completed Pending at discharge Category Date Time Status Complete Blood Co unt w/Auto AM LABS Lab 07/24/20 04:00 Ordered Comprehensive Met abolic Panel AM LA BS Lab 07/24/20 04:00 Ordered Magnesium AM LABS Lab 07/24/20 04:00 Ordered Phosphorus AM LAB S Lab 07/24/20 04:00 Ordered Labs from last 24 hours 07/23/20 07/23/20 04:21 04:21 WBC 5.1 RBC 3.57 L Hgb 9.1 L Hct 30.2 L MCV 84.6 D MCH 25.5 L MCHC 30.1 RDW 23.5 H Plt Count 145 MPV 10.8 H Neut % (Auto) 59.1 Lymph % (Auto) 19.7 [place] % (Auto) 17.1 Eos % (Auto) 3.5 Baso % (Auto) 0.4 Neut # (Auto) 3.00 Lymph # (Auto) 1.0 [place] # (Auto) 0.9 Eos # (Auto) 0.2 Baso # (Auto) 0.0 Nucleated RBC % (a uto) 0 Nucleated RBCs # 0.0 Sodium 137 Potassium 3.6 Chloride 105 Carbon Dioxide 23 Anion Gap 12.6 BUN 17 Creatinine 0.9 GFR Calculation 65.5 L Glucose 88 Calculated Osmolal ity 285 Calcium 9.0 Phosphorus 2.0 L Magnesium 1.8 Total Bilirubin 0.9 AST 29 ALT 24 Alkaline Phosphata se 268 H Total Protein 6.0 L Albumin 2.7 L Globulin 3.3 Vitals: Last Vital Signs Temp 98.2 F 07/23/20 11:32 Pulse 93 07/23/20 11:32 Resp 17 07/23/20 11:32 BP 117/71 07/23/20 11:32 Pulse Ox 93 07/23/20 11:32 Discharge Plan Discharge Patient Disposition: Xfer SNF Condition: Stable Prescriptions: New oxycodone-acetaminophen 5-325 mg Tablet 1 tab PO DAILY PRN (Reason: Pain) Qty: 10 RF: 0 Continued gabapentin 300 mg capsule 300 mg PO BEDTIME@22 RF: 0 levothyroxine 100 mcg capsule 100 mcg PO DAILY@06 RF: 0 montelukast [Singulair] 10 mg tablet 10 mg PO DAILY@22 RF: 0 spironolactone 25 mg tablet 25 mg PO DAILY@06 RF: 0 albuterol sulfate 90 mcg/actuation HFA aerosol inhaler 2 puff INHALATION Q6H PRN (Reason: Shortness Of Breath) RF: 0 loratadine 10 mg capsule 10 mg PO DAILY@06 RF: 0 zonisamide 100 mg capsule See Rx Instructions .ROUTE .COMPLEX Qty: 540 RF: 1 baclofen 10 mg Tablet 10 mg PO TID PRN (Reason: Muscle Spasm) RF: 0 paroxetine HCl [Paxil] 10 mg tablet 10 mg PO BEDTIME@22 RF: 0 aripiprazole [Abilify] 5 mg tablet 5 mg PO DAILY@22 RF: 0 rosuvastatin [Crestor] 40 mg Tablet 40 mg PO DAILY@22 RF: 0 albuterol sulfate 2.5 mg /3 mL (0.083 %) solution for nebulization 2.5 mg inhalation Q6H PRN (Reason: Shortness Of Breath) RF: 0 sennosides-docusate sodium [Senexon-S] 8.6-50 mg tablet 1 tab PO DAILY PRN (Reason: Constipation) RF: 0 simvastatin 40 mg tablet 40 mg PO DAILY RF: 0 potassium chloride [Klor-Con M20] 20 mEq tablet,ER particles/crystals 20 meq PO BID RF: 0 nitroglycerin [Nitrostat] 0.4 mg Tablet, Sublingual 0.4 mg SUBLINGUAL Q5M PRN (Reason: Chest Pain) RF: 0 fluticasone propionate 50 mcg/actuation spray,suspension 1 - 2 spray INTRANASAL DAILY PRN (Reason: unknown) RF: 0 pantoprazole 40 mg Tablet,Delayed Release (Dr/Ec) 40 mg PO BID Qty: 60 RF: 0 ferrous sulfate 325 mg (65 mg iron) Tablet,Delayed Release (Dr/Ec) 325 mg PO EVERY OTHER DAY Qty: 60 RF: 0 bupropion HCl 150 mg tablet sustained-release 12 hr 150 mg PO BID@06,22 RF: 0 Discontinued oxycodone-acetaminophen 5-325 mg Tablet 1 tab PO Q4H PRN (Reason: Pain) RF: 0 Discharge Orders: Discharge Order (Routine); Ordered 07/23/20 Ordered By: Ismael Little Referrals: Liza Davila NP [Primary Care Provider] - 1-3 days Discharge Diet: Usual diet Discharge Activity: Increase activity as tolerated Activity Restrictions/Additional Instructions: Please call your doctor or present to emergency department if your condition worsens or you develop diarrhea, lightheadedness, fatigue or see blood in your stool or black stool. Please follow-up with your primary care physician as well as Dr. Riddle's office. Records are being sent to Dr. Sousa to evaluate you for aortic valve surgery/TAVR. Please note that you have blood work pending next Sunday during your evaluation by Liza Davila and at that time decision will be made regarding initiation of Eliquis. Likely at the lower dose 2.5 mg twice daily. Discharge Attestations Time Spent in Discharge Care*: less than 30 min Quality Metrics Clinical Quality Measures During this hospital stay, did patient experience: None Coding Level of Care Code Acute Mallet Cutter for Chg Fwd Diagnoses Weakness generalized R53.1 Requires assistance with activities of daily living (ADL) Z74.1 Morbid obesity with BMI of 50.0-59.9, adult E66.01; Z68.43 Anemia D64.9 Upper GI bleed K92.2 Acute kidney injury N17.9 Aortic valve stenosis I35.0 Cardiac valve disease etiology: etiology unspecified Major depressive disorder, recurrent, moderate F33.1 Generalized anxiety disorder F41.1 Diarrhea R19.7 Abdominal pain R10.9 Dehydration with hyponatremia E86.0; E87.1
[2020-07-23] MEDS: oxyCODONE-APAP 5-325 mg Tablet 1 TAB PO (15:17)
--- NOTE | 2020-07-23 17:04 | PC.OT ---
OT tx attempted. Pt states I am supposed to be discharging to [facility] . When therapist provided pt with tx options pt states none of the above . If pt is here tomorrow OT will attempt tx again.
[2020-07-23] MEDS: montelukast sodium 10 mg Tablet PO (23:04)
[2020-07-23] MEDS: baclofen 10 mg Tablet PO (23:06)
[2020-07-24] VITALS (8 sets, daily range): BP systolic 116–170; BP diastolic 65–80; PULSE 93–107; RESP 16–22; TEMP 36.5–36.8; O2SAT 93–96
[2020-07-24 05:15] LABS: Alanine Aminotransferase 22 U/L (0-33); Albumin Level 2.6 g/dL (3.5-5.2); Alkaline Phosphatase 258 IU/L (35-105); Blood Urea Nitrogen 16 mg/dL (6-20); Calcium 8.7 mg/dL (8.5-10.5); Carbon Dioxide 24 mmol/L (22-29); Chloride 106 mmol/L (98-107); Globulin 3.1 g/dL (1.3-4.6); Glomerular Filtration Rate 87.5 mL/min (90-130); Glucose 84 mg/dL (65-115); Magnesium 1.8 mg/dL (1.7-2.3); Osmolality Calculated 284 mOsm/kg (285-295); Phosphorus 2.7 mg/dL (2.5-4.5); Sodium 137 mmol/L (136-145); Total Protein 5.7 g/dL (6.6-8.7)
[2020-07-24 05:22] LABS: Anion Gap 10.9 (5-19); Aspartate Amino Transferase 30 U/L (0-32); Potassium 3.9 mmol/L (3.5-5.1)
[2020-07-24] MEDS: loratadine 10 mg Tablet PO (06:05)
[2020-07-24] MEDS: pantoprazole DR 40 mg Tablet PO ×2 (08:35→17:57)
[2020-07-24 09:51] LABS: Basophils % 0.4 %; Eosinophils # 0.2 10^3/uL (0.0-0.8); Eosinophils % 3.8 %; Hematocrit 29.3 % (37.0-47.0); Hemoglobin 9.3 g/dL (11.5-15.3); Lymphocytes # 0.8 10^3/uL (0.8-4.8); Lymphocytes % 16.5 %; Mean Corpuscular HGB Conc 31.7 g/dL (30.0-36.0); Mean Corpuscular Hemoglobin 25.8 pg (28.0-34.0); Mean Corpuscular Volume 81.2 fL (81-99); Mean Platelet Volume 10.9 fL (7.4-10.4); Monocytes # 0.7 10^3/uL (0.2-0.9); Monocytes % 15.2 %; Neutrophils # 3.08 10^3/uL (1.8-7.7); Neutrophils % 64.1 %; Nucleated Red Blood Cells % 0 %; Platelet Count 128 10^3/cmm (130-400); Red Blood Count 3.61 10^6/uL (4.1-5.3); Red Cell Distribution Width 23.4 % (12.1-15.1); White Blood Count 4.8 10^3/uL (4.0-10.0)
[2020-07-24 10:21] LABS: Slide Review Slide Review Perform
--- NOTE | 2020-07-24 10:21 | PM.PN ---
Subjective Subjective: Interval history: Patient denies shortness of breath or chest pain. For some reason she was not discharged yesterday. Vitals/I&O/Wt Last Vital Signs Temp 98.2 F 07/24/20 07:52 Pulse 97 07/24/20 07:52 Resp 18 07/24/20 07:52 BP 131/65 07/24/20 07:52 Pulse Ox 94 07/24/20 07:52 07/23/20 07/24/20 07/24/20 22:59 06:59 14:59 Intake Total 120 / 880 240 / 1120 360 / 360 Output Total 400 / 400 Balance -280 / 480 240 / 720 360 / 360 Weight last 48 hrs Weight 150.956 kg Weight 150.613 kg Physical Exam Narrative: EXAM NARRATIVE: Lungs are clear and heart is regular. Data : 07/23/20 04:21 07/24/20 04:32 Micro: Microbiology 07/22/20 14:45 Enteric Pathogens (PCR) - Final Stool C.difficile Toxin B Gene (PCR) - Final Occult Blood (FIT) - Final A&P Assessment and plan (1) Weakness generalized: Status: Acute (2) Requires assistance with activities of daily living (ADL): Status: Acute (3) Morbid obesity with BMI of 50.0-59.9, adult: Status: Acute (4) Anemia: Status: Acute (5) Upper GI bleed: Status: Acute (6) Acute kidney injury: Status: Acute (7) Aortic valve stenosis: Status: Acute Qualifiers: Cardiac valve disease etiology: etiology unspecified Qualified Code(s): I35.0 - Nonrheumatic aortic (valve) stenosis (8) Major depressive disorder, recurrent, moderate: Status: Acute (9) Generalized anxiety disorder: Status: Acute (10) Diarrhea: Status: Acute (11) Abdominal pain: Status: Acute (12) Dehydration with hyponatremia: Status: Acute Additional A&P Information PLAN: Patient is planned to be dismissed to nursing facility. Please refer to discharge summary performed yesterday. No medication changes. Attestations Medical Necessity Statement*: Plan to dismiss patient to nursing facility today. Coding Level of Care Code Acute Shrink Pit Supervisor for Jose Graham Diagnoses Weakness generalized R53.1 Requires assistance with activities of daily living (ADL) Z74.1 Morbid obesity with BMI of 50.0-59.9, adult E66.01; Z68.43 Anemia D64.9 Upper GI bleed K92.2 Acute kidney injury N17.9 Aortic valve stenosis I35.0 Cardiac valve disease etiology: etiology unspecified Major depressive disorder, recurrent, moderate F33.1 Generalized anxiety disorder F41.1 Diarrhea R19.7 Abdominal pain R10.9 Dehydration with hyponatremia E86.0; E87.1
--- NOTE | 2020-07-24 10:53 | PC.CHAP ---
Pastoral Care Encounter/Spiritual Assessment Type of Contact [] Declined supervisor wound visit [] Patient/Family/Request visit [] Outpatient visit [XX] Follow-up visit [] Physician referral [] Code/Alert [] Routine visit [] Staff referral [] Actively dying [] Patient sleeping [] Family support [] [] Out of room [] Palliative care [] [] Receiving care in room [] Pre-surgical visit [] Trauma [] Long length of stay [] ICU visit [] Other: Relational/Emotional Strength [XX] Patient feels connected with others/family/visitors/staff [] Distress [] Loneliness/isolation [] Abandonment Spirituality of Patient [] Person of Kori [] Attends Congregational of their [place] [] Believes in Prayer [] Reads Bible or Religion materials [] There are Spiritual issues to be addressed Starter Cup Powder Mixer Interventions [] Prayer [XX] Active listening [XX] Non-anxious presence [] Spiritual/emotional support [] Crisis/trauma care [] Spiritual counseling [] Bereavement support [] Provided bereavement packet [] Provided Bible/devotional materials [] Provided toy/stuffed animal, coloring book to patient or family member [] Provided Communion [] Anointing/[place] [] Salvation [XX] Completed spiritual assessment [] Other: Impact on Illness or Injury [] Angry [] Fearful [] Anxious [] Often cries [] Exhaustion [] Unable to work [] Unable to attend adventist [] Unable to walk/stand [] Unable to read [] Unable to drive [] Unable to eat/drink [] Unable to sleep [] Unable to be with family [] Patient intubated [XX] Other: Needs to regain strength in order to go home. Pt lives alone. She wants to be home. Summary: remembers this pt from previous hospitalization. She states that she was home for only 4 hours before she was readmitted. This time, she reports that the focus is for her to regain her strength so that she can return home (she lives alone). This time, the plan (per pt report) is to be discharged to [facility] for rehab before going home. She has a niece and brother who are able to visit her. Pt declines any spiritual interventions (eg., Daily Bread, prayer). Time spent with patient: 10 mins
[2020-07-24] MEDS: oxyCODONE-APAP 5-325 mg Tablet 1 TAB PO (19:56)
[2020-07-24] MEDS: montelukast sodium 10 mg Tablet PO (22:31)
[2020-07-25] VITALS (7 sets, daily range): BP systolic 122–174; BP diastolic 68–83; PULSE 102–111; RESP 12–20; TEMP 36.4–36.9; O2SAT 90–96
[2020-07-25] MEDS: baclofen 10 mg Tablet PO (04:28)
[2020-07-25] MEDS: loratadine 10 mg Tablet PO (05:57)
[2020-07-25] MEDS: pantoprazole DR 40 mg Tablet PO ×2 (08:12→17:39)
[2020-07-25] MEDS: ondansetron 4 MG Tablet PO (09:42)
--- NOTE | 2020-07-25 10:42 | P.PN_ITS ---
Subjective Subjective: Interval history: Patient reports that yesterday evening she became nauseous shortly after eating supper. She also developed severe abdominal pain the same time. This morning she reports that her abdominal pain which is mostly epigastric area is 6 out of 10. She continues to be nauseous. Reports that she is passing gas and had soft bowel movement yesterday. Vitals/I&O/Wt Last Vital Signs Temp 97.5 F L 07/25/20 07:31 Pulse 103 H 07/25/20 07:49 Resp 18 07/25/20 07:49 BP 152/74 07/25/20 07:31 Pulse Ox 96 07/25/20 07:49 07/24/20 07/25/20 07/25/20 22:59 06:59 14:59 Intake Total 480 / 1080 240 / 240 Output Total 200 / 200 Balance 280 / 880 240 / 240 Weight last 48 hrs Weight 155.129 kg Weight 150.956 kg Physical Exam Narrative: EXAM NARRATIVE: Lungs are clear and heart is regular. Abdomen is soft tender to palpation at epigastric area. Data : 07/24/20 09:30 07/24/20 04:32 A&P Assessment and plan (1) Weakness generalized: Status: Acute (2) Requires assistance with activities of daily living (ADL): Status: Acute (3) Morbid obesity with BMI of 50.0-59.9, adult: Status: Acute (4) Anemia: Status: Acute (5) Upper GI bleed: Status: Acute (6) Acute kidney injury: Status: Acute (7) Aortic valve stenosis: Status: Acute Qualifiers: Cardiac valve disease etiology: etiology unspecified Qualified Code(s): I35.0 - Nonrheumatic aortic (valve) stenosis (8) Major depressive disorder, recurrent, moderate: Status: Acute (9) Generalized anxiety disorder: Status: Acute (10) Diarrhea: Status: Acute (11) Abdominal pain: Status: Acute (12) Dehydration with hyponatremia: Status: Acute Additional A&P Information PLAN: Repeat labs this morning. Obtain CT scan of abdomen pelvis. Switch diet to n.p.o. for now. Continue with physical therapy. Attestations Medical Necessity Statement*: Patient was abdominal pain and nausea requires close inpatient monitoring, evaluation and treatment. Coding Level of Care Code Acute Ammonia Solution Preparer for Chg Fwd Diagnoses Weakness generalized R53.1 Requires assistance with activities of daily living (ADL) Z74.1 Morbid obesity with BMI of 50.0-59.9, adult E66.01; Z68.43 Anemia D64.9 Upper GI bleed K92.2 Acute kidney injury N17.9 Aortic valve stenosis I35.0 Cardiac valve disease etiology: etiology unspecified Major depressive disorder, recurrent, moderate F33.1 Generalized anxiety disorder F41.1 Diarrhea R19.7 Abdominal pain R10.9 Dehydration with hyponatremia E86.0; E87.1
--- NOTE | 2020-07-25 10:46 | CTR_ITS ---
PROCEDURE INFORMATION: Exam: CT Abdomen And Pelvis With Contrast Exam date and time: 07/25/2020 11:49 AM Age: 54 years old Clinical indication: Abdominal pain; Patient HX: C/O epigastric pain w nausea; Additional info: Abdominal pain, nausea TECHNIQUE: Imaging protocol: Computed tomography of the abdomen and pelvis with contrast. Radiation optimization: All CT scans at this facility use at least one of these dose optimization techniques: automated exposure control; mA and/or kV adjustment per patient size (includes targeted exams where dose is matched to clinical indication); or iterative reconstruction. Contrast material: OMNI 300; Contrast volume: 95 ml; Contrast route: INTRAVENOUS (IV); COMPARISON: CT abdomen wo con [id number] 01/28/2019 3:54 PM RADIATION DOSE METRICS: Total DLP (mGy-cm): 1816.7 FINDINGS: Lungs: There is bibasilar atelectasis. Pleural spaces: There is a small right pleural effusion with surrounding enhancing pleura. This is unchanged. It may represent an empyema. Liver: There is a mildly lobulated contour of the liver. This could indicate hepatic cirrhosis. No liver masses are seen. Gallbladder and bile ducts: There are numerous small stones in the gallbladder. There is no pericholecystic fluid. The bile ducts are normal. Pancreas: Normal. No ductal dilation. Spleen: Normal. No splenomegaly. Adrenal glands: Normal. No mass. Kidneys and ureters: There are bilateral renal calculi. There is a 9 mm calculus in the right renal pelvis. There is no significant hydronephrosis. No enhancing masses are seen. Stomach and bowel: There is mural edema of the cecum and ascending colon. This is also most likely due to portal hypertension but an infectious colitis cannot be excluded. Clinical correlation is advised. Appendix: No evidence of appendicitis. Intraperitoneal space: There is a small ascites. Vasculature: There is calcification of the aorta. There is no aneurysm. There is increased hazy density of the intra-abdominal fat. This is probably related to portal hypertension. Lymph nodes: Unremarkable. No enlarged lymph nodes. Urinary bladder: Unremarkable as visualized. Reproductive: Unremarkable as visualized. Bones/joints: Unremarkable. No acute fracture. Soft tissues: Unremarkable. CT/CT abdomen pelvis w con* [id number] IMPRESSION: 1. Small right pleural effusion with surrounding pleural enhancement suspicious for empyema. 2. Decreased size of the liver with a mildly lobulated contour which may be due to hepatic cirrhosis. 3. Small ascites, hazy infiltration of the intra-abdominal fat and mural thickening of the cecum and ascending colon most likely related to portal hypertension. 4. An infectious colitis of the ascending colon cannot be excluded. 5. Cholelithiasis. 6. Nonobstructive bilateral nephrolithiasis. Radiation Dose CTDIVOL = (mGy): DLP = 1816.7 (mGy-cm)
[2020-07-25 11:23] LABS: Basophils % 0.2 %; Eosinophils # 0.1 10^3/uL (0.0-0.8); Eosinophils % 1.6 %; Hematocrit 30.9 % (37.0-47.0); Hemoglobin 9.7 g/dL (11.5-15.3); Lymphocytes # 0.9 10^3/uL (0.8-4.8); Mean Corpuscular HGB Conc 31.4 g/dL (30.0-36.0); Mean Corpuscular Hemoglobin 25.7 pg (28.0-34.0); Mean Platelet Volume 11.1 fL (7.4-10.4); Monocytes # 0.6 10^3/uL (0.2-0.9); Monocytes % 11.1 %; Neutrophils # 4.09 10^3/uL (1.8-7.7); Neutrophils % 71.9 %; Nucleated Red Blood Cells % 0 %; Platelet Count 133 10^3/cmm (130-400); Red Blood Count 3.77 10^6/uL (4.1-5.3); Red Cell Distribution Width 24.1 % (12.1-15.1); White Blood Count 5.7 10^3/uL (4.0-10.0)
[2020-07-25 11:25] LABS: Alanine Aminotransferase 22 U/L (0-33); Albumin Level 2.9 g/dL (3.5-5.2); Alkaline Phosphatase 273 IU/L (35-105); Anion Gap 13.1 (5-19); Aspartate Amino Transferase 26 U/L (0-32); Blood Urea Nitrogen 17 mg/dL (6-20); Carbon Dioxide 22 mmol/L (22-29); Chloride 102 mmol/L (98-107); Globulin 3.4 g/dL (1.3-4.6); Glucose 102 mg/dL (65-115); Osmolality Calculated 278 mOsm/kg (285-295); Potassium 4.1 mmol/L (3.5-5.1); Sodium 133 mmol/L (136-145); Total Protein 6.3 g/dL (6.6-8.7)
[2020-07-25] MEDS: iohexol 300 mg/mL 100 mL Btl IV (13:20)
[2020-07-25] MEDS: montelukast sodium 10 mg Tablet PO (23:04)
[2020-07-25] MEDS: gabapentin 300 mg Capsule PO (23:05)
[2020-07-25] MEDS: buPROPion SR (12 HR) 150 mg Tablet PO (23:05)
[2020-07-25] MEDS: metoprolol tartrate 25 mg Tablet PO (23:05)
[2020-07-26] VITALS: BP 109/69; PULSE 74; RESP 14; TEMP 36.9; O2SAT 91
[2020-07-26 04:00] VITALS: BP 116/56; PULSE 76; RESP 14; TEMP 36.8; O2SAT 90
[2020-07-26] MEDS: spironolactone 25 mg Tablet PO (05:45)
[2020-07-26] MEDS: loratadine 10 mg Tablet PO (05:45)
[2020-07-26] MEDS: buPROPion SR (12 HR) 150 mg Tablet PO ×2 (05:45→21:03)
[2020-07-26] MEDS: levothyroxine 100 mcg Tablet PO (05:45)
[2020-07-26 06:25] LABS: Basophils % 0.4 %; Eosinophils # 0.3 10^3/uL (0.0-0.8); Eosinophils % 4.6 %; Hematocrit 28.5 % (37.0-47.0); Hemoglobin 8.9 g/dL (11.5-15.3); Lymphocytes # 1.1 10^3/uL (0.8-4.8); Lymphocytes % 19.6 %; Mean Corpuscular HGB Conc 31.2 g/dL (30.0-36.0); Mean Corpuscular Hemoglobin 25.6 pg (28.0-34.0); Mean Corpuscular Volume 81.9 fL (81-99); Mean Platelet Volume 10.6 fL (7.4-10.4); Monocytes # 0.7 10^3/uL (0.2-0.9); Monocytes % 13.2 %; Neutrophils # 3.37 10^3/uL (1.8-7.7); Neutrophils % 61.8 %; Nucleated Red Blood Cells % 0 %; Platelet Count 107 10^3/cmm (130-400); Red Blood Count 3.48 10^6/uL (4.1-5.3); Red Cell Distribution Width 24.4 % (12.1-15.1); White Blood Count 5.5 10^3/uL (4.0-10.0)
[2020-07-26 06:45] LABS: Alanine Aminotransferase 20 U/L (0-33); Albumin Level 2.7 g/dL (3.5-5.2); Alkaline Phosphatase 235 IU/L (35-105); Aspartate Amino Transferase 20 U/L (0-32); Blood Urea Nitrogen 18 mg/dL (6-20); Calcium 8.5 mg/dL (8.5-10.5); Carbon Dioxide 26 mmol/L (22-29); Chloride 107 mmol/L (98-107); Globulin 2.9 g/dL (1.3-4.6); Glomerular Filtration Rate 87.5 mL/min (90-130); Glucose 84 mg/dL (65-115); Osmolality Calculated 289 mOsm/kg (285-295); Sodium 139 mmol/L (136-145); Total Protein 5.6 g/dL (6.6-8.7)
[2020-07-26 07:59] LABS: Slide Review Slide Review Perform
[2020-07-26 08:00] VITALS: BP 97/53; PULSE 71; RESP 18; TEMP 37.1; O2SAT 91
[2020-07-26] MEDS: pantoprazole DR 40 mg Tablet PO ×2 (09:58→17:30)
[2020-07-26] MEDS: metoprolol tartrate 25 mg Tablet 12.5 MG PO ×2 (10:51→21:03)
[2020-07-26 11:24] VITALS: BP 110/74; PULSE 68; RESP 16; TEMP 37.1; O2SAT 95
[2020-07-26 16:00] VITALS: BP 99/47; PULSE 86; RESP 16; TEMP 36.8; O2SAT 94
--- NOTE | 2020-07-26 18:34 | P.PN_ITS ---
Subjective Subjective: Interval history: This afternoon she reports that her nausea is gone. She would like to try some clear liquids. Denies abdominal pain. Denies watery diarrhea. Last bowel movement was soft, reports 2 days ago. Denies chest pain. Has mild intermittent chronic cough without any worsening. No phlegm. Denies shortness of breath. Denies chest pain. Vitals/I&O/Wt Last Vital Signs Temp 98.2 F 07/26/20 16:00 Pulse 86 07/26/20 16:00 Resp 16 07/26/20 16:00 BP 99/47 07/26/20 16:00 Pulse Ox 94 07/26/20 16:00 07/26/20 07/26/20 07/26/20 06:59 14:59 22:59 Intake Total 0 / 0 0 / 0 Output Total 300 / 300 Balance -300 / -300 0 / -300 Weight last 48 hrs Weight 154.131 kg Weight 155.129 kg Physical Exam Const: COMMON NORMALS: no acute distress and patient oriented x3 GENERAL APPEARANCE: cooperative and comfortable NUTRITIONAL APPEARANCE: obese OTHER: Wakes up easily, but also falls asleep easily as well. HENMT: COMMON NORMALS: oropharynx normal Neck/C-Spine: COMMON NORMALS: no JVD Resp: COMMON NORMALS: normal respiratory effort and clear to auscultation bilaterally AUSCULTATION: clear to auscultation bilaterally Cardio: COMMON NORMALS: no JVD, regular rhythm, S1 normal heart sound present, S2 normal heart sound present and No murmurs present (Cardio) RHYTHM: regular rhythm HEART SOUNDS: S1 normal heart sound present and S2 normal heart sound present GI: COMMON NORMALS: Normal to inspection, nondistended, normoactive bowel sounds present, Soft to palpation and non-tender PALPATION: Yes Soft to palpation Extremity: COMMON NORMALS: no joint enlargement OTHER: Chronic severe nonpitting edema Neuro: COMMON NORMALS: patient oriented x3 and moves all extremities Skin: COMMON NORMALS: no rashes or lesions noted GENERAL SKIN EXAM: no rashes or lesions noted Data : 07/26/20 06:06 07/26/20 06:06 Micro: Microbiology 07/26/20 06:06 Blood Culture - Preliminary Blood SPECIMEN COLLECTED 07/26/20 06:08 Blood Culture - Preliminary Blood SPECIMEN COLLECTED A&P Assessment and plan (1) Weakness generalized: Check TSH. Check ammonia given possible cirrhosis on imaging. Discussed with her possible ascending colitis. She has not had diarrhea. Has no chest pain. She has been maintained n.p.o. due to nausea yesterday, however, this has resolved. She is wanting to try clear liquids. We will try. For now continue to monitor without antibiotics. She reports she is overall doing all right. She does appear to be falling asleep quite easily. In addition to the above tests we will check ABG. Would benefit from sleep study. If continues to do well, and additional assessment unremarkable, plans have been for her to proceed to additional rehabilitation at SNF, as well as outpatient ar rangements for severe aortic valve stenosis repair as per cardiology, as well as follow-up with thoracic surgery regarding incidental findings in the right lower lung, with enhancement of pleura, small effusion with debris, although my understanding is this is thought to be perhaps more chronic finding although acute empyema was considered as he is my understanding and had been discussed with her. This appears to be unchanged on CT abdomen pelvis 07/25. Will assess procalcitonin. Follow up repeat blood cultures. Status: Acute (2) Requires assistance with activities of daily living (ADL): Arrangements underway for additional rehabilitation at SNF. Status: Acute (3) Morbid obesity with BMI of 50.0-59.9, adult: Status: Acute (4) Anemia: Status: Acute (5) Upper GI bleed: Eliquis due to history of DVT and PE in 2018 is on hold. Monitor hemoglobin. Status: Acute (6) Acute kidney injury: Improved. Status: Acute (7) Aortic valve stenosis: Pending additional assessment and management of severe aortic stenosis as per cardiology referral to [place]. Status: Acute Qualifiers: Cardiac valve disease etiology: etiology unspecified Qualified Code(s): I35.0 - Nonrheumatic aortic (valve) stenosis (8) Major depressive disorder, recurrent, moderate: Status: Acute (9) Generalized anxiety disorder: Status: Acute (10) Diarrhea: Resolved. Status: Acute (11) Dehydration with hyponatremia: Improved. Status: Acute Additional A&P Information Possible mild ascending colitis not excluded, although symptomatically does not appear to be the case. Discussed findings with her. She reports is actually hungry and would like to try some clear liquids. We will go ahead and give trial, monitor. Attestations Medical Necessity Statement*: Continue admission for assessment of management of generalized weakness, initiation of diet with possible minimal ascending colitis reassessment of blood cultures in the setting of possible bacteremia during prior admission, right lower lung pleural enhancement and small persistent effusion, in the setting of severe aortic valve stenosis, with history of DVT and PE on chronic anticoagulation, but with worsening anemia. Dispo planning. Coding Level of Care Code Acute Cnc Field Service Engineer for g Fwd Diagnoses Weakness generalized R53.1 Requires assistance with activities of daily living (ADL) Z74.1 Morbid obesity with BMI of 50.0-59.9, adult E66.01; Z68.43 Anemia D64.9 Upper GI bleed K92.2 Acute kidney injury N17.9 Aortic valve stenosis I35.0 Cardiac valve disease etiology: etiology unspecified Major depressive disorder, recurrent, moderate F33.1 Generalized anxiety disorder F41.1 Diarrhea R19.7 Dehydration with hyponatremia E86.0; E87.1
[2020-07-26 20:00] VITALS: BP 142/63; PULSE 77; RESP 16; TEMP 36.4; O2SAT 94
[2020-07-26] MEDS: gabapentin 300 mg Capsule PO (21:02)
[2020-07-26] MEDS: montelukast sodium 10 mg Tablet PO (21:02)
[2020-07-26] MEDS: ARIPiprazole 10 mg Tablet 5 MG PO (21:03)
[2020-07-26] MEDS: atorvastatin 40 mg Tablet 80 MG PO (21:03)
[2020-07-27] VITALS (7 sets, daily range): BP systolic 105–127; BP diastolic 64–76; PULSE 76–98; RESP 14–18; TEMP 36.4–37; O2SAT 90–95
[2020-07-27] MEDS: baclofen 10 mg Tablet PO (00:32)
[2020-07-27 05:49] LABS: Ammonia 84 umol/L (11-51)
[2020-07-27 05:53] LABS: Basophils % 0.5 %; Eosinophils # 0.3 10^3/uL (0.0-0.8); Hemoglobin 10.2 g/dL (11.5-15.3); Lymphocytes # 1.2 10^3/uL (0.8-4.8); Lymphocytes % 21.2 %; Mean Corpuscular Volume 86.7 fL (81-99); Mean Platelet Volume 10.1 fL (7.4-10.4); Monocytes # 0.9 10^3/uL (0.2-0.9); Monocytes % 16.2 %; Neutrophils # 3.07 10^3/uL (1.8-7.7); Neutrophils % 55.7 %; Nucleated Red Blood Cells # 0.1 /100WBC; Nucleated Red Blood Cells % 0.9 %; Platelet Count 124 10^3/cmm (130-400); Red Blood Count 3.92 10^6/uL (4.1-5.3); Red Cell Distribution Width 25.2 % (12.1-15.1); White Blood Count 5.5 10^3/uL (4.0-10.0)
[2020-07-27 05:56] LABS: Procalcitonin 0.34 ng/mL (0-0.5)
[2020-07-27 06:26] LABS: Slide Review Slide Review Perform
[2020-07-27] MEDS: spironolactone 25 mg Tablet PO (06:32)
[2020-07-27] MEDS: loratadine 10 mg Tablet PO (06:32)
[2020-07-27] MEDS: buPROPion SR (12 HR) 150 mg Tablet PO (06:32)
[2020-07-27] MEDS: levothyroxine 100 mcg Tablet PO (06:32)
[2020-07-27 07:09] LABS: Alanine Aminotransferase 21 U/L (0-33); Albumin Level 2.9 g/dL (3.5-5.2); Alkaline Phosphatase 251 IU/L (35-105); Aspartate Amino Transferase 24 U/L (0-32); Blood Urea Nitrogen 19 mg/dL (6-20); Calcium 8.6 mg/dL (8.5-10.5); Carbon Dioxide 24 mmol/L (22-29); Chloride 104 mmol/L (98-107); Globulin 2.6 g/dL (1.3-4.6); Glucose 86 mg/dL (65-115); Osmolality Calculated 290 mOsm/kg (285-295); Sodium 139 mmol/L (136-145); Total Bilirubin 1.2 mg/dL (0.15-1.2); Total Protein 5.5 g/dL (6.6-8.7)
[2020-07-27] MEDS: metoprolol tartrate 25 mg Tablet 12.5 MG PO (08:37)
[2020-07-27] MEDS: pantoprazole DR 40 mg Tablet PO (08:37)
[2020-07-27] MEDS: ferrous sulfate EC 325 mg Tablet PO (08:37)
[2020-07-27 10:02] LABS: ABG PCO2 42.5 mmHg (35-45); ABG PH Result 7.42 (7.35-7.45); Arterial Blood Gas Hematocrit 28.3 % (37-47); Base Excess ABG 2.6 mmol/L (-2.0-2.0); Blood Gas Allen Test Pos; Blood Gas Operator Identificat CAK; Blood Gas Sample Site Radial, left; Blood Gas Sample Type Arterial; HCO3 ABG 27.4 mmol/L (22-26); Oxygen Device ROOM AIR
[2020-07-27] MEDS: lactulose oral liq 20 gm/30 mL UDC PO (10:23)
--- NOTE | 2020-07-27 13:00 | P.DS_ITS ---
Discharge Providers Date of Admission: 07/21/20 06:57 Date of Discharge: July 27, 2020 Attending Provider at Admission: Elba Castillo MD Attending Provider at Discharge: Juan Jose Galindo Primary Care Provider: Liza Davila NP Diagnoses at Discharge Discharge Diagnosis (1) Weakness generalized: Status: Acute (2) Requires assistance with activities of daily living (ADL): Status: Acute (3) Morbid obesity with BMI of 50.0-59.9, adult: Status: Acute (4) Anemia: Status: Acute (5) Upper GI bleed: Status: Acute (6) Acute kidney injury: Status: Acute (7) Aortic valve stenosis: Status: Acute Permanent problem details: Severe. Qualifiers: Cardiac valve disease etiology: etiology unspecified Qualified Code(s): I35.0 - Nonrheumatic aortic (valve) stenosis (8) Major depressive disorder, recurrent, moderate: Status: Acute (9) Generalized anxiety disorder: Status: Acute (10) Dehydration with hyponatremia: Status: Acute Reason for Visit Reason for Visit: WEAKNESS Hospital Course Hospital Course Pleasant 54-year-old lady initially admitted to the hospital 07/17-07/20 after presenting with dyspnea felt related to severe aortic stenosis. First hospitalization was noted to have positive multibacterial blood cultures thought to be possibly contamination, although at the time was treated with antibiotics as possible bacterial infection could not be ruled out. On CT chest noted enhancement of the pleura, small collection of fluid with debris, possibility of empyema was considered, and she was arranged for follow-up with Dr. Ho after discussion, although consideration was given that this may be more likely chronic finding. She underwent LAMINE without evidence of endocarditis. Had coronary angiography which showed no evidence of coronary disease requiring intervention. Symptoms mostly thought to be related to severe aortic stenosis. With soft blood pressures losartan as well as propranolol were discontinued. Spironolactone and potassium were continued. She was noted to have an episode of confusion after coronary angiogram. Thought to be perhaps 2 medications used for procedure including Versed and fentanyl. Unfortunately MRI could not be obtained due to technical related to her weight. She had no focal neurologic abnormalities, however. Mental status gradually returned to baseline. Mild kidney injury noted during previous utilization with maximum creatinine 1.4 resolved. Due to anemia noted during hospitalization Eliquis which she was taking for history of PE/DVT was discontinued. She underwent endoscopy which showed evidence of gastritis. Slow GI bleed suspected due to which Protonix dose was increased to twice daily. During the hospitalization received 1 unit PRBC. Eliquis was planned to be held for 1 week. Cardiology had made arrangements for her to follow-up with Dr. Sousa in [place] for evaluation for TAVR. She had at that time declined additional rehabilitation with discharge to SNF, and so was discharged home. She returned on 07/21 due to generalized weakness. Presented back after she fell on her buttocks trying to use the toilet. On presentation she received additional hydration. Gallbladder ultrasound was checked which showed normal liver without intrahepatic biliary ductal dilation, cholelithiasis, normal common bile duct. No hydronephrosis in the right kidney. She was assessed by PT and OT. Arrangements were made for placement to half-way facility for additional rehabilitation. Due to possible bacteremia versus contamination on blood cultures last admission, blood cultures were repeated, so far without any additional growth, although with final studies pending. Due to episodes of nausea and very poor appetite experienced on 07/24 she underwent additional assessment by CT abdomen pelvis with finding again of small right pleural effusion with surrounding pleural enhancement as noted previously, although remained without respiratory symptoms, doing well on room air, and without signs of sepsis or active infection. She was noted to have decreased size of the liver with mildly lobulated contour with concern for possible cirrhosis. Small ascites noted. He has infiltration of intra-abdominal fat and mural thickening of cecum ascending colon thought to be secondary to portal hypertension. Infectious colitis of ascending colon could not be excluded. Cholelithiasis is incidentally noted. Nonobstructive bilateral nephrolithiasis. Her nausea had resolved by the following day, and she was wanting to try clear liquid diet. Diet was advanced, and so far she has done well. She has had no abdominal pain. She has had no diarrhea bloody or dark stools, no nausea or vomiting. Discussed with her findings of concern of possible liver cirrhosis, as well as persistent findings in the right lower lung. With noted symptoms of generalized weakness previously, we assessed also thyroid function testing, with noted TSH 9.9. Free T3 and free T4 were requested and pending. At this time her levothyroxine dose will be adjusted up to 125 mcg. Her thyroid function will need additional follow-up. As discussed with her due to concern of possible liver cirrhosis ammonia level was checked as well, and was noted abnormal at 84. She is at this time started on lactulose, and will need additional follow-up with regards to possible liver cirrhosis. Since she is tolerating oral diet well, so far without symptoms of active colitis, she agrees for additional monitoring without antibiotics. Diet may be advanced as tolerating. Follow-up colonoscopy in 6 weeks may be considered. Given she also has not had symptoms of active pulmonary infection she for now prefers to continue monitoring without antibiotics, and follow-up with thoracic surgery in office for reassessment of the persistent pleural enhancement, pleural fluid collection. She understands that n.p.o. not excluded, although this finding is less likely, and she would prefer to hold off on invasive assessment for now in favor of outpatient follow-up. She states she feels well currently and is eager to discharge with outpatient follow up to initiate her rehabilitation. Physical Exam Const: COMMON NORMALS: no acute distress, patient oriented x3 and alert GENERAL APPEARANCE: cooperative and comfortable NUTRITIONAL APPEARANCE: obese ORIENTATION/CONSCIOUSNESS: Yes awake OTHER: Lucid. Pleasant, conversant. HENMT: COMMON NORMALS: oropharynx normal Neck/C-Spine: COMMON NORMALS: no JVD Resp: COMMON NORMALS: normal respiratory effort and clear to auscultation bilaterally AUSCULTATION: clear to auscultation bilaterally Cardio: COMMON NORMALS: no JVD, regular rhythm, S1 normal heart sound present, S2 normal heart sound present and No murmurs present (Cardio) RHYTHM: regular rhythm HEART SOUNDS: S1 normal heart sound present and S2 normal heart sound present GI: COMMON NORMALS: Normal to inspection, nondistended, normoactive bowel sounds present, Soft to palpation and non-tender PALPATION: Yes Soft to palpation Extremity: COMMON NORMALS: no joint enlargement OTHER: Chronic severe nonpitting edema Neuro: COMMON NORMALS: patient oriented x3 and moves all extremities SENSORIUM/ORIENTATION: Yes alert Skin: COMMON NORMALS: no rashes or lesions noted GENERAL SKIN EXAM: no rashes or lesions noted Discharge Data Data Completed and Pending: Completed Studies During Hospitalization Category Date Time Status CT abdomen pelvis w con* [id number] Rout ine Cat Scan 07/25/20 10:46 Completed US gall bladder 7 [id number] Routine Ultrasound 07/21/20 09:11 Completed Pending at discharge Category Date Time Status Blood Culture AM LABS Lab 07/26/20 06:06 Results Complete Blood Co unt w/Auto AM LABS Lab 07/28/20 04:00 Ordered Comprehensive Met abolic Panel AM LA BS Lab 07/28/20 04:00 Ordered Free T4 Free Thyr oxine Routine Lab 07/27/20 05:14 Received Magnesium AM LABS Lab 07/28/20 04:00 Ordered T3 Free Routine Lab 07/27/20 05:14 Received Labs from last 24 hours 07/27/20 07/27/20 07/27/20 09:51 05:14 05:14 WBC RBC Hgb Hct MCV MCH MCHC RDW Plt Count MPV Neut % (Auto) Lymph % (Auto) [place] % (Auto) Eos % (Auto) Baso % (Auto) Neut # (Auto) Lymph # (Auto) [place] # (Auto) Eos # (Auto) Baso # (Auto) Nucleated RBC % (a uto) Nucleated RBCs # Specimen Type Arterial Sample Site Radial, left ABG pH 7.42 ABG pCO2 42.5 ABG pO2 52.0 L ABG HCO3 27.4 H ABG Base Excess 2.6 H Mehdi Test Pos Hematocrit 28.3 L O2 Delivery Device Room air Continuous Improvement Coach ID Cak Sodium Potassium Chloride Carbon Dioxide Anion Gap BUN Creatinine GFR Calculation Glucose Calculated Osmolal ity Calcium Magnesium Total Bilirubin AST ALT Alkaline Phosphata se Ammonia 84 H Total Protein Albumin Globulin Procalcitonin TSH Free T4 Pending Free T3 Pending 07/27/20 07/27/20 07/27/20 05:14 05:14 05:14 WBC RBC Hgb Hct MCV MCH MCHC RDW Plt Count MPV Neut % (Auto) Lymph % (Auto) [place] % (Auto) Eos % (Auto) Baso % (Auto) Neut # (Auto) Lymph # (Auto) [place] # (Auto) Eos # (Auto) Baso # (Auto) Nucleated RBC % (a uto) Nucleated RBCs # Specimen Type Sample Site ABG pH ABG pCO2 ABG pO2 ABG HCO3 ABG Base Excess Mehdi Test Hematocrit O2 Delivery Device Continuous Improvement Coach ID Sodium 139 Potassium 4.0 Chloride 104 Carbon Dioxide 24 Anion Gap 15.0 BUN 19 Creatinine 0.8 GFR Calculation 75.0 L Glucose 86 Calculated Osmolal ity 290 Calcium 8.6 Magnesium 2.0 Total Bilirubin 1.2 AST 24 ALT 21 Alkaline Phosphata se 251 H Ammonia Total Protein 5.5 L Albumin 2.9 L Globulin 2.6 Procalcitonin 0.34 TSH 9.90 H Free T4 Free T3 07/27/20 05:14 WBC 5.5 RBC 3.92 L Hgb 10.2 L Hct 34.0 L MCV 86.7 D MCH 26.0 L MCHC 30.0 RDW 25.2 H Plt Count 124 L MPV 10.1 Neut % (Auto) 55.7 Lymph % (Auto) 21.2 [place] % (Auto) 16.2 Eos % (Auto) 6.0 Baso % (Auto) 0.5 Neut # (Auto) 3.07 Lymph # (Auto) 1.2 [place] # (Auto) 0.9 Eos # (Auto) 0.3 Baso # (Auto) 0.0 Nucleated RBC % (a uto) 0.9 Nucleated RBCs # 0.1 Specimen Type Sample Site ABG pH ABG pCO2 ABG pO2 ABG HCO3 ABG Base Excess Mehdi Test Hematocrit O2 Delivery Device Continuous Improvement Coach ID Sodium Potassium Chloride Carbon Dioxide Anion Gap BUN Creatinine GFR Calculation Glucose Calculated Osmolal ity Calcium Magnesium Total Bilirubin AST ALT Alkaline Phosphata se Ammonia Total Protein Albumin Globulin Procalcitonin TSH Free T4 Free T3 Vitals: Last Vital Signs Temp 98.4 F 07/27/20 11:39 Pulse 81 07/27/20 11:39 Resp 17 07/27/20 11:39 BP 105/68 07/27/20 11:39 Pulse Ox 90 07/27/20 11:39 Discharge Plan Discharge Patient Disposition: Xfer SNF Condition: Stable Prescriptions: New oxycodone-acetaminophen 5-325 mg Tablet 1 tab PO DAILY PRN (Reason: Pain) Qty: 10 RF: 0 lactulose 20 gram/30 mL Solution 20 g PO Q6H Qty: 2880 RF: 0 metoprolol tartrate 25 mg Tablet 12.5 mg PO BID@0900,2100 Qty: 30 RF: 0 levothyroxine 25 mcg capsule 25 mcg PO DAILY Qty: 30 RF: 0 Continued gabapentin 300 mg capsule 300 mg PO BEDTIME@22 RF: 0 levothyroxine 100 mcg capsule 100 mcg PO DAILY@06 RF: 0 montelukast [Singulair] 10 mg tablet 10 mg PO DAILY@22 RF: 0 spironolactone 25 mg tablet 25 mg PO DAILY@06 RF: 0 albuterol sulfate 90 mcg/actuation HFA aerosol inhaler 2 puff INHALATION Q6H PRN (Reason: Shortness Of Breath) RF: 0 loratadine 10 mg capsule 10 mg PO DAILY@06 RF: 0 zonisamide 100 mg capsule See Rx Instructions .ROUTE .COMPLEX Qty: 540 RF: 1 baclofen 10 mg Tablet 10 mg PO TID PRN (Reason: Muscle Spasm) RF: 0 paroxetine HCl [Paxil] 10 mg tablet 10 mg PO BEDTIME@22 RF: 0 aripiprazole [Abilify] 5 mg tablet 5 mg PO DAILY@22 RF: 0 rosuvastatin [Crestor] 40 mg Tablet 40 mg PO DAILY@22 RF: 0 albuterol sulfate 2.5 mg /3 mL (0.083 %) solution for nebulization 2.5 mg inhalation Q6H PRN (Reason: Shortness Of Breath) RF: 0 nitroglycerin [Nitrostat] 0.4 mg Tablet, Sublingual 0.4 mg SUBLINGUAL Q5M PRN (Reason: Chest Pain) RF: 0 fluticasone propionate 50 mcg/actuation spray,suspension 1 - 2 spray INTRANASAL DAILY PRN (Reason: unknown) RF: 0 pantoprazole 40 mg Tablet,Delayed Release (Dr/Ec) 40 mg PO BID Qty: 60 RF: 0 ferrous sulfate 325 mg (65 mg iron) Tablet,Delayed Release (Dr/Ec) 325 mg PO EVERY OTHER DAY Qty: 60 RF: 0 bupropion HCl 150 mg tablet sustained-release 12 hr 150 mg PO BID@06,22 RF: 0 Discontinued sennosides-docusate sodium [Senexon-S] 8.6-50 mg tablet 1 tab PO DAILY PRN (Reason: Constipation) RF: 0 simvastatin 40 mg tablet 40 mg PO DAILY RF: 0 potassium chloride [Klor-Con M20] 20 mEq tablet,ER particles/crystals 20 meq PO BID RF: 0 oxycodone-acetaminophen 5-325 mg Tablet 1 tab PO Q4H PRN (Reason: Pain) RF: 0 Discharge Orders: Discharge Order (Routine); Ordered 07/27/20 Ordered By: Juan Jose Galindo Referrals: Liza Davila NP [Primary Care Provider] - 1-3 days Bacilio Riddle MD [Physician] - 2 weeks (aortic stenosis) Callum Ho MD [Physician] - 1 week (Pleural collection and pleural enhancement RLL) Emerson Sousa MD [Physician] - 1 week (Aortic stenosis) Discharge Diet: Usual diet Discharge Activity: Increase activity as tolerated Activity Restrictions/Additional Instructions: Please call your doctor or present to emergency department if your condition worsens or you develop diarrhea, lightheadedness, fatigue or see blood in your stool or black stool. Please follow-up with your primary care physician as well as Dr. Riddle's office. Records are being sent to Dr. Sousa to evaluate you for aortic valve surgery/TAVR. Please note that you have blood work pending next Sunday during your evaluation by Liza Davila and at that time decision will be made regarding initiation of Eliquis. Likely at the lower dose 2.5 mg twice daily. Please discuss with your primary care doctor regarding noted finding of possible liver cirrhosis, elevated ammonia level for which you are started on lactulose. Please discuss with your primary care doctor regarding hypothyroidism and adjustment of levothyroxine dose, have them follow-up your thyroid function test. Please discuss with your primary care doctor, as well as with the thoracic surgery regarding small fluid collection and pleural enhancement in the right lower lung. Please discuss with your primary care doctor regarding incidental finding on CT of possible mild ascending colitis. Discuss possibility of colonoscopy in about 6 weeks for additional reassessment. Discharge Attestations Time Spent in Discharge Care*: greater than 30 min Quality Metrics Clinical Quality Measures During this hospital stay, did patient experience: None Coding Level of Care Code Acute Gambling Cashier for Chg Fwd Diagnoses Weakness generalized R53.1 Requires assistance with activities of daily living (ADL) Z74.1 Morbid obesity with BMI of 50.0-59.9, adult E66.01; Z68.43 Anemia D64.9 Upper GI bleed K92.2 Acute kidney injury N17.9 Aortic valve stenosis I35.0 Cardiac valve disease etiology: etiology unspecified Major depressive disorder, recurrent, moderate F33.1 Generalized anxiety disorder F41.1 Dehydration with hyponatremia E86.0; E87.1
[2020-07-27 13:25] LABS: T3 Free 1.6 PG/ML (2.0-4.4)
== END 2020-07-27 15:50 | disposition skilled nursing facility (03) ==
LOC: ER 07:26 → MEDSURG 08:30
PROVIDERS: Internal Medicine; Admitting Provider Hospitalist; Emergency Provider Family Medicine; PCP Nurse Practitioner Family; Visit Provider Internal Medicine
DX: R53.1 Weakness (principal); Z74.1 Need for assistance with personal care; E66.01 Morbid (severe) obesity due to excess calories; Z68.43 Body mass index [BMI] 50.0-59.9, adult; D64.9 Anemia, unspecified; K92.2 Gastrointestinal hemorrhage, unspecified; N17.9 Acute kidney failure, unspecified; I35.0 Nonrheumatic aortic (valve) stenosis; F33.1 Major depressive disorder, recurrent, moderate; F41.1 Generalized anxiety disorder; E86.0 Dehydration; E87.1 Hypo-osmolality and hyponatremia
CPT/HCPCS: 12345; 36415; 36600; 74177; 76705; 80053; 81001; 82140; 82248; 82274; 82550; 82803; 83735; 84100; 84145; 84439; 84443; 84481; 85025; 87040; 87493; 87506; 93005; 96361; 96365; 96366; 96367; 97110; 97116; 97161; 97165; 97530; 97535; 99283; 99285; G0378; J2405; J3475; Q0162; Q9967

== ENCOUNTER 2020-08-16 13:20 | Observation (INO) | payer MEDICARE, MEDICAID, SELFPAY ==
[2020-04-23 13:43] VITALS: BP 124/66; BMI 56.5
[2020-08-16] VITALS (11 sets, daily range): BP systolic 98–179; BP diastolic 65–96; PULSE 96–117; RESP 16–23; TEMP 36.4–36.6; O2SAT 96–100; BMI 53.2
--- NOTE | 2020-08-16 13:38 | CT_ITS ---
WS: [id number] CT HEAD NONCONTRAST HISTORY: AMS TECHNIQUE: Contiguous axial imaging performed through the brain in 2.5 mm imaging. Bone and soft tiss ue windows. Sagittal and coronal reformats reviewed. All CT scans at [facility] use at le ast one of these dose optimization techniques: automated exposure control; mA and/or kV adjustment pe r patient size (includes targeted exams where dose is matched to clinical indication); or iterative r econstruction. DLP: 923.92 mGy.cm COMPARISON: 07/19/2020 No acute intracranial hemorrhage, midline shift or mass effect. Mild atrophy in the cerebellum and cerebrum. Mild chronic microvascular ischemic changes. There are a dditional atherosclerotic calcifications through the intracranial carotid arteries. Ventricles: Normal size with no hydrocephalus. Paranasal sinuses: As visualized are clear. Mastoid air cells: Well pneumatized. Calvarium and scalp: Skull is intact with no soft tissue edema or swelling. CT/CT head wo con* [id number] IMPRESSION: 1. No acute intracranial hemorrhage or edema. Mild atrophy and mild chronic mi crovascular ischemic disease.
--- NOTE | 2020-08-16 13:38 | XRR_ITS ---
PROCEDURE INFORMATION: Exam: XR Chest Exam date and time: 08/16/2020 1:57 PM Age: 54 years old Clinical indication: Cough and dyspnea; Additional info: Dyspnea/cough TECHNIQUE: Imaging protocol: XR of the chest Views: 1 view. COMPARISON: CR XR chest 1V portable [id number] 07/12/2020 6:20 AM FINDINGS: Lungs: There is increasing bilateral lung base consolidation. Pleural spaces: There is a small right pleural effusion. No pneumothorax. Heart/Mediastinum: Cardiomegaly is identified. Bones/joints: Unremarkable. XR/XR chest 1V portable [id number] IMPRESSION: There is increasing bilateral lung base consolidation consistent with atelectasis and/or pneumonia.There is a small right pleural effusion.
[2020-08-16 14:54] LABS: Basophils # 0.1 10^3/uL (0.0-0.1); Basophils % 0.7 %; Eosinophils # 0.1 10^3/uL (0.0-0.8); Eosinophils % 1.5 %; Hematocrit 36.7 % (37.0-47.0); Hemoglobin 11.3 g/dL (11.5-15.3); Lymphocytes # 1.7 10^3/uL (0.8-4.8); Lymphocytes % 19.7 %; Mean Corpuscular HGB Conc 30.8 g/dL (30.0-36.0); Mean Corpuscular Hemoglobin 25.9 pg (28.0-34.0); Mean Corpuscular Volume 84.2 fL (81-99); Mean Platelet Volume 9.8 fL (7.4-10.4); Monocytes # 1.5 10^3/uL (0.2-0.9); Monocytes % 17.3 %; Neutrophils % 60.3 %; Nucleated Red Blood Cells % 0 %; Platelet Count 190 10^3/cmm (130-400); Red Blood Count 4.36 10^6/uL (4.1-5.3); Red Cell Distribution Width 25.5 % (12.1-15.1); White Blood Count 8.8 10^3/uL (4.0-10.0)
--- NOTE | 2020-08-16 15:00 | W.ED.AMS ---
HPI - Altered Mental Status General: Chief Complaint: Altered Mental Status Stated Complaint: confusion Time Seen by Provider: 08/16/20 13:30 History of Present Illness: HPI narrative: 54-year-old female arrives via EMS from home with a complaint of altered mental status. Patient is frequently in the emergency room with weakness inability to care for self and UTIs. [facility] she was discharged home 3 days ago. When I came to see the patient when she first arrived she was not really of much help with history she was not sure where she was what date or time it was or why she was here. There is no family members available. MD complaint: altered mental status, confusion and weakness Onset (ago): unknown Severity: moderate Consistency of symptoms: Constant Treatments prior to arrival: IV fluid Review of Systems General: Reports: ROS unobtainable due to mental status [facility] ED PFSH: Medical History Abnormal angiogram Aortic valve stenosis Severe. Chronic back pain COPD (chronic obstructive pulmonary disease) Generalized anxiety disorder Hyperlipidemia Hypertension Hypothyroidism Major depressive disorder, recurrent, moderate Obstructive pyelonephritis Osteoarthritis Sleep apnea Ureteral calculus, right Surgical History H/O cardiac catheterization H/O cystoscopy H/O lateral meniscus repair of left knee S/P thyroidectomy Family History Father Hypertension Hyperlipidemia Cancer Brother Hypertension CAD (coronary artery disease) Hyperlipidemia Sister Hypertension Cancer Grandfather Hypertension Diabetes Grandmother Hypertension CAD (coronary artery disease) Cancer Diabetes Mother CAD (coronary artery disease) Hypertension Hyperlipidemia Cancer Denies family history of Anesthesia complication Social History Smoking and tobacco status: current every day smoker cigarettes Years cigarettes smoked: 34 Quit status (tobacco): considering quitting Smoking risk assessment/counseling performed?: Yes Alcohol intake: current Alcohol intake frequency: holidays/special occasions only Desire information about alcohol rehabilitation?: No Counseling given: No Marital status: Single Current gender identity: Female Physical Exam Const: COMMON NORMALS: no acute distress GENERAL APPEARANCE: cooperative and comfortable HENMT: COMMON NORMALS: normocephalic, atraumatic and hearing grossly normal bilaterally HEAD & SCALP: normocephalic and atraumatic Eye: COMMON NORMALS: Equal, round and reactive pupils present, EOMs intact bilaterally, conjunctivae normal and no scleral icterus CONJUNCTIVA: Yes conjunctivae normal PUPIL: Yes Equal, round and reactive pupils present Neck/C-Spine: COMMON NORMALS: no JVD Resp: COMMON NORMALS: normal respiratory effort, No retractions and No use of accessory muscles AUSCULTATION: rhonchi and diminished lung sounds Cardio: COMMON NORMALS: no JVD, regular rhythm and No murmurs present (Cardio) RATE: tachycardic RHYTHM: regular rhythm GI: COMMON NORMALS: Soft to palpation and No hepatosplenomegaly present AUSCULTATION: Yes normoactive bowel sounds PALPATION: Yes Soft to palpation, No Tenderness to palpation present (GI), No Guarding due to palpation present (GI) and Yes No hepatosplenomegaly present Extremity: NARRATIVE EXTREMITY EXAM: 3+ chronic edema of the lower extremities bilaterally there is no active induration no skin breakdown or bulla or trigger drainage from the legs. Skin: COMMON NORMALS: no rashes or lesions noted GENERAL SKIN EXAM: no rashes or lesions noted Course Vital Signs: Vital signs: Vital Signs Temperature 97.3 F L 08/17/20 07:24 Pulse Rate 83 08/17/20 07:24 Respiratory Rate 17 08/17/20 07:24 Blood Pressure 106/72 08/17/20 07:24 Pulse Oximetry 91 08/17/20 07:24 MDM - Altered Mental Status MDM Narrative: Medical decision making narrative: Patient has a cystitis also has a pneumonia, she is chronic chest x-ray changes they do seem somewhat advanced. She is encephalopathic as well. She will be admitted discussed Dr. Spivey orders are written. Lab Data: Labs: Lab Results 08/16/20 08/16/20 08/16/20 Range/Units 14:37 14:37 14:37 WBC 8.8 (4.0-10.0) 10^3/ uL RBC 4.36 (4.1-5.3) 10^6/u L Hgb 11.3 L (11.5-15.3) g/dL Hct 36.7 L (37.0-47.0) % MCV 84.2 (81-99) fL MCH 25.9 L (28.0-34.0) pg MCHC 30.8 (30.0-36.0) g/dL RDW 25.5 H (12.1-15.1) % Plt Count 190 (130-400) 10^3/c mm MPV 9.8 (7.4-10.4) fL Neut % (Auto) 60.3 % Lymph % (Auto) 19.7 % [place] % (Auto) 17.3 % Eos % (Auto) 1.5 % Baso % (Auto) 0.7 % Neut # (Auto) 5.30 (1.8-7.7) 10^3/u L Lymph # (Auto) 1.7 (0.8-4.8) 10^3/u L [place] # (Auto) 1.5 H (0.2-0.9) 10^3/u L Eos # (Auto) 0.1 (0.0-0.8) 10^3/u L Baso # (Auto) 0.1 (0.0-0.1) 10^3/u L Nucleated RBC % (a uto) 0 % Nucleated RBCs # 0.0 /100WBC Specimen Type Sample Site ABG pH (7.35-7.45) ABG pCO2 (35-45) mmHg ABG pO2 (80.0-100.0) mmH g ABG HCO3 (22-26) mmol/L ABG O2 Saturation ABG Base Excess (-2.0-2.0) mmol/ L Mehdi Test A-a O2 Gradient (5-10) mmHg Hematocrit (37-47) % Hgb O2 Saturation (95-100) % Carboxyhemoglobin (0.4-20.1) %THgb Methemoglobin (0.4-1.5) % Total Hemoglobin (12-16) g/dL Ionized Calcium (1.1-1.4) mmol/L O2 Delivery Device FiO2 % Manager Deli ID Sodium 138 (136-145) mmol/L Potassium 3.6 (3.5-5.1) mmol/L Chloride 105 (98-107) mmol/L Carbon Dioxide 22 (22-29) mmol/L Anion Gap 14.6 (5-19) BUN 23 H (6-20) mg/dL Creatinine 1.3 H (0.5-0.9) mg/dL GFR Calculation 42.8 L (90-130) mL/min Glucose 88 (65-115) mg/dL Calculated Osmolal ity 289 (285-295) mOsm/k g Lactic Acid 2.2 (0.5-2.2) mmol/L Calcium 9.3 (8.5-10.5) mg/dL Magnesium 1.9 (1.7-2.3) mg/dL Total Bilirubin 1.4 H (0.15-1.2) mg/dL AST 37 H (0-32) U/L ALT 27 (0-33) U/L Alkaline Phosphata se 540 H (35-105) IU/L Creatine Kinase 32 (26-192) U/L Total Protein 7.1 (6.6-8.7) g/dL Albumin 2.9 L (3.5-5.2) g/dL Globulin 4.2 (1.3-4.6) g/dL Lipase 15 (13-60) U/L Procalcitonin (0-0.5) ng/mL Urine Color (Yellow) Urine Appearance (CLEAR) Urine pH (5-7) Ur Specific Gravit y (1.005-1.030) Urine Protein (Negative) Urine Glucose (UA) (Normal) Urine Ketones (Negative) Urine Blood (Negative) Urine Nitrate (Negative) Urine Bilirubin (Negative) Urine Urobilinogen (Negative) mg/dL Ur Leukocyte Yoly ase (Negative) Urine RBC (0-2) /hpf Urine WBC (0-5) /hpf Ur Squamous Epith Cells (0-5) /hpf Amorphous Sediment Urine Bacteria (NONE) /hpf Urine Mucus /hpf SARS-CoV-2 Ag (Rap id) (Negative) 08/16/20 08/16/20 08/16/20 Range/Units 14:37 14:58 15:07 WBC (4.0-10.0) 10^3/ uL RBC (4.1-5.3) 10^6/u L Hgb (11.5-15.3) g/dL Hct (37.0-47.0) % MCV (81-99) fL MCH (28.0-34.0) pg MCHC (30.0-36.0) g/dL RDW (12.1-15.1) % Plt Count (130-400) 10^3/c mm MPV (7.4-10.4) fL Neut % (Auto) % Lymph % (Auto) % [place] % (Auto) % Eos % (Auto) % Baso % (Auto) % Neut # (Auto) (1.8-7.7) 10^3/u L Lymph # (Auto) (0.8-4.8) 10^3/u L [place] # (Auto) (0.2-0.9) 10^3/u L Eos # (Auto) (0.0-0.8) 10^3/u L Baso # (Auto) (0.0-0.1) 10^3/u L Nucleated RBC % (a uto) % Nucleated RBCs # /100WBC Specimen Type Arterial Sample Site Brachial, right ABG pH 7.45 (7.35-7.45) ABG pCO2 31.9 L (35-45) mmHg ABG pO2 78.1 L (80.0-100.0) mmH g ABG HCO3 22.1 (22-26) mmol/L ABG O2 Saturation 97.0 ABG Base Excess -1.3 (-2.0-2.0) mmol/ L Mehdi Test N/a A-a O2 Gradient 4.3 L (5-10) mmHg Hematocrit 33.3 L (37-47) % Hgb O2 Saturation 94.6 L (95-100) % Carboxyhemoglobin 1.7 (0.4-20.1) %THgb Methemoglobin 0.8 (0.4-1.5) % Total Hemoglobin 10.9 L (12-16) g/dL Ionized Calcium 1.3 (1.1-1.4) mmol/L O2 Delivery Device Room air FiO2 21.0 % Manager Deli ID Amh Sodium 140.0 (136-145) mmol/L Potassium 3.3 L (3.5-5.1) mmol/L Chloride (98-107) mmol/L Carbon Dioxide (22-29) mmol/L Anion Gap (5-19) BUN (6-20) mg/dL Creatinine (0.5-0.9) mg/dL GFR Calculation (90-130) mL/min Glucose 97.0 (65-115) mg/dL Calculated Osmolal ity (285-295) mOsm/k g Lactic Acid (0.5-2.2) mmol/L Calcium (8.5-10.5) mg/dL Magnesium (1.7-2.3) mg/dL Total Bilirubin (0.15-1.2) mg/dL AST (0-32) U/L ALT (0-33) U/L Alkaline Phosphata se (35-105) IU/L Creatine Kinase (26-192) U/L Total Protein (6.6-8.7) g/dL Albumin (3.5-5.2) g/dL Globulin (1.3-4.6) g/dL Lipase (13-60) U/L Procalcitonin 0.72 H (0-0.5) ng/mL Urine Color Dark yellow (Yellow) Urine Appearance Cloudy (CLEAR) Urine pH 5 (5-7) Ur Specific Gravit y 1.025 (1.005-1.030) Urine Protein 1+ H (Negative) Urine Glucose (UA) Norm (Normal) Urine Ketones 1+ H (Negative) Urine Blood 3+ H (Negative) Urine Nitrate Negative (Negative) Urine Bilirubin 1+ H (Negative) Urine Urobilinogen 1 H (Negative) mg/dL Ur Leukocyte Yoly ase Trace H (Negative) Urine RBC 25-40 H (0-2) /hpf Urine WBC 10-15 H (0-5) /hpf Ur Squamous Epith Cells 0-4 H (0-5) /hpf Amorphous Sediment Not Reportable Urine Bacteria 1+ H (NONE) /hpf Urine Mucus 1+ /hpf SARS-CoV-2 Ag (Rap id) (Negative) 08/16/20 Range/Units 15:53 WBC (4.0-10.0) 10^3/ uL RBC (4.1-5.3) 10^6/u L Hgb (11.5-15.3) g/dL Hct (37.0-47.0) % MCV (81-99) fL MCH (28.0-34.0) pg MCHC (30.0-36.0) g/dL RDW (12.1-15.1) % Plt Count (130-400) 10^3/c mm MPV (7.4-10.4) fL Neut % (Auto) % Lymph % (Auto) % [place] % (Auto) % Eos % (Auto) % Baso % (Auto) % Neut # (Auto) (1.8-7.7) 10^3/u L Lymph # (Auto) (0.8-4.8) 10^3/u L [place] # (Auto) (0.2-0.9) 10^3/u L Eos # (Auto) (0.0-0.8) 10^3/u L Baso # (Auto) (0.0-0.1) 10^3/u L Nucleated RBC % (a uto) % Nucleated RBCs # /100WBC Specimen Type Sample Site ABG pH (7.35-7.45) ABG pCO2 (35-45) mmHg ABG pO2 (80.0-100.0) mmH g ABG HCO3 (22-26) mmol/L ABG O2 Saturation ABG Base Excess (-2.0-2.0) mmol/ L Mehdi Test A-a O2 Gradient (5-10) mmHg Hematocrit (37-47) % Hgb O2 Saturation (95-100) % Carboxyhemoglobin (0.4-20.1) %THgb Methemoglobin (0.4-1.5) % Total Hemoglobin (12-16) g/dL Ionized Calcium (1.1-1.4) mmol/L O2 Delivery Device FiO2 % Manager Deli ID Sodium (136-145) mmol/L Potassium (3.5-5.1) mmol/L Chloride (98-107) mmol/L Carbon Dioxide (22-29) mmol/L Anion Gap (5-19) BUN (6-20) mg/dL Creatinine (0.5-0.9) mg/dL GFR Calculation (90-130) mL/min Glucose (65-115) mg/dL Calculated Osmolal ity (285-295) mOsm/k g Lactic Acid (0.5-2.2) mmol/L Calcium (8.5-10.5) mg/dL Magnesium (1.7-2.3) mg/dL Total Bilirubin (0.15-1.2) mg/dL AST (0-32) U/L ALT (0-33) U/L Alkaline Phosphata se (35-105) IU/L Creatine Kinase (26-192) U/L Total Protein (6.6-8.7) g/dL Albumin (3.5-5.2) g/dL Globulin (1.3-4.6) g/dL Lipase (13-60) U/L Procalcitonin (0-0.5) ng/mL Urine Color (Yellow) Urine Appearance (CLEAR) Urine pH (5-7) Ur Specific Gravit y (1.005-1.030) Urine Protein (Negative) Urine Glucose (UA) (Normal) Urine Ketones (Negative) Urine Blood (Negative) Urine Nitrate (Negative) Urine Bilirubin (Negative) Urine Urobilinogen (Negative) mg/dL Ur Leukocyte Yoly ase (Negative) Urine RBC (0-2) /hpf Urine WBC (0-5) /hpf Ur Squamous Epith Cells (0-5) /hpf Amorphous Sediment Urine Bacteria (NONE) /hpf Urine Mucus /hpf SARS-CoV-2 Ag (Rap id) Negative (Negative) Discharge Plan Discharge Patient Disposition: Admitted As Inpatient Admit Provider: Mary Cleary Clinical Impression: UTI (urinary tract infection), Aortic valve stenosis, Hypertension, Sleep apnea, Morbid obesity with BMI of 50.0-59.9, adult, Acute metabolic encephalopathy, Pneumonia, Lymphedema Condition: Stable Coding Level of Care Code ED Porcelain Buildup Assistant for Chg Fwd Exam Comprehensive
[2020-08-16 15:11] LABS: Lactic Sepsis W/Reflex 2.2 mmol/L (0.5-2.2)
[2020-08-16 15:14] LABS: Alanine Aminotransferase 27 U/L (0-33); Albumin Level 2.9 g/dL (3.5-5.2); Alkaline Phosphatase 540 IU/L (35-105); Anion Gap 14.6 (5-19); Aspartate Amino Transferase 37 U/L (0-32); Blood Urea Nitrogen 23 mg/dL (6-20); Calcium 9.3 mg/dL (8.5-10.5); Carbon Dioxide 22 mmol/L (22-29); Chloride 105 mmol/L (98-107); Creatine Phosphokinase 32 U/L (26-192); Creatinine Clr Calc Pharmacy 77.9386; Globulin 4.2 g/dL (1.3-4.6); Glomerular Filtration Rate 42.8 mL/min (90-130); Glucose 88 mg/dL (65-115); Lipase 15 U/L (13-60); Magnesium 1.9 mg/dL (1.7-2.3); Osmolality Calculated 289 mOsm/kg (285-295); Potassium 3.6 mmol/L (3.5-5.1); Sodium 138 mmol/L (136-145); Total Bilirubin 1.4 mg/dL (0.15-1.2); Total Protein 7.1 g/dL (6.6-8.7)
[2020-08-16 15:25] LABS: Add Urine Culture? Yes; Add Urine Microscopic? YES; Bacteria Urine 1+ /hpf; Bilirubin Urine 1+ (Negative); Blood Urine 3+ (Negative); Glucose Urine UA Norm (Normal); Ketones Urine 1+ (Negative); Leukocyte Esterase Urine Trace (Negative); Mucus Urine 1+ /hpf; Nitrate Urine Negative (Negative); Protein Urine 1+ (Negative); RBC Urine 25-40 /hpf (0-2); Specific Gravity, Urine 1.025 (1.005-1.030); Squamous Epithelial Cell Urine 0-4 /hpf (0-5); Urine Appearance Cloudy (CLEAR); Urine Color Dark Yellow (Yellow); Urobilinogen Urine 1 mg/dL (Negative); pH Urine 5 (5-7)
[2020-08-16 15:32] LABS: ABG PCO2 31.9 mmHg (35-45); ABG PH Result 7.45 (7.35-7.45); Alveolar-Arterial Oxygen Gradi 4.3 mmHg (5-10); Arterial Blood Gas Hematocrit 33.3 % (37-47); Base Excess ABG -1.3 mmol/L (-2.0-2.0); Blood Gas Operator Identificat AMH; Blood Gas Sample Site Brachial, right; Blood Gas Sample Type Arterial; Carboxyhemoglobin 1.7 %THgb (0.4-20.1); HCO3 ABG 22.1 mmol/L (22-26); HGB O2 Sat 94.6 % (95-100); Ionized Calcium Level - ABG 1.3 mmol/L (1.1-1.4); Methemoglobin 0.8 % (0.4-1.5); Oxygen Device ROOM AIR; PO2 ABG 78.1 mmHg (80.0-100.0); Potassium Level - ABG 3.3 mmol/L (3.5-5.0); Total Hemoglobin 10.9 g/dL (12-16)
[2020-08-16] MEDS: sodium chloride 0.9% 1,000 ML 999 ML IV (15:44)
--- NOTE | 2020-08-16 15:53 | ECG_ITS ---
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: : 1965 Requested By: Thomas Arvizu Order Number: [id number] Reading MD: SERAFIN JUDGE Measurements Intervals [employer] Rate: 109 P: 63 LA: 184 QRS: 52 QRSD: 90 T: 47 QT: 306 QTc: 412 Interpretive Statements SINUS TACHYCARDIA WITH OCCASIONAL ECTOPIC PREMATURE COMPLEXES ABNORMAL RHYTHM ECG Compared to ECG 07/21/2020 04:13:34 Sinus rhythm no longer present Electronically Signed On 08-16-2020 18:27:51 LATHMAKER by SERAFIN JUDGE [id number] f
[2020-08-16 16:23] LABS: SARS Covid-2 Antigen Negative (Negative)
[2020-08-16 16:37] LABS: Reflex Lactate Order REFLEX LACTIC ORDERD
--- NOTE | 2020-08-16 17:01 | CTR_ITS ---
PROCEDURE INFORMATION: Exam: CT Chest Without Contrast; Diagnostic Exam date and time: 08/16/2020 5:38 PM Age: 54 years old Clinical indication: Abnormal findings; Abnormal lab test; Other: Elevated t-bili and alk phos; Abnormal diagnostic tests; Additional info: Elevated t bili and alk phos TECHNIQUE: Imaging protocol: Diagnostic computed tomography of the chest without contrast. Radiation optimization: All CT scans at this facility use at least one of these dose optimization techniques: automated exposure control; mA and/or kV adjustment per patient size (includes targeted exams where dose is matched to clinical indication); or iterative reconstruction. COMPARISON: CT abdomen pelvis w con* [id number] 07/25/2020 1:31 PM RADIATION DOSE METRICS: Total DLP (mGy-cm): 2648.42 FINDINGS: Lungs: There is bilateral interstitial lung disease. There is bilateral lower lobe lung consolidation. No dominant lung mass. Pleural spaces: There is a small right pleural effusion which is partially loculated. No pneumothorax. Heart: Cardiomegaly is identified. Aorta: Unremarkable. No aortic aneurysm. Lymph nodes: Unremarkable. No enlarged lymph nodes. Bones/joints: Degenerative change is identified in the spine. There is no evidence for acute fracture or malalignment. Soft tissues: Unremarkable. IMPRESSION: There is bilateral interstitial lung disease consistent with pulmonary edema and/or infection. There is bilateral lower lobe lung consolidation consistent with atelectasis and/or pneumonia. PROCEDURE INFORMATION: Exam: CT Abdomen And Pelvis Without Contrast Exam date and time: 08/16/2020 5:38 PM Age: 54 years old Clinical indication: Abnormal findings; Abnormal lab test; Other: Elevated t-bili and alk phos; Abnormal diagnostic tests; Additional info: Elevated t bili and alk phos TECHNIQUE: Imaging protocol: Computed tomography of the abdomen and pelvis without contrast. Radiation optimization: All CT scans at this facility use at least one of these dose optimization techniques: automated exposure control; mA and/or kV adjustment per patient size (includes targeted exams where dose is matched to clinical indication); or iterative reconstruction. COMPARISON: CT abdomen pelvis w con* [id number] 07/25/2020 1:31 PM RADIATION DOSE METRICS: Total DLP (mGy-cm): 2648.42 FINDINGS: Liver: Findings are consistent with liver cirrhosis. No liver mass on these noncontrast images. Gallbladder and bile ducts: Gallstones are identified although there are no CT findings to suggest cholecystitis. Pancreas: Normal. No ductal dilation. Spleen: Normal. No splenomegaly. Adrenal glands: Normal. No mass. Kidneys and ureters: There are 0.7 cm calcifications in the right renal pelvis with mild right hydronephrosis. There is calcification in the mid left kidney. Stomach and bowel: Unremarkable. No obstruction. No mucosal thickening. Appendix: No evidence of appendicitis. Intraperitoneal space: There is moderate ascites in the abdomen and pelvis which is not significantly changed. No abscess or free air. Vasculature: Unremarkable. No abdominal aortic aneurysm. Lymph nodes: Unremarkable. No enlarged lymph nodes. Urinary bladder: There is a [place] catheter in a decompressed bladder. Reproductive: Unremarkable as visualized. Bones/joints: Unremarkable. No acute fracture. Soft tissues: There are two 4 cm long metallic foreign bodies in the right lower quadrant which results in streak artifact. CT/CT chest abd pel wo con IMPRESSION: There are 0.7 cm calcifications in the right renal pelvis with mild right hydronephrosis. There is moderate ascites in the abdomen and pelvis. There are metallic foreign bodies in the right lower quadrant which results in streak artifact. Clinical correlation is advised. No biliary duct dilation. Findings are consistent with liver cirrhosis. No liver mass on these noncontrast images. Radiation Dose CTDIVOL = (mGy): DLP = 2648.42~2648.42 (mGy-cm)
[2020-08-16 17:59] LABS: Ammonia 24 umol/L (11-51); Lactic Acid level (Lactate) 1.9 mmol/L (0.5-2.2)
--- NOTE | 2020-08-16 18:44 | P.HP_ITS ---
Providers/Chief Complaint Admitting Physician: Mary Cleary MD Primary Care Provider: Liza Davila NP Chief Complaint: confusion History of Present Illness Maria G Merritt is a 54 year old female multiple recent hospital admissions, for details please see discharge summary dictated by Dr. Galindo on July 27, 2020. Most recently she was admitted here on July 21, 2020 after presenting with generalized weakness and a fall at home. She was assessed by PT and OT and placement was sought at SNF for additional rehabilitation. She has a history of small right pleural effusion persisting since early July without any recent signs of sepsis or active infection. Colitis of ascending colon could not be excluded at the time and she received an empiric course of an tibiotics. Levothyroxine dose was recently adjusted due to elevated TSH of 9.9. Due to concern for possible liver cirrhosis ammonia level was checked and was noted to be elevated at 84 at the time. She was started on lactulose. Ammonia level from today is pending. She returns today after being discharged from SNF 3 days ago after being noted to have confusion at home. She is unable to provide much history right now. Correctly states her name, however is repetitive in her answers. Called EMS. Tells me that her niece checked in on her and was concerned about her wellbeing and sent her over. He is noted to be grunting on exam though denies any current pain or shortness of breath. She is saturating well on room air currently. Diagnostics thus far show normal WBC count at 8.8, hemoglobin stable at 11.3, in fact improved over past admission, platelet count of 190, ABG without any abbie dence of hypoxia or hypercapnia, mild SUSAN with creatinine up to 1.3, this was 0.8 on recent discharge. T bili is at 1.4, AST 37, alkaline phosphatase elevated at 540, baseline around 250 range. Ammonia today is at 24. CK is within range. UA shows trace leukocyte Estrace, nitrate negative, 10-15 WBCs, 1+ urine bacteria. Rapid Covid antigen is negative. Head CT does not show any acute intracranial abnormalities. T of the chest is performed and shows bilateral interstitial lung disease consistent with pulmonary edema and/or infection. Chest x-ray with official read of increasing bilateral lung base consolidation with atelectasis or pneumonia. Abdomen pelvis CT shows mild right hydronephrosis with 0.7 cm calcification in the right renal pelvis, liver cirrhosis noted. On exam patient has significant lower extremity lymphedema. Review of Systems General: Reports: ROS unobtainable due to medical condition and ROS unobtainable due to mental status Medications/Allergies Home Medications Medication Instructions Recorded Confirmed Last Taken Type gabapentin 300 mg capsule 300 mg PO BEDTIME@22 cap 06/17/19 08/16/20 05/17/20 History montelukast 10 mg tablet 10 mg PO DAILY@06/17/19 08/16/20 05/17/20 History baclofen 10 mg PO TID PRN 10/07/19 08/16/20 05/18/20 History bupropion HCl 150 mg PO BID@01/21/20 08/16/20 05/18/20 History albuterol sulfate 90 mcg/actuation 2 puff INHALATION Q6H PRN 02/05/20 08/16/20 05/18/20 History aerosol inhaler loratadine 10 mg capsule 10 mg PO DAILY@02/05/20 08/16/20 05/18/20 History spironolactone 25 mg tablet 25 mg PO DAILY@02/18/20 08/16/20 05/18/20 History aripiprazole [Abilify] 5 mg PO DAILY@05/18/20 08/16/20 05/17/20 History paroxetine HCl [Paxil] 10 mg PO BEDTIME@05/18/20 08/16/20 05/17/20 History rosuvastatin 40 mg PO DAILY@05/18/20 08/16/20 05/17/20 History albuterol sulfate 2.5 mg INHALATION Q6H PRN 07/03/20 08/16/20 Unknown History fluticasone propionate 1 - 2 spray INTRANASAL DAILY PRN 07/03/20 08/16/20 Unknown History nitroglycerin [Nitrostat] 0.4 mg SUBLINGUAL Q5M PRN 07/03/20 08/16/20 Unknown History ferrous sulfate 325 mg PO EVERY OTHER DAY #60 tab 07/20/20 08/16/20 Unknown Rx oxycodone-acetaminophen 1 tab PO DAILY PRN #10 tab 07/23/20 08/16/20 Unknown Rx lactulose 20 g PO Q6H #2880 ml 07/27/20 08/16/20 Unknown Rx metoprolol tartrate 12.5 mg PO BID@0900,2100 #30 tab 07/27/20 08/16/20 Unknown Rx apixaban [Eliquis] 5 mg PO BID@0900,2200 08/16/20 08/16/20 Unknown History levothyroxine 125 mcg PO DAILY@2200 08/16/20 08/16/20 Unknown History losartan 25 mg PO DAILY@0900 08/16/20 08/16/20 Unknown History pantoprazole 40 mg PO BID@0900,1200 08/16/20 08/16/20 Unknown History sennosides-docusate sodium 1 tab PO BEDTIME@2200 PRN 08/16/20 08/16/20 Unknown History [Senexon-S] simvastatin 40 mg PO DAILY@0900 08/16/20 08/16/20 Unknown History zonisamide See Rx Instructions .ROUTE .COMPLEX 08/16/20 08/16/20 Unknown History Allergies Allergy/AdvReac Type Severity Reaction Status Date / Time adhesive tape Allergy Unknown Verified 08/12/20 11:08 influenza virus vaccine qs Allergy Unknown Verified 08/12/20 11:08 [id number] (36 mos, up) [From Single Use EZ Flu] Flu Allergy Unknown Unknown Uncoded 08/12/20 11:08 PFSH Acute PFSH: Medical History Abnormal angiogram Aortic valve stenosis Severe. Chronic back pain COPD (chronic obstructive pulmonary disease) Generalized anxiety disorder Hyperlipidemia Hypertension Hypothyroidism Major depressive disorder, recurrent, moderate Obstructive pyelonephritis Osteoarthritis Sleep apnea Ureteral calculus, right Surgical History H/O cardiac catheterization H/O cystoscopy H/O lateral meniscus repair of left knee S/P thyroidectomy Family History Father Hypertension Hyperlipidemia Cancer Brother Hypertension CAD (coronary artery disease) Hyperlipidemia Sister Hypertension Cancer Grandfather Hypertension Diabetes Grandmother Hypertension CAD (coronary artery disease) Cancer Diabetes Mother CAD (coronary artery disease) Hypertension Hyperlipidemia Cancer Denies family history of Anesthesia complication Social History Smoking and tobacco status: current every day smoker cigarettes Years cigarettes smoked: 34 Quit status (tobacco): considering quitting Smoking risk assessment/counseling performed?: Yes Alcohol intake: current Alcohol intake frequency: holidays/special occasions only Desire information about alcohol rehabilitation?: No Counseling given: No Marital status: Single Current gender identity: Female Vitals/I&O/Wt Last Vital Signs Temp 97.8 F 08/16/20 13:22 Pulse 102 H 08/16/20 18:07 Resp 18 08/16/20 18:07 BP 98/71 08/16/20 18:07 Pulse Ox 98 08/16/20 18:07 08/16/20 08/16/20 08/16/20 06:59 14:59 22:59 Intake Total 1000 / 1000 Balance 1000 / 1000 Weight last 48 hrs Weight 154.221 kg Physical Exam Narrative: EXAM NARRATIVE: General: No acute distress, AO x1 HEENT: PERRLA, pupils bilaterally equal and reactive, pallors not present Chest: Normal vesicular breath sounds, no added sounds, equal good air entry bilaterally CVS: S1-S2 regular, no murmurs, no tachycardia, no gallops, no rubs Abdomen: Soft, nontender, no organomegaly, bowel sounds present Neuro: No focal deficits, no facial deformity, AO x1, power 5/5 in all limbs Extremities: Gross lymphedema B/l LE Urinary Catheter Management^: [place]: Cath Placed During This Visit: yes Reason for Continuing Indwelling Catheter: Accurate Measurement of Urinary Output in Critically Ill Patients Urinary Catheter Date of Insertion: 08/16/20 Urinary Catheter Time of Insertion: 15:09 Data : 08/16/20 14:37 08/16/20 14:37 Micro: Microbiology 08/16/20 14:37 Blood Culture - Preliminary Blood SPECIMEN COLLECTED A&P Assessment and plan (1) Acute metabolic encephalopathy: appears to be metabolic encephalopathy, may be related to UTI No hypoxia Ct chest with b/l infiltrates, howevre persistent rapid covid ag negative check procal afebrile empiric cefepime based on prior urine cx mild R hydronephoris noted, no obstructing stones currenttly await urine cx Status: Acute (2) UTI (urinary tract infection): mepiric cefepime as above Status: Acute Qualifiers: Urinary tract infection type: site unspecified Hematuria presence: without hematuria Qualified Code(s): N39.0 - Urinary tract infection, site not specified (3) Anemia: Status: Acute Qualifiers: Anemia type: unspecified type Qualified Code(s): D64.9 - Anemia, unspecified (4) Lymphedema: chronic Status: Acute Additional A&P Information Copd: continue duoneb, not currently exacerbated Dvt ppx: Lovenox Full code Attestations Medical Necessity Statement*: >2 midnight anticipated for managenet of metabolic necephalopathy, cause udre evalutaion. 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
[2020-08-16] MEDS: sodium chloride 0.9% 1,000 ML 100 ML IV (18:46)
--- NOTE | 2020-08-16 19:43 | PC.RESP ---
Smoking Cessation information sent to patient.
[2020-08-16 19:52] LABS: Procalcitonin 0.72 ng/mL (0-0.5)
[2020-08-16] MEDS: budesonide 0.5 mg/2 mL Neb INHALATION (20:04)
[2020-08-16] MEDS: ipratropium-albuterol 3 mL Neb INHALATION (20:04)
[2020-08-16] MEDS: apixaban 5 mg Tablet PO (21:19)
[2020-08-16] MEDS: ARIPiprazole 10 mg Tablet 5 MG PO (21:19)
[2020-08-16] MEDS: levothyroxine 125 mcg Tablet PO (21:21)
[2020-08-16] MEDS: PARoxetine 20 mg Tablet 10 MG PO (21:21)
[2020-08-16] MEDS: montelukast sodium 10 mg Tablet PO (21:22)
[2020-08-16] MEDS: metoprolol tartrate 25 mg Tablet 12.5 MG PO (21:22)
[2020-08-16] MEDS: cefepime 2,000 MG in sodium chloride 0.9% (plus) 50 ML 100 MG IV (22:15)
[2020-08-17] VITALS (12 sets, daily range): BP systolic 103–137; BP diastolic 55–84; PULSE 70–96; RESP 17–20; TEMP 36.3–36.6; O2SAT 91–99
--- NOTE | 2020-08-17 01:06 | PC.NURSE ---
pt's home medications placed in pyxis
[2020-08-17 05:57] LABS: Basophils % 0.5 %; Eosinophils # 0.1 10^3/uL (0.0-0.8); Eosinophils % 1.4 %; Hemoglobin 9.6 g/dL (11.5-15.3); Lymphocytes % 15.8 %; Mean Corpuscular HGB Conc 29.1 g/dL (30.0-36.0); Mean Corpuscular Hemoglobin 25.6 pg (28.0-34.0); Mean Platelet Volume 10.7 fL (7.4-10.4); Monocytes # 0.8 10^3/uL (0.2-0.9); Monocytes % 12.2 %; Neutrophils # 4.47 10^3/uL (1.8-7.7); Neutrophils % 69.8 %; Nucleated Red Blood Cells % 0 %; Platelet Count 169 10^3/cmm (130-400); Red Blood Count 3.75 10^6/uL (4.1-5.3); Red Cell Distribution Width 26.5 % (12.1-15.1); White Blood Count 6.4 10^3/uL (4.0-10.0)
[2020-08-17 06:14] LABS: Alanine Aminotransferase 20 U/L (0-33); Albumin Level 2.4 g/dL (3.5-5.2); Alkaline Phosphatase 422 IU/L (35-105); Anion Gap 11.5 (5-19); Aspartate Amino Transferase 31 U/L (0-32); Blood Urea Nitrogen 25 mg/dL (6-20); Carbon Dioxide 20 mmol/L (22-29); Chloride 110 mmol/L (98-107); Globulin 3.7 g/dL (1.3-4.6); Glucose 81 mg/dL (65-115); Osmolality Calculated 289 mOsm/kg (285-295); Potassium 3.5 mmol/L (3.5-5.1); Sodium 138 mmol/L (136-145); Total Bilirubin 1.4 mg/dL (0.15-1.2); Total Protein 6.1 g/dL (6.6-8.7)
[2020-08-17 07:24] LABS: Thyroid Stimulating Hormone 3.69 uIU/mL (0.27-4.20)
[2020-08-17] MEDS: atorvastatin 40 mg Tablet 20 MG PO (08:45)
[2020-08-17] MEDS: sodium chloride 0.9% 1,000 ML 100 ML IV ×2 (08:45→17:08)
[2020-08-17] MEDS: metoprolol tartrate 25 mg Tablet 12.5 MG PO ×2 (08:46→21:10)
[2020-08-17] MEDS: apixaban 5 mg Tablet PO ×2 (08:46→21:09)
[2020-08-17] MEDS: pantoprazole DR 40 mg Tablet PO ×2 (08:46→11:33)
[2020-08-17] MEDS: cefepime 2,000 MG in sodium chloride 0.9% (plus) 50 ML 100 MG IV ×2 (08:52→21:03)
[2020-08-17] MEDS: ipratropium-albuterol 3 mL Neb INHALATION ×2 (14:55→20:00)
[2020-08-17] MEDS: budesonide 0.5 mg/2 mL Neb INHALATION ×2 (14:55→20:02)
--- NOTE | 2020-08-17 15:16 | PC.NURSE ---
PATIENT PULLED HER SWEENEY CATHETER OUT, BULB INTACT. DR. GIPSON NOTIFIED. DECISION MADE TO LEAVE SWEENEY CATHETER OUT.
--- NOTE | 2020-08-17 17:02 | US_ITS ---
WS: [id number] ULTRASOUND ABDOMEN LIMITED CLINICAL INFORMATION: elevated t bili and alk phos COMPARISON: None. FINDINGS: Liver Size: Normal. Craniocaudal length: 14.7 cm. Echogenicity: Heterogeneous with coarse echotexture Surface nodularity: Present Mass (size and location): None. Bile ducts Intrahepatic ducts: Normal. Common bile duct diameter: 0.4 cm. Gallbladder Cholelithiasis Gallstones: Present Gallbladder sludge: None. Gallbladder wall thickening: None. Pericholecystic fluid: None. Sonographic Granda sign: Absent. Pancreas Not well seen due to bowel gas Right kidney: Normal. Hydronephrosis: None. Size: 9.4 cm x 6.0 cm x 4.3 cm. Abdominal aorta and IVC Visualized portions are normal. Ascites: Present US/US gall bladder [id number] IMPRESSION: 1. Heterogeneous liver with coarse echotexture with cirrhotic configuration 2. Cholelithiasis with tiny gallstones. No gallbladder wall thickening or diana cholecystic fluid. 3. Normal common bile duct. 4. No hydronephrosis in either kidney. 5. Mild ascites.
--- NOTE | 2020-08-17 18:02 | PC.NURSE ---
SHIFT SUMMARY PATIENT HAS BECOME MORE ALERT THROUGHOUT THE DAY. PATIENT IS ALERT TO SELF AND PLACE AND CAN ANSWER OTHER QUESTIONS APPROPRIATELY ALTHOUGH SHE GETS HUNG UP ON SOME WORDS. PATIENT PULLED OUT HER SWEENEY CATHETER WITH BALLOON INTACT. DR. GIPSON NOTIFIED. CHOICE WAS MADE TO LEAVE CATHETER OUT. PATIENT HAS VOIDED SINCE THEN, BUT IS INCONTINENT. URINE DARK IN COLOR. PATIENT HAD BOWEL MOVEMENT TODAY. GOOD APPETITE. NO COMPLAINTS AT THIS TIME.
--- NOTE | 2020-08-17 18:05 | PM.PN ---
Subjective Subjective: Interval history: no new complaints today, mentation somehwat improved, oriented x 3, though still slow to respond, afebrile, hemodynamically stable , ambulated short distance in the room with PT assistance, cr improving Medications: Reviewed: Yes Vitals/I&O/Wt Last Vital Signs Temp 97.8 F 08/18/20 05:14 Pulse 96 08/18/20 05:14 Resp 18 08/18/20 05:14 BP 136/82 08/18/20 05:14 Pulse Ox 96 08/18/20 05:14 08/17/20 08/17/20 08/18/20 14:59 22:59 06:59 Intake Total 466.667 / 654.705 9643.333 / 1475.000 800 / 2275.000 Output Total Balance 466.667 / 322.680 5564.333 / 1474.000 800 / 2274.000 Weight last 48 hrs Weight 154.221 kg Physical Exam Narrative: EXAM NARRATIVE: General: No acute distress, AO x3 HEENT: PERRLA, pupils bilaterally equal and reactive, pallors not present Chest: Normal vesicular breath sounds, no added sounds, equal good air entry bilaterally CVS: S1-S2 regular, no murmurs, no tachycardia, no gallops, no rubs Abdomen: Soft, nontender, no organomegaly, bowel sounds present Neuro: No focal deficits, no facial deformity, AO x1, power 5/5 in all limbs Extremities: Gross lymphedema B/l LE Urinary Catheter Management^: [place]: Cath Placed During This Visit: yes, but has since been removed by the nurse Reason for Continuing Indwelling Catheter: Other Urinary Catheter Date of Insertion: 08/16/20 Urinary Catheter Time of Insertion: 15:09 Date Urinary Catheter Removed: 08/17/20 Time Urinary Catheter Discontinued: 15:16 Data : 08/17/20 05:17 08/17/20 05:17 Micro: Microbiology 08/16/20 16:49 Blood Culture - Preliminary Blood NEGATIVE TO DATE 08/16/20 14:37 Blood Culture - Preliminary Blood NEGATIVE TO DATE A&P Assessment and plan (1) Acute metabolic encephalopathy: appears to be metabolic encephalopathy, may be related to UTI No hypoxia Ct chest with b/l infiltrates, however persistent rapid covid ag negative procal 0.7 afebrile empiric cefepime based on prior urine cx Check MRSA PCR mild R hydronephoris noted, no obstructing stones currenttly , SUSAN improving await urine cx Status: Acute (2) UTI (urinary tract infection): mepiric cefepime as above Status: Acute (3) Anemia: Status: Acute Qualifiers: Anemia type: unspecified type Qualified Code(s): D64.9 - Anemia, unspecified (4) Lymphedema: chronic Status: Acute Additional A&P Information Copd: continue duoneb, not currently exacerbated Dvt ppx: Lovenox Full code PT eval Attestations Medical Necessity Statement*: ongoing need for iv abx, pending urine cx Coding Level of Care Code Acute Facilities Flight Check Pilot for [facility] Fwd Diagnoses Acute metabolic encephalopathy G93.41 UTI (urinary tract infection) N39.0 Anemia D64.9 Anemia type: unspecified type Lymphedema I89.0
[2020-08-17] MEDS: PARoxetine 20 mg Tablet 10 MG PO (21:09)
[2020-08-17] MEDS: levothyroxine 125 mcg Tablet PO (21:10)
[2020-08-17] MEDS: montelukast sodium 10 mg Tablet PO (21:10)
[2020-08-17] MEDS: ARIPiprazole 10 mg Tablet 5 MG PO (21:10)
[2020-08-18] VITALS (15 sets, daily range): BP systolic 88–136; BP diastolic 47–82; PULSE 75–98; RESP 16–19; TEMP 36.6–37.1; O2SAT 95–100
[2020-08-18] MEDS: sodium chloride 0.9% 1,000 ML 100 ML IV (03:24)
[2020-08-18] MEDS: ipratropium-albuterol 3 mL Neb INHALATION ×4 (03:33→21:32)
[2020-08-18] MEDS: cefepime 2,000 MG in sodium chloride 0.9% (plus) 50 ML 100 MG IV ×2 (08:40→19:56)
[2020-08-18] MEDS: metoprolol tartrate 25 mg Tablet 12.5 MG PO ×2 (08:41→21:29)
[2020-08-18] MEDS: budesonide 0.5 mg/2 mL Neb INHALATION ×2 (08:42→21:33)
[2020-08-18] MEDS: pantoprazole DR 40 mg Tablet PO ×2 (08:42→11:51)
[2020-08-18] MEDS: apixaban 5 mg Tablet PO ×2 (08:43→21:30)
[2020-08-18] MEDS: atorvastatin 40 mg Tablet 20 MG PO (08:43)
--- NOTE | 2020-08-18 17:28 | PM.PN ---
Subjective Subjective: Interval history: , Mental status appears to be mildly improving. Afebrile, hemodynamically stable, urine culture shows few, strep and yeast. Had 1 normal bowel movement today Medications: Reviewed: Yes Vitals/I&O/Wt Last Vital Signs Temp 97.8 F 08/18/20 15:40 Pulse 80 08/18/20 15:40 Resp 18 08/18/20 15:40 BP 133/74 08/18/20 15:40 Pulse Ox 95 08/18/20 15:40 08/18/20 08/18/20 08/18/20 06:59 14:59 22:59 Intake Total 800 / 2275.000 1050 / 1050 Balance 800 / 2274.000 1050 / 1050 Physical Exam Narrative: EXAM NARRATIVE: General: AO x3 HEENT: PERRLA, pupils bilaterally equal and reactive, pallors not present Chest: Normal vesicular breath sounds, no added sounds, equal good air entry bilaterally CVS: S1-S2 regular, no murmurs, no tachycardia, no gallops, no rubs Abdomen: Soft, nontender, no organomegaly, bowel sounds present Extremities: Gross lymphedema B/l LE Urinary Catheter Management^: [place]: Cath Placed During This Visit: yes, but has since been removed by the nurse Reason for Continuing Indwelling Catheter: Other Urinary Catheter Date of Insertion: 08/16/20 Urinary Catheter Time of Insertion: 15:09 Date Urinary Catheter Removed: 08/17/20 Time Urinary Catheter Discontinued: 15:16 Data : 08/17/20 05:17 08/17/20 05:17 Micro: Microbiology 08/16/20 14:58 Urine Culture - Preliminary Urine,Clean Catch 08/16/20 16:49 Blood Culture - Preliminary Blood NEGATIVE TO DATE 08/16/20 14:37 Blood Culture - Preliminary Blood NEGATIVE TO DATE A&P Assessment and plan (1) Acute metabolic encephalopathy: appears to be metabolic encephalopathy, likely related to UTI Ct chest with b/l infiltrates, however persistent, less likely to be acute pneumonia, no gross respiratory symptoms Urine culture today with gamma strep, appropriately covered currently, also noted yeast, start fluconazole. CT abdomen mild R hydronephoris noted, no obstructing stones currenttly , SUSAN improving Status: Acute (2) UTI (urinary tract infection): empiric cefepime day 3 today, as above Status: Acute (3) Anemia: Status: Acute Qualifiers: Anemia type: unspecified type Qualified Code(s): D64.9 - Anemia, unspecified (4) Lymphedema: chronic no current signs of cellulitis Status: Acute Additional A&P Information Copd: continue duoneb, not currently exacerbated Dvt ppx: Lovenox Full code PT eval appreciated, discharge recommendations long-term, awaiting prior Auth for SNF placement. Attestations Medical Necessity Statement*: Awaiting prior Auth for SNF placement, need to complete antibiotic treatment Coding Level of Care Code Acute Breakdown Man for [facility] Fwd Diagnoses Acute metabolic encephalopathy G93.41 UTI (urinary tract infection) N39.0 Anemia D64.9 Anemia type: unspecified type Lymphedema I89.0
[2020-08-18] MEDS: montelukast sodium 10 mg Tablet PO (21:30)
[2020-08-18] MEDS: PARoxetine 20 mg Tablet 10 MG PO (21:30)
[2020-08-18] MEDS: levothyroxine 125 mcg Tablet PO (21:30)
[2020-08-18] MEDS: ARIPiprazole 10 mg Tablet 5 MG PO (21:31)
[2020-08-19] VITALS (14 sets, daily range): BP systolic 100–120; BP diastolic 57–71; PULSE 75–88; RESP 17–22; TEMP 36.4–37.2; O2SAT 91–98
[2020-08-19] MEDS: ipratropium-albuterol 3 mL Neb INHALATION ×4 (03:05→20:01)
--- NOTE | 2020-08-19 08:52 | DCPLANNER ---
Pg 2 of IM updated and reviewed with pt. No questions, copy provided.
[2020-08-19] MEDS: cefepime 2,000 MG in sodium chloride 0.9% (plus) 50 ML 100 MG IV (08:54)
[2020-08-19] MEDS: atorvastatin 40 mg Tablet 20 MG PO (08:55)
[2020-08-19] MEDS: fluconazole 100 mg Tablet 200 MG PO (08:55)
[2020-08-19] MEDS: apixaban 5 mg Tablet PO ×2 (09:06→21:56)
[2020-08-19] MEDS: pantoprazole DR 40 mg Tablet PO ×2 (09:06→13:35)
[2020-08-19] MEDS: metoprolol tartrate 25 mg Tablet 12.5 MG PO ×2 (09:06→21:56)
[2020-08-19] MEDS: budesonide 0.5 mg/2 mL Neb INHALATION ×2 (09:25→20:01)
--- NOTE | 2020-08-19 09:25 | PC.RESP ---
Therapist had emergency on [facility].
--- NOTE | 2020-08-19 11:21 | PM.PN ---
Subjective Subjective: Interval history: Mental status significantly improved today, urine culture updated to reflect Enterococcus species instead of Streptococcus today. Patient feels well, her complaint at this time is right upper quadrant. MRSA PCR returned negative. Medications: Reviewed: Yes Vitals/I&O/Wt Last Vital Signs Temp 98.8 F 08/19/20 07:34 Pulse 88 08/19/20 09:33 Resp 18 08/19/20 09:26 BP 104/70 08/19/20 07:34 Pulse Ox 95 08/19/20 09:26 08/18/20 08/19/20 08/19/20 22:59 06:59 14:59 Intake Total 530 / 1580 240 / 240 Balance 530 / 1580 240 / 240 Physical Exam Narrative: EXAM NARRATIVE: GEN: Awake, alert and oriented, no acute distress CVS: S1S2 N RS: CTA B/L Abd: Soft, nt/nd , bs+ SPA ASSOCIATE: no focal neuro deficits Urinary Catheter Management^: [place]: Cath Placed During This Visit: yes, but has since been removed by the nurse Reason for Continuing Indwelling Catheter: Other Urinary Catheter Date of Insertion: 08/16/20 Urinary Catheter Time of Insertion: 15:09 Date Urinary Catheter Removed: 08/17/20 Time Urinary Catheter Discontinued: 15:16 Data : 08/17/20 05:17 08/17/20 05:17 Micro: Microbiology 08/16/20 14:58 Urine Culture - Preliminary Urine,Clean Catch Enterococcus species Yeast 08/18/20 08:35 MRSA Culture - Final Nose A&P Assessment and plan (1) Acute metabolic encephalopathy: Initially appeared to be metabolic encephalopathy, likely related to UTI , however now mental status is significantly improved. Urine culture updated to reflect Enterococcus species instead of Streptococcus, cefepime does not have any coverage for Enterococcus, and given that patient has improved without organism directed therapy leads me to believe that this Enterococcus is more likely to represent colonization rather than a true infection at this time. Discontinue antibiotics and monitor closely Possible that patient's mental status improved as a result of holding multiple medications including baclofen, bupropion, gabapentin and loratadine. Percocet being resumed today due to complaint of skin pain and improve mental status. Ct chest with b/l infiltrates, however persistent, less likely to be acute pneumonia, no gross respiratory symptoms P.o. fluconazole to continue for intertrigo CT abdomen mild R hydronephoris noted, no obstructing stones currenttly , SUSAN improving Status: Acute (2) UTI (urinary tract infection): Discontinue cefepime today as above Status: Acute (3) Anemia: Status: Acute Qualifiers: Anemia type: unspecified type Qualified Code(s): D64.9 - Anemia, unspecified (4) Lymphedema: chronic no current signs of cellulitis Status: Acute Additional A&P Information Copd: continue duoneb, not currently exacerbated Overall physical deconditioning, needs senior living facility placement, awaiting prior Auth from insurance Dvt ppx: Lovenox Full code PT eval appreciated, discharge recommendations assisted, awaiting prior Auth for SNF placement. 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
[2020-08-19] MEDS: acetaminophen 325 mg Tablet 650 MG PO (13:45)
[2020-08-19] MEDS: lactulose oral liq 20 gm/30 mL UDC PO (13:45)
[2020-08-19] MEDS: ondansetron 2 mg/ML SDV 2 mL 4 MG IVP (13:45)
--- NOTE | 2020-08-19 17:06 | PC.OT ---
OT note: Attempted OT session, pt refused due to stomach pain. Will attempt later as able.
[2020-08-19] MEDS: PARoxetine 20 mg Tablet 10 MG PO (21:55)
[2020-08-19] MEDS: levothyroxine 125 mcg Tablet PO (21:56)
[2020-08-19] MEDS: ARIPiprazole 10 mg Tablet 5 MG PO (21:56)
[2020-08-19] MEDS: montelukast sodium 10 mg Tablet PO (21:56)
--- NOTE | 2020-08-19 22:29 | PC.NURSE ---
Verification of Allergies: Upon entering room to complete shift assessment this nurse noticed a latex precautions sign on door frame. During shift assessment patient was able to answer A&O questions, when asked about allergies patient stated her only allergies are adhesive tape and the Flu vaccine. This nurse asked if she knew of any other allergies other than those two. She replied with Not that I am aware of. This nurse told her about the sign out side of her door, then asked if anytime she had a catheter or had a blood draw if she had noticed any rashes, itching or other signs of an allergic reaction to which she stated No. This nurse has looked through her chart and has found no mention of her having an allergy to latex. This nurse removed the sign from the door.
[2020-08-20] VITALS (9 sets, daily range): BP systolic 101–121; BP diastolic 54–73; PULSE 75–82; RESP 16–20; TEMP 36.7; O2SAT 91–96
[2020-08-20] MEDS: acetaminophen 325 mg Tablet 650 MG PO (01:46)
[2020-08-20] MEDS: oxyCODONE-APAP 5-325 mg Tablet 1 TAB PO (02:55)
[2020-08-20] MEDS: ipratropium-albuterol 3 mL Neb INHALATION ×2 (02:58→08:57)
[2020-08-20] MEDS: atorvastatin 40 mg Tablet 20 MG PO (08:55)
[2020-08-20] MEDS: metoprolol tartrate 25 mg Tablet 12.5 MG PO (08:55)
[2020-08-20] MEDS: pantoprazole DR 40 mg Tablet PO ×2 (08:55→13:40)
[2020-08-20] MEDS: fluconazole 100 mg Tablet 200 MG PO (08:55)
[2020-08-20] MEDS: apixaban 5 mg Tablet PO (08:55)
[2020-08-20] MEDS: budesonide 0.5 mg/2 mL Neb INHALATION (08:57)
--- NOTE | 2020-08-20 09:53 | PM.DCS ---
Discharge Providers Date of Admission: 08/16/20 17:15 Date of Discharge: August 20, 2020 Attending Provider at Admission: Mary Cleary MD Attending Provider at Discharge: Mary Cleary MD Primary Care Provider: Liza Davila NP Diagnoses at Discharge Discharge Diagnosis (1) Acute metabolic encephalopathy: Status: Acute (2) UTI (urinary tract infection): Status: Acute (3) Anemia: Status: Acute Qualifiers: Anemia type: unspecified type Qualified Code(s): D64.9 - Anemia, unspecified (4) Lymphedema: Status: Acute Reason for Visit Reason for Visit: confusion Hospital Course Hospital Course Maria G Merritt is a 54 year old female multiple recent hospital admissions, for details please see discharge summary dictated by Dr. Galindo on July 27, 2020. She presented here most recently on August 16, 2020 with altered mental status after having been recently discharged from half-way. She was somnolent upon initial presentation, noted to be grunting, complained of generalized pain and weakness. Diagnostics were with normal leukocytosis during the course of admission, stable hemoglobin at 11.3, improved over past admissions, ABG without any evidence of hypoxia or hypercapnia, mild SUSAN with creatinine up to 1.3, corrected to 1.1 at the time of discharge. Alkaline phosphatase elevated at 540, baseline in the 250 range, CT of the abdomen did not show any abnormalities of the hepatobiliary system. Mild right hydronephrosis was noted, however no obstructing stones were seen. Ammonia was normal at 24. UA showed trace leuk esterase, nitrate negative, 10-15 WBCs and 1+ urine bacteria, rapid Covid antigen was negative. Patient remained afebrile during the course of admission. Chest x-ray with official read of increasing bilateral lung base consolidation with atelectasis, however. Grossly unchanged per my interpretation over previous admission. Could have residual changes/radiological lag from pneumonia over the past admission. Her lower extremity significant lymphedema is overall unchanged, no signs of cellulitis or skin breakdown was noted. Initial impression upon admission was that of acute metabolic encephalopathy secondary to a UTI and she was treated empirically with cefepime for 4 days. Urine culture initially showed, strep species along with yeast, latter likely related to intertrigo and vulvovaginal candidiasis. Urine culture eventually on 08/19 was corrected to reflect Enterococcus species instead of Streptococcus species. Several of her home medications which could contribute to her somnolent state were also held. Her mental status improved significantly between day of admission to day of discharge. Given that patient improved without specific organism directed therapy towards Enterococcus, it is likely that Enterococcus is more likely to represent colonization rather than a true infection at this time. Patient did have a [place] catheter in place when she came in. This has subsequently been removed. Cefepime was discontinued yesterday and patient has remained stable off of antibiotics. It is likely that patient's mental status improved as a result of holding multiple medications including baclofen, bupropion, gabapentin and loratadine. Percocet was eventually resumed due to complaints of pain and improvement in mental status. Losartan and spironolactone were additionally held during the course of admission due to SUSAN. Patient's blood pressure is maintained between systolic of 100-1 20 off of these medications and therefore they are not being resumed at discharge. This may be reassessed at SNF. She is being discharged today with mentation and overall health at her recent baseline. Physical Exam Narrative: EXAM NARRATIVE: GEN: Awake, alert and oriented, no acute distress CVS: S1S2 N RS: CTA B/L Abd: Soft, nt/nd , bs+ [employer] MANAGER: no focal neuro deficits Extremities significant lower extremity edema related to lymphedema, no cellulitis or skin breakdown Urinary Catheter Management^: [place]: Cath Placed During This Visit: yes, but has since been removed by the nurse Reason for Continuing Indwelling Catheter: Other Urinary Catheter Date of Insertion: 08/16/20 Urinary Catheter Time of Insertion: 15:09 Date Urinary Catheter Removed: 08/17/20 Time Urinary Catheter Discontinued: 15:16 Discharge Data Data Completed and Pending: Completed Studies During Hospitalization Category Date Time Status CT chest abd pel wo con Stat Cat Scan 08/16/20 17:[address] head wo con* 7 [id number] Stat Cat Scan 08/16/20 13:38 Completed XR chest 1V vaishali ble [id number] Stat Exams 08/16/20 13:38 Completed US gall bladder 7 [id number] Stat Ultrasound 08/17/20 17:02 Completed Pending at discharge Category Date Time Status Blood Culture Sta t Lab 08/16/20 16:49 Results Urine Culture Sta t Lab 08/16/20 14:58 Results Vitals: Last Vital Signs Temp 98.0 F 08/20/20 08:00 Pulse 81 08/20/20 09:09 Resp 20 H 08/20/20 09:00 BP 121/69 08/20/20 08:00 Pulse Ox 96 08/20/20 09:00 Discharge Plan Discharge Patient Disposition: Xfer [facility] Condition: Stable Prescriptions: Continued montelukast [Singulair] 10 mg tablet 10 mg PO DAILY@22 RF: 0 albuterol sulfate 90 mcg/actuation HFA aerosol inhaler 2 puff INHALATION Q6H PRN (Reason: Shortness Of Breath) RF: 0 paroxetine HCl [Paxil] 10 mg tablet 10 mg PO BEDTIME@22 RF: 0 aripiprazole [Abilify] 5 mg tablet 5 mg PO DAILY@22 RF: 0 rosuvastatin 40 mg Tablet 40 mg PO DAILY@22 RF: 0 albuterol sulfate 2.5 mg /3 mL (0.083 %) solution for nebulization 2.5 mg inhalation Q6H PRN (Reason: Shortness Of Breath) RF: 0 nitroglycerin [Nitrostat] 0.4 mg Tablet, Sublingual 0.4 mg SUBLINGUAL Q5M PRN (Reason: Chest Pain) RF: 0 fluticasone propionate 50 mcg/actuation spray,suspension 1 - 2 spray INTRANASAL DAILY PRN (Reason: unknown) RF: 0 ferrous sulfate 325 mg (65 mg iron) Tablet,Delayed Release (Dr/Ec) 325 mg PO EVERY OTHER DAY Qty: 60 RF: 0 lactulose 20 gram/30 mL Solution 20 g PO Q6H Qty: 2880 RF: 0 metoprolol tartrate 25 mg Tablet 12.5 mg PO BID@0900,2100 Qty: 30 RF: 0 Senexon-S 8.6-50 mg tablet 1 tab PO BEDTIME@2200 PRN (Reason: Constipation) RF: 0 levothyroxine 125 mcg tablet 125 mcg PO DAILY@0 RF: 0 Eliquis 5 mg tablet 5 mg PO BID@0900,2200 RF: 0 zonisamide 100 mg capsule 100 mg PO BEDTIME RF: 0 pantoprazole 40 mg tablet,delayed release (DR/EC) 40 mg PO DAILY RF: 0 simvastatin 40 mg tablet 40 mg PO DAILY@0900 RF: 0 Changed oxycodone-acetaminophen 5-325 mg Tablet 1 tab PO BIDWMEAL PRN (Reason: Pain) Qty: 10 RF: 0 Discontinued gabapentin 300 mg capsule 300 mg PO BEDTIME@22 RF: 0 spironolactone 25 mg tablet 25 mg PO DAILY@06 RF: 0 loratadine 10 mg capsule 10 mg PO DAILY@06 RF: 0 baclofen 10 mg Tablet 10 mg PO TID PRN (Reason: Muscle Spasm) RF: 0 bupropion HCl 150 mg tablet sustained-release 12 hr 150 mg PO BID@06,22 RF: 0 losartan 25 mg tablet 25 mg PO DAILY@0900 RF: 0 Discharge Orders: Discharge Order (Routine); Ordered 08/20/20 Ordered By: Mary Cleary Discharge Diet: Usual diet and Cardiac Discharge Activity: Resume usual activity Discharge Attestations Time Spent in Discharge Care*: greater than 30 min Quality Metrics Clinical Quality Measures During this hospital stay, did patient experience: None
== END 2020-08-20 14:30 | disposition skilled nursing facility (03) ==
LOC: ER 17:41 → MEDSURG 08-17 08:19
PROVIDERS: Admitting Provider Student in an Organized Health Care Education/Training Program; Emergency Provider Family Medicine; PCP Nurse Practitioner Family; Visit Provider Student in an Organized Health Care Education/Training Program
DX: G93.41 Metabolic encephalopathy (principal); N39.0 Urinary tract infection, site not specified; D64.9 Anemia, unspecified; I89.0 Lymphedema, not elsewhere classified; J44.9 Chronic obstructive pulmonary disease, unspecified; E78.5 Hyperlipidemia, unspecified; M19.90 Unspecified osteoarthritis, unspecified site; G47.30 Sleep apnea, unspecified; F17.210 Nicotine dependence, cigarettes, uncomplicated
CPT/HCPCS: 36415; 36600; 51702; 70450; 71045; 71250; 74176; 76705; 80051; 80053; 81001; 82140; 82330; 82550; 82805; 83605; 83690; 83735; 84145; 84443; 85025; 87040; 87077; 87086; 87106; 87186; 87426; 87641; 93005; 94640; 97110; 97161; 97166; 97530; 97535; G0378; J0692; J2405; J7030; J7626

== ENCOUNTER 2020-09-10 17:02 | Outpatient (CLI) | payer MEDICARE, MEDICAID, SELFPAY ==
[2020-04-23 13:43] VITALS: BP 124/66; BMI 56.5
[2020-09-10 20:05] LABS: Add Urine Microscopic? YES; Bilirubin Urine 1+ (Negative); Blood Urine 3+ (Negative); Glucose Urine UA Norm (Normal); Ketones Urine 1+ (Negative); Leukocyte Esterase Urine Trace (Negative); Nitrate Urine Negative (Negative); Protein Urine 3+ (Negative); Urine Appearance Bloody (CLEAR); Urine Color Red (Yellow); Urobilinogen Urine 1 mg/dL (Negative); pH Urine 5 (5-7)
[2020-09-10 20:06] LABS: Bacteria Urine 1+ /hpf; RBC Urine TOO NUMEROUS TO CNT /hpf (0-2); Squamous Epithelial Cell Urine 0-4 /hpf (0-5)
== END 2020-09-10 17:03 | disposition home or self-care (01) ==
PROVIDERS: PCP Nurse Practitioner Family; Visit Provider Internal Medicine
DX: N39.0 Urinary tract infection, site not specified (principal)
CPT/HCPCS: 81001; 87086

== ENCOUNTER 2020-09-11 10:32 | Emergency (ER) | payer MEDICARE, MEDICAID, SELFPAY ==
[2020-04-23 13:43] VITALS: BP 124/66; BMI 56.5
[2020-09-11 10:36] VITALS: BP 146/62; PULSE 78; RESP 19; TEMP 36.9; O2SAT 98; BMI 55.7
--- NOTE | 2020-09-11 11:21 | XRR_ITS ---
PROCEDURE INFORMATION: Exam: XR Abdomen Exam date and time: 09/11/2020 11:25 AM Age: 54 years old Clinical indication: Abdominal pain; Flank; Right; Additional info: Hematuria, RT renal stone TECHNIQUE: Imaging protocol: XR of the abdomen. Views: Frontal supine view of the abdomen. 1 View. COMPARISON: CR XR KUB [id number] 02/28/2019 7:32 AM FINDINGS: Gastrointestinal tract: Normal. Multiple nonspecific dilated small bowel loops seen. Repeat examination with flat and upright views is recommended if clinical syndrome is persistent. Bones/joints: Unremarkable. XR/XR KUB [id number] IMPRESSION: No acute GI abnormality.
--- NOTE | 2020-09-11 11:21 | USR_ITS ---
PROCEDURE INFORMATION: Exam: US Retroperitoneal; Complete; Kidneys and Bladder Exam date and time: 09/11/2020 11:58 AM Age: 54 years old Clinical indication: Other: Hematuria; Additional info: RT flank pain, ? hydronephrosis TECHNIQUE: Imaging protocol: Real-time ultrasound of the retroperitoneum with image documentation. Complete exam focused on the kidneys and bladder. COMPARISON: US abdomen limited [id number] 01/11/2016 7:39 AM FINDINGS: Right kidney: Normal. No stones. No hydronephrosis. 10.4 cm x 5.2 cm x 5.8 cm Left kidney: Is not visible Urinary bladder: There is a linear echogenic vascular density within the urinary bladder. This finding may represent a polyp or bladder mass. Urologic surgery non emergent consultation recommended to clarify this finding. The abdominal aorta is unremarkable AP measurement 2.1 cm. US/US renal BI* [id number] IMPRESSION: 1. Unremarkable right kidney. 2. The left kidney is not visible. 3. Urinary bladder mass or polyp need urology consult.
[2020-09-11 11:32] LABS: Basophils # 0.1 10^3/uL (0.0-0.1); Basophils % 0.8 %; Eosinophils # 0.2 10^3/uL (0.0-0.8); Eosinophils % 3.2 %; Hematocrit 31.5 % (37.0-47.0); Hemoglobin 10.2 g/dL (11.5-15.3); Lymphocytes # 1.4 10^3/uL (0.8-4.8); Mean Corpuscular HGB Conc 32.4 g/dL (30.0-36.0); Mean Corpuscular Hemoglobin 27.1 pg (28.0-34.0); Mean Corpuscular Volume 83.6 fL (81-99); Mean Platelet Volume 10.8 fL (7.4-10.4); Monocytes # 1.3 10^3/uL (0.2-0.9); Monocytes % 20.2 %; Neutrophils # 3.52 10^3/uL (1.8-7.7); Neutrophils % 54.5 %; Nucleated Red Blood Cells % 0 %; Platelet Count 258 10^3/cmm (130-400); Red Blood Count 3.77 10^6/uL (4.1-5.3); Red Cell Distribution Width 24.5 % (12.1-15.1); White Blood Count 6.5 10^3/uL (4.0-10.0)
[2020-09-11 11:42] LABS: Add Urine Culture? Yes; Bacteria Urine 2+ /hpf; Bilirubin Urine 1+ (Negative); Blood Urine 3+ (Negative); Glucose Urine UA Norm (Normal); Ketones Urine 1+ (Negative); Leukocyte Esterase Urine Negative (Negative); Nitrate Urine Negative (Negative); Protein Urine 3+ (Negative); RBC Urine TOO NUMEROUS TO CNT /hpf (0-2); Specific Gravity, Urine 1.025 (1.005-1.030); Squamous Epithelial Cell Urine 0-4 /hpf (0-5); Urine Appearance Bloody (CLEAR); Urine Color Red (Yellow); Urobilinogen Urine 1 mg/dL (Negative); WBC Urine 0-4 /hpf (0-5); pH Urine 5 (5-7)
--- NOTE | 2020-09-11 11:44 | ED_ITS ---
HPI - Female Genitourinary General: Chief complaint: Urogenital-Female Stated complaint: ABD PAIN; BLOOD IN URINE Time Seen by Provider: 09/11/20 11:01 Source: patient and EMS Mode of arrival: EMS Limitations: no limitations History of Present Illness: HPI Narrative: 54-year-old female patient presents to the emergency department with hematuria and lower abdominal pain per group home staff. Patient reports had fever today upon arrival, fever upon arrival to the ED was 98.5. CT scan of the abdomen pelvis completed 08/16/2020, revealed 0.7 cm calcifications within the right renal pelvis and mild right hydronephrosis. She reports nausea, has not vomited and did eat well this morning. She denies pain with urination, she reports chronic constipation but bowel movements have been normal. She resides at [facility]. MD elicited complaint: flank pain Pertinent past history: other (Kidney stones) Onset (ago): day(s) (Upon awakening this morning) Severity: mild Female Urogenital Radiation: R Flank Consistency: intermittent Vaginal discharge: none Urinary symptoms: Hematuria Associated symptoms: Reports abdominal pain, nausea and weakness (Chronic); Deny headache(s) Sexual activity: No Review of Systems General: Reports: 10 or more systems reviewed and unremarkable except in HPI and below Const: Reports: fatigue (Chronic) and malaise (Chronic); Denies: fever(s), chills, body aches or diaphoresis Eyes: Denies: blurry vision or eye redness ENMT: Denies: throat pain, dental pain or disequilibrium Card: Denies: chest pain, palpitations or irregular heart rhythm Resp: Denies: dyspnea, productive cough, non-productive cough or wheezing GI: Reports: abdominal pain and nausea; Denies: vomiting, hematemesis, heartburn, diarrhea, constipation, GI cramping or pain on defecation : Denies: difficulty voiding or dysuria Musc: Reports: muscle weakness (Chronic); Denies: back pain Skin/Breast: Denies: rash or pruritus Neuro: Denies: headache(s), weakness in extremities or behavioral changes Psych: Denies: anxiety, depression or change in appetite Elvis/Lymph: Denies: easy bruising PFS ED PFSH: Medical History Abnormal angiogram Aortic valve stenosis Severe. Chronic back pain COPD (chronic obstructive pulmonary disease) Generalized anxiety disorder Hyperlipidemia Hypertension Hypothyroidism Major depressive disorder, recurrent, moderate Obstructive pyelonephritis Osteoarthritis Sleep apnea Ureteral calculus, right Surgical History H/O cardiac catheterization H/O cystoscopy H/O lateral meniscus repair of left knee S/P thyroidectomy Family History Father Hypertension Hyperlipidemia Cancer Brother Hypertension CAD (coronary artery disease) Hyperlipidemia Sister Hypertension Cancer Grandfather Hypertension Diabetes Grandmother Hypertension CAD (coronary artery disease) Cancer Diabetes Mother CAD (coronary artery disease) Hypertension Hyperlipidemia Cancer Denies family history of Anesthesia complication Social History Smoking and tobacco status: current every day smoker cigarettes Years cigarettes smoked: 34 Quit status (tobacco): considering quitting Smoking risk assessment/counseling performed?: Yes Alcohol intake: current Alcohol intake frequency: holidays/special occasions only Desire information about alcohol rehabilitation?: No Counseling given: No Marital status: Single Current gender identity: Female Physical Exam Const: COMMON NORMALS: no acute distress, patient oriented x3 and alert GENERAL APPEARANCE: cooperative, well kempt, frail appearing and well hydrated; not ill appearing NUTRITIONAL APPEARANCE: overweight ORIENTATION/CONSCIOUSNESS: Yes awake, Yes oriented to person, Yes oriented to place and Yes oriented to time HENMT: COMMON NORMALS: normocephalic, atraumatic, Normal external nose present and moist oral mucous membranes HEAD & SCALP: normal to inspection, normocephalic and atraumatic NOSE: Normal external nose present Eye: COMMON NORMALS: Equal, round and reactive pupils present and EOMs intact bilaterally GENERAL EYE: appearance normal, both eyes and all related structures PUPIL: Yes Equal, round and reactive pupils present Neck/C-Spine: COMMON NORMALS: full ROM and no lymphadenopathy GENERAL: Yes normal visual inspection and Yes trachea midline CERVICAL SPINE: Yes cervical ROM normal Lymph: LYMPHATIC: no lymphadenopathy noted Chest: COMMONS NORMALS: normal inspection of the chest and normal palpation of entire chest wall Resp: COMMON NORMALS: normal respiratory effort, No retractions, No use of accessory muscles and clear to auscultation bilaterally EFFORT & INSPECTION: Yes able to speak in complete sentences, No labored and No audible wheezes AUSCULTATION: clear to auscultation bilaterally Cardio: COMMON NORMALS: regular rate, regular rhythm, S1 normal heart sound present, S2 normal heart sound present and Peripheral pulses 2+ throughout RATE: regular rate RHYTHM: regular rhythm HEART SOUNDS: S1 normal heart sound present and S2 normal heart sound present PERIPHERAL PULSES: Peripheral pulses 2+ throughout GI: COMMON NORMALS: Normal to inspection, nondistended, normoactive bowel sounds present, Soft to palpation and non-tender INSPECTION: Yes normal to inspection, No Abdominal wall edema, No abdominal distension and Yes central obesity PALPATION: Yes Soft to palpation, No Pulsatile mass present and No Abdominal wall crepitus present : BLADDER/KIDNEY EXAM: Yes CVA tenderness on the right Back/Pelvis: COMMON NORMALS: thoracic and lumbar spine normal to inspection Extremity: COMMON NORMALS: normal to inspection and capillary refill normal Neuro: COMMON NORMALS: patient oriented x3 and no focal motor deficits SENSORIUM/ORIENTATION: Yes alert, Yes oriented to person, Yes oriented to place and Yes oriented to time Psych: COMMON NORMALS: mental status grossly normal, Normal thought process present and cooperative APPEARANCE: Yes well kempt ACTIVITY/MOTOR BEHAVIOR: Yes appropriate eye contact THOUGHT PROCESS: Normal thought process present Skin: COMMON NORMALS: no rashes or lesions noted and turgor normal GENERAL SKIN EXAM: no rashes or lesions noted and turgor normal Course Vital Signs: Vital signs: Vital Signs Temperature 98.5 F 09/11/20 10:36 Pulse Rate 87 09/11/20 13:42 Respiratory Rate 18 09/11/20 13:42 Blood Pressure 116/77 09/11/20 13:42 Pulse Oximetry 98 09/11/20 13:42 MDM - Female MDM Narrative: Medical decision making narrative: 54-year-old female patient presents to the emergency room from [facility]. She was sent to the emergency room this morning for evaluation due to andrea hematuria. She denied vomiting, reports mild nausea; was able to eat breakfast this morning prior to her arrival. She has not exhibited fever; CT scan from 08/16/2020 with IV contrast revealed moderate ascites in the abdomen pelvis, 0.7 cm calcification in the right renal pelvis and mild right hydronephrosis. Renal ultrasound completed today with new findings of bladder mass/polyp; no hydronephrosis noted to either kidney. Urinalysis revealed 2+ bacteria; large amount of red blood cells, white blood cells, urine with cath UA. Lactic acid 1.7, white blood count without leukocytosis, she is chronically anemic with hemoglobin stable 10.2. She was able to drink water and was hungry during her stay in the ED, she did not complain of nausea, she was not provided with antiemetic. Vital signs were stable. She was placed on antibiotic, Omnicef with urology referral through social services counselor to Dr. Ling due to new finding of abnormality on ultrasound. Previous renal stone appreciated on CT scan abdomen and pelvis completed 08/16/2020 was not appreciated on today's exam. Cannot rule out passage of stone; she was placed on Flomax x14 days, Percocet was increased to 3 times daily as needed for pain. She did not complain of abdominal pain here in the ED, she did reveal mild right flank tenderness but had resolved during her stay. Lab Data: Labs: Lab Results 09/11/20 09/11/20 09/11/20 Range/Units 11:24 11:24 11:24 WBC 6.5 (4.0-10.0) 10^3/ uL RBC 3.77 L (4.1-5.3) 10^6/u L Hgb 10.2 L (11.5-15.3) g/dL Hct 31.5 L (37.0-47.0) % MCV 83.6 (81-99) fL MCH 27.1 L (28.0-34.0) pg MCHC 32.4 (30.0-36.0) g/dL RDW 24.5 H (12.1-15.1) % Plt Count 258 (130-400) 10^3/c mm MPV 10.8 H (7.4-10.4) fL Neut % (Auto) 54.5 % Lymph % (Auto) 21.0 % [place] % (Auto) 20.2 % Eos % (Auto) 3.2 % Baso % (Auto) 0.8 % Neut # (Auto) 3.52 (1.8-7.7) 10^3/u L Lymph # (Auto) 1.4 (0.8-4.8) 10^3/u L [place] # (Auto) 1.3 H (0.2-0.9) 10^3/u L Eos # (Auto) 0.2 (0.0-0.8) 10^3/u L Baso # (Auto) 0.1 (0.0-0.1) 10^3/u L Nucleated RBC % (a uto) 0 % Nucleated RBCs # 0.0 /100WBC Sodium 138 (136-145) mmol/L Potassium 3.5 (3.5-5.1) mmol/L Chloride 107 (98-107) mmol/L Carbon Dioxide 23 (22-29) mmol/L Anion Gap 11.5 (5-19) BUN 28 H (6-20) mg/dL Creatinine 0.9 (0.5-0.9) mg/dL GFR Calculation 65.5 L (90-130) mL/min Glucose 101 (65-115) mg/dL Calculated Osmolal ity 292 (285-295) mOsm/k g Lactate (0.5-2.2) mmol/L Calcium 8.9 (8.5-10.5) mg/dL Total Bilirubin 0.7 (0.15-1.2) mg/dL AST 58 H (0-32) U/L ALT 22 (0-33) U/L Alkaline Phosphata se 517 H (35-105) IU/L Total Protein 6.1 L (6.6-8.7) g/dL Albumin 2.5 L (3.5-5.2) g/dL Globulin 3.6 (1.3-4.6) g/dL Lipase 21 (13-60) U/L Urine Color Red (Yellow) Urine Appearance Bloody A (CLEAR) Urine pH 5 (5-7) Ur Specific Gravit y 1.025 (1.005-1.030) Urine Protein 3+ H (Negative) Urine Glucose (UA) Norm (Normal) Urine Ketones 1+ H (Negative) Urine Blood 3+ H (Negative) Urine Nitrate Negative (Negative) Urine Bilirubin 1+ H (Negative) Urine Urobilinogen 1 H (Negative) mg/dL Ur Leukocyte Yoly ase Negative (Negative) Urine RBC Too numerous to c nt H (0-2) /hpf Urine WBC 0-4 H (0-5) /hpf Ur Squamous Epith Cells 0-4 H (0-5) /hpf Amorphous Sediment Not Reportable Urine Bacteria 2+ H (NONE) /hpf 09/11/20 Range/Units 11:54 WBC (4.0-10.0) 10^3/ uL RBC (4.1-5.3) 10^6/u L Hgb (11.5-15.3) g/dL Hct (37.0-47.0) % MCV (81-99) fL MCH (28.0-34.0) pg MCHC (30.0-36.0) g/dL RDW (12.1-15.1) % Plt Count (130-400) 10^3/c mm MPV (7.4-10.4) fL Neut % (Auto) % Lymph % (Auto) % [place] % (Auto) % Eos % (Auto) % Baso % (Auto) % Neut # (Auto) (1.8-7.7) 10^3/u L Lymph # (Auto) (0.8-4.8) 10^3/u L [place] # (Auto) (0.2-0.9) 10^3/u L Eos # (Auto) (0.0-0.8) 10^3/u L Baso # (Auto) (0.0-0.1) 10^3/u L Nucleated RBC % (a uto) % Nucleated RBCs # /100WBC Sodium (136-145) mmol/L Potassium (3.5-5.1) mmol/L Chloride (98-107) mmol/L Carbon Dioxide (22-29) mmol/L Anion Gap (5-19) BUN (6-20) mg/dL Creatinine (0.5-0.9) mg/dL GFR Calculation (90-130) mL/min Glucose (65-115) mg/dL Calculated Osmolal ity (285-295) mOsm/k g Lactate 1.7 (0.5-2.2) mmol/L Calcium (8.5-10.5) mg/dL Total Bilirubin (0.15-1.2) mg/dL AST (0-32) U/L ALT (0-33) U/L Alkaline Phosphata se (35-105) IU/L Total Protein (6.6-8.7) g/dL Albumin (3.5-5.2) g/dL Globulin (1.3-4.6) g/dL Lipase (13-60) U/L Urine Color (Yellow) Urine Appearance (CLEAR) Urine pH (5-7) Ur Specific Gravit y (1.005-1.030) Urine Protein (Negative) Urine Glucose (UA) (Normal) Urine Ketones (Negative) Urine Blood (Negative) Urine Nitrate (Negative) Urine Bilirubin (Negative) Urine Urobilinogen (Negative) mg/dL Ur Leukocyte Yoly ase (Negative) Urine RBC (0-2) /hpf Urine WBC (0-5) /hpf Ur Squamous Epith Cells (0-5) /hpf Amorphous Sediment Urine Bacteria (NONE) /hpf Imaging Data: CXR: Radiologist's impression: [facility] [address] [place] [id number] XRay Report Signed Patient: Maria G Merritt #: [id number] : 1965Acct#:[id number] Age/Sex: 54 / FADM Date: 09/11/20 Loc: ERRoom/Bed: Attending Dr: Ordering Provider/Ordering MD: Fidelina Yost Date of Service: 09/11/20 Procedure(s): XR KUB [id number] Accession Number(s): [id number] Report Number: [id number] PROCEDURE INFORMATION: Exam: XR Abdomen Exam date and time: 09/11/2020 11:25 AM Age: 54 years old Clinical indication: Abdominal pain; Flank; Right; Additional info: Hematuria, RT renal stone TECHNIQUE: Imaging protocol: XR of the abdomen. Views: Frontal supine view of the abdomen. 1 View. COMPARISON: CR XR KUB [id number] 02/28/2019 7:32 AM FINDINGS: Gastrointestinal tract: Normal. Multiple nonspecific dilated small bowel loops seen. Repeat examination with flat and upright views is recommended if clinical syndrome is persistent. Bones/joints: Unremarkable. XR/XR KUB [id number] IMPRESSION: No acute GI abnormality. Dictated By:Kartik Garcia Signed By:Jossie Garcia Date/Time:09/11/20 1301 DD/ 1300 Other Imaging: Radiologist's impression: [facility] [address] [place] [id number] Ultrasound Report Signed Patient: Maria G Merritt #: [id number] : 1965 Age/Sex: 54 / F ADM Date: 09/11/20 Loc: ER Room/Bed: Attending Dr: Ordering Provider/Ordering MD: Fidelina Yost Date of Service: 09/11/20 Procedure(s): US renal BI* [id number] Accession Number(s): [id number] Report Number: [id number] PROCEDURE INFORMATION: Exam: US Retroperitoneal; Complete; Kidneys and Bladder Exam date and time: 09/11/2020 11:58 AM Age: 54 years old Clinical indication: Other: Hematuria; Additional info: RT flank pain, ? hydronephrosis TECHNIQUE: Imaging protocol: Real-time ultrasound of the retroperitoneum with image documentation. Complete exam focused on the kidneys and bladder. COMPARISON: US abdomen limited [id number] 01/11/2016 7:39 AM FINDINGS: Right kidney: Normal. No stones. No hydronephrosis. 10.4 cm x 5.2 cm x 5.8 cm Left kidney: Is not visible Urinary bladder: There is a linear echogenic vascular density within the urinary bladder. This finding may represent a polyp or bladder mass. Urologic surgery non emergent consultation recommended to clarify this finding. The abdominal aorta is unremarkable AP measurement 2.1 cm. US/US renal BI* [id number] IMPRESSION: 1. Unremarkable right kidney. 2. The left kidney is not visible. 3. Urinary bladder mass or polyp need urology consult. Dictated By: Kartik Garcia Signed By: Kartik Garcia Signed Date/Time: 09/11/20 1259 DD/ 1258 Discharge Plan Discharge Patient Disposition: Home Clinical Impression: Bladder mass, Calculus, renal Hematuria Qualifiers: Hematuria type: gross Qualified Code(s): R31.0 - Gross hematuria UTI (urinary tract infection) Qualifiers: Urinary tract infection type: acute cystitis Hematuria presence: with hematuria Qualified Code(s): N30.01 - Acute cystitis with hematuria Condition: Stable Prescriptions: New cefdinir 300 mg capsule 300 mg PO BID 10 Days Qty: 20 RF: 0 Flomax 0.4 mg capsule 0.4 mg PO DAILY Qty: 14 RF: 0 Zofran 4 mg tablet 4 mg PO Q4H 5 Days Qty: 14 RF: 0 No Action montelukast [Singulair] 10 mg tablet 10 mg PO DAILY@22 RF: 0 albuterol sulfate 90 mcg/actuation HFA aerosol inhaler 2 puff INHALATION Q6H PRN (Reason: Shortness Of Breath) RF: 0 paroxetine HCl [Paxil] 10 mg tablet 10 mg PO BEDTIME@22 RF: 0 aripiprazole [Abilify] 5 mg tablet 5 mg PO DAILY@22 RF: 0 rosuvastatin 40 mg Tablet 40 mg PO DAILY@22 RF: 0 albuterol sulfate 2.5 mg /3 mL (0.083 %) solution for nebulization 2.5 mg inhalation Q6H PRN (Reason: Shortness Of Breath) RF: 0 nitroglycerin [Nitrostat] 0.4 mg Tablet, Sublingual 0.4 mg SUBLINGUAL Q5M PRN (Reason: Chest Pain) RF: 0 fluticasone propionate 50 mcg/actuation spray,suspension 1 - 2 spray INTRANASAL DAILY PRN (Reason: unknown) RF: 0 ferrous sulfate 325 mg (65 mg iron) Tablet,Delayed Release (Dr/Ec) 325 mg PO EVERY OTHER DAY Qty: 60 RF: 0 lactulose 20 gram/30 mL Solution 20 g PO Q6H Qty: 2880 RF: 0 metoprolol tartrate 25 mg Tablet 12.5 mg PO BID@0900,2100 Qty: 30 RF: 0 Senexon-S 8.6-50 mg tablet 1 tab PO BEDTIME@2200 PRN (Reason: Constipation) RF: 0 levothyroxine 125 mcg tablet 125 mcg PO DAILY@2200 RF: 0 Eliquis 5 mg tablet 5 mg PO BID@0900,2200 RF: 0 zonisamide 100 mg capsule 100 mg PO BEDTIME RF: 0 pantoprazole 40 mg tablet,delayed release (DR/EC) 40 mg PO DAILY RF: 0 simvastatin 40 mg tablet 40 mg PO DAILY@0900 RF: 0 oxycodone-acetaminophen 5-325 mg Tablet 1 tab PO BIDWMEAL PRN (Reason: Pain) Qty: 10 RF: 0 Discharge Orders: Discharge ED (Routine); Ordered 09/11/20 Ordered By: Fidelina Yost Referrals: Giovanni,Liza, [employer]ER [Primary Care Provider] - Discharge Diet: Usual diet Discharge Activity: Limit activity as instructed Patient Instructions: Kidney Stones (ED), Urinary Tract Infection in Women (ED), Renal Colic (ED), Opioid Safety Activity Restrictions/Additional Instructions: Increase Percocet to 1 tablet p.o. 3 times daily as needed for pain Return to the emergency department if patient develops nausea vomiting inability to tolerate p.o. fluids or other concerning symptoms office services clerk will be contacting you with an appointment with Dr. Ling, abnormal findings on ultrasound revealed possible bladder mass Complete antibiotics until all gone, even if feeling better Prescription of Zofran has been provided to take as needed for nausea. Coding Level of Care Code ED Mine Laborer for Sueg Fwd Exam Comprehensive
[2020-09-11 11:58] VITALS: BP 163/58; PULSE 75; RESP 18; O2SAT 98
[2020-09-11 12:00] LABS: Alanine Aminotransferase 22 U/L (0-33); Albumin Level 2.5 g/dL (3.5-5.2); Alkaline Phosphatase 517 IU/L (35-105); Anion Gap 11.5 (5-19); Aspartate Amino Transferase 58 U/L (0-32); Blood Urea Nitrogen 28 mg/dL (6-20); Calcium 8.9 mg/dL (8.5-10.5); Carbon Dioxide 23 mmol/L (22-29); Chloride 107 mmol/L (98-107); Globulin 3.6 g/dL (1.3-4.6); Glomerular Filtration Rate 65.5 mL/min (90-130); Glucose 101 mg/dL (65-115); Lipase 21 U/L (13-60); Osmolality Calculated 292 mOsm/kg (285-295); Potassium 3.5 mmol/L (3.5-5.1); Sodium 138 mmol/L (136-145); Total Bilirubin 0.7 mg/dL (0.15-1.2); Total Protein 6.1 g/dL (6.6-8.7)
[2020-09-11 12:22] LABS: Lactate (Lactic Acid level) 1.7 mmol/L (0.5-2.2)
[2020-09-11] MEDS: cefTRIAXone 1,000 MG in sodium chloride 0.9% (plus) 50 ML 100 MG IV (13:15)
[2020-09-11 13:42] VITALS: BP 116/77; PULSE 87; RESP 18; O2SAT 98
--- NOTE | 2020-09-13 12:43 | DCPLANNER ---
business analyst project manager had message to schedule a follow up appointment for patient with Dr. Ling. business analyst project manager called the office of Dr. Ling, spoke with Lauren, gave clinic patients information. business analyst project manager was told that patients information would be printed and reviewed. Clinic will call patient with appointment information.
--- NOTE | 2020-09-15 14:13 | DCPLANNER ---
Patient has a follow up appointment scheduled for Monday, September 21, 2020 at 10:[address] Ling. Clinic will call patient with appointment information.
--- NOTE | 2020-09-22 15:03 | DCPLANNER ---
Patient has a follow up appointment scheduled for 09.21.[address] Ling - patient did attend appointment.
== END 2020-09-11 15:32 | disposition home or self-care (01) ==
PROVIDERS: Emergency Medicine; Emergency Provider Nurse Practitioner Family; PCP Nurse Practitioner Family
DX: N30.01 Acute cystitis with hematuria (principal); Z79.01 Long term (current) use of anticoagulants; J44.9 Chronic obstructive pulmonary disease, unspecified; E78.5 Hyperlipidemia, unspecified; I10 Essential (primary) hypertension; F17.210 Nicotine dependence, cigarettes, uncomplicated
CPT/HCPCS: 74018; 76770; 80053; 81001; 83605; 83690; 85025; 87086; 87106; 96365; 99284; J0696

== ENCOUNTER 2020-09-21 09:27 | Outpatient (CLI) | payer MEDICARE, MEDICAID, SELFPAY ==
[2020-04-23 13:43] VITALS: BP 124/66; BMI 56.5
--- NOTE | 2020-09-21 09:30 | XRR_ITS ---
PROCEDURE INFORMATION: Exam: XR Abdomen Exam date and time: 09/21/2020 9:44 AM Age: 54 years old Clinical indication: Condition or disease; Kidney or ureter condition; Calculus (stone) in kidney; Additional info: N20.0 - calculus of kidney TECHNIQUE: Imaging protocol: XR of the abdomen. Views: Frontal supine view of the abdomen. 1 View. COMPARISON: CR (ABDOMEN, ) 09/11/2020 11:31 AM FINDINGS: Nondiagnostic examination, requiring repeat imaging. XR/XR KUB [id number] IMPRESSION: Nondiagnostic examination, requiring repeat imaging.
== END 2020-09-21 09:28 | disposition home or self-care (01) ==
LOC: RAD 09:32
PROVIDERS: PCP Nurse Practitioner Family; Visit Provider Urology
DX: N20.0 Calculus of kidney (principal)
CPT/HCPCS: 74018

== ENCOUNTER 2020-09-24 13:47 | Outpatient (CLI) | payer MEDICARE, MEDICAID, SELFPAY ==
[2020-04-23 13:43] VITALS: BP 124/66; BMI 56.5
[2020-09-24 15:58] LABS: Potassium 2.2 mmol/L (3.5-5.1)
== END 2020-09-24 13:48 | disposition home or self-care (01) ==
LOC: LAB 13:50
PROVIDERS: PCP Nurse Practitioner Family; Visit Provider Nurse Practitioner Family
DX: E87.6 Hypokalemia (principal)
CPT/HCPCS: 84132

== ENCOUNTER 2020-09-24 17:08 | Emergency (ER) | payer MEDICARE, MEDICAID, SELFPAY ==
[2020-04-23 13:43] VITALS: BP 124/66; BMI 56.5
[2020-09-24 17:14] VITALS: BP 92/48; PULSE 89; RESP 18; O2SAT 93; BMI 57.2
--- NOTE | 2020-09-24 17:21 | ED_ITS ---
Documented by User: Thomas Carter DO 09/25/20 07:35 HPI - General Adult General: Chief complaint: Recheck/Abnormal Lab/Rx Stated complaint: LOW POTASSIUM Time Seen by Provider: 09/24/20 17:09 History of Present Illness: HPI narrative: 54-year-old female brought here from the intermediate with hypokalemia she denies any other symptoms no chest pain no abdominal pain. She is chronic venous stasis edema of her legs with massive lymphedema. Her only reason to be sent here today was for her hypokalemia on the lab test that was done at the intermediate. She denies any other problems. She has chronic leg swelling which she states is unchanged Onset (ago): hour(s) Associated symptoms: Deny chest pain, confusion, cough, diaphoresis, decreased appetite, dyspnea, fevers/chills, headache(s), malaise, nausea, rash, palpitations, seizures, short of breath, syncope, vomiting or weakness Treatments prior to arrival: none Review of Systems Const: Denies: malaise or diaphoresis Card: Denies: chest pain, palpitations or syncope Resp: Denies: dyspnea GI: Denies: nausea or vomiting : Denies: flank pain, difficulty voiding, dysuria, urinary frequency or urinary urgency Skin/Breast: Denies: rash Neuro: Denies: headache(s) or confusion PFSH ED PFSH: Medical History Abnormal angiogram Aortic valve stenosis Severe. Chronic back pain COPD (chronic obstructive pulmonary disease) Generalized anxiety disorder Gross hematuria Hyperlipidemia Hypertension Hypothyroidism Major depressive disorder, recurrent, moderate Obstructive pyelonephritis Osteoarthritis Sleep apnea Ureteral calculus, right Surgical History H/O cardiac catheterization H/O cystoscopy H/O lateral meniscus repair of left knee S/P thyroidectomy Family History Father Hypertension Hyperlipidemia Cancer Brother Hypertension CAD (coronary artery disease) Hyperlipidemia Sister Hypertension Cancer Grandfather Hypertension Diabetes Grandmother Hypertension CAD (coronary artery disease) Cancer Diabetes Mother CAD (coronary artery disease) Hypertension Hyperlipidemia Cancer Denies family history of Anesthesia complication Social History (Reviewed 04/17/21 @ 07:34 by JAZLYN Castrejon Smoking and tobacco status: current every day smoker cigarettes Years cigarettes smoked: 34 Quit status (tobacco): considering quitting Smoking risk assessment/counseling performed?: Yes Alcohol intake: current Alcohol intake frequency: holidays/special occasions only Desire information about alcohol rehabilitation?: No Counseling given: No Marital status: Single Current gender identity: Female Physical Exam Const: COMMON NORMALS: no acute distress GENERAL APPEARANCE: cooperative and comfortable ORIENTATION/CONSCIOUSNESS: Yes awake, Yes oriented to person, Yes oriented to place and Yes oriented to time HENMT: COMMON NORMALS: normocephalic, atraumatic and hearing grossly normal bilaterally HEAD & SCALP: normocephalic and atraumatic Neck/C-Spine: COMMON NORMALS: no JVD Resp: COMMON NORMALS: normal respiratory effort, No retractions, No use of accessory muscles and clear to auscultation bilaterally AUSCULTATION: clear to auscultation bilaterally Cardio: COMMON NORMALS: no JVD, regular rate, regular rhythm and No murmurs present (Cardio) RATE: regular rate RHYTHM: regular rhythm Neuro: SENSORIUM/ORIENTATION: Yes oriented to person, Yes oriented to place and Yes oriented to time Course Vital Signs: Vital signs: Vital Signs Pulse Rate 78 09/24/20 21:37 Respiratory Rate 18 09/24/20 17:14 Blood Pressure 114/60 09/24/20 21:37 Pulse Oximetry 95 09/24/20 21:37 MDM - General Adult MDM Narrative: Medical decision making narrative: Waiting labs and EKG I initially seen the patient at the end of my shift. Care turned over to Dr. Douglas see Dr. Douglas's note for final diagnosis and disposition Lab Data: Labs: Lab Results 09/24/20 09/24/20 Range/Units 18:35 18:35 WBC 6.7 (4.0-10.0) 10^3/ uL RBC 3.38 L (4.1-5.3) 10^6/u L Hgb 9.1 L (11.5-15.3) g/dL Hct 27.9 L (37.0-47.0) % MCV 82.5 (81-99) fL MCH 26.9 L (28.0-34.0) pg MCHC 32.6 (30.0-36.0) g/dL RDW 23.3 H (12.1-15.1) % Plt Count 165 (130-400) 10^3/c mm MPV 11.2 H (7.4-10.4) fL Neut % (Auto) 54.4 % Lymph % (Auto) 23.9 % Lamar % (Auto) 20.2 % Eos % (Auto) 1.0 % Baso % (Auto) 0.4 % Neut # (Auto) 3.65 (1.8-7.7) 10^3/u L Lymph # (Auto) 1.6 (0.8-4.8) 10^3/u L Lamar # (Auto) 1.4 H (0.2-0.9) 10^3/u L Eos # (Auto) 0.1 (0.0-0.8) 10^3/u L Baso # (Auto) 0.0 (0.0-0.1) 10^3/u L Nucleated RBC % (a uto) 0 % Nucleated RBCs # 0.0 /100WBC Sodium 137 (136-145) mmol/L Potassium 2.7 L* D (3.5-5.1) mmol/L Chloride 96 L (98-107) mmol/L Carbon Dioxide 29 (22-29) mmol/L Anion Gap 14.7 (5-19) BUN 26 H (6-20) mg/dL Creatinine 1.2 H (0.5-0.9) mg/dL GFR Calculation 47.0 L (90-130) mL/min Glucose 99 (65-115) mg/dL Calculated Osmolal ity 289 (285-295) mOsm/k g Calcium 8.1 L (8.5-10.5) mg/dL Discharge Plan Discharge Patient Disposition: Home Clinical Impression: Hypokalemia Condition: Stable Prescriptions: New potassium chloride 20 mEq packet 40 meq PO BID 7 Days Qty: 30 RF: 0 No Action montelukast [Singulair] 10 mg tablet 10 mg PO DAILY@0800 RF: 0 paroxetine HCl [Paxil] 10 mg tablet 10 mg PO BEDTIME@22 RF: 0 aripiprazole [Abilify] 5 mg tablet 5 mg PO DAILY@20 RF: 0 rosuvastatin 40 mg Tablet 40 mg PO DAILY@22 RF: 0 albuterol sulfate 2.5 mg /3 mL (0.083 %) solution for nebulization 2.5 mg inhalation Q6H PRN (Reason: Shortness Of Breath) RF: 0 nitroglycerin [Nitrostat] 0.4 mg Tablet, Sublingual 0.4 mg SUBLINGUAL Q5M PRN (Reason: Chest Pain) RF: 0 fluticasone propionate 50 mcg/actuation spray,suspension 1 - 2 spray INTRANASAL DAILY PRN (Reason: unknown) RF: 0 lactulose 20 gram/30 mL Solution 20 g PO Q6H Qty: 2880 RF: 0 sennosides-docusate sodium [Senexon-S] 8.6-50 mg tablet 1 tab PO BEDTIME@220 PRN (Reason: Constipation) RF: 0 Eliquis 5 mg tablet 5 mg PO BID@0900,1999 RF: 0 zonisamide 100 mg capsule 100 mg PO BEDTIME@1999 RF: 0 pantoprazole 40 mg tablet,delayed release (DR/EC) 40 mg PO DAILY@06 RF: 0 oxycodone-acetaminophen 5-325 mg Tablet 1 tab PO BIDWMEAL PRN (Reason: Pain) Qty: 10 RF: 0 levothyroxine 125 mcg tablet 112 mcg PO DAILY@2199 RF: 0 metolazone 2.5 mg Tablet 2.5 mg PO DAILY@0600 RF: 0 Tylenol 325 mg Tablet 325 - 650 mg PO QID PRN (Reason: Pain) RF: 0 Zofran 4 mg Tablet 4 mg PO Q4H PRN (Reason: NAUSEA/VOMITING) RF: 0 potassium chloride 20 mEq tablet,ER particles/crystals 20 meq PO TID@06,14,20 RF: 0 Milk of Magnesia 400 mg/5 mL Suspension 400 mg PO DAILY PRN (Reason: Constipation) RF: 0 furosemide 80 mg Tablet 80 mg PO BID@0600,1400 RF: 0 baclofen 10 mg Tablet 10 mg PO TID PRN (Reason: MUSCLE SPASMS) RF: 0 bisacodyl 10 mg Suppository 10 mg NM DAILY PRN (Reason: Constipation) RF: 0 Enema Disposable 19-7 gram/118 mL Enema 118 ml NM DAILY PRN (Reason: Constipation) RF: 0 Flomax 0.4 mg capsule 0.4 mg PO DAILY@1999 RF: 0 ferrous sulfate 325 mg (65 mg iron) tablet,delayed release (DR/EC) 325 mg PO DAILY@0800 RF: 0 metoprolol tartrate 25 mg tablet 12.5 mg PO BID@0800,2000 RF: 0 Discharge Orders: Discharge ED (Routine); Ordered 09/24/20 Ordered By: Chauncey Douglas Referrals: Liza Davila NP [Primary Care Provider] - Discharge Diet: Advance as tolerated Discharge Activity: Resume usual activity Patient Instructions: Hypokalemia (ED) Coding Level of Care Code ED Costume Cutter for Chg Fwd Documented by User: Chauncey Douglas MD 09/24/20 19:33 HPI - General Adult General: Chief complaint: Recheck/Abnormal Lab/Rx Stated complaint: LOW POTASSIUM Time Seen by Provider: 09/24/20 17:09 PFSH ED PFSH: Medical History Abnormal angiogram Aortic valve stenosis Severe. Chronic back pain COPD (chronic obstructive pulmonary disease) Generalized anxiety disorder Gross hematuria Hyperlipidemia Hypertension Hypothyroidism Major depressive disorder, recurrent, moderate Obstructive pyelonephritis Osteoarthritis Sleep apnea Ureteral calculus, right Surgical History H/O cardiac catheterization H/O cystoscopy H/O lateral meniscus repair of left knee S/P thyroidectomy Family History Father Hypertension Hyperlipidemia Cancer Brother Hypertension CAD (coronary artery disease) Hyperlipidemia Sister Hypertension Cancer Grandfather Hypertension Diabetes Grandmother Hypertension CAD (coronary artery disease) Cancer Diabetes Mother CAD (coronary artery disease) Hypertension Hyperlipidemia Cancer Denies family history of Anesthesia complication Social History Smoking and tobacco status: current every day smoker cigarettes Years cigarettes smoked: 34 Quit status (tobacco): considering quitting Smoking risk assessment/counseling performed?: Yes Alcohol intake: current Alcohol intake frequency: holidays/special occasions only Desire information about alcohol rehabilitation?: No Counseling given: No Marital status: Single Current gender identity: Female Course Vital Signs: Vital signs: Vital Signs Pulse Rate 78 09/24/20 21:37 Respiratory Rate 18 09/24/20 17:14 Blood Pressure 114/60 09/24/20 21:37 Pulse Oximetry 95 09/24/20 21:37 MDM - General Adult MDM Narrative: Medical decision making narrative: Patient presents here with hypokalemia from the intermediate. Her potassium here is improved and is at 2.7. I believe she is stable for discharge and she is to take a potassium supplement which I will prescribe. She is to have her potassium checked at the intermediate. She is return if worsening. She understands agrees to plan. Lab Data: Labs: Lab Results 09/24/20 09/24/20 Range/Units 18:35 18:35 WBC 6.7 (4.0-10.0) 10^3/ uL RBC 3.38 L (4.1-5.3) 10^6/u L Hgb 9.1 L (11.5-15.3) g/dL Hct 27.9 L (37.0-47.0) % MCV 82.5 (81-99) fL MCH 26.9 L (28.0-34.0) pg MCHC 32.6 (30.0-36.0) g/dL RDW 23.3 H (12.1-15.1) % Plt Count 165 (130-400) 10^3/c mm MPV 11.2 H (7.4-10.4) fL Neut % (Auto) 54.4 % Lymph % (Auto) 23.9 % Lamar % (Auto) 20.2 % Eos % (Auto) 1.0 % Baso % (Auto) 0.4 % Neut # (Auto) 3.65 (1.8-7.7) 10^3/u L Lymph # (Auto) 1.6 (0.8-4.8) 10^3/u L Lamar # (Auto) 1.4 H (0.2-0.9) 10^3/u L Eos # (Auto) 0.1 (0.0-0.8) 10^3/u L Baso # (Auto) 0.0 (0.0-0.1) 10^3/u L Nucleated RBC % (a uto) 0 % Nucleated RBCs # 0.0 /100WBC Sodium 137 (136-145) mmol/L Potassium 2.7 L* D (3.5-5.1) mmol/L Chloride 96 L (98-107) mmol/L Carbon Dioxide 29 (22-29) mmol/L Anion Gap 14.7 (5-19) BUN 26 H (6-20) mg/dL Creatinine 1.2 H (0.5-0.9) mg/dL GFR Calculation 47.0 L (90-130) mL/min Glucose 99 (65-115) mg/dL Calculated Osmolal ity 289 (285-295) mOsm/k g Calcium 8.1 L (8.5-10.5) mg/dL EKG Data^: EKG 1: Attestation: I personally reviewed and interpreted this EKG as follows: EKG interpretation date: 09/24/20 EKG interpretation time: 18:42 Interpretation: nsr hr [address] or t wave abnormalities qrs 101 qtc 441 Discharge Plan Discharge Patient Disposition: Home Clinical Impression: Hypokalemia Condition: Stable Prescriptions: New potassium chloride 20 mEq packet 40 meq PO BID 7 Days Qty: 30 RF: 0 No Action montelukast [Singulair] 10 mg tablet 10 mg PO DAILY@0800 RF: 0 paroxetine HCl [Paxil] 10 mg tablet 10 mg PO BEDTIME@22 RF: 0 aripiprazole [Abilify] 5 mg tablet 5 mg PO DAILY@20 RF: 0 rosuvastatin 40 mg Tablet 40 mg PO DAILY@22 RF: 0 albuterol sulfate 2.5 mg /3 mL (0.083 %) solution for nebulization 2.5 mg inhalation Q6H PRN (Reason: Shortness Of Breath) RF: 0 nitroglycerin [Nitrostat] 0.4 mg Tablet, Sublingual 0.4 mg SUBLINGUAL Q5M PRN (Reason: Chest Pain) RF: 0 fluticasone propionate 50 mcg/actuation spray,suspension 1 - 2 spray INTRANASAL DAILY PRN (Reason: unknown) RF: 0 lactulose 20 gram/30 mL Solution 20 g PO Q6H Qty: 2880 RF: 0 sennosides-docusate sodium [Senexon-S] 8.6-50 mg tablet 1 tab PO BEDTIME@0 PRN (Reason: Constipation) RF: 0 Eliquis 5 mg tablet 5 mg PO BID@899,1999 RF: 0 zonisamide 100 mg capsule 100 mg PO BEDTIME@1999 RF: 0 pantoprazole 40 mg tablet,delayed release (DR/EC) 40 mg PO DAILY@0600 RF: 0 oxycodone-acetaminophen 5-325 mg Tablet 1 tab PO BIDWMEAL PRN (Reason: Pain) Qty: 10 RF: 0 levothyroxine 125 mcg tablet 112 mcg PO DAILY@2199 RF: 0 metolazone 2.5 mg Tablet 2.5 mg PO DAILY@0600 RF: 0 Tylenol 325 mg Tablet 325 - 650 mg PO QID PRN (Reason: Pain) RF: 0 Zofran 4 mg Tablet 4 mg PO Q4H PRN (Reason: NAUSEA/VOMITING) RF: 0 potassium chloride 20 mEq tablet,ER particles/crystals 20 meq PO TID@06,14,20 RF: 0 Milk of Magnesia 400 mg/5 mL Suspension 400 mg PO DAILY PRN (Reason: Constipation) RF: 0 furosemide 80 mg Tablet 80 mg PO BID@0600,1400 RF: 0 baclofen 10 mg Tablet 10 mg PO TID PRN (Reason: MUSCLE SPASMS) RF: 0 bisacodyl 10 mg Suppository 10 mg NM DAILY PRN (Reason: Constipation) RF: 0 Enema Disposable 19-7 gram/118 mL Enema 118 ml NM DAILY PRN (Reason: Constipation) RF: 0 Flomax 0.4 mg capsule 0.4 mg PO DAILY@1999 RF: 0 ferrous sulfate 325 mg (65 mg iron) tablet,delayed release (DR/EC) 325 mg PO DAILY@0800 RF: 0 metoprolol tartrate 25 mg tablet 12.5 mg PO BID@799,1999 RF: 0 Discharge Orders: Discharge ED (Routine); Ordered 09/24/20 Ordered By: Chauncey Douglas Referrals: Liza Davila [facility] NURSE [Primary Care Provider] - Discharge Diet: Advance as tolerated Discharge Activity: Resume usual activity Patient Instructions: Hypokalemia (ED) Coding Level of Care Code ED Costume Cutter for Jose Graham
[2020-09-24] MEDS: potassium chloride oral liq 20 mEq/15 mL UDC 60 MEQ PO (17:22)
--- NOTE | 2020-09-24 18:10 | ECG_ITS ---
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 Measurements Intervals [place] Rate: 84 P: 10 OR: 158 QRS: 64 QRSD: 101 T: 52 QT: 400 QTc: 474 Interpretive Statements SINUS RHYTHM MINIMAL ST DEPRESSION [0.025+ mV ST DEPRESSION] Compared to ECG 08/16/2020 13:37:52 ST (T wave) deviation now present Sinus tachycardia no longer present Electronically Signed On 09-24-2020 21:03:42 CDT by Bacilio Riddle M.D. [id number] f
[2020-09-24] MEDS: sodium chloride 0.9% 1,000 ML 999 ML IV ×2 (18:15→21:43)
[2020-09-24] MEDS: potassium chloride oral liq 20 mEq/15 mL UDC 40 MEQ PO (18:15)
[2020-09-24 18:43] LABS: Basophils % 0.4 %; Eosinophils # 0.1 10^3/uL (0.0-0.8); Hematocrit 27.9 % (37.0-47.0); Hemoglobin 9.1 g/dL (11.5-15.3); Lymphocytes # 1.6 10^3/uL (0.8-4.8); Lymphocytes % 23.9 %; Mean Corpuscular HGB Conc 32.6 g/dL (30.0-36.0); Mean Corpuscular Hemoglobin 26.9 pg (28.0-34.0); Mean Corpuscular Volume 82.5 fL (81-99); Mean Platelet Volume 11.2 fL (7.4-10.4); Monocytes # 1.4 10^3/uL (0.2-0.9); Monocytes % 20.2 %; Neutrophils # 3.65 10^3/uL (1.8-7.7); Neutrophils % 54.4 %; Nucleated Red Blood Cells % 0 %; Platelet Count 165 10^3/cmm (130-400); Red Blood Count 3.38 10^6/uL (4.1-5.3); Red Cell Distribution Width 23.3 % (12.1-15.1); White Blood Count 6.7 10^3/uL (4.0-10.0)
[2020-09-24 18:59] LABS: Anion Gap 14.7 (5-19); Blood Urea Nitrogen 26 mg/dL (6-20); Calcium 8.1 mg/dL (8.5-10.5); Carbon Dioxide 29 mmol/L (22-29); Chloride 96 mmol/L (98-107); Glucose 99 mg/dL (65-115); Osmolality Calculated 289 mOsm/kg (285-295); Sodium 137 mmol/L (136-145)
[2020-09-24 19:03] LABS: Potassium 2.7 mmol/L (3.5-5.1)
[2020-09-24 19:21] VITALS: BP 110/49; PULSE 86; O2SAT 96
[2020-09-24 21:01] VITALS: PULSE 82; O2SAT 90
[2020-09-24 21:36] VITALS: BP 114/60; PULSE 78; O2SAT 95
[2020-09-24 21:37] VITALS: BP 114/60; PULSE 78; O2SAT 95
== END 2020-09-24 21:57 | disposition home or self-care (01) ==
PROVIDERS: Family Medicine; Emergency Provider Emergency Medicine; PCP Nurse Practitioner Family
DX: E87.6 Hypokalemia (principal); Z79.01 Long term (current) use of anticoagulants; J44.9 Chronic obstructive pulmonary disease, unspecified; E78.5 Hyperlipidemia, unspecified; I10 Essential (primary) hypertension; F17.210 Nicotine dependence, cigarettes, uncomplicated
CPT/HCPCS: 80048; 84132; 85025; 93005; 96360; 96361; 99284; 99291; J7030

== ENCOUNTER 2020-09-27 12:41 | Outpatient (CLI) | payer MEDICARE, MEDICAID, SELFPAY ==
[2020-04-23 13:43] VITALS: BP 124/66; BMI 56.5
[2020-09-27 13:13] LABS: Basophils % 0.1 %; Eosinophils % 0.3 %; Hematocrit 29.4 % (37.0-47.0); Hemoglobin 9.4 g/dL (11.5-15.3); Lymphocytes # 1.1 10^3/uL (0.8-4.8); Lymphocytes % 12.7 %; Mean Corpuscular Hemoglobin 26.8 pg (28.0-34.0); Mean Corpuscular Volume 83.8 fL (81-99); Mean Platelet Volume 12.1 fL (7.4-10.4); Monocytes # 1.1 10^3/uL (0.2-0.9); Monocytes % 12.8 %; Neutrophils # 6.57 10^3/uL (1.8-7.7); Neutrophils % 73.9 %; Nucleated Red Blood Cells % 0 %; Platelet Count 173 10^3/cmm (130-400); Red Blood Count 3.51 10^6/uL (4.1-5.3); Red Cell Distribution Width 22.8 % (12.1-15.1); White Blood Count 8.9 10^3/uL (4.0-10.0)
[2020-09-27 13:38] LABS: Blood Urea Nitrogen 37 mg/dL (6-20); Calcium 8.5 mg/dL (8.5-10.5); Carbon Dioxide 32 mmol/L (22-29); Chloride 93 mmol/L (98-107); Glomerular Filtration Rate 33.7 mL/min (90-130); Glucose 98 mg/dL (65-115); Osmolality Calculated 295 mOsm/kg (285-295); Sodium 138 mmol/L (136-145)
[2020-09-27 14:00] LABS: Anion Gap 15.9 (5-19); Potassium 2.9 mmol/L (3.5-5.1)
== END 2020-09-27 12:42 | disposition home or self-care (01) ==
LOC: LAB 12:44
PROVIDERS: PCP Nurse Practitioner Family; Visit Provider Internal Medicine
DX: D64.9 Anemia, unspecified (principal)
CPT/HCPCS: 80048; 85025

== ENCOUNTER 2020-09-28 12:48 | Emergency (ER) | payer MEDICARE, MEDICAID, SELFPAY ==
[2020-04-23 13:43] VITALS: BP 124/66; BMI 56.5
[2020-09-28 12:59] VITALS: BP 94/49; PULSE 80; RESP 20; TEMP 36.4; O2SAT 96; BMI 56.8
[2020-09-28 13:09] VITALS: BP 94/49; PULSE 80; RESP 22; O2SAT 94
[2020-09-28 13:53] LABS: Alanine Aminotransferase 61 U/L (0-33); Albumin Level 2.3 g/dL (3.5-5.2); Alkaline Phosphatase 534 IU/L (35-105); Blood Urea Nitrogen 39 mg/dL (6-20); Calcium 8.2 mg/dL (8.5-10.5); Carbon Dioxide 35 mmol/L (22-29); Globulin 3.2 g/dL (1.3-4.6); Glomerular Filtration Rate 29.4 mL/min (90-130); Glucose 108 mg/dL (65-115); Total Bilirubin 1.2 mg/dL (0.15-1.2); Total Protein 5.5 g/dL (6.6-8.7)
[2020-09-28] MEDS: sodium chloride 0.9% 250 ML IV (13:57)
[2020-09-28 13:59] LABS: Anion Gap 13.8 (5-19); Chloride 91 mmol/L (98-107); Osmolality Calculated 294 mOsm/kg (285-295); Sodium 137 mmol/L (136-145)
[2020-09-28 14:02] VITALS: BP 83/43; PULSE 83; RESP 16; O2SAT 94
[2020-09-28 14:06] LABS: Aspartate Amino Transferase 231 U/L (0-32); Potassium 2.8 mmol/L (3.5-5.1)
--- NOTE | 2020-09-28 14:28 | ED_ITS ---
HPI - General Adult General: Chief complaint: General Medical Stated complaint: LOW BP Time Seen by Provider: 09/28/20 12:54 History of Present Illness: HPI narrative: 54-year-old female presents to the emergency room with complaints of low blood pressure. She is a resident of a long term has chronic hypokalemia was here last week for that. She also has had some vaginal bleeding lately and is being monitored for that although the seems to be appropriate. Unfortunately she is also on Eliquis. Today she is simply complaining of low blood pressure although she is relatively asymptomatic. She has some chronic aches and pains which are not unusual for her. Reported blood pressure at the long term was 70 systolic over since arriving here she has been in the night mid 90s. Patient is nonambulatory so she is largely asymptomatic. Onset (ago): unknown Relieving factors: none Exacerbating factors: none Associated symptoms: Deny chest pain, confusion, cough, diaphoresis, decreased appetite, dyspnea, fevers/chills, headache(s), malaise, nausea, rash, palpitations, seizures, short of breath, syncope, vomiting or weakness Treatments prior to arrival: none Review of Systems Const: Denies: malaise or diaphoresis ENMT: Denies: throat pain, ear or mastoid pain, nasal discharge or nasal congestion Card: Denies: chest pain, palpitations or syncope Resp: Denies: dyspnea GI: Denies: nausea or vomiting : Denies: flank pain, difficulty voiding, dysuria, urinary frequency or urinary urgency Skin/Breast: Denies: rash Neuro: Denies: headache(s) or confusion PFSH ED PFSH: Medical History (Updated 10/02/20 @ 00:00 by ) Abnormal angiogram Aortic valve stenosis Severe. Chronic back pain Cirrhosis COPD (chronic obstructive pulmonary disease) Generalized anxiety disorder Gross hematuria Work-up in process with cystoscopy planned for exclusion of bladder tumor History of UTI History of VRE UTI, chronic indwelling catheter Hyperlipidemia Hypertension Hypothyroidism Major depressive disorder, recurrent, moderate Obstructive pyelonephritis Osteoarthritis Sleep apnea Ureteral calculus, right Surgical History H/O cardiac catheterization H/O cystoscopy H/O lateral meniscus repair of left knee S/P thyroidectomy Family History Father Hypertension Hyperlipidemia Cancer Brother Hypertension CAD (coronary artery disease) Hyperlipidemia Sister Hypertension Cancer Grandfather Hypertension Diabetes Grandmother Hypertension CAD (coronary artery disease) Cancer Diabetes Mother CAD (coronary artery disease) Hypertension Hyperlipidemia Cancer Denies family history of Anesthesia complication Social History Smoking and tobacco status: current every day smoker cigarettes Years cigarettes smoked: 34 Quit status (tobacco): considering quitting Smoking risk assessment/counseling performed?: Yes Alcohol intake: current Alcohol intake frequency: holidays/special occasions only Desire information about alcohol rehabilitation?: No Counseling given: No Marital status: Single Current gender identity: Female Physical Exam Const: COMMON NORMALS: no acute distress GENERAL APPEARANCE: cooperative and comfortable ORIENTATION/CONSCIOUSNESS: Yes awake, Yes oriented to person, Yes oriented to place and Yes oriented to time HENMT: COMMON NORMALS: normocephalic, atraumatic and hearing grossly normal bilaterally HEAD & SCALP: normocephalic and atraumatic Neck/C-Spine: COMMON NORMALS: no JVD Resp: COMMON NORMALS: normal respiratory effort, No retractions, No use of accessory muscles and clear to auscultation bilaterally AUSCULTATION: clear to auscultation bilaterally Cardio: COMMON NORMALS: no JVD, regular rate, regular rhythm and No murmurs present (Cardio) RATE: regular rate RHYTHM: regular rhythm GI: COMMON NORMALS: Soft to palpation and No hepatosplenomegaly present AUSCULTATION: Yes normoactive bowel sounds PALPATION: Yes Soft to palpation, No Tenderness to palpation present (GI), No Guarding due to palpation present (GI) and Yes No hepatosplenomegaly present Extremity: COMMON NORMALS: normal to inspection, capillary refill normal, no clubbing, cyanosis or edema, no calf tenderness and no pedal edema Neuro: SENSORIUM/ORIENTATION: Yes oriented to person, Yes oriented to place and Yes oriented to time Skin: COMMON NORMALS: no rashes or lesions noted GENERAL SKIN EXAM: no rashes or lesions noted Course Vital Signs: Vital signs: Vital Signs Temperature 97.5 F L 09/28/20 12:59 Pulse Rate 85 09/28/20 17:20 Respiratory Rate 16 09/28/20 17:20 Blood Pressure 126/49 09/28/20 15:06 Pulse Oximetry 95 09/28/20 17:20 MDM - General Adult MDM Narrative: Medical decision making narrative: As he was supplemented blood pressure improved we will decrease the Lasix to 80 mg daily follow-up with a BMP through the long term within the next 3 days. Lab Data: Labs: Lab Results 09/28/20 Range/Units 13:11 Sodium 137 (136-145) mmol/L Potassium 2.8 L* (3.5-5.1) mmol/L Chloride 91 L (98-107) mmol/L Carbon Dioxide 35 H (22-29) mmol/L Anion Gap 13.8 (5-19) BUN 39 H (6-20) mg/dL Creatinine 1.8 H (0.5-0.9) mg/dL GFR Calculation 29.4 L (90-130) mL/min Glucose 108 (65-115) mg/dL Calculated Osmolal ity 294 (285-295) mOsm/k g Calcium 8.2 L (8.5-10.5) mg/dL Total Bilirubin 1.2 (0.15-1.2) mg/dL AST 231 H (0-32) U/L ALT 61 H (0-33) U/L Alkaline Phosphata se 534 H (35-105) IU/L Total Protein 5.5 L (6.6-8.7) g/dL Albumin 2.3 L (3.5-5.2) g/dL Globulin 3.2 (1.3-4.6) g/dL Discharge Plan Discharge Patient Disposition: Home Clinical Impression: Hypotension, Hypokalemia Condition: Stable Prescriptions: Changed furosemide 80 mg Tablet 80 mg PO DAILY Qty: 0 RF: 0 No Action montelukast [Singulair] 10 mg tablet 10 mg PO DAILY@0800 RF: 0 albuterol sulfate 2.5 mg/0.5 mL solution for nebulization 5 mg inhalation Q6H PRN (Reason: COPD) RF: 0 Prevnar 13 (PF) 0.5 mL syringe 0.5 ml IM ONCE RF: 0 paroxetine HCl [Paxil] 10 mg tablet 10 mg PO BEDTIME@22 RF: 0 aripiprazole [Abilify] 5 mg tablet 5 mg PO DAILY@20 RF: 0 rosuvastatin 40 mg Tablet 40 mg PO DAILY@22 RF: 0 albuterol sulfate 2.5 mg /3 mL (0.083 %) solution for nebulization 2.5 mg inhalation Q6H PRN (Reason: Shortness Of Breath) RF: 0 nitroglycerin [Nitrostat] 0.4 mg Tablet, Sublingual 0.4 mg SUBLINGUAL Q5M PRN (Reason: Chest Pain) RF: 0 fluticasone propionate 50 mcg/actuation spray,suspension 1 - 2 spray INTRANASAL DAILY PRN (Reason: unknown) RF: 0 lactulose 20 gram/30 mL Solution 20 g PO Q6H Qty: 2880 RF: 0 simethicone 80 mg Tablet,Chewable 80,160 mg PO DAILY PRN (Reason: GAS PAIN) RF: 0 sennosides-docusate sodium [Senexon-S] 8.6-50 mg tablet 1 tab PO BEDTIME@2200 PRN (Reason: Constipation) RF: 0 Eliquis 5 mg tablet 5 mg PO BID@0800,1999 RF: 0 zonisamide 100 mg capsule 100 mg PO BEDTIME@1999 RF: 0 pantoprazole 40 mg tablet,delayed release (DR/EC) 40 mg PO DAILY@0600 RF: 0 oxycodone-acetaminophen 5-325 mg Tablet 1 tab PO BIDWMEAL PRN (Reason: Pain) Qty: 10 RF: 0 levothyroxine 125 mcg tablet 125 mcg PO DAILY@2200 RF: 0 metolazone 2.5 mg Tablet 2.5 mg PO DAILY@0600 RF: 0 acetaminophen [Tylenol] 325 mg Tablet 325 - 650 mg PO QID PRN (Reason: Pain) RF: 0 ondansetron HCl [Zofran] 4 mg Tablet 4 mg PO Q4H PRN (Reason: NAUSEA/VOMITING) RF: 0 potassium chloride 20 mEq tablet,ER particles/crystals 20 meq PO TID@06,14,20 RF: 0 magnesium hydroxide [Milk of Magnesia] 400 mg/5 mL Suspension 400 mg PO DAILY PRN (Reason: Constipation) RF: 0 baclofen 10 mg Tablet 10 mg PO TID PRN (Reason: MUSCLE SPASMS) RF: 0 bisacodyl 10 mg Suppository 10 mg VT DAILY PRN (Reason: Constipation) RF: 0 Enema Disposable 19-7 gram/118 mL Enema 118 ml VT DAILY PRN (Reason: Constipation) RF: 0 tamsulosin [Flomax] 0.4 mg capsule 0.4 mg PO DAILY@1999 RF: 0 ferrous sulfate 325 mg (65 mg iron) tablet,delayed release (DR/EC) 325 mg PO DAILY@0800 RF: 0 metoprolol tartrate 25 mg tablet 12.5 mg PO BID@0800,1999 RF: 0 Discharge Orders: Discharge ED (Routine); Ordered 09/28/20 Ordered By: Thomas Carter Referrals: Liza Davila NP [Primary Care Provider] - Discharge Diet: Usual diet Discharge Activity: Resume usual activity Patient Instructions: Opioid Safety Activity Restrictions/Additional Instructions: Increased potassium to 40 mEq 3 times daily x3 doses then resume usual dose. Decrease Lasix to once daily. Repeat BMP in 3 days. To follow-up with primary care doctor for further adjustments in medications. Coding Level of Care Code ED Project Management It Specialist for Jose Fwd Exam Comprehensive
[2020-09-28] MEDS: potassium chloride oral liq 20 mEq/15 mL UDC 60 MEQ PO (14:49)
[2020-09-28 15:06] VITALS: BP 126/49; PULSE 82; RESP 17; O2SAT 98
--- NOTE | 2020-09-28 15:33 | PC.NURSE ---
pt transport through [facility] set up with ride number [id number].
--- NOTE | 2020-09-28 15:58 | PC.NURSE ---
attempted to call nursing report to [facility]. No answer.
--- NOTE | 2020-09-28 16:02 | PC.NURSE ---
pt report called to Katarina KING in SBAR format.
[2020-09-28 17:20] VITALS: PULSE 85; RESP 16; O2SAT 95
--- NOTE | 2020-09-28 18:40 | PC.NURSE ---
[facility] the [facility]. Contacted [employer]. Advised that the pt trip is still listed as routing . [employer] reports that a ride should be here in 30-45 min. Trip number [id number]
== END 2020-09-28 19:15 | disposition home or self-care (01) ==
PROVIDERS: Emergency Provider Family Medicine; PCP Nurse Practitioner Family
DX: I95.9 Hypotension, unspecified (principal); E87.6 Hypokalemia; Z79.01 Long term (current) use of anticoagulants; J44.9 Chronic obstructive pulmonary disease, unspecified; E78.5 Hyperlipidemia, unspecified; I10 Essential (primary) hypertension; F17.210 Nicotine dependence, cigarettes, uncomplicated
CPT/HCPCS: 80053; 96360; 99283; J7050

== ENCOUNTER 2020-09-29 05:07 | Emergency (ER) | payer MEDICARE, MEDICAID, SELFPAY ==
[2020-04-23 13:43] VITALS: BP 124/66; BMI 56.5
[2020-09-29] VITALS (15 sets, daily range): BP systolic 76–104; BP diastolic 37–57; PULSE 81–690; RESP 14–33; TEMP 36.4–37.2; O2SAT 88–100; BMI 62.6
--- NOTE | 2020-09-29 05:39 | XR_ITS ---
WS: [id number] Portable AP upright chest, 09/29/2020 Clinical Data: dyspnea Comparison: Portable chest, 08/16/2020. Findings: Bilateral patchy opacities throughout both lungs have increased. There are bilateral effusi ons. The heart is enlarged. Monitor leads are on the chest wall. There are clips in the region of the T1 vertebral body. Monitor leads on the chest wall. XR/XR chest 1V portable [id number] Impression: 1. Increase in bilateral patchy opacities. 2. Bilateral pleural effusions. 3. Cardiomegaly.
--- NOTE | 2020-09-29 05:41 | ECG_ITS ---
[facility] Test Date: 2020-09-29 Pat Name: Maria G Merritt Department: Room: Gender: Female Administrator Of Home Health: : 1965 Requested By: Ciro Perez Order Number: [id number] Reading MD: SERAFIN JUDGE Measurements Intervals [place] Rate: 91 P: 53 W[place]: 174 QRS: 60 QRSD: 107 T: -43 QT: 391 QTc: 483 Interpretive Statements SINUS RHYTHM ST DEVIATION AND MODERATE T-WAVE ABNORMALITY, CONSIDER INFERIOR ISCHEMIA [-0.1+ mV T WAVE IN II/aVF] Compared to ECG 09/24/2020 18:42:29 T-wave abnormality now present Possible ischemia now present ST (T wave) deviation no longer present Electronically Signed On 09-29-2020 19:23:05 CDT by SERAFIN JUGDE [id number]
--- NOTE | 2020-09-29 05:43 | W.ED.SOB ---
Documented by User: Ciro Brooks MD 09/29/20 05:56 HPI - SOB/Dyspnea General: Chief Complaint: Shortness of Breath/Dyspnea Stated Complaint: SHORTNESS OF BREATH Time Seen by Provider: 09/29/20 05:31 Source: patient Mode of arrival: EMS Limitations: other (Poor historian;Clinical condition) History of Present Illness: HPI Narrative: Patient with increased shortness of breath. Apparently this is a chronic condition for her. She normally is hypotensive as well. Patient appears mildly somnolent. She denies any particular pain. She denies any fever. She is alert and oriented x3. MD elicited complaint: shortness of breath Onset (ago): unknown (Chronic) Context: other (Patient recently in the hospital for the same problems. Patient reportedly is a frequent visitor emergency room for the same problems) Timing: intermittent Severity: moderate Exacerbating factors: nothing Relieving factors: nothing Associated symptoms: Reports chest congestion and other (Chronic lymphedema and peripheral edema.); Deny abdominal pain, chest pain, diaphoresis, fever(s), hemoptysis, nausea, palpitations, syncope or vomiting Treatment prior to arrival: other (See nursing assessment) Related Data: Home oxygen amount: other (See nursing assessment) Review of Systems Const: Reports: fatigue and malaise; Denies: fever(s), chills, body aches or diaphoresis Eyes: Denies: change in vision ENMT: Denies: throat pain Card: Reports: swelling of feet/ankles and dyspnea on exertion; Denies: chest pain, palpitations or syncope Resp: Reports: dyspnea and chest congestion; Denies: productive cough or hemoptysis GI: Denies: abdominal pain, nausea or vomiting : Denies: flank pain Musc: Denies: neck pain or back pain Skin/Breast: Denies: rash or pruritus Neuro: Denies: headache(s) or numbness in extremities Psych: Denies: anxiety Elvis/Lymph: Denies: enlarged lymph nodes PFS ED PFSH: Medical History Abnormal angiogram Aortic valve stenosis Severe. Chronic back pain COPD (chronic obstructive pulmonary disease) Generalized anxiety disorder Gross hematuria Hyperlipidemia Hypertension Hypothyroidism Major depressive disorder, recurrent, moderate Obstructive pyelonephritis Osteoarthritis Sleep apnea Ureteral calculus, right Surgical History H/O cardiac catheterization H/O cystoscopy H/O lateral meniscus repair of left knee S/P thyroidectomy Family History Father Hypertension Hyperlipidemia Cancer Brother Hypertension CAD (coronary artery disease) Hyperlipidemia Sister Hypertension Cancer Grandfather Hypertension Diabetes Grandmother Hypertension CAD (coronary artery disease) Cancer Diabetes Mother CAD (coronary artery disease) Hypertension Hyperlipidemia Cancer Denies family history of Anesthesia complication Social History Smoking and tobacco status: current every day smoker cigarettes Years cigarettes smoked: 34 Quit status (tobacco): considering quitting Smoking risk assessment/counseling performed?: Yes Alcohol intake: current Alcohol intake frequency: holidays/special occasions only Desire information about alcohol rehabilitation?: No Counseling given: No Marital status: Single Current gender identity: Female Physical Exam Const: COMMON NORMALS: patient oriented x3 EXAM LIMITATIONS: altered mental status GENERAL APPEARANCE: cooperative and other (Mild lethargy, morbid obesity. Mild dyspnea) NUTRITIONAL APPEARANCE: obese ORIENTATION/CONSCIOUSNESS: Yes oriented to person, Yes oriented to place and Yes oriented to time OTHER: Blood pressure 87/49 heart rate 91 and a normal sinus rhythm HENMT: COMMON NORMALS: normocephalic and atraumatic HEAD & SCALP: normocephalic and atraumatic FACE & SINUS: normal facial exam MOUTH: Abnormal oral and palatal mucosa present (Mucous membranes are dry) Eye: COMMON NORMALS: Equal, round and reactive pupils present and EOMs intact bilaterally PUPIL: Yes Equal, round and reactive pupils present Neck/C-Spine: COMMON NORMALS: full ROM, no lymphadenopathy, supple and no meningeal signs GENERAL: Yes normal visual inspection Lymph: LYMPHATIC: no lymphadenopathy noted Chest: COMMONS NORMALS: normal inspection of the chest and normal palpation of entire chest wall CHEST: No Ecchymosis present and No rash Resp: COMMON NORMALS: No retractions EFFORT & INSPECTION: Yes respiratory distress (Mild) AUSCULTATION: crackles (Bilateral) Cardio: COMMON NORMALS: regular rate, regular rhythm and Peripheral pulses 2+ throughout JUGULAR VENOUS DISTENTION: no JVD RATE: regular rate RHYTHM: regular rhythm PERIPHERAL PULSES: Peripheral pulses 2+ throughout and other (3+ pitting edema lower extremities bilaterally. Patient has lymphedema renae) GI: COMMON NORMALS: Normal to inspection, nondistended, normoactive bowel sounds present (Morbid obesity) and non-tender : COMMON NORMALS: Yes no CVA tenderness BLADDER/KIDNEY EXAM: Yes no CVA tenderness Back/Pelvis: COMMON NORMALS: no CVA tenderness Extremity: COMMON NORMALS: full ROM and capillary refill normal GENERAL: Yes edema (Bilaterally) Neuro: COMMON NORMALS: patient oriented x3, CN's II-XII intact bilaterally, no focal motor deficits and no sensory deficits noted SENSORIUM/ORIENTATION: Yes oriented to person, Yes oriented to place and Yes oriented to time MENINGEAL SIGNS: Yes no meningeal signs Psych: COMMON NORMALS: mental status grossly normal and Normal thought process present THOUGHT PROCESS: Normal thought process present Skin: COMMON NORMALS: no rashes or lesions noted and no wounds GENERAL SKIN EXAM: no rashes or lesions noted Course Vital Signs: Vital signs: Vital Signs Temperature 97.6 F 09/29/20 05:08 Pulse Rate 690 H 09/29/20 08:15 Respiratory Rate 20 H 09/29/20 08:15 Blood Pressure 94/50 09/29/20 08:15 Pulse Oximetry 100 09/29/20 08:15 MDM - SOB/Dyspnea MDM Narrative: Medical decision making narrative: Care has been transitioned to Dr. Richardson emergency room physician Lab Data: Labs: Lab Results 09/29/20 09/29/20 09/29/20 Range/Units 05:20 05:20 05:20 WBC 12.1 H (4.0-10.0) 10^3/ uL RBC 3.14 L (4.1-5.3) 10^6/u L Hgb 8.4 L (11.5-15.3) g/dL Hct 25.4 L (37.0-47.0) % MCV 80.9 L (81-99) fL MCH 26.8 L (28.0-34.0) pg MCHC 33.1 (30.0-36.0) g/dL RDW 22.0 H (12.1-15.1) % Plt Count 163 (130-400) 10^3/c mm MPV 11.6 H (7.4-10.4) fL Neut % (Auto) 84.4 % Lymph % (Auto) 5.5 % [place] % (Auto) 9.5 % Eos % (Auto) 0.1 % Baso % (Auto) 0.1 % Neut # (Auto) 10.20 H (1.8-7.7) 10^3/u L Lymph # (Auto) 0.7 L (0.8-4.8) 10^3/u L [place] # (Auto) 1.2 H (0.2-0.9) 10^3/u L Eos # (Auto) 0.0 (0.0-0.8) 10^3/u L Baso # (Auto) 0.0 (0.0-0.1) 10^3/u L Nucleated RBC % (a uto) 0 % Nucleated RBCs # 0.0 /100WBC APTT (23.9-36.7) SECO NDS Specimen Type Sample Site ABG pH (7.35-7.45) ABG pCO2 (35-45) mmHg ABG pO2 (80.0-100.0) mmH g ABG HCO3 (22-26) mmol/L ABG Base Excess (-2.0-2.0) mmol/ L Mehdi Test Hematocrit (37-47) % Hgb O2 Saturation (95-100) % Carboxyhemoglobin (0.4-20.1) %THgb Methemoglobin (0.4-1.5) % Total Hemoglobin (12-16) g/dL O2 Delivery Device O2 Liters/Min % FiO2 % Senior Licensing Manager ID Sodium 136 (136-145) mmol/L Potassium 2.8 L* (3.5-5.1) mmol/L Chloride 93 L (98-107) mmol/L Carbon Dioxide 32 H (22-29) mmol/L Anion Gap 13.8 (5-19) BUN 42 H (6-20) mg/dL Creatinine 2.1 H (0.5-0.9) mg/dL GFR Calculation 24.6 L (90-130) mL/min Glucose 110 (65-115) mg/dL POC Glucose (70-110) mg/dL Calculated Osmolal ity 293 (285-295) mOsm/k g Lactic Acid 3.6 H (0.5-2.2) mmol/L Calcium 8.3 L (8.5-10.5) mg/dL Total Bilirubin 1.4 H (0.15-1.2) mg/dL AST 274 H (0-32) U/L ALT 71 H (0-33) U/L Alkaline Phosphata se 514 H (35-105) IU/L Troponin T Baselin e (0-10) ng/L NT-Pro-B Natriuret Pep 31504 H (0-125) pg/mL Total Protein 5.5 L (6.6-8.7) g/dL Albumin 2.2 L (3.5-5.2) g/dL Globulin 3.3 (1.3-4.6) g/dL Urine Color (Yellow) Urine Appearance (CLEAR) Urine pH (5-7) Ur Specific Gravit y (1.005-1.030) Urine Protein (Negative) Urine Glucose (UA) (Normal) Urine Ketones (Negative) Urine Blood (Negative) Urine Nitrate (Negative) Urine Bilirubin (Negative) Urine Urobilinogen (Negative) mg/dL Ur Leukocyte Yoly ase (Negative) Urine RBC (0-2) /hpf Urine WBC (0-5) /hpf Ur Squamous Epith Cells (0-5) /hpf Amorphous Sediment Urine Bacteria (NONE) /hpf Influenza Type A A g (Negative) Influenza Type B A g (Negative) SARS-CoV-2 Ag (Rap id) (Negative) 09/29/20 09/29/20 09/29/20 Range/Units 05:20 05:35 05:40 WBC (4.0-10.0) 10^3/ uL RBC (4.1-5.3) 10^6/u L Hgb (11.5-15.3) g/dL Hct (37.0-47.0) % MCV (81-99) fL MCH (28.0-34.0) pg MCHC (30.0-36.0) g/dL RDW (12.1-15.1) % Plt Count (130-400) 10^3/c mm MPV (7.4-10.4) fL Neut % (Auto) % Lymph % (Auto) % [place] % (Auto) % Eos % (Auto) % Baso % (Auto) % Neut # (Auto) (1.8-7.7) 10^3/u L Lymph # (Auto) (0.8-4.8) 10^3/u L [place] # (Auto) (0.2-0.9) 10^3/u L Eos # (Auto) (0.0-0.8) 10^3/u L Baso # (Auto) (0.0-0.1) 10^3/u L Nucleated RBC % (a uto) % Nucleated RBCs # /100WBC APTT (23.9-36.7) SECO NDS Specimen Type Arterial Sample Site Brachial, right ABG pH 7.46 H (7.35-7.45) ABG pCO2 50.9 H (35-45) mmHg ABG pO2 63.2 L (80.0-100.0) mmH g ABG HCO3 36.2 H (22-26) mmol/L ABG Base Excess 11.1 H (-2.0-2.0) mmol/ L Mehdi Test N/a Hematocrit 26.8 L (37-47) % Hgb O2 Saturation 89.5 L (95-100) % Carboxyhemoglobin 1.2 (0.4-20.1) %THgb Methemoglobin 1.3 (0.4-1.5) % Total Hemoglobin 8.8 L (12-16) g/dL O2 Delivery Device Nc O2 Liters/Min 4.0 % FiO2 36.0 % Senior Licensing Manager ID [id number] Sodium (136-145) mmol/L Potassium (3.5-5.1) mmol/L Chloride (98-107) mmol/L Carbon Dioxide (22-29) mmol/L Anion Gap (5-19) BUN (6-20) mg/dL Creatinine (0.5-0.9) mg/dL GFR Calculation (90-130) mL/min Glucose (65-115) mg/dL POC Glucose (70-110) mg/dL Calculated Osmolal ity (285-295) mOsm/k g Lactic Acid (0.5-2.2) mmol/L Calcium (8.5-10.5) mg/dL Total Bilirubin (0.15-1.2) mg/dL AST (0-32) U/L ALT (0-33) U/L Alkaline Phosphata se (35-105) IU/L Troponin T Baselin e 985 H* (0-10) ng/L NT-Pro-B Natriuret Pep (0-125) pg/mL Total Protein (6.6-8.7) g/dL Albumin (3.5-5.2) g/dL Globulin (1.3-4.6) g/dL Urine Color (Yellow) Urine Appearance (CLEAR) Urine pH (5-7) Ur Specific Gravit y (1.005-1.030) Urine Protein (Negative) Urine Glucose (UA) (Normal) Urine Ketones (Negative) Urine Blood (Negative) Urine Nitrate (Negative) Urine Bilirubin (Negative) Urine Urobilinogen (Negative) mg/dL Ur Leukocyte Yoly ase (Negative) Urine RBC (0-2) /hpf Urine WBC (0-5) /hpf Ur Squamous Epith Cells (0-5) /hpf Amorphous Sediment Urine Bacteria (NONE) /hpf Influenza Type A A g Negative (Negative) Influenza Type B A g Negative (Negative) SARS-CoV-2 Ag (Rap id) (Negative) 09/29/20 09/29/20 09/29/20 Range/Units 05:50 05:51 05:55 WBC (4.0-10.0) 10^3/ uL RBC (4.1-5.3) 10^6/u L Hgb (11.5-15.3) g/dL Hct (37.0-47.0) % MCV (81-99) fL MCH (28.0-34.0) pg MCHC (30.0-36.0) g/dL RDW (12.1-15.1) % Plt Count (130-400) 10^3/c mm MPV (7.4-10.4) fL Neut % (Auto) % Lymph % (Auto) % [place] % (Auto) % Eos % (Auto) % Baso % (Auto) % Neut # (Auto) (1.8-7.7) 10^3/u L Lymph # (Auto) (0.8-4.8) 10^3/u L [place] # (Auto) (0.2-0.9) 10^3/u L Eos # (Auto) (0.0-0.8) 10^3/u L Baso # (Auto) (0.0-0.1) 10^3/u L Nucleated RBC % (a uto) % Nucleated RBCs # /100WBC APTT 40.3 H (23.9-36.7) SECO NDS Specimen Type Sample Site ABG pH (7.35-7.45) ABG pCO2 (35-45) mmHg ABG pO2 (80.0-100.0) mmH g ABG HCO3 (22-26) mmol/L ABG Base Excess (-2.0-2.0) mmol/ L Mehdi Test Hematocrit (37-47) % Hgb O2 Saturation (95-100) % Carboxyhemoglobin (0.4-20.1) %THgb Methemoglobin (0.4-1.5) % Total Hemoglobin (12-16) g/dL O2 Delivery Device O2 Liters/Min % FiO2 % Senior Licensing Manager ID Sodium (136-145) mmol/L Potassium (3.5-5.1) mmol/L Chloride (98-107) mmol/L Carbon Dioxide (22-29) mmol/L Anion Gap (5-19) BUN (6-20) mg/dL Creatinine (0.5-0.9) mg/dL GFR Calculation (90-130) mL/min Glucose (65-115) mg/dL POC Glucose 116 H (70-110) mg/dL Calculated Osmolal ity (285-295) mOsm/k g Lactic Acid (0.5-2.2) mmol/L Calcium (8.5-10.5) mg/dL Total Bilirubin (0.15-1.2) mg/dL AST (0-32) U/L ALT (0-33) U/L Alkaline Phosphata se (35-105) IU/L Troponin T Baselin e (0-10) ng/L NT-Pro-B Natriuret Pep (0-125) pg/mL Total Protein (6.6-8.7) g/dL Albumin (3.5-5.2) g/dL Globulin (1.3-4.6) g/dL Urine Color (Yellow) Urine Appearance (CLEAR) Urine pH (5-7) Ur Specific Gravit y (1.005-1.030) Urine Protein (Negative) Urine Glucose (UA) (Normal) Urine Ketones (Negative) Urine Blood (Negative) Urine Nitrate (Negative) Urine Bilirubin (Negative) Urine Urobilinogen (Negative) mg/dL Ur Leukocyte Yoly ase (Negative) Urine RBC (0-2) /hpf Urine WBC (0-5) /hpf Ur Squamous Epith Cells (0-5) /hpf Amorphous Sediment Urine Bacteria (NONE) /hpf Influenza Type A A g (Negative) Influenza Type B A g (Negative) SARS-CoV-2 Ag (Rap id) Negative (Negative) 09/29/20 Range/Units 07:55 WBC (4.0-10.0) 10^3/ uL RBC (4.1-5.3) 10^6/u L Hgb (11.5-15.3) g/dL Hct (37.0-47.0) % MCV (81-99) fL MCH (28.0-34.0) pg MCHC (30.0-36.0) g/dL RDW (12.1-15.1) % Plt Count (130-400) 10^3/c mm MPV (7.4-10.4) fL Neut % (Auto) % Lymph % (Auto) % [place] % (Auto) % Eos % (Auto) % Baso % (Auto) % Neut # (Auto) (1.8-7.7) 10^3/u L Lymph # (Auto) (0.8-4.8) 10^3/u L [place] # (Auto) (0.2-0.9) 10^3/u L Eos # (Auto) (0.0-0.8) 10^3/u L Baso # (Auto) (0.0-0.1) 10^3/u L Nucleated RBC % (a uto) % Nucleated RBCs # /100WBC APTT (23.9-36.7) SECO NDS Specimen Type Sample Site ABG pH (7.35-7.45) ABG pCO2 (35-45) mmHg ABG pO2 (80.0-100.0) mmH g ABG HCO3 (22-26) mmol/L ABG Base Excess (-2.0-2.0) mmol/ L Mehdi Test Hematocrit (37-47) % Hgb O2 Saturation (95-100) % Carboxyhemoglobin (0.4-20.1) %THgb Methemoglobin (0.4-1.5) % Total Hemoglobin (12-16) g/dL O2 Delivery Device O2 Liters/Min % FiO2 % Senior Licensing Manager ID Sodium (136-145) mmol/L Potassium (3.5-5.1) mmol/L Chloride (98-107) mmol/L Carbon Dioxide (22-29) mmol/L Anion Gap (5-19) BUN (6-20) mg/dL Creatinine (0.5-0.9) mg/dL GFR Calculation (90-130) mL/min Glucose (65-115) mg/dL POC Glucose (70-110) mg/dL Calculated Osmolal ity (285-295) mOsm/k g Lactic Acid (0.5-2.2) mmol/L Calcium (8.5-10.5) mg/dL Total Bilirubin (0.15-1.2) mg/dL AST (0-32) U/L ALT (0-33) U/L Alkaline Phosphata se (35-105) IU/L Troponin T Baselin e (0-10) ng/L NT-Pro-B Natriuret Pep (0-125) pg/mL Total Protein (6.6-8.7) g/dL Albumin (3.5-5.2) g/dL Globulin (1.3-4.6) g/dL Urine Color Red (Yellow) Urine Appearance Bloody A (CLEAR) Urine pH 6.5 (5-7) Ur Specific Gravit y 1.020 (1.005-1.030) Urine Protein 1+ H (Negative) Urine Glucose (UA) Norm (Normal) Urine Ketones Negative (Negative) Urine Blood 3+ H (Negative) Urine Nitrate Negative (Negative) Urine Bilirubin 1+ H (Negative) Urine Urobilinogen 4 H (Negative) mg/dL Ur Leukocyte Yoly ase Trace H (Negative) Urine RBC 40-50 H (0-2) /hpf Urine WBC 0-4 H (0-5) /hpf Ur Squamous Epith Cells 0-4 H (0-5) /hpf Amorphous Sediment Not Reportable Urine Bacteria Trace (NONE) /hpf Influenza Type A A g (Negative) Influenza Type B A g (Negative) SARS-CoV-2 Ag (Rap id) (Negative) Critical Care Time Critical Care Time: Critical Care Time: Yes Total Critical Care Time: 30 Attestation: Care of shortness of breath and hypotension, see orders Discharge Plan Discharge Patient Disposition: Xfer Short-Term Hosp Clinical Impression: Cardiogenic shock, Chronic hypotension, Lymphedema in adult patient, Acute hypercapnic respiratory failure, Elevated troponin, Elevated lactic acid level, Acute kidney injury, Aortic stenosis, severe, Congestive heart failure Condition: Critical Referrals: Liza Davila NP [Primary Care Provider] - Coding Level of Care Code ED [employer] Facility Operator for Chg Fwd Exam Comprehensive Documented by User: Pan Richardson MD 09/29/20 08:51 HPI - SOB/Dyspnea General: Chief Complaint: Shortness of Breath/Dyspnea Stated Complaint: SHORTNESS OF BREATH Time Seen by Provider: 09/29/20 05:31 PFSH ED PFSH: Medical History Abnormal angiogram Aortic valve stenosis Severe. Chronic back pain COPD (chronic obstructive pulmonary disease) Generalized anxiety disorder Gross hematuria Hyperlipidemia Hypertension Hypothyroidism Major depressive disorder, recurrent, moderate Obstructive pyelonephritis Osteoarthritis Sleep apnea Ureteral calculus, right Surgical History H/O cardiac catheterization H/O cystoscopy H/O lateral meniscus repair of left knee S/P thyroidectomy Family History Father Hypertension Hyperlipidemia Cancer Brother Hypertension CAD (coronary artery disease) Hyperlipidemia Sister Hypertension Cancer Grandfather Hypertension Diabetes Grandmother Hypertension CAD (coronary artery disease) Cancer Diabetes Mother CAD (coronary artery disease) Hypertension Hyperlipidemia Cancer Denies family history of Anesthesia complication Social History Smoking and tobacco status: current every day smoker cigarettes Years cigarettes smoked: 34 Quit status (tobacco): considering quitting Smoking risk assessment/counseling performed?: Yes Alcohol intake: current Alcohol intake frequency: holidays/special occasions only Desire information about alcohol rehabilitation?: No Counseling given: No Marital status: Single Current gender identity: Female Course Vital Signs: Vital signs: Vital Signs Temperature 97.6 F 09/29/20 05:08 Pulse Rate 690 H 09/29/20 08:15 Respiratory Rate 20 H 09/29/20 08:15 Blood Pressure 94/50 09/29/20 08:15 Pulse Oximetry 100 09/29/20 08:15 MDM - SOB/Dyspnea MDM Narrative: Medical decision making narrative: I took over care at shift change. I arrived to find the patient in mild respiratory distress satting in the low 90s moaning in pain. Her lungs have crackles diffusely. She has severe lymphedema in both lower extremities chronically and lives at a halfway. She has been seen in the past couple days for hypokalemia and sent back however now she is slightly altered. She was placed on BiPAP. Her EKG had ST depressions in multiple leads and troponin came back at 985 which is elevated. She does complain of left-sided chest pain. Discussed with Dr. Steven who recommended admitting her to the ICU. I discussed the case with Dr. Fink who felt she should be transferred because of her severe aortic stenosis. She has seen Dr. Ho in the past and he recommended she set up with Dr. Sousa at [facility] who can accommodate her for a potential valve replacement. Her pressure has been severely depressed here which has been the past couple of visits as well. The possibility exists that this is cardiogenic shock from her severe aortic stenosis. Versus sepsis versus CHF exacerbation versus other pathologies. I cannot give her IV fluids because she is fluid overloaded from her CHF. Started her on Levophed to increase her pressure. She has been stable. I discussed with Dr. Caldwell at [facility] who accepts for transfer. Also started her empirically on Vanc/zosyn to cover potential sepsis organisms. Lab Data: Labs: Lab Results 09/29/20 09/29/20 09/29/20 Range/Units 05:20 05:20 05:20 WBC 12.1 H (4.0-10.0) 10^3/ uL RBC 3.14 L (4.1-5.3) 10^6/u L Hgb 8.4 L (11.5-15.3) g/dL Hct 25.4 L (37.0-47.0) % MCV 80.9 L (81-99) fL MCH 26.8 L (28.0-34.0) pg MCHC 33.1 (30.0-36.0) g/dL RDW 22.0 H (12.1-15.1) % Plt Count 163 (130-400) 10^3/c mm MPV 11.6 H (7.4-10.4) fL Neut % (Auto) 84.4 % Lymph % (Auto) 5.5 % [place] % (Auto) 9.5 % Eos % (Auto) 0.1 % Baso % (Auto) 0.1 % Neut # (Auto) 10.20 H (1.8-7.7) 10^3/u L Lymph # (Auto) 0.7 L (0.8-4.8) 10^3/u L [place] # (Auto) 1.2 H (0.2-0.9) 10^3/u L Eos # (Auto) 0.0 (0.0-0.8) 10^3/u L Baso # (Auto) 0.0 (0.0-0.1) 10^3/u L Nucleated RBC % (a uto) 0 % Nucleated RBCs # 0.0 /100WBC APTT (23.9-36.7) SECO NDS Specimen Type Sample Site ABG pH (7.35-7.45) ABG pCO2 (35-45) mmHg ABG pO2 (80.0-100.0) mmH g ABG HCO3 (22-26) mmol/L ABG Base Excess (-2.0-2.0) mmol/ L Mehdi Test Hematocrit (37-47) % Hgb O2 Saturation (95-100) % Carboxyhemoglobin (0.4-20.1) %THgb Methemoglobin (0.4-1.5) % Total Hemoglobin (12-16) g/dL O2 Delivery Device O2 Liters/Min % FiO2 % Senior Licensing Manager ID Sodium 136 (136-145) mmol/L Potassium 2.8 L* (3.5-5.1) mmol/L Chloride 93 L (98-107) mmol/L Carbon Dioxide 32 H (22-29) mmol/L Anion Gap 13.8 (5-19) BUN 42 H (6-20) mg/dL Creatinine 2.1 H (0.5-0.9) mg/dL GFR Calculation 24.6 L (90-130) mL/min Glucose 110 (65-115) mg/dL POC Glucose (70-110) mg/dL Calculated Osmolal ity 293 (285-295) mOsm/k g Lactic Acid 3.6 H (0.5-2.2) mmol/L Calcium 8.3 L (8.5-10.5) mg/dL Total Bilirubin 1.4 H (0.15-1.2) mg/dL AST 274 H (0-32) U/L ALT 71 H (0-33) U/L Alkaline Phosphata se 514 H (35-105) IU/L Troponin T Baselin e (0-10) ng/L NT-Pro-B Natriuret Pep 32685 H (0-125) pg/mL Total Protein 5.5 L (6.6-8.7) g/dL Albumin 2.2 L (3.5-5.2) g/dL Globulin 3.3 (1.3-4.6) g/dL Urine Color (Yellow) Urine Appearance (CLEAR) Urine pH (5-7) Ur Specific Gravit y (1.005-1.030) Urine Protein (Negative) Urine Glucose (UA) (Normal) Urine Ketones (Negative) Urine Blood (Negative) Urine Nitrate (Negative) Urine Bilirubin (Negative) Urine Urobilinogen (Negative) mg/dL Ur Leukocyte Yoly ase (Negative) Urine RBC (0-2) /hpf Urine WBC (0-5) /hpf Ur Squamous Epith Cells (0-5) /hpf Amorphous Sediment Urine Bacteria (NONE) /hpf Influenza Type A A g (Negative) Influenza Type B A g (Negative) SARS-CoV-2 Ag (Rap id) (Negative) 09/29/20 09/29/20 09/29/20 Range/Units 05:20 05:35 05:40 WBC (4.0-10.0) 10^3/ uL RBC (4.1-5.3) 10^6/u L Hgb (11.5-15.3) g/dL Hct (37.0-47.0) % MCV (81-99) fL MCH (28.0-34.0) pg MCHC (30.0-36.0) g/dL RDW (12.1-15.1) % Plt Count (130-400) 10^3/c mm MPV (7.4-10.4) fL Neut % (Auto) % Lymph % (Auto) % [place] % (Auto) % Eos % (Auto) % Baso % (Auto) % Neut # (Auto) (1.8-7.7) 10^3/u L Lymph # (Auto) (0.8-4.8) 10^3/u L [place] # (Auto) (0.2-0.9) 10^3/u L Eos # (Auto) (0.0-0.8) 10^3/u L Baso # (Auto) (0.0-0.1) 10^3/u L Nucleated RBC % (a uto) % Nucleated RBCs # /100WBC APTT (23.9-36.7) SECO NDS Specimen Type Arterial Sample Site Brachial, right ABG pH 7.46 H (7.35-7.45) ABG pCO2 50.9 H (35-45) mmHg ABG pO2 63.2 L (80.0-100.0) mmH g ABG HCO3 36.2 H (22-26) mmol/L ABG Base Excess 11.1 H (-2.0-2.0) mmol/ L Mehdi Test N/a Hematocrit 26.8 L (37-47) % Hgb O2 Saturation 89.5 L (95-100) % Carboxyhemoglobin 1.2 (0.4-20.1) %THgb Methemoglobin 1.3 (0.4-1.5) % Total Hemoglobin 8.8 L (12-16) g/dL O2 Delivery Device Nc O2 Liters/Min 4.0 % FiO2 36.0 % Senior Licensing Manager ID [id number] Sodium (136-145) mmol/L Potassium (3.5-5.1) mmol/L Chloride (98-107) mmol/L Carbon Dioxide (22-29) mmol/L Anion Gap (5-19) BUN (6-20) mg/dL Creatinine (0.5-0.9) mg/dL GFR Calculation (90-130) mL/min Glucose (65-115) mg/dL POC Glucose (70-110) mg/dL Calculated Osmolal ity (285-295) mOsm/k g Lactic Acid (0.5-2.2) mmol/L Calcium (8.5-10.5) mg/dL Total Bilirubin (0.15-1.2) mg/dL AST (0-32) U/L ALT (0-33) U/L Alkaline Phosphata se (35-105) IU/L Troponin T Baselin e 985 H* (0-10) ng/L NT-Pro-B Natriuret Pep (0-125) pg/mL Total Protein (6.6-8.7) g/dL Albumin (3.5-5.2) g/dL Globulin (1.3-4.6) g/dL Urine Color (Yellow) Urine Appearance (CLEAR) Urine pH (5-7) Ur Specific Gravit y (1.005-1.030) Urine Protein (Negative) Urine Glucose (UA) (Normal) Urine Ketones (Negative) Urine Blood (Negative) Urine Nitrate (Negative) Urine Bilirubin (Negative) Urine Urobilinogen (Negative) mg/dL Ur Leukocyte Yoly ase (Negative) Urine RBC (0-2) /hpf Urine WBC (0-5) /hpf Ur Squamous Epith Cells (0-5) /hpf Amorphous Sediment Urine Bacteria (NONE) /hpf Influenza Type A A g Negative (Negative) Influenza Type B A g Negative (Negative) SARS-CoV-2 Ag (Rap id) (Negative) 09/29/20 09/29/20 09/29/20 Range/Units 05:50 05:51 05:55 WBC (4.0-10.0) 10^3/ uL RBC (4.1-5.3) 10^6/u L Hgb (11.5-15.3) g/dL Hct (37.0-47.0) % MCV (81-99) fL MCH (28.0-34.0) pg MCHC (30.0-36.0) g/dL RDW (12.1-15.1) % Plt Count (130-400) 10^3/c mm MPV (7.4-10.4) fL Neut % (Auto) % Lymph % (Auto) % [place] % (Auto) % Eos % (Auto) % Baso % (Auto) % Neut # (Auto) (1.8-7.7) 10^3/u L Lymph # (Auto) (0.8-4.8) 10^3/u L [place] # (Auto) (0.2-0.9) 10^3/u L Eos # (Auto) (0.0-0.8) 10^3/u L Baso # (Auto) (0.0-0.1) 10^3/u L Nucleated RBC % (a uto) % Nucleated RBCs # /100WBC APTT 40.3 H (23.9-36.7) SECO NDS Specimen Type Sample Site ABG pH (7.35-7.45) ABG pCO2 (35-45) mmHg ABG pO2 (80.0-100.0) mmH g ABG HCO3 (22-26) mmol/L ABG Base Excess (-2.0-2.0) mmol/ L Mehdi Test Hematocrit (37-47) % Hgb O2 Saturation (95-100) % Carboxyhemoglobin (0.4-20.1) %THgb Methemoglobin (0.4-1.5) % Total Hemoglobin (12-16) g/dL O2 Delivery Device O2 Liters/Min % FiO2 % Senior Licensing Manager ID Sodium (136-145) mmol/L Potassium (3.5-5.1) mmol/L Chloride (98-107) mmol/L Carbon Dioxide (22-29) mmol/L Anion Gap (5-19) BUN (6-20) mg/dL Creatinine (0.5-0.9) mg/dL GFR Calculation (90-130) mL/min Glucose (65-115) mg/dL POC Glucose 116 H (70-110) mg/dL Calculated Osmolal ity (285-295) mOsm/k g Lactic Acid (0.5-2.2) mmol/L Calcium (8.5-10.5) mg/dL Total Bilirubin (0.15-1.2) mg/dL AST (0-32) U/L ALT (0-33) U/L Alkaline Phosphata se (35-105) IU/L Troponin T Baselin e (0-10) ng/L NT-Pro-B Natriuret Pep (0-125) pg/mL Total Protein (6.6-8.7) g/dL Albumin (3.5-5.2) g/dL Globulin (1.3-4.6) g/dL Urine Color (Yellow) Urine Appearance (CLEAR) Urine pH (5-7) Ur Specific Gravit y (1.005-1.030) Urine Protein (Negative) Urine Glucose (UA) (Normal) Urine Ketones (Negative) Urine Blood (Negative) Urine Nitrate (Negative) Urine Bilirubin (Negative) Urine Urobilinogen (Negative) mg/dL Ur Leukocyte Yoly ase (Negative) Urine RBC (0-2) /hpf Urine WBC (0-5) /hpf Ur Squamous Epith Cells (0-5) /hpf Amorphous Sediment Urine Bacteria (NONE) /hpf Influenza Type A A g (Negative) Influenza Type B A g (Negative) SARS-CoV-2 Ag (Rap id) Negative (Negative) 09/29/20 Range/Units 07:55 WBC (4.0-10.0) 10^3/ uL RBC (4.1-5.3) 10^6/u L Hgb (11.5-15.3) g/dL Hct (37.0-47.0) % MCV (81-99) fL MCH (28.0-34.0) pg MCHC (30.0-36.0) g/dL RDW (12.1-15.1) % Plt Count (130-400) 10^3/c mm MPV (7.4-10.4) fL Neut % (Auto) % Lymph % (Auto) % [place] % (Auto) % Eos % (Auto) % Baso % (Auto) % Neut # (Auto) (1.8-7.7) 10^3/u L Lymph # (Auto) (0.8-4.8) 10^3/u L [place] # (Auto) (0.2-0.9) 10^3/u L Eos # (Auto) (0.0-0.8) 10^3/u L Baso # (Auto) (0.0-0.1) 10^3/u L Nucleated RBC % (a uto) % Nucleated RBCs # /100WBC APTT (23.9-36.7) SECO NDS Specimen Type Sample Site ABG pH (7.35-7.45) ABG pCO2 (35-45) mmHg ABG pO2 (80.0-100.0) mmH g ABG HCO3 (22-26) mmol/L ABG Base Excess (-2.0-2.0) mmol/ L Mehdi Test Hematocrit (37-47) % Hgb O2 Saturation (95-100) % Carboxyhemoglobin (0.4-20.1) %THgb Methemoglobin (0.4-1.5) % Total Hemoglobin (12-16) g/dL O2 Delivery Device O2 Liters/Min % FiO2 % Senior Licensing Manager ID Sodium (136-145) mmol/L Potassium (3.5-5.1) mmol/L Chloride (98-107) mmol/L Carbon Dioxide (22-29) mmol/L Anion Gap (5-19) BUN (6-20) mg/dL Creatinine (0.5-0.9) mg/dL GFR Calculation (90-130) mL/min Glucose (65-115) mg/dL POC Glucose (70-110) mg/dL Calculated Osmolal ity (285-295) mOsm/k g Lactic Acid (0.5-2.2) mmol/L Calcium (8.5-10.5) mg/dL Total Bilirubin (0.15-1.2) mg/dL AST (0-32) U/L ALT (0-33) U/L Alkaline Phosphata se (35-105) IU/L Troponin T Baselin e (0-10) ng/L NT-Pro-B Natriuret Pep (0-125) pg/mL Total Protein (6.6-8.7) g/dL Albumin (3.5-5.2) g/dL Globulin (1.3-4.6) g/dL Urine Color Red (Yellow) Urine Appearance Bloody A (CLEAR) Urine pH 6.5 (5-7) Ur Specific Gravit y 1.020 (1.005-1.030) Urine Protein 1+ H (Negative) Urine Glucose (UA) Norm (Normal) Urine Ketones Negative (Negative) Urine Blood 3+ H (Negative) Urine Nitrate Negative (Negative) Urine Bilirubin 1+ H (Negative) Urine Urobilinogen 4 H (Negative) mg/dL Ur Leukocyte Yoly ase Trace H (Negative) Urine RBC 40-50 H (0-2) /hpf Urine WBC 0-4 H (0-5) /hpf Ur Squamous Epith Cells 0-4 H (0-5) /hpf Amorphous Sediment Not Reportable Urine Bacteria Trace (NONE) /hpf Influenza Type A A g (Negative) Influenza Type B A g (Negative) SARS-CoV-2 Ag (Rap id) (Negative) Discharge Plan Discharge Patient Disposition: Xfer Short-Term Hosp Clinical Impression: Cardiogenic shock, Chronic hypotension, Lymphedema in adult patient, Acute hypercapnic respiratory failure, Elevated troponin, Elevated lactic acid level, Acute kidney injury, Aortic stenosis, severe, Congestive heart failure Condition: Critical Referrals: Liza Davila NP [Primary Care Provider] - Coding Level of Care Code ED Solid Waste Facility Operator for Chg Fwd Exam Comprehensive
[2020-09-29 05:50] LABS: Basophils % 0.1 %; Eosinophils % 0.1 %; Hematocrit 25.4 % (37.0-47.0); Hemoglobin 8.4 g/dL (11.5-15.3); Lymphocytes # 0.7 10^3/uL (0.8-4.8); Lymphocytes % 5.5 %; Mean Corpuscular HGB Conc 33.1 g/dL (30.0-36.0); Mean Corpuscular Hemoglobin 26.8 pg (28.0-34.0); Mean Corpuscular Volume 80.9 fL (81-99); Mean Platelet Volume 11.6 fL (7.4-10.4); Monocytes # 1.2 10^3/uL (0.2-0.9); Monocytes % 9.5 %; Neutrophils % 84.4 %; Nucleated Red Blood Cells % 0 %; Platelet Count 163 10^3/cmm (130-400); Red Blood Count 3.14 10^6/uL (4.1-5.3); White Blood Count 12.1 10^3/uL (4.0-10.0)
[2020-09-29 05:51] LABS: ABG PCO2 50.9 mmHg (35-45); ABG PH Result 7.46 (7.35-7.45); Arterial Blood Gas Hematocrit 26.8 % (37-47); Base Excess ABG 11.1 mmol/L (-2.0-2.0); Blood Gas Sample Site Brachial, right; Blood Gas Sample Type Arterial; Carboxyhemoglobin 1.2 %THgb (0.4-20.1); HCO3 ABG 36.2 mmol/L (22-26); HGB O2 Sat 89.5 % (95-100); Methemoglobin 1.3 % (0.4-1.5); Oxygen Device NC; PO2 ABG 63.2 mmHg (80.0-100.0); Total Hemoglobin 8.8 g/dL (12-16)
[2020-09-29 05:56] LABS: Glucose Point of Care 116 mg/dL (70-110)
[2020-09-29] MEDS: sodium chloride 0.9% 500 ML IV (06:03)
[2020-09-29 06:09] LABS: Lactic Sepsis W/Reflex 3.6 mmol/L (0.5-2.2)
[2020-09-29 06:12] LABS: Troponin(5th) Baseline 985 ng/L (0-10)
[2020-09-29 06:14] LABS: Alanine Aminotransferase 71 U/L (0-33); Albumin Level 2.2 g/dL (3.5-5.2); Alkaline Phosphatase 514 IU/L (35-105); Anion Gap 13.8 (5-19); Aspartate Amino Transferase 274 U/L (0-32); Blood Urea Nitrogen 42 mg/dL (6-20); Calcium 8.3 mg/dL (8.5-10.5); Carbon Dioxide 32 mmol/L (22-29); Chloride 93 mmol/L (98-107); Globulin 3.3 g/dL (1.3-4.6); Glomerular Filtration Rate 24.6 mL/min (90-130); Glucose 110 mg/dL (65-115); NT Pro B Type Natriuretic Pept 10901 pg/mL (0-125); Osmolality Calculated 293 mOsm/kg (285-295); Sodium 136 mmol/L (136-145); Total Bilirubin 1.4 mg/dL (0.15-1.2); Total Protein 5.5 g/dL (6.6-8.7)
[2020-09-29 06:19] LABS: Potassium 2.8 mmol/L (3.5-5.1)
[2020-09-29 06:23] LABS: Influenza A by IFA Negative (Negative); Influenza B by IFA Negative (Negative)
[2020-09-29 06:23] LABS: SARS Covid-2 Antigen Negative (Negative)
[2020-09-29 06:23] LABS: Partial Thromboplastin Time 40.3 SECONDS (23.9-36.7)
[2020-09-29] MEDS: potassium chloride premix 100 ML 25 MEQ IV (06:31)
--- NOTE | 2020-09-29 07:13 | XR_ITS ---
WS: [id number] Portable AP upright chest, 09/29/2020, 0715 hours Clinical Data: central line placement Comparison: Lateral chest, 09/29/2020 0602 hours Findings: A right internal jugular venous catheter has been inserted and ends in the superior vena ca va. XR/XR chest 1V portable 15103 Impression: Satisfactory insertion of right internal jugular venous catheter.
--- NOTE | 2020-09-29 07:30 | PC.NURSE ---
Received report assumed care. Noted Levo at 8 mcg and Pot 10meq infusing in left 20g. New IV started in right hand by Brian KING. Dr Richardson consulted anesthesiologist for Central line. Continue to monitor .
[2020-09-29 07:32] LABS: Reflex Lactate Order REFLEX LACTIC ORDERD
--- NOTE | 2020-09-29 07:33 | CT_ITS ---
WS: [id number] CT ABDOMEN PELVIS TECHNIQUE: Noncontrast CT of the abdomen and pelvis with coronal and sagittal reformatted images. CLINICAL INFORMATION: bloody urine COMPARISON: August 16, 2020 DLP: 2629.[address] scans at [facility] use at least one of these dose optimization techniques: automat ed exposure control; mA and/or kV adjustment per patient size (includes targeted exams where dose is matched to clinical indication); or iterative reconstruction. FINDINGS: Small bilateral pleural effusions with compressive atelectasis in the lung bases. This is progressed since August 16, 2020. Interstitial edema in the lung bases. Cirrhotic liver. Cholelithiasis. Small vo lume perihepatic and perisplenic ascites. Mild ascites in the pelvis. Diffuse body wall anasarca. Thi s is progressed from previous. Mesenteric edema. Noncontrast pancreas is unremarkable. Adrenal glands are normal. Right renal pelvic calculi unchanged since the prior examination with mild right pelvoca liectasis. Pelvic calculi measure 5 to 6 mm. Right ureter is decompressed. Nonobstructing left calyce al tip calculi. [place] catheter. Aortic calcification. Normal caliber abdominal aorta. Fat-containing umbilical hernia . Sigmoid diverticulosis. No evidence of acute diverticulitis. No evidence of small or large bowel ob struction. CT/CT kidney stone 00247 IMPRESSION: 1. 5 to 6 mm right renal pelvic calculi unchanged since August 17, 2019 with mi ld right pelvocaliectasis. Right ureter is decompressed. 2. Nonobstructing tiny left calyceal tip calculus. No hydronephrosis in the le ft kidney. 3. Diffuse body wall anasarca and mesenteric edema progressed from previous. S mall volume ascites. 4. Small bilateral pleural effusions compressive atelectasis in the lung bases and interstitial edema progressed from previous. 5. Cirrhotic liver. 6. Cholelithiasis. 7. [place] catheter. 8. No other significant changes from previous.
--- NOTE | 2020-09-29 07:40 | ANES.PROC ---
Anesthesia Procedures Procedure/Date: 09/29/20 Central Venous Insert: Time Out Performed: Yes Consent: requested by attending/covering physician, risks and benefits reviewed and patient agrees to proceed Central Line: New Anesthesia monitors: pulse oximetry, EKG, BP cuff and oxygen Vein cannulated: right internal jugular Post procedure: Obtain Chest X-Ray Additional Comments: 7fr 3-lumen 20cm, seldinger tech, sterile gown, gloves, hat and mask. Hematoma right neck related to high CVP and blood thinner. Patient tolerated well.
--- NOTE | 2020-09-29 07:41 | ECG_ITS ---
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
--- NOTE | 2020-09-29 07:43 | PC.NURSE ---
Central line inserted by anesthesiologist right side Triple Lumen
[2020-09-29] MEDS: piperacillin-tazobactam 3.375 GM in sodium chloride 0.9% (plus) 50 ML IV (07:45)
[2020-09-29 08:14] LABS: Bilirubin Urine 1+ (Negative); Blood Urine 3+ (Negative); Glucose Urine UA Norm (Normal); Ketones Urine Negative (Negative); Leukocyte Esterase Urine Trace (Negative); Nitrate Urine Negative (Negative); Protein Urine 1+ (Negative); RBC Urine 40-50 /hpf (0-2); Urine Appearance Bloody (CLEAR); Urine Color Red (Yellow); Urobilinogen Urine 4 mg/dL (Negative); pH Urine 6.5 (5-7)
[2020-09-29] MEDS: vancomycin 1,500 MG/300 ML PIGGYBACK 200 MG IV (08:14)
[2020-09-29 08:15] LABS: Add Urine Culture? No; Add Urine Microscopic? YES; Bacteria Urine TRACE /hpf; Squamous Epithelial Cell Urine 0-4 /hpf (0-5); WBC Urine 0-4 /hpf (0-5)
[2020-09-29 08:55] LABS: Lactic Acid level (Lactate) 3.3 mmol/L (0.5-2.2); Magnesium 2.1 mg/dL (1.7-2.3)
[2020-09-29 08:57] LABS: Creatine Phosphokinase 1702 U/L (26-192); Troponin 5 2HR 1450 ng/L (0-10); Troponin 5 2HR Delta 465 ABS# (0-10)
--- NOTE | 2020-09-29 10:19 | P.CONIM_ITS ---
Providers/Reason For Consult Consulting Physican/Specialty*: Baron Fink MD, hospitalist Reason for Consult*: Shock Primary Care Provider: Liza Davila NP History of Present Illness History of Present Illness Maria G Merritt is a 54 year old female with history of underlying severe aortic stenosis who presented to the emergency department short of breath, with confusion. She was on BiPAP when I was visiting with her and it was hard for her to relate any other symptoms. In reviewing multiple recent hospital stays she had recently been diagnosed and evaluated for severe aortic stenosis in July and recommended referral to health care service for TAVR. I believe this was likely lost to follow-up. At that time she was found to have only mild coronary artery disease, less than 20% stenosis in her LAD and RCA. Transesophageal echocardiogram demonstrated a valve area of 0.88 and a peak gradient of 74 and a mean gradient of 37 consistent with severe aortic stenosis. LVH with preserved EF was noted. Review of Systems General: Reports: ROS unobtainable due to mental status (On BiPAP, lethargic and unable to obtain review of systems) Meds/Allergies Home Medications and Allergies Home Medications Medication Instructions Recorded Confirmed Last Taken Type montelukast 10 mg tablet 10 mg PO DAILY@0800 06/17/19 09/28/20 09/28/20 History aripiprazole [Abilify] 5 mg PO DAILY@05/18/20 09/28/20 09/27/20 History paroxetine HCl [Paxil] 10 mg PO BEDTIME@05/18/20 09/28/20 09/27/20 History rosuvastatin 40 mg PO DAILY@05/18/20 09/28/20 09/27/20 History albuterol sulfate 2.5 mg INHALATION Q6H PRN 07/03/20 09/28/20 Unknown History fluticasone propionate 1 - 2 spray INTRANASAL DAILY PRN 07/03/20 09/28/20 Unknown History nitroglycerin [Nitrostat] 0.4 mg SUBLINGUAL Q5M PRN 07/03/20 09/28/20 Unknown History lactulose 20 g PO Q6H #2880 ml 07/27/20 09/28/20 09/28/20 Rx Eliquis 5 mg PO BID@0800,199908/16/20 09/28/20 09/28/20 History pantoprazole 40 mg PO DAILY@0600 08/16/20 09/28/20 09/28/20 History sennosides-docusate sodium 1 tab PO BEDTIME@2199 PRN 08/16/20 09/28/20 Unknown History [Senexon-S] zonisamide 100 mg PO BEDTIME@199908/16/20 09/28/20 09/27/20 History oxycodone-acetaminophen 1 tab PO BIDWMEAL PRN #10 tab 08/20/20 09/28/20 09/28/20 09:30 Rx acetaminophen [Tylenol] 325 - 650 mg PO QID PRN 09/24/20 09/28/20 Unknown History baclofen 10 mg PO TID PRN 09/24/20 09/28/20 09/28/20 10:30 History bisacodyl 10 mg CA DAILY PRN 09/24/20 09/28/20 Unknown History ferrous sulfate 325 mg PO DAILY@0809/24/20 09/28/20 09/28/20 History magnesium hydroxide [Milk of 400 mg PO DAILY PRN 09/24/20 09/28/20 Unknown History Magnesia] metolazone 2.5 mg PO DAILY@59909/24/20 09/28/20 09/28/20 History metoprolol tartrate 12.5 mg PO BID@08,199909/24/20 09/28/20 09/27/20 History ondansetron HCl [Zofran] 4 mg PO Q4H PRN 09/24/20 09/28/20 09/26/20 History potassium chloride 20 meq PO TID@,,09/24/20 09/28/20 09/28/20 History sodium phosphates [Enema 118 ml CA DAILY PRN 09/24/20 09/28/20 Unknown History Disposable] tamsulosin [Flomax] 0.4 mg PO DAILY@199909/24/20 09/28/20 09/27/20 History albuterol sulfate 2.5 mg/0.5 mL 5 mg INHALATION Q6H PRN 09/27/20 09/28/20 09/27/20 04:00 History solution for nebulization levothyroxine 125 mcg tablet 125 mcg PO DAILY@2200 tab 09/27/20 09/28/2009/27/21 History pneumoc 13-sina conj-dip cr(PF) 0.5 0.5 ml IM ONCE ml 09/27/20 09/28/20 Unknown History mL IM syringe furosemide 80 mg PO DAILY #0 tab 09/28/20 09/28/20 09/28/20 Rx simethicone 80,160 mg PO DAILY PRN 09/28/20 09/28/20 09/28/20 08:00 History Allergies Allergy/AdvReac Type Severity Reaction Status Date / Time adhesive tape Allergy Unknown Verified 09/28/20 12:58 influenza virus vaccine qs Allergy Unknown Verified 09/28/20 12:58 [id number] (36 mos, up) [From Single Use EZ Flu] Flu Allergy Unknown Unknown Uncoded 09/28/20 12:58 PFSH Acute PFSH: Medical History (Updated 09/29/20 @ 10:31 by Baron Fink MD) Abnormal angiogram Aortic valve stenosis Severe. Chronic back pain Cirrhosis COPD (chronic obstructive pulmonary disease) Generalized anxiety disorder Gross hematuria Work-up in process with cystoscopy planned for exclusion of bladder tumor History of UTI History of VRE UTI, chronic indwelling catheter Hyperlipidemia Hypertension Hypothyroidism Major depressive disorder, recurrent, moderate Obstructive pyelonephritis Osteoarthritis Sleep apnea Ureteral calculus, right Surgical History H/O cardiac catheterization H/O cystoscopy H/O lateral meniscus repair of left knee S/P thyroidectomy Family History Father Hypertension Hyperlipidemia Cancer Brother Hypertension CAD (coronary artery disease) Hyperlipidemia Sister Hypertension Cancer Grandfather Hypertension Diabetes Grandmother Hypertension CAD (coronary artery disease) Cancer Diabetes Mother CAD (coronary artery disease) Hypertension Hyperlipidemia Cancer Denies family history of Anesthesia complication Social History Smoking and tobacco status: current every day smoker cigarettes Years cigarettes smoked: 34 Quit status (tobacco): considering quitting Smoking risk assessment/counseling performed?: Yes Alcohol intake: current Alcohol intake frequency: holidays/special occasions only Desire information about alcohol rehabilitation?: No Counseling given: No Marital status: Single Current gender identity: Female Vitals/I&O/Wt Last Vital Signs Temp 98.9 F 09/29/20 09:29 Pulse 88 09/29/20 09:29 Resp 16 09/29/20 09:29 BP 87/57 09/29/20 09:29 Pulse Ox 100 09/29/20 09:29 09/28/20 09/29/20 09/29/20 22:59 06:59 14:59 Intake Total 0.093 / 0.093 50 / 50 Balance 0.093 / 0.093 50 / 50 Weight last 48 hrs Weight 181.437 kg Physical Exam Narrative: EXAM NARRATIVE: General exam is a white female, somewhat slow to respond on BiPAP but can answer a few limited questions. HEENT: Atraumatic and normocephalic. BiPAP noted. Oropharynx not examined Neck is supple no lymphadenopathy or thyromegaly Cardiovascular bilateral crackles, no wheezing Abdomen is soft obese nontender with positive bowel sounds. No obvious hepatomegaly demonstrates [place] with bloody drainage of urine Extremities show massive lymphedema bilaterally. Skin no rash Neurologic: No focal deficits but patient somewhat slow to respond Data Micro: Micro: Microbiology 09/29/20 05:00 Blood Culture - Pr eliminary Blood SPECIMEN [facility] RAN 09/29/20 05:20 Blood Culture - Pr eliminary Blood SPECIMEN [facility] Other Data: Other data: EKG demonstrates sinus rhythm, normal axis, inferior and lateral ST depression pH 7.46, PCO2 51, PO2 63. Magnesium 2.1 Lactate 3.3 Calcium 8.3 Bilirubin 1.4, AST 274, ALT 171, alk phos 514 CK 1700 Troponin IX 85 BNP 10,900 Albumin 2.2 Urinalysis is bloody with 40-50 red blood cells and 0 white blood cells per high-powered field CT abdomen and pelvis renal protocol demonstrates no obstructive uropathy, anasarca Chest x-ray demonstrates pulmonary edema with bilateral effusions A&P Assessment and plan (1) Cardiogenic shock: Concern is patient has cardiogenic shock. She has evidence of fluid overload with bilateral pleural effusions, pulmonary edema, elevated BNP. She has known preserved EF on recent LAMINE, and known severe aortic stenosis for which she is not a candidate for an open procedure. She has elevated creatinine now that is likely consistent with cardiorenal syndrome. With no history of fever, not significantly elevated white blood cell count, urinalysis that does not look overwhelmingly infected, and chest x-ray that has not changed this makes sepsis less likely. 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 According to records she had previously been referred to Dr. Sousa in [place] but I can find no confirmation that he has evaluated the patient. Agree with institution of norepinephrine in this patient with hypotension and ev idence of cardiogenic shock. She cannot be diuresed currently secondary to her hypotension and severe aortic stenosis, and fluid resuscitation is not indicated either. Status: Acute (2) Acute kidney injury: Likely secondary to cardiorenal syndrome Status: Acute (3) Aortic stenosis, severe: Previously evaluated by LAMINE as well as angiogram. No flow-limiting stenosis was noted on angiogram, minor disease 20% RCA and LAD. Status: Acute (4) Gross hematuria: Has indwelling catheter, and hematuria. It has been plan to do a cystoscopy on her to exclude bladder tumor. Status: Acute (5) Elevated troponin: Concern this is cardiac/coronary ischemia, in the face of her severe aortic stenosis. Status: Acute (6) Cirrhosis: Underlying cirrhosis seen on CT. She has some anemia as well. Cannot exclude varices at this time. Status: Acute Additional A&P Information Hypokalemia. Check magnesium level acute encephalopathy, likely secondary to her cardiogenic shock Multiple other medical problems as outlined in past medical history. Full code Consult Attestations Medical Necessity Statement: Not applicable, transferring to institution that offers TAVR Time Spent in Patient Care: Greater than 35 minutes Coding Level of Care Code Acute Integrated Circuit Layout Designer for g Fwd Diagnoses Cardiogenic shock R57.0 Acute kidney injury N17.9 Aortic stenosis, severe I35.0 Gross hematuria R31.0 Elevated troponin R77.8 Cirrhosis K74.60
== END 2020-09-29 09:39 | disposition short-term general hospital (02) ==
PROVIDERS: Family Medicine; Internal Medicine; Emergency Provider Family Medicine; PCP Nurse Practitioner Family
DX: R57.0 Cardiogenic shock (principal); I95.89 Other hypotension; I89.0 Lymphedema, not elsewhere classified; J96.02 Acute respiratory failure with hypercapnia; R77.8 Other specified abnormalities of plasma proteins; R74.02 Elevation of levels of lactic acid dehydrogenase [LDH]; N17.9 Acute kidney failure, unspecified; I35.0 Nonrheumatic aortic (valve) stenosis; I11.0 Hypertensive heart disease with heart failure; I50.9 Heart failure, unspecified; J44.9 Chronic obstructive pulmonary disease, unspecified; E78.5 Hyperlipidemia, unspecified; F17.210 Nicotine dependence, cigarettes, uncomplicated
CPT/HCPCS: 36415; 36416; 36556; 36600; 71045; 74176; 80053; 81001; 82550; 82805; 82962; 83605; 83735; 83880; 84484; 85025; 85730; 87040; 87077; 87086; 87186; 87426; 87804; 93005; 94660; 96365; 96366; 96367; 99291; 99292; J2543; J3370; J3480; J7040